=== PATIENT | female | born 1940 | race Caucasian/White ===

== ENCOUNTER 2021-11-21 10:12 | Outpatient (CLI) | payer OTHER, SELFPAY ==
--- NOTE | 2021-11-21 13:00 | US_ITS ---
Final Report Patient: SALVATORE DOAN Facility:?[facility] Patient ID:?[id number] Site Patient ID:?[id number]. Site :?[id number] Study:?US Extremity Right -11/21/2021 1:39:26 PM Ordering Physician:Gloria Rosenthal Final Report: INDICATION: Leg pain and swelling. TECHNIQUE: Ultrasound venous duplex lower right extremity. Compression venous exam was performed using bear-scale, color Doppler, and spectral Doppler analysis. COMPARISON: None. FINDINGS: Deep veins: Sonographic imaging demonstrates the right common femoral, deep femoral, superficial femoral, popliteal, posterior tibial and the contralateral left common femoral veins to be fully compressible with normal color Doppler blood flow. Superficial veins: Greater saphenous vein is fully compressible. Small complex avascular collection posterior to the knee may be hematoma from recent surgery. Correlate for infection. IMPRESSION: No evidence of acute deep venous thrombosis. Dictated by Artemio House MD @ 11/21/2021 2:07:15 PM (Electronic Signature)
== END 2021-11-21 10:13 | disposition home or self-care (01) ==
PROVIDERS: PCP Family Medicine; Visit Provider Physician Assistant Surgical
DX: I82.401 Acute embolism and thrombosis of unspecified deep veins of right lower extremity (principal); Z98.890 Other specified postprocedural states
CPT/HCPCS: 93971

== ENCOUNTER 2022-01-02 09:47 | Outpatient (CLI) | payer OTHER, SELFPAY ==
--- NOTE | 2022-01-02 10:15 | CRLHL7_ITS ---
For Patients: As a result of the Century Cures Act, medical imaging exams and procedure reports are released immediately into your electronic medical record. You may view this report before your referring provider. If you have questions, please contact your health care provider. Indication: RT HIP OSTEOARTHRITIS Comparison: 09/10/2021 Procedure : Informed consent was obtained. The site was marked. Time-out was performed. The skin of the right hip was cleansed with ChloraPrep. A sterile drape was placed. 12 cc of 1 percent lidocaine was administered for superficial anesthesia. Subsequently a 22 gauge spinal needle was introduced into the right hip joint under intermittent fluoroscopic guidance. Subsequently 7 cc 1 percent lidocaine and 2 cc 40 milligram/cc Depo-Medrol were injected. The needle was removed and hemostasis achieved with direct pressure. A dressing was placed. The patient tolerated the procedure well without immediate complication. Total fluoroscopy time 13 seconds. Impression: Successful fluoroscopically guided right hip injection with 80 milligrams of Depo-Medrol. Dictated by Chris Keita MD @ 01/02/2022 11:23:15 AM (Electronically Signed)
== END 2022-01-02 09:48 | disposition home or self-care (01) ==
LOC: RAD 09:48
PROVIDERS: PCP Family Medicine; Visit Provider Physician Assistant Surgical
DX: M16.11 Unilateral primary osteoarthritis, right hip (principal)
CPT/HCPCS: 20610; 77002; J1030; Q9966

== ENCOUNTER 2022-01-21 16:26 | Emergency (ER) | payer OTHER, SELFPAY ==
[2022-01-21 16:33] VITALS: BP 184/101; PULSE 95; RESP 18; TEMP 36.6; O2SAT 95; BMI 30.2
--- NOTE | 2022-01-21 16:49 | ED_ITS ---
HPI - General Adult General Time Seen by Provider: 16:49 Date Seen: 01/21/22 Chief complaint: Allergic Reaction Stated complaint: Bee Sting Swelling in Lip Time Seen by Provider: 01/21/22 16:39 Source: patient Mode of arrival: ambulatory Limitations: no limitations History of Present Illness HPI narrative: Patient is an 81 year white female who has not had any history of insect bite reactions, was feeding gently to insects and birds and got bitten the right finger about an hour ago. She initially had some swelling in her right index finger stinger was gone, but she noticed some itching in her antecubital area and then lower lip swelling. No tongue swelling, no shortness of breath, no rashes. No other systemic signs of illness. Patient has been feeling well recently her medication history is reviewed. Related Data Home Medications Medication Instructions Recorded Confirmed ascorbic acid (vitamin C) 1,000 mg 1,000 mg PO DAILY 11/19/21 12/25/21 tablet aspirin 81 mg tablet,delayed mg PO DAILY 11/19/21 12/25/21 release clopidogrel 75 mg tablet mg PO DAILY 11/19/21 12/25/21 hydrochlorothiazide 12.5 mg capsule mg PO DAILY 11/19/21 12/25/21 hydroxyurea 500 mg capsule 500 mg PO BID 11/19/21 12/25/21 simvastatin 20 mg tablet 20 mg PO DAILY 11/19/21 12/25/21 cholecalciferol (vitamin D3) 25 25 mcg PO QDAY 11/21/21 12/25/21 mcg (1,000 unit) capsule vitamin E (dl, acetate) 450 mg 450 mg PO QDAY 11/21/21 12/25/21 (1,000 unit) capsule Previous Rx's Medication Instructions Recorded Walker- 2 Wheels #1 ea 12/25/21 prednisone 20 mg tablet 20 mg PO BID #10 tabs 01/21/22 Allergies Allergy/AdvReac Type Severity Reaction Status Date / Time alendronate sodium Allergy Severe severe Verified 12/25/21 08:57 aches Review of Systems Status of ROS: Reports: 6 or more systems reviewed and unremarkable except as noted in History and below [facility] Medical History Arthritis Asthma Back problem Cancer Elevated cholesterol High blood pressure History of cerebrovascular accident IBS (irritable bowel syndrome) Kidney problem Neck problem Osteoporosis Surgical History Bone spur History of hysterectomy Hx of breast biopsy Weakness of pelvic floor Family History Family/Other Breast cancer Colorectal cancer Sister Ovarian cancer Father Prostate cancer Paternal Grandmother Diabetes Mother CHF (congestive heart failure) Stroke Family/Other Parkinson disease Alcohol dependence Social History Narrative: Marital Status: 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 HEENT shows some swelling of the lower lip, tongue and rest her throat appear unremarkable Lungs are clear Small amount of redness and swelling in the index finger diffusely little bit of rash in the antecubital area on the right arm Neurologic nonfocal No other skin rashes or problems noted Const: Vital Signs, click to edit/add: Vital Signs - 24 hr 01/21/22 16:33 Temperature 97.8 F Pulse Rate [Left P ulse Oximeter] 95 Respiratory Rate 18 Blood Pressure [Le ft Upper Arm] 184/101 H Pulse Oximetry 95 Oxygen Delivery Me thod Room Air Course Vital Signs Vital signs: Initial Vital Signs Temperature 97.8 F 01/21/22 16:33 Temperature Source Temporal Artery Scan 01/21/22 16:33 Pulse Rate 95 01/21/22 16:33 Respiratory Rate 18 01/21/22 16:33 Blood Pressure 184/101 H 01/21/22 16:33 Blood Pressure Mean 128 01/21/22 16:33 Blood Pressure Position Sitting 01/21/22 16:33 Pulse Oximetry 95 01/21/22 16:33 Oxygen Delivery Method 01/21/22 16:33 Vital Signs Temperature 97.8 F 01/21/22 16:33 Pulse Rate 95 01/21/22 16:33 Respiratory Rate 18 01/21/22 16:33 Blood Pressure 184/101 H 01/21/22 16:33 Pulse Oximetry 95 01/21/22 16:33 Oxygen Delivery Method 01/21/22 16:33 Temperature 97.8 F 01/21/22 16:33 Pulse Rate 95 01/21/22 16:33 Respiratory Rate 18 01/21/22 16:33 Blood Pressure 184/101 H 01/21/22 16:33 Pulse Oximetry 95 01/21/22 16:33 Oxygen Delivery Method 01/21/22 16:33 Medical Decision Making MDM Narrative Medical decision making narrative: The patient will be given Benadryl 50 mg orally and prednisone 50 mg orally now. Will have her take Benadryl 25 mg t.i.d. over the next 3 days as well as prednisone 20 mg b.i.d. starting tomorrow for 5 days. I would recommend she talk about this with her regular physician. She lives locally and will return if there is changes or concerns, throat tightening, difficulty breathing, or other concern. Should be observed in the ED for period of time. And will recheck as above. Discharge Plan Discharge Clinical Impression: Allergic reaction to insect bite Patient Disposition: Home w/ Parent or Adult Condition: Stable Additional Instructions: Light activity, prednisone 20 mg b.i.d. x3 days start tomorrow, Benadryl 25 mg t.i.d. to take an additional tablet tonight and then start 3 tablets tomorrow, return if any difficulty breathing through tongue swelling or other concern. Follow up with primary care doctor in the next few days. Activity Level: Light activity Discharge Diet: Regular Prescriptions: New prednisone 20 mg tablet 20 mg PO BID Qty: 10 0RF No Action hydrochlorothiazide 12.5 mg capsule PO DAILY simvastatin 20 mg tablet 20 mg PO DAILY aspirin 81 mg tablet,delayed release (DR/EC) PO DAILY clopidogrel 75 mg tablet PO DAILY hydroxyurea 500 mg capsule 500 mg PO BID ascorbic acid (vitamin C) 1,000 mg tablet 1,000 mg PO DAILY cholecalciferol (vitamin D3) 25 mcg (1,000 unit) capsule 25 mcg PO QDAY vitamin E (dl, acetate) 450 mg (1,000 unit) capsule 450 mg PO QDAY (DME) Walker- 2 Wheels Misc See Rx Instructions .Route Qty: 1 0RF Rx Instructions: As directed Follow Up/Referrals: Darleen Dacosta DO [Primary Care Provider] - Stand Alone Forms: [facility] Info Instructions
[2022-01-21] MEDS: diphenhydrAMINE 25 MG CAPSULE 50 MG PO (16:54)
[2022-01-21] MEDS: predniSONE 10 MG TABLET 50 MG PO (16:55)
[2022-01-21 17:02] VITALS: PULSE 86; O2SAT 96
== END 2022-01-21 17:03 | disposition home or self-care (01) ==
LOC: ED 16:53
PROVIDERS: Emergency Provider Family Medicine; PCP Family Medicine
DX: S00.561A Insect bite (nonvenomous) of lip, initial encounter (principal); Z91.038 Other insect allergy status
CPT/HCPCS: 99282; 99283; A9270; J7512

== ENCOUNTER 2022-01-28 09:45 | Outpatient (RCR) | payer OTHER, SELFPAY ==
--- NOTE | 2021-12-02 12:10 | PT.OPEX ---
PT [place] [facility] Eval PT [facility] Eval Start: 12/02/21 12:01 Freq: Status: Active Protocol: Document 12/02/21 12:01 REY (Rec: 12/02/21 12:03 REY [id number]) E-Signed By Kenny Villareal DPT, MS Physical Therapy Outpatient Evaluation Insurance Information Recert Due Date 03/02/22 Insurance Name Medicare B,[employer] Medical Diagnosis Post-op right lateral meniscectomy; mild right knee OA Treating Diagnosis R Knee pain, decreased R LE flexibility, gait dysfunction, imbalance and R LE weakness. Subjective Subjective Pt is an 81 y.o. female who presents to PT s/p R lateral meniscectomy on 11/12/21. Has had a difficult past few weeks due to tightness, pain and swelling in her knee. US negative for DVT at MD follow up. Taking Pavlix and oral chemo medication to treat ongoing blood cancer. Using 4WW at home and a SPC to go to appointments, but walking remains very difficult. Months of knee pain and limping prior to surgery with unsuccessful conservative management. Pt also concerned about R hip pain due to OA. Pt ?s goals are to return to performing household cleaning and daily activities with less pain. 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 AGGR factors: stair climbing, walking, sleeping, uneven surfaces, carrying objects, in <>out of cars and low chairs, squatting, lifting. ALLEV factors: ice, movement. Pain Comments 2-3/10 current; 6-7/10 at worst Date of Surgery (If applicable) 11/12/21 Current Work Status Retired Preferred Name Pat Precautions Weight Bearing Status Weight Bear as Tolerated Therapy Limitations/Systems Review Vision Assessment Assessment/Impression Pt continues to display gait compensations and elevated R knee pain levels at 2.5 weeks post-op. Moderate quality of QS with mod A required for SLR . Knee ROM improved from 0-2- 107 deg to 0-0-136 deg following NuStep and heel slides. Impaired quad NM activation with AROM and during stance phase of gait with SPC. Emphasized importance of movement to decreased tightness and edema. She responded well to stretching, strengthening and NuStep with decreased knee pain with amb following today? s session. She will benefit from continued skilled PT intervention. Primary Functional Limitations Stair climbing, walking, sleeping, uneven surfaces, carrying objects, in<>out of cars and low chairs, squatting , lifting Plan of Care Rehabilitation Potential Excellent Physical Therapy Goals Long-term goals to be completed in 10 weeks: 1. Pt will be independent and compliant with HEP 2. Pt will display improved R knee ROM >0-0-128 deg to improve quality of gait. 3. Pt will be able to return to walking for >8 minutes without assistive device to improve cardiovascular fitness . 4. Pt will report >50% improvement in LEFS questionnaire to significantly improve tolerance to functional activities. 5. Pt will display improved R quad, hip flex, ABD and ext strength >4/5 to improve quality of gait. Coordination/Communication With Referral Source Treatment Plan/Direct Interventions Gait Training,Joint Mobilization,Manual Therapy, Neuromuscular Re-ed,Self-Care/ Home Management,Therapeutic Activities,Therapeutic Exercises Frequency/Duration 1x per week for 8-10 visits Patient Will Be Discharged From Therapy Completion of LTG(s),Skills Plateau,Independent w/HEP, Independently Progressing Evaluation Billing Untimed Code Treatment Minutes 24 Complexity Moderate Certification Information Initial Certification Date 12/02/21 Ending Certification Date 03/02/22
== END 2022-01-30 08:45 | disposition home or self-care (01) ==
PROVIDERS: PCP Family Medicine; Referring Provider Physician Assistant Surgical; Visit Provider Physician Assistant Surgical
DX: M25.561 Pain in right knee (principal); Z51.89 Encounter for other specified aftercare
CPT/HCPCS: 97110; 97116; 97140; 97162

== ENCOUNTER 2022-03-13 09:44 | Inpatient (IN) | payer OTHER, SELFPAY ==
[2022-03-13] VITALS (8 sets, daily range): BP systolic 122–164; BP diastolic 54–90; PULSE 74–78; RESP 16–18; TEMP 35.9–36.2; O2SAT 97–99; BMI 30.6; BMI 30.2
--- NOTE | 2022-03-13 10:00 | ED.GENADULT ---
HPI - General Adult General Time Seen by Provider: 10:01 Date Seen: 03/13/22 Chief complaint: Diarrhea Stated complaint: mucus in stool Time Seen by Provider: 03/13/22 10:00 Source: patient and RN notes reviewed Mode of arrival: ambulatory Limitations: no limitations History of Present Illness HPI narrative: Patient is a very pleasant 81-year-old female that was told by her triage nurse at her clinic to come into the ER for mucous diarrheal stools. Patient started on Wednesday having some diarrhea. Through the week the stools have become mucous see and gas. There is not really much stool. She has occasionally noticed just a tiny amount of blood but nothing that was concerning to her. She has had no fevers. She has abdominal cramping like she has to have a stool. No significant abdominal pain. Is able to still eat and drink although eating does induce stooling. Does not feel her abdomen is bloated. There is certainly no nausea or vomiting. She reports a history of being at [facility] in the hospital maybe about a year ago, states she had a colonoscopy for similar symptoms and was told she had ischemic colitis. She thinks she was told she had diverticulitis as well but I am wondering if it was actually diverticulosis. She remembers being told that she had diverticulitis on a prior scope as well and did do feel that she is probably with diverticulosis. She does not have a history of C difficile colitis. She has had no recent antibiotic use. Related Data Home Medications Medication Instructions Recorded Confirmed ascorbic acid (vitamin C) 1,000 mg 1,000 mg PO DAILY 11/19/21 03/13/22 tablet aspirin 81 mg tablet,delayed 81 mg PO DAILY 11/19/21 03/13/22 release clopidogrel 75 mg tablet 75 mg PO DAILY 11/19/21 03/13/22 hydrochlorothiazide 12.5 mg capsule 12.5 mg PO DAILY 11/19/21 03/13/22 hydroxyurea 500 mg capsule 500 mg PO BID 11/19/21 03/13/22 simvastatin 20 mg tablet 20 mg PO DAILY 11/19/21 03/13/22 cholecalciferol (vitamin D3) 25 25 mcg PO QDAY 11/21/21 03/13/22 mcg (1,000 unit) capsule vitamin E (dl, acetate) 450 mg 450 mg PO QDAY 07/01/22 10/21/22 (1,000 unit) capsule Previous Rx's Medication Instructions Recorded Walker- 2 Wheels #1 ea 12/25/21 acetaminophen 325 mg tablet 650 mg PO QID PRN #60 tabs 03/18/22 loperamide 2 mg capsule 2 mg PO QID PRN 7 days #20 caps 03/18/22 Allergies Allergy/AdvReac Type Severity Reaction Status Date / Time alendronate sodium Allergy Severe severe Verified 03/13/22 11:08 aches Review of Systems Status of ROS: Reports: 10 or more systems reviewed and unremarkable except as noted in History and below PFSH [facility] Medical History (Updated 03/26/22 @ 00:01 by ) Acute left flank pain Arthritis Asthma Back problem Cancer Colitis Elevated cholesterol High blood pressure History of cerebrovascular accident IBS (irritable bowel syndrome) JAK2 gene mutation Kidney problem Macrocytosis without anemia Neck problem Osteoarthritis of right hip Osteoarthritis of right knee Osteoporosis Pelvic floor dysfunction in female Polycythemia vera Surgical History (Updated 03/13/22 @ 12:57 by Lori Pyle MD) Bone spur History of hysterectomy Hx of breast biopsy S/P arthroscopic partial lateral meniscectomy Weakness of pelvic floor Family History Family/Other Breast cancer Colorectal cancer Sister Ovarian cancer Father Prostate cancer Paternal Grandmother Diabetes Mother CHF (congestive heart failure) Stroke Family/Other Parkinson disease Alcohol dependence Social History Narrative: Marital Status: 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[employer] Alcohol Use: No Recreational Drug Use: No Smoking Status: Never smoker Do you use any of these nicotine containing products: None Second hand tobacco smoke exposure: No How often do you have a drink containing alcohol: never AUDIT-C Alcohol total score: 0 Non-prescribed substance use: denies use Caffeine: No service: No Exam Const: Vital Signs, click to edit/add: Vital Signs - 24 hr 03/13/22 09:50 03/13/22 10:08 03/13/22 09:50 Temperature 97.2 F L 97.2 F L Pulse Rate [Left P ulse Oximeter] 78 78 Respiratory Rate 16 16 Blood Pressure [Ri ght Upper Arm] 164/90 H 164/90 H Pulse Oximetry 98 99 99 03/13/22 10:00 03/13/22 10:30 03/13/22 11:00 Temperature Pulse Rate [Left P ulse Oximeter] Respiratory Rate Blood Pressure [Ri ght Upper Arm] 127/62 132/58 L 131/80 Pulse Oximetry Documenting provider has reviewed patient's vital signs: yes Common normals: no apparent distress, average body habitus, oriented x3, no limitations, healthy appearing, alert and well nourished General appearance: cooperative, comfortable and well kempt HENMT: Common normals: normocephalic, head/scalp atraumatic, hearing grossly normal bilaterally, external ears normal, external nose normal, nasal mucous membranes and turbinates normal, moist oral mucous membranes, oropharynx normal, dentition normal and gingiva normal Head and scalp: normocephalic and atraumatic Nose: external nose normal and nasal mucous membranes and turbinates normal External ear: external ears normal Eye: Common normals: PERRL, EOMs intact bilaterally, conjunctivae normal and no scleral icterus Conjunctiva: conjunctiva(e) normal Pupil: PERRL Neck & C-Spine: Common normals: full ROM, no lymphadenopathy, supple, no meningeal signs, no JVD and thyroid normal Thyroid: thyroid normal Resp: Common normals: normal respiratory effort, no retractions, no use of accessory muscles and clear to auscultation bilaterally Auscultation: clear to auscultation bilaterally Cardio: Common normals: no JVD, regular rate, regular rhythm, S1 normal heart sound, S2 normal heart sound, no gallops, no clicks and no murmurs Rate: regular rate Rhythm: regular rhythm Heart sounds: S1 normal and S2 normal GI: Common normals: Normal to inspection, nondistended, normoactive bowel sounds present, soft to palpation, non-tender, no hepatosplenomegaly and no masses Palpation: soft and no hepatosplenomegaly Extremity: Other: No lower extremity edema noted Neuro: Common normals: oriented x3 Sensorium/orientation: alert Meningeal signs: no meningeal signs Psych: Appearance: well kempt Course Course Hospital Course: Will establish an IV, give her 250 mL saline bolus as she does clinically look hydrated. If this is ischemic colitis fluid supports certainly can be beneficial. Will await labs, CT abdomen pelvis with IV contrast. Have ordered for stool study of C difficile. With mucousy diarrhea, colitis is certainly high in the differential. This does not sound infectious in nature but will still consider that. Consultations Consultation #1: Have spoke with Dr. Pyle regarding this patient. She agrees with admission. She will look into the last admission at [facility], we will hold on any antibiotics. She will see if she wants to consult surgery or not. I will let patient know that she is being placed in the hospital. Time: 11:43 Vital Signs Vital signs: Initial Vital Signs Temperature 97.2 F L 03/13/22 09:50 Temperature Source Temporal Artery Scan 03/13/22 09:50 Pulse Rate 78 03/13/22 09:50 Pulse Rhythm 03/13/22 09:50 Pulse Strength 3+ Normal 03/13/22 09:50 Respiratory Rate 16 03/13/22 09:50 Blood Pressure 164/90 H 03/13/22 09:50 Blood Pressure Mean 114 03/13/22 09:50 Blood Pressure Position Sitting 03/13/22 09:50 Pulse Oximetry 98 03/13/22 09:50 Vital Signs Temperature 97.2 F L 03/13/22 09:50 Pulse Rate 78 03/13/22 09:50 Respiratory Rate 16 03/13/22 09:50 Blood Pressure 164/90 H 03/13/22 09:50 Pulse Oximetry 98 03/13/22 09:50 Temperature 97 F L 03/18/22 10:44 Pulse Rate 82 03/18/22 07:00 Respiratory Rate 18 03/18/22 10:44 Blood Pressure 117/41 L 03/18/22 07:00 Pulse Oximetry 98 03/18/22 07:00 Oxygen Delivery Method 03/18/22 07:00 Medical Decision Making Lab Data Lab results reviewed: Yes I reviewed the patient's lab results Labs: Lab Results 03/13/22 03/13/22 03/13/22 Range/Units 10:20 10:20 10:20 WBC 4.97 (4.50-11.00) K/uL RBC 3.34 L (4.00-5.20) m/uL Hgb 12.8 (12.0-16.0) gm/dL Hct 40.5 (33.0-51.0) % MCV 121 H (80-100) fL MCH 38 H (26-34) pg MCHC 32 (32-36) gm/dL RDW Coeff of Boy 15.0 (11.5-15.5) % Plt Count 273 (140-440) K/uL Neut % (Auto) 68.0 (42.0-72.0) % Lymph % (Auto) 19.5 L (20-44) % [place] % (Auto) 9.7 (0.0-11.0) % Eos % (Auto) 1.8 (0.0-7.0) % Baso % (Auto) 0.6 (0.0-3.0) % Neut # (Auto) 3.38 (1.7-7.0) K/uL Lymph # (Auto) 1.00 (0.90-2.90) K/uL [place] # (Auto) 0.50 (0.00-0.90) K/UL Eos # (Auto) 0.09 (0.00-0.50) K/uL Baso # (Auto) 0.03 (0.00-0.30) K/uL Abs Immat Gran (auto) 0.02 (0.00-0.30) K/uL Diff Slide Review Acceptable Review (Acceptable) ESR 29 H (2-20) mm/hr Sodium 137 (135-149) mmol/L Potassium 4.2 (3.6-5.1) mmol/L Chloride 98 (96-114) mmol/L Carbon Dioxide 31 (20-32) mmol/L BUN 17 (7-30) mg/dL Creatinine 0.7 (0.5-1.5) mg/dL Estimated Creat Clear 33.86 Estimated GFR 87 ml/min Glucose 94 (60-115) mg/dL Lactate (0.5-1.9) mmol/L Calcium 10.4 (8.4-10.6) mg/dL Total Bilirubin 0.4 (0.1-1.5) mg/dL AST 24 (12-35) U/L ALT 12 (4-35) U/L Alkaline Phosphatase 89 (40-150) U/L C-Reactive Protein 1.5 H (0.5-1.0) mg/dL Total Protein 7.3 (6.0-8.3) g/dL Albumin 3.9 (3.3-5.0) g/dL Stl C.difficile Tox PCR St C. diff Tox Epid 027 SARS-CoV-2 (PCR) (Negative) 03/13/22 03/13/22 03/13/22 Range/Units 10:20 10:20 14:10 WBC (4.50-11.00) K/uL RBC (4.00-5.20) m/uL Hgb (12.0-16.0) gm/dL Hct (33.0-51.0) % MCV (80-100) fL MCH (26-34) pg MCHC (32-36) gm/dL RDW Coeff of Boy (11.5-15.5) % Plt Count (140-440) K/uL Neut % (Auto) (42.0-72.0) % Lymph % (Auto) (20-44) % [place] % (Auto) (0.0-11.0) % Eos % (Auto) (0.0-7.0) % Baso % (Auto) (0.0-3.0) % Neut # (Auto) (1.7-7.0) K/uL Lymph # (Auto) (0.90-2.90) K/uL [place] # (Auto) (0.00-0.90) K/UL Eos # (Auto) (0.00-0.50) K/uL Baso # (Auto) (0.00-0.30) K/uL Abs Immat Gran (auto) (0.00-0.30) K/uL Diff Slide Review (Acceptable) ESR (2-20) mm/hr Sodium (135-149) mmol/L Potassium (3.6-5.1) mmol/L Chloride (96-114) mmol/L Carbon Dioxide (20-32) mmol/L BUN (7-30) mg/dL Creatinine (0.5-1.5) mg/dL Estimated Creat Clear Estimated GFR ml/min Glucose (60-115) mg/dL Lactate 0.9 (0.5-1.9) mmol/L Calcium (8.4-10.6) mg/dL Total Bilirubin (0.1-1.5) mg/dL AST (12-35) U/L ALT (4-35) U/L Alkaline Phosphatase (40-150) U/L C-Reactive Protein (0.5-1.0) mg/dL Total Protein (6.0-8.3) g/dL Albumin (3.3-5.0) g/dL Stl C.difficile Tox PCR Cancelled Negative St C. diff Tox Epid 027 Cancelled PRESUMPTIVE NEGATIVE SARS-CoV-2 (PCR) Negative SARS-CoV-2 (Negative) 03/14/22 03/14/22 03/14/22 Range/Units 08:59 08:59 08:59 WBC 4.27 L (4.50-11.00) K/uL RBC 3.09 L (4.00-5.20) m/uL Hgb 12.1 (12.0-16.0) gm/dL Hct 38.0 (33.0-51.0) % MCV 123 H (80-100) fL MCH 39 H (26-34) pg MCHC 32 (32-36) gm/dL RDW Coeff of Boy 15.4 (11.5-15.5) % Plt Count 273 (140-440) K/uL Neut % (Auto) 67.2 (42.0-72.0) % Lymph % (Auto) 21.3 (20-44) % [place] % (Auto) 8.2 (0.0-11.0) % Eos % (Auto) 2.1 (0.0-7.0) % Baso % (Auto) 0.7 (0.0-3.0) % Neut # (Auto) 2.90 (1.7-7.0) K/uL Lymph # (Auto) 0.90 (0.90-2.90) K/uL [place] # (Auto) 0.40 (0.00-0.90) K/UL Eos # (Auto) 0.10 (0.00-0.50) K/uL Baso # (Auto) 0.00 (0.00-0.30) K/uL Abs Immat Gran (auto) 0.02 (0.00-0.30) K/uL Diff Slide Review (Acceptable) ESR 23 H (2-20) mm/hr Sodium 138 (135-149) mmol/L Potassium 4.1 (3.6-5.1) mmol/L Chloride 104 (96-114) mmol/L Carbon Dioxide 31 (20-32) mmol/L BUN 12 (7-30) mg/dL Creatinine 0.8 (0.5-1.5) mg/dL Estimated Creat Clear 33.86 Estimated GFR 74 ml/min Glucose 127 H (60-115) mg/dL Lactate (0.5-1.9) mmol/L Calcium 8.9 (8.4-10.6) mg/dL Total Bilirubin (0.1-1.5) mg/dL AST (12-35) U/L ALT (4-35) U/L Alkaline Phosphatase (40-150) U/L C-Reactive Protein 1.0 (0.5-1.0) mg/dL Total Protein (6.0-8.3) g/dL Albumin (3.3-5.0) g/dL Stl C.difficile Tox PCR St C. diff Tox Epid 027 SARS-CoV-2 (PCR) (Negative) 03/15/22 03/15/22 03/15/22 Range/Units 06:57 06:57 06:57 WBC 4.14 L (4.50-11.00) K/uL RBC 3.00 L (4.00-5.20) m/uL Hgb 11.6 L (12.0-16.0) gm/dL Hct 36.5 (33.0-51.0) % MCV 122 H (80-100) fL MCH 39 H (26-34) pg MCHC 32 (32-36) gm/dL RDW Coeff of Boy 15.1 (11.5-15.5) % Plt Count 261 (140-440) K/uL Neut % (Auto) 62.3 (42.0-72.0) % Lymph % (Auto) 20.3 (20-44) % [place] % (Auto) 14.0 H (0.0-11.0) % Eos % (Auto) 2.2 (0.0-7.0) % Baso % (Auto) 0.7 (0.0-3.0) % Neut # (Auto) 2.60 (1.7-7.0) K/uL Lymph # (Auto) 0.80 L (0.90-2.90) K/uL [place] # (Auto) 0.60 (0.00-0.90) K/UL Eos # (Auto) 0.10 (0.00-0.50) K/uL Baso # (Auto) 0.00 (0.00-0.30) K/uL Abs Immat Gran (auto) 0.02 (0.00-0.30) K/uL Diff Slide Review (Acceptable) ESR 23 H (2-20) mm/hr Sodium 138 (135-149) mmol/L Potassium 3.8 (3.6-5.1) mmol/L Chloride 107 (96-114) mmol/L Carbon Dioxide 26 (20-32) mmol/L BUN 11 (7-30) mg/dL Creatinine 0.7 (0.5-1.5) mg/dL Estimated Creat Clear 33.86 Estimated GFR 87 ml/min Glucose 91 (60-115) mg/dL Lactate (0.5-1.9) mmol/L Calcium 8.8 (8.4-10.6) mg/dL Total Bilirubin (0.1-1.5) mg/dL AST (12-35) U/L ALT (4-35) U/L Alkaline Phosphatase (40-150) U/L C-Reactive Protein 2.0 H (0.5-1.0) mg/dL Total Protein (6.0-8.3) g/dL Albumin (3.3-5.0) g/dL Stl C.difficile Tox PCR St C. diff Tox Epid 027 SARS-CoV-2 (PCR) (Negative) 03/15/22 03/16/22 03/16/22 Range/Units 16:48 11:30 11:30 WBC 5.25 (4.50-11.00) K/uL RBC 3.49 L (4.00-5.20) m/uL Hgb 13.4 (12.0-16.0) gm/dL Hct 42.7 (33.0-51.0) % MCV 122 H (80-100) fL MCH 38 H (26-34) pg MCHC 31 L (32-36) gm/dL RDW Coeff of Boy (11.5-15.5) % Plt Count 323 (140-440) K/uL Neut % (Auto) (42.0-72.0) % Lymph % (Auto) (20-44) % [place] % (Auto) (0.0-11.0) % Eos % (Auto) (0.0-7.0) % Baso % (Auto) (0.0-3.0) % Neut # (Auto) (1.7-7.0) K/uL Lymph # (Auto) (0.90-2.90) K/uL [place] # (Auto) (0.00-0.90) K/UL Eos # (Auto) (0.00-0.50) K/uL Baso # (Auto) (0.00-0.30) K/uL Abs Immat Gran (auto) (0.00-0.30) K/uL Diff Slide Review (Acceptable) ESR (2-20) mm/hr Sodium (135-149) mmol/L Potassium 3.6 (3.6-5.1) mmol/L Chloride (96-114) mmol/L Carbon Dioxide (20-32) mmol/L BUN (7-30) mg/dL Creatinine (0.5-1.5) mg/dL Estimated Creat Clear Estimated GFR ml/min Glucose (60-115) mg/dL Lactate (0.5-1.9) mmol/L Calcium (8.4-10.6) mg/dL Total Bilirubin (0.1-1.5) mg/dL AST (12-35) U/L ALT (4-35) U/L Alkaline Phosphatase (40-150) U/L C-Reactive Protein 5.0 H (0.5-1.0) mg/dL Total Protein (6.0-8.3) g/dL Albumin (3.3-5.0) g/dL Stl C.difficile Tox PCR Negative St C. diff Tox Epid 027 PRESUMPTIVE NEGATIVE SARS-CoV-2 (PCR) (Negative) Imaging Data CT scan - abdomen: Attestation: I have reviewed the pertinent imaging results. Radiologist's impression: Patient: SALVATORE DOAN Facility:?[facility] Patient ID:?[id number] Site Patient ID:?[id number]. Site :?[id number] Study:?CT Abdomen/Pelvis W/ 79CC [id number]/21/2022 11:18:56 AM Ordering Physician:?Belkis Goodman Final Report: INDICATION: History of colitis with mucousy diarrhea. COMPARISON: March 26, 2021 TECHNIQUE: CT examination of the abdomen and pelvis was performed following the uneventful intravenous administration of 79 cc of Isovue 370. Thin section axial images were obtained from the lung bases through the pubic symphysis. Oral contrast was not administered. Please note that all CT scans at this facility use dose modulation, iterative reconstruction, and/or weight-based dosing when appropriate to reduce radiation dose to as low as reasonably achievable. FINDINGS: LUNG BASES: Lung bases appear normal. The heart size is normal and the lung bases. LIVER/BILIARY SYSTEM:The liver shows no focal mass. Gallbladder is unremarkable. No biliary ductal dilatation. ADRENALS: Normal KIDNEYS, URETERS and BLADDER:The kidneys are normal in size. There are numerous intrarenal calculi bilaterally. These were present previously. No evidence of current or recent obstructive uropathy. Scattered bilateral renal lesions are likely cysts though some of the smaller lesions are indeterminate. Similar to the prior study. The bladder appears normal SPLEEN:Granulomatous calcifications PANCREAS: Appears normal. RETROPERITONEUM and MESENTERY: There is no mass, adenopathy or aortic aneurysm. Atherosclerotic vascular calcifications GASTROINTESTINAL SYSTEM: Relatively severe thickening of a segment of the sigmoid. This does not appear to represent diverticulitis and either represents focal colitis or in long segment malignancy. Of note, the patient had a similar finding on the prior examination. No collection. There is also perianal inflammatory process which is similar to the prior study and probably unrelated to the sigmoid finding. Correlate clinically PELVIS: No mass, adenopathy or free fluid. OSSEOUS STRUCTURES and ABDOMINAL WALL: There is an age-appropriate appearance of the osseous structures.No significant abdominal wall defect. OTHER: No free fluid or free air. IMPRESSION: 1. Relatively severe thickening of a segment of the sigmoid colon measuring about 8 centimeters in length. This is probably not diverticular disease. Differential considerations are relatively severe focal colitis versus a long segment malignancy. Relatively little surrounding inflammatory change compared to the degree of wall thickening. No collection. No mechanical obstruction. No intramural air. The patient had a similar finding March 26, 2021 2. Perianal inflammatory change similar to the prior examination and probably unrelated to the sigmoid process. 3. Bilateral nephrolithiasis without evidence of obstructive uropathy 4. Other nonacute appearing findings as above Please note that all CT scans at this facility use dose modulation, iterative reconstruction, and/or weight-based dosing when appropriate to reduce radiation dose to as low as reasonably achievable. Dictated by Tommy Traylor MD @ 03/13/2022 11:31:27 AM (Electronic Signature) Critical Care Time Critical Care Time Critical Care Time: No Discharge Plan Discharge Clinical Impression: Colitis, Diarrhea Patient Disposition: Admitted As Inpatient Condition: Stable Activity Level: No Restrictions and Activity as Tolerated Discharge Diet: Low Fiber Diet Detail: Low fiber diet, then transition to high fiber diet over 7-10 days.
--- NOTE | 2022-03-13 10:08 | CRLHL7_ITS ---
For Patients: As a result of the Century Cures Act, medical imaging exams and procedure reports are released immediately into your electronic medical record. You may view this report before your referring provider. If you have questions, please contact your health care provider. INDICATION: History of colitis with mucousy diarrhea. COMPARISON: March 26, 2021 TECHNIQUE: CT examination of the abdomen and pelvis was performed following the uneventful intravenous administration of 79 cc of Isovue 370. Thin section axial images were obtained from the lung bases through the pubic symphysis. Oral contrast was not administered. Please note that all CT scans at this facility use dose modulation, iterative reconstruction, and/or weight-based dosing when appropriate to reduce radiation dose to as low as reasonably achievable. FINDINGS: LUNG BASES: Lung bases appear normal. The heart size is normal and the lung bases. LIVER/BILIARY SYSTEM:The liver shows no focal mass. Gallbladder is unremarkable. No biliary ductal dilatation. ADRENALS: Normal KIDNEYS, URETERS and BLADDER:The kidneys are normal in size. There are numerous intrarenal calculi bilaterally. These were present previously. No evidence of current or recent obstructive uropathy. Scattered bilateral renal lesions are likely cysts though some of the smaller lesions are indeterminate. Similar to the prior study. The bladder appears normal SPLEEN:Granulomatous calcifications PANCREAS: Appears normal. RETROPERITONEUM and MESENTERY: There is no mass, adenopathy or aortic aneurysm. Atherosclerotic vascular calcifications GASTROINTESTINAL SYSTEM: Relatively severe thickening of a segment of the sigmoid. This does not appear to represent diverticulitis and either represents focal colitis or in long segment malignancy. Of note, the patient had a similar finding on the prior examination. No collection. There is also perianal inflammatory process which is similar to the prior study and probably unrelated to the sigmoid finding. Correlate clinically PELVIS: No mass, adenopathy or free fluid. OSSEOUS STRUCTURES and ABDOMINAL WALL: There is an age-appropriate appearance of the osseous structures.No significant abdominal wall defect. OTHER: No free fluid or free air. IMPRESSION: 1. Relatively severe thickening of a segment of the sigmoid colon measuring about 8 centimeters in length. This is probably not diverticular disease. Differential considerations are relatively severe focal colitis versus a long segment malignancy. Relatively little surrounding inflammatory change compared to the degree of wall thickening. No collection. No mechanical obstruction. No intramural air. The patient had a similar finding March 26, 2021 2. Perianal inflammatory change similar to the prior examination and probably unrelated to the sigmoid process. 3. Bilateral nephrolithiasis without evidence of obstructive uropathy 4. Other nonacute appearing findings as above Please note that all CT scans at this facility use dose modulation, iterative reconstruction, and/or weight-based dosing when appropriate to reduce radiation dose to as low as reasonably achievable. Dictated by Tommy Traylor MD @ 03/13/2022 11:31:27 AM (Electronically Signed)
[2022-03-13 10:34] LABS: Lactate* 0.9 mmol/L (0.5-1.9)
[2022-03-13 10:53] LABS: Chloride* 98 mmol/L (96-114)
[2022-03-13] MEDS: 0.9 % SODIUM CHLORIDE 250 ml 250 ML IV (10:53)
[2022-03-13 10:54] LABS: Albumin* 3.9 g/dL (3.3-5.0); Potassium* 4.2 mmol/L (3.6-5.1); Sodium* 137 mmol/L (135-149)
[2022-03-13 10:56] LABS: Creatinine* 0.7 mg/dL (0.5-1.5); Est. Creatinine Clearance* 33.86; Estimated Glomerular Filt Rate 87 ml/min
[2022-03-13 10:57] LABS: Alanine Aminotransferase* 12 U/L (4-35); Alkaline Phosphatase* 89 U/L (40-150); Aspartate Amino Transferase* 24 U/L (12-35); Bilirubin Total* 0.4 mg/dL (0.1-1.5); Blood Urea Nitrogen* 17 mg/dL (7-30); Carbon Dioxide* 31 mmol/L (20-32); Glucose* 94 mg/dL (60-115); Total Protein* 7.3 g/dL (6.0-8.3)
[2022-03-13 10:58] LABS: Calcium* 10.4 mg/dL (8.4-10.6)
[2022-03-13 11:00] LABS: C Reactive Protein* 1.5 mg/dL (0.5-1.0)
[2022-03-13 11:04] LABS: Basophils Absolute Auto 0.03 K/uL (0.00-0.30); Basophils Percent Auto 0.6 % (0.0-3.0); Eosinophils Absolute Auto 0.09 K/uL (0.00-0.50); Eosinophils Percent Auto 1.8 % (0.0-7.0); Hematocrit 40.5 % (33.0-51.0); Hemoglobin* 12.8 gm/dL (12.0-16.0); Immature Granulocytes Abs Auto 0.02 K/uL (0.00-0.30); Lymphocytes Percent Auto 19.5 % (20-44); Mean Corpuscular HGB Conc 32 gm/dL (32-36); Mean Corpuscular Hemoglobin 38 pg (26-34); Mean Corpuscular Volume 121 fL (80-100); Monocytes Percent Auto 9.7 % (0.0-11.0); Neutrophils Absolute Auto 3.38 K/uL (1.7-7.0); Platelet Count* 273 K/uL (140-440); Red Blood Count 3.34 m/uL (4.00-5.20); Slide Review Reflex Yes; White Blood Count* 4.97 K/uL (4.50-11.00)
[2022-03-13 11:06] LABS: Slide Review Acceptable Review (Acceptable)
[2022-03-13 11:22] LABS: Erythrocyte SedimentationRate* 29 mm/hr (2-20)
[2022-03-13 11:28] LABS: SARS PCR* Negative SARS-CoV-2 (Negative)
--- NOTE | 2022-03-13 12:53 | PM.IMHP1 ---
Hospitalist- H&P: HPI History of Present Illness Date Seen: 03/13/22 Chief complaint: mucus in stool Narrative: Dolly Chau is a 81 year old female who presented to the ED for concerns of colitis flare. For the past 5 days, Dolly has noted symptoms of frequent stooling with mucus and rare blood, in addition to abdominal cramping and fecal urgency. She tried taking Pepto-Bismol earlier in the week without much relief. Known history of ischemic colitis, hospitalized at [facility] in March 2021 (current symptoms are similar to symptoms from last fall). Last year, had a colonoscopy which exhibited biopsy findings consistent with ischemic colitis. It was also negative for microscopic colitis and CMV immunostain was negative. ER Course and Findings: - normal white blood count, normal hemoglobin, MCV of 121 (baseline) - CT scan reveals severe thickening of a segment of the sigmoid colon, 8 cm in length; concern for severe focal colitis versus long segment malignancy per formal radiology read - mild elevation of inflammatory markers - C diff pending - treated with IV fluids In addition to ischemic colitis, patient also has a remote history of collagenous colitis (1990). She also has a history of IBS and rectal intussusception; had combination prolapse surgery without much relief. 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 Dudley of Oncology for this), R adrenal mass (followed by Endocrinology), and gastric ulcer in 2019. PCP is Dr. Dacosta at the [facility]. Dolly lives with her near [place], daughter Fely lives locally. She previously worked at the [employer] and at the [employer] She is a never smoker, nonalcohol user. Dolly's and Fely which shared medical decision-making duties if needed, and Dolly requests DNR/DNI status. Review of Systems Status of ROS: Reports: 10 or more systems reviewed and unremarkable except as noted in History and below [facility] Medical History (Updated 03/13/22 @ 14:41 by Lori Pyle MD) Acute left flank pain Arthritis Asthma Back problem Cancer Elevated cholesterol High blood pressure History of cerebrovascular accident IBS (irritable bowel syndrome) JAK2 gene mutation Kidney problem Macrocytosis without anemia Neck problem Osteoarthritis of right hip Osteoarthritis of right knee Osteoporosis Pelvic floor dysfunction in female Polycythemia vera Surgical History (Updated 03/13/22 @ 12:57 by Lori Pyle MD) Bone spur History of hysterectomy Hx of breast biopsy S/P arthroscopic partial lateral meniscectomy Weakness of pelvic floor Family History Family/Other Breast cancer Colorectal cancer Sister Ovarian cancer Father Prostate cancer Paternal Grandmother Diabetes Mother CHF (congestive heart failure) Stroke Family/Other Parkinson disease Alcohol dependence Social History Narrative: Marital Status: 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[employer]) Alcohol Use: No Recreational Drug Use: No Smoking Status: Never smoker Do you use any of these nicotine containing products: None Second hand tobacco smoke exposure: No How often do you have a drink containing alcohol: never AUDIT-C Alcohol total score: 0 Non-prescribed substance use: denies use Caffeine: No service: No Meds Home Medications and Allergies Home Medications Medication Instructions Recorded Confirmed Type ascorbic acid (vitamin C) 1,000 mg 1,000 mg PO DAILY 11/19/21 03/13/22 History tablet aspirin 81 mg tablet,delayed 81 mg PO DAILY 11/19/21 03/13/22 History release clopidogrel 75 mg tablet 75 mg PO DAILY 11/19/21 03/13/22 History hydrochlorothiazide 12.5 mg capsule 12.5 mg PO DAILY 11/19/21 03/13/22 History hydroxyurea 500 mg capsule 500 mg PO BID 11/19/21 03/13/22 History simvastatin 20 mg tablet 20 mg PO DAILY 11/19/21 03/13/22 History cholecalciferol (vitamin D3) 25 25 mcg PO QDAY 11/21/21 03/13/22 History mcg (1,000 unit) capsule vitamin E (dl, acetate) 450 mg 450 mg PO QDAY 11/21/21 03/13/22 History (1,000 unit) capsule Allergies Allergy/AdvReac Type Severity Reaction Status Date / Time alendronate sodium Allergy Severe severe Verified 03/13/22 11:08 aches Exam Narrative: Exam Narrative: GEN: Alert HEENT: Normal external ears, EOMIs bilaterally, no scleral icterus CV: RRR, No concerning murmurs, rubs, or gallops R: LCTA bilaterally without concerning wheezing, rales, or rhonchi Abdomen: Soft, nontender, bowel sounds hypoactive but present Ext: wwp, no concerning edema Skin: No concerning skin lesions or rashes on exposed skin Neuro: Nonfocal Psych: Appropriate Const: Vital Signs, click to edit/add: Vital Signs - 24 hr 03/13/22 09:50 03/13/22 10:08 03/13/22 09:50 Temperature 97.2 F L 97.2 F L Pulse Rate [Left P ulse Oximeter] 78 78 Respiratory Rate 16 16 Blood Pressure [Ri ght Upper Arm] 164/90 H 164/90 H Pulse Oximetry 98 99 99 03/13/22 10:00 03/13/22 10:30 03/13/22 11:00 Temperature Pulse Rate [Left P ulse Oximeter] Respiratory Rate Blood Pressure [Ri ght Upper Arm] 127/62 132/58 L 131/80 Pulse Oximetry Hospitalist - H&P: Result Labs Labs: Short CBC 03/13/22 Range/Units 10:20 WBC 4.97 (4.50-11.00) K/uL Hgb 12.8 (12.0-16.0) gm/dL Hct 40.5 (33.0-51.0) % Plt Count 273 (140-440) K/uL BMP 03/13/22 10:20 Sodium 137 Potassium 4.2 Chloride 98 Carbon Dioxide 31 BUN 17 Creatinine 0.7 Glucose 94 Calcium 10.4 Liver Function 03/13/22 Range/Units 10:20 Total Bilirubin 0.4 (0.1-1.5) mg/dL AST 24 (12-35) U/L ALT 12 (4-35) U/L Alkaline Phosphatase 89 (40-150) U/L Albumin 3.9 (3.3-5.0) g/dL IMPRESSION: 1. Relatively severe thickening of a segment of the sigmoid colon measuring about 8 centimeters in length. This is probably not diverticular disease. Differential considerations are relatively severe focal colitis versus a long segment malignancy. Relatively little surrounding inflammatory change compared to the degree of wall thickening. No collection. No mechanical obstruction. No intramural air. The patient had a similar finding March 26, 2021 2. Perianal inflammatory change similar to the prior examination and probably unrelated to the sigmoid process. 3. Bilateral nephrolithiasis without evidence of obstructive uropathy 4. Other nonacute appearing findings as above Please note that all CT scans at this facility use dose modulation, iterative reconstruction, and/or weight-based dosing when appropriate to reduce radiation dose to as low as reasonably achievable. Dictated by Tommy Traylor MD @ 03/13/2022 11:31:27 AM Assessment and Plan Assessment and plan (1) Colitis: Problem comment: Ischemic colitis on 03/2021 colonoscopy at [facility] Status: Acute Assessment and Plan: - await C-diff results - If C-diff negative, start Zosyn; if positive, treat with oral Vanco - clear liquid diet, advance slowly given symptoms and history - IVFs (2) Diarrhea: Status: Acute Plan - per above - continue Plavix and ASA, in addition to SCDs and ambulation, for ppx - continue home medications for chronic conditions as noted in HPI
[2022-03-13] MEDS: PANTOPRAZOLE SODIUM 40 MG INJ IVP (14:57)
[2022-03-13 15:03] LABS: C.Difficile Negative (Negative); CDIFFEPI 027 PRESUMPTIVE NEGATIVE (Negative)
[2022-03-13] MEDS: 0.9 % SODIUM CHLORIDE 1000 ml 1,000 ML 125 ML IV ×2 (15:14→23:17)
[2022-03-13] MEDS: PIPERACILLIN/TAZOBACTAM 3.375 GM in 0.9 % SODIUM CHLORIDE Mini-bag 100 ML IVPB ×2 (16:15→21:23)
[2022-03-14] VITALS (8 sets, daily range): BP systolic 109–146; BP diastolic 57–68; PULSE 68–85; RESP 16–20; TEMP 36.2–36.6; O2SAT 95–97
[2022-03-14] MEDS: PIPERACILLIN/TAZOBACTAM 3.375 GM in 0.9 % SODIUM CHLORIDE Mini-bag 100 ML IVPB ×4 (04:12→21:29)
--- NOTE | 2022-03-14 06:35 | PC.NURSE ---
END OF SHIFT NOTE: PT PLEASANT AND COOPERATIVE. VSS ON RA; AFEBRILE. RESTFUL NIGHT VITALS. UNEVENTFUL NIGHT.
[2022-03-14] MEDS: 0.9 % SODIUM CHLORIDE 1000 ml 1,000 ML 125 ML IV ×2 (08:27→16:24)
[2022-03-14] MEDS: SIMVASTATIN 20 MG TABLET PO (08:57)
[2022-03-14] MEDS: ASPIRIN 81 MG TABLET EC PO (08:57)
[2022-03-14] MEDS: HYDROXYUREA 500 MG CAPSULE PO ×2 (08:57→21:09)
[2022-03-14] MEDS: CLOPIDOGREL 75 MG TABLET PO (08:57)
[2022-03-14 09:04] LABS: Basophils Percent Auto 0.7 % (0.0-3.0); Eosinophils Percent Auto 2.1 % (0.0-7.0); Hemoglobin* 12.1 gm/dL (12.0-16.0); Immature Granulocytes Abs Auto 0.02 K/uL (0.00-0.30); Lymphocytes Percent Auto 21.3 % (20-44); Mean Corpuscular HGB Conc 32 gm/dL (32-36); Mean Corpuscular Hemoglobin 39 pg (26-34); Mean Corpuscular Volume 123 fL (80-100); Monocytes Percent Auto 8.2 % (0.0-11.0); Neutrophils Percent Auto 67.2 % (42.0-72.0); Platelet Count* 273 K/uL (140-440); RDW Coefficient of Variation % 15.4 % (11.5-15.5); Red Blood Count 3.09 m/uL (4.00-5.20); White Blood Count* 4.27 K/uL (4.50-11.00)
[2022-03-14 09:13] LABS: Slide Review Reflex No
[2022-03-14 09:23] LABS: Chloride* 104 mmol/L (96-114)
[2022-03-14 09:24] LABS: Potassium* 4.1 mmol/L (3.6-5.1); Sodium* 138 mmol/L (135-149)
[2022-03-14 09:26] LABS: Creatinine* 0.8 mg/dL (0.5-1.5); Est. Creatinine Clearance* 33.86; Estimated Glomerular Filt Rate 74 ml/min
[2022-03-14 09:27] LABS: Blood Urea Nitrogen* 12 mg/dL (7-30); Calcium* 8.9 mg/dL (8.4-10.6); Carbon Dioxide* 31 mmol/L (20-32); Glucose* 127 mg/dL (60-115)
[2022-03-14 09:47] LABS: Erythrocyte SedimentationRate* 23 mm/hr (2-20)
--- NOTE | 2022-03-14 10:30 | PM.IMPN1 ---
Progress Note: A&P Assessment and plan (1) Colitis: Problem details: Ischemic colitis on 03/2021 colonoscopy at [facility] Status: Acute Assessment and Plan: - patient improving slowly - continue Zosyn and IV fluids - advanced to full liquid diet, can slowly continue to advance if symptoms continue to improve (2) Diarrhea: Status: Acute Plan - per above - comorbidities as noted in H&P (osteoporosis, PV, ASCVD) are stable on home medications Subjective Date Seen: 03/14/22 Interval history: No acute events overnight. Her abdominal cramping is ?a little better?, and she had a partially formed stool this morning, but continues to have fecal urgency. Tolerating clear liquids without nausea. Exam Narrative: Exam Narrative: GEN: Alert HEENT: Normal external ears, EOMIs bilaterally, no scleral icterus CV: Regular rate and rhythm R: LCTA bilaterally without concerning wheezing, rales, or rhonchi Ab: Soft, nontender to palpation Ext: wwp, no concerning edema Skin: No concerning skin lesions or rashes on exposed skin Neuro: Nonfocal Psych: Appropriate Const: Vital Signs, click to edit/add: Vital Signs - 24 hr 03/13/22 11:00 03/13/22 14:12 03/13/22 19:00 Temperature 96.6 F L 96.9 F L Pulse Rate [Left P ulse Oximeter] 75 74 Respiratory Rate 18 16 Blood Pressure [Ri ght Arm] 155/70 H 122/54 L Blood Pressure [Ri ght Upper Arm] 131/80 Pulse Oximetry 97 97 Oxygen Delivery Me thod Room Air Room Air 03/13/22 23:00 03/13/22 23:00 03/14/22 03:00 Temperature Pulse Rate [Left P ulse Oximeter] 74 Respiratory Rate 16 16 16 Blood Pressure [Ri ght Arm] Blood Pressure [Ri ght Upper Arm] Pulse Oximetry Oxygen Delivery Me thod Room Air Room Air 03/14/22 06:00 03/14/22 09:10 Temperature 97.6 F Pulse Rate [Left P ulse Oximeter] 68 Respiratory Rate 18 16 Blood Pressure [Ri ght Arm] 129/62 Blood Pressure [Ri ght Upper Arm] Pulse Oximetry 96 Oxygen Delivery Me thod Room Air Labs Labs: Laboratory Results - last 24 hr 03/13/22 03/13/22 03/13/22 10:20 10:20 10:20 WBC 4.97 RBC 3.34 L Hgb 12.8 Hct 40.5 MCV 121 H MCH 38 H MCHC 32 RDW Coeff of Boy 15.0 Plt Count 273 Neut % (Auto) 68.0 Lymph % (Auto) 19.5 L Bucks % (Auto) 9.7 Eos % (Auto) 1.8 Baso % (Auto) 0.6 Neut # (Auto) 3.38 Lymph # (Auto) 1.00 Bucks # (Auto) 0.50 Eos # (Auto) 0.09 Baso # (Auto) 0.03 Abs Immat Gran (auto) 0.02 Diff Slide Review Acceptable Review ESR 29 H Sodium 137 Potassium 4.2 Chloride 98 Carbon Dioxide 31 BUN 17 Creatinine 0.7 Estimated Creat Clear 33.86 Estimated GFR 87 Glucose 94 Lactate Calcium 10.4 Total Bilirubin 0.4 AST 24 ALT 12 Alkaline Phosphatase 89 C-Reactive Protein 1.5 H Total Protein 7.3 Albumin 3.9 Stl C.difficile Tox PCR St C. diff Tox Epid 027 SARS-CoV-2 (PCR) 03/13/22 03/13/22 03/13/22 10:20 10:20 14:10 WBC RBC Hgb Hct MCV MCH MCHC RDW Coeff of Boy Plt Count Neut % (Auto) Lymph % (Auto) Bucks % (Auto) Eos % (Auto) Baso % (Auto) Neut # (Auto) Lymph # (Auto) Bucks # (Auto) Eos # (Auto) Baso # (Auto) Abs Immat Gran (auto) Diff Slide Review ESR Sodium Potassium Chloride Carbon Dioxide BUN Creatinine Estimated Creat Clear Estimated GFR Glucose Lactate 0.9 Calcium Total Bilirubin AST ALT Alkaline Phosphatase C-Reactive Protein Total Protein Albumin Stl C.difficile Tox PCR Cancelled Negative St C. diff Tox Epid 027 Cancelled PRESUMPTIVE NEGATIVE SARS-CoV-2 (PCR) Negative SARS-CoV-2 03/14/22 03/14/22 03/14/22 08:59 08:59 08:59 WBC 4.27 L RBC 3.09 L Hgb 12.1 Hct 38.0 MCV 123 H MCH 39 H MCHC 32 RDW Coeff of Boy 15.4 Plt Count 273 Neut % (Auto) 67.2 Lymph % (Auto) 21.3 Bucks % (Auto) 8.2 Eos % (Auto) 2.1 Baso % (Auto) 0.7 Neut # (Auto) 2.90 Lymph # (Auto) 0.90 Bucks # (Auto) 0.40 Eos # (Auto) 0.10 Baso # (Auto) 0.00 Abs Immat Gran (auto) 0.02 Diff Slide Review ESR 23 H Sodium 138 Potassium 4.1 Chloride 104 Carbon Dioxide 31 BUN 12 Creatinine 0.8 Estimated Creat Clear 33.86 Estimated GFR 74 Glucose 127 H Lactate Calcium 8.9 Total Bilirubin AST ALT Alkaline Phosphatase C-Reactive Protein 1.0 Total Protein Albumin Stl C.difficile Tox PCR St C. diff Tox Epid 027 SARS-CoV-2 (PCR)
[2022-03-14] MEDS: PANTOPRAZOLE SODIUM 40 MG INJ IVP (13:26)
[2022-03-14] MEDS: ACETAMINOPHEN 325 MG TABLET 975 MG PO (13:26)
--- NOTE | 2022-03-14 17:11 | PC.NURSE ---
Addendum entered by Brittny Kline RN 03/14/22 18:46: Patient tried soft diet for dinner, verbalized that her stool have become more frequent and urgent again, removed food from room and offered clears instead which patient was agreeable to. Original Note: Shift Summary: Patient pleasant and cooperative. Up with SBA and walker. Continues to have small loose stools, however stools are more solid today. C/o abdominal soreness x1, relieved with PRN acetaminophen.
[2022-03-15] VITALS (7 sets, daily range): BP systolic 135–159; BP diastolic 61–75; PULSE 70–91; RESP 16–20; TEMP 36.3–36.6; O2SAT 92–99
[2022-03-15] MEDS: ACETAMINOPHEN 325 MG TABLET 975 MG PO ×2 (00:09→16:11)
[2022-03-15] MEDS: 0.9 % SODIUM CHLORIDE 1000 ml 1,000 ML 125 ML IV ×2 (00:58→09:36)
[2022-03-15] MEDS: PIPERACILLIN/TAZOBACTAM 3.375 GM in 0.9 % SODIUM CHLORIDE Mini-bag 100 ML IVPB ×4 (03:45→22:02)
--- NOTE | 2022-03-15 06:22 | PC.NURSE ---
END OF SHIFT NOTE: PT PLEASANT AND COOPERATIVE. AMBULATES TO BATHROOM WITH WALKER AND SBA; REQUIRES HELP WITH IV POLE. PT C/O LLQ ABDOMINAL PAIN; REBOUND TENDERNESS. SEVERAL BMs. PT WITH EPISODES OF INCONTINENCE. APPLIED ALOE VESTA BARRIER CREAM TO BUTTOCKS.?DENIES CP, SOB, N/V. VSS ON RA; AFEBRILE.
[2022-03-15 07:17] LABS: Basophils Percent Auto 0.7 % (0.0-3.0); Eosinophils Percent Auto 2.2 % (0.0-7.0); Hematocrit 36.5 % (33.0-51.0); Hemoglobin* 11.6 gm/dL (12.0-16.0); Immature Granulocytes Abs Auto 0.02 K/uL (0.00-0.30); Lymphocytes Percent Auto 20.3 % (20-44); Mean Corpuscular HGB Conc 32 gm/dL (32-36); Mean Corpuscular Hemoglobin 39 pg (26-34); Mean Corpuscular Volume 122 fL (80-100); Neutrophils Percent Auto 62.3 % (42.0-72.0); Platelet Count* 261 K/uL (140-440); RDW Coefficient of Variation % 15.1 % (11.5-15.5); White Blood Count* 4.14 K/uL (4.50-11.00)
[2022-03-15 07:18] LABS: Slide Review Reflex No
[2022-03-15 07:34] LABS: Chloride* 107 mmol/L (96-114)
[2022-03-15 07:35] LABS: Potassium* 3.8 mmol/L (3.6-5.1); Sodium* 138 mmol/L (135-149)
[2022-03-15 07:38] LABS: Blood Urea Nitrogen* 11 mg/dL (7-30); Carbon Dioxide* 26 mmol/L (20-32); Creatinine* 0.7 mg/dL (0.5-1.5); Est. Creatinine Clearance* 33.86; Estimated Glomerular Filt Rate 87 ml/min; Glucose* 91 mg/dL (60-115)
[2022-03-15 07:39] LABS: Calcium* 8.8 mg/dL (8.4-10.6)
[2022-03-15 08:06] LABS: Erythrocyte SedimentationRate* 23 mm/hr (2-20)
[2022-03-15] MEDS: SIMVASTATIN 20 MG TABLET PO (09:05)
[2022-03-15] MEDS: ASPIRIN 81 MG TABLET EC PO (09:05)
[2022-03-15] MEDS: CLOPIDOGREL 75 MG TABLET PO (09:05)
[2022-03-15] MEDS: HYDROXYUREA 500 MG CAPSULE PO ×2 (09:05→21:18)
[2022-03-15] MEDS: CALCIUM CARBONATE 500 MG CHEW 1000 MG PO (09:05)
[2022-03-15] MEDS: 0.9 % SODIUM CHLORIDE 1000 ml 1,000 ML 75 ML IV ×2 (12:00→22:02)
[2022-03-15] MEDS: SODIUM CHLORIDE 0.9 % (FLUSH) 10 ML SYRINGE 5 ML IVF (13:41)
[2022-03-15] MEDS: PANTOPRAZOLE SODIUM 40 MG INJ IVP (13:41)
--- NOTE | 2022-03-15 15:03 | P.IMPN_ITS ---
Progress Note: A&P Assessment and plan (1) Colitis: Problem details: Ischemic colitis on 03/2021 colonoscopy at [facility] Status: Acute Assessment and Plan: 1. Continue with piperacillin and tazobactam for now. 2. Will attempt bites to small portions of soft diet. 3. S patient to avoid foods containing dairy products, except for yogurt. (2) Diarrhea: Status: Acute Assessment and Plan: 1. Most likely related to the ischemic colitis. 2. Will nevertheless recheck C diff assay. Plan 1. Patient agreeable to above stated plans and recommendations. 2. Increase activity as tolerated. 3. Check orthostatic blood pressure and pulse. Time Spent With Patient Total time spent: 30 minutes. Subjective Time Seen by Provider: 10:30 Date Seen: 03/15/22 Interval history: No acute events overnight. Her abdominal cramping is ?a little better?, and she had a partially formed stool this morning, but continues to have fecal urgency. Tolerating clear liquids without nausea. Hospital day 3. Patient had a good morning yesterday. In the afternoon she attempted to advance her diet to full liquids but then afterward had a fair amount of cramping and increased frequency of watery stools. Has since continued to consume clear liquids only. During today she is having to have a bowel movement every 1-2 hours. At night she is having a bowel movement every 2-3 hours. Exam Narrative: Exam Narrative: Appears comfortable. No acute distress. Alert, oriented to person, place, time, situation. I observe her playing a board game with her granddaughter and interacting with her daughter. Lungs are clear to auscultation. Heart tones with regular rhythm. Abdomen with active bowel sounds, soft, nontender. Extremities without edema. Independent transfer, station, and gait. Skin is warm, dry, intact. Const: Vital Signs, click to edit/add: Vital Signs - 24 hr 03/14/22 15:28 03/14/22 21:00 03/14/22 23:00 Temperature 97.8 F 97.2 F L Pulse Rate [Left P ulse Oximeter] 69 85 85 Respiratory Rate 20 18 18 Blood Pressure [Ri ght Arm] 109/57 L 146/68 H Pulse Oximetry 96 95 Oxygen Delivery Me thod Room Air Room Air 03/14/22 23:30 03/15/22 03:00 03/15/22 06:00 Temperature Pulse Rate [Left P ulse Oximeter] Respiratory Rate 18 16 16 Blood Pressure [Ri ght Arm] Pulse Oximetry Oxygen Delivery Me thod Room Air 03/15/22 08:00 03/15/22 11:59 Temperature 97.5 F L 97.9 F Pulse Rate [Left P ulse Oximeter] 76 70 Respiratory Rate 20 16 Blood Pressure [Ri ght Arm] 135/70 142/61 H Pulse Oximetry 96 99 Oxygen Delivery Me thod Room Air Room Air Documenting provider has reviewed patient's vital signs: yes Labs Labs: Laboratory Results - last 24 hr 03/15/22 03/15/22 03/15/22 06:57 06:57 06:57 WBC 4.14 L RBC 3.00 L Hgb 11.6 L Hct 36.5 MCV 122 H MCH 39 H MCHC 32 RDW Coeff of Boy 15.1 Plt Count 261 Neut % (Auto) 62.3 Lymph % (Auto) 20.3 [place] % (Auto) 14.0 H Eos % (Auto) 2.2 Baso % (Auto) 0.7 Neut # (Auto) 2.60 Lymph # (Auto) 0.80 L [place] # (Auto) 0.60 Eos # (Auto) 0.10 Baso # (Auto) 0.00 Abs Immat Gran (auto) 0.02 ESR 23 H Sodium 138 Potassium 3.8 Chloride 107 Carbon Dioxide 26 BUN 11 Creatinine 0.7 Estimated Creat Clear 33.86 Estimated GFR 87 Glucose 91 Calcium 8.8 C-Reactive Protein 2.0 H
--- NOTE | 2022-03-15 17:28 | PC.NURSE ---
Shift Summary: Patient pleasant and cooperative. Tolerating soft regular diet without dairy products. Has had frequent loose BM, both continent and incont, throughout shift. Last BM had small formed stool. C/o abdominal soreness this afternoon, managed with rest and PRN acetaminophen. Vitals remain stable and WNL.
[2022-03-15 17:49] LABS: C.Difficile Negative (Negative); CDIFFEPI 027 PRESUMPTIVE NEGATIVE (Negative)
[2022-03-16] VITALS (9 sets, daily range): BP systolic 120–144; BP diastolic 58–71; PULSE 81–91; RESP 16–20; TEMP 36.2–36.6; O2SAT 94–97
[2022-03-16] MEDS: ONDANSETRON 2 MG/ML inj 4 MG IVP (02:11)
[2022-03-16] MEDS: MORPHINE 2 MG/ML inj IVP (02:11)
[2022-03-16] MEDS: SODIUM CHLORIDE 0.9 % (FLUSH) 10 ML SYRINGE 5 ML IVF ×2 (02:14→08:28)
[2022-03-16] MEDS: PIPERACILLIN/TAZOBACTAM 3.375 GM in 0.9 % SODIUM CHLORIDE Mini-bag 100 ML IVPB ×4 (04:00→21:41)
--- NOTE | 2022-03-16 05:23 | PC.NURSE ---
END OF SHIFT NOTE:?PT IS PLEASANT AND CALM. PT UP TO BATHROOM FREQUENTLY THROUGHOUT THE NIGHT. SEVERAL BMs. PT REPORTED INCREASED PAIN TO ABDOMEN IN LLQ WITH MOVEMENT; RELIEF FROM PRN MORPHINE AND ZOFRAN ADMINISTRATION. PT STOOLS RANGE IN CONSISTENCY FROM FORMED TO LOOSE AND MUCOUS. NS 0.9% @75ML/HR.
[2022-03-16] MEDS: HYDROXYUREA 500 MG CAPSULE PO ×2 (08:27→20:00)
[2022-03-16] MEDS: CALCIUM CARBONATE 500 MG CHEW 1000 MG PO (08:27)
[2022-03-16] MEDS: CLOPIDOGREL 75 MG TABLET PO (08:28)
[2022-03-16] MEDS: SIMVASTATIN 20 MG TABLET PO (08:28)
[2022-03-16] MEDS: ASPIRIN 81 MG TABLET EC PO (08:28)
[2022-03-16 11:43] LABS: Hematocrit 42.7 % (33.0-51.0); Hemoglobin* 13.4 gm/dL (12.0-16.0); Mean Corpuscular HGB Conc 31 gm/dL (32-36); Mean Corpuscular Hemoglobin 38 pg (26-34); Mean Corpuscular Volume 122 fL (80-100); Platelet Count* 323 K/uL (140-440); Red Blood Count 3.49 m/uL (4.00-5.20); White Blood Count* 5.25 K/uL (4.50-11.00)
[2022-03-16 11:47] LABS: Potassium* 3.6 mmol/L (3.6-5.1); Slide Review Reflex No
[2022-03-16] MEDS: 0.9 % SODIUM CHLORIDE 1000 ml 1,000 ML 75 ML IV (13:16)
[2022-03-16] MEDS: LOPERAMIDE HCL 2 MG CAPSULE PO ×2 (13:16→17:04)
[2022-03-16] MEDS: PANTOPRAZOLE SODIUM 40 MG INJ IVP (13:16)
--- NOTE | 2022-03-16 15:49 | PM.IMPN1 ---
Progress Note: A&P Assessment and plan (1) Colitis: Problem details: Ischemic colitis on 03/2021 colonoscopy at [facility] Status: Acute Assessment and Plan: 1. Tolerating clear liquid diet. 2. Attempt to advance diet to soft as tolerated. (2) Diarrhea: Status: Acute Assessment and Plan: 1. Much less problematic than yesterday even. Plan 1. Continue with supportive efforts as presently instituted. 2. Will attempt Imodium p.r.n. 3. Continue with IV antibiotics for now. 4. Recommended persistent daily activities. Time Spent With Patient Total time spent: 30 minutes Subjective Time Seen by Provider: 09:00 Date Seen: 03/16/22 Interval history: Hospital day 4. Patient had a relatively good day yesterday. Generally speaking the frequency, volume, and consistency of her stools has decreased substantially. At times she may still defecate every hour but by and large it is now every 2-3 hours. At night she is having a bowel movement every 2-4 hours. Tolerating clear liquid diet. Denies nausea or vomiting. Had a single episode of intense left sided abdominal discomfort that was the alleviated with bowel movement eventually. Denies bloody stools. Exam Narrative: Exam Narrative: Appears comfortable. No acute distress. Alert, oriented to self, place, time, situation. Cooperative, friendly, articulate. Mood and affect are congruent. Lungs are clear to auscultation. Heart tones with regular rhythm, normal S1-S2, without murmur, gallop, or rub. Abdomen with active bowel sounds, soft, nontender. No organomegaly or masses. No rebound or guarding. Extremities without edema. Independent in transfer, station, and gait. Skin is warm, dry, intact. No petechiae, rashes, cyanosis, jaundice, or icterus Const: Vital Signs, click to edit/add: Vital Signs - 24 hr 03/15/22 19:00 03/16/22 00:40 03/16/22 00:40 Temperature 97.4 F L 97.5 F L Pulse Rate [Left P ulse Oximeter] 85 87 87 Respiratory Rate 18 18 18 Blood Pressure [Ri ght Arm] 150/72 H 139/67 Pulse Oximetry 97 95 Oxygen Delivery Me thod Room Air Room Air 03/15/22 23:30 03/16/22 03:00 03/16/22 06:00 Temperature Pulse Rate [Left P ulse Oximeter] 87 Respiratory Rate 18 16 18 Blood Pressure [Ri ght Arm] Pulse Oximetry Oxygen Delivery Me thod Room Air 03/16/22 07:00 03/16/22 07:00 03/16/22 11:00 Temperature 97.8 F 97.1 F L Pulse Rate [Left P ulse Oximeter] 83 83 91 Respiratory Rate 18 18 18 Blood Pressure [Ri ght Arm] 144/63 H 120/64 Pulse Oximetry 94 96 Oxygen Delivery Me thod Room Air Room Air Documenting provider has reviewed patient's vital signs: yes Labs Labs: Laboratory Results - last 24 hr 03/15/22 03/16/22 03/16/22 16:48 11:30 11:30 WBC 5.25 RBC 3.49 L Hgb 13.4 Hct 42.7 MCV 122 H MCH 38 H MCHC 31 L Plt Count 323 Potassium 3.6 C-Reactive Protein 5.0 H Stl C.difficile Tox PCR Negative St C. diff Tox Epid 027 PRESUMPTIVE NEGATIVE
--- NOTE | 2022-03-16 19:54 | PC.NURSE ---
pt continues to have loose stools, immodium ordered and after 2nd dose, stools are less and more formed. Aqua K pack to abdomen for comfort.
[2022-03-16] MEDS: ACETAMINOPHEN 325 MG TABLET 975 MG PO (20:00)
[2022-03-17] VITALS (7 sets, daily range): BP systolic 116–136; BP diastolic 57–80; PULSE 68–85; RESP 16–18; TEMP 36.2–36.8; O2SAT 95–98
[2022-03-17] MEDS: PIPERACILLIN/TAZOBACTAM 3.375 GM in 0.9 % SODIUM CHLORIDE Mini-bag 100 ML IVPB ×4 (03:57→22:13)
--- NOTE | 2022-03-17 07:00 | PC.NURSE ---
END OF SHIFT NOTE: PT PLEASANT AND COOPERATIVE. AMBULATES INDEPENDENTLY WITH WALKER. VSS ON RA; AFEBRILE. DENIES CP, SOB, N/V. RATES ABDOMINAL PAIN 3/10 WITH RELIEF FROM PRN PAIN RELIEVER (SEE eMAR) AND AQUA K PAD. BM x1 THIS SHIFT. PT REPORTS FEELING BETTER TODAY.
[2022-03-17] MEDS: CALCIUM CARBONATE 500 MG CHEW 1000 MG PO (08:36)
[2022-03-17] MEDS: ASPIRIN 81 MG TABLET EC PO (08:36)
[2022-03-17] MEDS: CLOPIDOGREL 75 MG TABLET PO (08:37)
[2022-03-17] MEDS: SIMVASTATIN 20 MG TABLET PO (08:37)
[2022-03-17] MEDS: HYDROXYUREA 500 MG CAPSULE PO ×2 (08:38→20:35)
--- NOTE | 2022-03-17 10:36 | NUTR.NU ---
YENYN with MD consult for diet education related to colitis. RDN visited with patient whom agreed to diet education without designated caregiver present. She reports she has had colitis flares in the past. She typically tries to follow a high-fiber diet. Patient was provided diet education related to colitis.?Education provided on following a low fiber diet for the next ~4 weeks or per MD recommendation. Education included recommendations on following a low-fiber diet of ~8 grams of fiber per day and included foods that are recommended and not recommended.?Verbal and written information as well as sample menus provided from [facility] on nutrition therapy for low-fiber diet with foods list.? Patient verbalized understanding and had no questions or concerns. RDN's contact information was provided and patient was encouraged to contact RDN with questions.
[2022-03-17] MEDS: SODIUM CHLORIDE 0.9 % (FLUSH) 10 ML SYRINGE 5 ML IVF ×2 (10:53→22:14)
[2022-03-17] MEDS: ACETAMINOPHEN 325 MG TABLET 975 MG PO ×2 (10:54→19:03)
[2022-03-17] MEDS: POTASSIUM BICARB 25 MEQ EFFERVESCENT TAB PO (11:22)
[2022-03-17] MEDS: FUROSEMIDE 20 MG TABLET 10 MG PO (11:22)
--- NOTE | 2022-03-17 14:10 | PC.NURSE ---
PT UP AMBULATING IN HALLWAY, STEADY ON FEET. TYLENOL X1 FOR ABD. DISCOMFORT R/T BM'S. PT DECLINED IMMODIUM WHEN OFFERED, 3 SMALL STOOLS DURING SHIFT BUT MORE FORMED. TOLERATING REGULAR DIET AND DENIES NAUSEA. PT REQUIRING ANOTHER DAY FOR IV ABX - CONTINUE ZOSYN - HOPEFUL FOR D/C HOME TOMORROW.
[2022-03-17] MEDS: PANTOPRAZOLE SODIUM 40 MG INJ IVP (14:19)
[2022-03-17] MEDS: LOPERAMIDE HCL 2 MG CAPSULE PO (14:19)
[2022-03-17] MEDS: 0.9 % SODIUM CHLORIDE 250 ml IV (16:00)
--- NOTE | 2022-03-17 16:18 | PM.IMPN1 ---
Progress Note: A&P Assessment and plan (1) Colitis: Problem details: Ischemic colitis on 03/2021 colonoscopy at [facility] Status: Acute Assessment and Plan: Her ischemic colitis is much improved. Continue to see how she tolerates soft diet. Single lock IV. (2) Diarrhea: Status: Acute Assessment and Plan: Much improved. Time Spent With Patient Total time spent: 20 minutes Subjective Time Seen by Provider: 09:30 Date Seen: 03/17/22 Interval history: Hospital day 5. Generally speaking the frequency, volume of her stools has decreased substantially. The consistency of her stools as improve. Was able to sleep through most of the night last night. Tolerating soft diet. Denies nausea or vomiting. Abdominal discomfort much more tolerable now. Denies bloody stools. Tolerating increased activities. Exam Narrative: Exam Narrative: No acute distress. Appears comfortable. Alert, oriented to self, place, time, situation. Friendly, cooperative. Mood and affect are congruent. Lungs are clear to auscultation without wheezing, rhonchi, or rales. No CVA tenderness. Heart tones with regular rhythm, normal S1-S2, without murmur, gallop, or rub. Abdomen with active bowel sounds, soft, nontender. Extremities without edema. Const: Vital Signs, click to edit/add: Vital Signs - 24 hr 03/16/22 19:00 03/16/22 23:00 03/16/22 23:00 Temperature 97.6 F Pulse Rate [Left P ulse Oximeter] 87 87 Respiratory Rate 20 18 18 Blood Pressure [Ri ght Arm] 138/58 L Pulse Oximetry 97 Oxygen Delivery Me thod Room Air Room Air 03/16/22 23:30 03/17/22 03:00 03/17/22 06:00 Temperature Pulse Rate [Left P ulse Oximeter] Respiratory Rate 18 16 18 Blood Pressure [Ri ght Arm] Pulse Oximetry Oxygen Delivery Me thod Room Air 03/17/22 07:00 03/17/22 07:00 03/17/22 11:00 Temperature 97.1 F L 98 F Pulse Rate [Left P ulse Oximeter] 78 78 73 Respiratory Rate 18 18 18 Blood Pressure [Ri ght Arm] 136/67 125/57 L Pulse Oximetry 96 96 Oxygen Delivery Nc thod Room Air Room Air 03/17/22 15:00 03/17/22 15:00 Temperature 97.9 F Pulse Rate [Left P ulse Oximeter] 73 68 Respiratory Rate 18 18 Blood Pressure [Ri ght Arm] 123/65 Pulse Oximetry 98 Oxygen Delivery Me thod Room Air Documenting provider has reviewed patient's vital signs: yes
[2022-03-18 03:00] VITALS: BP 129/73; PULSE 73; RESP 16; TEMP 36.3; O2SAT 95
[2022-03-18] MEDS: PIPERACILLIN/TAZOBACTAM 3.375 GM in 0.9 % SODIUM CHLORIDE Mini-bag 100 ML IVPB ×2 (03:38→09:09)
[2022-03-18 06:00] VITALS: RESP 18
--- NOTE | 2022-03-18 06:50 | PC.NURSE ---
23-07: pleasant and cooperative. Indep in room with walker. No c/o pain. Pt states she is passing flatus frequently, she denies any gas pains. No BM. Pt has a BM?log at her bedside. VSS.?
[2022-03-18 07:00] VITALS: BP 117/41; PULSE 82; RESP 18; TEMP 36.1; O2SAT 98
[2022-03-18 07:54] LABS: Hematocrit 33.3 % (33.0-51.0); Hemoglobin* 10.6 gm/dL (12.0-16.0); Mean Corpuscular HGB Conc 32 gm/dL (32-36); Mean Corpuscular Hemoglobin 39 pg (26-34); Mean Corpuscular Volume 121 fL (80-100); Platelet Count* 301 K/uL (140-440); Red Blood Count 2.75 m/uL (4.00-5.20); White Blood Count* 2.92 K/uL (4.50-11.00)
[2022-03-18 07:55] LABS: Slide Review Reflex No
[2022-03-18 08:10] LABS: Potassium* 3.6 mmol/L (3.6-5.1)
[2022-03-18 08:17] LABS: C Reactive Protein* 2.9 mg/dL (0.5-1.0)
[2022-03-18] MEDS: ASPIRIN 81 MG TABLET EC PO (08:42)
[2022-03-18] MEDS: hydroCHLOROthiazide 12.5 MG CAPSULE PO (08:42)
[2022-03-18] MEDS: CLOPIDOGREL 75 MG TABLET PO (08:42)
[2022-03-18] MEDS: CALCIUM CARBONATE 500 MG CHEW 1000 MG PO (08:42)
[2022-03-18] MEDS: SIMVASTATIN 20 MG TABLET PO (08:43)
[2022-03-18] MEDS: HYDROXYUREA 500 MG CAPSULE PO (08:44)
[2022-03-18] MEDS: SODIUM CHLORIDE 0.9 % (FLUSH) 10 ML SYRINGE 5 ML IVF (08:46)
[2022-03-18 10:44] VITALS: RESP 18; TEMP 36.1
--- NOTE | 2022-03-18 11:35 | P.DS_ITS ---
DS: Providers Provider Time Seen by Provider: 08:00 Date Seen: 03/18/22 Date of admission: 03/16/22 15:38 Primary care physician: Darleen Dacosta DO Admitting Clinician: Lori Pyle MD Consults: 03/16/22 15:48 Consult to Nutrition [CONS] Routine Comment: Reason for consult:: Miscellaneous Comment: Ischemic colitis, slowly advanced diet Attending Physician on discharge: Good Jeter MD Date of Discharge: 03/18/22 DS: Diagnosis Discharge Diagnosis (1) Acute ischemic colitis: Status: Acute Problem details: 03/2021 colonoscopy at [facility]: ischemic colitis (2) Anemia, macrocytic: Status: Acute (3) Leukopenia due to antineoplastic chemotherapy: Status: Acute (4) Polycythemia vera: Status: Acute (5) Diarrhea: Status: Acute (6) Abdominal pain: Status: Acute (7) Dehydration: Status: Acute DS: Summary Hospital Course Hospital Course: Dolly Chau is a 81 year old female who presented to the ED for concerns of colitis flare.? For the past 5 days, Dolly has noted symptoms of frequent stooling with mucus and rare blood, in addition to abdominal cramping and fecal urgency. She tried taking Pepto-Bismol earlier in the week without much relief. Known history of ischemic colitis, hospitalized at [facility] in March 2021 (current symptoms are similar to symptoms from last fall). Last year, had a colonoscopy which exhibited biopsy findings consistent with ischemic colitis.? It was also negative for microscopic colitis and CMV immunostain was negative. ER Course and Findings: ?- normal white blood count, normal hemoglobin, MCV of 121 (baseline) ?- CT scan reveals severe thickening of a segment of the sigmoid colon, 8 cm in length; concern for severe focal colitis versus long segment malignancy per formal radiology read ?- mild elevation of inflammatory markers ?- C diff was negative ?- treated with IV fluids, analgesics, and antiemetics On admission to the hospital after the pain was better controlled and she was better hydrated, we slowly advanced her diet as tolerated and withdrew the IV fluids. She remained stable for 24 hours in hospital and was thus discharged with followup as specified. Status at Discharge Cognitive/behavioral status at discharge: Mentation and cognition were sharp and intact throughout the hospitalization. Functional status at discharge: independent ambulation Overall status at discharge: patient is back to baseline Time Spent with Patient Time attestation: Total time spent providing and/or coordinating discharge services: Time spent: Greater than 30 minutes Exam Narrative: Exam Narrative: No acute distress.? Appears comfortable. Alert, oriented to self, place, time, situation.? Friendly, cooperative.? Mood and affect are congruent.? Lungs are clear to auscultation without wheezing, rhonchi, or rales. No CVA tenderness.? Heart tones with regular rhythm, normal S1-S2, without murmur, gallop, or rub.? Abdomen with active bowel sounds, soft, nontender.? Extremities without edema. Const: Vital Signs, click to edit/add: Vital Signs - 24 hr 03/17/22 15:00 03/17/22 15:00 03/17/22 20:10 Temperature 97.9 F 98.2 F Pulse Rate [Left P ulse Oximeter] 73 68 85 Respiratory Rate 18 18 18 Blood Pressure [Ri ght Arm] 123/65 132/64 Pulse Oximetry 98 95 Oxygen Delivery Me thod Room Air Room Air 03/17/22 23:00 03/17/22 23:00 03/18/22 03:00 Temperature 97.1 F L 97.3 F L Pulse Rate [Left P ulse Oximeter] 76 76 73 Respiratory Rate 18 18 16 Blood Pressure [Ri ght Arm] 116/80 129/73 Pulse Oximetry 97 95 Oxygen Delivery Me thod Room Air Room Air 03/18/22 06:00 03/18/22 07:00 03/18/22 07:00 Temperature 97 F L Pulse Rate [Left P ulse Oximeter] 82 82 Respiratory Rate 18 18 18 Blood Pressure [Ri ght Arm] 117/41 L Pulse Oximetry 98 Oxygen Delivery Me thod Room Air 03/18/22 10:44 Temperature 97 F L Pulse Rate [Left P ulse Oximeter] Respiratory Rate 18 Blood Pressure [Ri ght Arm] Pulse Oximetry Oxygen Delivery Me thod Documenting provider has reviewed patient's vital signs: yes DS: Data Data Completed and Pending Labs on day of discharge: Labs from last 24 hours 03/18/22 03/18/22 07:24 07:24 WBC 2.92 L RBC 2.75 L Hgb 10.6 L Hct 33.3 MCV 121 H MCH 39 H MCHC 32 Plt Count 301 Potassium 3.6 C-Reactive Protein 2.[address] scan - abdomen and pelvis: Attestation: I have reviewed the pertinent imaging results. Radiologist's impression: COMPARISON: March 26, 2021 TECHNIQUE: CT examination of the abdomen and pelvis was performed following the uneventful intravenous administration of 79 cc of Isovue 370. Thin section axial images were obtained from the lung bases through the pubic symphysis. ?Oral contrast was not administered.? Please note that all CT scans at this facility use dose modulation, iterative reconstruction, and/or weight-based dosing when appropriate to reduce radiation dose to as low as reasonably achievable. FINDINGS: LUNG BASES: Lung bases appear normal. The heart size is normal and the lung bases. LIVER/BILIARY SYSTEM:The liver shows no focal mass. Gallbladder is unremarkable. No biliary ductal dilatation. ADRENALS: Normal KIDNEYS, URETERS and BLADDER:The kidneys are normal in size. There are numerous intrarenal calculi bilaterally. These were present previously. No evidence of current or recent obstructive uropathy. Scattered bilateral renal lesions are likely cysts though some of the smaller lesions are indeterminate. Similar to the prior study. The bladder appears normal SPLEEN:Granulomatous calcifications PANCREAS: Appears normal. RETROPERITONEUM and MESENTERY: There is no mass, adenopathy or aortic aneurysm. Atherosclerotic vascular calcifications GASTROINTESTINAL SYSTEM: Relatively severe thickening of a segment of the sigmoid. This does not appear to represent diverticulitis and either represents focal colitis or in long segment malignancy. Of note, the patient had a similar finding on the prior examination. No collection. There is also perianal inflammatory process which is similar to the prior study and probably unrelated to the sigmoid finding. Correlate clinically PELVIS: No mass, adenopathy or free fluid. OSSEOUS STRUCTURES and ABDOMINAL WALL: There is an age-appropriate appearance of the osseous structures.No significant abdominal wall defect. OTHER: No free fluid or free air. IMPRESSION: 1. Relatively severe thickening of a segment of the sigmoid colon measuring about 8 centimeters in length. This is probably not diverticular disease. Differential considerations are relatively severe focal colitis versus a long segment malignancy. Relatively little surrounding inflammatory change compared to the degree of wall thickening. No collection. No mechanical obstruction. No intramural air. The patient had a similar finding March 26, 2021 2. Perianal inflammatory change similar to the prior examination and probably unrelated to the sigmoid process. 3. Bilateral nephrolithiasis without evidence of obstructive uropathy 4. Other nonacute appearing findings as above Discharge Plan Discharge Disposition: Home, Self-Care Date of Admission: 03/16/22 15:38 Attending Provider on Discharge: Good Jeter Primary Care Provider: Darleen Dacosta Condition: Stable Anticipated Discharge Date/Time: 03/18/22 11:00 Discharge Medications: New loperamide 2 mg Capsule 2 mg PO QID PRN7 Days Qty: 20 0RF acetaminophen 325 mg tablet 650 mg PO QID PRNQty: 60 0RF Continued hydrochlorothiazide 12.5 mg capsule 12.5 mg PO DAILY simvastatin 20 mg tablet 20 mg PO DAILY aspirin 81 mg tablet,delayed release (DR/EC) 81 mg PO DAILY clopidogrel 75 mg tablet 75 mg PO DAILY ascorbic acid (vitamin C) 1,000 mg tablet 1,000 mg PO DAILY cholecalciferol (vitamin D3) 25 mcg (1,000 unit) capsule 25 mcg PO QDAY vitamin E (dl, acetate) 450 mg (1,000 unit) capsule 450 mg PO QDAY Held hydroxyurea 500 mg capsule 500 mg PO BID Hold Instructions: Resume on 03/23/22. Due to low blood counts, hold hydroxyurea and resume on 23 March 2022. No Action (DME) Walker- 2 Wheels Misc See Rx Instructions .Route Qty: 1 0RF Rx Instructions: As directed Discharge Orders: Discharge Order (Routine); Ordered 03/18/22 Ordered By: Good Jeter Patient Education: Loperamide (By mouth), Acetaminophen (By mouth), Low Fiber Diet (GEN), Ischemic Colitis (GEN) Activity Level: No Restrictions and Activity as Tolerated Discharge Diet: Low Fiber Diet Detail: Low fiber diet, then transition to high fiber diet over 7-10 days. Follow Up Appointments: Darleen Dacosta DO [Primary Care Provider] - 03/23/23 11:30 am (Check in with lab for pre-visit CBC) Forms: [employer] Info Instructions
--- NOTE | 2022-03-18 12:24 | PC.NURSE ---
D/C INSTRUCTIONS REVIEWED WITH PT. INSTRUCTED PT TO HOLD HYDROXYUREA D/T LOW BLOOD CTS - INTERPERSONAL COMMUNICATIONS PROFESSOR DID REVIEW WBC COUNT WITH PATIENT TO CONFIRM THIS IS LOW PT WAS QUESTIONING HOLDING MED. PT THEN CALLED ONCOLOGIST TO CONSULT WITH THEM WELL. PT VERBALIZED UNDERSTANDING OF D/C INSTRUCTIONS. IV OUT. PT D/C'D FROM M/S FLOOR AT 1200. PT DROVE HOME FROM HOSP, NO NARCS GIVEN WITHIN LAST 24HRS.
== END 2022-03-18 12:00 | disposition home or self-care (01) | DRG 394 ==
LOC: ED 11:43 → MEDSURG 13:22
PROVIDERS: Internal Medicine; Admitting Provider Family Medicine; Emergency Provider Family Medicine; PCP Family Medicine; Visit Provider Family Medicine
DX: K55.031 Focal (segmental) acute (reversible) ischemia of large intestine (principal); D47.1 Chronic myeloproliferative disease; D70.1 Agranulocytosis secondary to cancer chemotherapy; T45.1X5A Adverse effect of antineoplastic and immunosuppressive drugs, initial encounter; E86.0 Dehydration; K58.0 Irritable bowel syndrome with diarrhea; D53.9 Nutritional anemia, unspecified; I10 Essential (primary) hypertension; E78.5 Hyperlipidemia, unspecified; D45 Polycythemia vera; Z86.73 Personal history of transient ischemic attack (TIA), and cerebral infarction without residual deficits; I25.2 Old myocardial infarction; E27.8 Other specified disorders of adrenal gland; N20.0 Calculus of kidney; D75.89 Other specified diseases of blood and blood-forming organs
CPT/HCPCS: 36415; 74177; 80048; 80053; 83605; 84132; 85025; 85027; 85651; 86140; 87493; 87635; 94761; 99284; 99285; A9270; C9113; G0378; J2270; J2405; J2543; J7030; J7050; Q9967; S0176

== ENCOUNTER 2022-06-20 13:43 | Outpatient (CLI) | payer OTHER, SELFPAY | END 2022-06-20 13:44 | disposition home or self-care (01) | LOC: LAB 13:45 | PROVIDERS: PCP Family Medicine; Visit Provider Orthopaedic Surgery Sports Medicine | DX: Z01.818 Encounter for other preprocedural examination (principal) | CPT/HCPCS: 36415; 86850; 86900; 86901 ==

== ENCOUNTER 2022-06-22 09:52 | Day surgery (SDC) | payer OTHER, SELFPAY ==
[2022-03-13 13:26] VITALS: BP 155/70; PULSE 75; RESP 18; TEMP 36.4; O2SAT 97; BMI 30.3
[2022-06-22] VITALS (23 sets, daily range): BP systolic 72–147; BP diastolic 38–83; PULSE 64–88; RESP 9–20; TEMP 36.2–36.8; O2SAT 91–100; BMI 30.4
--- NOTE | 2022-06-22 10:33 | CRLHL7_ITS ---
For Patients: As a result of the Cures Act, medical imaging exams and procedure reports are released immediately into your electronic medical record. You may view this report before your referring provider. If you have questions, please contact your health care provider. Indication: total right hip replacement, post op Technique: AP hip centered pelvis and lateral view right hip Findings/Impression: Hardware from a right total hip arthroplasty is in satisfactory position. Bone alignment is normal. No sign of acute fracture. Postop changes are within normal limits. Dictated by Chris Keita MD @ 06/22/2022 3:52:14 PM (Electronically Signed)
[2022-06-22] MEDS: OXYCODONE (CR) 10 MG TAB.ER.12H PO (10:35)
[2022-06-22] MEDS: CELECOXIB 200 MG CAPSULE PO (10:35)
[2022-06-22] MEDS: ACETAMINOPHEN 500 MG TABLET 1000 MG PO ×3 (10:35→22:04)
[2022-06-22] MEDS: SODIUM CHLORIDE 0.9 % (FLUSH) 10 ML SYRINGE IVF (10:50)
[2022-06-22] MEDS: LACTATED RINGERS 1000 ML 1,000 ML 100 ML IV (10:50)
[2022-06-22] MEDS: MIDAZOLAM HCL 1 MG/ML inj IVP (11:00)
[2022-06-22] MEDS: fentaNYL 100 MCG/2 ML inj IVP (11:00)
--- NOTE | 2022-06-22 11:11 | SUR.PREOP ---
TIME?OUT:?1100 PT/RN/MDA?VERIFICATION?OF?SURGICAL?SITE,?PROCEDURE,?AND?CONSENT OBTAINED?PRIOR?TO?INVASIVE?PROCEDURE.
[2022-06-22] MEDS: CEFAZOLIN 2 GM in 0.9 % SODIUM CHLORIDE Mini-bag 100 ML IVPB ×2 (11:40→17:55)
[2022-06-22] MEDS: TRANEXAMIC ACID 100 MG/ML INJ 1000 MG IV (11:45)
--- NOTE | 2022-06-22 11:45 | W.PM.NB ---
Nerve Block Nerve Block Time Seen by Provider: 11:00 Date Seen: 06/22/22 Type of block requested by surgeon for post-operative analgesia: GREGORIA/LFCN Side: right Time out performed: Yes Verification of patient name: Yes Verification of date of : Yes Site marking: site marked Name of person performing procedure: Liam Continuous monitoring Was continuous monitoring of O2 sat, B/P, cardiac monitor technician, recorded every 15 minutes?: Yes Procedure Checklist: sterile prep, needles and gloves Ultrasound guided. Images saved: Yes Medications given in 5ml increments after negative aspiration: Ropivicaine %: 0.5 mL: 30 Needle gauge: 20 Decadron (mg): 10 Precedex (mcg): 25 Patient tolerated procedure well: Yes Additional comments: Needle noted below psoas tendon needle noted adjacent to LFCN Block Charges Block Charge (with Pro Fee): Other Periph Nerve Block Use of Ultrasound Machine for Block: Yes- US Guidance/pain block
--- NOTE | 2022-06-22 12:44 | PM.ORPRC ---
Procedure Note Date of procedure: 06/22/22 Procedure: PREOPERATIVE DIAGNOSIS: 1. Right hip osteoarthritis, severe, primary POSTOPERATIVE DIAGNOSIS: 1. Right hip osteoarthritis, severe, primary PROCEDURE: 1. Right total hip arthroplasty-anterior approach 2. 84162 - intraoperative fluoroscopy up to 1 hour. SURGEON: Piter Patrick MD. QUALITY ASSURANCE TESTER: Galo Bonds PA-C; KRISTA Black - Of note, a skilled assistant education director was critical for this case to aid in patient positioning, tissue retraction, limb manipulation/positioning, and closure. ANESTHESIA: Spinal anesthetic EBL: 400 mL IMPLANTS: DePuy J&J uncemented total hip [place] cup size 50, single cancellous acetabular screw, hole eliminator, +4 neutral liner Actis stem, standard offset, size 8 +1 mm ceramic 32mm head COMPLICATIONS: None evident INDICATIONS: The patient is a pleasant 82-year-old female who has experienced severe right hip pain and difficulty bearing weight. Workup included x-rays which revealed severe osteoarthrosis in the hip. Given the deformity, the dysfunction, and the pain, as well as the failure of nonoperative management, recommendation was made for surgery. FINDINGS: Full-thickness chondral loss broadly for the femoral head. Osteophytes around the femoral head/neck junction. Moderate effusion upon entering the joint. DESCRIPTION OF PROCEDURE: Following a thorough discussion of risks, benefits, and alternatives consent was obtained and the right hip was marked. The patient was brought to the operating room and placed supine on the operating table. Induction of anesthesia was undertaken. 2 g IV Ancef and 1 g tranexamic acid was administered within 1 hr of incision preoperatively. Proper time-out was performed identifying proper patient, site, procedure. The operative extremity was prepped and draped in the appropriate sterile fashion using ChloraPrep after the patient was positioned on the [place] table with head in neutral alignment and all bony prominences well padded. C-arm fluoroscopic imaging was utilized to confirm proper pelvis rotation and position, and to get true AP films of both the contralateral left, and the affected right hip. This is for comparison. A longitudinal incision was made starting approximately 1 cm distal to the ASIS, and 3-4 cm lateral. The incision was extended distally aiming toward the lateral border the patella. Sharp incision through skin and bovie cautery through the subcutaneous tissue allowed identification of the TFL fascia. This was sharply divided, and the fascia bluntly released from the muscle fibers as we dissected medial. Upon coming to the medial border, we were able to retract the TFL laterally, and penetrated the deeper fascia and identify the crossing circumflex vessels. These were ligated/cauterized. The rectus was elevated from the capsule, and retractors placed laterally and medially along the femoral neck to help with visualization of the capsule. We then performed an inverted T capsulotomy. The capsule was tagged for later repair. Retractors were placed inside the capsule. The femoral neck was visualized after releasing medially down to the lesser trochanter, along the saddle laterally, and up onto the acetabulum. The femoral neck cut was made in line with our preoperative templating. The head was removed in a single piece, and sized. We turned our attention to acetabular preparation. Initially, the labrum was resected from around the perimeter, the pulvinar was excised, allowing us to visualize the false wall. We started the reaming with a 43 mm reamer. This was medialized down to the true wall. We then enlarged our reamers sequentially up to one size less than the selected cup size. We trialed at the same size and found it to have an excellent fit. The selected cup was then opened, inserted, and impacted in line with the goal of 40? of abduction, and 20-25? of anteversion. This was confirmed on C-arm fluoroscopic imaging to be in the appropriate/goal position. Once the cup was placed we placed a hole eliminator and a liner consistent with preop planning. Attention was turned to the femoral preparation. The limb was extended, externally rotated, and adducted. The posteromedial capsule was released, as retractors were placed allowing excellent access to the proximal femur. Initially a hand box folder was followed by canal finder followed by various broaches. We broached sequentially up to the size noted above, found it to have excellent rotational control, and trialing various heads and necks, revealed that appropriate neck offset, and the above noted head size provided the greatest stability, and spiritism of length, and offset. C-arm fluoroscopic imaging confirmed position of the stem, as well as leg lengths, which were compared with the pre procedure all fluoroscopic images. Trial implants were removed, the real femoral stem inserted, as was the appropriate head. After reducing, the leg was placed through range of motion and stability was confirmed anterior, posterior, and lateral. A 3 min Betadine soak was then performed, and thorough irrigation with normal saline followed. Closure of the capsule was performed with #1 PDS. Bleeding was confirmed to be controlled at this stage, and the TFL fascia was closed with #0 strata fix. Subcutaneous, and subcuticular closure was performed with 2-0 Vicryl and 4-0 Monocryl, respectively. Dressings were applied, and the patient was awoken from anesthesia and transferred the PACU in stable condition. A skilled assistant education director was critical for this case to aid in patient positioning, tissue retraction, acetabular and proximal femoral exposure, limb manipulation/positioning, dislocation/relocation, patient safety, and closure. PLAN: 1. Weight bear as tolerated operative extremity. 2. 23 hr perioperative antibiotics. 3. Ice. 4. PT/OT consults for ambulation assistance/mobility education. 5. Social work consult for discharge planning. 6. DVT prophylaxis with at SCDs, Faisal Hose, and Xarelto x5 days followed by aspirin for a total of 1 month.
--- NOTE | 2022-06-22 12:48 | XR_ITS ---
Final Report Patient: SALVATORE DOAN Facility:?[facility] Patient ID:?[id number] Site Patient ID:?[id number]. Site :?[id number] Study:?XRay Hip Right POST OP RIGHT HIP-06/22/2022 2:05:14 PM Ordering Physician:Cody Dumas Final Report: Indication: total right hip replacement, post op Technique: AP hip centered pelvis and lateral view right hip Findings/Impression: Hardware from a right total hip arthroplasty is in satisfactory position. Bone alignment is normal. No sign of acute fracture. Postop changes are within normal limits. Dictated by Chris Keita MD @ 06/22/2022 3:52:14 PM (Electronic Signature)
--- NOTE | 2022-06-22 13:28 | W.ANESCHARGE ---
Anesthesia Charges Start Date/Time Anesthesia Start Date: 06/22/22 Anesthesia Start Time: 11:11 Stop Date/Time Anesthesia Stop Date: 06/22/22 Anesthesia Stop Time: 13:24 Summary Emergency: No Extremes of Age: Over 71-CPT 85335
--- NOTE | 2022-06-22 13:30 | W.ANESCHARGE ---
Anesthesia Charges Start Date/Time Anesthesia Start Date: 06/22/22 Anesthesia Start Time: 11:11 Stop Date/Time Anesthesia Stop Date: 06/22/22 Anesthesia Stop Time: 13:24 Summary Emergency: No Extremes of Age: Over 71-CPT 89188
[2022-06-22] MEDS: LACTATED RINGERS 1000 ML 1,000 ML 75 ML IV (15:05)
--- NOTE | 2022-06-22 16:11 | PC.NURSE ---
PT ARRIVED AT 1400 VIA HER HOSPITAL BED FROM PACU S/P RTHAA W/DR. JAMES. PLEASE SEE INITIAL ASSESSMENT FROM PACU AND FREQUENT POST OP VS. LOW BP ON ARRIVAL TO FLOOR, IMPROVED W/IN 30 MINUTES. PT DENIES PAIN, ALERT & ORIENTED. KNEE HIGH AMPARO HOSE AND PLEXIPULSES ON. BED ALARM ENGAGED AND KNEE GATCH LOCKED OUT PER PROTOCOL. SHORTLY BEFORE 3 PM PT ABLE TO FEEL AND MOVE HER TOES S/P SPINAL BLOCK. LR @ 75CC/HR TO PATENT IV LEFT WRIST #20 GAUGE. RN ORDERED BROTH FOR PATIENT WHO HAS TOLERATED ICE CHIPS W/O N/V. ACTIVE ICE TO C/D/I MEPILEX DRESSING ON RIGHT ANTERIOR HIP. 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 REPORT TO KALLI HUBER FOR EVENING SHIFT, PT NOW STATES HER HIP INCISIONAL PAIN IS 3-4 OUT OF 10. ADAT.
[2022-06-22] MEDS: hydrOXYzine pamoate 25 MG CAPSULE PO (17:26)
[2022-06-22] MEDS: 0.9 % SODIUM CHLORIDE 500 ML 500 ML IV (18:22)
--- NOTE | 2022-06-22 19:42 | P.IMCN_ITS ---
Date of Consult Patient: Coleen Patient Consult date: 06/22/22 Requesting Physician: Orthopedics Primary Care Provider: Darleen Dacosta, Consult Narrative Reason for consult: post op management of polycythemia vera, HTN, hyperlipidemia Narrative: Dolly Chau is a 82 year old woman with end-stage right coxarthrosis who presents for elective right total hip arthroplasty today. This is undertaken successfully under spinal anesthesia without any complications. Estimated blood loss is 400 mL. Review of Systems Status of ROS: Reports: 10 or more systems reviewed and unremarkable except as noted in History and below Narrative: Has been in her usual state of health lately. Lives at home with her . is said to have cognitive impairment but she is able to help him at this juncture. Awoke this morning feeling well, turned her head and had the onset of vertigo. Has had vertigo since including now as I am visiting with her. She states she often will have this sense of vertigo if she is dehydrated. Acknowledges that she has had decreased oral intake in preparation for today's elective procedure. Denies chest heaviness, pressure, tightness, or pain. Denies syncope or near- syncope. Denies nausea or vomiting. Denies dyspnea at rest, paroxysmal nocturnal dyspnea, or orthopnea. Denies chest fluttering or palpitations. Bowel and bladder habits are satisfactory. Denies any focal motor neurologic deficits. No recent trauma, injury, or travel. Denies recent illness. Denies fevers, rigors, diaphoresis. Denies blood loss of any sort except for the surgical blood loss as specified above. Taking her polycythemia medications. Has not had phlebotomy recently. 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 Neck problem Osteoarthritis of hip Osteoarthritis of right hip Osteoarthritis of right knee Osteoporosis Pelvic floor dysfunction in female Polycythemia vera Surgical History Bone spur History of hysterectomy Hx of breast biopsy S/P arthroscopic partial lateral meniscectomy (11/12/21) Weakness of pelvic floor Family History Family/Other Breast cancer Colorectal cancer Sister Ovarian cancer Father Prostate cancer Paternal Grandmother Diabetes Mother CHF (congestive heart failure) Stroke Family/Other Parkinson disease Alcohol dependence Social History Narrative: Marital Status: 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[employer] Alcohol Use: No Recreational Drug Use: No Smoking Status: Never smoker Do you use any of these nicotine containing products: None Second hand tobacco smoke exposure: No How often do you have a drink containing alcohol: never How often do you have six or more drinks on one occasion: Never AUDIT-C Alcohol total score: 0 Non-prescribed substance use: denies use Caffeine: No Are you using contraception or practicing any form of control: No service: No Meds Home Medications and Allergies Home Medications Medication Instructions Recorded Confirmed Type ascorbic acid (vitamin C) 1,000 mg 1,000 mg PO DAILY 11/19/21 06/22/22 History tablet aspirin 81 mg tablet,delayed 81 mg PO DAILY 11/19/21 06/22/22 History release clopidogrel 75 mg tablet 75 mg PO DAILY 11/19/21 06/22/22 History hydroxyurea 500 mg capsule 500 mg PO BID 11/19/21 06/22/22 History simvastatin 20 mg tablet 20 mg PO HS 11/19/21 06/22/22 History cholecalciferol (vitamin D3) 25 50 mcg PO DAILY 11/21/21 06/22/22 History mcg (1,000 unit) capsule vitamin E (dl, acetate) 450 mg 450 mg PO DAILY 11/21/21 06/22/22 History (1,000 unit) capsule hydrochlorothiazide 12.5 mg tablet 12.5 mg PO DAILY 06/08/22 06/22/22 History acetaminophen 500 mg tablet 1,000 mg PO Q6H PRN 06/18/22 06/22/22 History tramadol 50 mg tablet 50 mg PO Q6H PRN 06/18/22 06/22/22 History Allergies Allergy/AdvReac Type Severity Reaction Status Date / Time alendronate sodium Allergy Severe severe Verified 06/22/22 10:15 aches bee venom protein (honey bee) Allergy Severe Swelling Verified 06/22/22 10:15 of Lip/Tongue/Throat Exam Narrative: Exam Narrative: Appears comfortable Royer in her hospital bed with head of bed elevated about 15?. Alert and oriented to self, place, time, situation. Friendly, cooperative, articulate. Mood and affect are congruent. No spontaneous nystagmus. Vision and hearing are grossly normal. Buccal mucosa is moist. Dentition in fair repair. Neck is supple. Midline trachea. Normal thyroid. No JVD, hepatojugular reflux, or carotid bruits. Lungs are clear to auscultation without wheezing, rhonchi, or rales. Heart tones with regular rhythm, normal S1-S2, without murmur, gallop, or rub. Abdomen with active bowel sounds, soft, nontender. Already moving all 4 extremities. No focal motor neurologic deficits. Const: Vital Signs, click to edit/add: Vital Signs - 24 hr 06/22/22 10:31 06/22/22 11:00 06/22/22 11:05 Temperature 98.2 F Pulse Rate 80 80 79 Pulse Rate [Right Pulse Oximeter] Respiratory Rate 18 18 18 Blood Pressure 145/61 H 133/70 117/66 Blood Pressure [Ri ght Arm] Pulse Oximetry 99 98 100 Oxygen Delivery Me thod Room Air Nasal Cannula Nasal Cannula Oxygen Flow Rate 2 2 06/22/22 13:20 06/22/22 13:25 06/22/22 13:30 Temperature 97.7 F Pulse Rate 64 70 71 Pulse Rate [Right Pulse Oximeter] Respiratory Rate 9 L 12 11 L Blood Pressure 88/50 L 82/38 L 72/48 L Blood Pressure [Ri ght Arm] Pulse Oximetry 97 98 98 Oxygen Delivery Me thod Room Air Oxygen Flow Rate 06/22/22 13:35 06/22/22 13:40 06/22/22 13:45 Temperature Pulse Rate 66 77 73 Pulse Rate [Right Pulse Oximeter] Respiratory Rate 12 12 16 Blood Pressure 113/60 78/45 L 94/50 L Blood Pressure [Ri ght Arm] Pulse Oximetry 98 99 100 Oxygen Delivery Me thod Oxygen Flow Rate 06/22/22 13:51 06/22/22 14:02 06/22/22 14:07 Temperature 97.1 F L 97.9 F 97.9 F Pulse Rate 69 75 Pulse Rate [Right Pulse Oximeter] Respiratory Rate 16 16 16 Blood Pressure 94/56 L Blood Pressure [Ri ght Arm] 80/44 L 80/61 L Pulse Oximetry 94 95 Oxygen Delivery Me thod Room Air Room Air Oxygen Flow Rate 06/22/22 14:15 06/22/22 14:30 06/22/22 14:00 Temperature Pulse Rate Pulse Rate [Right Pulse Oximeter] 74 68 64 Respiratory Rate 16 16 16 Blood Pressure Blood Pressure [Ri ght Arm] 95/52 L 96/58 L 104/56 L Pulse Oximetry 96 96 97 Oxygen Delivery Me thod Room Air Room Air Room Air Oxygen Flow Rate 06/22/22 14:45 06/22/22 15:00 06/22/22 15:30 Temperature 97.7 F Pulse Rate Pulse Rate [Right Pulse Oximeter] 64 68 78 Respiratory Rate 16 16 16 Blood Pressure Blood Pressure [Ri ght Arm] 104/56 L 102/79 109/68 Pulse Oximetry 97 95 96 Oxygen Delivery Me thod Room Air Room Air Room Air Oxygen Flow Rate 06/22/22 14:00 06/22/22 17:00 06/22/22 18:00 Temperature Pulse Rate Pulse Rate [Right Pulse Oximeter] 76 66 70 Respiratory Rate 16 16 16 Blood Pressure Blood Pressure [Ri ght Arm] 128/77 144/69 H 147/80 H Pulse Oximetry 95 96 98 Oxygen Delivery Me thod Room Air Room Air Room Air Oxygen Flow Rate Documenting provider has reviewed patient's vital signs: yes Assessment and Plan Assessment and plan (1) Osteoarthritis of right hip: Problem comment: severe Status: Acute (2) S/P total right hip arthroplasty: Status: Acute (3) Polycythemia vera: Status: Acute (4) Chronic vertigo: Status: Acute (5) Essential hypertension: Status: Acute (6) History of urinary retention: Status: Acute Plan 1. Reviewed impression with patient 2. Reviewed her medications. May resume her supportive medications. 3. Add meclizine as needed for vertigo to her medication regimen. 4. Bolus of normal saline to help with her dehydration postoperatively. 5. Agree with perioperative prophylactic antibiotic use. 6. Agree with 5 day regimen of rivaroxaban followed by resumption of use of her aspirin and clopidogrel for venous thromboembolism prophylaxis. 7. Will follow with Orthopedic surgery while they deemed that that is necessary for the patient to remain in the hospital. 8. I have completed the hospitalist's portion of the discharge orders. 9. Patient agreeable with above stated plans and recommendations.
[2022-06-22] MEDS: HYDROXYUREA 500 MG CAPSULE PO (22:03)
[2022-06-22] MEDS: SENNOSIDES 1 TAB TABLET 2 TAB PO (22:03)
[2022-06-22] MEDS: OXYCODONE 5 MG TABLET PO (22:19)
[2022-06-23] MEDS: CEFAZOLIN 2 GM in 0.9 % SODIUM CHLORIDE Mini-bag 100 ML IVPB ×2 (01:33→08:38)
[2022-06-23 01:35] VITALS: BP 111/57; PULSE 61; RESP 18; TEMP 36.6; O2SAT 95
[2022-06-23] MEDS: OXYCODONE 5 MG TABLET PO ×2 (04:50→10:54)
[2022-06-23] MEDS: ACETAMINOPHEN 500 MG TABLET 1000 MG PO ×2 (04:50→10:40)
--- NOTE | 2022-06-23 05:36 | PC.NURSE ---
[id number]: Patient pleasant and cooperative. Pain controlled with scheduled Tylenol and PRN Oxy x2. A1/walker/GB, tolerates well. CMS intact. Active ice to op site. Dressing to R. hip C/D/I. Denies N/V. Eating and voiding. Passing gas (per patient).
[2022-06-23 07:09] LABS: Basophils Absolute Auto 0.01 K/uL (0.00-0.30); Basophils Percent Auto 0.1 % (0.0-3.0); Hematocrit 30.9 % (33.0-51.0); Hemoglobin* 10.1 gm/dL (12.0-16.0); Immature Granulocytes Abs Auto 0.04 K/uL (0.00-0.30); Immature Granulocytes Pct Auto 0.5 %; Lymphocytes Percent Auto 9.8 % (20-44); Mean Corpuscular HGB Conc 33 gm/dL (32-36); Mean Corpuscular Hemoglobin 39 pg (26-34); Mean Corpuscular Volume 119 fL (80-100); Neutrophils Percent Auto 82.6 % (42.0-72.0); Platelet Count* 304 K/uL (140-440); RDW Coefficient of Variation % 14.7 % (11.5-15.5); Red Blood Count 2.59 m/uL (4.00-5.20); White Blood Count* 8.43 K/uL (4.50-11.00)
[2022-06-23 07:11] LABS: Slide Review Reflex Yes
[2022-06-23 07:20] LABS: Sodium* 134 mmol/L (135-149)
[2022-06-23 07:21] LABS: Potassium* 4.8 mmol/L (3.6-5.1)
[2022-06-23 07:23] LABS: Creatinine* 0.8 mg/dL (0.5-1.5); Est. Creatinine Clearance* 33.29; Estimated Glomerular Filt Rate 74 ml/min
[2022-06-23 07:24] LABS: Blood Urea Nitrogen* 31 mg/dL (7-30)
[2022-06-23 07:34] LABS: Slide Review Acceptable Review (Acceptable)
[2022-06-23] MEDS: RIVAROXABAN 10 MG TABLET PO (08:38)
[2022-06-23] MEDS: SENNOSIDES 1 TAB TABLET 2 TAB PO (08:38)
[2022-06-23] MEDS: HYDROXYUREA 500 MG CAPSULE PO (08:43)
[2022-06-23 08:45] VITALS: BP 124/48; PULSE 66; RESP 16; RESP 18; TEMP 36.6; O2SAT 97
--- NOTE | 2022-06-23 12:05 | PM.ORPN ---
Subjective Subjective Date Seen: 06/23/22 Principal diagnosis: Status postop day 1, right total hip arthroplasty - anterior approach Interval history: Patient reports doing well. No acute events over night. Pain managed with scheduled /PRN medications and ice. DVT prophylaxis rivaroxaban, bilateral knee high Faisal stockings, and SCDs. Denies fevers, chills, aches, N/V, CP, SOB/DOWNEY, tachycardia, or lightheadedness. She comments that she always has mildly tender calves bilaterally, nothing new. Ortho Exam Narrative Exam Narrative: -Patient appears comfortable in recliner; no apparent acute distress -Alert and oriented times 3 -Operative mildly hip swollen; soft tissues supple; no obvious erythema. Warmth appropriate -Surgical dressing clean, dry, intact; no obvious drainage, no erythematous streaking peripheral to the bandage -Bilateral calves soft and supple; mildly tender bilaterally; no significant swelling, edema, erythema, discoloration, warmth, or palpable cords -2+ DP/PT pulses, intact dermatomes and myotomes distally (5/5 strength). No numbness about the lateral femoral cutaneous nerve distribution. Const Vital Signs, click to edit/add: Vital Signs - 24 hr 06/22/22 13:20 06/22/22 13:25 06/22/22 13:30 Temperature 97.7 F Pulse Rate 64 70 71 Pulse Rate [Right Pulse Oximeter] Respiratory Rate 9 L 12 11 L Blood Pressure 88/50 L 82/38 L 72/48 L Blood Pressure [Right Arm] Pulse Oximetry 97 98 98 Oxygen Delivery Method Room Air 06/22/22 13:35 06/22/22 13:40 06/22/22 13:45 Temperature Pulse Rate 66 77 73 Pulse Rate [Right Pulse Oximeter] Respiratory Rate 12 12 16 Blood Pressure 113/60 78/45 L 94/50 L Blood Pressure [Right Arm] Pulse Oximetry 98 99 100 Oxygen Delivery Method 06/22/22 13:51 06/22/22 14:02 06/22/22 14:07 Temperature 97.1 F L 97.9 F 97.9 F Pulse Rate 69 75 Pulse Rate [Right Pulse Oximeter] Respiratory Rate 16 16 16 Blood Pressure 94/56 L Blood Pressure [Right Arm] 80/44 L 80/61 L Pulse Oximetry 94 95 Oxygen Delivery Method Room Air Room Air 06/22/22 14:15 06/22/22 14:30 06/22/22 14:00 Temperature Pulse Rate Pulse Rate [Right Pulse Oximeter] 74 68 64 Respiratory Rate 16 16 16 Blood Pressure Blood Pressure [Right Arm] 95/52 L 96/58 L 104/56 L Pulse Oximetry 96 96 97 Oxygen Delivery Method Room Air Room Air Room Air 06/22/22 14:45 06/22/22 15:00 06/22/22 15:30 Temperature 97.7 F Pulse Rate Pulse Rate [Right Pulse Oximeter] 64 68 78 Respiratory Rate 16 16 16 Blood Pressure Blood Pressure [Right Arm] 104/56 L 102/79 109/68 Pulse Oximetry 97 95 96 Oxygen Delivery Method Room Air Room Air Room Air 06/22/22 14:00 06/22/22 17:00 06/22/22 18:00 Temperature Pulse Rate Pulse Rate [Right Pulse Oximeter] 76 66 70 Respiratory Rate 16 16 16 Blood Pressure Blood Pressure [Right Arm] 128/77 144/69 H 147/80 H Pulse Oximetry 95 96 98 Oxygen Delivery Method Room Air Room Air Room Air 06/22/22 22:19 06/22/22 19:00 06/22/22 20:00 Temperature 97.5 F L 97.8 F 97.8 F Pulse Rate Pulse Rate [Right Pulse Oximeter] 84 66 88 Respiratory Rate 18 20 20 Blood Pressure Blood Pressure [Right Arm] 100/52 L 129/58 L 120/83 Pulse Oximetry 95 91 92 Oxygen Delivery Method Room Air Room Air Room Air 06/23/22 01:35 06/23/22 08:45 06/23/22 08:45 Temperature 97.8 F 97.8 F Pulse Rate Pulse Rate [Right Pulse Oximeter] 61 66 66 Respiratory Rate 18 18 16 Blood Pressure Blood Pressure [Right Arm] 111/57 L 124/48 L Pulse Oximetry 95 97 Oxygen Delivery Method Room Air Room Air Assessment and Plan Assessment and plan (1) Osteoarthritis of right hip: Problem details: severe Status: Resolved (2) S/P total right hip arthroplasty: Problem details: ADE-AA (06/22/2022, Dr. Patrick) Status: Acute (3) Polycythemia vera: Problem details: Clopidogrel daily Status: Acute (4) Chronic vertigo: Status: Acute (5) Essential hypertension: Status: Acute (6) History of urinary retention: Status: Acute Plan - Complete 23 hour perioperative antibiotics. - PT/OT consult for education and assistance. - Social work consult for discharge planning - Prescribed analgesics as needed - DVT prophylaxis: Rivaroxaban, bilateral knee high Faisal Hose stockings and SCDs - Anticipation is for discharge to home with spouse today 06/23/2022 if the patient remains medically stable, pain is controlled, and they are safe with mobilization.
--- NOTE | 2022-06-23 12:07 | PM.DS1 ---
DS: Providers Provider Date Seen: 06/23/22 Date of admission: Med/Surg Recovery 06/22/2022 Primary care physician: Darleen Dacosta DO Consults: 06/22/22 13:59 Consult to Occupational Therapy [CONS] Routine Comment: Reason(s) for OT Consult:: ADLs Prior to Discharge Any Restrictions?:: No Restrictions Comment: Consult to Physical Therapy [CONS] Routine Comment: Ambulate in the [place] today Reason(s) for PT Consult:: Evaluate and Treat Any Restrictions?:: No Restrictions Comment: Nursing Activity Consult to Physician [CONS] Routine Comment: Consulting Provider: Hospitalists Has provider been notified: No Consult to Java Application Developer [CONS] Routine Comment: Reason for Consult:: Discharge Planning Needs Attending Physician on discharge: Piter Patrick MD Date of Discharge: 06/23/22 DS: Diagnosis Discharge Diagnosis (1) S/P total right hip arthroplasty: Status: Acute Problem details: ADE-AA (06/22/2022, Dr. Patrick) DS: Summary Hospital Course Hospital Course: The patient has a history of right hip osteoarthritis, primary, severe. After appropriate preoperative evaluation, the patient underwent right total hip arthroplasty. Postoperatively given anticoagulation for deep vein thrombosis prophylaxis - rivaroxaban. With her history of polycythemia vera, she will have 5 days of Xarelto 10 mg daily, general return to her normal dosing of clopidogrel as well as a baby aspirin daily. She will continue this dual antiplatelet therapy indefinitely, as advised by her PCP. The patient progressed to PT/OT and were felt ready and prepared for discharge to home with appropriate pain medication and anticoagulation medications. Status at Discharge Functional status at discharge: uses cane/walker Overall status at discharge: patient is progressing back to baseline Time Spent with Patient Time attestation: Total time spent providing and/or coordinating discharge services: Time spent: Greater than 30 minutes Exam Const: Vital Signs, click to edit/add: Vital Signs - 24 hr 06/22/22 13:20 06/22/22 13:25 06/22/22 13:30 Temperature 97.7 F Pulse Rate 64 70 71 Pulse Rate [Right Pulse Oximeter] Respiratory Rate 9 L 12 11 L Blood Pressure 88/50 L 82/38 L 72/48 L Blood Pressure [Ri ght Arm] Pulse Oximetry 97 98 98 Oxygen Delivery Me thod Room Air 06/22/22 13:35 06/22/22 13:40 06/22/22 13:45 Temperature Pulse Rate 66 77 73 Pulse Rate [Right Pulse Oximeter] Respiratory Rate 12 12 16 Blood Pressure 113/60 78/45 L 94/50 L Blood Pressure [Ri ght Arm] Pulse Oximetry 98 99 100 Oxygen Delivery Me thod 06/22/22 13:51 06/22/22 14:02 06/22/22 14:07 Temperature 97.1 F L 97.9 F 97.9 F Pulse Rate 69 75 Pulse Rate [Right Pulse Oximeter] Respiratory Rate 16 16 16 Blood Pressure 94/56 L Blood Pressure [Ri ght Arm] 80/44 L 80/61 L Pulse Oximetry 94 95 Oxygen Delivery Me thod Room Air Room Air 06/22/22 14:15 06/22/22 14:30 06/22/22 14:00 Temperature Pulse Rate Pulse Rate [Right Pulse Oximeter] 74 68 64 Respiratory Rate 16 16 16 Blood Pressure Blood Pressure [Ri ght Arm] 95/52 L 96/58 L 104/56 L Pulse Oximetry 96 96 97 Oxygen Delivery Me thod Room Air Room Air Room Air 06/22/22 14:45 06/22/22 15:00 06/22/22 15:30 Temperature 97.7 F Pulse Rate Pulse Rate [Right Pulse Oximeter] 64 68 78 Respiratory Rate 16 16 16 Blood Pressure Blood Pressure [Ri ght Arm] 104/56 L 102/79 109/68 Pulse Oximetry 97 95 96 Oxygen Delivery Me thod Room Air Room Air Room Air 06/22/22 14:00 06/22/22 17:00 06/22/22 18:00 Temperature Pulse Rate Pulse Rate [Right Pulse Oximeter] 76 66 70 Respiratory Rate 16 16 16 Blood Pressure Blood Pressure [Ri ght Arm] 128/77 144/69 H 147/80 H Pulse Oximetry 95 96 98 Oxygen Delivery Me thod Room Air Room Air Room Air 06/22/22 22:19 06/22/22 19:00 06/22/22 20:00 Temperature 97.5 F L 97.8 F 97.8 F Pulse Rate Pulse Rate [Right Pulse Oximeter] 84 66 88 Respiratory Rate 18 20 20 Blood Pressure Blood Pressure [Ri ght Arm] 100/52 L 129/58 L 120/83 Pulse Oximetry 95 91 92 Oxygen Delivery Me thod Room Air Room Air Room Air 06/23/22 01:35 06/23/22 08:45 06/23/22 08:45 Temperature 97.8 F 97.8 F Pulse Rate Pulse Rate [Right Pulse Oximeter] 61 66 66 Respiratory Rate 18 18 16 Blood Pressure Blood Pressure [Ri ght Arm] 111/57 L 124/48 L Pulse Oximetry 95 97 Oxygen Delivery Me thod Room Air Room Air DS: Data Data Completed and Pending Labs on day of discharge: Labs from last 24 hours 06/23/22 06/23/22 06:36 06:36 WBC 8.43 RBC 2.59 L Hgb 10.1 L Hct 30.9 L MCV 119 H MCH 39 H MCHC 33 RDW Coeff of Boy 14.7 Plt Count 304 Neut % (Auto) 82.6 H Lymph % (Auto) 9.8 L Nicholas % (Auto) 7.0 Eos % (Auto) 0.0 Baso % (Auto) 0.1 Neut # (Auto) 7.00 Lymph # (Auto) 0.80 L Nicholas # (Auto) 0.60 Eos # (Auto) 0.00 Baso # (Auto) 0.01 Diff Slide Review Acceptable Review Sodium 134 L Potassium 4.8 BUN 31 H Creatinine 0.8 Estimated Creat Clear 33.29 Estimated GFR 74 Discharge Plan Discharge Disposition: Home, Self-Care Discharging Surgeon: Piter Patrick Follow-Up Appointment: 1 week PO with KRISTIAN Prescriptions: New sennosides-docusate sodium [Senna-S] 8.6-50 mg tablet 1 - 4 tab-cap PO BID PRN (Reason: constipation) Qty: 60 0RF Rx Instructions: Hold medication if experiencing loose stools. oxycodone 5 mg tablet 2.5 - 5 mg PO Q4-6H MDD 6 PRN (Reason: pain) Qty: 42 0RF Rx Instructions: Take as needed for postop pain: 2.5mg mild pain, 5mg moderate-severe pain; wean as tolerated. rivaroxaban 10 mg tablet 10 mg PO DAILY Qty: 4 0RF Rx Instructions: Medication for deep vein clot prevention post surgery. Complete this medication before starting Aspirin. Continued simvastatin 20 mg tablet 20 mg PO HS hydroxyurea 500 mg capsule 500 mg PO BID Hold Instructions: Resume on 03/23/22. Due to low blood counts, hold hydroxyurea and resume on 23 March 2022. ascorbic acid (vitamin C) 1,000 mg tablet 1,000 mg PO DAILY cholecalciferol (vitamin D3) 25 mcg (1,000 unit) capsule 50 mcg PO DAILY vitamin E (dl, acetate) 450 mg (1,000 unit) capsule 450 mg PO DAILY hydrochlorothiazide 12.5 mg tablet 12.5 mg PO DAILY acetaminophen 500 mg tablet 1,000 mg PO Q6H PRN loperamide 2 mg Capsule 2 mg PO QID PRN7 Days Qty: 20 0RF Held aspirin 81 mg tablet,delayed release (DR/EC) 81 mg PO DAILY Hold Instructions: Resume on 06/28/22. clopidogrel 75 mg tablet 75 mg PO DAILY Hold Instructions: Resume on 06/28/22. Take 5 days of Xarelto postop. After this medication completion, you may restart clopidogrel. Discontinued tramadol 50 mg tablet 50 mg PO Q6H PRN No Action (DME) Walker- 2 Wheels Misc See Rx Instructions .Route Qty: 1 0RF Rx Instructions: As directed Activity Level: Activity as Tolerated, Weight Bearing as Tolerated, Use Cane and Use Walker Activity Detail: Wound: ?Do not remove original dressing; we will remove this at first postop visit in 1 week. Only remove dressing if integrity is in question. ?No immersing wound in water; showering okay; light scrub with your hand and body soap, rinse, dab dry ?Sutures are under the skin, will dissolve; allow surgical glue to come off naturally; do not scrub the wound or apply ointments/lotions ?Call our office with any redness that streaks, excessive drainage from the wound, or wound gapping. Ice/Elevate: ?Ice as needed for swelling and discomfort (cryocuff or ice pack); elevate frequently above the heart AMPARO socks: ?Wear for 1 month, remove for 1 hour 3 times per day ?These are frustrating to take on/off, but are important for blood clot prevention for 1 month after surgery Blood Clot Prevention (DVT): ?Medication: Rivaroxaban, and transition back to clopidogrel (Plavix) daily once completed rivaroxaban Driving: ?Do not drive while taking narcotic pain medication ?Anticipate 4-6 weeks no driving if operative leg is driving leg Dental: ?No elective dental work for 6 months post-op. If there is an urgent/emergent dental need, contact our office for an antibiotic prescription. Smoking/Alcohol: ?Do not smoke; do no drink alcohol especially when taking postoperative oral narcotic medication Seek Care from you Primary Care Provider if you experience the following issues in the postoperative phase and beyond: ?Bacterial infections such as: pneumonia, bacterial skin infection (cellulitis), UTI, high fever, chills unrelated to the operative body part - call your primary care physician urgently for treatment in hopes to protect your health and the metal implant. Referrals: ?PT, OT per patient preference - evaluate treat total hip arthroplasty protocol (gait training, ROM, ADLs) Follow up: ?Ortho surgeon follow-up in 6 weeks; repeat radiographs AP pelvis, cross-table lateral operative hip ?PA-C visit in 1 week *If there are any acute concerns regarding your surgery, please call our orthopedic clinic ([phone]) Discharge Diet: Regular Patient Instructions: Oxycodone, Rapid Release (By mouth), Rivaroxaban (By mouth), Senna (By mouth), Surgical Site Infections (DC), Anterior Hip Replacement (DC) Follow-up: Darleen Dacosta DO [Primary Care Provider] - Galo Bonds PA-C [Physician Ground Control Approach Technician] - 07/02/22 9:30 am (At the [facility] Call if you have any questions.) Discharge Orders: Discharge Order (Routine); Ordered 06/23/22 Ordered By: Galo Bonds Consulting provider completed their portion of the discharge: Yes
== END 2022-06-23 11:57 | disposition home or self-care (01) ==
LOC: OR 09:54 → MEDSURG 09:57
PROVIDERS: PCP Family Medicine; Visit Provider Orthopaedic Surgery Sports Medicine
PROC: (CPT 27130; principal; 2022-06-22 12:15)
DX: M16.11 Unilateral primary osteoarthritis, right hip (principal); M25.551 Pain in right hip; G89.18 Other acute postprocedural pain; R42 Dizziness and giddiness; D45 Polycythemia vera; I10 Essential (primary) hypertension; E78.5 Hyperlipidemia, unspecified
CPT/HCPCS: 27130; 01214; 36415; 64450; 73501; 76000; 76942; 82565; 84132; 84295; 84520; 85025; 97116; 97162; 97165; 97535; 99100; A9270; C1713; C1776; J0690; J1100; J2250; J2405; J2704; J3010; J3490; J7120; S0176

== ENCOUNTER 2022-09-21 16:20 | Emergency (ER) | payer OTHER, SELFPAY ==
[2022-09-21 16:30] VITALS: BP 174/89; PULSE 88; RESP 18; TEMP 35.8; O2SAT 97; BMI 30.2
--- NOTE | 2022-09-21 17:30 | ED.DIZZY ---
HPI - Dizziness General Time Seen by Provider: 17:31 Date Seen: 09/21/22 Chief Complaint: Dizziness/Vertigo Stated Complaint: Vertigo, dehydration, neck pain Time Seen by Provider: 09/21/22 17:31 Source: patient, RN notes reviewed and old records reviewed Mode of arrival: ambulatory Limitations: no limitations History of Present Illness HPI Narrative: Lory is a very pleasant 82-year-old female with a history of hypertension, polycythemia vera, CVA who comes to the emergency room by private vehicle for dizziness. On Wednesday lory states that she simply turned over in bed and had the sudden onset of spinning sensation. It continued and she has been trying to control it by holding her head still which does improve the symptoms. She notes that turning her head to the right and bending down will definitely increased her symptoms. Otherwise the dizziness will cause her to vomit. Today she went to the chiropractor as she has some back issues and the chiropractor did some work on her neck with a vibrating machine. She did not crack her neck. But lory notes that her vertigo became much worse after that treatment. She had persistent vomiting and had to be driven here to the hospital. During this time she denies any recent fever cough cold or chills. She denies chest pain or abdominal pain. She has not had fever. She notes no numbness or tingling of the extremities. Any movement in bed increases her dizziness and she states ?the room is moving?. Related Data Home Medications Medication Instructions Recorded Confirmed ascorbic acid (vitamin C) 1,000 mg 1,000 mg PO DAILY 11/19/21 08/07/22 tablet aspirin 81 mg tablet,delayed 81 mg PO DAILY 11/19/21 08/07/22 release clopidogrel 75 mg tablet 75 mg PO DAILY 11/19/21 08/07/22 hydroxyurea 500 mg capsule 500 mg PO BID 11/19/21 08/07/22 simvastatin 20 mg tablet 20 mg PO HS 11/19/21 08/07/22 cholecalciferol (vitamin D3) 25 50 mcg PO DAILY 11/21/21 08/07/22 mcg (1,000 unit) capsule vitamin E (dl, acetate) 450 mg 450 mg PO DAILY 11/21/21 08/07/22 (1,000 unit) capsule hydrochlorothiazide 12.5 mg tablet 12.5 mg PO DAILY 06/08/22 08/07/22 acetaminophen 500 mg tablet 1,000 mg PO Q6H PRN 06/18/22 08/07/22 vitamin B complex (B 1 tab PO QDAY 07/02/22 08/07/22 Complex-Vitamin B12 tablet) Previous Rx's Medication Instructions Recorded Walker- 2 Wheels #1 ea 12/25/21 loperamide 2 mg capsule 2 mg PO QID PRN 7 days #20 caps 03/18/22 amoxicillin 500 mg capsule 2,000 mg PO ONCE #4 caps 08/07/22 meclizine 12.5 mg tablet 12.5 mg PO TID-QID PRN #60 tabs 09/21/22 Allergies Allergy/AdvReac Type Severity Reaction Status Date / Time alendronate sodium Allergy Severe severe Verified 09/21/22 19:17 aches bee venom protein (honey bee) Allergy Severe Swelling Verified 09/21/22 19:17 of Lip/Tongue/Throat Review of Systems Status of ROS: Reports: 10 or more systems reviewed and unremarkable except as noted in History and below Const: Denies: fever, chills or fatigue Eyes: Denies: blurry vision ENMT: Reports: vertigo; Denies: throat pain, neck pain, throat swelling, difficulty swallowing or hoarseness Cardio: Denies: chest pain, palpitations, swelling of feet/ankles or shortness of breath with exertion Resp: Denies: shortness of breath, cough or wheezing GI: Reports: nausea and vomiting; Denies: abdominal pain, diarrhea or difficulty swallowing : Denies: painful urination Musculo: Denies: neck pain Integ/Breast: Denies: rash Neuro: Reports: vertigo; Denies: headache Endo: Denies: fatigue Allergy/Immuno: Denies: throat swelling or wheezing [facility] Medical History Acute left flank pain ?R10.9 - Unspecified abdominal pain (ICD-10) Arthritis ?M19.90 - Unspecified osteoarthritis, unspecified site (ICD-10) Asthma ?J45.909 - Unspecified asthma, uncomplicated (ICD-10) Back problem ?M53.9 - Dorsopathy, unspecified (ICD-10) Cancer ?C80.1 - Malignant (primary) neoplasm, unspecified (ICD-10) Colitis ?K52.9 - Noninfective gastroenteritis and colitis, unspecified (ICD-10) Elevated cholesterol ?E78.00 - Pure hypercholesterolemia, unspecified (ICD-10) High blood pressure ?I10 - Essential (primary) hypertension (ICD-10) History of cerebrovascular accident ?Z86.73 - Personal history of transient ischemic attack (TIA), and cerebral infarction without residual deficits (ICD-10) IBS (irritable bowel syndrome) ?K58.9 - Irritable bowel syndrome without diarrhea (ICD-10) 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 - Genetic susceptibility to other disease (ICD-10) Kidney problem ?N28.9 - Disorder of kidney and ureter, unspecified (ICD-10) Macrocytosis without anemia ?D75.89 - Other specified diseases of blood and blood-forming organs (ICD-10) Neck problem ?R68.89 - Other general symptoms and signs (ICD-10) Osteoarthritis of hip ?M16.9 - Osteoarthritis of hip, unspecified (ICD-10) Osteoarthritis of right hip ?M16.11 - Unilateral primary osteoarthritis, right hip (ICD-10) Osteoarthritis of right knee ?M17.11 - Unilateral primary osteoarthritis, right knee (ICD-10) Osteoporosis ?M81.0 - Age-related osteoporosis without current pathological fracture (ICD-10) Pelvic floor dysfunction in female ?M62.89 - Other specified disorders of muscle (ICD-10) Polycythemia vera ?D45 - Polycythemia vera (ICD-10) Surgical History Bone spur ?M77.9 - Enthesopathy, unspecified (ICD-10) History of hysterectomy ?Z90.710 - Acquired absence of both cervix and uterus (ICD-10) Hx of breast biopsy ?Z98.890 - Other specified postprocedural states (ICD-10) S/P arthroscopic partial lateral meniscectomy (11/12/21) ?Z98.890 - Other specified postprocedural states (ICD-10) Weakness of pelvic floor ?N81.89 - Other female genital prolapse (ICD-10) Family History Family/Other Breast cancer Colorectal cancer Sister Ovarian cancer Father Prostate cancer Paternal Grandmother Diabetes Mother CHF (congestive heart failure) Stroke Family/Other Parkinson disease Alcohol dependence Social History Narrative: Marital Status: 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 She is preferring to keep her eyes closed sitting in a semi recumbent position at approximately 60?. When she opens her eyes as long as she stays still she can focus on me. With movement of her head to the right she immediately becomes nauseated. Her right eye is reactive. 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 No scleral injection. Face is symmetrical with eyebrow raise and smile. Speech is normal and mentation is normal in as well. Neck is supple without lymphadenopathy. Heart with regular rate and rhythm and lungs are clear to auscultation. Abdomen soft nontender. Upper extremity strength and motor is intact. Lower extremity strength and motor is intact. Const: Vital Signs, click to edit/add: Vital Signs - 24 hr 09/21/22 16:30 Temperature 96.4 F L Pulse Rate [Pulse Oximeter] 88 Respiratory Rate 18 Blood Pressure [Ri ght Upper Arm] 174/89 H Pulse Oximetry 97 Oxygen Delivery Me thod Room Air Documenting provider has reviewed patient's vital signs: yes Course Course Hospital Course: Differential diagnosis includes but is not limited to acute stroke, benign positional vertigo, cardiac arrhythmia. Most likely this represents benign positional vertigo but given the neck treatment today as well as history of polycythemia vera a/hypercoagulable state, we will go forward with CT and CTA. Treatment will be 1 L of normal saline and Ativan 0.25 mg IV. Laboratory values also pending. Reevaluation(s) Reevaluation #1: Patient noted to be feeling better after Ativan. CT/CTA reassuring. Patient was able to ambulate with a walker and would like to go home. Vital Signs Vital signs: Initial Vital Signs Temperature 96.4 F L 09/21/22 16:30 Temperature Source Temporal Artery Scan 09/21/22 16:30 Pulse Rate 88 09/21/22 16:30 Pulse Rhythm Regular 09/21/22 16:30 Respiratory Rate 18 09/21/22 16:30 Blood Pressure 174/89 H 09/21/22 16:30 Blood Pressure Mean 117 H 09/21/22 16:30 Blood Pressure Position Sitting 09/21/22 16:30 Pulse Oximetry 97 09/21/22 16:30 Oxygen Delivery Method Room Air 09/21/22 16:30 Vital Signs Temperature 96.4 F L 09/21/22 16:30 Pulse Rate 88 09/21/22 16:30 Respiratory Rate 18 09/21/22 16:30 Blood Pressure 174/89 H 09/21/22 16:30 Pulse Oximetry 97 09/21/22 16:30 Oxygen Delivery Method Room Air 09/21/22 16:30 Temperature 96.4 F L 09/21/22 16:30 Pulse Rate 88 09/21/22 16:30 Respiratory Rate 18 09/21/22 16:30 Blood Pressure 174/89 H 09/21/22 16:30 Pulse Oximetry 97 09/21/22 16:30 Oxygen Delivery Method Room Air 09/21/22 16:30 MDM - Dizziness MDM Narrative Medical decision making narrative: 1. Benign positional vertigo-patient has symptoms consistent with vertigo. Given her history of polycythemia vera as well as previous stroke patient did undergo CT/CTA and this was reassuring and negative. Patient noted to have no other neurological defects. Significant nystagmus noted with turning of the head. Patient noted to be feeling better after Ativan 0.25 mg IV. She was able to ambulate with the assistance of the walker. She wants to go home at this time. I would ask that she use the walker at all times at home as she is a fall risk. Will give her some meclizine to be taken home tonight. Additional prescription will be sent to the pharmacy. She is to follow-up if she is not improving. Return to the ED for worsening symptoms. 2. Disposition-home at this time. Medical Records Attestation: I reviewed the patient's medical records. Lab Data Attestation: I reviewed the patient's lab results. Labs: Lab Results 09/21/22 09/21/22 Range/Units 18:00 19:25 WBC 5.32 (4.50-11.00) K/uL RBC 3.42 L (4.00-5.20) m/uL Hgb 12.9 (12.0-16.0) gm/dL Hct 40.9 (33.0-51.0) % MCV 120 H (80-100) fL MCH 38 H (26-34) pg MCHC 32 (32-36) gm/dL RDW Coeff of Boy 13.9 (11.5-15.5) % Plt Count 382 (140-440) K/uL Neut % (Auto) 74.2 H (42.0-72.0) % Lymph % (Auto) 16.0 L (20-44) % Hendricks % (Auto) 5.8 (0.0-11.0) % Eos % (Auto) 2.1 (0.0-7.0) % Baso % (Auto) 0.6 (0.0-3.0) % Neut # (Auto) 3.90 (1.7-7.0) K/uL Lymph # (Auto) 0.90 (0.90-2.90) K/uL Hendricks # (Auto) 0.30 (0.00-0.90) K/UL Eos # (Auto) 0.11 (0.00-0.50) K/uL Baso # (Auto) 0.03 (0.00-0.30) K/uL Sodium 137 (135-149) mmol/L Potassium 4.3 (3.6-5.1) mmol/L Chloride 98 (96-114) mmol/L Carbon Dioxide 32 (20-32) mmol/L BUN 20 (7-30) mg/dL Creatinine 0.6 (0.5-1.5) mg/dL Estimated Creat Clear 33.29 Estimated GFR 90 ml/min Glucose 104 (60-115) mg/dL Calcium 10.1 (8.4-10.6) mg/dL Total Bilirubin 0.5 (0.1-1.5) mg/dL AST 24 (12-35) U/L ALT 16 (4-35) U/L Alkaline Phosphatase 118 (40-150) U/L C-Reactive Protein 0.6 (0.5-1.0) mg/dL Total Protein 8.9 H (6.0-8.3) g/dL Albumin 4.6 (3.3-5.0) g/dL Urine Color Yellow (Yellow) Urine Appearance Slightly Cloudy A (Clear) Urine pH 7.0 (5.0-8.5) Ur Specific [place] 1.015 (1.000-1.030) Urine Protein Negative (Negative) Urine Glucose (UA) Negative (Negative) Urine Ketones Trace A (Negative) Urine Blood Negative (Negative) Urine Nitrite Negative (Negative) Urine Bilirubin Negative (Negative) Urine Urobilinogen 0.2 (0.2-1.0) Ur Leukocyte Esterase Negative (Negative) Urine RBC 0-2 (0-2) Urine WBC 0-2 (0-5) Ur Squamous Epith Cells None (None-Few) Urine Bacteria None (None) Imaging Data CT scan - head: Attestation: I have reviewed the pertinent imaging results. My impression: No acute bleed. Radiologist's impression: CSF spaces: Within normal limits for age.? Brain parenchyma: Mild age-appropriate generalized cerebral volume loss. Patchy white matter low attenuation changes, nonspecific but likely reflecting mild chronic small vessel ischemic disease. No sign of mass, hemorrhage, or midline shift.? Skull base and calvarium: The visualized paranasal sinuses and mastoid air cells demonstrate no acute or significant findings. Bilateral lens extraction. No skull fractures. IMPRESSION: No acute intracranial abnormality. Neck angio: Attestation: I have reviewed the pertinent imaging results. ECG Data Attestation: I personally reviewed and interpreted this ECG as follows: ECG interpretation date: 09/21/22 Interpretation: By my read EKG shows sinus rhythm at a rate of 82. No acute ST or T-wave changes are noted. Discharge Plan Discharge Clinical Impression: Benign paroxysmal positional vertigo, Vomiting Patient Disposition: Home, Self-Care Condition: Improved Additional Instructions: Meclizine is a medication which can help dizziness. It does also cause some mild sedation so please do not use Benadryl or alcohol if using meclizine. You should also not be driving. Use walker at home if you are ambulating to prevent fall. Return to the emergency room for worsening symptoms or onset of new symptoms. Prescriptions: New meclizine 12.5 mg tablet 12.5 mg PO TID-QID PRNQty: 60 0RF Rx Instructions: May use 1-2 tabs as needed every 6-8 hours for dizziness. No Action simvastatin 20 mg tablet 20 mg PO HS aspirin 81 mg tablet,delayed release (DR/EC) 81 mg PO DAILY Hold Instructions: Resume on 06/28/22. clopidogrel 75 mg tablet 75 mg PO DAILY Hold Instructions: Resume on 06/28/22. Take 5 days of Xarelto postop. After this medication completion, you may restart clopidogrel. hydroxyurea 500 mg capsule 500 mg PO BID Hold Instructions: Resume on 03/23/22. Due to low blood counts, hold hydroxyurea and resume on 23 March 2022. ascorbic acid (vitamin C) 1,000 mg tablet 1,000 mg PO DAILY cholecalciferol (vitamin D3) 25 mcg (1,000 unit) capsule 50 mcg PO DAILY vitamin E (dl, acetate) 450 mg (1,000 unit) capsule 450 mg PO DAILY (DME) Walker- 2 Wheels Misc See Rx Instructions .Route Qty: 1 0RF Rx Instructions: As directed vitamin B complex [B Complex-Vitamin B12] Tablet 1 tab PO QDAY amoxicillin 500 mg capsule 2,000 mg PO ONCE Qty: 4 3RF Rx Instructions: Take all 4 capsules, 1 hour prior to dental appointment hydrochlorothiazide 12.5 mg tablet 12.5 mg PO DAILY acetaminophen 500 mg tablet 1,000 mg PO Q6H PRN loperamide 2 mg Capsule 2 mg PO QID PRN7 Days Qty: 20 0RF Follow Up/Referrals: Darleen Dacosta DO [Primary Care Provider] - Stand Alone Forms: [facility] Info Instructions
--- NOTE | 2022-09-21 17:41 | CRLHL7_ITS ---
For Patients: As a result of the Century Cures Act, medical imaging exams and procedure reports are released immediately into your electronic medical record. You may view this report before your referring provider. If you have questions, please contact your health care provider. INDICATION: Acute stroke, vertigo. TECHNIQUE: CTA head with contrast bolus tracking, 3D angiographic rendering using maximum intensity projection (MIP) and images permanently archived. FINDINGS: There is normal opacification of the intracranial vasculature. There is no large vessel occlusion. No aneurysm is identified. IMPRESSION: Unremarkable head CTA. Please note that all CT scans at this facility use dose modulation, iterative reconstruction, and/or weight-based dosing when appropriate to reduce radiation dose to as low as reasonably achievable. Dictated by Messi Jacob MD @ 09/22/2022 6:55:57 AM (Electronically Signed)
--- NOTE | 2022-09-21 17:41 | CRLHL7_ITS ---
For Patients: As a result of the Century Cures Act, medical imaging exams and procedure reports are released immediately into your electronic medical record. You may view this report before your referring provider. If you have questions, please contact your health care provider. INDICATION: Vertigo. TECHNIQUE: Head CT without contrast. COMPARISON: None. FINDINGS: CSF spaces: Within normal limits for age. Brain parenchyma: Mild age-appropriate generalized cerebral volume loss. Patchy white matter low attenuation changes, nonspecific but likely reflecting mild chronic small vessel ischemic disease. No sign of mass, hemorrhage, or midline shift. Skull base and calvarium: The visualized paranasal sinuses and mastoid air cells demonstrate no acute or significant findings. Bilateral lens extraction. No skull fractures. IMPRESSION: No acute intracranial abnormality. Please note that all CT scans at this facility use dose modulation, iterative reconstruction, and/or weight-based dosing when appropriate to reduce radiation dose to as low as reasonably achievable. Dictated by Gilberto Mancera MD @ 09/21/2022 7:00:51 PM (Electronically Signed)
--- NOTE | 2022-09-21 17:41 | CRLHL7_ITS ---
For Patients: As a result of the Century Cures Act, medical imaging exams and procedure reports are released immediately into your electronic medical record. You may view this report before your referring provider. If you have questions, please contact your health care provider. INDICATION: Acute stroke, vertigo. TECHNIQUE: CTA neck with contrast bolus tracking, 3D angiographic rendering using maximum intensity projection (MIP) and images permanently archived. FINDINGS: There is minor carotid atherosclerosis. There is no significant carotid artery stenosis or dissection. There is no significant vertebral artery stenosis or dissection. The soft tissues of the neck are within normal limits. Degenerative changes are noted in the cervical spine. IMPRESSION: No significant carotid or vertebral artery stenosis or dissection. Please note that all CT scans at this facility use dose modulation, iterative reconstruction, and/or weight-based dosing when appropriate to reduce radiation dose to as low as reasonably achievable. Dictated by Messi Jacob MD @ 09/22/2022 6:57:42 AM (Electronically Signed)
[2022-09-21 18:31] LABS: Basophils Absolute Auto 0.03 K/uL (0.00-0.30); Basophils Percent Auto 0.6 % (0.0-3.0); Eosinophils Absolute Auto 0.11 K/uL (0.00-0.50); Eosinophils Percent Auto 2.1 % (0.0-7.0); Hematocrit 40.9 % (33.0-51.0); Hemoglobin* 12.9 gm/dL (12.0-16.0); Immature Granulocytes Abs Auto 0.07 K/uL (0.00-0.30); Immature Granulocytes Pct Auto 1.3 %; Mean Corpuscular HGB Conc 32 gm/dL (32-36); Mean Corpuscular Hemoglobin 38 pg (26-34); Mean Corpuscular Volume 120 fL (80-100); Monocytes Percent Auto 5.8 % (0.0-11.0); Neutrophils Percent Auto 74.2 % (42.0-72.0); Platelet Count* 382 K/uL (140-440); RDW Coefficient of Variation % 13.9 % (11.5-15.5); Red Blood Count 3.42 m/uL (4.00-5.20); White Blood Count* 5.32 K/uL (4.50-11.00)
[2022-09-21 18:33] LABS: Albumin* 4.6 g/dL (3.3-5.0); Chloride* 98 mmol/L (96-114); Potassium* 4.3 mmol/L (3.6-5.1); Sodium* 137 mmol/L (135-149)
[2022-09-21 18:35] LABS: Creatinine* 0.6 mg/dL (0.5-1.5); Est. Creatinine Clearance* 33.29; Estimated Glomerular Filt Rate 90 ml/min
[2022-09-21 18:36] LABS: Alanine Aminotransferase* 16 U/L (4-35); Alkaline Phosphatase* 118 U/L (40-150); Aspartate Amino Transferase* 24 U/L (12-35); Bilirubin Total* 0.5 mg/dL (0.1-1.5); Blood Urea Nitrogen* 20 mg/dL (7-30); Carbon Dioxide* 32 mmol/L (20-32); Glucose* 104 mg/dL (60-115); Slide Review Reflex No; Total Protein* 8.9 g/dL (6.0-8.3)
[2022-09-21 18:37] LABS: Calcium* 10.1 mg/dL (8.4-10.6)
[2022-09-21 18:39] LABS: C Reactive Protein* 0.6 mg/dL (0.5-1.0)
[2022-09-21 19:39] LABS: Appearance Urine Slightly Cloudy (Clear); Bilirubin Urine Negative (Negative); Blood Urine Negative (Negative); Color Urine Yellow (Yellow); Glucose Urine Negative (Negative); Ketones Urine Trace (Negative); Leukocyte Esterase Urine Negative (Negative); Nitrite Urine Negative (Negative); Protein Urine Negative (Negative); Specific Gravity Urine 1.015 (1.000-1.030); Urobilinogen Urine 0.2 (0.2-1.0)
[2022-09-21] MEDS: 0.9 % SODIUM CHLORIDE 1000 ml 1,000 ML IV (19:41)
[2022-09-21] MEDS: LORazepam 2 MG/ML inj 0.25 MG IVP (19:41)
[2022-09-21 19:52] LABS: RBC Urine 0-2 (0-2); WBC Urine 0-2 (0-5)
--- NOTE | 2022-09-21 20:58 | ED.NURSE ---
Patient ambulated with walker around the emergency room. Tolerated well. No episodes of dizziness noted.
== END 2022-09-21 21:24 | disposition home or self-care (01) ==
PROVIDERS: Emergency Provider Family Medicine; PCP Family Medicine
DX: H81.10 Benign paroxysmal vertigo, unspecified ear (principal)
CPT/HCPCS: 36415; 70450; 70496; 70498; 80053; 81001; 85025; 86140; 93005; 96374; 99284; 99285; J2060; J7030; Q9967

== ENCOUNTER 2022-10-23 13:00 | Outpatient (RCR) | payer OTHER, SELFPAY ==
--- NOTE | 2022-06-17 12:09 | PT.OPEX ---
PT [facility] Outpatient Eval INTIAL EVAL MEDICARE-SIGNATURE NEEDED PT [facility] Outpatient Eval Start: 06/17/22 07:34 Freq: Status: Active Protocol: Document 06/17/22 10:57 CONSTANCE (Rec: 06/17/22 12:04 CONSTANCE [id number]) E-signed By Gerard Doherty DPT Physical Therapy Outpatient Evaluation Insurance Information Insurance Name Medicare B,[employer] Medical Diagnosis R hip OA, pre op ADE Treating Diagnosis muscle weakness, gait abnormality , limited ROM Referring MD Piter back Subjective Subjective Dolly comes into clinic today for a pre-op visit for a R ADE on 06/22/22. She has been dealing with more R knee pain than R hip pain recently. Had a knee surgery back in march along with cortisone that she does not think has helped as much. Pt states her daughter will bringing her to the hospital while another one of her daughter will be taking her home and staying with her for 2-3 days. States her son may also be staying with her an additional 2 days. At home she has a bathroom and bedroom on the main floor and laundry and a shower in the basement. Pain Comments R knee pain > R hip pain mainly in bed 08/31 today Date of Surgery (If applicable) 06/22/22 Objective Other/Pertinent Objective mobility: ambulates with partial step through-to pattern with decreased pace using fww Hip flexion: R4- /5 L4+ /5 Hip abduction: R3+ /5 L 4/5 Hip extension: R 4-/5 L 4/5 Knee flexion: R 4/5 L4+ /5 Knee extension: R4- /5 L4 /5 Assessment Assessment/Impression Pt is a 82 yr old female who presents with concerns of R hip OA. Patient also has notable objective findings including limited ROM, impaired balance, decreased strength also likely contributing to the problem. Patient is a good candidate for skilled therapy to target deficits described above. Skilled PT intervention is necessary for use of therapeutic exercise manual therapy, neuromuscular re- education, gait training, and therapeutic activity. Functional impairments include difficulty with: walking, standing, stairs, implementation specialist . See appropriate sections of PT eval for complete list of goals and POC . D/C plan and criteria is for pt to achieve the goals as listed below or until max rehab potential is met. Pt was agreeable with plan of care and goals established Plan of Care Rehabilitation Potential Good Physical Therapy Goals DAE GOALS STG (within 5 weeks) 1) Pt will ambulate at least 10-15 minutes with FWW minimal antalgic gait for improved community mobility LTG: (within 10 weeks) 1) Pt will be indep with HEP for intermediate designer management of pain/symptoms 2) Pt will improve hip AROM at least 0-90* for improved sit to stand transfers 3) Patient will ascend/descend at least 12 steps using single rail and reciprocal pattern to improve ease of mobility at home/community Coordination/Communication With Referral Source Treatment Plan/Direct Interventions Gait Training,Joint Mobilization,Manual Therapy, Neuromuscular Re-ed,Self-Care/ Home Management,Therapeutic Activities,Therapeutic Exercises Frequency/Duration 1-2 a week for 8-12 weeks Patient Will Be Discharged From Therapy Completion of LTG(s), Independently Progressing Evaluation Billing Complexity Low Certification Information Initial Certification Date 06/17/22 Ending Certification Date 09/10/22 Physician Comment/Change : Physician NPI Number #
--- NOTE | 2022-10-23 15:16 | PT.OPDNX ---
PT [place] Outpatient Daily Note PT [facility] Outpatient Daily Note Start: 06/17/22 12:05 Freq: Status: Active Protocol: Document 10/23/22 15:01 REY (Rec: 10/23/22 15:15 REY [id number]) E-signed By RITA JcT, MS PT OP Daily Progress Note Visit Information Note Type Daily Note Visit Number [id number] Insurance Authorized Visits - Physician Authorized Visits Eval and treat Insurance Information Recert Due Date 09/15/22 Insurance Name Medicare B,[employer] Medical Diagnosis R hip OA, pre op ADE Treating Diagnosis muscle weakness, gait abnormality , limited ROM Referring MD Piter back Subjective Subjective Pt returns to PT after an episode of severe LS pain after helping lift her off the ground after a fall. Severe pain immediately with lifting which decreased her activity levels for several weeks. Chiropractic treatment has been successful. Finds herself limping and hoping for advice/ exercises to improve jaswinder to walking. Walking 15 min 2-3x per day in her house with and without 4WW. Pain Comments 0-3/10 ITB Objective Other/Pertinent Objective Gait: without SPC decreased velocity with minimal R Trendelenburg SLS: R 5 sec mild swat, L 2 sec mod sway Hip ROM WFL all directions Hip flexion: R 4+/5, L 5/5 Hip abduction: R 4-/5, L 4/5 Hip extension: R 4-/5 L 4+/5 Knee flexion: R 4/5 L 4+/5 Knee extension: B 5/5 Functional Test Performed & Score LEFS: 38 Patient Instructed in Risks/Benefits Yes Therapeutic Exercise Therapeutic Exercise Minutes (minutes) 42 Therapeutic Exercise: To Restore Progressed NuStep L4 Functional Status resistance x 7 min for endurance and ROM. standing hip abd and ext 10 x 3 B with light finger tip support emphasizing importance SLS at counter light finger tip support Standing heel raises at counter 16 x 3 Progressed to standing march at counter 8 x 3 B with fatigue Progressed to squats at counter to 60 deg 8 x 3 Progressed to walking march without AD next to wall 20' x 5, 3 sets Progressed to side stepping Treatment Minutes Timed Code Treatment Minutes 42 Total Treatment Time 42 Billing Units Therapeutic Exercise Units 3 Assessment/Impression Assessment/Impression Pt displays notable improvement in R LE strength and quality of gait following episode of LS pain. Continues to display gait compensations and importance of static and dynamic balance, and glute strengthening exercises reviewed with pt. Good response to progression of balance, standing exercises, and NuStep with improved quality of gait following. Instructed pt to focus on amb with arm swing and increased velocity. Pt will benefit from continued skilled PT services , progressing as able. Plan of Care Physical Therapy Goals Short-term goals to be completed in 4 weeks: 1. Pt will report improved quality of sleep waking <2x per night due to R hip pain. MET 2. Pt will display improved R LE strength as evidenced by performing >10 SLR of good quality to improve quality of gait. Progressing 3. Pt will be able to sit for >15 minutes with minimal R hip pain to safely drive to medical appointments. MET Long-term goals to be completed in 24 weeks: 1. Pt will be independent and compliant with HEP. Progressing 2. Pt will be able to walk for >8 minutes with no elevation in R hip pain to improve cardiovascular fitness. Progressing 3. Pt will display improved R hip flex, ABD and ext strength of >/= 4+/5 to improve quality of gait. Progressing 4. Pt will report >75% improvement in LEFS questionnaire to significantly improve tolerance to functional activities. Progressing Daily Plan of Care Continue per POC Daily Plan of Care Comments Progress R LE flexibility, ROM , strength, gait training and balance Recertification Information Initial Certification Date 06/17/22 Recertification Start Date 09/15/22 Recertification Due Date 12/14/22 Reasons to Continue Skilled Therapy See assessment Rehabilitation Potential Excellent Continued Plan of Care and Interventions TE, MT and NM re-ed 1x per week for 2-4 additional visits , decreasing visit frequency as able. Provider Signature Shows Agreement With POC & Medical Necessity Physician Comment/Change Comment or Changes Physician NPI Number #
== END 2023-02-20 23:59 | disposition home or self-care (01) ==
PROVIDERS: PCP Family Medicine; Visit Provider Orthopaedic Surgery Sports Medicine
DX: M16.11 Unilateral primary osteoarthritis, right hip (principal); M70.62 Trochanteric bursitis, left hip; M67.813 Other specified disorders of tendon, right shoulder; M67.854 Other specified disorders of tendon, left hip; M75.21 Bicipital tendinitis, right shoulder; M46.1 Sacroiliitis, not elsewhere classified; M25.511 Pain in right shoulder; M62.81 Muscle weakness (generalized); Z96.641 Presence of right artificial hip joint; Z51.89 Encounter for other specified aftercare
CPT/HCPCS: 97110; 97116; 97140; 97161; 97164

== ENCOUNTER 2023-03-22 09:00 | Outpatient (RCR) | payer OTHER, SELFPAY ==
--- NOTE | 2022-12-18 15:09 | PT.OPEX ---
PT [place] Outpatient Eval PT [facility] Outpatient Eval Start: 12/18/22 09:57 Freq: Status: Active Protocol: Document 12/18/22 09:57 ELANA (Rec: 12/18/22 10:06 ELANA [id number]) E-signed By Jennifer Caballero DPT Physical Therapy Outpatient Evaluation Insurance Information Recert Due Date 03/18/23 Insurance Name Medicare B,[employer] Medical Diagnosis L greater trochanteric bursitis L hip abd tendinitis L SIJ OA Treating Diagnosis L hip/buttock pain, L SI pain, L groin pain, L ITB tightness /pain, core/hip/glut/LE weakness, limping antalgic gait, limited tolerance for extended standing/walking, slow/guarded with transitional movements/transfers. Subjective Subjective Patient reports hx of chronic LB/SI issues with chiropractic treatments as needed with flare ups. States she has been going to chiropractor for the last couple of months with minimal improvement. She had f/u with regarding her R ADE and discussed her current L hip pain, L SI pain, and L wrap around groin pain. She is scheduled for an injection to SI on Wednesday with [facility] in [place]. States she hasn't continued with her HEP after R ADE earlier this year. MD did not think she needed her L hip replaced and referred to PT. States that she uses SPC at times when going out. She has a FWW and 4ww and reports using the 4ww at time in the house. She comes to PT today without an AD. States her main reason for using an AD now is due to L hip/SI pain. She denies any recent falls. States she has been taking prednisone for about the last month or so for other medical reasons. Using tylenol as needed for pain. Icing on occasion. Pain range 2-8/10. Date of Last Physician Visit 12/11/22 Current Work Status Retired Precautions Treatment Precautions/Contraindications R ADE, osteoporosis, OA, HTN Assessment Assessment/Impression Patient is an 82 year old female with L hip/buttock pain , L SI pain, L groin pain, L ITB tightness/pain, core/hip/ glut/LE weakness, limping antalgic gait, limited tolerance for extended standing/walking, slow/guarded with transitional movements/ transfers. Pain range 2-8/10. Patient with hx of R ADE earlier this year and hx of chronic LB/SI pain. Pelvic/SI alignment assessed and equal this session. She is tight, tender, reactive with palpation L LB/SI, L buttock, L lateral hip, L ITB. Core/ hip/glut/LE weakness noted. Patient movements this session are slow, guarded, stiff. Gait is slow, limping, antalgic without an AD. She reports using a SPC or 4ww at times secondary to L hip/SI/ groin pain. Able to initiate some exercises this session, tolerated well. Patient would benefit from skilled PT for pain/sx management, improved core/hip/glut/LE strength, improved mobility/transfers/ transitional movements, improved gait, and establishment of HEP. Plan of Care Rehabilitation Potential Good Physical Therapy Goals 1. Decrease LB, L buttock/hip /groin pain to less than/equal to 3/10 with daily activities and with the progression of PT activities over the next 4-6 weeks. 2. Patient will be educated on posture/body mechanics and pain management strategies over the next 4-6 weeks for decreased stress on LB/SI/hips and decreased LB, SI, and hip pain . 3. Decrease L hip/groin pain/ sx by 50% or greater over the next 4-6 weeks for improved transitional movements, improved gait, and improved tolerance for extended sitting/standing/ walking. 4. Improve core/hip/glut strength over the next 10-12 weeks for improved posture, improved pelvic/SI stabilization, decreased stress on LB/SI/pelvis/hip, decreased LB/buttock/hip/groin pain, and improved transitional movements, improved gait, and improved tolerance for extended sitting/standing/ walking for daily activities. 5. Patient will be I with HEP within 12 weeks for progression toward above goals, ongoing self- management of pain/sx, ongoing self improvements in core/hip/glut strength, posture/body mechanics, and for improved tolerance for extended sitting /standing/walking activities. Coordination/Communication With Referral Source Treatment Plan/Direct Interventions Manual Therapy,Therapeutic Exercises Frequency/Duration 1x/week Patient Will Be Discharged From Therapy Completion of LTG(s),Skills Plateau,Independent w/HEP, Independently Progressing Evaluation Billing Untimed Code Treatment Minutes 25 Complexity Moderate Certification Information Initial Certification Date 12/18/22 Ending Certification Date 03/18/23 Provider Signature Shows Agreement With POC & Medical Necessity Physician Signature & Date Requested Please Sign/Date Here Physician Comment/Change : Physician NPI Number #
--- NOTE | 2023-01-27 17:16 | PT.OPEX ---
PT [place] Outpatient Eval PT [facility] Outpatient Eval Start: 12/18/22 09:57 Freq: Status: Active Protocol: Document 01/27/23 07:58 AMS (Rec: 01/27/23 17:12 AMS [id number]) E-signed By Ila Mitchell PT Physical Therapy Outpatient Evaluation Insurance Information Recert Due Date 04/22/23 Insurance Name [employer] Medical Diagnosis Tendonitis of long head of biceps brachii of right shoulder Tendinopathy of right rotator cuff Treating Diagnosis Right shoulder pain Muscle weakness Referring MD Galo Bonds Subjective Subjective Known patient to our clinic. Presents today with new problem of right shoulder pain , 3 day duration. No known one injury. She was working on physical therapy exercises for her left hip bursitis. Performing bridges. A day later, felt anterior shoulder pain especially. Difficult with motion of her shoulder. Aching discomfort down the entire right upper extremity. Oprth-pcae-pnjuftet. Pain has improved slightly over the last couple days. Treats with acetaminophen. Unable to take oral NSAIDs. No history of right shoulder issues. Pain wakes her from sleep at night. No radiating or burning pain down the right upper extremity. -Galo Bonds, 01/20/23 Pt, right-handed dominant, describes one to two week long history of right shoulder pain. She points to the anterior shoulder and sometimes posterior just behind clavicle and describes it as sore and achy. It happened suddenly one morning without any injury. Denies previous surgeries or injuries . She had a corticosteroid injection on the , which was helpful temporarily. Overall, it is improving. Functional limitations include sleeping on right shoulder, reaching, and lifting. No numbness, tingling, or neck pain. No other easing factors other than rest. She reports it is no longer waking her up at night, but sleeping on right side is difficult. She reports her left hip is improving. She has not done her hip exercises much this week, but plans on getting back into it this week. Of note, she states she threw out her back yesterday (she is not sure how, just started hurting yesterday), which has happened before, pointing to right PSIS area. This is sore with bending forward. She has been using single-point cane since this morning to help offload the back. Pain Comments 4 or 5/10 pain at best, 8 or 9 /10 at worst with touch Date of Last Physician Visit 01/20/23 Current Work Status Retired Preferred Name Pat Precautions Treatment Precautions/Contraindications R ADE in June, osteoporosis, OA, HTN, long- term use of Prednisone (1 year ), one working eye, skin cancer (nose) Weight Bearing Status Full Weight Bearing Objective Other/Pertinent Objective CERVICAL AROM Within normal limits, pain- free SHOULDER AROM Flexion: R 155* L 155 Abduction: R 170* L 170 Internal Rotation: R T8* L T8 External Rotation 90 deg abd: R 90 L 90 SHOULDER PROM Full, pain end range with flexion/abduction NECK/SHOULDER MMT (two-finger width): Shoulder flexion: R */5, strong but painful, L 5/5 Shoulder abduction: R */5, strong but painful, L 5/5 Shoulder External Rotation at 0 deg: R 4/5 L 5/5 Shoulder Internal Rotation at 0 deg: R 4/5 L 5/5 Elbow flexion: R 5/5 L 5/5 Elbow extension R 5/5 L 5/5 *pain in anterior shoulder SCAPULAR MECHANICS Within normal limits SPECIAL TESTS -Cervical distraction test: - Shoulder impingement -Liu Kamaljit Test: + right -Neers Test: - -Painful arc: + right Labral Tear -Biceps Load test: - -Francisco's test: + right AC Joint Crossover: + right Shear: - Rotator Cuff -Drop Arm Test: - -ER Lag: - -Belly Press: - Instability: -A/P load and shift: - JOINT MOBILITY/PALPATION Mild tenderness to palpation over bicipital groove and right upper trap just posterior to shoulder. Otherwise no other TTP over clavicle, AC joint, or surrounding musculature TX: Patient was educated on anatomy, physiology as it relates to current condition and HEP with use of handout/ [employer]. Patient verbalizes understanding and agrees with POC/goals Education: -Soreness rules with goal of symptoms returning to baseline within 24 hours and that evening Pt educated in the following exercises to improve range of motion, tissue tolerance, and/ or strength with verbal/ tactile cues as necessary: Access Code: [email or web address] URL: [email or web address]/ Date: 01/27/2023 Prepared by: Ila Mitchell Exercises - Shoulder Flexion Wall Slide with Towel - 1 x daily - 7 x weekly - 3 sets - 10 reps - Sidelying Shoulder Abduction with Dumbbell Palm forward - 1 x daily - 4 x weekly - 2 sets - 10 reps - 1-2 lbs weight - Wall Push Up - 1 x daily - 4 x weekly - 3 sets - 10 reps Assessment Assessment/Impression Pt is a 82 -year-old female who presents with concerns of acute right shoulder pain and moderate severity and irritability. Signs and symptoms are likely indicating / consistent with rotator cuff tendinopathy/potential labral involvement. On exam, patient also demonstrates notable objective findings including full shoulder AROM with pain, pain-free PROM except end range abd/flexion, positive painful arc with flexion/abd, pain with resisted flexion/abd, normal cervical exam, and decreased strength, leading to difficulties with sleeping on her right side, reaching, and lifting. Pt is also being treated concurrently for left hip pain, which is improving. She had a corticosteroid injection on 01/20 in lateral shoulder, which temporarily reduced symptoms. X-rays were done, which were reportedly negative for fracture. Patient is appropriate for skilled physical therapy services to address the above deficits. Pt was agreeable with plan of care and goals established. Primary Functional Limitations sleeping on her right side, reaching, and lifting Plan of Care Rehabilitation Potential Good Physical Therapy Goals In 2 sessions: Pt will demonstrate consistent HEP compliance to ensure progress in reaching established goals during course of care. In 4-6 sessions: Patient is able to sleep, including on shoulder, with waking 0-1 times per night Patient will demonstrate full and pain-free shoulder AROM for return to lifting and reaching without pain. Patient will report pain levels < 2/10 with all activity in order to improve functional mobility at home, work, and during functional leisure activities. Coordination/Communication With Referral Source Treatment Plan/Direct Interventions Joint Mobilization,Manual Therapy,Neuromuscular Re-ed, Self-Care/Home Management, Therapeutic Activities, Therapeutic Exercises Frequency/Duration 1x/week for 4-6 sessions Patient Will Be Discharged From Therapy Completion of LTG(s), Independent w/HEP, Independently Progressing Evaluation Billing Complexity Low Certification Information Initial Certification Date 01/27/23 Ending Certification Date 04/22/23 Provider Signature Shows Agreement With POC & Medical Necessity Physician Signature & Date Requested Please Sign/Date Here Physician Comment/Change : Physician NPI Number #
--- NOTE | 2023-03-22 12:55 | PT.OPDNX ---
PT [place] Outpatient Daily Note PT [facility] Outpatient Daily Note Start: 12/18/22 09:57 Freq: Status: Active Protocol: Document 03/22/23 07:45 AMS (Rec: 03/22/23 12:10 AMS [id number]) E-signed By Ila Mitchell, PT PT [facility] Daily Progress Note Visit Information Note Type Daily Note,Recert/Progress Note Visit Number [id number] Insurance Information Recert Due Date 03/18/23 Insurance Name Medicare B,[employer] Medical Diagnosis L greater trochanteric bursitis L hip abd tendinitis L SIJ OA Treating Diagnosis L hip/buttock pain, L SI pain, L groin pain, L ITB tightness /pain, core/hip/glut/LE weakness, limping antalgic gait, limited tolerance for extended standing/walking, slow/guarded with transitional movements/transfers. [ End ] Referring MD Galo Bonds Subjective Subjective Pt states her groin/low back only bother her in the morning /after periods of inactivity, which she thinks is due to the arthritis in her hip/SI joint . She does not have pain with walking, stairs, or other daily activities. Does not need her cane at all. Went to chiropractor several weeks ago , which helped her low back greatly. She would like to continue independently with her HEP. Pain Comments 0/10 Preferred Name Pat Precautions Treatment Precautions/Contraindications R ADE in June, osteoporosis, OA, HTN, long- term use of Prednisone (1 year ), one working eye s/p CVA, skin cancer (nose) Weight Bearing Status Full Weight Bearing Home Exercise Home Exercise Comments Access Code: [email or web address] URL: [email or web address] Date: 03/22/2023 Prepared by: Ila Mitchell Program Notes Pick 2-3 every other day.? Exercises - Squat with Chair Touch - 1 x daily - 4 x weekly - 2-3 sets - 10 reps - Supine Lower Trunk Rotation - 1 x daily - 7 x weekly - 2- 3 sets - 10 reps - Supine 90/90 Alternating Heel Touches with Posterior Pelvic Tilt - 1 x daily - 4 x weekly - 2-3 sets - 8 reps - Prone Hip Extension - 1 x daily - 4 x weekly - 2-3 sets - 8 reps - Hooklying Shoulder Flexion with Abdominal Bracing and [place] Ball- Elbows at 90 degrees - 1 x daily - 4 x weekly - 2-3 sets - 8 reps - Sidelying Hip Abduction - 1 x daily - 4 x weekly - 2-3 sets - 8 reps Objective Other/Pertinent Objective Gait assessment: Ambulates with heel-toe, normalized gait when cued, mildly decreased arm swing B, increased lateral trunk lean bilaterally BALANCE Single leg stance (not today): 1-2 seconds bilaterally FUNCTIONAL MOBILITY Double leg squat: WNL, to 90 deg, no pain 30-second STS: 13 LUMBAR ROM - all pain-free unless otherwise noted Flexion: 100% Extension: 100%, mild LBP Right Sidebendin% Left Sidebendin% Right rotation: WNL Left rotation: WNL HIP ROM Full and pain-free all motions LE MMT: Hip flexion: R 4/5 L 4/5 Hip extension: R 4+/5 L 4/5 Knee flexion: R 5/5 L 4/5 Knee extension: R 5/5 L 5/5 SPECIAL TEST Hip Labral/Intra-articular Pathology: -TOMY: - for pain -FADIR: - Functional Test Performed & Score LEFS: 33/80 or 41% at initial eval Patient Instructed in Risks/Benefits Yes Therapeutic Exercise Therapeutic Exercise Minutes (minutes) 25 Therapeutic Exercise: To Restore -Reassessment of objective Functional Status measures Education: -POC with review of goals and progress since start of PT -Expectations after d/c from PT and continued compliance to HEP Pt educated in the following exercises to improve range of motion, tissue tolerance, and/ or strength with verbal/ tactile cues as necessary: -NuStep x 5 min with arms -Prone hip extensions x 10 reps B -Supine posterior pelvic tilts with march x 10 reps B -Supine posterior pelvic tilt in 90-90 with heel touches x 10 reps B -Hooklying abdominal bracing with [place] ball 6 lbs 2 x 10 reps -Supine lower trunk rotations x 10 reps B -Reviewed and updated HEP; discussed performing shoulder exercises 3x/week and hip/low back 3x/week along with continuing her 20-30 min walks in her home daily. Would recommend choosing 2-3 exercises to perform every other day. Manual Therapy Techniques Manual Therapy Minutes (minutes) 5 Manual Therapy Techniques -Prone gentle PA mobilizations over L2-L5 for decreased pain Treatment Minutes Timed Code Treatment Minutes 30 Total Treatment Time 30 Billing Units Therapeutic Exercise Units 2 Assessment/Impression Assessment/Impression Pat demonstrates continued improvement in left hip/low back symptoms. Pain more localized to groin this visit and very low in severity; does not change with lumbar ROM or hip ROM. Due to nature of symptoms being worst in morning and with stiffness after periods of inactivity, likely related to known arthritis. Focused session on ongoing hip/abdominal strengthening and mobility without increased pain. Pt is appropriate to continue HEP independently at this time with all goals met. Will keep patient's chart open for 6 weeks in case of return, otherwise will discharge at that time. Plan of Care Physical Therapy Goals 1. Decrease LB, L buttock/hip /groin pain to less than/equal to 3/10 with daily activities and with the progression of PT activities over the next 4-6 weeks. MET 2. Decrease L hip/groin pain/ sx by 50% or greater over the next 4-6 weeks for improved transitional movements, improved gait, and improved tolerance for extended sitting/standing/ walking. MET 3. Improve core/hip/glut strength over the next 10-12 weeks for improved posture, improved pelvic/SI stabilization, decreased stress on LB/SI/pelvis/hip, decreased LB/buttock/hip/groin pain, and improved transitional movements, improved gait, and improved tolerance for extended sitting/standing/ walking for daily activities. MET 4. Patient will be I with HEP within 12 weeks for progression toward above goals, ongoing self- management of pain/sx, ongoing self improvements in core/hip/glut strength, posture/body mechanics, and for improved tolerance for extended sitting /standing/walking activities. MET [ End ] Daily Plan of Care Change POC; See Comments Daily Plan of Care Comments Continue with HEP independently Follow up as needed Hold chart for 6 weeks, otherwise discharge Recertification Information Initial Certification Date 12/18/22 Recertification Start Date 03/18/23 Recertification Due Date 06/15/23 Reasons to Continue Skilled Therapy Patient is a 82 year old female that presents with chronic low back pain/left hip pain.?Patient reports almost full improvement in low back and hip pain with skilled physical therapy services and as of today has met all her PT goals. Patient has shown improvement in physical therapy, demonstrating decreased pain, increased strength, and increased tolerance to activity and load .?Patient continues to present with intermittent left hip/ low back pain and decreased tolerance to activity.?Pt will continue her HEP independently and return on as needed basis if symptoms increase; will keep her chart open for 6 weeks. Pt is appropriate for ongoing PT services on as needed basis, but anticipate pt will progress well independently. Will discharge formally in 6 weeks if no return. Continued Plan of Care and Interventions Therapeutic exercise Manual therapy Therapeutic activity Neuromuscular Re-education Provider Signature Shows Agreement With POC & Medical Necessity
== END 2023-05-31 12:36 | disposition home or self-care (01) ==
PROVIDERS: PCP Family Medicine; Visit Provider Orthopaedic Surgery Sports Medicine
DX: M70.62 Trochanteric bursitis, left hip (principal); M76.892 Other specified enthesopathies of left lower limb, excluding foot; M46.1 Sacroiliitis, not elsewhere classified; M75.21 Bicipital tendinitis, right shoulder; M67.911 Unspecified disorder of synovium and tendon, right shoulder; M25.552 Pain in left hip; R10.30 Lower abdominal pain, unspecified; R53.1 Weakness; M79.18 Myalgia, other site; R26.89 Other abnormalities of gait and mobility; Z51.89 Encounter for other specified aftercare
CPT/HCPCS: 97110; 97140; 97161; 97162

== ENCOUNTER 2023-04-06 18:31 | Emergency (ER) | payer OTHER, SELFPAY ==
[2023-04-06] VITALS (11 sets, daily range): BP systolic 164–190; BP diastolic 93–122; PULSE 74–87; RESP 18; TEMP 36.1–36.6; O2SAT 94–97; BMI 32.1
--- NOTE | 2023-04-06 19:40 | ED_ITS ---
HPI - General Adult General Date Seen: 04/06/23 Chief complaint: Epistaxis/Nosebleed Stated complaint: nose bleed on blood thinners Time Seen by Provider: 04/06/23 19:12 History of Present Illness HPI narrative: Very pleasant 82-year-old female with a past medical history of previous stroke, coronary disease, on aspirin 81 mg and Plavix, also history of epistaxis, GERD, hypertension, osteoarthritis. She presents to the ER today with epistaxis. She is having slow bright red liquid using from her right nostril that is been occurring since about 1:00 a.m. this afternoon. She recalls that she had a scab in there and that she gently picked the scab when she started some bleeding. No bleeding from the knife nostril. No bleeding down the back of her oropharynx. She is not lightheaded or dizzy. No weakness. She recalls that in the past she had to come to the ER to get cauterized to control bleed like this. She indicates she tried to control the bleeding at home by applying ice pack to her nose and putting some Kleenex upper nostril. However would continue bleeding. She recalls that she did not put any direct pressure on her nose. Related Data Home Medications Medication Instructions Recorded Confirmed ascorbic acid (vitamin C) 1,000 mg 1,000 mg PO DAILY 11/19/21 01/19/23 tablet aspirin 81 mg tablet,delayed 81 mg PO DAILY 11/19/21 01/19/23 release clopidogrel 75 mg tablet 75 mg PO DAILY 11/19/21 01/19/23 hydroxyurea 500 mg capsule 500 mg PO BID 11/19/21 01/19/23 simvastatin 20 mg tablet 20 mg PO HS 11/19/21 01/19/23 cholecalciferol (vitamin D3) 25 50 mcg PO DAILY 11/21/21 01/19/23 mcg (1,000 unit) capsule vitamin E (dl, acetate) 450 mg 450 mg PO DAILY 11/21/21 01/19/23 (1,000 unit) capsule hydrochlorothiazide 12.5 mg tablet 12.5 mg PO DAILY 06/08/22 01/19/23 acetaminophen 500 mg tablet 1,000 mg PO Q6H PRN 06/18/22 01/19/23 vitamin B complex (B 1 tab PO QDAY 07/02/22 01/19/23 Complex-Vitamin B12 tablet) omeprazole 20 mg capsule,delayed 20 mg PO DAILY 12/11/22 01/19/23 release prednisone 10 mg tablet 20 mg PO DAILY 12/11/22 01/19/23 Previous Rx's Medication Instructions Recorded Walker- 2 Wheels #1 ea 12/25/21 loperamide 2 mg capsule 2 mg PO QID PRN 7 days #20 caps 03/18/22 amoxicillin 500 mg capsule 2,000 mg (4 x 500 mg) PO ONCE #4 08/07/22 caps meclizine 12.5 mg tablet 12.5 mg PO TID-QID PRN #60 tabs 09/21/22 cyclobenzaprine 7.5 mg tablet 7.5 mg PO QHS #30 tabs 03/26/23 cephalexin 500 mg capsule 500 mg PO TID #15 caps 04/06/23 Allergies Allergy/AdvReac Type Severity Reaction Status Date / Time alendronate sodium Allergy Severe severe Verified 01/19/23 09:43 aches bee venom protein (honey bee) Allergy Severe Swelling Verified 01/19/23 09:43 of Lip/Tongue/Throat [facility] Medical History History of urinary retention ?Z87.898 - Personal history of other specified conditions (ICD-10) Diarrhea ?R19.7 - Diarrhea, unspecified (ICD-10) Retention of urine ?R33.9 - Retention of urine, unspecified (ICD-10) Postoperative hemorrhage Nausea and vomiting ?R11.2 - Nausea with vomiting, unspecified (ICD-10) Left lower quadrant abdominal pain ?R10.32 - Left lower quadrant pain (ICD-10) Diverticulitis ?K57.92 - Diverticulitis of intestine, part unspecified, without perforation or abscess without bleeding (ICD-10) Dehydration ?E86.0 - Dehydration (ICD-10) Cerebrovascular disease ?I67.9 - Cerebrovascular disease, unspecified (ICD-10) Abdominal pain ?R10.9 - Unspecified abdominal pain (ICD-10) Osteoarthritis of hip ?M16.9 - Osteoarthritis of hip, unspecified (ICD-10) Pelvic floor dysfunction in female ?M62.89 - Other specified disorders of muscle (ICD-10) 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 - Genetic susceptibility to other disease (ICD-10) Macrocytosis without anemia ?D75.89 - Other specified diseases of blood and blood-forming organs (ICD-10) Colitis ?K52.9 - Noninfective gastroenteritis and colitis, unspecified (ICD-10) Osteoarthritis of right knee ?M17.11 - Unilateral primary osteoarthritis, right knee (ICD-10) Polycythemia vera ?D45 - Polycythemia vera (ICD-10) Osteoarthritis of right hip ?M16.11 - Unilateral primary osteoarthritis, right hip (ICD-10) Cancer ?C80.1 - Malignant (primary) neoplasm, unspecified (ICD-10) Arthritis ?M19.90 - Unspecified osteoarthritis, unspecified site (ICD-10) Neck problem ?R68.89 - Other general symptoms and signs (ICD-10) Back problem ?M53.9 - Dorsopathy, unspecified (ICD-10) Osteoporosis ?M81.0 - Age-related osteoporosis without current pathological fracture (ICD- 10) Kidney problem ?N28.9 - Disorder of kidney and ureter, unspecified (ICD-10) IBS (irritable bowel syndrome) ?K58.9 - Irritable bowel syndrome without diarrhea (ICD-10) Elevated cholesterol ?E78.00 - Pure hypercholesterolemia, unspecified (ICD-10) High blood pressure ?I10 - Essential (primary) hypertension (ICD-10) Asthma ?J45.909 - Unspecified asthma, uncomplicated (ICD-10) History of cerebrovascular accident ?Z86.73 - Personal history of transient ischemic attack (TIA), and cerebral infarction without residual deficits (ICD-10) Acute left flank pain ?R10.9 - Unspecified abdominal pain (ICD-10) Surgical History 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) ?Z96.641 - Presence of right artificial hip joint (ICD-10) S/P arthroscopic partial lateral meniscectomy (11/12/21) ?Z98.890 - Other specified postprocedural states (ICD-10) Weakness of pelvic floor ?N81.89 - Other female genital prolapse (ICD-10) Bone spur ?M77.9 - Enthesopathy, unspecified (ICD-10) History of hysterectomy ?Z90.710 - Acquired absence of both cervix and uterus (ICD-10) Hx of breast biopsy ?Z98.890 - Other specified postprocedural states (ICD-10) Family History Family/Other Breast cancer Colorectal cancer Sister Ovarian cancer Father Prostate cancer Paternal Grandmother Diabetes Mother CHF (congestive heart failure) Stroke Family/Other Parkinson disease Alcohol dependence Social History (Reviewed 12/11/22 @ 09:52 by Ivelisse Weber ~ [facility], [facility]) Narrative: Marital Status: Occupation: [employer] Alcohol Use: No Recreational Drug Use: No Smoking Status: Never smoker Do you use any of these nicotine containing products: None Second hand tobacco smoke exposure: No How often do you have a drink containing alcohol: never How often do you have six or more drinks on one occasion: Never AUDIT-C Alcohol total score: 0 Non-prescribed substance use: denies use Caffeine: No Are you using contraception or practicing any form of control: No service: No Exam Narrative: Exam Narrative: Constitutional: Appears well-developed and well-nourished. Alert. Conversant. Non toxic. HENT: Head: Atraumatic. Nose: External Nose normal. Left nares normal. No bleeding. No polyps. No definite septal deviation. Right naris. There is a small amount of dark red venous oozing. After reapply a pressure with a nasal clamp she still had slow venous oozing from the nares. Unable to see a site of bleeding because blood obscures my field of view. Applied Afrin. Recheck. Still oozing. Unable to visualize site due to a blood present in the nares. I had the patient express some clot but still not able to says see the site of bleeding. Applied 4 mL of 1% lidocaine with epi. Recheck. Still bleeding. Slow venous oozing out the front of her nostril.. No posterior or pharyngeal bleeding. Applied TXA, 5 mL topically soaked on a cotton ball. Recheck-. Still ongoing oozing. Recheck-at the patient expressed more clots. There was a clot inherent which we removed using forceps. Is able to visualize an apparent side of bleeding actually on the lateral wall the nose more than a cm in from the nares. Cauterized with silver Nitrate. Recheck-initially, hemostasis seemed to be achieved. However the patient had recurrent oozing. I packed the patient's nostril using of 4.5 cm rhino rocket soaked in sterile saline. I inflated with 4 mL of air. The airline transport pilot balloon was firm but not hard. Patient tolerated the inflation. No excessive pain. Able to breathe normally. Minimal dripping around the packing was initially appreciated. Patient ambulated around the ER without any increase in bleeding. Recheck-small amount of blood on the packing but no signs of active dripping. I t appears that hemostasis is finally achieved. Mouth/Throat: Oral mucosa is clear and moist. no trismus. Pharynx normal. Tonsils symmetric. No tonsillar enlargement, erythema, or exudate. Eyes: Conjunctivae normal. EOM normal. Pupils equal, round, and reactive to light. No scleral icterus. Neck: Normal range of motion. Neck supple. No tracheal deviation present. Cardiovascular: Normal rate, regular rhythm. No gallop. No friction rub. No murmur heard. Skin pink, warm, well perfused Pulmonary/Chest: Effort normal. No stridor. No respiratory distress. No wheezes. No rales. No rhonchi . Musculoskeletal: RUE: Normal range of motion. No tenderness. No deformity LUE: Normal range of motion. No tenderness. No deformity RLE: Normal range of motion. No edema. No tenderness. No deformity LLE: Normal range of motion. No edema. No tenderness. No deformity Neurological: Alert and oriented to person, place, and time. Normal strength. CN II-VII intact. No sensory deficit. GCS eye subscore is 4. GCS verbal subscore is 5. GCS motor subscore is 6. Normal coordination Skin: Skin is warm and dry. No rash noted. No pallor. Normal capillary refill. Psychiatric: Normal mood. Normal affect. Const: Vital Signs, click to edit/add: Vital Signs - 24 hr 04/06/23 18:42 04/06/23 19:25 04/06/23 20:43 Temperature 97.8 F Pulse Rate 87 80 Pulse Rate [Pulse Oximeter] 74 Respiratory Rate 18 Blood Pressure Blood Pressure [Ri ght Upper Arm] 190/97 H Pulse Oximetry 95 94 94 Oxygen Delivery Me thod Room Air 04/06/23 20:45 04/06/23 20:46 04/06/23 20:47 Temperature Pulse Rate 77 78 83 Pulse Rate [Pulse Oximeter] Respiratory Rate Blood Pressure 177/93 H Blood Pressure [Ri ght Upper Arm] Pulse Oximetry 97 96 96 Oxygen Delivery Me thod 04/06/23 21:00 04/06/23 21:01 04/06/23 21:31 Temperature Pulse Rate 75 78 84 Pulse Rate [Pulse Oximeter] Respiratory Rate Blood Pressure 164/122 H Blood Pressure [Ri ght Upper Arm] Pulse Oximetry 95 95 96 Oxygen Delivery Me thod 04/06/23 21:32 04/06/23 21:34 Temperature 97.0 F L Pulse Rate 77 81 Pulse Rate [Pulse Oximeter] Respiratory Rate Blood Pressure 168/95 H Blood Pressure [Ri ght Upper Arm] Pulse Oximetry 97 94 Oxygen Delivery Me thod Course Vital Signs Vital signs: Initial Vital Signs Temperature 97.8 F 04/06/23 18:42 Temperature Source Temporal Artery Scan 04/06/23 18:42 Pulse Rate 74 04/06/23 18:42 Pulse Rhythm Regular 04/06/23 18:42 Pulse Strength 0+ Absent 04/06/23 18:42 Respiratory Rate 18 04/06/23 18:42 Blood Pressure 190/97 H 04/06/23 18:42 Blood Pressure Mean 128 H 04/06/23 18:42 Blood Pressure Position Sitting 04/06/23 18:42 Pulse Oximetry 95 04/06/23 18:42 Oxygen Delivery Method Room Air 04/06/23 18:42 Vital Signs Temperature 97.8 F 04/06/23 18:42 Pulse Rate 74 04/06/23 18:42 Respiratory Rate 18 04/06/23 18:42 Blood Pressure 190/97 H 04/06/23 18:42 Pulse Oximetry 95 04/06/23 18:42 Oxygen Delivery Method Room Air 04/06/23 18:42 Temperature 97.0 F L 04/06/23 21:34 Pulse Rate 81 04/06/23 21:34 Respiratory Rate 18 04/06/23 18:42 Blood Pressure 168/95 H 04/06/23 21:34 Pulse Oximetry 94 04/06/23 21:34 Oxygen Delivery Method Room Air 04/06/23 18:42 Medications Administered Medications: Discontinued Medications Generic Name Dose Route Start Last Admin Trade Name Freq PRN Reason Stop Dose Admin Cephalexin HCl 500 mg 04/06/23 21:13 04/06/23 21:17 Cephalexin 500 Mg Capsule PO 04/06/23 21:14 500 mg ONCE ONE Administration Medical Decision Making MDM Narrative Medical decision making narrative: This is a very pleasant 82-year-old female on aspirin and Plavix who presents to the ER today with epistaxis from her right nares. She was having slow but persistent venous oozing for about 5 hours prior to arrival here in the ER. We initially attempted to control bleeding by direct pressure. Then by application of topical vasoconstrictors Afrin and lidocaine with epi. We also tried topical TXA. Ultimately we would able to identify what we thought was a site of bleeding about a cm deep from her nostril. We cauterized with silver nitrate but this too was unsuccessful in achieving hemostasis. Ultimately we packed with a 4.5 cm rhino rocket, inflated with 4 mL of air. Finally, hemostasis was achieved. Patient is continues to feel well. No symptoms of significant blood loss anemia. I do not think she needs to have hemoglobin check or monitoring. Although she has packing in her right nostril, she is able to breathe to left. No respiratory distress, hypoxia. She feels comfortable discharging home. Will start on prophylactic antibiotics to prevent sinus infection. She will need follow-up in the ENT clinic in 2-3 days. Unfortunately were not able to schedule an appointment for her tonight. She will call the clinic phone number tomorrow morning to schedule her follow-up appointment. Precautions for return to the ER reviewed Discharge Plan Discharge Clinical Impression: Epistaxis Patient Disposition: Home, Self-Care Condition: Stable Instructions: Nosebleed (ED) Additional Instructions: Please follow-up with the [facility] within 2-3 days or with your regular provider within 2-3 days to remove the packing. To schedule your appointment with the ENT Clinic, call [phone] tomorrow morning. Prescriptions: New cephalexin 500 mg capsule 500 mg PO TID Qty: 15 0RF No Action prednisone 10 mg tablet 20 mg PO DAILY omeprazole 20 mg capsule,delayed release(DR/EC) 20 mg PO DAILY simvastatin 20 mg tablet 20 mg PO HS aspirin 81 mg tablet,delayed release (DR/EC) 81 mg PO DAILY Hold Instructions: Resume on 06/28/22. clopidogrel 75 mg tablet 75 mg PO DAILY Hold Instructions: Resume on 06/28/22. Take 5 days of Xarelto postop. After this medication completion, you may restart clopidogrel. hydroxyurea 500 mg capsule 500 mg PO BID Hold Instructions: Resume on 03/23/22. Due to low blood counts, hold hydroxyurea and resume on 23 March 2022. ascorbic acid (vitamin C) 1,000 mg tablet 1,000 mg PO DAILY cholecalciferol (vitamin D3) 25 mcg (1,000 unit) capsule 50 mcg PO DAILY vitamin E (dl, acetate) 450 mg (1,000 unit) capsule 450 mg PO DAILY (DME) Walker- 2 Wheels [facility] [place] See Rx Instructions .Route Qty: 1 0RF Rx Instructions: As directed vitamin B complex [B Complex-Vitamin B12] Tablet 1 tab PO QDAY amoxicillin 500 mg capsule 2,000 mg PO ONCE Qty: 4 3RF Rx Instructions: Take all 4 capsules, 1 hour prior to dental appointment hydrochlorothiazide 12.5 mg tablet 12.5 mg PO DAILY acetaminophen 500 mg tablet 1,000 mg PO Q6H PRN loperamide 2 mg Capsule 2 mg PO QID PRN7 Days Qty: 20 0RF meclizine 12.5 mg tablet 12.5 mg PO TID-QID PRNQty: 60 0RF Rx Instructions: May use 1-2 tabs as needed every 6-8 hours for dizziness. cyclobenzaprine 7.5 mg tablet 7.5 mg PO QHS Qty: 30 3RF Follow Up/Referrals: Darleen Dacosta DO [Primary Care Provider] - Stand Alone Forms: [employer] Info Instructions
[2023-04-06] MEDS: TRANEXAMIC ACID 100 MG/ML INJ 1000 MG TOPICAL (21:00)
[2023-04-06] MEDS: OXYMETAZOLINE 0.05% NASAL SPRAY 1 SPRAY NOSTRIL-B (21:00)
[2023-04-06] MEDS: SILVER NITRATE APPLICATOR 1 EACH STICK..EA. TOPICAL (21:00)
[2023-04-06] MEDS: cephALEXin 500 MG CAPSULE PO (21:17)
== END 2023-04-06 22:00 | disposition home or self-care (01) ==
PROVIDERS: Emergency Provider Emergency Medicine; PCP Family Medicine
DX: R04.0 Epistaxis (principal)
CPT/HCPCS: 30901; 94761; 99283; A9270

== ENCOUNTER 2023-04-12 11:54 | Emergency (ER) | payer OTHER, SELFPAY ==
[2023-04-12 12:05] VITALS: BP 166/91; PULSE 89; RESP 18; TEMP 36.7; O2SAT 95; BMI 32.1
--- NOTE | 2023-04-12 13:56 | ED_ITS ---
HPI - General Adult General Time Seen by Provider: 13:59 <Desi Juares - Last Filed: 04/12/23 14:21> Date Seen: 04/12/23 <Desi Juares - Last Filed: 04/12/23 14:21> Chief complaint: Epistaxis/Nosebleed <Desi Mor - Last Filed: 04/12/23 14:21> Stated complaint: Bloody nose, on plavix <Desi Mor - Last Filed: 04/12/23 14:21> Time Seen by Provider: 04/12/23 14:04 <Desi Juares - Last Filed: 04/12/23 14:21> Source: patient <Desi Mor - Last Filed: 04/12/23 14:21> Mode of arrival: ambulatory <Desi Mor - Last Filed: 04/12/23 14:21> Limitations: no limitations <Desi Juares - Last Filed: 04/12/23 14:21> History of Present Illness HPI narrative: Pt is an 82 yo female on plavix w/ a hx of epistaxis last week with rhino-rocket placement which was removed three days prior to arrival who presents with a nosebleed that began at 0800 today. She reports that she did not bleed after the balloon was removed and that it started this morning when she was bending over loading the slip feeder. She denies headache, lightheadedness, nausea, vomiting or weakness. No blood going down the back of her throat. <Desi Juares - Last Filed: 04/12/23 14:21> Related Data Home medications: Home Medications Medication Instructions Recorded Confirmed ascorbic acid (vitamin C) 1,000 mg 1,000 mg PO DAILY 11/19/21 04/12/23 tablet aspirin 81 mg tablet,delayed 81 mg PO DAILY 11/19/21 04/12/23 release clopidogrel 75 mg tablet 75 mg PO DAILY 11/19/21 04/12/23 hydroxyurea 500 mg capsule 500 mg PO BID 11/19/21 04/12/23 simvastatin 20 mg tablet 20 mg PO HS 11/19/21 04/12/23 cholecalciferol (vitamin D3) 25 50 mcg PO DAILY 11/21/21 04/12/23 mcg (1,000 unit) capsule vitamin E (dl, acetate) 450 mg 450 mg PO DAILY 11/21/21 04/08/23 (1,000 unit) capsule hydrochlorothiazide 12.5 mg tablet 12.5 mg PO DAILY 06/08/22 04/12/23 acetaminophen 500 mg tablet 1,000 mg PO Q6H PRN 06/18/22 04/12/23 vitamin B complex (B 1 tab PO QDAY 07/02/22 04/08/23 Complex-Vitamin B12 tablet) omeprazole 20 mg capsule,delayed 20 mg PO DAILY 12/11/22 04/12/23 release prednisone 10 mg tablet 20 mg PO DAILY 12/11/22 04/08/23 Previous Rx's Medication Instructions Recorded Walker- 2 Wheels #1 ea 12/25/21 cyclobenzaprine 7.5 mg tablet 7.5 mg PO QHS #30 tabs 03/26/23 cephalexin 500 mg capsule 500 mg PO TID #15 caps 04/06/23 <Desi Juares - Last Filed: 04/12/23 14:21> Allergies/adverse reactions: Allergies Allergy/AdvReac Type Severity Reaction Status Date / Time alendronate sodium Allergy Severe severe Verified 04/08/23 14:08 aches bee venom protein (honey bee) Allergy Severe Swelling Verified 04/08/23 14:08 of Lip/Tongue/Throat <Desimele Juares - Last Filed: 04/12/23 14:21> Review of Systems Status of ROS: Reports: 10 or more systems reviewed and unremarkable except as noted in History and below <Singh Tripathi MD - Last Filed: 04/12/23 14:38> Narrative: Constitutional: No fevers, no weight gain or loss. Eyes: No discharge. No vision changes. HENT: No congestion, no sore throat, no ear pain. Recurrent bleed from the right nostril. Cardiovascular: No chest pain, no palpitations. Respiratory: No shortness of breath, no wheezes, no cough. Gastrointestinal: No abdominal pain, no vomiting, no diarrhea. Genitourinary: No dysuria, no hematuria. Musculoskeletal: Normal range of motion. Skin: No rashes, no pruritis. Neurological: No dizziness, weakness, sensory change, speech change. Endo/Heme/Allergies: No bruising or bleeding. No polydipsia. Pysch: no suicidality, no anxiety, no insomnia. All other systems reviewed and are negative. <Singh Tripathi MD - Last Filed: 04/12/23 14:38> [facility] Medical History: Medical History History of urinary retention ?Z87.898 - Personal history of other specified conditions (ICD-10) Diarrhea ?R19.7 - Diarrhea, unspecified (ICD-10) Retention of urine ?R33.9 - Retention of urine, unspecified (ICD-10) Postoperative hemorrhage Nausea and vomiting ?R11.2 - Nausea with vomiting, unspecified (ICD-10) Left lower quadrant abdominal pain ?R10.32 - Left lower quadrant pain (ICD-10) Diverticulitis ?K57.92 - Diverticulitis of intestine, part unspecified, without perforation or abscess without bleeding (ICD-10) Dehydration ?E86.0 - Dehydration (ICD-10) Cerebrovascular disease ?I67.9 - Cerebrovascular disease, unspecified (ICD-10) Abdominal pain ?R10.9 - Unspecified abdominal pain (ICD-10) Osteoarthritis of hip ?M16.9 - Osteoarthritis of hip, unspecified (ICD-10) Pelvic floor dysfunction in female ?M62.89 - Other specified disorders of muscle (ICD-10) 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 - Genetic susceptibility to other disease (ICD-10) Macrocytosis without anemia ?D75.89 - Other specified diseases of blood and blood-forming organs (ICD-10) Colitis ?K52.9 - Noninfective gastroenteritis and colitis, unspecified (ICD-10) Osteoarthritis of right knee ?M17.11 - Unilateral primary osteoarthritis, right knee (ICD-10) Polycythemia vera ?D45 - Polycythemia vera (ICD-10) Osteoarthritis of right hip ?M16.11 - Unilateral primary osteoarthritis, right hip (ICD-10) Cancer ?C80.1 - Malignant (primary) neoplasm, unspecified (ICD-10) Arthritis ?M19.90 - Unspecified osteoarthritis, unspecified site (ICD-10) Neck problem ?R68.89 - Other general symptoms and signs (ICD-10) Back problem ?M53.9 - Dorsopathy, unspecified (ICD-10) Osteoporosis ?M81.0 - Age-related osteoporosis without current pathological fracture (ICD-10) Kidney problem ?N28.9 - Disorder of kidney and ureter, unspecified (ICD-10) IBS (irritable bowel syndrome) ?K58.9 - Irritable bowel syndrome without diarrhea (ICD-10) Elevated cholesterol ?E78.00 - Pure hypercholesterolemia, unspecified (ICD-10) High blood pressure ?I10 - Essential (primary) hypertension (ICD-10) Asthma ?J45.909 - Unspecified asthma, uncomplicated (ICD-10) History of cerebrovascular accident ?Z86.73 - Personal history of transient ischemic attack (TIA), and cerebral infarction without residual deficits (ICD-10) Acute left flank pain ?R10.9 - Unspecified abdominal pain (ICD-10) <Desi Juares - Last Filed: 04/12/23 14:21> Surgical History: Surgical History 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) ?Z96.641 - Presence of right artificial hip joint (ICD-10) S/P arthroscopic partial lateral meniscectomy (11/12/21) ?Z98.890 - Other specified postprocedural states (ICD-10) Weakness of pelvic floor ?N81.89 - Other female genital prolapse (ICD-10) Bone spur ?M77.9 - Enthesopathy, unspecified (ICD-10) History of hysterectomy ?Z90.710 - Acquired absence of both cervix and uterus (ICD-10) Hx of breast biopsy ?Z98.890 - Other specified postprocedural states (ICD-10) <Desimele Juares Last Filed: 04/12/23 14:21> Family History: Family History Family/Other Breast cancer Colorectal cancer Sister Ovarian cancer Father Prostate cancer Paternal Grandmother Diabetes Mother CHF (congestive heart failure) Stroke Family/Other Parkinson disease Alcohol dependence <Desi [place] - Last Filed: 04/12/23 14:21> Social History: Social History (Reviewed 12/11/22 @ 09:52 by Ivelisse Weber ~ [facility], [facility]) Narrative: Marital Status: 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[employer] Alcohol Use: No Recreational Drug Use: No Smoking Status: Never smoker Do you use any of these nicotine containing products: None Second hand tobacco smoke exposure: No How often do you have a drink containing alcohol: never How often do you have six or more drinks on one occasion: Never AUDIT-C Alcohol total score: 0 Non-prescribed substance use: denies use Caffeine: No Are you using contraception or practicing any form of control: No service: No <Desi Juares - Last Filed: 04/12/23 14:21> Exam Narrative: Exam Narrative: General: Generally well appearing, clamp in place compressing b/l nostrils. HEENT: Dried blood present below R nostril. Clamp removed, no active bleeding present. L nasal turbinates normal, R nasal turbinates erythematous without sign of active bleed. <Desi Juares - Last Filed: 04/12/23 14:21> Exam Narrative: General: Generally well appearing, clamp in place compressing b/l nostrils. HEENT: Dried blood present below R nostril. Clamp removed, no active bleeding present. L nasal turbinates normal, R nasal turbinates erythematous without sign of active bleed. Neck: Normal range of motion. Nontender. Supple. Heart: Regular. No murmurs. Normal rate. Intact distal pulses. Lungs: Clear to auscultation. No chest discomfort. No wheezes, rhonchi, or rales. Abdomen: Normal bowel sounds. Nontender. No rebound tenderness. Genitalia: Deferred. Back: No midline tenderness. Normal range of motion. Extremities: Normal range of motion. No injury. Skin: Intact. No rash. Warm. No erythema or pallor. Neurologic: No altered sensation. No weakness. Alert and oriented. Psychiatric: No suicidality. No anxiety or depression. No insomnia. Nursing notes and vitals signs are reviewed. <Singh Tripathi MD - Last Filed: 04/12/23 14:38> Const: Vital Signs, click to edit/add: Vital Signs - 24 hr 04/12/23 12:05 Temperature 98.1 F Pulse Rate [Left P ulse Oximeter] 89 Respiratory Rate 18 Blood Pressure [Le ft Upper Arm] 166/91 H Pulse Oximetry 95 Oxygen Delivery Me thod Room Air <Desi Juares - Last Filed: 04/12/23 14:21> Vital Signs, click to edit/add: Vital Signs - 24 hr 04/12/23 12:05 Temperature 98.1 F Pulse Rate [Left P ulse Oximeter] 89 Respiratory Rate 18 Blood Pressure [Le ft Upper Arm] 166/91 H Pulse Oximetry 95 Oxygen Delivery Me thod Room Air <Singh Tripathi MD - Last Filed: 04/12/23 14:38> Course Vital Signs Vital signs: Initial Vital Signs Temperature 98.1 F 04/12/23 12:05 Temperature Source Temporal Artery Scan 04/12/23 12:05 Pulse Rate 89 04/12/23 12:05 Pulse Rhythm Regular 04/12/23 12:05 Pulse Strength 3+ Normal 04/12/23 12:05 Respiratory Rate 18 04/12/23 12:05 Blood Pressure 166/91 H 04/12/23 12:05 Blood Pressure Mean 116 H 04/12/23 12:05 Blood Pressure Position Sitting 04/12/23 12:05 Pulse Oximetry 95 04/12/23 12:05 Oxygen Delivery Method Room Air 04/12/23 12:05 Vital Signs Temperature 98.1 F 04/12/23 12:05 Pulse Rate 89 04/12/23 12:05 Respiratory Rate 18 04/12/23 12:05 Blood Pressure 166/91 H 04/12/23 12:05 Pulse Oximetry 95 04/12/23 12:05 Oxygen Delivery Method Room Air 04/12/23 12:05 Temperature 98.1 F 04/12/23 12:05 Pulse Rate 89 04/12/23 12:05 Respiratory Rate 18 04/12/23 12:05 Blood Pressure 166/91 H 04/12/23 12:05 Pulse Oximetry 95 04/12/23 12:05 Oxygen Delivery Method Room Air 04/12/23 12:05 <Desi Mor - Last Filed: 04/12/23 14:21> Initial Vital Signs Temperature 98.1 F 04/12/23 12:05 Temperature Source Temporal Artery Scan 04/12/23 12:05 Pulse Rate 89 04/12/23 12:05 Pulse Rhythm Regular 04/12/23 12:05 Pulse Strength 3+ Normal 04/12/23 12:05 Respiratory Rate 18 04/12/23 12:05 Blood Pressure 166/91 H 04/12/23 12:05 Blood Pressure Mean 116 H 04/12/23 12:05 Blood Pressure Position Sitting 04/12/23 12:05 Pulse Oximetry 95 04/12/23 12:05 Oxygen Delivery Method Room Air 04/12/23 12:05 Vital Signs Temperature 98.1 F 04/12/23 12:05 Pulse Rate 89 04/12/23 12:05 Respiratory Rate 18 04/12/23 12:05 Blood Pressure 166/91 H 04/12/23 12:05 Pulse Oximetry 95 04/12/23 12:05 Oxygen Delivery Method Room Air 04/12/23 12:05 Temperature 98.1 F 04/12/23 12:05 Pulse Rate 89 04/12/23 12:05 Respiratory Rate 18 04/12/23 12:05 Blood Pressure 166/91 H 04/12/23 12:05 Pulse Oximetry 95 04/12/23 12:05 Oxygen Delivery Method Room Air 04/12/23 12:05 <Singh Tripathi MD - Last Filed: 04/12/23 14:38> Medical Decision Making MDM Narrative Medical decision making narrative: This patient comes in because of a recurrent nose bleed. She had a bleed last week that was treated with a rhino rocket. This was removed 3 days ago but bleeding recurred today after bending forward. She is on aspirin and Plavix. At the time of my visit she had been wearing a nasal clamp for 10 or 15 minutes and there was no active bleeding. On examination her right nostril is not showing any sign of bleeding. There is some mild erythema on the septum of the right nostril apparently where there was some bleeding. I gave instructions to the patient regarding what to do if rebleeding occurs and strongly encouraged her to be very gentle with her nose to allow for healing to occur. <Singh Tripathi MD - Last Filed: 04/12/23 14:38> Discharge Plan Discharge Clinical Impression: Epistaxis <Desi Juares - Last Filed: 04/12/23 14:21> Patient Disposition: Home, Self-Care <Desi Juares - Last Filed: 04/12/23 14:21> Condition: Improved <Desi Juares - Last Filed: 04/12/23 14:21> Additional Instructions: Continue current plans. Apply nasal clamp if rebleeding occurs. Use Afrin also as directed and needed. Return if worsening. <Desi Juares - Last Filed: 04/12/23 14:21> Prescriptions: No Action prednisone 10 mg tablet 20 mg PO DAILY omeprazole 20 mg capsule,delayed release(DR/EC) 20 mg PO DAILY simvastatin 20 mg tablet 20 mg PO HS aspirin 81 mg tablet,delayed release (DR/EC) 81 mg PO DAILY Hold Instructions: Resume on 06/28/22. clopidogrel 75 mg tablet 75 mg PO DAILY Hold Instructions: Resume on 06/28/22. Take 5 days of Xarelto postop. After this medication completion, you may restart clopidogrel. hydroxyurea 500 mg capsule 500 mg PO BID Hold Instructions: Resume on 03/23/22. Due to low blood counts, hold hydroxyurea and resume on 23 March 2022. ascorbic acid (vitamin C) 1,000 mg tablet 1,000 mg PO DAILY cholecalciferol (vitamin D3) 25 mcg (1,000 unit) capsule 50 mcg PO DAILY vitamin E (dl, acetate) 450 mg (1,000 unit) capsule 450 mg PO DAILY (DME) Walker- 2 Wheels Misc See Rx Instructions .Route Qty: 1 0RF Rx Instructions: As directed vitamin B complex [B Complex-Vitamin B12] Tablet 1 tab PO QDAY hydrochlorothiazide 12.5 mg tablet 12.5 mg PO DAILY acetaminophen 500 mg tablet 1,000 mg PO Q6H PRN cephalexin 500 mg capsule 500 mg PO TID Qty: 15 0RF cyclobenzaprine 7.5 mg tablet 7.5 mg PO QHS Qty: 30 3RF Hold Instructions: Order Change <Desi Juares - Last Filed: 04/12/23 14:21> Follow Up/Referrals: Darleen Dacosta DO [Primary Care Provider] - <Desi Juares - Last Filed: 04/12/23 14:21> Stand Alone Forms: [employer] Info Instructions <Desi Juares - Last Filed: 04/12/23 14:21>
== END 2023-04-12 14:36 | disposition home or self-care (01) ==
PROVIDERS: Emergency Provider Emergency Medicine Emergency Medical Services; PCP Family Medicine
DX: R04.0 Epistaxis (principal)
CPT/HCPCS: 99282; 99283; 99284

== ENCOUNTER 2023-05-16 11:30 | Emergency (ER) | payer OTHER, SELFPAY ==
[2023-05-16 11:36] VITALS: BP 171/102; PULSE 96; RESP 20; TEMP 36.4; O2SAT 97; BMI 32.3
--- NOTE | 2023-05-16 11:47 | ED_ITS ---
HPI - General Adult General Time Seen by Provider: 11:48 Date Seen: 05/16/23 Chief complaint: Nausea/Vomiting Stated complaint: nauseous- in kidney failure Time Seen by Provider: 05/16/23 11:36 Source: patient and RN notes reviewed Mode of arrival: ambulatory Limitations: no limitations History of Present Illness HPI narrative: This 82-year-old female is coming in with worsening nausea and recent diagnosis of renal failure. She states she was diagnosed with renal failure in clinic on 05/13/2023. She looks like she was placed on Macrobid for UTI, did have a CT scan and they did not find any evidence of any kidney stones. She states she cannot get into a home health clinical liaison until 06/03/2023. She has developed a little cough, just describes it as a little irritating, maybe has some postnasal drainage. She has had no other respiratory symptoms with this. She is not short of breath. No chest pain, no abdominal pain. She has chronic colitis and has been started on Entyvia per her report, sees Dr. London through [facility]. Related Data Home Medications Medication Instructions Recorded Confirmed ascorbic acid (vitamin C) 1,000 mg 1,000 mg PO DAILY 11/19/21 04/12/23 tablet aspirin 81 mg tablet,delayed 81 mg PO DAILY 11/19/21 04/12/23 release clopidogrel 75 mg tablet 75 mg PO DAILY 11/19/21 04/12/23 hydroxyurea 500 mg capsule 500 mg PO BID 11/19/21 04/12/23 simvastatin 20 mg tablet 20 mg PO HS 11/19/21 04/12/23 cholecalciferol (vitamin D3) 25 50 mcg PO DAILY 11/21/21 04/12/23 mcg (1,000 unit) capsule vitamin E (dl, acetate) 450 mg 450 mg PO DAILY 11/21/21 04/08/23 (1,000 unit) capsule hydrochlorothiazide 12.5 mg tablet 12.5 mg PO DAILY 06/08/22 04/12/23 acetaminophen 500 mg tablet 1,000 mg PO Q6H PRN 06/18/22 04/12/23 vitamin B complex (B 1 tab PO QDAY 07/02/22 04/08/23 Complex-Vitamin B12 tablet) omeprazole 20 mg capsule,delayed 20 mg PO DAILY 12/11/22 04/12/23 release prednisone 10 mg tablet 20 mg PO DAILY 12/11/22 04/08/23 Previous Rx's Medication Instructions Recorded Walker- 2 Wheels #1 ea 12/25/21 cyclobenzaprine 7.5 mg tablet 7.5 mg PO QHS #30 tabs 03/26/23 cephalexin 500 mg capsule 500 mg PO TID #15 caps 04/06/23 Allergies Allergy/AdvReac Type Severity Reaction Status Date / Time alendronate sodium Allergy Severe severe Verified 04/08/23 14:08 aches bee venom protein (honey bee) Allergy Severe Swelling Verified 04/08/23 14:08 of Lip/Tongue/Throat Review of Systems Status of ROS: Reports: 6 or more systems reviewed and unremarkable except as noted in History and below [facility] Medical History History of urinary retention ?Z87.898 - Personal history of other specified conditions (ICD-10) Diarrhea ?R19.7 - Diarrhea, unspecified (ICD-10) Retention of urine ?R33.9 - Retention of urine, unspecified (ICD-10) Postoperative hemorrhage Nausea and vomiting ?R11.2 - Nausea with vomiting, unspecified (ICD-10) Left lower quadrant abdominal pain ?R10.32 - Left lower quadrant pain (ICD-10) Diverticulitis ?K57.92 - Diverticulitis of intestine, part unspecified, without perforation or abscess without bleeding (ICD-10) Dehydration ?E86.0 - Dehydration (ICD-10) Cerebrovascular disease ?I67.9 - Cerebrovascular disease, unspecified (ICD-10) Abdominal pain ?R10.9 - Unspecified abdominal pain (ICD-10) Osteoarthritis of hip ?M16.9 - Osteoarthritis of hip, unspecified (ICD-10) Pelvic floor dysfunction in female ?M62.89 - Other specified disorders of muscle (ICD-10) 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 - Genetic susceptibility to other disease (ICD-10) Macrocytosis without anemia ?D75.89 - Other specified diseases of blood and blood-forming organs (ICD-10) Colitis ?K52.9 - Noninfective gastroenteritis and colitis, unspecified (ICD-10) Osteoarthritis of right knee ?M17.11 - Unilateral primary osteoarthritis, right knee (ICD-10) Polycythemia vera ?D45 - Polycythemia vera (ICD-10) Osteoarthritis of right hip ?M16.11 - Unilateral primary osteoarthritis, right hip (ICD-10) Cancer ?C80.1 - Malignant (primary) neoplasm, unspecified (ICD-10) Arthritis ?M19.90 - Unspecified osteoarthritis, unspecified site (ICD-10) Neck problem ?R68.89 - Other general symptoms and signs (ICD-10) Back problem ?M53.9 - Dorsopathy, unspecified (ICD-10) Osteoporosis ?M81.0 - Age-related osteoporosis without current pathological fracture (ICD- 10) Kidney problem ?N28.9 - Disorder of kidney and ureter, unspecified (ICD-10) IBS (irritable bowel syndrome) ?K58.9 - Irritable bowel syndrome without diarrhea (ICD-10) Elevated cholesterol ?E78.00 - Pure hypercholesterolemia, unspecified (ICD-10) High blood pressure ?I10 - Essential (primary) hypertension (ICD-10) Asthma ?J45.909 - Unspecified asthma, uncomplicated (ICD-10) History of cerebrovascular accident ?Z86.73 - Personal history of transient ischemic attack (TIA), and cerebral infarction without residual deficits (ICD-10) Acute left flank pain ?R10.9 - Unspecified abdominal pain (ICD-10) Surgical History 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) ?Z96.641 - Presence of right artificial hip joint (ICD-10) S/P arthroscopic partial lateral meniscectomy (11/12/21) ?Z98.890 - Other specified postprocedural states (ICD-10) Weakness of pelvic floor ?N81.89 - Other female genital prolapse (ICD-10) Bone spur ?M77.9 - Enthesopathy, unspecified (ICD-10) History of hysterectomy ?Z90.710 - Acquired absence of both cervix and uterus (ICD-10) Hx of breast biopsy ?Z98.890 - Other specified postprocedural states (ICD-10) Family History Family/Other Breast cancer Colorectal cancer Sister Ovarian cancer Father Prostate cancer Paternal Grandmother Diabetes Mother CHF (congestive heart failure) Stroke Family/Other Parkinson disease Alcohol dependence Social History Narrative: Marital Status: 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[employer] Alcohol Use: No Recreational Drug Use: No Smoking Status: Never smoker Do you use any of these nicotine containing products: None Second hand tobacco smoke exposure: No How often do you have a drink containing alcohol: never How often do you have six or more drinks on one occasion: Never AUDIT-C Alcohol total score: 0 Non-prescribed substance use: denies use Caffeine: No Are you using contraception or practicing any form of control: No service: No Exam Const: Vital Signs, click to edit/add: Vital Signs - 24 hr 05/16/23 11:36 Temperature 97.6 F Pulse Rate [Pulse Oximeter] 96 Respiratory Rate 20 Blood Pressure [Ri ght Upper Arm] 171/102 H Pulse Oximetry 97 Oxygen Delivery Me thod Room Air Lory is a very pleasant 82-year-old female that has a little dry intermittent cough during our interaction. It does not stop her speech, she is able to speak in complete sentences, no hoarseness. Pupils are equal round reactive, sclera clear, symmetrical facial function. Lungs are clear, good air entry, no wheezing or crackles, no tachypnea. CV regular rate and rhythm, no murmur, normal S1-S2, no S3-S4. Abdomen is soft, nondistended, nontender, no organomegaly. She has no lower extremity pitting edema. She is ambulatory into the ED of her own accord. Documenting provider has reviewed patient's vital signs: yes Course Course ED Course: Patient is complaining of increased nausea, mild cough. Clinically she does not seem to be in congestive heart failure fluid overload but this is a consideration, will obtain portable chest x-ray. Will place an IV, get full complement of labs including electrolytes. Will get a baseline EKG in [place] she is showing some significant hyperkalemia. Will await our labs. I am not initiating fluids at this time, will await lab results back and chest x-ray imaging. She is currently hemodynamically stable, maybe a bit on the hypertensive side but will continue to monitor here. She has no pain complaints. We have reviewed that nausea certainly can be part of renal failure, need to make sure that she is safe and not moving into any emergent need for dialysis. Will do triple swab, did review with the cough the nausea, could be some viral syndrome developing as well. She is currently afebrile. Reevaluation(s) Time of Reevaluation #1: 14:26 Reevaluation #1: Have reviewed with patient that her creatinine is actually normal here, she does have evidence of age-related diminished kidney function but she is not in acute renal failure with an elevated creatinine. I did review her medical records. When they do a point of care creatinine in clinic as done on 05/13 or as evidence by August on 08/31 or 411, her levels have been elevated. Other creatinine 6 on March 16 that look like they were lab draw showed a creatinine of 0.95. She did have hematuria on her urinalysis on the . Her CT from that date showed no obstructive calculus or uropathy. There was no IV contrast which did not lead to good renal parenchymal evaluation. I did inform her she does have COVID. Her cough is only been present for 2 days. She would qualify for treatment. She states she has had all of the COVID shots, last 1 just about 2 months ago. Reviewed with her that the COVID vaccine does not necessarily stop the disease from happening but is indicated to diminish and severe disease from it. We discussed Paxlovid. Time of Reevaluation #2: 14:39 Reevaluation #2: When doing the [place] COVID medication review, patient is on clopidogrel, this is recommended to look for alternatives. It can decrease the effectiveness of the clopidogrel. Patient is already on 81 mg aspirin. She is on hydroxyurea for polycythemia vera, did have a stroke due to complications of the polycythemia vera. Thus, I really do not have the ability to recommend patient taking both of these together. I would think that she would be high risk to go off or diminish her Plavix for any significant duration. We have discussed use of remdesivir and have decided to use this instead as co administration of the Paxlovid and Plavix should be avoided in patient's a very high risk of thrombosis. I have to assume that she could be high risk, would recommend that she use the remdesivir. The other confounding issue is that she is having nausea likely from the COVID, the Paxlovid is very likely to increase the symptom for her as well. Vital Signs Vital signs: Initial Vital Signs Temperature 97.6 F 05/16/23 11:36 Temperature Source Temporal Artery Scan 05/16/23 11:36 Pulse Rate 96 05/16/23 11:36 Pulse Rhythm Regular 05/16/23 11:36 Respiratory Rate 20 05/16/23 11:36 Blood Pressure 171/102 H 05/16/23 11:36 Blood Pressure Mean 125 H 05/16/23 11:36 Blood Pressure Position Sitting 05/16/23 11:36 Pulse Oximetry 97 05/16/23 11:36 Oxygen Delivery Method Room Air 05/16/23 11:36 Vital Signs Temperature 97.6 F 05/16/23 11:36 Pulse Rate 96 05/16/23 11:36 Respiratory Rate 20 05/16/23 11:36 Blood Pressure 171/102 H 05/16/23 11:36 Pulse Oximetry 97 05/16/23 11:36 Oxygen Delivery Method Room Air 05/16/23 11:36 Temperature 97.6 F 05/16/23 11:36 Pulse Rate 96 05/16/23 11:36 Respiratory Rate 20 05/16/23 11:36 Blood Pressure 171/102 H 05/16/23 11:36 Pulse Oximetry 97 05/16/23 11:36 Oxygen Delivery Method Room Air 05/16/23 11:36 Medical Decision Making Lab Data Lab results reviewed: Yes I reviewed the patient's lab results Labs: Lab Results 05/16/23 05/16/23 Range/Units 12:00 12:15 WBC 5.00 (4.50-11.00) K/uL RBC 3.77 L (4.00-5.20) m/uL Hgb 13.0 (12.0-16.0) gm/dL Hct 43.4 (33.0-51.0) % MCV 115 H (80-100) fL MCH 35 H (26-34) pg MCHC 30 L (32-36) gm/dL RDW Coeff of Boy 16.9 H (11.5-15.5) % Plt Count 468 H (140-440) K/uL Neut % (Auto) 74.6 H (42.0-72.0) % Lymph % (Auto) 12.0 L (20-44) % Lares % (Auto) 10.2 (0.0-11.0) % Eos % (Auto) 1.6 (0.0-7.0) % Baso % (Auto) 0.8 (0.0-3.0) % Neut # (Auto) 3.70 (1.7-7.0) K/uL Lymph # (Auto) 0.60 L (0.90-2.90) K/uL Lares # (Auto) 0.50 (0.00-0.90) K/UL Eos # (Auto) 0.08 (0.00-0.50) K/uL Baso # (Auto) 0.04 (0.00-0.30) K/uL Abs Immat Gran (auto) 0.04 (0.00-0.30) K/uL Imm/Tot Granulo (auto) 0.8 % Sodium 137 (135-149) mmol/L Potassium 3.9 (3.6-5.1) mmol/L Chloride 99 (96-114) mmol/L Carbon Dioxide 26 (20-32) mmol/L Anion Gap 12 (7-15) mEq/L BUN 18 (7-30) mg/dL Creatinine 0.7 (0.5-1.5) mg/dL Estimated Creat Clear 33.29 Estimated GFR 87 ml/min Glucose 88 (60-115) mg/dL Lactate 1.0 (0.5-1.9) mmol/L Calcium 9.5 (8.4-10.6) mg/dL Phosphorus 3.1 (2.5-4.5) mg/dL Magnesium 2.0 (1.5-2.6) mg/dL Total Bilirubin 0.4 (0.1-1.5) mg/dL AST 28 (12-35) U/L ALT 16 (4-35) U/L Alkaline Phosphatase 92 (40-150) U/L NT-Pro-B Natriuret Pep 84 pg/mL Total Protein 7.6 (6.0-8.3) g/dL Albumin 4.3 (3.3-5.0) g/dL Lipase 48 (23-300) U/L SARS-CoV-2 (PCR) POSITIVE SARS-CoV-2 A (Negative) Influenza Type A (PCR) Negative PCR FLU A (Negative) Influenza Type B (PCR) Negative PCR FLU B (Negative) RSV (PCR) Negative PCR RSV (Negative) Imaging Data Chest x-ray: Attestation: I have reviewed the pertinent imaging results. My impression: On my preliminary review, no evidence of any infiltrate, no pulmonary edema/congestive heart failure, no x-ray evidence of any significant cardiomegaly. Radiologist's impression: Patient: SALVATORE DOAN Facility:?[facility] Patient ID:?[id number] Site Patient ID:?[id number]. Site :?[id number] Study:?XRay Chest 1v portable-05/16/2023 12:57:18 PM Ordering Physician:?Belkis Goodman Final Report: INDICATION: Cough. Renal failure. TECHNIQUE: One view. COMPARISON: 29 August 2017. IMPRESSION: No acute cardiopulmonary disease. 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 Cardiac pacing implant without leads over the left hemidiaphragm and inferior heart border. Dictated by Kevin Zapien MD @ 05/16/2023 1:22:43 PM (Electronic Signature) Critical Care Time Critical Care Time Critical Care Time: No Discharge Plan Discharge Clinical Impression: COVID-19, Nausea Patient Disposition: Home, Self-Care Condition: Stable Instructions: Acute Nausea and Vomiting (ED), COVID-19 (Coronavirus Disease 2019) (ED), COVID-19: Slow the Coronavirus Spread (ED), How to Recover from COVID-19 at Home (ED) Additional Instructions: Return for remdesivir tomorrow in the next day as per nursing directions. Review handout. If you are experiencing increased difficulty breathing, shortness of breath or chest pain, have other concerns with her COVID, do recommend re-evaluation. As for your kidney function, your creatinine was normal here at 0.7 but based on the creatinine clearance calculation, you do have age-related changes and diminished kidney function. You are not in acute renal failure. When I look at her records, when the use the point of care creatinine in clinic it comes back elevated. All of your laboratory creatinine have been normal and support what is called chronic kidney disease but not acute renal failure. I would advocate that they no longer check your creatinine on the point of care machine there. I am unsure why it is doing this, perhaps they can look into this further. You still could see the kidney specialist as you do have evidence of chronic kidney disease which we frequently see in patients above 65. The nephrologists can certainly review medicines and make recommendations and blood pressure management recommendations if need be. You need to quarantine for the COVID as per the CDC guidelines. Prescriptions: No Action prednisone 10 mg tablet 20 mg PO DAILY omeprazole 20 mg capsule,delayed release(DR/EC) 20 mg PO DAILY simvastatin 20 mg tablet 20 mg PO HS aspirin 81 mg tablet,delayed release (DR/EC) 81 mg PO DAILY Hold Instructions: Resume on 06/28/22. clopidogrel 75 mg tablet 75 mg PO DAILY Hold Instructions: Resume on 06/28/22. Take 5 days of Xarelto postop. After this medication completion, you may restart clopidogrel. hydroxyurea 500 mg capsule 500 mg PO BID Hold Instructions: Resume on 03/23/22. Due to low blood counts, hold hydroxyurea and resume on 23 March 2022. ascorbic acid (vitamin C) 1,000 mg tablet 1,000 mg PO DAILY cholecalciferol (vitamin D3) 25 mcg (1,000 unit) capsule 50 mcg PO DAILY vitamin E (dl, acetate) 450 mg (1,000 unit) capsule 450 mg PO DAILY (DME) Walker- 2 Wheels Misc See Rx Instructions .Route Qty: 1 0RF Rx Instructions: As directed vitamin B complex [B Complex-Vitamin B12] Tablet 1 tab PO QDAY hydrochlorothiazide 12.5 mg tablet 12.5 mg PO DAILY acetaminophen 500 mg tablet 1,000 mg PO Q6H PRN cephalexin 500 mg capsule 500 mg PO TID Qty: 15 0RF cyclobenzaprine 7.5 mg tablet 7.5 mg PO QHS Qty: 30 3RF Hold Instructions: Order Change Follow Up/Referrals: Darleen Dacosta DO [Primary Care Provider] - Stand Alone Forms: Inverted [facility] Info Instructions
[2023-05-16 11:52] VITALS: O2SAT 95
--- NOTE | 2023-05-16 11:52 | CRLHL7_ITS ---
For Patients: As a result of the Century Cures Act, medical imaging exams and procedure reports are released immediately into your electronic medical record. You may view this report before your referring provider. If you have questions, please contact your health care provider. INDICATION: Cough. Renal failure. TECHNIQUE: One view. COMPARISON: 29 August 2017. IMPRESSION: No acute cardiopulmonary disease. 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 Cardiac pacing implant without leads over the left hemidiaphragm and inferior heart border. Dictated by Kevin Zapien MD @ 05/16/2023 1:22:43 PM (Electronically Signed)
[2023-05-16 12:25] LABS: Basophils Absolute Auto 0.04 K/uL (0.00-0.30); Basophils Percent Auto 0.8 % (0.0-3.0); Eosinophils Absolute Auto 0.08 K/uL (0.00-0.50); Eosinophils Percent Auto 1.6 % (0.0-7.0); Hematocrit 43.4 % (33.0-51.0); Immature Granulocytes Abs Auto 0.04 K/uL (0.00-0.30); Immature Granulocytes Pct Auto 0.8 %; Mean Corpuscular HGB Conc 30 gm/dL (32-36); Mean Corpuscular Hemoglobin 35 pg (26-34); Mean Corpuscular Volume 115 fL (80-100); Monocytes Percent Auto 10.2 % (0.0-11.0); Neutrophils Percent Auto 74.6 % (42.0-72.0); Platelet Count* 468 K/uL (140-440); RDW Coefficient of Variation % 16.9 % (11.5-15.5); Red Blood Count 3.77 m/uL (4.00-5.20)
[2023-05-16 12:26] LABS: Slide Review Reflex No
[2023-05-16 12:47] LABS: Albumin* 4.3 g/dL (3.3-5.0); Chloride* 99 mmol/L (96-114); Potassium* 3.9 mmol/L (3.6-5.1); Sodium* 137 mmol/L (135-149)
[2023-05-16 12:49] LABS: Bilirubin Total* 0.4 mg/dL (0.1-1.5); Creatinine* 0.7 mg/dL (0.5-1.5); Est. Creatinine Clearance* 33.29; Estimated Glomerular Filt Rate 87 ml/min
[2023-05-16 12:50] LABS: PCR FLU A Negative PCR FLU A (Negative); PCR FLU B Negative PCR FLU B (Negative); PCR RSV Negative PCR RSV (Negative)
[2023-05-16 12:50] LABS: Alanine Aminotransferase* 16 U/L (4-35); Anion Gap 12 mEq/L (7-15); Aspartate Amino Transferase* 28 U/L (12-35); Blood Urea Nitrogen* 18 mg/dL (7-30); Calcium* 9.5 mg/dL (8.4-10.6); Carbon Dioxide* 26 mmol/L (20-32); Glucose* 88 mg/dL (60-115); Lipase* 48 U/L (23-300); Total Protein* 7.6 g/dL (6.0-8.3)
[2023-05-16 12:51] LABS: Phosphorus* 3.1 mg/dL (2.5-4.5)
[2023-05-16 13:01] LABS: NT Pro B Type NatriureticPept* 84 pg/mL
[2023-05-16 13:06] LABS: Alkaline Phosphatase* 92 U/L (40-150)
[2023-05-16 13:31] VITALS: BP 151/89; PULSE 82; RESP 18; O2SAT 95
[2023-05-16 13:32] LABS: SARS PCR* POSITIVE SARS-CoV-2 (Negative)
[2023-05-16 14:00] VITALS: BP 142/79; PULSE 79; RESP 18; O2SAT 94
[2023-05-16 15:54] VITALS: BP 147/88; RESP 18; O2SAT 97
== END 2023-05-16 16:07 | disposition home or self-care (01) ==
PROVIDERS: Emergency Provider Family Medicine; PCP Family Medicine
DX: U07.1 COVID-19 (principal); N19 Unspecified kidney failure
CPT/HCPCS: 36415; 71045; 80053; 83605; 83690; 83735; 83880; 84100; 85025; 87631; 94761; 99284; 99285; J7050

== ENCOUNTER 2023-05-18 14:20 | Outpatient (RCR) | payer OTHER, SELFPAY ==
[2023-05-17 14:30] VITALS: BP 138/90; PULSE 79; RESP 20; TEMP 36.5; O2SAT 98
[2023-05-17 16:05] VITALS: BP 149/78; PULSE 91; RESP 16; TEMP 36.3; O2SAT 94
--- NOTE | 2023-05-17 16:05 | PC.NURSE ---
Day 2 Remdesivir infusion: Pleasant and cooperative patient was given 2nd dose of Remdesivir and tolerated it well. VSS and pt is afebrile. SPO2 >94% on RA. Tolerated infusion well. Pt discharged to home ambulatory with IV in place planning to arrive at 14:30 tomorrow for final dose.
[2023-05-18 14:44] VITALS: BP 144/84; PULSE 86; RESP 16; TEMP 36.6; O2SAT 98
--- NOTE | 2023-05-18 16:23 | PC.NURSE ---
Pt alert and oriented. VSS; Pt had no complaints of pain. Pt came in for last dose of remdesivir. Pt stated she feels like she has a cold. Pt's IV removed catheter intact.
== END 2023-12-15 23:59 | disposition home or self-care (01) ==
LOC: MS OUT 14:20
PROVIDERS: PCP Family Medicine; Visit Provider Family Medicine
DX: U07.1 COVID-19 (principal)
CPT/HCPCS: 96365; 99211; J7050

== ENCOUNTER 2023-06-30 08:49 | Emergency (ER) | payer OTHER, SELFPAY ==
[2023-06-30 09:01] VITALS: BP 139/74; PULSE 99; RESP 28; TEMP 36.7; O2SAT 95; BMI 31.2
--- NOTE | 2023-06-30 09:12 | ED_ITS ---
HPI - General Adult General Chief complaint: Abdominal Pain Stated complaint: flu symptoms Time Seen by Provider: 06/30/23 08:58 History of Present Illness HPI narrative: Became ill on Wednesday night with a fever up to 102. has been unable to take much food since that time . has been weak and fatigued. has hx of colitis and has an upset stomach. drove self in. lives independently with her . reports that she is belching a lot . Had covid 2 weeks ago. 83-year-old woman presenting to the emergency department with concern of fatigue and some weakness. Has not been feeling well over the last 4 days or so. Initially had a fever and some chills but that seems to have subsided. Feels like stomach has been somewhat upset since. She does not actually report vomiting. Had checked in with her doctor worried that she might be having a flare of colitis but she does not have any diarrhea nor frankly abdominal pain. Sounds like generally sense of urgency but no dysuria. Has just cleared COVID apparently. At the same time notes that she just can not eat or drink anything but she does admit to being able to drink milk Sprite and water and then notes that that is really all she has tried. Feeling quite belchy. Does have chronic urgency and she notes a history of pelvic floor lift. Related Data Home Medications Medication Instructions Recorded Confirmed ascorbic acid (vitamin C) 1,000 mg 1,000 mg PO DAILY 11/19/21 04/12/23 tablet aspirin 81 mg tablet,delayed 81 mg PO DAILY 11/19/21 04/12/23 release clopidogrel 75 mg tablet 75 mg PO DAILY 11/19/21 04/12/23 hydroxyurea 500 mg capsule 500 mg PO BID 11/19/21 04/12/23 simvastatin 20 mg tablet 20 mg PO HS 11/19/21 04/12/23 cholecalciferol (vitamin D3) 25 50 mcg PO DAILY 11/21/21 04/12/23 mcg (1,000 unit) capsule vitamin E (dl, acetate) 450 mg 450 mg PO DAILY 11/21/21 04/08/23 (1,000 unit) capsule hydrochlorothiazide 12.5 mg tablet 12.5 mg PO DAILY 06/08/22 04/12/23 acetaminophen 500 mg tablet 1,000 mg PO Q6H PRN 06/18/22 04/12/23 vitamin B complex (B 1 tab PO QDAY 07/02/22 04/08/23 Complex-Vitamin B12 tablet) omeprazole 20 mg capsule,delayed 20 mg PO DAILY 12/11/22 04/12/23 release prednisone 10 mg tablet 20 mg PO DAILY 12/11/22 04/08/23 Previous Rx's Medication Instructions Recorded Walker- 2 Wheels #1 ea 12/25/21 cyclobenzaprine 7.5 mg tablet 7.5 mg PO QHS #30 tabs 03/26/23 cephalexin 500 mg capsule 500 mg PO TID #15 caps 04/06/23 cephalexin 500 mg capsule 500 mg PO TID #15 caps 06/30/23 ondansetron 4 mg disintegrating 4 mg PO Q4-6H PRN nausea and 06/30/23 tablet vomiting #12 tabs Allergies Allergy/AdvReac Type Severity Reaction Status Date / Time alendronate sodium Allergy Severe severe Verified 04/08/23 14:08 aches bee venom protein (honey bee) Allergy Severe Swelling Verified 04/08/23 14:08 of Lip/Tongue/Throat Review of Systems Status of ROS: Reports: 6 or more systems reviewed and unremarkable except as noted in History and below [facility] Medical History History of urinary retention ?Z87.898 - Personal history of other specified conditions (ICD-10) Diarrhea ?R19.7 - Diarrhea, unspecified (ICD-10) Retention of urine ?R33.9 - Retention of urine, unspecified (ICD-10) Postoperative hemorrhage Nausea and vomiting ?R11.2 - Nausea with vomiting, unspecified (ICD-10) Left lower quadrant abdominal pain ?R10.32 - Left lower quadrant pain (ICD-10) Diverticulitis ?K57.92 - Diverticulitis of intestine, part unspecified, without perforation or abscess without bleeding (ICD-10) Dehydration ?E86.0 - Dehydration (ICD-10) Cerebrovascular disease ?I67.9 - Cerebrovascular disease, unspecified (ICD-10) Abdominal pain ?R10.9 - Unspecified abdominal pain (ICD-10) Osteoarthritis of hip ?M16.9 - Osteoarthritis of hip, unspecified (ICD-10) Pelvic floor dysfunction in female ?M62.89 - Other specified disorders of muscle (ICD-10) 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 - Genetic susceptibility to other disease (ICD-10) Macrocytosis without anemia ?D75.89 - Other specified diseases of blood and blood-forming organs (ICD-10) Colitis ?K52.9 - Noninfective gastroenteritis and colitis, unspecified (ICD-10) Osteoarthritis of right knee ?M17.11 - Unilateral primary osteoarthritis, right knee (ICD-10) Polycythemia vera ?D45 - Polycythemia vera (ICD-10) Osteoarthritis of right hip ?M16.11 - Unilateral primary osteoarthritis, right hip (ICD-10) Cancer ?C80.1 - Malignant (primary) neoplasm, unspecified (ICD-10) Arthritis ?M19.90 - Unspecified osteoarthritis, unspecified site (ICD-10) Neck problem ?R68.89 - Other general symptoms and signs (ICD-10) Back problem ?M53.9 - Dorsopathy, unspecified (ICD-10) Osteoporosis ?M81.0 - Age-related osteoporosis without current pathological fracture (ICD- 10) Kidney problem ?N28.9 - Disorder of kidney and ureter, unspecified (ICD-10) IBS (irritable bowel syndrome) ?K58.9 - Irritable bowel syndrome without diarrhea (ICD-10) Elevated cholesterol ?E78.00 - Pure hypercholesterolemia, unspecified (ICD-10) High blood pressure ?I10 - Essential (primary) hypertension (ICD-10) Asthma ?J45.909 - Unspecified asthma, uncomplicated (ICD-10) History of cerebrovascular accident ?Z86.73 - Personal history of transient ischemic attack (TIA), and cerebral infarction without residual deficits (ICD-10) Acute left flank pain ?R10.9 - Unspecified abdominal pain (ICD-10) Surgical History 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) ?Z96.641 - Presence of right artificial hip joint (ICD-10) S/P arthroscopic partial lateral meniscectomy (11/12/21) ?Z98.890 - Other specified postprocedural states (ICD-10) Weakness of pelvic floor ?N81.89 - Other female genital prolapse (ICD-10) Bone spur ?M77.9 - Enthesopathy, unspecified (ICD-10) History of hysterectomy ?Z90.710 - Acquired absence of both cervix and uterus (ICD-10) Hx of breast biopsy ?Z98.890 - Other specified postprocedural states (ICD-10) Family History Family/Other Breast cancer Colorectal cancer Sister Ovarian cancer Father Prostate cancer Paternal Grandmother Diabetes Mother CHF (congestive heart failure) Stroke Family/Other Parkinson disease Alcohol dependence Social History Narrative: Marital Status: Occupation: [employer] Alcohol Use: No Recreational Drug Use: No Smoking Status: Never smoker Do you use any of these nicotine containing products: None Second hand tobacco smoke exposure: No How often do you have a drink containing alcohol: never How often do you have six or more drinks on one occasion: Never AUDIT-C Alcohol total score: 0 Non-prescribed substance use: denies use Caffeine: No Are you using contraception or practicing any form of control: No service: No Exam Narrative: Exam Narrative: Very pleasant. Of good energy. Skin is warm and dry. Extremities are without edema. Moving all extremities without difficulty. Lungs are clear. Heart with elevated rate and regular rhythm. Abdomen is soft and a little uncomfortable in suprapubic area. No masses appreciated. No flank pain. Oropharynx is moist and without erythema. Neck is supple without lymphadenopathy. Const: Vital Signs, click to edit/add: Vital Signs - 24 hr 06/30/23 09:01 Temperature 98.1 F Pulse Rate [Femora l] 99 Respiratory Rate 28 H Blood Pressure [Ri ght Upper Arm] 139/74 Pulse Oximetry 95 Oxygen Delivery Me thod Room Air Documenting provider has reviewed patient's vital signs: yes Course Vital Signs Vital signs: Initial Vital Signs Temperature 98.1 F 06/30/23 09:01 Temperature Source Temporal Artery Scan 06/30/23 09:01 Pulse Rate 99 06/30/23 09:01 Pulse Rhythm Regular 06/30/23 09:01 Respiratory Rate 28 H 06/30/23 09:01 Blood Pressure 139/74 06/30/23 09:01 Blood Pressure Mean 95 06/30/23 09:01 Blood Pressure Position Supine 06/30/23 09:01 Pulse Oximetry 95 06/30/23 09:01 Oxygen Delivery Method Room Air 06/30/23 09:01 Vital Signs Temperature 98.1 F 06/30/23 09:01 Pulse Rate 99 06/30/23 09:01 Respiratory Rate 28 H 06/30/23 09:01 Blood Pressure 139/74 06/30/23 09:01 Pulse Oximetry 95 06/30/23 09:01 Oxygen Delivery Method Room Air 06/30/23 09:01 Temperature 98.1 F 06/30/23 09:01 Pulse Rate 99 06/30/23 09:01 Respiratory Rate 28 H 06/30/23 09:01 Blood Pressure 139/74 06/30/23 09:01 Pulse Oximetry 95 06/30/23 09:01 Oxygen Delivery Method Room Air 06/30/23 09:01 Medications Administered Medications: Discontinued Medications Generic Name Dose Route Start Last Admin Trade Name Freq PRN Reason Stop Dose Admin Ondansetron HCl 4 mg 06/30/23 09:22 06/30/23 09:35 Ondansetron Odt 4 Mg Tab PO 06/30/23 09:23 4 mg ONCE ONE Administration Medical Decision Making MDM Narrative Medical decision making narrative: Seems to have a viral process NOS. Considering community prevalence would see if this recent illness might represent influenza or COVID again. Would evaluate though for cystitis/UTI as well. Also offered Zofran soaking more easily test oral intake here in the emergency department. We decide to take Zofran and check urine and triple swab and go from there. Urinalysis looks positive. With no new symptom other than persistent urgency unknown at sure how significant this is but it looks to be relatively convincing for infection. I think this is reasonable to treat. Appears to be tolerating oral intake here. Vitally well. Anticipating discharge her return to discuss this likely had. Ms. Rojas is wondering whether or going to do any blood work. With normal vitals and exam it seems mostly unnecessary. It could certainly advise further and not unreasonable. We decided to draw some blood but she will be discharged and I will follow-up results as necessary. I do note hyponatremia in this redraw. This could be in the setting of malnutrition/dehydration with recent COVID. Anticipate recheck in a couple of weeks. Mild bump in AST as well. Also possible secondary recent illness. Hemoglobin of 10.1 looks to be similar to prior though 3 g lower than 3 months ago. History of macrocytic anemia Otherwise see patient discharge plan Following departure - I did report these findings and discuss generally with Ms. Rojas. She further informs me that relatively recently was seen by Nephrology noted to have proteinuria and initiated on a course of antibiotics and referred to Urology. Unknown if there were any urine culture results. Confirms that does have a urology appointment at the end of the week and will be likely be having contrasted abdominal scan of some sort and cystoscopy. Urine culture's pending. Lab Data Lab results reviewed: Yes I reviewed the patient's lab results Labs: Lab Results 06/30/23 06/30/23 06/30/23 Range/Units 09:30 09:35 10:56 WBC 7.56 (4.50-11.00) K/uL RBC 2.83 L (4.00-5.20) m/uL Hgb 10.1 L (12.0-16.0) gm/dL Hct 32.8 L (33.0-51.0) % MCV 116 H (80-100) fL MCH 36 H (26-34) pg MCHC 31 L (32-36) gm/dL RDW Coeff of Boy 16.7 H (11.5-15.5) % Plt Count 242 (140-440) K/uL Neut % (Auto) 79.4 H (42.0-72.0) % Lymph % (Auto) 8.7 L (20-44) % Kerr % (Auto) 10.7 (0.0-11.0) % Eos % (Auto) 0.1 (0.0-7.0) % Baso % (Auto) 0.3 (0.0-3.0) % Neut # (Auto) 6.00 (1.7-7.0) K/uL Lymph # (Auto) 0.70 L (0.90-2.90) K/uL Kerr # (Auto) 0.80 (0.00-0.90) K/UL Eos # (Auto) 0.01 (0.00-0.50) K/uL Baso # (Auto) 0.02 (0.00-0.30) K/uL Abs Immat Gran (auto) 0.06 (0.00-0.30) K/uL Imm/Tot Granulo (auto) 0.8 % Sodium 130 L (135-149) mmol/L Potassium 3.5 L (3.6-5.1) mmol/L Chloride 94 L (96-114) mmol/L Carbon Dioxide 29 (20-32) mmol/L Anion Gap 7 (7-15) mEq/L BUN 30 (7-30) mg/dL Creatinine 0.7 (0.5-1.5) mg/dL Estimated Creat Clear 32.73 Estimated GFR 86 ml/min Glucose 107 (60-115) mg/dL Calcium 9.5 (8.4-10.6) mg/dL Total Bilirubin 0.5 (0.1-1.5) mg/dL Direct Bilirubin 0.2 (0.0-0.5) mg/dL AST 49 H (12-35) U/L ALT 23 (4-35) U/L Alkaline Phosphatase 114 (40-150) U/L Total Protein 7.4 (6.0-8.3) g/dL Albumin 3.8 (3.3-5.0) g/dL Urine Color Yellow (Yellow) Urine Appearance Cloudy A (Clear) Urine pH 6.5 (5.0-8.5) Ur Specific Greer 1.015 (1.000-1.030) Urine Protein 2+ A (Negative) Urine Glucose (UA) Negative (Negative) Urine Ketones Negative (Negative) Urine Blood 2+ A (Negative) Urine Nitrite Negative (Negative) Urine Bilirubin Negative (Negative) Urine Urobilinogen 1.0 (0.2-1.0) Ur Leukocyte Esterase 3+ A (Negative) Urine RBC 0-2 (0-2) Urine WBC 25-50 A (0-5) Ur Squamous Epith Cells Few (None-Few) Urine Bacteria Few A (None) SARS-CoV-2 (PCR) Negative SARS-CoV-2 (Negative) Influenza Type A (PCR) Negative PCR FLU A (Negative) Influenza Type B (PCR) Negative PCR FLU B (Negative) RSV (PCR) Negative PCR RSV (Negative) Discharge Plan Discharge Clinical Impression: Malaise, Cystitis Patient Disposition: Home, Self-Care Condition: Stable Additional Instructions: Stay well-hydrated. Return/be seen for increasing persistent abdominal pain, repeated vomiting, fever, worsening weakness. I will call you with results of these at on tests here today if anything is positive/requires conversation. I anticipate you having follow-up for your kidney evaluation at the end of the week. Sending in cephalexin for what might be a urinary tract infection and Zofran for nausea if you need. Prescriptions: New cephalexin 500 mg capsule 500 mg PO TID Qty: 15 0RF ondansetron 4 mg tablet,disintegrating 4 mg PO Q4-6H PRN (Reason: nausea and vomiting) Qty: 12 0RF No Action prednisone 10 mg tablet 20 mg PO DAILY omeprazole 20 mg capsule,delayed release(DR/EC) 20 mg PO DAILY simvastatin 20 mg tablet 20 mg PO HS aspirin 81 mg tablet,delayed release (DR/EC) 81 mg PO DAILY Hold Instructions: Resume on 06/28/22. clopidogrel 75 mg tablet 75 mg PO DAILY Hold Instructions: Resume on 06/28/22. Take 5 days of Xarelto postop. After this medication completion, you may restart clopidogrel. hydroxyurea 500 mg capsule 500 mg PO BID Hold Instructions: Resume on 03/23/22. Due to low blood counts, hold hydroxyurea and resume on 23 March 2022. ascorbic acid (vitamin C) 1,000 mg tablet 1,000 mg PO DAILY cholecalciferol (vitamin D3) 25 mcg (1,000 unit) capsule 50 mcg PO DAILY vitamin E (dl, acetate) 450 mg (1,000 unit) capsule 450 mg PO DAILY (DME) [facility] Instructions .Route Qty: 1 0RF Rx Instructions: As directed vitamin B complex [B Complex-Vitamin B12] Tablet 1 tab PO QDAY hydrochlorothiazide 12.5 mg tablet 12.5 mg PO DAILY acetaminophen 500 mg tablet 1,000 mg PO Q6H PRN cephalexin 500 mg capsule 500 mg PO TID Qty: 15 0RF cyclobenzaprine 7.5 mg tablet 7.5 mg PO QHS Qty: 30 3RF Hold Instructions: Order Change Follow Up/Referrals: Darleen Dacosta DO [Primary Care Provider] - Stand Alone Forms: [facility] Info Instructions
[2023-06-30] MEDS: ONDANSETRON ODT 4 MG TAB PO (09:35)
[2023-06-30 09:43] LABS: Appearance Urine Cloudy (Clear); Bilirubin Urine Negative (Negative); Blood Urine 2+ (Negative); Color Urine Yellow (Yellow); Glucose Urine Negative (Negative); Ketones Urine Negative (Negative); Leukocyte Esterase Urine 3+ (Negative); Nitrite Urine Negative (Negative); Protein Urine 2+ (Negative); Specific Gravity Urine 1.015 (1.000-1.030); pH Urine 6.5 (5.0-8.5)
[2023-06-30 10:08] LABS: Bacteria Urine Few; RBC Urine 0-2 (0-2); Squamous Epithelial Cell Urine Few (None-Few); WBC Urine 25-50 (0-5)
[2023-06-30 10:18] LABS: PCR FLU A Negative PCR FLU A (Negative); PCR FLU B Negative PCR FLU B (Negative); PCR RSV Negative PCR RSV (Negative); SARS PCR* Negative SARS-CoV-2 (Negative)
[2023-06-30 11:22] LABS: Basophils Absolute Auto 0.02 K/uL (0.00-0.30); Basophils Percent Auto 0.3 % (0.0-3.0); Eosinophils Absolute Auto 0.01 K/uL (0.00-0.50); Eosinophils Percent Auto 0.1 % (0.0-7.0); Hematocrit 32.8 % (33.0-51.0); Hemoglobin* 10.1 gm/dL (12.0-16.0); Immature Granulocytes Abs Auto 0.06 K/uL (0.00-0.30); Immature Granulocytes Pct Auto 0.8 %; Lymphocytes Percent Auto 8.7 % (20-44); Mean Corpuscular HGB Conc 31 gm/dL (32-36); Mean Corpuscular Hemoglobin 36 pg (26-34); Mean Corpuscular Volume 116 fL (80-100); Monocytes Percent Auto 10.7 % (0.0-11.0); Neutrophils Percent Auto 79.4 % (42.0-72.0); Platelet Count* 242 K/uL (140-440); RDW Coefficient of Variation % 16.7 % (11.5-15.5); Red Blood Count 2.83 m/uL (4.00-5.20); White Blood Count* 7.56 K/uL (4.50-11.00)
[2023-06-30 11:23] LABS: Slide Review Reflex No
[2023-06-30 11:42] LABS: Albumin* 3.8 g/dL (3.3-5.0)
[2023-06-30 11:45] LABS: Bilirubin Direct* 0.2 mg/dL (0.0-0.5); Bilirubin Total* 0.5 mg/dL (0.1-1.5); Total Protein* 7.4 g/dL (6.0-8.3)
[2023-06-30 11:46] LABS: Alanine Aminotransferase* 23 U/L (4-35); Alkaline Phosphatase* 114 U/L (40-150); Aspartate Amino Transferase* 49 U/L (12-35)
[2023-06-30 12:27] LABS: Chloride* 94 mmol/L (96-114); Sodium* 130 mmol/L (135-149)
[2023-06-30 12:30] LABS: Anion Gap 7 mEq/L (7-15); Blood Urea Nitrogen* 30 mg/dL (7-30); Carbon Dioxide* 29 mmol/L (20-32); Creatinine* 0.7 mg/dL (0.5-1.5); Est. Creatinine Clearance* 32.73; Estimated Glomerular Filt Rate 86 ml/min; Potassium* 3.5 mmol/L (3.6-5.1)
[2023-06-30 12:31] LABS: Calcium* 9.5 mg/dL (8.4-10.6); Glucose* 107 mg/dL (60-115)
== END 2023-06-30 10:55 | disposition home or self-care (01) ==
PROVIDERS: Emergency Provider Family Medicine; PCP Family Medicine
DX: R53.81 Other malaise (principal); N30.90 Cystitis, unspecified without hematuria
CPT/HCPCS: 36415; 80048; 80076; 81001; 85025; 87086; 87186; 87631; 99283; 99284; A9270

== ENCOUNTER 2023-07-09 10:24 | Outpatient (CLI) | payer OTHER, SELFPAY ==
--- OUTSIDE RECORDS SUMMARY | 2023-07-09 10:28 | XMS_ITS | Encounter Summary ---
Author Name Unknown Organization [facility] Address [address] [place] [id number] Care Team Providers Care Kier Operator Name Role Phone Unavailable Primary Care Provider Unavailabl e Reason for Visit * Reason Onset Date Comments Procedure 10/13/2022 COLONOSCOPY Encounter Details Date Type Department Care Team (Late st Contact Info) Description 10/13/2022 Telephone [facility] [address] [place] [address] None Procedure (COLONOSCOPY) Social History Tobacco Use Types Packs/Day Years Used Date Smoking Tobacco: Never Assessed Sex and Gender Information Value Date Recorded Sex Assigned at Not on file Gender Identity Not on file Sexual Orientation Not on file documented as of this encounter Miscellaneous Notes * Telephone Encounter - Alison Phillips - 10/20/2022 1:27 PM CDT [facility] CALLED CHECKING ON TIME AND DATE. I LET THEM KNOW THAT JARED MIRZA WAS WAITING FOR A RESPONSE AND THAT WE DO NOT HAVE AN ORDER YET * Telephone Encounter - Genevieve Barnett - 10/15/2022 12:40 PM CDT Called Aidee back and left message that we are still working on things. Jared Darby is still waiting to hear from Ije. * Telephone Encounter - Deepa Marshall - 10/15/2022 12:15 PM CDT Melvin called back to check on progress. Let him know we would check into this and give him a call back. Gave us a new extension which is [phone] and that will route to Aidee. * Telephone Encounter - Gladis Howard - 10/13/2022 3:24 PM CDT Melvin ([facility] [phone]) reached out to add patient on for Colonoscopy with Dr London duringattending on 10/26 at for 12pm. No order, informed caller that order is needed prior to scheduling. Caller states their protocol is to send order after confirming date and time. Email sent to e to coordinate as Dr London does not have a regular block on this day. Canelo blockreleased for room GI C, possible scheduling there, hold placed. Procedure - Colonoscopy Sed - MODERATE DX- R93.3 documented in this encounter Plan of Treatment Not on file documented as of this encounter Visit Diagnoses Not on filedocumented in this encounter
--- OUTSIDE RECORDS SUMMARY | 2023-07-09 10:28 | XMS_ITS | Encounter Summary ---
Author Name Unknown Organization [facility] Address [address] [place] [id number] Care Team Providers Care Manager Gift Name Role Phone No Ref-Primary, Physician Primary Care Provider Encounter Details Date Type Department Care Team (Latest Contact Info) Description 10/26/2022 Travel Social History Tobacco Use Types Packs/Day Years Used Date Smoking Tobacco: Never Smokeless Tobacco: Never Alcohol Use Standard Drinks/Week Comments Not Currently 0 (1 standard drink = 0.6 oz pur e alcohol) Sex and Gender Information Value Date Recorded Sex Assigned at Not on file Gender Identity Not on file Sexual Orientation Not on file COVID-19 Exposure Response Date Recorded In the last 10 days, have yo u been in contact with someone who was confirmed or suspected to have Coronavirus/COVID-19? No / Unsure 10/26/2022 12:03 PM CDT documented as of this encounter Plan of Treatment Not on file documented as of this encounter Visit Diagnoses Not on filedocumented in this encounter Care Teams Manager Gift Relationship Specialty Start Date End Date No Ref-Primary, Physician PCP - General 10/23/22 documented as of this encounter
--- OUTSIDE RECORDS SUMMARY | 2023-07-09 10:28 | XMS_ITS | Clinical Summary ---
Author Name Unknown Organization [facility] Address [place], [place] [address] Care Team Providers Care Carpenter Form Name Role Phone Bk Sigala MD Unavailable [phone] Yennifer Baird MD Unavailable Darleen Dacosta DO Primary Care Provider Divya Dudley MD Unavailable Jessica Gibson NP Unavailable Allergies Active Allergy Reactions Criticality Noted Date Comments Venom-Honey Bee Angioedema 01/23/2022 has done fine with bees in the past. Could have been a hornet. Alendronate Sodium Other - Describe In Comment Field Medium 05/04/2008 PELVIC FLOOR PAIN Medications Medication Sig Dispensed Refills Start Date End Date Status vitamin E acetate (VITAMIN E ORAL) Take 180 mg by mouth once daily. 0 Active acetaminophen (TYLENOL EXTRA STRGTH) 500 mg tablet Take 1,000 mg by mouth every 6 hours if needed for Pain. Max acetaminophen dose: 4000mg in 24 hrs. 0 04/29/2020 Active ascorbic acid, vitamin C, (VITAMIN C) 1,000 mg tablet Take 1,000 mg by mouth once daily. 0 Active aspirin 81 mg cap Take by mouth. 0 10/03/2021 Act barney EPINEPHrine (EPIPEN) 0.3 mg/0.3 mL auto-injectorIndica tions:Anaphylactic reaction to bee sting, accidental or unintentional, sequela Inject 0.3 mg (1 pen) intramuscular each time if needed for Allergic Reaction. 1 Each 3 01/23/2022 Active hydroCHLOROthiazide 12.5 mg tabletIndications:H TN (hypertension) Take 1 Tablet (12.5 mg) by mouth once daily. 90 Tablet 2 12/17/2022 Active cyanocobalamin (VITAMIN B12) 1,000 mcg tablet Take 1,000 mcg by mouth. 0 Active cholecalciferol, Vitamin D3, 2,000 unit tabletIndications:D isorder of bone and cartilage Take 2 Tablets (4,000 units) by mouth once daily. 0 01/22/2023 Active clopidogreL (PLAVIX) 75 mg tabletIndications:C erebrovascular accident (CVA), unspecified mechanism (HC) Take 1 Tablet (75 mg) by mouth every morning. RESUME TAKING ON Wednesday07/18/21 90 Tablet 2 02/05/2023 Active predniSONE (DELTASONE) 2.5 mg tablet 20 mg. 0 01/27/2023 Active simvastatin (ZOCOR) 20 mg tabletIndications:C erebrovascular accident (CVA), unspecified mechanism (HC) TAKE 1 TABLET BY MOUTH EVERY DAY IN THE EVENING 90 Tablet 2 03/20/2023 Active famotidine (PEPCID) 20 mg tablet Take 20 mg by mouth once daily. 0 05/13/2023 Active ketoconazole 2% topical (NIZORAL) cream MIX IN 11 RATIO WITH DESONIDE CREAM AND APPLY A THIN LAYER TO THE AFFECTED AREAS AROUND HER MOUTH TWICE DAILY FOR UP TO 2 WEEKS. 0 05/12/2023 Active desonide 0.05% (TRIDESILON 0.05% CREAM) 0.05 % cream APPLY TO EYELIDS TWICE DAILY FOR 1-2 WEEKS. MIX 11 WITH KETOCONAZOLE CREAM AND APPLY TO AFFECTED AREAS AROUND MOUTH TWICE DAILY FOR 1-2 WEE 0 05/12/2023 Active ondansetron (ZOFRAN ODT) 4 mg disintegrating tabletIndications:A cute renal failure superimposed on chronic kidney disease, unspecified acute renal failure type, unspecified CKD stage (HC) Place 1 Tablet (4 mg) on the tongue every 8 hours if needed for Nausea/Vomiting. 30 Tablet 0 05/21/2023 Active hydroxyurea (HYDREA) 500 mg capsuleIndications: Leukocytosis, unspecified type TAKE 1 CAPSULE(500 MG) BY MOUTH TWICE DAILY 180 Capsule 3 05/26/2023 Active nystatin (MYCOSTATIN) 100,000 unit/gram topical creamIndications:Sk in yeast infection Apply topically to affected area(s) two times daily. 30 g 0 05/28/2023 Active cephalexin (KEFLEX) 500 mg capsuleIndications: UTI (urinary tract infection), uncomplicated Take 1 Capsule (500 mg) by mouth two times daily for 7 days. 14 Capsule 0 06/08/2023 06/15/19 24 Active Problems Problem Noted Date Diagnosed Date Left sided ulcerative (chronic) colitis 03/05/20 Left sided ulcerative colitis 12/22/2022 Allergic reaction to insect bite 03/24/2022 Anemia, macrocytic 03/24/2022 Calculus of left ureter 03/24/2022 Leukopenia due to antineoplastic chemotherapy Last Assessment & Plan: hydroxyurea for PCV. aDrleen Dacosta D.OMarcel 09/28/2022 12:44 PM Non-ST elevation (NSTEMI) myocardial infarction 03/24/2022 Osteoarthritis of right hip 03/24/2022 S/P arthroscopic partial lateral meniscectomy Vision loss of left eye 03/24/2022 Cerebrovascular accident (CVA) 03/24/2022 MDS (myelodysplastic syndrome) 12/15/2021 History of intussusception 12/15/2021 Overview: Grade 3 rectal intussusception 2018 ?? Normocalcemic primary hyperparathyroidism 2021 Diverticular disease 06/24/2021 Diarrhea 03/31/2021 Nausea 03/31/2021 Abdominal pain 03/31/2021 Thrombocythemia 02/02/2020 Overview: Component Latest Ref Rng & Units 10/20/2019 11/06/2019 11/15/2019 PLATELET COUNT 140 - 440 thou/cu mm 558 (H) 753 (H) 585 (H) Acute gastric ulcer without hemorrhage or perfor ation 01/23/2020 Overview: EGD 12/2019 5 mm gastric ulcer secondary to aspirin, will use Pepcid since patient is on Plavix no follow-up upper endoscopy is needed Polycythemia vera 12/07/2019 History of stroke 12/27/2018 Adrenal mass, right 01/06/2018 Overview: suspected from adrenal hemorrhage while on plavix. follow up will be in March 2018 with endo and imaging. Dyslipidemia 01/02/2018 Right lateral abdominal pain 01/02/2018 Overview: 2/2 adrenal hematoma vs hemorrhagic mass while on plavix Elevated troponin 01/02/2018 Diverticulosis of large intestine without hemorr shai 01/02/2018 Overview: Severe diverticular stricture, biopsies from the colon showed no microscopic colitis. No follow-up colonoscopy is needed given the severe diverticular stricture and no polyps found today Osteoporosis 08/19/2016 ACP (advance care planning) 01/16/2014 Overview: Has done living will. 10/09/2011 Bowel habit changes 01/16/2014 Personal history of colonic polyps 09/09/2011 Overview: Colonoscopy 08/2011 diverticulosis repeat in 5 years Colonoscopy 10/2017 severe diverticular disease, 2 mm polyp, no follow up colonoscopy needed Severe diverticular stricture, biopsies from the colon showed no microscopic colitis. No follow-up colonoscopy is needed given the severe diverticular stricture and no polyps found today HTN (hypertension) 04/01/2009 Leukocytosis, unspecified 08/07/2007 Overview: In setting of ARF and renal stenting osteopenia 08/06/2007 Overview: Previous use of actonel 3 years. Off a couple years and then decline. Resumed 2012 and will consider taking for 5 years. Roxanna Brambila M.D. 10/02/2011 11:00 AM History of kidney stones 04/11/2007 Irritable bowel syndrome 04/11/2007 Overview: collagenus colitis on colonoscopy in 1990, normal exams since then. Cystocele, midline Vaginal vault prolapse Resolved Problems Problem Noted Date Diagnosed Date Resolved Date Left sided colitis, unspecified complication 2 07/22/2022 Acute ischemic colitis 04/03/202107/223 Right hand weakness 12/27/2018 01/11/20 19 Acute UTI 01/02/2018 01/10/2019 Acute kidney failure, unspecified 08/07/2007 09/21/2007 Overview: Creatinine elevation to 2.9 after complicated right renal lithotripsy and stent placement. Nonspecific (abnormal) findi ngs on radiological and other examination of genitourinary organs 08/07/2007 04/20/2008 Overview: Abnormal CT scan: right kidney enlargement, free air external to right ureter, stent in ureter. Nausea with vomiting 08/07/2007 008 Other alteration of consciousness 08/07/2007 04/20/2008 Encounters Date Type Department Care Team Description 07/07/[address] [phone] Divya Dudley MD Lab (pre-appointment labs schedule 07/19) 07/05/2023 Orders Only [facility] [address] [place] [address] Darleen Dacosta, Outside Order (Ordered by Feliz Maddox) 07/05/2023 Telephone [facility] [address] [place] [address] Darleen Dacosta DO Follow Up (UA test) 07/05/2023 Nurse Triage [facility] [address] [place] [address] Darleen Dacosta, DO Abnormal Stool 06/18/2023 1:00 PM INFORMATION SPECIALIST Orders Only [address] [address] [place] Outside Order (Dr. Yonas Carrasquillo) 06/18/2023 Travel 2023 Orders Only [facility] [address] [place] [address] Darleen Dacosta DO Outside Order (Ordered by Dr. Yonas Jain... 06/07/[address] [address] Darleen Dacosta, Results 05/28/2023 10:07 AM INFORMATION SPECIALIST - 05/28/2023 11:59 PM INFORMATION SPECIALIST Hospital Encounter [facility] [address] [place] [address] Left sided ulcerative (chronic) colitis (HC) (Primary Dx) 05/28/2023 9:00 AM INFORMATION SPECIALIST Office Visit [facility] [address] [place] [address] Anne Mccracken PA Derm Problem (Two days ago she noticed her belly button was sore and looked irritated. It is only painful to the touch. ) 05/28/2023 Travel 05/27/2023 Nurse Triage [facility] [address] [place] [address] Darleen Dacosta, Derm Problem 05/25/2023 Telephone [facility] [address] [place] [address] Jessica Gibson, [employer] Appointment 05/21/2023 9:00 AM INFORMATION SPECIALIST Office Visit [facility] [address] [place] [address] Darleen Dacosta, Kidney Problem (nausea all the time) 05/21/2023 Hospital/[facility] Telephone Encounter [facility] [address] [place] [address] Juju Ibrahim RN Pre Procedure (PVP) 05/21/2023 Refill [facility] [address] [place] [address] Darleen Dacosta DO Refill Request (Hydroxyurea) 05/21/2023 Travel 05/18/2023 Telephone [facility] [address] [place] [address] Jessica Gibson, [employer] Appointment 05/18/2023 Telephone [facility] [address] [place] [address] Darleen Dacosta DO Questions 05/16/2023 Orders Only [facility] Scanner 1 scan: (1-Ord) [facility], CHEST, 05/16/2023 05/13/2023 11:00 AM INFORMATION SPECIALIST Ancillary Procedure [facility] [address] [facility] [address] 05/13/2023 8:45 AM INFORMATION SPECIALIST Office Visit [facility] [address] [place] [address] [place], [place] Perrin MD Urinary Problem (Hematuria, x 5 days) 05/13/2023 Travel from Last 3 Months Immunizations Name Administration Dates Next Due AMB INFLUENZA IIV3 (AGE 65+ YRS) PF (Flu Clinic Only) 02/22/2018 COVID-19 vaccine (Moderna 50mcg/0.5mL) 12YO+ BIVALENT PF, MDV 02/12/2022 COVID-19 vaccine (Pfizer-Bio NTech 30mcg/0.3mL) 12YO+ PATRICK-SUCROSE PF, MDV 09/08/2021 COVID-19 vaccine (Pfizer-Bio NTech 30mcg/0.3mL) PF, MDV 02/12/2021,07/27/2020,07/06/2020 Influenza A (H1N1), Inactiva lita (Age >=3 Years) 05/10/2009 Influenza RIV4 (Age 18+ Year s) PRESERV FREE 03/25/2019 Influenza, High-dose Inactivated 02/17/2016 Influenza, High-dose Quadriv alent Inactivated 03/14/2023 Influenza, IIV3 (Age >=3 years) 02/27/20 14,03/03/2012,04/22/2011,2009,02/27/2009,03/19/2008,03/24/2007,1 06/03/2005 Influenza, IIV4 02/18/2015 Influenza, Inactivated AIIV4 (Age 65+ Years) Preserv Free 02/23/2022,02/05/2021,02/14/2020 Influenza, Inactivated IIV3 (Age 65+ Years) Preserv Free 03/17/2017 Pneumococcal Poly,23-Valent (Pneumovax) 08/30/2007 Pneumococcal conj 13-Valent (Prevnar 13) 02/18/2015 Td (Age >=7 Years) 05/24/2001 Td, Preservative Free (age > = 7 Years) 09/01/2019 Tdap 10/02/2011 Zoster (Zostavax-ZVL, live) 04/11/2007 Family History Medical History Relation Name Comments Cancer-prostate Father age 76 Heart Disease Mother age 87, c hf. Stroke Mother Cancer-breast Other cousin on moth er's side Blood Disease Sister 1 age 7, le ukemia Cancer Sister 2 ovarian, dx age 62 Relation Name Status Comments Father Mother Other Sister 1 Sister 2 Social History Tobacco Use Types Packs/Day Years Used Date Smoking Tobacco: Never Smokeless Tobacco: Never Tobacco Cessation:Counseling Given: Yes Alcohol Use Standard Drinks/Week Comments No 0 (1 standard drink = 0.6 oz pur e alcohol) PHQ-2 Answer Date Recorded PHQ-2 TOTAL SCORE 0 01/23/2022 Social Connections Answer Date Recorded Frequency of Communication with Friends and Fami ly 0 05/28/2023 Financial Resource Strain Answer Date R ecorded Difficulty of Paying Living Expenses 3 05/28/2023 Difficulty of Paying Living Expenses Not on file 05/28/2023 Food Insecurity Answer Date Recorded Worried About Running Out of Food in the Last Ye ar 1 05/28/2023 Transportation Needs Answer Date Record ed Lack of Transportation (Medical) 1 05/28/2023 Housing Stability Answer Date Recorded Unable to Pay for Housing in the Last Year 1 05/28/2023 Sex and Gender Information Value Date Recorded Sex Assigned at Not on file Gender Identity Not on file Sexual Orientation Not on file Obstetrics History Para Term AB IAB SAB Ectopic Multiple Livin g Live Births 4 3 1 1 3 Date Outcome GA Total Labor Labor/2nd/3rd Weight Sex Delivery Anes PTL Dahlia A1 A5 Name Cl in Para Para Para SAB Last Filed Vital Signs Vital Sign Reading Time Taken Comments Blood Pressure 135/67 05/28/2023 10:32 AM INFORMATION SPECIALIST Pulse 94 05/28/2023 10:32 AM INFORMATION SPECIALIST Temperature 36.6 ??C (97.9 ??F) 05/28/2023 10:[address] Respiratory Rate 18 05/28/2023 10:32 AM INFORMATION SPECIALIST Oxygen Saturation 97% 05/28/2023 10:32 AM INFORMATION SPECIALIST Inhaled Oxygen Concentration - - Weight 75.3 kg (166 lb) 05/28/2023 9:01 AM INFORMATION SPECIALIST Height 154.9 cm (5' 1) 05/13/2023 8:45 AM INFORMATION SPECIALIST Body Mass Index 31.37 05/13/2023 8:45 AM INFORMATION SPECIALIST Plan of Treatment Upcoming Encounters Date Type Department Care Team (Late st Contact Info) Description 07/09/2023 1:00 PM INFORMATION SPECIALIST Orders Only [facility] [address] [facility] [address] [place] 07/19/2023 10:30 AM INFORMATION SPECIALIST Orders Only [facility] [address] [facility] [address] [place] 07/22/2023 11:00 AM INFORMATION SPECIALIST Office Visit [facility] [address] [place] [phone] Divya Dudley MD [address] [place] [address] 07/22/2023 12:00 PM INFORMATION SPECIALIST Appointment [facility] [address] [place] [address] Health Maintenance Due Date Last Done Comments Zoster (shingles) series for age 50+ (1 of 2) 06/06/2007 04/11/2007 Medicare Wellness for age 65+ 03/18/2018, 02/17/2016, 02/13/2015, Additional history exists Depression screening for age 12+ 01/23/2023 01/23/2022, 01/20/2021, 01/15/2021, Additional history exists COVID-19 vaccine series ( season) 2023 03/02/2023, 02/12/2022, 09/08/2021, Additional history exists BMI (ht and wt on same day) for age 18+ 05/13/2024 05/13/2023, 07/22/2022, 02/27/2022, Additional history exists Tetanus booster 08/31/2029 09/01/2019, 09/21, 10/02/2011, Additional history exists Tdap Completed 10/02/2011 Pneumococcal series for age 65+ Completed 5, 08/30/2007 DEXA/DXA scan for age 65+ Completed 2021, 02/17/2016, 11/11/2012, Additional history exists Influenza for age 65+ Completed 03/14/2023 , 02/23/2022, 02/05/2021, Additional history exists Medical Devices Implanted Type Area Director Trade Device Identifier Shelf Expiration Date Model / Serial / Lot Stent Uret [id number] W/Tether - [id number] Implanted:Qty: 1 on 05/04/2008 at [facility] Left: Ureter [employer] Miguelina [id number]# / / [id number] Stent Uret [id number] Silhouette - [id number] Implanted:Qty: 1 on 12/28/2018 by Ryley Dunbar MBBS at [facility] Left: Ureter [employer] Miguelina [id number]# / / [id number] Mesh Pelvic [id number] Gynemesh - [id number] Implanted:Qty: 1 on 07/15/2021 by Jessica Campbell MD at [facility] Pelvis [employer] / Uro 04/22/2026 [id number] / / [id number] Explanted Type Area Director Trade Device Identifier Shelf Expiration Date Model / Serial / Lot Power Port Isp Mri 6fr [id number] - [id number] Implanted:Qty : 1 on 12/14/2019 by Nida Bello DO at [facility] Explanted:Qty : 1 on 07/17/2020 by Nida Bello DO at [facility] Right: Subclavian Vein [employer] 01/21/2021 [id number] / / [id number] Procedures Procedure Name Priority Date/Time Associated Diagnosis Comments URINE ALBUMIN TO CREATININE RATIO, RANDOM Routine 06/18/2023 12:49 PM INFORMATION SPECIALIST Gross hematuria Hypouricemia PROTEIN/CREAT RATIO,URINE Routine 06/18/2023 12:49 PM INFORMATION SPECIALIST Gross hematuria Hypouricemia URINALYSIS MICROSCOPIC Routine 05/21/2023 9:48 AM INFORMATION SPECIALIST Acute renal failure superimposed on chronic kidney disease, unspecified acute renal failure type, unspecified CKD stage (HC) UA W/ SEDIMENT EXAM REFLEXED PER CRITERIA Add On 05/21/2023 9:48 AM INFORMATION SPECIALIST Acute renal failure superimposed on chronic kidney disease, unspecified acute renal failure type, unspecified CKD stage (HC) PROTEIN/CREAT RATIO,URINE Routine 05/21/2023 9:48 AM INFORMATION SPECIALIST Acute renal failure superimposed on chronic kidney disease, unspecified acute renal failure type, unspecified CKD stage (HC) Hematuria, unspecified type CBC WITH AUTO DIFFERENTIAL Routine 05/21/2023 9:40 AM INFORMATION SPECIALIST Acute renal failure superimposed on chronic kidney disease, unspecified acute renal failure type, unspecified CKD stage (HC) Hematuria, unspecified type Microscopic colitis, unspecified microscopic colitis type Polycythemia vera (HC) Anemia, macrocytic IMMUNOFIXATION,SERUM Routine 05/21/2023 9:40 AM INFORMATION SPECIALIST Acute renal failure superimposed on chronic kidney disease, unspecified acute renal failure type, unspecified CKD stage (HC) Hematuria, unspecified type PROTEIN ELP SERUM W REFLEX Routine 05/21/2023 9:40 AM INFORMATION SPECIALIST Acute renal failure superimposed on chronic kidney disease, unspecified acute renal failure type, unspecified CKD stage (HC) Hematuria, unspecified type C4 COMPLEMENT Routine 05/21/2023 9:40 AM INFORMATION SPECIALIST Acute renal failure superimposed on chronic kidney disease, unspecified acute renal failure type, unspecified CKD stage (HC) Hematuria, unspecified type C3 COMPLEMENT Routine 05/21/2023 9:40 AM INFORMATION SPECIALIST Acute renal failure superimposed on chronic kidney disease, unspecified acute renal failure type, unspecified CKD stage (HC) Hematuria, unspecified type ANCA PANEL FOR VASCULITIS Routine 05/21/2023 9:40 AM INFORMATION SPECIALIST Acute renal failure superimposed on chronic kidney disease, unspecified acute renal failure type, unspecified CKD stage (HC) Hematuria, unspecified type ANTINUCLEAR ANTIBODY BY IFA Routine 05/21/2023 9:40 AM INFORMATION SPECIALIST Acute renal failure superimposed on chronic kidney disease, unspecified acute renal failure type, unspecified CKD stage (HC) Hematuria, unspecified type COMP METABOLIC PANEL Routine 05/21/2023 9:40 AM INFORMATION SPECIALIST Acute renal failure superimposed on chronic kidney disease, unspecified acute renal failure type, unspecified CKD stage (HC) Hematuria, unspecified type CBC WITH AUTO DIFFERENTIAL Routine 05/21/2023 9:40 AM INFORMATION SPECIALIST Acute renal failure superimposed on chronic kidney disease, unspecified acute renal failure type, unspecified CKD stage (HC) Hematuria, unspecified type Microscopic colitis, unspecified microscopic colitis type Polycythemia vera (HC) Anemia, macrocytic SCAN-RADIOLOGY REPORT 05/16/2023 12:[address] ABDOMEN PELVIS STONE PROTOCOL WO STAT 05/13/2023 10:19 AM INFORMATION SPECIALIST Hematuria, unspecified type CREATININE,ISTAT Routine 05/13/2023 10:1 1 AM INFORMATION SPECIALIST Observation or evaluation for suspected condition URINALYSIS MICROSCOPIC Routine 05/13/2023 8:40 AM INFORMATION SPECIALIST Hematuria, unspecified type UA W/ SEDIMENT EXAM REFLEXED PER CRITERIA Routine 05/13/2023 8:40 AM INFORMATION SPECIALIST Hematuria, unspecified type from Last 3 Months Results * (ABNORMAL) PROTEIN/CREAT RATIO,URINE (06/18/2023 12:49 PM INFORMATION SPECIALIST) Only the most recent of2 resultswithin the time period is included. PROTEIN QUANT,RAND URINE 59(H) 1 - 14 mg/dL 06/19/2023 12:01 AM INFORMATION SPECIALIST [facility] CREAT,RANDOM URINE 140.0 28.0 - 217.0 mg/dL 06/19/2023 12:01 AM INFORMATION SPECIALIST [facility] PROT/CREAT RATIO,UR 0.4(H) <0.2 06/19/2023 12:01 AM INFORMATION SPECIALIST [facility] Urine URINE SPECIMEN / Unknown Non-Blood / Unknown 06/18/2023 12:49 PM INFORMATION SPECIALIST 06/18/2023 12:49 PM INFORMATION SPECIALIST Darleen Brinkmorgan DO URINE Performing Organization Address City/[facility] Co de Phone Number [facility] [address] [place] [address], * (ABNORMAL) URINE ALBUMIN TO CREATININE RATIO, RANDOM (06/18/2023 12:49 PM INFORMATION SPECIALIST) ALB RAND URINE 152.0 mg/L 06/19/2023 12:05 AM INFORMATION SPECIALIST [facility] CREATININE,URIN E 1.44 g/L 06/19/2023 12:05 AM INFORMATION SPECIALIST [facility] ALBUMIN TO CREATININE RATIO,RAND UR 105.6(H) <30.0 mg/g creat 06/19/2023 12:05 AM [facility] Urine URINE SPECIMEN / Unknown Non-Blood / Unknown 06/18/2023 12:49 PM INFORMATION SPECIALIST 06/18/2023 12:49 PM INFORMATION SPECIALIST Narrative [facility] - 06/19/2023 12:05 AM INFORMATION SPECIALIST If Albumin to Creatinine Ratio is elevated, consider the following: ? Elevations seen with incipient nephropathy associated ?? with diabetes mellitus or hypertension. Stress, exercise,hematuria, ?? and urinary tract infection may also produce elevated results. If clinically indicated, confirm with ?24 Hour Albumin to Creatinine Ratio. ?? Darleen Beverley Dacosta DO URINE Performing Organization Address City/[facility]/ZIP Co de Phone Number [facility] [address] [place] [address], * (ABNORMAL) URINALYSIS MICROSCOPIC (05/21/2023 9:48 AM INFORMATION SPECIALIST) Only the most recent of2 resultswithin the time period is included. RBC >100(A) 0-2, None Seen /HPF 05/21/2023 12:04 PM INFORMATION SPECIALIST [facility] WBC 6-10(A) 0-2, 3-5, None Seen /HPF 05/21/2023 12:04 PM [facility] BACTERIA Few None Seen, Rare, Few Bacteria/H PF 05/21/2023 12:04 PM INFORMATION SPECIALIST [facility] EPITHELIAL CELLS Few None Seen, Few Epi/HPF 05/21/2023 12:04 PM [facility] Urine URINE SPECIMEN / Unknown Non-Blood / Unknown 05/21/2023 9:48 AM INFORMATION SPECIALIST 05/21/2023 9:48 AM INFORMATION SPECIALIST [place] Jacobs MD URINE [facility] [address] [place] [address], * (ABNORMAL) UA W/ SEDIMENT EXAM REFLEXED PER CRITERIA (05/21/2023 9:48 AM INFORMATION SPECIALIST) Only the most recent of2 resultswithin the time period is included. COLOR Red(A) Yellow Color 05/21/2023 12:04 PM [facility] CLARITY Cloudy(A) Clear Clarity 05/21/2023 12:04 PM [facility] SPECIFIC GRAVITY,URINE Unable to interpret due to interfering substance(A) 1.010, 1.015, 1.020, 1.025 05/21/2023 12:04 PM [facility] PH,URINE Unable to interpret due to interfering substance(A) 6.0, 7.0, 8.0, 5.5, 6.5, 7.5, 8.5 05/21/2023 12:04 PM [facility] UROBILINOGEN, QUALITATIVE Unable to interpret due to interfering substance(A) Normal EU/dl 05/21/2023 12:04 PM [facility] PROTEIN, URINE Unable to interpret due to interfering substance(A) Negative mg/dL 05/21/2023 12:04 PM [facility] GLUCOSE, URINE Unable to interpret due to interfering substance(A) Negative mg/dL 05/21/2023 12:04 PM INFORMATION SPECIALIST [facility] KETONES,URINE Unable to interpret due to interfering substance(A) Negative mg/dL 05/21/2023 12:04 PM INFORMATION SPECIALIST [facility] BILIRUBIN,URI NE Unable to interpret due to interfering substance(A) Negative 05/21/2023 12:04 PM INFORMATION SPECIALIST [facility] OCCULT BLOOD,URINE Unable to interpret due to interfering substance(A) Negative 05/21/2023 12:04 PM INFORMATION SPECIALIST [facility] NITRITE Unable to interpret due to interfering substance(A) Negative 05/21/2023 12:04 PM INFORMATION SPECIALIST [facility] LEUKOCYTE ESTERASE Unable to interpret due to interfering substance(A) Negative 05/21/2023 12:04 PM INFORMATION SPECIALIST [facility] Urine URINE SPECIMEN / Unknown Non-Blood / Unknown 05/21/2023 9:48 AM INFORMATION SPECIALIST 05/21/2023 9:48 AM INFORMATION SPECIALIST River Jacobs MD URINE [facility] [address] [place] [address], * (ABNORMAL) PROTEIN ELP SERUM W REFLEX (05/21/2023 9:40 AM INFORMATION SPECIALIST) ELP,ALBUMIN 3.46 3.31 - 5.31 g/dL 05/26/2023 5:53 PM INFORMATION SPECIALIST [facility] ELP,ALPHA 1 0.37 0.19 - 0.42 g/dL 05/26/2023 5:[address] [facility] ELP,ALPHA 2 0.92 0.44 - 1.03 g/dL 05/26/2023 5:53 PM INFORMATION SPECIALIST [facility] ELP,GAMMA 1.00 0.59 - 1.46 g/dL 05/26/2023 5:53 PM [facility] ELP,BETA 1.14(H) 0.52 - 1.05 g/dL 05/26/2023 5:53 PM [facility] MONOCLONAL PEAK 1 0.11 <=0.00 g/dL 05/26/2023 5:53 PM INFORMATION SPECIALIST [facility] ELP INTERP,SERUM Interval study shows a decrease in magnitude of previously identified monoclonal peak. Previous Study: 0.19 gm/dL on 09/01/2022. Interpreted and electronically signed by: Sheela Monroy MD 05/26/2023 5:53 PM INFORMATION SPECIALIST [facility] PROTEIN,TOTAL 6.9 6.0 - 8.0 g/dL 05/26/2023 5:53 PM INFORMATION SPECIALIST [facility] Blood BLOOD SPECIMEN / Unknown Butterfly / Unknown 05/21/2023 9:40 AM INFORMATION SPECIALIST 05/21/2023 9:43 AM INFORMATION SPECIALIST Darleen Dacosta DO CHEMISTRY Performing Organization Address City/[facility]/ZIP Co de Phone Number [facility] [address] [place] [address], [place] * ANTINUCLEAR ANTIBODY BY IFA (05/21/2023 9:40 AM INFORMATION SPECIALIST) ANTINUCLEAR ANTIBODY (SOHAIL) Negative Negative 05/25/2023 1:50 PM INFORMATION SPECIALIST [facility] Blood BLOOD SPECIMEN / Unknown Butterfly / Unknown 05/21/2023 9:40 AM INFORMATION SPECIALIST 05/21/2023 9:43 AM INFORMATION SPECIALIST Narrative [facility] - 05/25/2023 1:50 PM INFORMATION SPECIALIST Method: SOHAIL screen performed by (IFA) on HEP-2 substrate, IgG Darleen Dacosta DO CHEMISTRY [facility] [address] [place] [address], [place] * (ABNORMAL) CBC WITH AUTO DIFFERENTIAL (05/21/2023 9:40 AM INFORMATION SPECIALIST) WHITE BLOOD COUNT 5.3 4.5 - 11.0 thou/cu mm 05/21/2023 9:49 AM INFORMATION SPECIALIST [facility] RED BLOOD COUNT 3.60(L) 4.00 - 5.20 mil/cu mm 05/21/2023 9:49 AM [facility] HEMOGLOBIN 12.9 12.0 - 16.0 g/dL 05/21/2023 9:49 AM [facility] HEMATOCRIT 40.8 33.0 - 51.0 % 05/21/2023 9:49 AM [facility] MCV 113(H) 80 - 100 fL 05/21/2023 9:49 AM [facility] MCH 35.8(H) 26.0 - 34.0 pg 05/21/2023 9:49 AM [facility] MCHC 31.6(L) 32.0 - 36.0 g/dL 05/21/2023 9:49 AM [facility] RDW 17.2(H) 11.5 - 15.5 % 05/21/2023 9:49 AM [facility] PLATELET COUNT 466(H) 140 - 440 thou/cu mm 05/21/2023 9:49 AM [facility] MPV 9.7 6.5 - 11.0 fL 05/21/2023 9:49 AM [facility] % NEUT 72.1 % 05/21/2023 9:49 AM [facility] % LYMPH 15.1 % 05/21/2023 9:49 AM [facility] % MONO 9.2 % 05/21/2023 9:49 AM [facility] % EOS 1.3 % 05/21/2023 9:49 AM [facility] % BASO 2.3 % 05/21/2023 9:49 AM [facility] ABSOLUTE NEUTROPHILS 3.8 1.7 - 7.0 thou/cu mm 05/21/2023 9:49 AM [facility] ABSOLUTE LYMPHOCYTES 0.8(L) 0.9 - 2.9 thou/cu mm 05/21/2023 9:49 AM [facility] ABSOLUTE MONOCYTES 0.5 <0.9 thou/cu mm 05/21/2023 9:49 AM [facility] ABSOLUTE EOSINOPHILS 0.1 <0.5 thou/cu mm 05/21/2023 9:49 AM INFORMATION SPECIALIST [facility] ABSOLUTE BASOPHILS 0.1 <0.3 thou/cu mm 05/21/2023 9:49 AM INFORMATION SPECIALIST [facility] Blood BLOOD SPECIMEN / Unknown Butterfly / Unknown 05/21/2023 9:40 AM INFORMATION SPECIALIST 05/21/2023 9:43 AM INFORMATION SPECIALIST Darleen Dacosta DO HEMATOLOGY [facility] [address] [place] [address], [place] [phone] * (ABNORMAL) IMMUNOFIXATION,SERUM (05/21/2023 9:40 AM INFORMATION SPECIALIST) IGG 960.14 610.30 - 1,616.00 mg/dL 05/26/2023 5:53 PM INFORMATION SPECIALIST [facility] IGA 645.05(H) 84.50 - 499.00 mg/dL 05/26/2023 5:53 PM INFORMATION SPECIALIST [facility] IGM 49.64 35.00 - 242.00 mg/dL 05/26/2023 5:53 PM INFORMATION SPECIALIST [facility] IFIX INTERP,SERUM Immunofixation on serum shows trace complete monoclonal protein IgG kappa with no free light chains detected. The finding of a monoclonal protein may be associated with a lymphoproliferative or plasma cell disorder. Consider serum free light chains, urine protein electrophoresis and urine immunofixation to further evaluate, if not already performed. Interpreted and electronically signed by: Sheela Monroy MD 05/26/2023 5:53 PM [facility] Blood BLOOD SPECIMEN / Unknown Butterfly / Unknown 05/21/2023 9:40 AM INFORMATION SPECIALIST 05/21/2023 9:43 AM INFORMATION SPECIALIST Darleen Dacosta DO CHEMISTRY [facility] [address] [place] [address], [place] * ANCA PANEL FOR VASCULITIS (05/21/2023 9:40 AM INFORMATION SPECIALIST) ANCA Negative Negative 05/25/2023 1:57 PM INFORMATION SPECIALIST [facility] Blood BLOOD SPECIMEN / Unknown Butterfly / Unknown 05/21/2023 9:40 AM INFORMATION SPECIALIST 05/21/2023 9:43 AM INFORMATION SPECIALIST Darleen Dacosta DO SEND OUTS Performing Organization Address City/[facility] Co de Phone Number [facility] [address] [place] [address], * C3 COMPLEMENT (05/21/2023 9:40 AM INFORMATION SPECIALIST) C3 COMPLEMENT 136.97 81.10 - 157.00 mg/dL 05/25/2023 11:01 AM INFORMATION SPECIALIST [facility] Blood BLOOD SPECIMEN / Unknown Butterfly / Unknown 05/21/2023 9:40 AM INFORMATION SPECIALIST 05/21/2023 9:43 AM INFORMATION SPECIALIST Darleen Dacosta DO CHEMISTRY Performing Organization Address [facility] Phone Number [facility] [address] [place] [address], [place] * C4 COMPLEMENT (05/21/2023 9:40 AM INFORMATION SPECIALIST) C4 Complement 31.38 12.90 - 39.20 mg/dL 05/25/2023 11:01 AM INFORMATION SPECIALIST [facility] Blood BLOOD SPECIMEN / Unknown Butterfly / Unknown 05/21/2023 9:40 AM INFORMATION SPECIALIST 05/21/2023 9:43 AM INFORMATION SPECIALIST Darleen Dacosta DO CHEMISTRY Performing Organization Address [facility] de Phone Number [facility] [address] [place] [address], * (ABNORMAL) COMP METABOLIC PANEL (05/21/2023 9:40 AM INFORMATION SPECIALIST) SODIUM 138 136 - 145 mmol/L 05/21/2023 6:40 PM INFORMATION SPECIALIST [facility] POTASSIUM 4.4 3.5 - 5.1 mmol/L 05/21/2023 6:40 PM [facility] CHLORIDE 100 98 - 107 mmol/L 05/21/2023 6:40 PM [facility] CO2,TOTAL 27 22 - 29 mmol/L 05/21/2023 6:40 PM [facility] ANION GAP 11 5 - 18 05/21/2023 6:40 PM [facility] GLUCOSE 104(H) 70 - 99 mg/dL 05/21/2023 6:40 PM [facility] CALCIUM 9.9 8.8 - 10.2 mg/dL 05/21/2023 6:40 PM [facility] BUN 18 8 - 23 mg/dL 05/21/2023 6:40 PM [facility] CREATININE 0.86 0.50 - 0.90 mg/dL 05/21/2023 6:40 PM [facility] BUN/CREAT RATIO 21(H) 10 - 20 6:40 PM [facility] eGFR 68(L) >90 mL/min/1.7 3m2 05/21/2023 6:40 PM [facility] Comment:As of 2021, eG FR is calculated by the CKD-EPI creatinine equation without race adjustment. ??eGFR can be influenced by muscle mass, exercise, and diet. ??The reported eGFR is an estimation only and is only applicable if the renal function is stable. ALBUMIN 4.1 4.0 - 4.9 g/dL 05/21/2023 6:40 PM [facility] PROTEIN,TOTAL 7.3 6.0 - 8.0 g/dL 05/21/2023 6:40 PM [facility] BILIRUBIN,TOTAL 0.4 0.0 - 1.2 mg/dL 05/21/2023 6:40 PM [facility] ALK PHOSPHATASE 91 35 - 104 IU/L 05/21/2023 6:40 PM INFORMATION SPECIALIST [facility] ALT (SGPT) 15 10 - 35 IU/L 05/21/2023 6:40 PM INFORMATION SPECIALIST [facility] AST (SGOT) 32 10 - 35 IU/L 05/21/2023 6:40 PM INFORMATION SPECIALIST [facility] Blood BLOOD SPECIMEN / Unknown Butterfly / Unknown 05/21/2023 9:40 AM INFORMATION SPECIALIST 05/21/2023 9:43 AM INFORMATION SPECIALIST Darleen Dacosta DO CHEMISTRY [facility] [address] [place] [address], * SCAN-RADIOLOGY REPORT (05/16/2023 12:00 AM INFORMATION SPECIALIST) Anatomical Region Laterality Modality Other Scanner OTHER * CT ABDOMEN PELVIS STONE PROTOCOL WO (05/13/2023 10:19 AM INFORMATION SPECIALIST) Anatomical Region Laterality Modality Abdomen, Pelvis, AORTA, LIVER, SPLEEN Computed Tomography 05/13/2023 12:4 0 PM INFORMATION SPECIALIST Impressions 05/13/2023 12:40 PM INFORMATION SPECIALIST 1. No obstructive calculus or obstructive uropathy identified. Limited evaluation of the renal parenchyma without the use of intravenous contrast. Further evaluation should be obtained with a contrast enhanced CT urogram despite patient`s renal status, if there is clinical concern for an underlying renal neoplasm or if otherwise clinically warranted. 2. Interval enlargement of a fat containing left paraumbilical hernia, now measuring 5.6 cm, previously 2.0 cm on the prior CT from 08/31/2022. No herniation of bowel loops or bowel obstruction. 3. Age indeterminate mild compression fracture of the superior endplate of L1, new since prior CT from 08/31/2022. No significant stenosis of the osseous spinal canal. 4. Severe sigmoid colonic diverticulosis without evidence of acute diverticulitis. 5. Ill-defined inflammatory changes along the right gluteal cleft, without drainable abscess identified. This may reflect cellulitis, and was present on the prior CT. Direct visualization is advised. Please note that all CT scans at this facility use dose modulation, iterative reconstruction, and/or weight-based dosing when appropriate to reduce radiation dose to as low as reasonably achievable. Dictated by Sander Saucedo MD @ 05/13/2023 12:40:15 PM (Electronically Signed) Narrative 05/13/2023 12:40 PM INFORMATION SPECIALIST For Patients: ??As a result of the Cures Act, medical imaging exams and procedure reports are released immediately into your electronic medical record. ??You may view this report before your referring provider. ??If you have questions, please contact your health care provider. INDICATION: Hematuria. TECHNIQUE: Multiplanar CT examination of the abdomen and pelvis was performed without the use of intravenous contrast, stone cline protocol. COMPARISON: CT abdomen pelvis 03/13/2022. FINDINGS: Lower Chest: ??No focal consolidation. Normal heart size. No pleural effusions or pneumothorax. Liver: ??Numerous calcified granulomas. Otherwise, unremarkable. Gallbladder: ??Normal. Biliary: ??No biliary ductal dilitation. Pancreas: ??Normal. Spleen: ??Numerous calcified granulomas Adrenal Glands: ??Normal. Kidneys: No obstructive urinary calculus. No hydronephrosis. Numerous nonobstructive urinary calculi within the collecting system of both kidneys. Multi-cystic coma atrophic kidneys, the cysts appear simple attenuating in density but are poorly characterized without the use of intravenous contrast per. Ureters: Normal. No hydroureter. ?? Urinary Bladder: Normal. Bowel: ??Severe sigmoid colonic diverticulosis without associated bowel wall thickening or pericolonic fat stranding. No bowel obstruction. Moderate colonic stool burden. Nonvisualized appendix. Pelvic organs: ??No adnexal masses identified. Peritoneum: ??No ascites or pneumoperitoneum. Vessels: ??Mild atherosclerotic calcifications without focal aneurysms identified. Patency of the vasculature is not assessed on this noncontrast examination. Lymph Nodes: ??No pathologic lymphadenopathy by size criteria. Abdominal Wall/Soft Tissues: ??5.6 cm fat containing left paraumbilical hernia has significantly increased in size from the prior from 08/31/2022, where it measured 2.0 cm. There is a smaller, adjacent fat containing umbilical hernia measuring 1.3 cm. There is ill-defined fat stranding in the region of the right gluteal cleft (8:217), without drainable collections identified, this finding was present on the prior. Bones: ??Status post total right hip arthroplasty. Streak artifact from the orthopedic hardware limits evaluation of the adjacent pelvic organs. Degenerative changes of the thoracolumbar spine, with new mild age-indeterminate compression deformity of the superior endplate of L1 (approximately 33 percent central vertebral body height loss) without significant retropulsion of fragments. The osseous spinal canal remains patent. Grade 1 degenerative anterolisthesis of L4-5. No acute osseous abnormalities. Procedure Note Sander Saucedo, DO - 05/13/2023 For Patients: As a result of the Cures Act, medical imagingexams and procedure reports are released immediately into your electronicmedical record. You may view this report before your referring provider.If you have questions, please contact your health care provider. INDICATION: Hematuria. TECHNIQUE: Multiplanar CT examination of the abdomen and pelvis was performed withoutthe use of intravenous contrast, stone cline protocol. COMPARISON: CT abdomen pelvis 03/13/2022. FINDINGS: Lower Chest: No focal consolidation. Normal heart size. No pleuraleffusions or pneumothorax. Liver: Numerous calcified granulomas. Otherwise, unremarkable. Gallbladder: Normal. Biliary: No biliary ductal dilitation. Pancreas: Normal. Spleen: Numerous calcified granulomas Adrenal Glands: Normal. Kidneys: No obstructive urinary calculus. No hydronephrosis. Numerousnonobstructive urinary calculi within the collecting system of bothkidneys. Multi-cystic coma atrophic kidneys, the cysts appear simpleattenuating in density but are poorly characterized without the use ofintravenous contrast per. Ureters: Normal. No hydroureter. Urinary Bladder: Normal. Bowel: Severe sigmoid colonic diverticulosis without associated bowelwall thickening or pericolonic fat stranding. No bowel obstruction.Moderate colonic stool burden. Nonvisualized appendix. Pelvic organs: No adnexal masses identified. Peritoneum: No ascites or pneumoperitoneum. Vessels: Mild atherosclerotic calcifications without focal aneurysmsidentified. Patency of the vasculature is not assessed on this noncontrastexamination. Lymph Nodes: No pathologic lymphadenopathy by size criteria. Abdominal Wall/Soft Tissues: 5.6 cm fat containing left paraumbilicalhernia has significantly increased in size from the prior from 08/31/2022,where it measured 2.0 cm. There is a smaller, adjacent fat containingumbilical hernia measuring 1.3 cm. There is ill-defined fat stranding inthe region of the right gluteal cleft (8:217), without drainablecollections identified, this finding was present on the prior. Bones: Status post total right hip arthroplasty. Streak artifact from theorthopedic hardware limits evaluation of the adjacent pelvic organs.Degenerative changes of the thoracolumbar spine, with new mildage-indeterminate compression deformity of the superior endplate of L1(approximately 33 percent central vertebral body height loss) withoutsignificant retropulsion of fragments. The osseous spinal canal remainspatent. Grade 1 degenerative anterolisthesis of L4-5. No acute osseousabnormalities. IMPRESSION: 1. No obstructive calculus or obstructive uropathy identified. Limitedevaluation of the renal parenchyma without the use of intravenouscontrast. Further evaluation should be obtained with a contrast enhancedCT urogram despite patient`s renal status, if there is clinical concernfor an underlying renal neoplasm or if otherwise clinically warranted. 2. Interval enlargement of a fat containing left paraumbilical hernia, nowmeasuring 5.6 cm, previously 2.0 cm on the prior CT from 08/31/2022. Noherniation of bowel loops or bowel obstruction. 3. Age indeterminate mild compression fracture of the superior endplate ofL1, new since prior CT from 08/31/2022. No significant stenosis of theosseous spinal canal. 4. Severe sigmoid colonic diverticulosis without evidence of acutediverticulitis. 5. Ill-defined inflammatory changes along the right gluteal cleft, withoutdrainable abscess identified. This may reflect cellulitis, and was presenton the prior CT. Direct visualization is advised. Please note that all CT scans at this facility use dose modulation,iterative reconstruction, and/or weight-based dosing when appropriate toreduce radiation dose to as low as reasonably achievable. Dictated by Sander Saucedo MD @ 05/13/2023 12:40:15 PM (Electronically Signed) River Jacobs MD CT * (ABNORMAL) CREATININE,ISTAT (05/13/2023 10:11 AM INFORMATION SPECIALIST) CREATININE, POCT 3.50(H) 0.57 - 1.11 mg/dL 05/13/2023 10:13 AM INFORMATION SPECIALIST [facility] Comment:Caution: Patients ta morgan Hydroxyurea have falsely increased iStat Creatinine results. Verify creatinine results ordering a Creatinine (85214.2) eGFR 13(L) >90 mL/min/1.7 3m2 05/13/2023 10:13 AM INFORMATION SPECIALIST [facility] Comment:As of 2021, eG FR is calculated by the CKD-EPI creatinine equation without race adjustment. eGFR can be influenced by muscle mass, exercise, and diet. The reported eGFR is an estimation only and is only applicable if the renal function is stable. Blood BLOOD SPECIMEN / Unknown 05/13/2023 10:11 AM INFORMATION SPECIALIST 05/13/2023 10:13 AM INFORMATION SPECIALIST River Jacobs MD CHEMISTRY [facility] [address] [place] [address], from Last 3 Months Advance Directives Documents on File Type Date Recorded Patient Formulation Chemist Expl anation Healthcare Directive 10/09/2011 1:24 PM HE ALTH CARE DIRECTIVE, [facility], 11/17/10 Healthcare Directive 08/09/2007 Latest Code Status on File Code Status Date Activated Date Inactivated Comments Full Code 07/15/2021 7:49 AM 07/16/2021 5:05 PM Question Answer Comments Code Status Discussion: Not Discussed Code Status History Code Status Date Activated Date Inactivated Comments Full Code 07/15/2021 5:59 AM 07/15/2021 7:49 AM Question Answer Comments Code Status Discussion: Reviewed Preferences Full Code 03/31/2021 2:52 PM 04/03/2021 7:26 PM Question Answer Comments Code Status Discussion: Reviewed Preferences Full Code 07/17/2020 9:26 AM 07/17/2020 2:07 PM Question Answer Comments Code Status Discussion: Discussed Full Code 12/14/2019 6:26 AM 12/14/2019 12:35 PM Question Answer Comments Code Status Discussion: Discussed Care Teams Carpenter Form Relationship Specialty Start Date End Date Darleen Dacosta DO [address] [place] [id number] PCP - General Family Practice 12/23/15 Bk Sigala MD [address] [place] [address] Surgery - Urology 10/02/11 Yennifer Baird MD [address] [place] [address] Ophthalmology Surgery 11/22/12 Divya Dudley MD [address] [place] [address] Oncology Hematology and Oncology 12/06/19 Jessica Gibson NP [address] [place] [address] Oncology Nurse Practitioner - Family 12/06/19
--- OUTSIDE RECORDS SUMMARY | 2023-07-09 10:28 | XMS_ITS | Encounter Summary ---
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 Name Role Phone Unavailable Primary Care Provider Unavailabl e Reason for Referral * Consultation (Routine: Next available opening) - Pending Review Specialty Diagnoses / Procedures Referred By Conttiffanie t Referred To Contact Gastroenterology Diagnoses Abnormal CT scan Connor London MD [facility] [address] [facility] [place] [id number] Referral ID Status Reason Start Date Expiration Date V isits Requested Visits Authorized [id number] Pending Review 10/22/2022 10/22/2023 1 1 Question Answer Service: Lower Endoscopy Lower Endoscopy Type: Colonoscopy Reason for Colonoscopy: Diagnostic Sedation Concerns: No medical conditions affecting sedation Sedation Type: Moderate/Conscious Sedation Preferred Location: [facility] Scheduling Instructions: [facility] will call you to coordinate your care as prescribed by the provider. If you don? t hear from a escrow representative within 2 business days, please call . Comments Please be aware that coverage of these services is subject to the terms and limitations of your health insurance plan. Call member services at your health plan with any benefit or coverage questions. [facility] will call you to coordinate your care as prescribed by the provider. If you don? t hear from a escrow representative within 2 business days, please call . Encounter Details Date Type Department Care Team (Late st Contact Info) Description 10/22/2022 Transcribe Orders [facility] Endoscopy [place] [address] [place] [address] Connor London MD [facility] [address] [facility] [place] [id number] scan (Primary Dx) Social History Tobacco Use Types Packs/Day Years Used Date Smoking Tobacco: Never Assessed Sex and Gender Information Value Date Recorded Sex Assigned at Not on file Gender Identity Not on file Sexual Orientation Not on file documented as of this encounter Plan of Treatment Scheduled Referrals Name Type Priority Associated Diagnoses Orde r Schedule 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
--- OUTSIDE RECORDS SUMMARY | 2023-07-09 10:28 | XMS_ITS | Referral Summary ---
Author Name Unknown Organization [facility] Address [address] [place] [id number] Care Team Providers Care Transporter Radiology Name Role Phone No Ref-Primary, Physician Primary Care Provider Allergies Active Allergy Reactions Criticality Noted Date Comments Alendronate Other (See Comments) 10/23/2022 Pelvic floor dysfunction Medications Medication Sig Dispensed Refills Start Date End Date Status clopidogrel (PLAVIX) 75 MG tablet Take 75 mg by mouth daily 0 Active hydrochlorothiazide (HYDRODIURIL) 12.5 MG tablet Take 12.5 mg by mouth daily 0 Active simvastatin (ZOCOR) 20 MG tablet Take 20 mg by mouth At Bedtime 0 Active cyanocobalamin (VITAMIN B-12) 1000 MCG tablet Take 1,000 mcg by mouth daily 0 Active Ascorbic Acid (VITAMIN C) 500 MG CAPS Take 500 mg by mouth daily 0 Active aspirin (ASA) 81 MG chewable tablet Take 81 mg by mouth daily 0 Active vitamin D3 (CHOLECALCIFEROL) 50 mcg (2000 units) tablet Take 1 tablet by mouth daily 0 Active hydroxyurea (HYDREA) 500 MG capsule Take 500 mg by mouth 2 times daily 0 Active acetaminophen (TYLENOL) 500 MG tablet Take 500-1,000 mg by mouth every 6 hours as needed for mild pain 0 Active Social History Tobacco Use Types Packs/Day Years Used Date Smoking Tobacco: Never Smokeless Tobacco: Never Tobacco Cessation:Counseling Given: Not Answered Alcohol Use Standard Drinks/Week Comments Not Currently 0 (1 standard drink = 0.6 oz pur e alcohol) Adolescent Education Answer Date Record ed Getting School Help Needed Not on file 02/28 Sex and Gender Information Value Date Recorded Sex Assigned at Not on file Gender Identity Not on file Sexual Orientation Not on file Last Filed Vital Signs Vital Sign Reading Time Taken Comments Blood Pressure 131/67 10/26/2022 2:50 PM CDT Pulse 71 10/26/2022 2:50 PM CDT Temperature 36.4 ??C (97.5 ??F) 10/26/2022 12:43 PM C DT Respiratory Rate 16 10/26/2022 2:50 PM CDT Oxygen Saturation 98% 10/26/2022 2:50 PM CDT Inhaled Oxygen Concentration - - Weight 70.3 kg (155 lb) 10/26/2022 12:43 PM CDT Height 154.9 cm (5' 1) 10/26/2022 12:43 PM CDT Body Mass Index 29.29 10/26/2022 12:43 PM CDT Plan of Treatment Not on file Care Teams Transporter Radiology Relationship Specialty Start Date End Date No Ref-Primary, Physician PCP - General 10/23/22
--- OUTSIDE RECORDS SUMMARY | 2023-07-09 10:28 | XMS_ITS | Encounter Summary ---
Author Name Unknown Organization [facility] Address [address] [place] [id number] Care Team Providers Care Academic Coach Name Role Phone No Ref-Primary, Physician Primary Care Provider Reason for Visit * Auth/Cert (Routine) Specialty Diagnoses / Procedures Referred By Contac t Referred To Contact Gastroenterology Diagnoses Abnormal CT scan, gastrointestinal tract Abnormal CT scan, gastrointestinal tract [R93.3] Procedures ND COLONOSCOPY W/WO BRUSH/WASH [facility]oscopy [facility] [address] [place] [address] Referral ID Status Reason Start Date Expiration Date Visits Re quested Visits Authorized 1 1 Encounter Details Date Type Department Care Team (Late st Contact Info) Description 10/26/2022 12:03 PM CDT - 10/26/2022 3:02 PM CDT Hospital Encounter [facility] [place] [address] [place] [address] Link, Connor Pickard MD [facility] [address] [place] [address] Discharge Disposition: Home or Self Care Social History Tobacco Use Types Packs/Day Years [...] PM CDT documented as of this encounter Last Filed Vital Signs Vital Sign Reading [...] Mass Index 29.29 10/26/2022 12:43 PM CDT documented in this encounter Discharge Instructions * Discharge Instructions* Fely Pelayo RN - 10/26/2022 3:00 PM CDT The patient has received a copy of the Provation report the doctor has written and discharge instructions have been discussed with the patient and responsible adult. All questions were addressed and answered prior to patient discharge. documented in this encounter Medications at Time of Discharge Medication Sig Dispensed Refills Start Date End Date acetaminophen (TYLENOL) 500 MG tablet Take 500-1,000 mg by mouth every 6 hours as needed for mild pain 0 Ascorbic Acid (VITAMIN C) 500 MG CAPS Take 500 mg by mouth daily 0 aspirin (ASA) 81 MG chewable tablet Take 81 mg by mouth daily 0 clopidogrel (PLAVIX) 75 MG tablet Take 75 mg by mouth daily 0 cyanocobalamin (VITAMIN B-12) 1000 MCG tablet Take 1,000 mcg by mouth daily 0 hydrochlorothiazide (HYDRODIURIL) 12.5 MG tablet Take 12.5 mg by mouth daily 0 hydroxyurea (HYDREA) 500 MG capsule Take 500 mg by mouth 2 times daily 0 simvastatin (ZOCOR) 20 MG tablet Take 20 mg by mouth At Bedtime 0 vitamin D3 (CHOLECALCIFEROL) 50 mcg (2000 units) tablet Take 1 tablet by mouth daily 0 documented as of this encounter H&P Notes * Connor London MD - 10/26/2022 1:47 PM CDT Pre-Endoscopy History and Physical Dolly Chau Date of : 1940 Age: [age] year old Date of Procedure: 10/26/2022 Primary care provider: No Ref-Primary, Physician Type of Endoscopy: colonoscopy Reason for Procedure: diarrhea Type of Anesthesia Anticipated: Conscious Sedation HPI: Dolly is a 82 year old female who will be undergoing the above procedure. A history and physical has been performed. The patient's medications and allergies have been reviewed. The risks and benefits of the procedure and the sedation options and risks were discussed with the patient. All questions were answered and informed consent was obtained. There is no problem list on file for this patient. Past Medical History: Diagnosis Date ??? Cancer (H) ??? Cerebral infarction (H) ??? Hypertension ??? PONV (postoperative nausea and vomiting) Past Surgical History: Procedure Laterality Date ??? VAGINAL HYSTERECTOMY ??? PELVIC FLOOR REPAIR Relevant Family History: NONE Relevant Social History: NONE Prior to Admission medications Medication Sig Start Date End Date Taking? Authorizing Provider Ascorbic Acid (VITAMIN C) 500 MG CAPS Take 500 mg by mouth daily Yes Reported, Patient aspirin (ASA) 81 MG chewable tablet Take 81 mg by mouth daily Yes Reported, Patient clopidogrel (PLAVIX) 75 MG tablet Take 75 mg by mouth daily Yes Reported, Patient cyanocobalamin (VITAMIN B-12) 1000 MCG tablet Take 1,000 mcg by mouth daily Yes Reported, Patient hydrochlorothiazide (HYDRODIURIL) 12.5 MG tablet Take 12.5 mg by mouth daily Yes Reported, Patient hydroxyurea (HYDREA) 500 MG capsule Take 500 mg by mouth 2 times daily Yes Reported, Patient simvastatin (ZOCOR) 20 MG tablet Take 20 mg by mouth At Bedtime Yes Reported, Patient vitamin D3 (CHOLECALCIFEROL) 50 mcg (2000 units) tablet Take 1 tablet by mouth daily Yes Reported, Patient acetaminophen (TYLENOL) 500 MG tablet Take 500-1,000 mg by mouth every 6 hours as needed for mild pain Reported, Patient Allergies Allergen Reactions ??? Fosamax [Alendronate] Other (See Comments) Pelvic floor dysfunction REVIEW OF SYSTEMS: A relevant review of systems was performed and was negative PHYSICAL EXAM: BP (!) 156/62 (BP Location: Left arm) Pulse 75 Temp 97.5 ??F (36.4 ??C) Resp 12 Ht 1.549 m (5' 1) Wt 70.3 kg (155 lb) SpO2 100% BMI 29.29 kg/m?? Estimated body mass index is 29.29 kg/m?? as calculated from the following: Height as of this encounter: 1.549 m (5' 1). Weight as of this encounter: 70.3 kg (155 lb). GENERAL APPEARANCE: alert, and oriented MENTAL STATUS: alert AIRWAY EXAM: Normal RESP: lungs clear to auscultation - no rales, rhonchi or wheezes CV: regular rates and rhythm DIAGNOSTICS: Not indicated IMPRESSION ASA Class 2 - Mild systemic disease PLAN: Plan for colonoscopy. We discussed the risks, benefits and alternatives and the patient wished to proceed. Signed Electronically by: Connor London MD October 26, 2022 documented in this encounter Miscellaneous Notes * Plan of Care - Christina Aguero RN - 10/23/2022 2:18 PM CDT LM for pt asking her to call back to find out what prep would work best for her and to try to get her instructions for prep. Called [facility] and spoke to Addis. She was able to give me her daughters' numbers. Fely's number: [phone] (VM not set up) and Luna Chau's number: [phone] (LM asking for a call back). Pt was given Miralax prep instructions but note says pt has a hx of not tolerating Miralax. Need to order Golytely Extended Prep, if that is what works better. Waiting for call back from daughter (Luna) or pt. documented in this encounter Plan of Treatment Not on file documented as of this encounter Procedures Procedure Name Priority Date/Time Associated Diagnosis Comments SURGICAL PATHOLOGY EXAM Routine 10/26/2022 2:02 PM CDT COLONOSCOPY Routine 10/26/2022 12:43 PM CDT COLONOSCOPY, WITH POLYPECTOMY AND BIOPSY 10/26/2022 12:[address] scan, gastrointestinal tract Special Needs No prep type listed in notes. Pt does not have directions and doesn't have MyChart. LM asking her to call back.- MR 6/2 COLONOSCOPY 10/26/2022 12:[address] scan, gastrointestinal tract Special Needs No prep type listed in notes. Pt does not have directions and doesn't have MyChart. LM asking her to call back.- MR 6/2 documented in this encounter Results * Surgical Pathology Exam (10/26/2022 2:02 PM CDT) Case Report Surgical Pathology Report ? Case: [id number] ? Authorizing Provider: ??Link, Connor Pickard MD ?Collected: ? 10/26/2022 02:02 PM ? Ordering Location: ? [facility] ?Received: ?10/26/2022 03:17 PM ? [facility] [place] ? Pathologist: ? Ochoa Peoples MD PhD ? Specimens: ?? A) - Large Intestine, Colon ? B) - Large Intestine, Colon ? C) - Rectum, rectum biopsies eval for ibd ? 10/27/2022 1:14 PM CDT LABORATORY Final Diagnosis A(1). Colon, right side, biopsy: - Colonic mucosa with no specific histopathologic abnormalities. - Negative for dysplasia or malignancy. B(2). Colon, left side, biopsy: -Active chronic colitis. (See comment) -Colonic mucosa with architectural distortion, acute inflammation and increased chronic inflammation. -Negative for granulomas. -Negative for dysplasia or malignancy. C(3). Colon, rectum, biopsy: -Active chronic colitis. (See comment) -Colonic mucosa with architectural distortion, acute inflammation and increased chronic inflammation. -Negative for granulomas. -Negative for dysplasia or malignancy. 10/27/2022 1:14 PM [facility] Comment The differential diagnosis of an active chronic colitis pattern include not only idiopathic inflammatory bowel disease (such as Crohn's and Ulcerative colitis) but also chronic infections (such as Yersina), medications (eg. NSAIDs), chronic diverticular disease, Behcet's disease among others. 10/27/2022 1:14 PM [facility] Clinical Information Procedure: Colonoscopy COLONOSCOPY, WITH POLYPECTOMY AND BIOPSY biopsies using cold bx forceps Pre-op Diagnosis: Abnormal CT scan, gastrointestinal tract [R93.3] Post-op Diagnosis: R93.3 - Abnormal CT scan, gastrointestinal tract [ICD-10-CM] 10/27/2022 1:14 PM CDT LABORATORY Gross Description A(1). Large Intestine, Colon, : The specimen is received in formalin, labeled with the patient's name, medical record number and other identifying information and designated ? right random colon biopsies? . It consists of 7 bell soft tissue fragments ranging from 0.1-0.4 cm. Entirely submitted in one cassette. B(2). Large Intestine, Colon, : The specimen is received in formalin, labeled with the patient's name, medical record number and other identifying information and designated ? left random colon biopsies? . It consists of multiple bell soft tissue fragments ranging from 0.1-0.4 cm. Entirely submitted in one cassette. C(3). Rectum, rectum biopsies eval for ibd: The specimen is received in formalin, labeled with the patient's name, medical record number and other identifying information and designated ? rectum biopsies? . It consists of 5 bell soft tissue fragments ranging from 0.1-0.4 cm. Entirely submitted in one cassette. ([facility]) 10/27/2022 1:14 PM CDT LABORATORY Microscopic Description Microscopic examination was performed. 10/27/2022 1:14 PM CDT LABORATORY Performing Labs The technical component of this testing was completed at [facility] 10/27/2022 1:14 PM CDT LABORATORY Case Images 10/27/2022 1:14 PM CDT LABORATORY Biopsy COLON STRUCTURE / Unknown 10/26/2022 2:02 PM CDT 10/26/2022 3:17 PM CDT Specimen from unspecified body site obtained by biopsy (specimen) COLON STRUCTURE / Unknown 10/26/2022 2:04 PM CDT 10/26/2022 3:17 PM CDT Specimen from unspecified body site obtained by biopsy (specimen) RECTUM PART / Unknown 10/26/2022 2:19 PM CDT 10/26/2022 3:17 PM CDT Connor ELLIS - [facility] [address] Lab (1st floor, no room number) [place] [address], [facility] [phone] * COLONOSCOPY (10/26/2022 12:43 PM CDT) [facility] COLONOSCOPY [facility] Patient Name: Dolly Chau ?Procedure Date: 10/26/2022 12:43 PM ? Date of : 1940 ?Admit Type: Outpatient Age: 82 ? Gender: Female Attending MD: CONNOR LONDON MD, ?Total Sedation Time: _33_ minutes of continuous bedside 1:1 Instrument Name: 251 - Pediatric Colonoscope Procedure: ?Colonoscopy Indications: ?Clinically significant diarrhea of unexplained ?origin Providers: ?CONNOR LONDON MD (Doctor) Referring MD: ? CONNOR LONDON MD (Referring MD) Medicines: ?Midazolam 3 mg IV, Fentanyl 100 micrograms IV Complications: ?No immediate complications. Procedure: ?Pre-Anesthesia Assessment: ?- Prior to the procedure, a History and Physical ?was performed, and patient medications and ?allergies were reviewed. The patient is competent. ?The risks and benefits of the procedure and the ?sedation options and risks were discussed with the ?patient. All questions were answered and informed ?consent was obtained. Patient identification and ?proposed procedure were verified by the physician ?in the procedure room. Mental Status Examination: ?alert and oriented. Airway Examination: normal ?oropharyngeal airway and neck mobility. Respiratory ?Examination: clear to auscultation. CV Examination: ?regular rate and rhythm. ASA Grade Assessment: II - ?A patient with mild systemic disease. After ?reviewing the risks and benefits, the patient was ?deemed in satisfactory condition to undergo the ?procedure. The anesthesia plan was to use moderate ?sedation / analgesia (conscious sedation). ?Immediately prior to administration of medications, ?the patient was re-assessed for adequacy to receive ?sedatives. The heart rate, respiratory rate, oxygen ?saturations, blood pressure, adequacy of pulmonary ?ventilation, and response to care were monitored ?throughout the procedure. The physical status of ?the patient was re-assessed after the procedure. ?After obtaining informed consent, the colonoscope ?was passed under direct vision. Throughout the ?procedure, the patient's blood pressure, pulse, and ?oxygen saturations were monitored continuously. The ?Olympus Pediatric Colonoscope, Model #[id number]-[id number], ?[place] #251, SN#[id number] was introduced through the ?anus and advanced to the terminal ileum. The ?colonoscopy was performed without difficulty. The ?patient tolerated the procedure well. The quality ?of the bowel preparation was good. ? Findings: ? The perianal and digital rectal examinations were normal. ? The terminal ileum appeared normal. ? The transverse colon, ascending colon and cecum appeared normal. ? Biopsies were taken with a cold forceps for histology, placed in jar ? labled Left Colon. ? Diffuse inflammation characterized by submucosal hemorrhage, congestion ? (edema) and aphthous ulcerations was found in the sigmoid colon and in ? the descending colon. Biopsies were taken with a cold forceps for ? histology, placed in Jar labled Right colon. ? Inflammation characterized by deep ulcerations was found in the rectum. ? Biopsies were taken with a cold forceps for histology. ? Multiple diverticula were found in the sigmoid colon and descending ? colon. ? Impression: ? - The examined portion of the ileum was normal. ?- The transverse colon, ascending colon and cecum ?are normal. Biopsied. ?- Diffuse inflammation was found in the sigmoid ?colon and in the descending colon. Biopsied. ?- Inflammation was found in the rectum. Biopsied. Recommendation: ? - Discharge patient to home. ?- Await pathology results. ? Electonically signed by Connor London MD CONNOR LONDON MD 10/26/2022 2:38:32 PM I was physically present for the entire viewing portion of the exam. CONNOR LONDON MD Number of Addenda: 0 Note Initiated On: 10/26/2022 12:43 PM MRN: ?[id number] Procedure Date: ? 10/26/2022 12:43:47 PM Scope Withdrawal Time: 0 hours 20 minutes 15 seconds Total Procedure Duration: 0 hours 30 minutes 48 seconds Estimated Blood Loss: ? Scope In: 1:50:37 PM Scope Out: 2:21:25 PM RADIOLOGY RESULTS 10/26/2022 12:4 3 PM CDT Connor London MD PROCEDURES RADIOLOGY RESULTS documented in this encounter Visit Diagnoses Not on filedocumented in this encounter Administered Medications Inactive Administered Medications - up to 3 most recent administrations Medication Order MAR Action Action Date Dose Rate Site 0.9% sodium chloride BOLUS Intravenous, 500 mL, ONCE PRN, at 500 mL/hr, Administer over 1 Hours, other, hypotension, Starting on Wed10/26/22 at 1255, For 1 dose, Intra-procedure $New Bag 10/26/2022 1:10 PM CDT 500 mLs 500 mL/hr atropine injection 1 mg 1 mg, Intravenous, ONCE PRN, other, Bradycardia, Starting on Wed10/26/22 at 1255, For 1 dose, Intra-procedure benzocaine 20% (HURRICAINE/TOPEX) 20 % spray 0.5 mL 0.5 mL (1 spray), Mouth/Throat, ONCE PRN, sore throat, Starting on Wed10/26/22 at 1255, For 1 dose, [place] throat with 1 spray 5 minutes prior to procedure., Intra-procedure diphenhydrAMINE (BENADRYL) injection 25-50 mg 25-50 mg, Intravenous, ONCE PRN, other, for sedations, dose per provider direction., Administer over 1-2 Minutes, Starting on Wed10/26/22 at 1255, For 1 dose, Intra-procedure EPINEPHrine (Anaphylaxis) (ADRENALIN) injection (vial) 0.1 mg 0.1 mg, Submucosal, ONCE PRN, bleeding, Starting on Wed10/26/22 at 1255, For 1 dose, RN to dilute 1 mL (1 mg) of EPINEPHrine with 9 mL of 0.9% sodium chloride to equal a 0.1 mg/mL concentration. Inject 1 mL (0.1 mg) into submucosa via a sclerotherapy injection needle. Not for direct undiluted intravenous injection (1mg/ml = 1:1000). Protect from light., Intra-procedure fentaNYL (PF) (SUBLIMAZE) injection 50-100 mcg 50-100 mcg, Intravenous, EVERY 5 MIN PRN, severe pain, If inadequate response may repeat every 3 min PRN severe pain; when verbally requested by provider., Starting on Wed10/26/22 at 1255, Doses can be exceeded under direct oversight of patient by physician., Intra-procedure $Given 10/26/2022 1:53 PM CDT 50 mcg $Given 10/26/2022 1:50 PM CDT 50 mcg flumazenil (ROMAZICON) injection 0.2 mg 0.2 mg, Intravenous, EVERY 1 MIN PRN, benzodiazepine reversal, If inadequate response after 45 seconds, may repeat 0.2 mg IV every 1 minute PRN over sedation., Administer over 1 Minutes, Starting on Wed10/26/22 at 1255, Give over 15 seconds. Maximum total dose of 1 mg. Continue monitoring until discharge criteria met for a minimum of 2 hours. Irritant. Use with caution in patients on benzodiazepine therapy., Intra-procedure glucagon injection 0.5 mg 0.5 mg, Intravenous, ONCE PRN, other, gi motility, Starting on Wed10/26/22 at 1255, For 1 dose, Intra-procedure lidocaine (LMX4) cream Topical, EVERY 1 HOUR PRN, pain, with VAD insertion, Starting on Wed10/26/22 at 1337, Apply at least 30 minutes prior to VAD insertion in divided doses as needed for size of site for insertion. MAX Dose: 2.5 g (?? of 5 g tube) Do NOT give if patient has a history of allergy to any local anesthetic or any siena product. Do NOT use both lidocaine intradermal/subcutaneous injection and the lidocaine cream on the same site., Pre-procedure lidocaine 1 % 0.1-1 mL 0.1-1 mL, Other, EVERY 1 HOUR PRN, mild pain with VAD insertion, Starting on Wed10/26/22 at 1337, MAX dose 1 mL subcutaneous OR intradermal along the side of the vein in divided doses as needed for VAD insertion. Do NOT give if patient has a history of allergy to any local anesthetic or any siena product. Do NOT use both lidocaine intradermal/subcutaneous injection and the lidocaine cream on the same site., Pre-procedure midazolam (VERSED) injection 0.5-2 mg 0.5-2 mg, Intravenous, EVERY 4 MIN PRN, sedation, If inadequate response may repeat every 4 minutes PRN sedation until desired response; when verbally requested by provider., Starting on Wed10/26/22 at 1255, Doses can be exceeded under direct oversight of patient by physician. This drug may cause significant respiratory depression. Monitor respiratory status and vital signs carefully for 1 hour after each dose., Intra-procedure $Given 10/26/2022 1:57 PM CDT 1 mg $Given 10/26/2022 1:52 PM CDT 1 mg $Given 10/26/2022 1:50 PM CDT 1 mg naloxone (NARCAN) injection 0.2 mg 0.2 mg, Intravenous, EVERY 2 MIN PRN, opioid reversal, Starting on Wed10/26/22 at 1255, Administer intravenous route when available and notify provider when administered. For unintended sedation or respiratory depression if all of the below criteria are met: ~ respiratory rate LESS than or EQUAL to 8. ~SaO2 less than 92% and or/end-tidal CO2 is greater than 50. ~ the patient is receiving an opioid, has unintended sedations assessed as RASS (-3), and is currently not on mechanical ventilation. RASS scale moderate (-3) is movement or eye opening to voice but no eye contact. Patient Monitoring Once the patient has demonstrated a response to the naloxone, continue to monitor respiratory rate, depth, oxygen saturation and end-tidal CO2 (if available) every 15 minutes x 2, then every 30 minutes x 2, then every 1 hour x 1 after each naloxone dose. Consider transfer to ICU if patient respiratory parameters have not improved after 4 naloxone doses., Intra-procedure naloxone (NARCAN) injection 0.2 mg 0.2 mg, Intramuscular, EVERY 2 MIN PRN, opioid reversal, Starting on Wed10/26/22 at 1255, Administer intramuscular if an intravenous route is not available and notify provider when administered. For unintended sedation or respiratory depression if all of the below criteria are met: ~ respiratory rate LESS than or EQUAL to 8. ~SaO2 less than 92% and or/end-tidal CO2 is greater than 50. ~ the patient is receiving an opioid, has unintended sedations assessed as RASS (-3), and is currently not on mechanical ventilation. RASS scale moderate (-3) is movement or eye opening to voice but no eye contact. Patient Monitoring Once the patient has demonstrated a response to the naloxone, continue to monitor respiratory rate, depth, oxygen saturation and end-tidal CO2 (if available) every 15 minutes x 2, then every 30 minutes x 2, then every 1 hour x 1 after each naloxone dose. Consider transfer to ICU if patient respiratory parameters have not improved after 4 naloxone doses., Intra-procedure naloxone (NARCAN) injection 0.4 mg 0.4 mg, Intravenous, EVERY 2 MIN PRN, opioid reversal, Starting on Wed10/26/22 at 1255, Administer intravenous route when available and notify provider when administered. For unintended sedation or respiratory depression if all of the below criteria are met: ~ respiratory rate LESS than or EQUAL to 8. ~ SaO2 less than 92% and or/end-tidal CO2 is greater than 50. ~ the patient is receiving an opioid, has unintended sedation assessed as RASS (-4) or (-5) and patient is currently not on mechanical ventilation. RASS scale (-4) is deep sedation with no response to voice but movement or eye opening to physical stimulation. RASS scale (-5) is unarousable. Patient Monitoring Once the patient has demonstrated a response to the naloxone, continue to monitor respiratory rate, depth, oxygen saturation and end-tidal CO2 (if available) every 15 minutes x 2, then every 30 minutes x 2, then every 1 hour x 1 after each naloxone dose. Consider transfer to ICU if patient respiratory parameters have not improved after 4 naloxone doses., Intra-procedure naloxone (NARCAN) injection 0.4 mg 0.4 mg, Intramuscular, EVERY 2 MIN PRN, opioid reversal, Starting on Wed10/26/22 at 1255, Administer intramuscular if an intravenous route is not available and notify provider when administered. For unintended sedation or respiratory depression if all of the below criteria are met: ~ respiratory rate LESS than or EQUAL to 8. ~ SaO2 less than 92% and or/end-tidal CO2 is greater than 50. ~ the patient is receiving an opioid, has unintended sedation assessed as RASS (-4) or (-5) and patient is currently not on mechanical ventilation. RASS scale (-4) is deep sedation with no response to voice but movement or eye opening to physical stimulation. RASS scale (-5) is unarousable. Patient Monitoring Once the patient has demonstrated a response to the naloxone, continue to monitor respiratory rate, depth, oxygen saturation and end-tidal CO2 (if available) every 15 minutes x 2, then every 30 minutes x 2, then every 1 hour x 1 after each naloxone dose. Consider transfer to ICU if patient respiratory parameters have not improved after 4 naloxone doses., Intra-procedure ondansetron (ZOFRAN ODT) ODT tab 4 mg 4 mg, Oral, EVERY 6 HOURS PRN, nausea, vomiting, Starting on Wed10/26/22 at 1445, This is Step 1 of nausea and vomiting management. If nausea not resolved in 15 minutes, go to Step 2 prochlorperazine (COMPAZINE). Do not push through foil backing. Peel back foil and gently remove. Place on tongue immediately. Administration with liquid unnecessary With dry hands, peel back foil backing and gently remove tablet. Do not push oral disintegrating tablet through foil backing. Administer immediately on tongue and oral disintegrating tablet dissolves in seconds, then swallow with saliva. Liquid not required. ondansetron (ZOFRAN) injection 4 mg 4 mg, Intravenous, ONCE PRN, nausea, vomiting, Administer over 2-5 Minutes, Starting on Wed10/26/22 at 1338, For 1 dose, Give in ENDO pre procedure prep area. Irritant., Pre-procedure ondansetron (ZOFRAN) injection 4 mg 4 mg, Intravenous, EVERY 6 HOURS PRN, nausea, vomiting, Administer over 2-5 Minutes, Starting on Wed10/26/22 at 1445, This is Step 1 of nausea and vomiting management. If nausea not resolved in 15 minutes, go to Step 2 prochlorperazine (COMPAZINE). Irritant. prochlorperazine (COMPAZINE) injection 5 mg 5 mg, Intravenous, EVERY 6 HOURS PRN, nausea, vomiting, Administer over 1-2 Minutes, Starting on Wed10/26/22 at 1445, This is Step 2 of nausea and vomiting management. If nausea not resolved in 15-30 minutes, Notify provider. prochlorperazine (COMPAZINE) tablet 5 mg 5 mg, Oral, EVERY 6 HOURS PRN, nausea, vomiting, Starting on Wed10/26/22 at 1445, This is Step 2 of nausea and vomiting management. If nausea not resolved in 15-30 minutes, Notify provider. simethicone (MYLICON) suspension 133 mg 133 mg, Oral, ONCE PRN, other, gas bubbles, Starting on Wed10/26/22 at 1255, For 1 dose, Give via endoscope, Intra-procedure sodium chloride (PF) 0.9% PF flush 3 mL 3 mL, Intracatheter, EVERY 8 HOURS, First dose on Wed10/26/22 at 1400, to lock peripheral IV dormant line, Pre-procedure $Given 10/26/2022 1:48 PM CDT 3 mLs sodium chloride (PF) 0.9% PF flush 3 mL 3 mL, Intracatheter, EVERY 1 MIN PRN, line flush, other, to ensure patency or to lock dormant line, Starting on Wed10/26/22 at 1337, Pre-procedure sodium chloride (PF) 0.9% PF flush 3 mL 3 mL, Intravenous, EVERY 1 MIN PRN, line flush, Starting on Wed10/26/22 at 1255, Indications: for Peripheral IV flush post IV meds, Intra-procedure $Given 10/26/2022 1:54 PM CDT 3 mLs $Given 10/26/2022 1:52 PM CDT 3 mLs documented in this encounter Active and Recently Administered Medications Times are shown in CDT. Scheduled Medication Order 10/24/2022 10/25/2022 10/26/2022 sodium chloride (PF) 0.9% PF flush 3 mL 3 mL, Intracatheter, EVERY 8 HOURS, First dose on Wed10/26/22 at 1400, to lock peripheral IV dormant line, Pre-procedure 1348 ($Given - Provi liudmila: Vee Daniel, CECILE) PRN Medication Order 10/24/2022 10/25/2022 10/26/2022 0.9% sodium chloride BOLUS (COMPLETED) Intravenous, 500 mL, ONCE PRN, at 500 mL/hr, Administer over 1 Hours, other, hypotension, Starting on Wed10/26/22 at 1255, For 1 dose, Intra-procedure 1310 ($New Bag - Pro vider: Vee Daniel, CECILE) atropine injection 1 mg 1 mg, Intravenous, ONCE PRN, other, Bradycardia, Starting on Wed10/26/22 at 1255, For 1 dose, Intra-procedure benzocaine 20% (HURRICAINE/TOPEX) 20 % spray 0.5 mL 0.5 mL (1 spray), Mouth/Throat, ONCE PRN, sore throat, Starting on Wed10/26/22 at 1255, For 1 dose, [place] throat with 1 spray 5 minutes prior to procedure., Intra-procedure diphenhydrAMINE (BENADRYL) injection 25-50 mg 25-50 mg, Intravenous, ONCE PRN, other, for sedations, dose per provider direction., Administer over 1-2 Minutes, Starting on Wed10/26/22 at 1255, For 1 dose, Intra-procedure EPINEPHrine (Anaphylaxis) (ADRENALIN) injection (vial) 0.1 mg 0.1 mg, Submucosal, ONCE PRN, bleeding, Starting on Wed10/26/22 at 1255, For 1 dose, RN to dilute 1 mL (1 mg) of EPINEPHrine with 9 mL of 0.9% sodium chloride to equal a 0.1 mg/mL concentration. Inject 1 mL (0.1 mg) into submucosa via a sclerotherapy injection needle. Not for direct undiluted intravenous injection (1mg/ml = 1:1000). Protect from light., Intra-procedure fentaNYL (PF) (SUBLIMAZE) injection 50-100 mcg 50-100 mcg, Intravenous, EVERY 5 MIN PRN, severe pain, If inadequate response may repeat every 3 min PRN severe pain; when verbally requested by provider., Starting on Wed10/26/22 at 1255, Doses can be exceeded under direct oversight of patient by physician., Intra-procedure 1350 ($Given - Provi liudmila: Vee Daniel RN)1353 ($Given - Provider: Vee Daniel RN) flumazenil (ROMAZICON) injection 0.2 mg 0.2 mg, Intravenous, EVERY 1 MIN PRN, benzodiazepine reversal, If inadequate response after 45 seconds, may repeat 0.2 mg IV every 1 minute PRN over sedation., Administer over 1 Minutes, Starting on Wed10/26/22 at 1255, Give over 15 seconds. Maximum total dose of 1 mg. Continue monitoring until discharge criteria met for a minimum of 2 hours. Irritant. Use with caution in patients on benzodiazepine therapy., Intra-procedure flumazenil (ROMAZICON) injection 0.2 mg 0.2 mg, Intravenous, EVERY 1 MIN PRN, benzodiazepine reversal, over sedation, Administer over 1 Minutes, Starting on Wed10/26/22 at 1445, For 12 hours, Give over 15 seconds. If inadequate response after 45 seconds, may repeat up to a MAX total dose of 1 mg. Continue monitoring until discharge criteria are met for a minimum of 2 hours Irritant. Use with caution in patients on benzodiazepine therapy. glucagon injection 0.5 mg 0.5 mg, Intravenous, ONCE PRN, other, gi motility, Starting on Wed10/26/22 at 1255, For 1 dose, Intra-procedure lidocaine (LMX4) cream Topical, EVERY 1 HOUR PRN, pain, with VAD insertion, Starting on Wed10/26/22 at 1337, Apply at least 30 minutes prior to VAD insertion in divided doses as needed for size of site for insertion. MAX Dose: 2.5 g (?? of 5 g tube) Do NOT give if patient has a history of allergy to any local anesthetic or any siena product. Do NOT use both lidocaine intradermal/subcutaneous injection and the lidocaine cream on the same site., Pre-procedure lidocaine 1 % 0.1-1 mL 0.1-1 mL, Other, EVERY 1 HOUR PRN, mild pain with VAD insertion, Starting on Wed10/26/22 at 1337, MAX dose 1 mL subcutaneous OR intradermal along the side of the vein in divided doses as needed for VAD insertion. Do NOT give if patient has a history of allergy to any local anesthetic or any siena product. Do NOT use both lidocaine intradermal/subcutaneous injection and the lidocaine cream on the same site., Pre-procedure midazolam (VERSED) injection 0.5-2 mg 0.5-2 mg, Intravenous, EVERY 4 MIN PRN, sedation, If inadequate response may repeat every 4 minutes PRN sedation until desired response; when verbally requested by provider., Starting on Wed10/26/22 at 1255, Doses can be exceeded under direct oversight of patient by physician. This drug may cause significant respiratory depression. Monitor respiratory status and vital signs carefully for 1 hour after each dose., Intra-procedure 1350 ($Given - Provi liudmila: Vee Daniel, RN)1352 ($Given - Provider: Vee Daniel, CECILE)1357 ($Given - Provider: Vee Daniel, RN) naloxone (NARCAN) injection 0.2 mg(Linked Group 1) 0.2 mg, Intravenous, EVERY 2 MIN PRN, opioid reversal, Starting on Wed10/26/22 at 1255, Administer intravenous route when available and notify provider when administered. For unintended sedation or respiratory depression if all of the below criteria are met: ~ respiratory rate LESS than or EQUAL to 8. ~SaO2 less than 92% and or/end-tidal CO2 is greater than 50. ~ the patient is receiving an opioid, has unintended sedations assessed as RASS (-3), and is currently not on mechanical ventilation. RASS scale moderate (-3) is movement or eye opening to voice but no eye contact. Patient Monitoring Once the patient has demonstrated a response to the naloxone, continue to monitor respiratory rate, depth, oxygen saturation and end-tidal CO2 (if available) every 15 minutes x 2, then every 30 minutes x 2, then every 1 hour x 1 after each naloxone dose. Consider transfer to ICU if patient respiratory parameters have not improved after 4 naloxone doses., Intra-procedure naloxone (NARCAN) injection 0.2 mg(Linked Group 1) 0.2 mg, Intramuscular, EVERY 2 MIN PRN, opioid reversal, Starting on Wed10/26/22 at 1255, Administer intramuscular if an intravenous route is not available and notify provider when administered. For unintended sedation or respiratory depression if all of the below criteria are met: ~ respiratory rate LESS than or EQUAL to 8. ~SaO2 less than 92% and or/end-tidal CO2 is greater than 50. ~ the patient is receiving an opioid, has unintended sedations assessed as RASS (-3), and is currently not on mechanical ventilation. RASS scale moderate (-3) is movement or eye opening to voice but no eye contact. Patient Monitoring Once the patient has demonstrated a response to the naloxone, continue to monitor respiratory rate, depth, oxygen saturation and end-tidal CO2 (if available) every 15 minutes x 2, then every 30 minutes x 2, then every 1 hour x 1 after each naloxone dose. Consider transfer to ICU if patient respiratory parameters have not improved after 4 naloxone doses., Intra-procedure naloxone (NARCAN) injection 0.4 mg(Linked Group 1) 0.4 mg, Intravenous, EVERY 2 MIN PRN, opioid reversal, Starting on Wed10/26/22 at 1255, Administer intravenous route when available and notify provider when administered. For unintended sedation or respiratory depression if all of the below criteria are met: ~ respiratory rate LESS than or EQUAL to 8. ~ SaO2 less than 92% and or/end-tidal CO2 is greater than 50. ~ the patient is receiving an opioid, has unintended sedation assessed as RASS (-4) or (-5) and patient is currently not on mechanical ventilation. RASS scale (-4) is deep sedation with no response to voice but movement or eye opening to physical stimulation. RASS scale (-5) is unarousable. Patient Monitoring Once the patient has demonstrated a response to the naloxone, continue to monitor respiratory rate, depth, oxygen saturation and end-tidal CO2 (if available) every 15 minutes x 2, then every 30 minutes x 2, then every 1 hour x 1 after each naloxone dose. Consider transfer to ICU if patient respiratory parameters have not improved after 4 naloxone doses., Intra-procedure naloxone (NARCAN) injection 0.4 mg(Linked Group 1) 0.4 mg, Intramuscular, EVERY 2 MIN PRN, opioid reversal, Starting on Wed10/26/22 at 1255, Administer intramuscular if an intravenous route is not available and notify provider when administered. For unintended sedation or respiratory depression if all of the below criteria are met: ~ respiratory rate LESS than or EQUAL to 8. ~ SaO2 less than 92% and or/end-tidal CO2 is greater than 50. ~ the patient is receiving an opioid, has unintended sedation assessed as RASS (-4) or (-5) and patient is currently not on mechanical ventilation. RASS scale (-4) is deep sedation with no response to voice but movement or eye opening to physical stimulation. RASS scale (-5) is unarousable. Patient Monitoring Once the patient has demonstrated a response to the naloxone, continue to monitor respiratory rate, depth, oxygen saturation and end-tidal CO2 (if available) every 15 minutes x 2, then every 30 minutes x 2, then every 1 hour x 1 after each naloxone dose. Consider transfer to ICU if patient respiratory parameters have not improved after 4 naloxone doses., Intra-procedure ondansetron (ZOFRAN ODT) ODT tab 4 mg(Linked Group 2) 4 mg, Oral, EVERY 6 HOURS PRN, nausea, vomiting, Starting on Wed10/26/22 at 1445, This is Step 1 of nausea and vomiting management. If nausea not resolved in 15 minutes, go to Step 2 prochlorperazine (COMPAZINE). Do not push through foil backing. Peel back foil and gently remove. Place on tongue immediately. Administration with liquid unnecessary With dry hands, peel back foil backing and gently remove tablet. Do not push oral disintegrating tablet through foil backing. Administer immediately on tongue and oral disintegrating tablet dissolves in seconds, then swallow with saliva. Liquid not required. ondansetron (ZOFRAN) injection 4 mg 4 mg, Intravenous, ONCE PRN, nausea, vomiting, Administer over 2-5 Minutes, Starting on Wed10/26/22 at 1338, For 1 dose, Give in ENDO pre procedure prep area. Irritant., Pre-procedure ondansetron (ZOFRAN) injection 4 mg(Linked Group 2) 4 mg, Intravenous, EVERY 6 HOURS PRN, nausea, vomiting, Administer over 2-5 Minutes, Starting on Wed10/26/22 at 1445, This is Step 1 of nausea and vomiting management. If nausea not resolved in 15 minutes, go to Step 2 prochlorperazine (COMPAZINE). Irritant. prochlorperazine (COMPAZINE) injection 5 mg(Linked Group 3) 5 mg, Intravenous, EVERY 6 HOURS PRN, nausea, vomiting, Administer over 1-2 Minutes, Starting on Wed10/26/22 at 1445, This is Step 2 of nausea and vomiting management. If nausea not resolved in 15-30 minutes, Notify provider. prochlorperazine (COMPAZINE) tablet 5 mg(Linked Group 3) 5 mg, Oral, EVERY 6 HOURS PRN, nausea, vomiting, Starting on Wed10/26/22 at 1445, This is Step 2 of nausea and vomiting management. If nausea not resolved in 15-30 minutes, Notify provider. simethicone (MYLICON) suspension 133 mg 133 mg, Oral, ONCE PRN, other, gas bubbles, Starting on Wed10/26/22 at 1255, For 1 dose, Give via endoscope, Intra-procedure sodium chloride (PF) 0.9% PF flush 3 mL 3 mL, Intracatheter, EVERY 1 MIN PRN, line flush, other, to ensure patency or to lock dormant line, Starting on Wed10/26/22 at 1337, Pre-procedure sodium chloride (PF) 0.9% PF flush 3 mL 3 mL, Intravenous, EVERY 1 MIN PRN, line flush, Starting on Wed10/26/22 at 1255, Indications: for Peripheral IV flush post IV meds, Intra-procedure 1352 ($Given - Provi liudmila: Vee Daniel, CECILE)1354 ($Given - Provider: Vee Daniel, CECILE) Linked Groups Order Group 1: naloxone (NARCAN) injection 0.2 mgJump to med 0.2 mg, Intravenous, EVERY 2 MIN PRN, opioid reversal, Starting on Wed10/26/22 at 1255, Administer intravenous route when available and notify provider when administered. For unintended sedation or respiratory depression if all of the below criteria are met: ~ respiratory rate LESS than or EQUAL to 8. ~SaO2 less than 92% and or/end-tidal CO2 is greater than 50. ~ the patient is receiving an opioid, has unintended sedations assessed as RASS (-3), and is currently not on mechanical ventilation. RASS scale moderate (-3) is movement or eye opening to voice but no eye contact. Patient Monitoring Once the patient has demonstrated a response to the naloxone, continue to monitor respiratory rate, depth, oxygen saturation and end-tidal CO2 (if available) every 15 minutes x 2, then every 30 minutes x 2, then every 1 hour x 1 after each naloxone dose. Consider transfer to ICU if patient respiratory parameters have not improved after 4 naloxone doses., Intra- procedure Or naloxone (NARCAN) injection 0.4 mgJump to med 0.4 mg, Intravenous, EVERY 2 MIN PRN, opioid reversal, Starting on Wed10/26/22 at 1255, Administer intravenous route when available and notify provider when administered. For unintended sedation or respiratory depression if all of the below criteria are met: ~ respiratory rate LESS than or EQUAL to 8. ~ SaO2 less than 92% and or/end-tidal CO2 is greater than 50. ~ the patient is receiving an opioid, has unintended sedation assessed as RASS (-4) or (-5) and patient is currently not on mechanical ventilation. RASS scale (-4) is deep sedation with no response to voice but movement or eye opening to physical stimulation. RASS scale (-5) is unarousable. Patient Monitoring Once the patient has demonstrated a response to the naloxone, continue to monitor respiratory rate, depth, oxygen saturation and end-tidal CO2 (if available) every 15 minutes x 2, then every 30 minutes x 2, then every 1 hour x 1 after each naloxone dose. Consider transfer to ICU if patient respiratory parameters have not improved after 4 naloxone doses., Intra-procedure Or naloxone (NARCAN) injection 0.2 mgJump to med 0.2 mg, Intramuscular, EVERY 2 MIN PRN, opioid reversal, Starting on Wed10/26/22 at 1255, Administer intramuscular if an intravenous route is not available and notify provider when administered. For unintended sedation or respiratory depression if all of the below criteria are met: ~ respiratory rate LESS than or EQUAL to 8. ~SaO2 less than 92% and or/end-tidal CO2 is greater than 50. ~ the patient is receiving an opioid, has unintended sedations assessed as RASS (-3), and is currently not on mechanical ventilation. RASS scale moderate (-3) is movement or eye opening to voice but no eye contact. Patient Monitoring Once the patient has demonstrated a response to the naloxone, continue to monitor respiratory rate, depth, oxygen saturation and end-tidal CO2 (if available) every 15 minutes x 2, then every 30 minutes x 2, then every 1 hour x 1 after each naloxone dose. Consider transfer to ICU if patient respiratory parameters have not improved after 4 naloxone doses., Intra- procedure Or naloxone (NARCAN) injection 0.4 mgJump to med 0.4 mg, Intramuscular, EVERY 2 MIN PRN, opioid reversal, Starting on Wed10/26/22 at 1255, Administer intramuscular if an intravenous route is not available and notify provider when administered. For unintended sedation or respiratory depression if all of the below criteria are met: ~ respiratory rate LESS than or EQUAL to 8. ~ SaO2 less than 92% and or/end-tidal CO2 is greater than 50. ~ the patient is receiving an opioid, has unintended sedation assessed as RASS (-4) or (-5) and patient is currently not on mechanical ventilation. RASS scale (-4) is deep sedation with no response to voice but movement or eye opening to physical stimulation. RASS scale (-5) is unarousable. Patient Monitoring Once the patient has demonstrated a response to the naloxone, continue to monitor respiratory rate, depth, oxygen saturation and end-tidal CO2 (if available) every 15 minutes x 2, then every 30 minutes x 2, then every 1 hour x 1 after each naloxone dose. Consider transfer to ICU if patient respiratory parameters have not improved after 4 naloxone doses., Intra- procedure Group 2: ondansetron (ZOFRAN ODT) ODT tab 4 mgJump to med 4 mg, Oral, EVERY 6 HOURS PRN, nausea, vomiting, Starting on Wed10/26/22 at 1445, This is Step 1 of nausea and vomiting management. If nausea not resolved in 15 minutes, go to Step 2 prochlorperazine (COMPAZINE). Do not push through foil backing. Peel back foil and gently remove. Place on tongue immediately. Administration with liquid unnecessary With dry hands, peel back foil backing and gently remove tablet. Do not push oral disintegrating tablet through foil backing. Administer immediately on tongue and oral disintegrating tablet dissolves in seconds, then swallow with saliva. Liquid not required. Or ondansetron (ZOFRAN) injection 4 mgJump to med 4 mg, Intravenous, EVERY 6 HOURS PRN, nausea, vomiting, Administer over 2-5 Minutes, Starting on Wed10/26/22 at 1445, This is Step 1 of nausea and vomiting management. If nausea not resolved in 15 minutes, go to Step 2 prochlorperazine (COMPAZINE). Irritant. Group 3: prochlorperazine (COMPAZINE) injection 5 mgJump to med 5 mg, Intravenous, EVERY 6 HOURS PRN, nausea, vomiting, Administer over 1-2 Minutes, Starting on Wed10/26/22 at 1445, This is Step 2 of nausea and vomiting management. If nausea not resolved in 15-30 minutes, Notify provider. Or prochlorperazine (COMPAZINE) tablet 5 mgJump to med 5 mg, Oral, EVERY 6 HOURS PRN, nausea, vomiting, Starting on 10/26/22 at 1445, This is Step 2 of nausea and vomiting management. If nausea not resolved in 15-30 minutes, Notify provider. documented in this encounter Care Teams Academic Coach Relationship Specialty Start Date End Date No Ref-Primary, Physician PCP - General 10/23/22 documented as of this encounter
--- OUTSIDE RECORDS SUMMARY | 2023-07-09 10:28 | XMS_ITS | Encounter Summary ---
Author Name Unknown Organization [facility] Address [address] [place] [address] Care Team Providers Care Electrical Lineworker Name Role Phone No Ref-Primary, Physician Primary Care Provider Reason for Visit * Auth/Cert (Routine) Specialty Diagnoses / Procedures Referred By Contac t Referred To Contact Gastroenterology Diagnoses Abnormal CT scan, gastrointestinal tract Abnormal CT scan, gastrointestinal tract [R93.3] Procedures SC COLONOSCOPY W/WO BRUSH/WASH Colonoscopy Endoscopy [address] [place] [address] Referral ID Status Reason Start Date Expiration Date Visits Re quested Visits Authorized [id number] 1 1 Encounter Details Date Type Department Care Team (Late st Contact Info) Description 10/26/2022 1:05 PM CDT - 10/26/2022 1:55 PM CDT Surgery [facility] End[facility] [place] [address] [place] [address] Connor London MD [facility] [address] [place] [address] Colonoscopy Surgery Details Date/Time Status Location OR Service Patient Class Case Class Case Type Trauma Case? 10/26/22 1:05 PM Posted GI GI B Gastroenterology Outpatient Panel 1 Procedure LRB Anes Op Region Wound Class Comments Colonoscopy N/A Moderate Sedation Rectum II-Clean C ontaminated COLONOSCOPY, WITH POLYPECTOMY AND BIOPSY biopsies using cold bx forceps N/A Rectum II-Clean Contaminated Surgeon Surgeon Role Service Panel Connor London MD Primary Gastroenterology 1 Special Needs No prep type listed in notes. Pt does not have directions and doesn't have MyChart. LM asking her to call back.- MR 6/2 documented in this encounter Social History Tobacco Use Types Packs/Day Years [...] Sign Reading Time Taken Comments Blood Pressure 141/97 10/26/2022 1:55 PM CDT Pulse 82 10/26/2022 1:55 PM CDT Temperature 36.4 ??C (97.5 ??F) 10/26/2022 12:43 PM C DT Respiratory Rate 14 10/26/2022 1:55 PM CDT Oxygen Saturation 100% 10/26/2022 1:55 PM CDT Inhaled Oxygen Concentration - - [...] to get her instructions for prep. Called [facility] and spoke to Addis. She was able to give me her daughters' numbers. Fely's number: [phone] (VM not set up) and Luna Chau's number: [phone] (LM asking for a call back). Pt [...] Case Report Surgical Pathology Report ? Case: [id number] ? Authorizing Provider: ??Connor London MD ?Collected: ? 10/26/2022 02:02 PM ? Ordering Location: ? [facility] ?Received: ?10/26/2022 03:17 PM ? [place] ? Pathologist: ? Ochoa Peoples MD PhD [...] for dysplasia or malignancy. 10/27/2022 1:14 PM CDT LABORATORY Comment The differential diagnosis of an active chronic colitis pattern include not only idiopathic inflammatory bowel disease (such as Crohn's and Ulcerative colitis) but also chronic infections (such as Yersina), medications (eg. NSAIDs), chronic diverticular disease, Behcet's disease among others. 10/27/2022 1:14 PM CDT LABORATORY Clinical Information Procedure: Colonoscopy COLONOSCOPY, WITH [...] submitted in one cassette. ([facility] ELENA [facility]) 10/27/2022 1:14 PM CDT LABORATORY Microscopic Description Microscopic examination was performed. 10/27/2022 1:14 PM T LABORATORY Performing Labs The technical component of this testing was completed at [facility] 10/27/2022 1:14 PM CDT LABORATORY [...] 3:17 PM CDT Connor ELLIS - CICI [facility] Organization Address City/State/ZIP Co de Phone Number [facility] [address] [facility] (1st floor, no room number) [place] [address], [facility] [phone] * COLONOSCOPY (10/26/2022 12:43 PM CDT) [facility] Signature COLONOSCOPY [facility] Patient Name: Dolly Bliss Chau ?Procedure Date: 10/26/2022 12:43 PM ? [...] monitored continuously. The ?Olympus Pediatric Colonoscope, Model #[id number]-PR927D, ?Endora #251, SN#[id number] was introduced through the ?anus and advanced [...] Note Initiated On: 10/26/2022 12:43 PM MRN: ?[id number] Procedure Date: ? 10/26/2022 12:43:47 PM Scope Withdrawal Time: 0 hours 20 minutes 15 seconds Total Procedure Duration: 0 hours 30 minutes 48 seconds Estimated Blood Loss: ? Scope In: 1:50:37 PM Scope Out: 2:21:25 PM RADIOLOGY RESULTS 10/26/2022 12:4 3 PM CDT Connor London MD PROCEDURES RADIOLOGY RESULTS documented in this encounter Visit Diagnoses Diagnosis Abnormal CT scan, gastrointestinal tract Nonspecific (abnormal) findings on radiological and other examination of gastrointestinal tract documented in this encounter Administered Medications Inactive Administered [...] on Wed10/26/22 at 1255, For 1 dose, Scurry throat with 1 spray 5 minutes prior [...] 1348 ($Given - Provi liudmila: Vee Daniel, RN) PRN Medication Order 10/24/2022 10/25/2022 10/26/2022 0.9% [...] on Wed10/26/22 at 1255, For 1 dose, Scurry throat with 1 spray 5 minutes prior [...] 1350 ($Given - Provi liudmila: Vee Daniel RN)1352 ($Given - Provider: Vee Daniel RN)1357 ($Given - Provider: Vee Daniel, CECILE) naloxone (NARCAN) injection 0.2 mg(Linked Group 1) [...] Intra-procedure 1352 ($Given - Provi liudmila: Vee Daniel RN)1354 ($Given - Provider: Vee Daniel RN) Linked Groups Order Group 1: naloxone (NARCAN) [...] provider. documented in this encounter Care Teams Electrical Lineworker Relationship Specialty Start Date End Date No Ref-Primary, Physician PCP - General 10/23/22 documented as of this encounter
--- OUTSIDE RECORDS SUMMARY | 2023-07-09 10:28 | XMS_ITS | Clinical Summary ---
Author Name Unknown Organization [facility] Address [address] [place] [address] Care Team Providers Care Collection Systems Modeler Name Role Phone No Ref-Primary, Physician Primary [...] as needed for mild pain 0 Active Family History Medical History Relation Comments Colon Cancer No family hx of Social History Tobacco Use Types Packs/Day Years [...] 10/26/2022 12:43 PM CDT Plan of Treatment Health Maintenance Due Date Last Done Comments ADVANCE CARE PLANNING 1940 ANNUAL REVIEW OF HM ORDERS 1941 DEXA 1941 LIPID 1941 RSV VACCINE ( & 60+) (1 - 1-dose 60+ series) 2001 FALL RISK ASSESSMENT 2006 MEDICARE ANNUAL WELLNESS VISIT 2006 ZOSTER IMMUNIZATION (1 of 2) 06/06/2007 04/11/2007 COVID-19 Vaccine ( season) 2023 02/12/2022, 09/08/2021, 02/12/2021, Additional history exists INFLUENZA VACCINE (#1) 2023 , 02/05/2021, 02/14/2020, Additional history exists PHQ-2 (once per calendar year) 2023 DTAP/TDAP/TD IMMUNIZATION (3 - Td or Tdap) 08/31/2029 09/01/2019, 10/02/2011, 05/24/2001 Pneumococcal Vaccine: 65+ Years Completed 02/18/2015, 08/30/2007 HPV IMMUNIZATION Aged Out No longer e ligible based on patient's age to complete this topic IPV IMMUNIZATION Aged Out No longer e ligible based on patient's age to complete this topic MENINGITIS IMMUNIZATION Aged Out No l onger eligible based on patient's age to complete this topic RSV MONOCLONAL ANTIBODY Aged Out No l onger eligible based on patient's age to complete this topic Care Teams Collection Systems Modeler Relationship Specialty Start Date End Date No Ref-Primary, Physician PCP - General 10/23/22
--- OUTSIDE RECORDS SUMMARY | 2023-07-09 10:28 | XMS_ITS | Encounter Summary ---
Author Name Unknown Organization [facility] Address [address] [place] [address] Care Team Providers Care Nuclear Medical Technologist Name Role Phone Unavailable Primary Care Provider Unavailabl e Reason for Visit * Reason Onset Date Comments Procedure 10/22/2022 COLONOSCOPY Encounter Details Date Type Department Care Team (Late st Contact Info) Description 10/22/[address] [facility] [address] [place] [address] None Procedure (COLONOSCOPY) Social History Tobacco Use Types Packs/Day Years Used Date Smoking Tobacco: Never Assessed Sex and Gender Information Value Date Recorded Sex Assigned at Not on file Gender Identity Not on file Sexual Orientation Not on file documented as of this encounter Miscellaneous Notes * Telephone Encounter - Gladis Howard - 10/22/2022 1:43 PM CDT Screening Questions BLUE KIND OF PREP RED LOCATION [review exclusion criteria] GREEN SEDATION TYPE Y Are you active on Compass? JOSH LINK Ordering/Referring Provider? MEDICA What type of coverage do you have? N Have you had a positive covid test in the last 14 days? 30.2 1. BMI [BMI 40+ - review exclusion criteria& smart-phrase document] Y 2. Are you able to give consent for your medical care? [IF NO,HAT PRESSER] N 3. Are you taking any prescription pain medications on a routine schedule (ex narcotics: oxycodone, roxicodone, oxycontin, and percocet)? [clinical rehabilitation aide] 3a. EXTENDED PREP What kind of prescription? N 4. Do you have any chemical dependencies such as alcohol, street drugs, or methadone? If yes 3- 5 , please schedule with MAC sedation. IF YES TO ANY 6 - 10 - HOSPITAL SETTING ONLY. N 6. Do you need assistance transferring? N 7. Have you had a heart or lung transplant? N 8. Are you currently on dialysis? N 9. Do you use daily home oxygen? N 10. Do you take nitroglycerin? 10a. If yes, how often? N 11. Are you currently ? 11a. If yes, how many weeks? [ Greater than 12 weeks, OR NEEDED] N 12. Do you have Pulmonary Hypertension? *NEED PAC APPT AT [facility] w/ MAC* Y, DEFIB, HAS RAN OUT OF BATTERY 13. [review exclusion criteria] Do you have any implantable devices in your body (pacemaker, defib, LVAD)? N 14. In the past 6 months, have you had any heart related issues including cardiomyopathy or heartattack? 14a. If yes, did it require cardiac stenting if so when? N 15. Have you had a stroke or Transient ischemic attack (TIA - aka ???mini stroke?? ) within 6 months? N 16. Do you have mod to severe Obstructive Sleep Apnea? [Hospital only] N 17. Do you have SEVERE AND UNCONTROLLED asthma? *NEED PAC APPT AT [facility] w/[facility]* 18.Do you take blood thinners? Yes Are you taking Effient/Prasugrel? No, you must contact your prescribing provider for direction on holding or bridging with a different medication. N 19. Do you take any of the following medications? NPhentermine NOzempic NWegovy (Semaglutide) 19a. If yes, Hold for 7 days before procedure. Please consult your prescribing provider if you have questions about holding this medication. N 20. Do you have chronic kidney disease? N 21. Do you have a diagnosis of diabetes? N 22. On a regular basis do you go 3-5 days between bowel movements? 23. Preferred [facility] for Pre Prescription [facility] - [address] [place] [address] - CLOSING REMINDERS - ??? You will receive a call from a Nurse to review instructions and health history. This assessmentmust be completed prior to your procedure. Failure to complete the Nurse assessment may result in the procedure being cancelled. ??? On the day of your procedure, please designatean adult(s) who can drive you home stay with you for the next 24 hours. The medicines used in the exam will make you sleepy. You will not be able to drive. ??? You cannot take public transportation, ride share services, or non-medical taxi service withouta responsible caregiver. Medical transport services are allowed with the requirement that a responsible caregiver will receive you at your destination. We require that drivers and caregivers are confirmed prior to your procedure. - SCHEDULING DETAILS - YES & DEFIB Hospital Setting Required & If yes, what is the exclusion? LINK Surgeon 10/26 Date of Procedure Lower Endoscopy [Colonoscopy] Type of Procedure Scheduled [facility] Location MIRALAX GATORADE WITHOUT MAGNEISUM CITRATE Which Colonoscopy Prep was Sent? MODERATE Sedation Type N PAC / Pre-op Required Patient states Miralax prep made her sick and request for alternative prep. Patient states she is on Plavix as well. * Telephone Encounter - Gladis Howard - 10/22/2022 1:28 PM CDT Connected with [facility], per email received Dr London is in OR on 10/26 from 8am to 1pm. Colonoscopy can be added onto 1pm if okay with Dr London in room GI C. Left for call back to coordinate with Melvin ([facility] [phone] ext [phone]), Addis ([facility] [phone] ext [phone]) and Aidee ([facility] [phone] ext [phone]) If [facility] rep calls back please inquire if instructions will be sent by [facility] or if needs to be sent by [facility]. No orders in patient chart, please request for order as well. documented in this encounter Plan of Treatment Not on file documented as of this encounter Visit Diagnoses Not on filedocumented in this encounter
--- OUTSIDE RECORDS SUMMARY | 2023-07-09 10:29 | XMS_ITS | Encounter Summary ---
Author Name Unknown Organization [facility] Address [address] [facility] [address] [place] [address] Care Team Providers Care C Iron Worker Name Role Phone KeenaDarleen mora Primary Care Provider Unav ailable Encounter Details Date Type Department Care Team Description 05/25/2023 Documentation Only [facility] [address] [place] [address] Iggy Mercer [address] [place] [address] Social History Tobacco Use Types Packs/Day Years Used Date Smoking Tobacco: Never Assessed Sex and Gender Information Value Date Recorded Sex Assigned at Not on file Gender Identity Not on file Sexual Orientation Not on file documented as of this encounter Progress Notes * Iggy Mercer - 05/25/2023 1:27 PM CST In pateints chart to database labs documented in this encounter Plan of Treatment Not on file documented as of this encounter Procedures Procedure Name Priority Date/Time Associated Diagnosis Comments COMPREHENSIVE METABOLIC PANEL (CMP) (EXTERNAL LAB ENTRY) Routine 05/21/2023 URINALYSIS (EXT LAB ENTRY) Routine 05/21/2023 CBC Routine 05/21/2023 COMPREHENSIVE METABOLIC PANEL (CMP) (EXTERNAL LAB ENTRY) Routine 03/16/2023 CBC (INCLUDES DIFF/PLT) (EXTERNAL LAB ENTRY) Routine 03/16/2023 CBC Routine 01/04/2023 documented in this encounter Results * (ABNORMAL) Comprehensive Metabolic Panel (CMP) (05/21/2023) Glucose 104(H) mg/dL [facility] BUN 18 mg/dL [facility] Creatinine 0.86 mg/dL [facility] Sodium 138 mEq/L [facility] Potassium 4.4 mEq/L [facility] Chloride 100 [facility] Carbon Dioxide 27 mmol/L [facility] Calcium 9.9 mg/dL [facility] Albumin (Blood) 4.1 g/dL [facility] AST (SGOT) 32 U/L [facility] ALT (SGPT) 15 U/L [facility] Alkaline Phosphatase 91 U/L [facility] Total Bilirubin 0.4 MG/DL [facility] eGFR 68(L) [facility] Total Protein, Serum 7.3 [facility] Anion Gap 11 [facility] Blood 05/21/2023 Historical Provider LAB BLOOD ORDERAB LES [facility] * (ABNORMAL) CBC (05/21/2023) WBC 5.3 K/uL [facility] Red Blood Cell Count 3.60(L) [facility] Hemoglobin 12.9 g/dL [facility] Hematocrit 40.8 % [facility] MCV 113(H) [facility] MCH 35.8(H) [facility] MCHC 31.6(L) [facility] RDW 17.2(H) [facility] Platelet Count 466(H) [facility] MPV 9.7 [facility] Absolute Neutrophils 3.8 [facility] Absolute Lymphocytes 0.8(L) [facility] Absolute Monocytes 0.5 [facility] Absolute Eosinophils 0.1 [facility] Absolute Basophils 0.1 [facility] Neutrophils 72.1 K/uL [facility] Lymphocytes 15.1 [facility] Monocytes 9.2 [facility] Eosinophils 1.3 [facility] Basophils 2.3 [facility] Blood (Blood, Venous) 05/21/2023 Historical Provider MD LAB BLOOD ORDERAB LES Performing Organization Address [facility] de Phone Number [facility] * (ABNORMAL) Urinalysis (05/21/2023) Color, Urine red(A) [facility] Clarity, Urine cloudy(A) [facility] Urine Specific [place] [facility] Comment:Unable to interpret due to interfering substance Abnormal pH Urine [facility] Comment:Unable to interpret due to interfering substance Abnormal Leukocyte Esterase UA [facility] Comment:Unable to interpret due to interfering substance Abnormal Nitrite, Urine [facility] Comment:Unable to interpret due to interfering substance Abnormal Protein, Urine [facility] Comment:Unable to interpret due to interfering substance Abnormal Glucose, Urine [facility] Comment:Unable to interpret due to interfering substance Abnormal Ketones, Urine [facility] Comment:Unable to interpret due to interfering substance Abnormal Urobilinogen, Urine [facility] Comment:Unable to interpret due to interfering substance Abnormal Bilirubin, Urine [facility] Comment:Unable to interpret due to interfering substance Abnormal Blood, Urine [facility] Comment:Unable to interpret due to interfering substance Abnormal WBC, Urine 6-10(A) [facility] RBC, Urine >100(A) [facility] Bacteria, Urine few [facility] Epithelial Cells, (Ext Lab Entry) few [facility] Urine 05/21/2023 Historical Provider MD LAB URINE ORDERAB LES Performing Organization Address [facility] Phone Number [facility] * (ABNORMAL) CBC (Includes Diff/Plt) (External Lab) (03/16/2023) WBC 8.9 K/uL [facility] Red Blood Cell Count 3.77(L) [facility] Hemoglobin 13.1 g/dL [facility] Hematocrit 43.1 % [facility] MCV 114(H) [facility] MCH 34.7(H) [facility] MCHC 30.4(L) [facility] RDW 17.9(H) [facility] Platelet Count 196 [facility] MPV 10.0 [facility] Blood 03/16/2023 Historical Provider MD LAB BLOOD ORDERAB LES Performing Organization Address [facility] Co de Phone Number [facility] * (ABNORMAL) Comprehensive Metabolic Panel (CMP) (03/16/2023) Glucose 92 mg/dL [facility] BUN 23 mg/dL [facility] Creatinine 0.95(H) mg/dL [facility] Sodium 138 mEq/L [facility] Potassium 4.5 mEq/L [facility] Chloride 99 [facility] Carbon Dioxide 30(H) mmol/L [facility] Calcium 10.4(H) mg/dL [facility] Albumin (Blood) 3.8(L) g/dL [facility] AST (SGOT) 21 U/L [facility] ALT (SGPT) 19 U/L [facility] Alkaline Phosphatase 74 U/L [facility] Total Bilirubin 0.5 MG/DL [facility] eGFR 60(L) [facility] Total Protein, Serum 6.9 [facility] Anion Gap 9 [facility] Blood 03/16/2023 Historical Provider MD LAB BLOOD ORDERAB LES Performing Organization Address City/[facility]/ZIP Co de Phone Number [facility] * (ABNORMAL) CBC (01/04/2023) WBC 5.5 K/uL [facility] Red Blood Cell Count 3.88(L) [facility] Hemoglobin 14.1 g/dL [facility] Hematocrit 42.3 % [facility] MCV 109(H) [facility] MCH 36.3(H) [facility] MCHC 33.3 [facility] RDW 15.9(H) [facility] Platelet Count 176 [facility] MPV 10.6 [facility] Blood (Blood, Venous) 01/04/2023 Historical Provider MD LAB BLOOD ORDERAB LES [facility] documented in this encounter Visit Diagnoses Not on filedocumented in this encounter Care Teams C Iron Worker Relationship Specialty Start Date End Date Darleen Dacosta DO [address] [place] [address] PCP - General Family Medicine 05/13/23 documented as of this encounter
--- OUTSIDE RECORDS SUMMARY | 2023-07-09 10:29 | XMS_ITS | Encounter Summary ---
Author Name Unknown Organization [facility] Address [address] [place] [address] Care Team Providers Care Manager Statistics Name Role Phone Darleen Dacosta Primary Care Provider Unav ailable Encounter Details Date Type Department Care Team Description 06/23/2023 Orders Only [facility] [address] [place] [address] Elisa Chung, CECILE [address] [place] [address] Serum creatinine above reference range; Gross hematuria Social History Tobacco Use Types Packs/Day Years [...] Procedure Name Priority Date/Time Associated Diagnosis Comments PROTEIN / CREATININE RATIO, URINE Routine 06/18/2023 Serum creatinine above reference range Gross hematuria URINE ALBUMIN / CREATININE RATIO Routine 06/18/2023 Serum creatinine above reference range Gross hematuria documented in this encounter Results * (ABNORMAL) Urine Albumin / Creatinine Ratio (06/18/2023) Albumin, Urine 152 mg/dL [facility] Creatinine, Urine Random 1.44 mg/dL [facility] Alb/Creat Ratio, Ur 105.6(H) mg/g Creat [facility] Urine (Urine, Clean Catch) 06/18/2023 Yonas Carrasquillo MD LAB URINE ORDERABLES Performing Organization Address City/[facility]/ZIP Co de Phone Number [facility] * (ABNORMAL) Protein, Total, Random Urine w/Creatinine (Protein/Creat Ratio) (06/18/2023) Creatinine, Urine Random 140 mg/dL [facility] Urine Protein/Creatin ine Ratio 0.4(H) mg/g creat [facility] Protein Urine Random 59(H) [facility] Urine (Urine, Clean Catch) 06/18/2023 Yonas Carrasquillo MD LAB URINE ORDERABLES Performing Organization Address City/[facility] Co de Phone Number [facility] documented in this encounter Visit Diagnoses Diagnosis Serum creatinine above reference range Gross hematuria documented in this encounter Care Teams Manager Statistics Relationship Specialty Start Date End Date Darleen Dacosta DO [address] [place] [address] PCP - General Family Medicine 05/13/23 documented as of this encounter
--- OUTSIDE RECORDS SUMMARY | 2023-07-09 10:29 | XMS_ITS | Encounter Summary ---
Author Name Unknown Organization [facility] Address [address] [place] [address] Care Team Providers Care Limousine Driver Name Role Phone Darleen Dacosta Primary Care Provider Unav ailable Reason for Visit * Reason Comments CKD New Patient * Consultation (Urgent) - Closed Specialty Diagnoses / Procedures Referred By Conttiffanie t Referred To Contact Nephrology Diagnoses Acute kidney failure, not otherwise specified (HCC) River Jacobs MD [address] [place] [id number] [facility] [address] [address] Referral ID Status Reason Start Date Expiration Date V isits Requested Visits Authorized [id number] Closed Specialty Services Required 05/13/2023 05/12/2024 1 1 Encounter Details Date Type Department Care Team Description 06/03/2023 1:20 PM EST Office Visit [facility] [address] [address] Yonas Carrasquillo MD [address] [place] [address] Serum creatinine above reference range (Primary Dx); Nephrolithiasis; Gross hematuria; Vitamin D deficiency, not otherwise specified; Dysuria Social History Tobacco Use Types Packs/Day Years [...] on file documented as of this encounter Last Filed Vital Signs Vital Sign Reading Time Taken Comments Blood Pressure 149/87 06/03/2023 12:48 PM STRIPPER APPRENTICE Pulse 103 06/03/2023 12:48 PM STRIPPER APPRENTICE Temperature - - Respiratory Rate - - Oxygen Saturation - - Inhaled Oxygen Concentration - - Weight 75.8 kg (167 lb) 06/03/2023 12:48 PM STRIPPER APPRENTICE Height 154.9 cm (5' 1) 06/03/2023 12:48 PM STRIPPER APPRENTICE Body Mass Index 31.55 06/03/2023 12:48 PM STRIPPER APPRENTICE documented in this encounter Patient Instructions * Patient Instructions* Iggy Mercer - 06/03/2023 1:20 PM STRIPPER APPRENTICE Pat, Your kidney function is normal. They should not use the iSTAT machine to check creatinine because Hydroxyurea interferes with this. We will do a blood and urine test today. See the Urologist as planned for the blood in the urine. Felice Carrasquillo MD Welcome to [facility] Although we are experts in the care of patients with chronic kidney disease, we understand that youare the expert regarding your own life. Our goal is to work with you in providing the best possiblecare and to meet your individual needs. In addition to our Nephrologists, we have a team of Advanced Practice Providers (MARIAM's) to help closely monitor our patients. Our MARIAM's have specialized training and experience in caring for renal patients. If your Warning Coordination Meteorologist deems it appropriate, you will be scheduled with an MARIAM to manage your care. The keys to managing our patient's care include: Blood Pressure: Our goal is to keep your blood pressure 130/80 or lower. Heart and blood vessels: We want your LDL (bad cholesterol) to be below 100. Blood and Urine testing: Provides a more in depth 'picture' into the current renal status of a patient. If you smoke, it is important to quit. We want you to maintain good nutrition to keep your body healthy, so we do have a Renal American Studies Professor to help you with this. We encourage keeping a log of blood pressures for monitoring efficiency of any blood pressure medications. If you have diabetes, we want to keep your hemoglobin A1c at 7.0 or lower and your blood sugar 80 to 130. Avoid cold medications that include ephedrine, phenylpropolamine or pseudoephedrine (Sudafed, Actifed). If your doctor wants you to have a CT scan or MRI with IV contrast, be sure to let them know that you see a arc and gas welder for your kidney disease. Ask that they contact your arc and gas welder before this type of test is scheduled. When to call for your kidneys: Any new medications prescribed to you by other providers. Any new leg swelling or unexplained weight gain > 3-5 pounds. Consistently elevated Blood Pressure or dizziness (BP greater than 140/90) When to go to the Emergency Room: If you get dehydrated, or have excessive nausea, headache or vomiting, you may need to get IV fluids. If you cannot pass your urine completely (empty your bladder) as this may be a sign of an Acute Injury to your Kidney. Our Doctors, Advanced Practice Providers, nurses, and Renal American Studies Professor are here to provide you with the best renal care. We want you to feel free to call us when you have questions or concerns. To call the nurse at your arc and gas welder's office, please see the address and telephone number listed on your After Visit Summary. Thank you, The Physicians and staff at [facility], [facility]. UNDERSTANDING YOUR BLOOD PRESSURE & LAB RESULTS People who develop chronic kidney disease may have some or all of the following tests. This sheet is to help you understand the results: Blood Pressure: Achieving the blood pressure goals identified by your kidney doctor is very important in slowing the progression of your kidney disease. Always take blood pressure medications as directed. Other steps to follow may include cutting down on the amount of salt in your diet, losing excess weight and following a regular exercise program. Serum Creatinine: Creatinine is a waste product in your blood that comes from muscle activity. It is normally removed from your blood by your kidneys, but when kidney function slows down, the creatinine level rises. (Lab Normal Range: Male: 0.5--1.3, Female: 0.4--1.1) BUN (Blood Urea Nitrogen): BUN is a waste product in your blood that is normally removed from your body by the kidneys. When your kidney function slows down or if you become dehydrated, the BUN levels rise. (Lab Normal Range: 7--24) Glomerular Filtration Rate (GFR): Your GFR tells how much kidney function you have. It is calculated from your blood level of creatinine. (Lab Normal Range: Equal to or greater than 60) Potassium: Potassium is a mineral in your blood that helps your heart and muscles work properly, too much or too little potassium can be harmful to your heart and other muscles in your body. Potassium levels can be controlled by careful dietary restrictions. Our dietitian can help plan your diet toget the right amount of potassium. (Lab Normal Range: 3.5--5.1) Phosphorus: Failing kidneys do not remove phosphorus efficiently. A high phosphorus level can lead to weak bones. If your level is too high, your kidney doctor may ask you to reduce your intake of foods that are high in phosphorus and take medications called phosphate binders with your meals and snacks. (Lab Normal Range: 2.5--4.9) Calcium: Calcium is a mineral that is important for strong bones. To help balance the amount of calcium in your blood, your kidney doctor may ask you to take calcium supplements and Vitamin D. Take only the supplements and medications recommended by your kidney doctor. (Lab Normal Range: 8.5--10.1) Parathyroid Hormone (PTH): This hormone is a marker for your bone health. High levels may result from a poor balance of calcium and phosphorus in your body that can cause bone disease. Your kidney doctor may order a special prescription form of Vitamin D to help lower your PTH. (Lab Normal Range: 14--72) Hemoglobin: Hemoglobin is the part of red blood cells that carries oxygen from your lungs to all parts of your body. A low hemoglobin level indicates too few red blood cells, which is called anemia. Anemia can make you feel tired or have a low energy level. If you have anemia, you may need treatment with iron supplements or a hormone called erythropoietin (EPO). You will be referred to a Hematology Specialty Clinic ([facility]) to manage your anemia. (Lab Normal Range: Males: 14-18, Females: 12-16) TSAT and Serum Ferritin: Your TSAT (% iron saturation) and serum ferritin are measures of iron in your body. Abnormal values may indicate iron deficiency. Your kidney doctor may recommend iron supplements when needed. (Lab Normal Range: TSAT: 15--50; Serum Ferritin: 8--388) Cholesterol tests: Patients with kidney disease have an increased risk for cardiovascular disease (heart disease), therefore it is important that your cholesterol is well controlled. Dietary changes,exercise, and cholesterol lowering medication can lower cholesterol levels and decrease cardiovascular risk. Total Cholesterol: Cholesterol is a fat-like substance found in your blood. A high cholesterol level may increase your chance of having heart and circulation problems. For many patients, the target level is less than 200. HDL Cholesterol: HDL is a type of 'good' cholesterol that protects your heart. For many patients, the target level for HDL is above 40. LDL Cholesterol: LDL is a type of 'bad' cholesterol. A high LDL level may increase your chance of having heart and circulation problems. For many patients, a good level for LDL cholesterol is below 100, but some patients may have an even lower goal. Triglyceride: Triglyceride is a type of fat found in your body. A high triglyceride level along with high levels of total and LDL cholesterol may increase your chance of heart and circulation problems. For many patients, the target level is less than 150. HgbA1c: The HgbA1c is a marker of diabetes control for the past two to three months. Adequate diabetes control has been proven to slow the progression of kidney failure. (Lab Normal Range: Less than or equal to 5.6 if average glucose is less than or equal to 114.) Avoiding Non-Steroidal Anti-Inflammatory Drugs (NSAIDs) Taking medications called NSAIDS (list of names below) can damage your kidneys and we recommend youdo not take them. Because many patients do not recognize NSAIDs by their brand or generic names, there may be overlap in prescription and Over the Counter (OTC) use. NSAIDs are sold under many different brand names, so ask your pharmacist or health care provider if the medicines you take are safe to use. Below is a list of common NSAIDs: ibuprofen (Advil, Motrin, Midol, Wal-Profin) naproxen (Aleve, Naprosyn, Midol Extended Relief, Anaprox) meloxicam (Mobic), oxaprozin (Daypro), piroxicam (Feldene) celecoxib (Celebrex) indomethacin (Indocin) If you take OTC or prescription medicines for headaches, pain, fever, or colds, you may be taking NSAIDs. If you are unsure if a product contains an NSAID, ask your pharmacist or your health care provider. You can also look for product contents on the Drug Facts labels. documented in this encounter Progress Notes * Yonas Carrasquillo MD - 06/03/2023 1:20 PM CST Images from the original note were not included. Patient: Dolly Chau Date of : 1940 Chart: [id number] PCP: Darleen Dacosta DO Date of Service: 06/03/2023 Chief Complaint: I was asked by Dr. Jacobs to evaluate Dolly Chau for elevated creatinine Subjective: Lory is seen today for evaluation for the above. Lory had blood in her urine on May 12. IT was bright red, no clots. It lasted for 2 weeks, now resolved. She thinks she may have a UTI now as slight dysuria, but hematuria has resolved. When she had blood in the urine, she had iSTAT Cr of 3.5. She had iSTAT Cr back in August of 2022 that was 2.5 as well. Serum creatinine on other blood work not done by iSTAT method has been normal with Cr between 0.8 and 1.1. She had normal creatinine in the ER the same day as the iSTAT Cr of 3.5. She was diagnosed with COVID there but she did not have other symptoms of COVID. She has never seen blood in her urine before. She does have known kidney stones. CT shows punctate stones but none large and none that are obstructing. She did not have pain like kidney stone in past. She had lithotripsy by Dr. Maddox once many years ago. SH: Lives in [place] The following portions of the patient's chart were reviewed in this encounter and updated as appropriate: Tobacco Allergies Meds Problems Med Hx Surg Hx Fam Hx Active Problems Patient Active Problem List Diagnosis ??? Calculus of kidney Review of Systems A complete comprehensive review of systems was completed and is negative beside what is stated in the HPI above Taking? Provider LT acetaminophen (TYLENOL) 500 MG tablet Yaya Tucker MD Take 1,000 mg by mouth every 6 (six) hours if needed Ascorbic Acid (Vitamin C) 500 MG capsule Yaya Tucker MD Take 500 mg by mouth in the morning. aspirin 81 MG chewable tablet Yaya Tucker MD Chew 81 mg in the morning. cholecalciferol (VITAMIN D-3 SUPER STRENGTH) 50 MCG (2000 UT) tablet Yaya Tucker MD Take 4,000 Units by mouth in the morning. clopidogrel (PLAVIX) 75 MG tablet Yyaa Tucker MD Take 1 tablet by mouth 1 (one) time each day cyanocobalamin (VITAMIN B-12) 1000 MCG tablet Yaya Tucker MD Take 1,000 mcg by mouth in the morning. Docusate Sodium (DSS) 100 MG capsule Yaya Tucker MD Take 1 capsule by mouth 1 (one) time each day if needed EPINEPHrine (EPIPEN) 0.3 MG/0.3ML injection syringe Yaya Tucker MD Inject 1 Pen into the shoulder, thigh, or buttocks if needed famotidine (PEPCID) 20 MG tablet Yaya Tucker MD Take 20 mg by mouth in the morning. hydroCHLOROthiazide (MICROZIDE) 12.5 MG capsule Yaya Tucker MD Take 1 capsule by mouth 1 (one) time each day hydroxyurea (HYDREA) 500 MG capsule Yaya Tucker MD Take by mouth 1 (one) time each day Take at the same time each day. ondansetron ODT (ZOFRAN-ODT) 4 MG dispersible tablet Yaya Tucker MD Place 4 mg under the tongue if needed simvastatin (ZOCOR) 20 MG tablet Yaya Tucker MD Take 20 mg by mouth 1 (one) time each day in the evening vedolizumab (Entyvio) 300 MG injection Yaya Tucker MD Infuse 300 mg into a venous catheter every 2 months Patient not taking: Patient not taking: Allergies Allergen Reactions ??? Alendronate Other (see comments) Pelvic floor dysfunction PELVIC FLOOR PAIN ??? Bee Venom Swelling has done fine with bees in the past. Could have been a hornet. Physical Exam BP 149/87 (BP Location: Left upper arm, Patient Position: Sitting, BP Cuff Size: Adult) Pulse 103 Ht 5' 1 (1.549 m) Wt 167 lb (75.8 kg) BMI 31.55 kg/m?? CONSTITUTIONAL: appears well and not in any distress EYES: pupils equal, sclerae not icteric. RESPIRATORY: nl effort CARDIOVASCULAR: Regular rate, no edema GASTROINTESTINAL: not distended PSYCHIATRIC: Alert and pleasant INTEGUMENT: No visible rash on exposed skin MUSCULOSKELETAL: four limbs, no contractures Chemistry and Bone Mineral Lab Units 05/21/23 0000 03/16/23 0000 SODIUM mEq/L 138 138 POTASSIUM mEq/L 4.4 4.5 CHLORIDE 100 99 CO2 mmol/L 27 30* CALCIUM mg/dL 9.9 10.4* ALK PHOS U/L 91 74 GLUCOSE mg/dL 104* 92 ALBUMIN g/dL 4.1 3.8* BUN mg/dL 18 23 CREATININE mg/dL 0.86 0.95* EGFR 68* 60* CBC and Iron Studies Lab Units 05/21/23 0000 03/16/23 0000 01/04/23 0000 WBC AUTO K/uL 5.3 8.9 5.5 HEMATOCRIT % 40.8 43.1 42.3 HEMOGLOBIN g/dL 12.9 13.1 14.1 MCV 113* 114* 109* PLATELETS AUTO 466* 196 176 Urine Lab Units 05/21/23 0000 COLOR U red* CLARITY U cloudy* Imaging: CT Abd/Pelvis without contrast 05/13/23: Kidneys: No obstructive urinary calculus. No hydronephrosis. Numerous nonobstructive urinary calculi within the collecting system of both kidneys. Multi-cystic coma atrophic kidneys, the cysts appearsimple attenuating in density but are poorly characterized without the use of intravenous contrast p er. Ureters: Normal. No hydroureter. Urinary Bladder: Normal. IMPRESSION: 1. No obstructive calculus or obstructive [...] the prior CT. Direct visualization is advised. Assessment and Plan: Elevated serum creatinine She had iSTAT Cr of 2.5 and 3.5 in 2022, but creatinine on usual assay has been normal including onthe same day. Review of iSTAT Cr assay reveals that hydroxyurea interferes with measurement and falsely elevated creatinine. Her kidney function is normal and no further work-up is necessary. She should NOT have iSTAT Cr method used to check renal function. Gross Hematuria She has hx of kidney stones. I did CT that shows punctate stones, hx of lithotripsy x1 in past. -She has visit with Urology next month, likely needs CT Urogram and cystoscopy for further work-up to rule out other causes. Mild dysuria Gross hematuria has resolved, but now with mild dysuria. I will repeat UA since blood has resolved and do urine culture. Will treat if positive. Nephrolithiasis She also has hx of osteoporosis. I will check Ca, PTH, and Vit D. Rule out primary hyperparathyroidism. She has visit with Urology coming up, has seen in past and had lithotripsy x1 in past. I will not do other work-up since she has only punctate stones and no large stone or lithotripsy in many years. No follow-up with nephrology needed at this time. Yonas Carrasquillo MD [facility] * Yonas Carrasquillo MD - 06/03/2023 1:20 PM CST Thank you for helping get her UTI treated with Dr. Negron. When she completes this, and when she is not having any urinary symptoms, I would like her to repeat a urine test to do a repeat urine Pr:Cr and urine Alb:Cr to quantify protein as this was possibly impacted by infection but there was some protein in the urine. If this is normal or near normal, then no further testing for her kidneys is needed. If abnormal when no infection, then we may need to do a 24 hour urine collection. Please orderurine Pr:Cr and urine Alb:Cr and send to clinic of her choice. Thanks. -Felice Carrasquillo documented in this encounter Plan of Treatment Not on file documented as of this encounter Procedures Procedure Name Priority Date/Time Associated Diagnosis Comments PROTEIN / CREATININE RATIO, URINE Routine 06/03/2023 12:53 PM STRIPPER APPRENTICE Nephrolithiasis Gross hematuria VITAMIN D 25 HYDROXY Routine 06/03/2023 12:53 PM STRIPPER APPRENTICE Nephrolithiasis Vitamin D deficiency, not otherwise specified URINALYSIS WITH MICROSCOPIC Routine 06/03/2023 12:53 PM STRIPPER APPRENTICE Nephrolithiasis Gross hematuria URINE CULTURE Routine 06/03/2023 12:53 PM STRIPPER APPRENTICE PTH, INTACT Routine 06/03/2023 12:53 PM STRIPPER APPRENTICE Nephrolithiasis Vitamin D deficiency, not otherwise specified CALCIUM Routine 06/03/2023 12:53 PM STRIPPER APPRENTICE Nephrolithiasis Vitamin D deficiency, not otherwise specified documented in this encounter Results * (ABNORMAL) Urine Culture (06/03/2023 12:53 PM STRIPPER APPRENTICE) Culture Result, Urine SEE NOTE(A) [facility] Comment: ??CULTURE, URINE, ROUTINE ?Micro Number: ?[id number] ??Test Status: ? Final ??Specimen Source: ?? Urine ??Specimen Quality: ??Adequate ??Result: ?Greater than 100,000 CFU/mL of Escherichia coli ?E.coli ?INT ?? KATIANA ?? AMOX/CLAVULANATE ? S ? <=2 ?? AMP/SULBACTAM ?S ? <=2 ?? CEFAZOLIN ?NR ?<=4 2 ?? CEFEPIME ? S ? <=0.12 ?? CEFTAZIDIME ?S ? <=1 ?? CEFTRIAXONE ?S ? <=0.25 ?? CIPROFLOXACIN ?S ? <=0.06 ?? GENTAMICIN ? S ? <=1 ?? IMIPENEM ? S ? <=0.25 ?? LEVOFLOXACIN ? S ? <=0.12 ?? MEROPENEM ?S ? <=0.25 ?? NITROFURANTOIN ? S ? <=16 ?? PIP/TAZOBACTAM ? S ? <=4 ?? TRIMETHOPRIM/SULFA ? S ? <=20 S=Susceptible ??I=Intermediate ??R=Resistant ??* = Not Tested NR = Not Reported ??NN = See Therapy Comments THERAPY COMMENTS ?Note 1: ?For infections other than uncomplicated UTI ?caused by E. coli, K. pneumoniae or P. mirabilis: ?Cefazolin is resistant if KATIANA > or = 8 mcg/mL. ?(Distinguishing susceptible versus intermediate ?for isolates with KATIANA < or = 4 mcg/mL requires ?additional testing.) ?Note 2: ?For uncomplicated UTI caused by E. coli, ?K. pneumoniae or P. mirabilis: Cefazolin is ?susceptible if KATIANA <32 mcg/mL and predicts ?susceptible to the oral agents cefaclor, cefdinir, ?cefpodoxime, cefprozil, cefuroxime, cephalexin ?and loracarbef. 06/03/2023 12:5 3 PM STRIPPER APPRENTICE 06/03/2023 12:54 PM STRIPPER APPRENTICE Yonas Carrasquillo MD LAB URINE ORDERABLES [facility] [facility] [address] [place] [address] * Vitamin D 25 hydroxy (06/03/2023 12:53 PM STRIPPER APPRENTICE) Vitamin D, 25-OH, Total, IA 35 30 - 100 ng/mL [facility] Comment: Vitamin D Status ? 25-OH Vitamin D: Deficiency: ?<20 ng/mL Insufficiency: ? 20 - 29 ng/mL Optimal: ? > or = 30 ng/mL For 25-OH Vitamin D testing on patients on D2-supplementation and patients for whom quantitation of D2 and D3 fractions is required, the Reglare() 25-OH VIT D, (D2,D3), LC/MS/MS is recommended: order code 61508 (patients >2yrs). See Note 1 Note 1 For additional information, please refer to http://education.Hojo.pl.Data Camp/faq/GJQ654 (This link is being provided for informational/ educational purposes only.) Blood (Blood, Venous) 06/03/2023 12:53 PM STRIPPER APPRENTICE 06/03/2023 12:54 PM STRIPPER APPRENTICE Yonas Carrasquillo MD LAB BLOOD ORDERABLES Performing Organization Address [facility] Co de Phone Number [employer] [facility] [address] [place] [address] * Calcium (06/03/2023 12:53 PM STRIPPER APPRENTICE) Pathologist [facility] Calcium 9.7 8.6 - 10.4 mg/dL [facility] Blood (Blood, Venous) 06/03/2023 12:53 PM STRIPPER APPRENTICE 06/03/2023 12:54 PM STRIPPER APPRENTICE Yonas Carrasquillo MD LAB BLOOD ORDERABLES Performing Organization Address [facility] de Phone Number [facility] [address] [place] [address] * PTH, intact (06/03/2023 12:53 PM STRIPPER APPRENTICE) [facility] Parathyroid Hormone, Intact 66 16 - 77 pg/mL [facility] [place] Comment: Interpretive Guide ?Intact PTH ? Calcium ? ------- Normal Parathyroid ?Normal ? Normal Hypoparathyroidism ?Low or Low Normal ?Low Hyperparathyroidism ?? Primary ?Normal or High ? High ?? Secondary ?High ? Normal or Low ?? Tertiary ? High ? High Non-Parathyroid ?? Hypercalcemia ?Low or Low Normal ?High Blood (Blood, Venous) 06/03/2023 12:53 PM STRIPPER APPRENTICE 06/03/2023 12:54 PM STRIPPER APPRENTICE Yonas Carrasquillo MD LAB BLOOD ORDERABLES Performing Organization Address [facility] Co de Phone Number [facility] [address] [place] [address] * (ABNORMAL) Urine Protein / creatinine ratio (06/03/2023 12:53 PM STRIPPER APPRENTICE) Creatinine, Ur 79 20 - 275 mg/dL [facility] Urine Protein/Creati nine Ratio 1,089(H) 24 - 184 mg/g creat [facility] Protein/Creati nine Ratio, Urine 1.089(H) 0.024 - 0.184 mg/mg creat [facility] Protein Urine Random 86(H) 5 - 24 mg/dL [facility] Urine (Urine, Clean Catch) 06/03/2023 12:53 PM STRIPPER APPRENTICE 06/03/2023 12:54 PM STRIPPER APPRENTICE Yonas Carrasquillo MD LAB URINE ORDERABLES Performing Organization Address [facility] Co de Phone Number [facility] [address] [place] [address] * (ABNORMAL) Urinalysis with microscopic (06/03/2023 12:53 PM STRIPPER APPRENTICE) Color, Urine YELLOW YELLOW [facility] Appearance Urine TURBID(A) CLEAR [facility] Specific [place], UA 1.015 1.001 - 1.035 [facility] pH Urine 5.5 5.0 - 8.0 [facility] Glucose, Ur NEGATIVE NEGATIVE [facility] Bilirubin, Urine NEGATIVE NEGATIVE [facility] Ketones, Urine NEGATIVE NEGATIVE [facility] Hemoglobin Ur Ql Strip 3+(A) NEGATIVE [facility] Protein, Ur 1+(A) NEGATIVE [facility] Nitrite, Urine POSITIVE(A) NEGATIVE [facility] WBC Esterase Urine 3+(A) NEGATIVE [facility] WBC, Urine PACKED(A) < OR = 5 /HPF [facility] RBC, Urine 20-40(A) < OR = 2 /HPF [facility] Epithelial Cells in Urine NONE SEEN < OR = 5 /HPF [facility] Trans Epithelial, Urine CANCELED < OR = 5 /HPF [facility] Comment:Result canceled by t he ancillary. Renal Epithelial Cells, Urine CANCELED < OR = 3 /HPF [facility] Comment:Result canceled by t he ancillary. Bacteria MANY(A) NONE SEEN /HPF [facility] Calcium Oxalate Crystals, Urine CANCELED NONE OR FEW /HPF [facility] [facility] Comment:Result canceled by t he ancillary. Triple Phosphate Crystals, Urine CANCELED NONE OR FEW /HPF [facility] Comment:Result canceled by t he ancillary. Uric Acid Crystals, Urine CANCELED NONE OR FEW /HPF [facility] Comment:Result canceled by t he ancillary. Amorphous Sediments CANCELED NONE OR FEW /HPF [facility] Comment:Result canceled by t he ancillary. Crystals CANCELED NONE SEEN /HPF [facility] Comment:Result canceled by t he ancillary. Hyaline Casts, Urine 0-5(A) NONE SEEN /LPF [facility] Granular Casts, Urine CANCELED NONE SEEN /LPF [facility] Comment:Result canceled by t he ancillary. Casts CANCELED NONE SEEN /LPF [facility] Comment:Result canceled by t he ancillary. Yeast, UA CANCELED NONE SEEN /HPF [facility] Comment:Result canceled by t he ancillary. Note: [facility] Comment: This urine was analyzed for the presence of WBC, RBC, bacteria, casts, and other formed elements. Only those elements seen were reported. Urine (Urine, Clean Catch) 06/03/2023 12:53 PM STRIPPER APPRENTICE 06/03/2023 12:54 PM STRIPPER APPRENTICE Yonas Carrasquillo MD LAB URINE ORDERABLES [facility] [address] [place] [address] documented in this encounter Visit Diagnoses Diagnosis Serum creatinine above reference range- Primary Nephrolithiasis Gross hematuria Vitamin D deficiency, not otherwise specified Dysuria documented in this encounter Care Teams Limousine Driver Relationship Specialty Start Date End Date Darleen Dacosta DO [address] [place] [address] PCP - General Family Medicine 05/13/23 documented as of this encounter
--- OUTSIDE RECORDS SUMMARY | 2023-07-09 10:29 | XMS_ITS | Encounter Summary ---
Author Name Unknown Organization [facility] Address [address] [place] [address] Care Team Providers Care Laborer Golf Course Name Role Phone KeenaDarleen mora Primary Care Provider Unav ailable Encounter Details Date Type Department Care Team Description 05/13/2023 Telephone [facility] [place] [address] [place] [address] Ameena Martin MD [address] [place] [address] Social History Tobacco Use Types Packs/Day Years Used Date Smoking Tobacco: Never Assessed Sex and Gender Information Value Date Recorded Sex Assigned at Not on file Gender Identity Not on file Sexual Orientation Not on file documented as of this encounter Miscellaneous Notes * Telephone Encounter - Elisa Chung RN - 05/19/2023 10:04 AM CST Pt called stating she went to the hospital over the weekend and states she no longer has Chun and was told she has CKD. She plans to see her PCP on Wednesday for f/u and will schedule with urology for blood in her urine. * Telephone Encounter - Carla Pacheco - 05/13/2023 2:00 PM CST Okayed by Patient Access Virtualization Architect to schedule on [facility] schedule with Dr. Carrasquillo. Patient agreed to move up visit to 06/03/2023 and the new patient packet was replaced. * Telephone Encounter - Carla Pacheco - 05/13/2023 11:17 AM CST Patient is scheduled 06/[address] Martin in [place]. New patient packet sent to patient. Mila from [facility] called with the patient to schedule. Please review this JURGEN referral to determine if the timeframe is appropriate: 1) Referred from: Coleen Gamez - Dr. River Jacobs 2) Reason for referral/diagnosis: Ackute Renal Failure 3) What records were uploaded to chart?: Coleen is sending the patient's referral by fax for uploading. documented in this encounter Plan of Treatment Not on file documented as of this encounter Visit Diagnoses Not on filedocumented in this encounter Care Teams Laborer Golf Course Relationship Specialty Start Date End Date Darleen Dacosta DO [address] [place] [address] PCP - General Family Medicine 05/13/23 documented as of this encounter
--- OUTSIDE RECORDS SUMMARY | 2023-07-09 10:29 | XMS_ITS | Encounter Summary ---
Author Name Unknown Organization [facility] Address [address] [place] [address] Care Team Providers Care Instructor Watch Assembly Name Role Phone Keenamorgan Darleen Lowery Primary Care Provider Unav ailable Encounter Details Date Type Department Care Team Description 05/20/2023 Office Communication [facility] [place] [address] [place] [address] Iggy Mercer [address] [place] [address] Social History Tobacco Use Types Packs/Day Years Used Date Smoking Tobacco: Never Assessed Sex and Gender Information Value Date Recorded Sex Assigned at Not on file Gender Identity Not on file Sexual Orientation Not on file documented as of this encounter Miscellaneous Notes * Telephone Encounter - Yonas Carrasquillo MD - 05/20/2023 5:06 PM CST This is a new patient. I sent message to PCP to do some tests before her visit with me. I will waitto order any tests until I have seen her. -Felice Carrasquillo * Telephone Encounter - Iggy Mercer - 05/20/2023 4:17 PM CST Patient has a follow up with you on 06/03/23 order previsit labs if needed. documented in this encounter Plan of Treatment Not on file documented as of this encounter Visit Diagnoses Not on filedocumented in this encounter Care Teams Instructor Watch Assembly Relationship Specialty Start Date End Date Darleen Dacosta DO [address] [place] [address] PCP - General Family Medicine 05/13/23 documented as of this encounter
--- OUTSIDE RECORDS SUMMARY | 2023-07-09 10:29 | XMS_ITS | Encounter Summary ---
Author Name Unknown Organization [facility] Address [address] [place] [address] Care Team Providers Care Finance Insurance Manager Name Role Phone Darleen Dacosta DO Primary Care Provider Unav ailable Reason for Referral * Consultation (Urgent) - Closed Specialty Diagnoses / Procedures Referred By Contac t Referred To Contact Nephrology Diagnoses Acute kidney failure, not otherwise specified (HCC) River Jacobs MD [address] [place] [address] [facility] [address] [place] [address] Referral ID Status Reason Start Date Expiration Date V isits Requested Visits Authorized [id number] Closed Specialty Services Required 05/13/2023 05/12/2024 1 1 IFIED DIALYSIS TECHNICIAN Encounter Details Date Type Department Care Team Description 05/13/2023 Transcribe Orders [facility] [address] [place] [address] Darleen Dacosta DO [address] [place] [address] Acute kidney failure, not otherwise specified (HCC) (Primary Dx) Social History Tobacco Use Types Packs/Day Years Used Date Smoking Tobacco: Never Assessed Sex and Gender Information Value Date Recorded Sex Assigned at Not on file Gender Identity Not on file Sexual Orientation Not on file documented as of this encounter Plan of Treatment Scheduled Referrals Name Type Priority Associated Diagnoses Order Schedule Ambulatory referral to Nephrology Outpatient Referral Routine Acute kidney failure, not otherwise specified (HCC) Expected: 05/13/2023, Expires: 06/13/2024 documented as of this encounter Visit Diagnoses Diagnosis Acute kidney failure, not otherwise specified (HCC)- Primary documented in this encounter Care Teams Finance Insurance Manager Relationship Specialty Start Date End Date Darleen Dacosta DO [address] [place] [address] PCP - General Family Medicine 05/13/23 documented as of this encounter
--- OUTSIDE RECORDS SUMMARY | 2023-07-09 10:29 | XMS_ITS | Clinical Summary ---
Author Name Unknown Organization [facility] Address [address] [facility] [place] [address] Phone Care Team Providers Care Personal Service Workers Name Role Phone KeenaDarleen mora Beverley Primary Care Provider Unav ailable Allergies Active Allergy Reactions Criticality Noted Date Comments Alendronate Other (see comments) Medium 05/04/2008 Pelvic floor dysfunction PELVIC FLOOR PAIN Bee Venom Swelling 01/23/2022 has done fine with bees in the past. Could have been a hornet. Medications Medication Sig Dispensed Refills Start Date End Date Status acetaminophen (TYLENOL) 500 MG tablet Take 1,000 mg by mouth every 6 (six) hours if needed 0 04/29/2020 Active Ascorbic Acid (Vitamin C) 500 MG capsule Take 500 mg by mouth in the morning. 0 Active aspirin 81 MG chewable tablet Chew 81 mg in the morning. 0 Active cholecalciferol (VITAMIN D-3 SUPER STRENGTH) 50 MCG (2000 UT) tablet Take 4,000 Units by mouth in the morning. 0 01/22/2023 Active clopidogrel (PLAVIX) 75 MG tablet Take 1 tablet by mouth 1 (one) time each day 0 12/17/2022 Active cyanocobalamin (VITAMIN B-12) 1000 MCG tablet Take 1,000 mcg by mouth in the morning. 0 Active Docusate Sodium (DSS) 100 MG capsule Take 1 capsule by mouth 1 (one) time each day if needed 0 Active EPINEPHrine (EPIPEN) 0.3 MG/0.3ML injection syringe Inject 1 Pen into the shoulder, thigh, or buttocks if needed 0 01/23/2022 Active famotidine (PEPCID) 20 MG tablet Take 20 mg by mouth in the morning. 0 05/13/2023 Active hydroCHLOROthiazide (MICROZIDE) 12.5 MG capsule Take 1 capsule by mouth 1 (one) time each day 0 Active ondansetron ODT (ZOFRAN-ODT) [address] 4 mg under the tongue if needed 0 05/21/2023 Active simvastatin (ZOCOR) 20 MG tablet Take 20 mg by mouth 1 (one) time each day in the evening 0 03/29/2023 Active vedolizumab (Entyvio) 300 MG injection Infuse 300 mg into a venous catheter every 2 months 0 02/19/2023 Active hydroxyurea (HYDREA) 500 MG capsule Take by mouth 1 (one) time each day Take at the same time each day. 0 Active cephalexin (Keflex) 500 MG capsule Take 1 capsule (500 mg total) by mouth in the morning and 1 capsule (500 mg total) in the evening. Do all this for 7 days. 14 capsule 0 06/07/2023 06/14/2023 Active Problems Problem Noted Date Diagnosed Date Calculus of kidney 04/11/2007 05/25/2023 Encounters Date Type Department Care Team Description 06/30/2023 Telephone [facility] [place] [address] [facility] [address] [place] [phone] Elisa Chung RN 06/23/2023 Orders Only [facility] [place] [address] [facility] [address] [facility] [place] [phone] Elisa Chung, CECILE Serum creatinine above reference range; Gross hematuria 06/18/2023 Telephone [facility] [place] [address] [facility] [address] [place] [address] Elisa Chung RN 06/08/2023 Telephone [facility] [place] [address] [facility] [address] [place] [address] Elisa Chung RN 06/07/2023 Telephone [facility] [place] [address] [facility] [address] [place] [phone] Elisa Chung RN 06/03/2023 1:20 PM EST Office Visit [facility] [place] [facility] [place] [phone] Yonas Carrasquillo MD Serum creatinine above reference range (Primary Dx); Nephrolithiasis; Gross hematuria; Vitamin D deficiency, not otherwise specified; Dysuria 05/25/2023 Documentation Only [facility] [place] [place] [address] Iggy Mercer 05/20/2023 Office Communication [facility] [place] [facility] [place] [phone] Iggy Mercer 05/13/2023 Orders Only [facility] [address] [address] Acute kidney failure, not otherwise specified (HCC) 05/13/2023 Transcribe Orders [facility] [address] [address] Darleen Dacosta DO Acute kidney failure, not otherwise specified (HCC) (Primary Dx) 05/13/2023 Documentation Only [facility] [place] [phone] No, Pcp 05/13/2023 Telephone [facility] [place] [facility] [place] [phone] Ameena Martin MD from Last 3 Months Family History Medical History Relation Comments Prostate cancer Father Stroke Mother Relation Status Comments Father Mother Social History Tobacco Use Types Packs/Day Years [...] Comments Blood Pressure 149/87 06/03/2023 12:48 PM CULINARY INTERNSHIP Pulse 103 06/03/2023 12:48 PM [employer]IN[employer] INTERNSHIP Temperature - - Respiratory Rate - - Oxygen Saturation - - Inhaled Oxygen Concentration - - Weight 75.8 kg (167 lb) 06/03/2023 12:48 PM [employer]NSH[employer] Height 154.9 cm (5' 1) 06/03/2023 12:48 PM [employer]IN[employer] INTERNSHIP Body Mass Index 31.55 06/03/2023 12:48 PM [employer]IN[employer] INTERNSHIP Plan of Treatment Health Maintenance Due Date Last Done Comments Influenza Vaccine (#1) 2023 2, 02/05/2021, 02/14/2020, Additional history exists Pneumococcal Vaccine: 65+ Years Completed 02/18/2015, 08/30/2007 Hepatitis B Vaccine Aged Out No longe r eligible based on patient's age to complete this topic Procedures Procedure Name Priority Date/Time Associated Diagnosis Comments URINE ALBUMIN / CREATININE RATIO Routine 06/18/2023 Serum creatinine above reference range Gross hematuria PROTEIN / CREATININE RATIO, URINE Routine 06/18/2023 Serum creatinine above reference range Gross hematuria URINE CULTURE Routine 06/03/2023 12:53 PM [employer]INARY INTERNSHIP VITAMIN D 25 HYDROXY Routine 06/03/2023 12:53 PM C[employer]INARY INTERNSHIP Nephrolithiasis Vitamin D deficiency, not otherwise specified CALCIUM Routine 06/03/2023 12:53 PM [employer]IN[employer] INTERNSHIP Nephrolithiasis Vitamin D deficiency, not otherwise specified PTH, INTACT Routine 06/03/2023 12:53 PM [employer]INARY INTERNSHIP Nephrolithiasis Vitamin D deficiency, not otherwise specified PROTEIN / CREATININE RATIO, URINE Routine 06/03/2023 12:53 PM CULINARY INTERNSHIP Nephrolithiasis Gross hematuria URINALYSIS WITH MICROSCOPIC Routine 06/03/2023 12:53 PM CULINARY INTERNSHIP Nephrolithiasis Gross hematuria COMPREHENSIVE METABOLIC PANEL (CMP) (EXTERNAL LAB ENTRY) Routine 05/21/2023 CBC Routine 05/21/2023 URINALYSIS (EXT LAB ENTRY) Routine 05/21/2023 from Last 3 Months Results * (ABNORMAL) Protein, Total, Random Urine w/Creatinine (Protein/Creat Ratio) (06/18/2023) Only the most recent of2 resultswithin the time period is included. Creatinine, Urine Random 140 mg/dL [facility] Urine Protein/Creatin ine Ratio 0.4(H) mg/g creat [facility] Protein Urine Random 59(H) [facility] Urine (Urine, Clean Catch) 06/18/2023 Yonas Carrasquillo MD LAB URINE ORDERABLES Performing Organization Address [facility] Co de Phone Number [facility] * (ABNORMAL) Urine Albumin / Creatinine Ratio (06/18/2023) Albumin, Urine 152 mg/dL [facility] Creatinine, Urine Random 1.44 mg/dL [facility] Alb/Creat Ratio, Ur 105.6(H) mg/g Creat [facility] Urine (Urine, Clean Catch) 06/18/2023 Yonas Carrasquillo MD LAB URINE ORDERABLES Performing Organization Address [facility] Co de Phone Number [facility] * Vitamin D 25 hydroxy (06/03/2023 12:53 PM C[employer]INARY INTERNSHIP) Vitamin D, 25-OH, Total, IA 35 30 - 100 ng/mL [facility] Comment: Vitamin D Status ? 25-OH Vitamin D: Deficiency: ?<20 ng/mL Insufficiency: ? 20 - 29 ng/mL Optimal: ? > or = 30 ng/mL For 25-OH Vitamin D testing on patients on D2-supplementation and patients for whom quantitation of D2 and D3 fractions is required, the [facility]) 25-OH VIT D, (D2,D3), LC/MS/MS is recommended: order code 78193 (patients >2yrs). See Note 1 Note 1 For additional information, please refer to http://education.[employer]/faq/XFB940 (This link is being provided for informational/ educational purposes only.) Blood (Blood, Venous) 06/03/2023 12:53 PM CULINARY INTERNSHIP 06/03/2023 12:54 PM C[employer]INARY INTERNSHIP Yonas Carrasquillo MD LAB BLOOD ORDERABLES [facility] [address] [place] [place] [address] * (ABNORMAL) Urinalysis with microscopic (06/03/2023 12:53 PM [employer]IN[employer]NSH[employer]) Color, Urine YELLOW YELLOW [facility] Appearance Urine TURBID(A) CLEAR [facility] Specific [place], UA 1.015 1.001 - 1.035 [facility] pH Urine 5.5 5.0 - 8.0 [facility] Glucose, Ur NEGATIVE NEGATIVE [facility] Bilirubin, Urine NEGATIVE NEGATIVE [facility] Ketones, Urine NEGATIVE NEGATIVE [facility] Hemoglobin Ur Ql Strip 3+(A) NEGATIVE [facility] Protein, Ur 1+(A) NEGATIVE [facility] Nitrite, Urine POSITIVE(A) NEGATIVE [facility] WBC Esterase Urine 3+(A) NEGATIVE [facility] WBC, Urine PACKED(A) < OR = 5 /HPF [facility] RBC, Urine 20-40(A) < OR = 2 /HPF [facility] Epithelial Cells in Urine NONE SEEN < OR = 5 /HPF [facility] Trans Epithelial, Urine CANCELED < OR = 5 /HPF [facility] Comment:Result canceled by t he ancillary. Renal Epithelial Cells, Urine CANCELED < OR = 3 /HPF [facility] Comment:Result canceled by t he ancillary. Bacteria MANY(A) NONE SEEN /HPF [facility] Calcium Oxalate Crystals, Urine CANCELED NONE OR FEW /HPF [facility] Comment:Result canceled by t he ancillary. Triple Phosphate Crystals, Urine CANCELED NONE OR FEW /HPF [facility] Comment:Result canceled by t he ancillary. Uric Acid Crystals, Urine CANCELED NONE OR FEW /HPF [facility] Comment:Result canceled by t he ancillary. Amorphous Sediments CANCELED NONE OR FEW /HPF [facility] Comment:Result canceled by t he ancillary. Crystals CANCELED NONE SEEN /HPF [facility] Comment:Result canceled by t he ancillary. Hyaline Casts, Urine 0-5(A) NONE SEEN /LPF [facility] Granular Casts, Urine CANCELED NONE SEEN /LPF [facility] Comment:Result canceled by t he ancillary. Casts CANCELED NONE SEEN /LPF [facility] Comment:Result canceled by t he ancillary. Yeast, UA CANCELED NONE SEEN /HPF [facility] Comment:Result canceled by t he ancillary. Note: [facility] Comment: This urine was analyzed for the presence of WBC, RBC, bacteria, casts, and other formed elements. Only those elements seen were reported. Urine (Urine, Clean Catch) 06/03/2023 12:53 PM [employer] 06/03/2023 12:54 PM [employer] Yonas Carrasquillo MD LAB URINE ORDERABLES Performing Organization Address City/State/[facility] Co de Phone Number [facility] [address] [place] [address] * (ABNORMAL) Urine Culture (06/03/2023 12:53 PM [employer]) Culture Result, Urine SEE NOTE(A) [facility] Comment: ??CULTURE, URINE, ROUTINE ?Micro Number: ?[id number] ??Test Status: ? Final ??Specimen Source: ?? [...] or P. mirabilis: Cefazolin is ?susceptible if AKTIANA <32 mcg/mL and predicts ?susceptible to the oral agents cefaclor, cefdinir, ?cefpodoxime, cefprozil, cefuroxime, cephalexin ?and loracarbef. 06/03/2023 12:5 3 PM [employer] 06/03/2023 12:54 PM [employer]IN[employer] INTERNSHIP Yonas Carrasquillo MD LAB URINE ORDERABLES Performing Organization Address City/State/[facility] Co de Phone Number [facility] [address] [place] [address] * PTH, intact (06/03/2023 12:53 PM [employer]) Parathyroid Hormone, Intact 66 16 - 77 pg/mL [facility] Comment: Interpretive Guide ?Intact PTH ? Calcium ? ------- Normal Parathyroid ?Normal ? Normal Hypoparathyroidism ?Low or Low Normal ?Low Hyperparathyroidism ?? Primary ?Normal or High ? High ?? Secondary ?High ? Normal or Low ?? Tertiary ? High ? High Non-Parathyroid ?? Hypercalcemia ?Low or Low Normal ?High Blood (Blood, Venous) 06/03/2023 12:53 PM [employer] 06/03/2023 12:54 PM [employer] Yonas Carrasquillo MD LAB BLOOD ORDERABLES Performing Organization Address [facility] de Phone Number [employer] [facility] [employer] [facility] [address] [place] [address] * Calcium (06/03/2023 12:53 PM [employer]) Calcium 9.7 8.6 - 10.4 mg/dL [facility] Blood (Blood, Venous) 06/03/2023 12:53 PM [employer] 06/03/2023 12:54 PM [employer] Yonas Carrasquillo MD LAB BLOOD ORDERABLES Performing Organization Address [facility] de Phone Number [employer] [facility] [employer] [address] [place] [address] * (ABNORMAL) Comprehensive Metabolic Panel (CMP) (05/21/2023) [...] [facility] Anion Gap 11 [facility] Blood 05/21/2023 Yaya Tucker MD LAB BLOOD ORDERAB LES Performing Organization Address [facility] de Phone Number [facility] * (ABNORMAL) Urinalysis (05/21/2023) Color, Urine red(A) [facility] Clarity, Urine cloudy(A) [facility] Urine Specific [place] [facility] Comment:Unable to interpret due to interfering [...] Historical Provider MD LAB URINE ORDERAB LES [facility] * (ABNORMAL) CBC (05/21/2023) WBC 5.3 K/uL [...] [facility] Blood (Blood, Venous) 05/21/2023 Historical Provider LAB BLOOD ORDERAB LES [facility] from Last 3 Months Care Teams Personal Service Workers Relationship Specialty Start Date End Date Darleen Dacosta DO [address] [place] [address] PCP - General Family Medicine 05/13/23
--- OUTSIDE RECORDS SUMMARY | 2023-07-09 10:29 | XMS_ITS | Encounter Summary ---
Author Name Unknown Organization [facility] Address [address] [place] [address] Care Team Providers Care Property Controller Name Role Phone KeenaDarleen mora Beverley Primary Care Provider Unav ailable Encounter Details Date Type Department Care Team Description 06/08/2023 Telephone [facility] [place] [address] [place] [address] Elisa Chung, RN [address] [place] [address] Social History Tobacco Use Types Packs/Day Years [...] Telephone Encounter - Elisa Chung RN - 06/09/2023 2:40 PM CST Pt notified and voiced understanding. Faxed lab order to Coleen Gamez. * Telephone Encounter - Elisa Chung RN - 06/08/2023 1:58 PM CST ----- Message from Yonas Carrasquillo MD sent at 06/08/2023 1:56 PM WHAT JOB TITLES MEAN ----- Thank you for helping get her UTI [...] on file documented as of this encounter Results * (ABNORMAL) Urine Albumin / Creatinine Ratio (06/18/2023) Albumin, Urine 152 mg/dL [facility] Creatinine, Urine Random 1.44 mg/dL [facility] Alb/Creat Ratio, Ur 105.6(H) mg/g Creat [facility] Urine (Urine, Clean Catch) 06/18/2023 Yonas Carrasquillo MD LAB URINE ORDERABLES [facility] * (ABNORMAL) Protein, Total, Random Urine w/Creatinine (Protein/Creat Ratio) (06/18/2023) Creatinine, Urine Random 140 mg/dL [facility] Urine Protein/Creatin ine Ratio 0.4(H) mg/g creat [facility] Protein Urine Random 59(H) [facility] Urine (Urine, Clean Catch) 06/18/2023 Yonas Carrasquillo MD LAB URINE ORDERABLES [facility] documented in this encounter Visit Diagnoses Diagnosis Serum creatinine above reference range- Primary Gross hematuria documented in this encounter Care Teams Property Controller Relationship Specialty Start Date End Date Darleen Dacosta DO [address] [place] [address] PCP - General Family Medicine 05/13/23 documented as of this encounter
--- OUTSIDE RECORDS SUMMARY | 2023-07-09 10:29 | XMS_ITS | Encounter Summary ---
Author Name Unknown Organization [facility] Address [address] [place] [address] Care Team Providers Care Quality Tech Name Role Phone Darleen Dacosta DO Primary Care Provider Unav ailable Encounter Details Date Type Department Care Team Description 06/18/2023 Telephone [facility] [place] [address] [place] [address] Elisa Chung, RN [address] [place] [address] Social History Tobacco Use Types [...] Telephone Encounter - Yonas Carrasquillo MD - 06/21/2023 4:23 PM CST I spoke with patient about results. She has microalbuminuria and urine Pr:Cr 0.4 g/g (just above normal). Her BP is elevated and this may account for this. She does not need f/u with me. Renal function is normal and she has f/u with Urology given hematuria. She will follow with PCP. -Felice Carrasquillo MD * Telephone Encounter - Elisa Chung RN - 06/21/2023 9:12 AM CST Pt called requesting for Dr. Carrasquillo to review recheck urine protein test and advise. States she isscheduled with Urology on 07/02. She also questions if it is OK for her to have CT contrast? * Telephone Encounter - Elisa Chung RN - 06/18/2023 2:57 PM CST [facility]. Pt questions when the results will be back. Advised that it usually takes 1-2 days to get sent to us. Pt will call the office onMonday to get results. documented in this encounter Plan of Treatment Not on file documented as of this encounter Visit Diagnoses Not on filedocumented in this encounter Care Teams Quality Tech Relationship Specialty Start Date End Date Darleen Dacosta DO [address] [place] [address] PCP - General Family Medicine 05/13/23 documented as of this encounter
--- OUTSIDE RECORDS SUMMARY | 2023-07-09 10:29 | XMS_ITS | Encounter Summary ---
Author Name Unknown Organization [facility] Address [address] [place] [address] Care Team Providers Care Buffing Machine Operator Name Role Phone [place] Darleen Beverley Primary Care Provider Unav ailable Encounter Details Date Type Department Care Team Description 06/07/2023 Telephone [facility] [place] [address] [place] [address] Elisa Chung, RN [address] [place] [address] Social History Tobacco Use Types [...] Telephone Encounter - Elisa Chung RN - 06/07/2023 9:43 AM CST Images from the original note were not included. Paged UC to Dr. Negron. Emil Negron She can take Keflex 500mg PO q12 hours for 7 days. (14 pills) Pt notified and voiced understanding. documented in this encounter Plan of Treatment Not on file documented as of this encounter Visit Diagnoses Not on filedocumented in this encounter Care Teams Buffing Machine Operator Relationship Specialty Start Date End Date Darleen Dacosta DO [address] [place] [address] PCP - General Family Medicine 05/13/23 documented as of this encounter
--- OUTSIDE RECORDS SUMMARY | 2023-07-09 10:29 | XMS_ITS | Encounter Summary ---
Author Name Unknown Organization [facility] Address [address] [facility] [address] [place] [address] Care Team Providers Care Senior Shipping Clerk Name Role Phone Darleen Dacosta DO Primary Care Provider Unav ailable Encounter Details Date Type Department Care Team Description 05/13/2023 Documentation Only [facility] [place] [address] [email or web address] [address] [place] [address] No, Pcp Social History Tobacco Use Types Packs/Day Years Used Date Smoking Tobacco: Never Assessed Sex and Gender Information Value Date Recorded Sex Assigned at Not on file Gender Identity Not on file Sexual Orientation Not on file documented as of this encounter Plan of Treatment Not on file documented as of this encounter Visit Diagnoses Not on filedocumented in this encounter Care Teams Senior Shipping Clerk Relationship Specialty Start Date End Date Darleen Dacosta DO [address] [place] [address] PCP - General Family Medicine 05/13/23 documented as of this encounter
--- OUTSIDE RECORDS SUMMARY | 2023-07-09 10:29 | XMS_ITS | Continuity of Care Document ---
Author Name Unknown Address [address] [place] [address] Phone [phone] Organization [facility] Address [address] [place] [address] Care Team Providers Care Forcer Maker Name Role Phone [facility] Primary Care Provider Assessment No assessment recorded. Plan of Treatment Reminders Order Date Submit Date Provider Last Modified By Organization Details Last Modified Time Details Appointments None recorded. Lab urinalysis , dipstick 2023 024 [email or web address] [facility], [address], [place], [address], 15:32:50 Referral None recorded. Procedures None recorded. Surgeries None recorded. Imaging None recorded. Medication Orders None recorded. Patient TargetsNo targets recorded. Patient Instructions Encounter Date Encounter Id Patient Instructions Last Modified By Organization Details Last Modified Time 07/02/2023 [id number] will set her up to get CT urogram in [place] and call with report/plan for cysto. [email or web address] Not available 07/02/2023 15:34:20 Reason for Referral None Reported. Results Created Date Observation Date Name Description Value Unit Range Abnormal Flag LastModifiedBy Organization Detail LastModifiedTime 07/02/19 24 07/02/2023 urina lysis , dipst ick pH-Status 6.0 Not Available [facility] [address], [place], [address], 07/02/2023 15:20:47 07/02/19 24 07/02/2023 urina lysis , dipst ick Blood-Status Modera te Not Available [facility] [address], [place], [address], 07/02/2023 15:20:47 07/02/19 24 07/02/2023 urina lysis , dipst ick Leuko-Status Small Not Available [facility] [address], [place], [address], 07/02/2023 15:20:47 Result Notes None recorded. Problems Name Status Onset Date Resolution Date Notes Provider Name and Address Organization Details Recorded Time Hypertensive disorder Active 019 I10 : Essential (primary) hypertension Not Available [facility] 0 02:06:07 Ureteric stone Active 019 N20.1 : Calculus of ureter Not Available [facility] 0 02:06:08 Kidney stone Active 024 Feliz Maddox MD [address] [place] [address],[address], [address] , [facility] 4 15:33:06 Recurrent urinary tract infection Active 024 Feliz Maddox MD [address] [place] [address], [address] , [facility] 4 15:33:10 Jerome hematuria Active 024 Feliz Maddox MD [address] [place] [address],[address], [address] , [facility] 4 15:34:06 Problem Notes None recorded. Procedures Surgical History Date Name Laterality Status Provider Name and Address Organization Details Recorded Time reconstruction of pelvic floor completed Feliz Maddox MD [address] [place] [address],[address], [address], [facility] 09/15/2021 15:47:54 Imaging Results None recorded. Procedure Notes None recorded. Medical Equipment None Reported. Allergies Allergen ID Allergen Name Allergen Category Reaction Reaction Severity Criticality Documentation Date Start Date Code Code System Note Provider Name and Address Organization Details Recorded Time [id number] Fosamax medicatio n abdominal pain Not available Not available 02/21/2021 87594 5 RxNorm Feliz Maddox MD [address] [address], [place], [address], [facility] 15:05:52 Medications Name Sig Start Date Stop Date Status Note LastModified by Organization Details LastModified Time amoxicillin 500 mg capsule 07/02 completed Not Available Not Available Not Available desonide 0.05 % topical cream APPLY TO EYELIDS TWICE DAILY FOR 1-2 WEEKS. MIX 11 WITH KETOCONAZ OLE CREAM AND APPLY TO AFFECTED AREAS AROUND MOUTH TWICE DAILY FOR 1-2 WEE 07/02 completed Not Available Not Available Not Available hydroxyurea 500 mg capsule TAKE 1 CAPSULE BY MOUTH TWICE DAILY 07/02 completed Not Available Not Available Not Available prednisone 10 mg tablet TAKE 2 TABLETS BY MOUTH EVERY DAY 07/02 completed Not Available Not Available Not Available fluconazole 150 mg tablet TAKE 1 TABLET BY MOUTH 1 TIME FOR 1 DOSE 02/21 completed Not Available Not Available Not Available hydrocodone 5 mg-acetamin ophen 325 mg tablet TAKE 1-2 TABLETS BY MOUTH EVERY 4-6 HOURS NEEDED 07/02 completed Not Available Not Available Not Available prednisone 20 mg tablet TAKE 1 TABLET BY MOUTH EVERY DAY 07/02 completed Not Available Not Available Not Available prednisone 5 mg tablet 07/02 completed Not Available Not Available Not Available meclizine 12.5 mg tablet TAKE 1 TABLET BY MOUTH 3-4 TIMES PER DAY NEEDED. MAY USE 1-2 TABLETS NEEDED EVERY 6-8 HOURS FOR DIZZINESS 07/02 completed Not Available Not Available Not Available metronidazo le 500 mg tablet TAKE 1 TABLET BY MOUTH THREE TIMES DAILY 07/02 completed Not Available Not Available Not Available clopidogrel 75 mg tablet TAKE 1 TABLET BY MOUTH EVERY DAY active Not Available Not Available No t Available ciprofloxac in 250 mg tablet TAKE 1 TABLET BY MOUTH DAILY 07/02 completed Not Available Not Available Not Available ciprofloxac in 500 mg tablet TAKE 1 TABLET BY MOUTH TWICE DAILY FOR 7 DAYS 07/02 completed Not Available Not Available Not Available hydrocortis one 2.5 % topical cream with perineal applicator APPLY TOPICALLY TO HEMORRHOI DS TWICE DAILY NEEDED FOR IRRITATIO N 07/02 completed Not Available Not Available Not Available tamsulosin 0.4 mg capsule TK 1 C PO D 02/21 completed Not Available Not Available Not Available prednisone 2.5 mg tablet TAKE 2 TABLETS BY MOUTH EVERY DAY FOR 2 WEEKS THEN TAKE 1 TABLET BY MOUTH EVERY DAY FOR 2 WEEKS THEN STOP 07/02 completed Not Available Not Available Not Available cephalexin 500 mg capsule TAKE 1 CAPSULE BY MOUTH THREE TIMES DAILY active Not Available Not Available No t Available simvastatin 20 mg tablet TAKE 1 TABLET BY MOUTH EVERY DAY IN THE EVENING active Not Available Not Available No t Available nystatin 100,000 unit/gram topical cream APPLY TOPICALLY TO THE AFFECTED AREA TWICE DAILY 07/02 completed Not Available Not Available Not Available clotrimazol e-betametha sone 1 %-0.05 % topical cream APPLY EXTERNALL Y TO THE AFFECTED AREA TWICE DAILY 02/21 completed Not Available Not Available Not Available hydrochloro thiazide 12.5 mg capsule TAKE 1 CAPSULE BY MOUTH EVERY DAY 07/02 completed Not Available Not Available Not Available docusate sodium 100 mg capsule TAKE 1 CAPSULE BY MOUTH TWICE DAILY NEEDED FOR CONSTIPAT ION active Not Available Not Available No t Available omeprazole 20 mg capsule,del ayed release TAKE 1 CAPSULE BY MOUTH EVERY DAY BEFORE A MEAL active Not Available Not Available No t Available mupirocin 2 % topical ointment APPLY TOPICALLY TO THE AFFECTED AREA 1 TO 2 TIMES DAILY UNTIL HEALED 02/21 completed Not Available Not Available Not Available ibuprofen 600 mg tablet 07/02 completed Not Available Not Available Not Available methylpredn isolone 4 mg tablets in a dose pack FOLLOW PACKAGE DIRECTION S 07/02 completed Not Available Not Available Not Available ketoconazol e 2 % topical cream MIX IN 11 RATIO WITH DESONIDE CREAM AND APPLY A THIN LAYER TO THE AFFECTED AREAS AROUND HER MOUTH TWICE DAILY FOR UP TO 2 WEEKS. 07/02 completed Not Available Not Available Not Available ondansetron 4 mg disintegrat ing tablet DISSOLVE 1 TABLET ON THE TONGUE EVERY 4 TO 6 HOURS NEEDED FOR NAUSEA OR VOMITING 2023 active Not Available Not Available Not Avai lable amoxicillin 875 mg-potassiu m clavulanate 125 mg tablet 07/02 completed Not Available Not Available Not Available oxycodone 5 mg tablet TAKE ONE-HALF TO 1 TABLET BY MOUTH EVERY 4-8 HOURS NEEDED FOR PAIN 07/02 completed Not Available Not Available Not Available neomycin 3.5 mg/g-polymy brody B 10,000 unit/g-dexa meth 0.1 % eye oint 07/02 completed Not Available Not Available Not Available nitrofurant oin monohydrate /macrocryst als 100 mg capsule 07/02 completed Not Available Not Available Not Available mesalamine 1.2 gram tablet,susie yed release TAKE 4 TABLETS BY MOUTH EVERY DAY WITH A MEAL 07/02 completed Not Available Not Available Not Available hydrochloro thiazide 12.5 mg tablet active Not Available Not Available Not Available mesalamine rectal susp enema with cleansing wipes 4 gram/60 mL kit INSERT 60ML RECTALLY EVERY DAY AT BEDTIME 07/02 completed Not Available Not Available Not Available Vitals Date Recorded Body height Body mass index (BMI) Body weight Provider Name and Address Organization Details Last Updated DateTime 07/02/2023 154.94 cm 32.1 kg/m2 30030.7 g Feliz Maddox MD [address] [place] [phone] [place] [address] Urology 07/02/2023 15:17:55 Social History Question Answer Notes LastModified by Organizat ion Details LastModified Time Tobacco Smoking Status Never Smoker Feliz Maddox MD [address] [place], [place] [id number] [place] [address] Urology 02/21/2021 15:09:21 What Is Your Level Of Alcohol Consumption? None [email or web address] Information not available 02/21/2021 What Is Your Level Of Caffeine Consumption? None [email or web address] Information not available 02/21/2021 Are You Currently Employed? No [email or web address] Information not available 02/21/2021 What Was The Date Of Your Most Recent Tobacco Screening? 09/15/2021 [email or web address] Information not available 09/15/2021 What Is Your Relationship Status? Information not available 02/21/2021 Do You Use Any Illicit Or Recreational Drugs? No [email or web address] Information not available 02/21/2021 Do You Or Have You Ever Used Any Other Forms Of Tobacco Or Nicotine? No [email or web address] Information not available 02/21/2021 Sex: Female Functional Status None recorded. Mental Status None recorded. Family History Relationship Description Onset Age of this Age Resolved Age Notes Father Family history of pr ostate cancer Notes:Mother had a stroke Medical History Condition Response Other N High Blood Pressure N Kidney Stones Y Lung Disease N Depression N GERD/Acid Reflux N Sexually Transmitted Infection N Diabetes N Bleeding Disorder N Cancer N High Cholesterol Y Heart Disease Y Gynecological History Statement/Question Response Sexually Active? N Obstetrics History GPAL:G 3 P 0 0 0 0 Past Encounters Encounter ID Performer Location Encounter Start Date Encounter Closed Date Diagnosis/Indication [id number] Feliz Maddox MD [facility] [address] [place] [address] 07/02/2023 14:38:07 07/08/2023 16:06:51 Recurrent urinary tract infection Kidney stone Jerome hematuria Health Concerns Section Related Observation LastModified by Organization Detai ls LastModified Time None Recorded Concern Status LastModified by Organization Details LastModified Time None Recorded Payers Encounter Date Sequence Insurance Name Policy Number Policy Philip Covered Member ID Philip Member ID Guarantor Name 07/02/2023 1 [employer] - DOS ON OR AFTER 2020 - MEDICA GOVERNMENT PROGRAMS - ADVANTAGE SOLUTION (MEDICARE REPLACEMENT/A DVANTAGE - PPO) [id number] Dolly Chau [id number] Dolly Chau Notes Date Note Type Note Provider Name and Address Organization Details Recorded Time 07/02/2023 text/html HPI Notes: seen in [facility] ED for UTI last week had hematuria in April for 2 weeks. got cephalexin last week for her UTI. not had any recent imaging and was supposed to get imaging done but the tech is gone today. not had any flank pain. UA today mod RBC and sm leuk. has 5 more days of abx left. Feliz Maddox MD [address] [facility],[address], [place], [address], [facility] 07/02/2023 15:37:06 OBGyn Episode No OBEpisode recorded.
--- OUTSIDE RECORDS SUMMARY | 2023-07-09 10:29 | XMS_ITS | Encounter Summary ---
Author Name Unknown Organization [facility] Address [address] [place] [address] Care Team Providers Care Tank Tester Name Role Phone Sander Dacostaara Beverley Primary Care Provider Unav ailable Encounter Details Date Type Department Care Team Description 06/30/2023 Telephone [facility] [place] [address] [place] [address] Elisa Chung, RN [address] [place] [address] Social History Tobacco Use Types [...] Telephone Encounter - Yonas Carrasquillo MD - 06/30/2023 4:36 PM CST Ok thank you * Telephone Encounter - Elisa Chung RN - 06/30/2023 2:24 PM CST Pt had recheck urine protein on 06/18 after completing antibiotics for UTI. Pt states she wasn't feeling well so she went to the ER and she has another UTI. ER doc gave her more Keflex. Pt will f/u with Dr. Cannon on Wednesday (Urology). documented in this encounter Plan of Treatment Not on file documented as of this encounter Visit Diagnoses Not on filedocumented in this encounter Care Teams Tank Tester Relationship Specialty Start Date End Date Darleen Dacosta DO [address] [place] [address] PCP - General Family Medicine 05/13/23 documented as of this encounter
--- OUTSIDE RECORDS SUMMARY | 2023-07-09 10:29 | XMS_ITS | Encounter Summary ---
Author Name Unknown Organization [facility] Address [address] [place] [address] Care Team Providers Care Pin Drafter Operator Name Role Phone Darleen Dacosta DO Primary Care Provider Unav ailable Encounter Details Date Type Department Care Team Description 05/13/2023 Orders Only [facility] [place] [address] [place] [address] Acute kidney failure, not otherwise specified (HCC) Social History Tobacco Use Types Packs/Day Years Used Date Smoking Tobacco: Never Assessed Sex and Gender Information Value Date Recorded Sex Assigned at Not on file Gender Identity Not on file Sexual Orientation Not on file documented as of this encounter Plan of Treatment Not on file documented as of this encounter Visit Diagnoses Diagnosis Acute kidney failure, not otherwise specified (HCC) documented in this encounter Care Teams Pin Drafter Operator Relationship Specialty Start Date End Date Darleen [place] [address] PCP - General Family Medicine 05/13/23 documented as of this encounter
--- NOTE | 2023-07-09 11:00 | CT_ITS ---
[facility] [address] [facility] [address] Phone:?[phone] Fax:?[phone] Referring Physician Information: Feliz Maddox M.D. [address] [place] [address] Phone:?[phone] Fax:?[phone] Patient:Elizabeth Chau D.O.B:?1940 Sex:?Female Phone:?[phone] [facility] MRN:?[id number] Exam Date:?07/09/2023 EXAM: CT ABDOMEN AND PELVIS WITHOUT AND WITH CONTRAST, NO ORAL CONTRAST CLINICAL INFORMATION: Recurrent urinary tract infection. TECHNICAL INFORMATION: Axial [address] images of the abdomen and pelvis completed without IV contrast. Axial [address] images of the abdomen and pelvis completed during nephrogram and excretory phase following IV contrast administration 100 mL Isovue 370. Coronal and sagittal reformatted images performed. COMPARISON: CT abdomen pelvis 03/13/2022 INTERPRETATION: KUB: There are several (at least 10) bilateral renal calyceal calculi, measuring 2 to 5 mm maximal dimension. There are 3 adjacent (1 to 3 mm) distal right ureteral calculi, located approximately 3 cm proximal to the right ureterovesical junction and an additional 5 mm distal right ureteral calculus, located 1 cm proximal to right ureterovesical junction, image 118 series 2, representing interval change since 03/13/2022. Borderline minimal right hydroureter is noted. No left ureteral calculus or hydronephrosis is identified. Benign bilateral renal cortical cysts. No additional ureter or bladder abnormality. Abdomen: No liver lesion. No bile duct dilatation. Gallbladder with questionable mild sludge and/or small gallstones. No bile duct dilatation. The pancreas lesion. Benign calcified splenic granulomas. No splenic lesion. Normal caliber abdominal aorta with minimal atherosclerotic calcification. No pathologic mesenteric or retroperitoneal adenopathy. Left-sided periumbilical fat-containing hernia, hernia sac measuring approximately 84 x 60 x 28 mm. No bowel herniation, ischemia or obstruction. Pelvis: No additional pelvic mass, hernia, adenopathy or fluid collection. Lung bases: No nodule, infiltrate or pleural effusion. Musculoskeletal: Degenerative lumbar spine change. No focal skeletal lesion. CONCLUSION: 1. There are 4 distal right ureteral calculus (1 to 5 mm), located 1 to 3 cm proximal to right ureterovesical junction; with only borderline right hydroureter noted. Several (at least 10) bilateral renal calyceal calculi. [facility] is committed to minimizing radiation exposure while maintaining high-quality CT images. Technologists adjust the mA and/or kV according to each patient's size to optimize dose. Since we began voluntarily reporting to the [employer]'s Dose Index Registry, our average CT doses have been consistently lower than the national average. Electronically signed on 07/12/2023 9:19:00 AM by Fernando Byrd M.D.
== END 2023-07-09 10:25 | disposition home or self-care (01) ==
PROVIDERS: PCP Family Medicine; Visit Provider Urology
DX: N39.0 Urinary tract infection, site not specified (principal); N20.1 Calculus of ureter
CPT/HCPCS: 74178; Q9967

== ENCOUNTER 2023-07-14 13:26 | Outpatient (CLI) | payer OTHER, SELFPAY ==
--- OUTSIDE RECORDS SUMMARY | 2023-07-14 13:29 | XMS_ITS | Encounter Summary ---
Author Name Unknown Organization [place] Address [address] [place] [address] Care Team Providers Care Installation Technician Name Role Phone No Ref-Primary, Physician Primary Care Provider Reason for Visit * Auth/Cert (Routine) Specialty Diagnoses / Procedures Referred By Contac t Referred To Contact Gastroenterology Diagnoses Abnormal CT scan, gastrointestinal tract Abnormal CT scan, gastrointestinal tract [R93.3] Procedures [place] COLONOSCOPY W/WO BRUSH/WASH Colonoscopy Endoscopy [address] [place] [address] Referral ID Status Reason Start Date Expiration Date Visits Re quested Visits Authorized [id number] 1 1 Encounter Details Date Type Department Care Team (Late st Contact Info) Description 10/26/2022 1:05 PM CDT - 10/26/2022 1:55 PM CDT Surgery [facility] Endoscopy [place] [address] [place] [address] Connor London MD [facility] [address] [place] [address] Colonoscopy Surgery Details Date/Time Status Location [...] to get her instructions for prep. Called [facility] and spoke to Addis. She was able to give me her daughters' numbers. Fely's number: [phone] (VM not set up) and Luna Chau's number: [phone] (LM asking for a call back). Pt [...] Case Report Surgical Pathology Report ? Case: [id number] ? Authorizing Provider: ??Connor London MD ?Collected: ? 10/26/2022 02:02 PM ? Ordering Location: ? [facility] ?Received: ?10/26/2022 03:17 PM ? Endoscopy [place] ? Pathologist: ? Ochoa Peoples MD PhD [...] submitted in one cassette. (LUZ ELENA [facility]) 10/27/2022 1:14 PM CDT LABORATORY Microscopic Description Microscopic examination was performed. 10/27/2022 1:14 PM T LABORATORY Performing Labs The technical component of this testing was completed at [facility] 10/27/2022 1:14 PM CDT [...] 3:17 PM CDT Connor ELLIS - CICI [facility] Organization Address City/State/ZIP Co de Phone Number [facility] Acute Care Lab [address] [facility] (1st floor, no room number) [place] [address], [facility] [phone] * COLONOSCOPY (10/26/2022 12:43 PM CDT) [facility] Signature COLONOSCOPY [facility] Patient Name: Dolly Bliss Chau ?Procedure Date: [...] monitored continuously. The ?Olympus Pediatric Colonoscope, Model #[id number]-LZ229Q, ?Endora #251, SN#[id number] was introduced through the ?anus and advanced [...] Note Initiated On: 10/26/2022 12:43 PM MRN: ?[id number] Procedure Date: ? 10/26/2022 12:43:47 PM Scope [...] on Wed10/26/22 at 1255, For 1 dose, [place] throat with 1 spray 5 minutes prior [...] on Wed10/26/22 at 1255, For 1 dose, [place] throat with 1 spray 5 minutes prior [...] provider. documented in this encounter Care Teams Installation Technician Relationship Specialty Start Date End Date No Ref-Primary, Physician PCP - General 10/23/22 documented as of this encounter
--- OUTSIDE RECORDS SUMMARY | 2023-07-14 13:29 | XMS_ITS | Clinical Summary ---
Author Name Unknown Organization [place] Address [address] [place] [address] Care Team Providers Care Story Teller Name Role Phone No Ref-Primary, Physician Primary [...] age to complete this topic Care Teams Story Teller Relationship Specialty Start Date End Date No Ref-Primary, Physician PCP - General 10/23/22
--- OUTSIDE RECORDS SUMMARY | 2023-07-14 13:29 | XMS_ITS | Encounter Summary ---
Author Name Unknown Organization [place] Address [address] [place] [address] Care Team Providers Care Dental Appliance Fixer Name Role Phone Unavailable Primary Care Provider Unavailabl e Reason for Visit * Reason Onset Date Comments Procedure 10/13/2022 COLONOSCOPY Encounter Details Date Type Department Care Team (Late st Contact Info) Description 10/13/2022 Telephone [facility] Gastroenterology Clinic [address] 4[address] [place] [address] None Procedure (COLONOSCOPY) Social History Tobacco Use Types Packs/Day Years Used Date Smoking Tobacco: Never Assessed Sex and Gender Information Value Date Recorded Sex Assigned at Not on file Gender Identity Not on file Sexual Orientation Not on file documented as of this encounter Miscellaneous Notes * Telephone Encounter - Alison Phillips - 10/20/2022 1:27 PM CDT [facility] CALLED CHECKING ON TIME AND DATE. I [...] Gave us a new extension which is [phone] and that will route to Aidee. * Telephone Encounter - Gladis Howard - 10/13/2022 3:24 PM CDT Melvin ([facility] [phone] ext [phone]) reached out to add patient on for [...]
--- OUTSIDE RECORDS SUMMARY | 2023-07-14 13:29 | XMS_ITS | Encounter Summary ---
Author Name Unknown Organization [place] Address [address] [place] [address] Care Team Providers Care Inspector Ball Points Name Role Phone Unavailable Primary Care Provider Unavailabl e Reason for Referral * Consultation (Routine: Next available opening) - Pending Review Specialty Diagnoses / Procedures Referred By Conttiffanie t Referred To Contact Gastroenterology Diagnoses Abnormal CT scan Connor London MD [facility] [address] [facility] [place] [id number] Referral ID Status Reason Start Date Expiration Date V isits Requested Visits Authorized [id number] Pending Review 10/22/2022 10/22/2023 1 1 Question Answer Service: Lower Endoscopy Lower Endoscopy Type: Colonoscopy Reason for Colonoscopy: Diagnostic Sedation Concerns: No medical conditions affecting sedation Sedation Type: Moderate/Conscious Sedation Preferred Location: [facility] Scheduling Instructions: [facility] will call you to coordinate your care as prescribed by the provider. If you don? t hear from a liability claims representative within 2 business days, please call . Comments Please be aware that coverage of these services is subject to the terms and limitations of your health insurance plan. Call member services at your health plan with any benefit or coverage questions. [facility] will call you to coordinate your care as prescribed by the provider. If you don? t hear from a liability claims representative within 2 business days, please call . Encounter Details Date Type Department Care Team (Late st Contact Info) Description 10/22/2022 Transcribe Orders [facility] Endoscopy [place] [address] [place] [address] Connor London MD [facility] [address] [facility] [place] [id number] scan (Primary Dx) Social History Tobacco Use Types Packs/Day Years Used Date Smoking Tobacco: Never Assessed Sex and Gender Information Value Date Recorded Sex Assigned at Not on file Gender Identity Not on file Sexual Orientation Not on file documented as of this encounter Plan of Treatment Scheduled Referrals Name Type Priority Associated Diagnoses Orde r Schedule Adult GI Fruit Receiver 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
--- OUTSIDE RECORDS SUMMARY | 2023-07-14 13:29 | XMS_ITS | Encounter Summary ---
Author Name Unknown Organization [place] Address [address] [place] [address] Care Team Providers Care Equine Dentist Name Role Phone No Ref-Primary, Physician Primary [...] on filedocumented in this encounter Care Teams Equine Dentist Relationship Specialty Start Date End Date No Ref-Primary, Physician PCP - General 10/23/22 documented as of this encounter
--- OUTSIDE RECORDS SUMMARY | 2023-07-14 13:29 | XMS_ITS | Encounter Summary ---
Author Name Unknown Organization [place] Address [address] [place] [address] Care Team Providers Care Tile Layer Name Role Phone No Ref-Primary, Physician Primary Care Provider Reason for Visit * Auth/Cert (Routine) Specialty Diagnoses / Procedures Referred By Contac t Referred To Contact Gastroenterology Diagnoses Abnormal CT scan, gastrointestinal tract Abnormal CT scan, gastrointestinal tract [R93.3] Procedures [place] COLONOSCOPY W/WO BRUSH/WASH Colonoscopy [facility] [address] [place] [address] Referral ID Status Reason Start Date Expiration Date Visits Re quested Visits Authorized 1 1 Encounter Details Date Type Department Care Team (Late st Contact Info) Description 10/26/2022 12:03 PM CDT - 10/26/2022 3:02 PM CDT Hospital Encounter [facility] Endoscopy [place] [address] [place] [address] Link, Connor Pickard MD [facility] [address] [place] [phone] Discharge Disposition: Home or Self Care Social [...] give me her daughters' numbers. Fely's number: [phone] (VM not set up) and Luna Chau's number: [phone] (LM asking for a call back). Pt [...] Case Report Surgical Pathology Report ? Case: [id number] ? Authorizing Provider: ??Link, Connor Pickard MD ?Collected: ? 10/26/2022 02:02 PM ? Ordering Location: ? [facility] ?Received: ?10/26/2022 03:17 PM ? Endoscopy [place] ? Pathologist: ? Ochoa Peoples MD PhD [...] for dysplasia or malignancy. 10/27/2022 1:14 PM [facility] Comment The differential diagnosis of an active chronic colitis pattern include not only idiopathic inflammatory bowel disease (such as Crohn's and Ulcerative colitis) but also chronic infections (such as Yersina), medications (eg. NSAIDs), chronic diverticular disease, Behcet's disease among others. 10/27/2022 1:14 PM [facility] Clinical Information Procedure: Colonoscopy COLONOSCOPY, WITH [...] submitted in one cassette. (LUZ ELENA [facility]) 10/27/2022 1:14 PM CDT LABORATORY Microscopic Description Microscopic examination was performed. 10/27/2022 1:14 PM CDT LABORATORY Performing Labs The technical component of this testing was completed at [facility] 10/27/2022 1:14 PM CDT LABORATORY [...] CDT Connor ELLIS - [facility] Acute Care Lab [address] Lab (1st floor, no room number) [place] [address], [facility] [phone] * COLONOSCOPY (10/26/2022 12:43 PM CDT) [facility] COLONOSCOPY [facility] Patient Name: Dolly Chau ?Procedure Date: 10/26/2022 [...] monitored continuously. The ?Olympus Pediatric Colonoscope, Model #[id number]-[id number], ?Endora #251, SN#[id number] was introduced through the ?anus and advanced [...] Note Initiated On: 10/26/2022 12:43 PM MRN: ?[id number] Procedure Date: ? 10/26/2022 12:43:47 PM Scope [...] on Wed10/26/22 at 1255, For 1 dose, [place] throat with 1 spray 5 minutes prior [...] on Wed10/26/22 at 1255, For 1 dose, [place] throat with 1 spray 5 minutes prior [...] provider. documented in this encounter Care Teams Tile Layer Relationship Specialty Start Date End Date No Ref-Primary, Physician PCP - General 10/23/22 documented as of this encounter
--- OUTSIDE RECORDS SUMMARY | 2023-07-14 13:29 | XMS_ITS | Referral Summary ---
Author Name Unknown Organization [place] Address [address] [place] [address] Care Team Providers Care Call Out Operator Name Role Phone No Ref-Primary, Physician Primary [...] of Treatment Not on file Care Teams Call Out Operator Relationship Specialty Start Date End Date No Ref-Primary, Physician PCP - General 10/23/22
--- OUTSIDE RECORDS SUMMARY | 2023-07-14 13:29 | XMS_ITS | Encounter Summary ---
Author Name Unknown Organization [place] Address [address] [place] [address] Care Team Providers Care Rn Hospice Name Role Phone Unavailable Primary Care Provider Unavailabl e Reason for Visit * Reason Onset Date Comments Procedure 10/22/2022 COLONOSCOPY Encounter Details Date Type Department Care Team (Late st Contact Info) Description 10/22/2022 Telephone [facility] Gastroenterology Clinic [address] 4[address] [place] [address] None Procedure (COLONOSCOPY) Social History [...] SEDATION TYPE Y Are you active on [employer]? JOSH LINK Ordering/Referring Provider? MEDICA What type of coverage do you have? N Have you had a positive covid test in the last 14 days? 30.2 1. BMI [BMI 40+ - review exclusion criteria& smart-phrase document] Y 2. Are you able to give consent for your medical care? 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 Are you taking any prescription pain medications on a routine schedule (ex narcotics: oxycodone, roxicodone, oxycontin, and percocet)? [motor polarizer] 3a. EXTENDED PREP What kind of prescription? [...] 3-5 days between bowel movements? 23. Preferred [facility] for Pre Prescription [facility] - [address] [place] [address] - CLOSING REMINDERS - ??? You will [...] Lower Endoscopy [Colonoscopy] Type of Procedure Scheduled [facility] Location MIRALAX GATORADE WITHOUT MAGNEISUM CITRATE Which [...] for call back to coordinate with Melvin ([facility] [phone] ext [phone]), Addis ([facility] [phone] ext [phone]) and Aidee ([facility] [phone] ext [phone]) If [facility] rep calls back please inquire if instructions will be sent by [facility] or if needs to be sent by [facility]. No orders in patient chart, please request for order as well. documented in this encounter Plan of Treatment Not on file documented as of this encounter Visit Diagnoses Not on filedocumented in this encounter
--- OUTSIDE RECORDS SUMMARY | 2023-07-14 13:30 | XMS_ITS | Clinical Summary ---
Author Name Unknown Organization [facility] Address [place], [place] [address] Care Team Providers Care Net Lead Developer Name Role Phone Bk Sigala MD Unavailable [phone] Yennifer Baird MD Unavailable Darleen Dacosta DO Primary Care Provider Divya Dudley MD Unavailable [phone] Jessica Gibson NP Unavailable Allergies Active Allergy [...] Last Assessment & Plan: hydroxyurea for PCV. Darleen Dacosta D.OMarcel 09/28/2022 12:44 PM Non-ST elevation [...] Encounters Date Type Department Care Team Description 07/14/[address] [address] Darleen Dacosta DO Error-please disregard 07/09/2023 1:00 PM ICE CREAM MAKER Orders Only [facility] [address] [place] [address] [place], [place] Outside Order (Varsha) 07/09/2023 Orders Only [facility] SERVICES Scanner 1 scan: (1-Ord) [facility], CT UROGRAM, 07/09/2023 07/09/2023 Travel 07/07/[address] [phone] Divya Dudley MD Lab (pre-appointment labs schedule 07/19) 07/05/2023 Orders Only [facility] [address] [place] [address] Darleen Dacosta DO Outside Order (Ordered by Feliz Maddox) 07/05/[address] [address] Darleen Dacosta DO Follow Up (UA test) 07/05/2023 Nurse Triage [facility] [address] [place] [address] Darleen Dacosta DO Abnormal Stool 06/18/2023 1:00 PM ICE CREAM MAKER Orders Only [facility] [address] [place] [address] Lab, [place] Outside Order (Dr. Yonas Carrasquillo) 06/18/2023 Travel 2023 Orders Only [facility] [address] [place] [address] Darleen Dacosta DO Outside Order (Ordered by Dr. Yonas Jain... 06/07/2023 Telephone [facility] [address] [place] [address] Darleen Dacosta DO Results 05/28/2023 10:07 AM ICE CREAM MAKER - 05/28/2023 11:59 PM ICE CREAM MAKER Hospital Encounter [facility] [address] [place] [address] Left sided ulcerative (chronic) colitis (HC) (Primary Dx) 05/28/2023 9:00 AM ICE CREAM MAKER Office Visit [facility] [address] [place] [address] Anne Mccracken PA Derm Problem (Two days ago she noticed her belly button was sore and looked irritated. It is only painful to the touch. ) 05/28/2023 Travel 05/27/2023 Nurse Triage [facility] [address] [place] [address] Darleen Dacosta DO Derm Problem 05/25/2023 Telephone [facility] [address] [place] [address] Jessica Gibson WORT EXTRACTOR Appointment 05/21/2023 9:00 AM ICE CREAM MAKER Office Visit [facility] [address] [place] [address] Darleen Dacosta DO Kidney Problem (nausea all the time) 05/21/2023 Hospital/[facility] Telephone Encounter [facility] [address] [place] [address] Juju Ibrahim RN Pre Procedure (PVP) 05/21/2023 Refill [facility] [address] [place] [address] Darleen Dacosta DO Refill Request (Hydroxyurea) 05/21/2023 Travel 05/18/2023 Telephone [facility] [address] [place] [address] Jessica Gibson, WORT EXTRACTOR Appointment 05/18/2023 Telephone [facility] [address] [place] [address] Darleen Dacosta DO Questions 05/16/2023 Orders Only [facility] Scanner 1 scan: (1-Ord) [facility], CHEST, 05/16/2023 05/13/2023 11:00 AM ICE CREAM MAKER Ancillary Procedure [facility] [address] [place] [address] 05/13/2023 8:45 AM ICE CREAM MAKER Office Visit [facility] [address] [place] [address] VotelRiver MD Urinary Problem (Hematuria, x 5 days) [...] Comments Blood Pressure 135/67 05/28/2023 10:32 AM ICE CREAM MAKER Pulse 94 05/28/2023 10:32 AM ICE CREAM MAKER Temperature 36.6 ??C (97.9 ??F) 05/28/2023 10:[address] Respiratory Rate 18 05/28/2023 10:32 AM ICE CREAM MAKER Oxygen Saturation 97% 05/28/2023 10:32 AM ICE CREAM MAKER Inhaled Oxygen Concentration - - Weight 75.3 kg (166 lb) 05/28/2023 9:01 AM ICE CREAM MAKER Height 154.9 cm (5' 1) 05/13/2023 8:45 AM ICE CREAM MAKER Body Mass Index 31.37 05/13/2023 8:45 AM ICE CREAM MAKER Plan of Treatment Upcoming Encounters Date Type Department Care Team (Late st Contact Info) Description 07/19/2023 10:30 AM ICE CREAM MAKER Orders Only [facility] [address] [place] [address] Lab, [place] 07/22/2023 11:00 AM ICE CREAM MAKER Office Visit [facility] [address] [place] [phone] Divya Dudley MD [address] [place] [address] 07/22/2023 12:00 PM ICE CREAM MAKER Appointment [facility] [address] [place] [address] Health Maintenance Due Date Last Done Comments [...] history exists Medical Devices Implanted Type Area Basketball Commentator Device Identifier Shelf Expiration Date Model / Serial / Lot Stent Uret [id number] W/Tether - [id number] Implanted:Qty: 1 on 05/04/2008 at [facility] Left: Ureter [employer] Miguelina [id number]# / / [id number] Stent Uret [id number] Silhouette - [id number] Implanted:Qty: 1 on 12/28/2018 by Ryley Dunbar MBBS at [facility] Left: Ureter [employer] [id number]# / / [id number] Mesh Pelvic [id number] Gynemesh - [id number] Implanted:Qty: 1 on 07/15/2021 by Jessica Campbell MD at [facility] Pelvis [employer]om[employer] H / Uro 04/22/2026 [id number] / / [id number] Explanted Type Area Basketball Commentator Device Identifier Shelf Expiration Date Model / Serial / Lot Power Port Isp Mri 6fr [id number] - [id number] Implanted:Qty : 1 on 12/14/2019 by Nida Bello DO at [facility] Explanted:Qty : 1 on 07/17/2020 by Nida Bello DO at [facility] Right: Subclavian Vein [employer] 01/21/2021 [id number] / / [id number] Procedures Procedure Name Priority Date/Time Associated Diagnosis Comments URINALYSIS MICROSCOPIC Routine 4 1:05 PM ICE CREAM MAKER Urinary tract infection, site not specified URINE CULTURE Routine 07/09/2023 1:05 PM ICE CREAM MAKER Urinary tract infection, site not specified UA W/ SEDIMENT EXAM REFLEXED PER CRITERIA Routine 07/09/2023 1:05 PM ICE CREAM MAKER Urinary tract infection, site not specified SCAN-CT INTERPRETATION 12:00 AM ICE CREAM MAKER URINE ALBUMIN TO CREATININE RATIO, RANDOM Routine 06/18/2023 12:49 PM ICE CREAM MAKER Gross hematuria Hypouricemia PROTEIN/CREAT RATIO,URINE Routine 06/18/2023 12:49 PM ICE CREAM MAKER Gross hematuria Hypouricemia URINALYSIS MICROSCOPIC Routine 9:48 AM ICE CREAM MAKER Acute renal failure superimposed on chronic kidney disease, unspecified acute renal failure type, unspecified CKD stage (HC) UA W/ SEDIMENT EXAM REFLEXED PER CRITERIA Add On 05/21/2023 9:48 AM ICE CREAM MAKER Acute renal failure superimposed on chronic kidney disease, unspecified acute renal failure type, unspecified CKD stage (HC) PROTEIN/CREAT RATIO,URINE Routine 05/21/2023 9:48 AM ICE CREAM MAKER Acute renal failure superimposed on chronic kidney disease, unspecified acute renal failure type, unspecified CKD stage (HC) Hematuria, unspecified type CBC WITH AUTO DIFFERENTIAL Routine 05/21/2023 9:40 AM ICE CREAM MAKER Acute renal failure superimposed on chronic kidney disease, unspecified acute renal failure type, unspecified CKD stage (HC) Hematuria, unspecified type Microscopic colitis, unspecified microscopic colitis type Polycythemia vera (HC) Anemia, macrocytic IMMUNOFIXATION,SERUM Routine 05/21/2023 9:40 AM ICE CREAM MAKER Acute renal failure superimposed on chronic kidney disease, unspecified acute renal failure type, unspecified CKD stage (HC) Hematuria, unspecified type PROTEIN ELP SERUM W REFLEX Routine 05/21/2023 9:40 AM ICE CREAM MAKER Acute renal failure superimposed on chronic kidney disease, unspecified acute renal failure type, unspecified CKD stage (HC) Hematuria, unspecified type C4 COMPLEMENT Routine 05/21/2023 9:40 AM ICE CREAM MAKER Acute renal failure superimposed on chronic kidney disease, unspecified acute renal failure type, unspecified CKD stage (HC) Hematuria, unspecified type C3 COMPLEMENT Routine 05/21/2023 9:40 AM ICE CREAM MAKER Acute renal failure superimposed on chronic kidney disease, unspecified acute renal failure type, unspecified CKD stage (HC) Hematuria, unspecified type ANCA PANEL FOR VASCULITIS Routine 05/21/2023 9:40 AM ICE CREAM MAKER Acute renal failure superimposed on chronic kidney disease, unspecified acute renal failure type, unspecified CKD stage (HC) Hematuria, unspecified type ANTINUCLEAR ANTIBODY BY IFA Routine 05/21/2023 9:40 AM ICE CREAM MAKER Acute renal failure superimposed on chronic kidney disease, unspecified acute renal failure type, unspecified CKD stage (HC) Hematuria, unspecified type COMP METABOLIC PANEL Routine 05/21/2023 9:40 AM ICE CREAM MAKER Acute renal failure superimposed on chronic kidney disease, unspecified acute renal failure type, unspecified CKD stage (HC) Hematuria, unspecified type CBC WITH AUTO DIFFERENTIAL Routine 05/21/2023 9:40 AM ICE CREAM MAKER Acute renal failure superimposed on chronic kidney disease, unspecified acute renal failure type, unspecified CKD stage (HC) Hematuria, unspecified type Microscopic colitis, unspecified microscopic colitis type Polycythemia vera (HC) Anemia, macrocytic SCAN-RADIOLOGY REPORT 05/16/2023 12:[address] ABDOMEN PELVIS STONE PROTOCOL WO STAT 05/13/2023 10:19 AM ICE CREAM MAKER Hematuria, unspecified type CREATININE,ISTAT Routine 05/13/2023 10:1 1 AM ICE CREAM MAKER Observation or evaluation for suspected condition URINALYSIS MICROSCOPIC Routine 8:40 AM ICE CREAM MAKER Hematuria, unspecified type UA W/ SEDIMENT EXAM REFLEXED PER CRITERIA Routine 05/13/2023 8:40 AM ICE CREAM MAKER Hematuria, unspecified type from Last 3 Months Results * (ABNORMAL) URINALYSIS MICROSCOPIC (07/09/2023 1:05 PM ICE CREAM MAKER) Only the most recent of3 resultswithin the time period is included. RBC 6-10(A) 0-2, None Seen /HPF 07/09/2023 1:10 PM ICE CREAM MAKER [facility] WBC 11-25(A) 0-2, 3-5, None Seen /HPF 07/09/2023 1:10 PM ICE CREAM MAKER [facility] BACTERIA Few None Seen, Rare, Few Bacteria/H PF 07/09/2023 1:10 PM ICE CREAM MAKER [facility] EPITHELIAL CELLS Few None Seen, Few Epi/HPF 07/09/2023 1:10 PM ICE CREAM MAKER [facility] Urine URINE SPECIMEN / Unknown Non-Blood / Unknown 07/09/2023 1:05 PM ICE CREAM MAKER 07/09/2023 1:05 PM ICE CREAM MAKER Darleen Dacosta DO URINE [facility] [address] [place] [address], * (ABNORMAL) URINE CULTURE (07/09/2023 1:05 PM ICE CREAM MAKER) CULTURE RESULT(A) 07/12/2023 6:44 AM ICE CREAM MAKER [facility] CULTURE >100,000 CFU/mL Escherichia coli 07/12/2023 6:44 AM ICE CREAM MAKER [facility] Urine URINE SPECIMEN / Unknown Non-Blood / Unknown 07/09/2023 1:05 PM ICE CREAM MAKER 07/09/2023 1:05 PM ICE CREAM MAKER Narrative Organism Antibiotic Method Susceptibility Escherichia coli TRIMETHOPRIM/SULF <=1/19: S Escherichia coli AMPICILLIN <=2: S Escherichia coli CEFAZOLIN-UC <=4: S Comment:Cefazolin-UC interpretations are for therapy of uncomplicated UTIs due to E.coli, K.pneumoniae, or P.mirablis. Cefazolin breakpoint is used as a surrogate to predict results for the oral agents - cefdinir, cefuroxime, and cephalexin, when used for therapy of uncomplicated UTIs due to E coli, K, pneumoniae, and P. mirabilis. The FDA recommends cefadroxil susceptibility can be deduced from cefazolin. Escherichia coli GENTAMICIN <=1: S Escherichia coli CEFTRIAXONE <=1: S Escherichia coli CEFTAZIDIME <=1: S Escherichia coli LEVOFLOXACIN <=0.12: S Escherichia coli CIPROFLOXACIN <=0.25: S Escherichia coli PIPERACILLIN/TAZO <=4: S Escherichia coli AMPICILLIN/SULBACTAM <=2: S Escherichia coli CEFEPIME <=1: S Escherichia coli TOBRAMYCIN <=1: S Escherichia coli MEROPENEM <=0.25: S Escherichia coli NITROFURANTOIN <=16: S Darleen Dacosta DO MICROBIOLOGY [facility] [address] [place] [address], [place] * (ABNORMAL) UA W/ SEDIMENT EXAM REFLEXED PER CRITERIA (07/09/2023 1:05 PM ICE CREAM MAKER) Only the most recent of3 resultswithin the time period is included. COLOR Yellow Yellow Color 07/09/2023 1:10 PM ICE CREAM MAKER [facility] CLARITY Slightly Cloudy(A) Clear Clarity 07/09/2023 1:10 PM ICE CREAM MAKER [facility] SPECIFIC GRAVITY,URINE 1.010 1.010, 1.015, 1.020, 1.025 07/09/2023 1:10 PM ICE CREAM MAKER [facility] PH,URINE 6.0 6.0, 7.0, 8.0, 5.5, 6.5, 7.5, 8.5 07/09/2023 1:10 PM ICE CREAM MAKER [facility] UROBILINOGEN, QUALITATIVE Normal Normal EU/dl 07/09/2023 1:10 PM ICE CREAM MAKER [facility] PROTEIN, URINE Negative Negative mg/dL 07/09/2023 1:10 PM ICE CREAM MAKER [facility] GLUCOSE, URINE Negative Negative mg/dL 07/09/2023 1:10 PM ICE CREAM MAKER [facility] KETONES,URINE Negative Negative mg/dL 07/09/2023 1:10 PM ICE CREAM MAKER [facility] BILIRUBIN,URI NE Negative Negative 07/09/2023 1:10 PM ICE CREAM MAKER [facility] OCCULT BLOOD,URINE Trace(A) Negative 07/09/2023 1:10 PM ICE CREAM MAKER [facility] NITRITE Negative Negative 07/09/2023 1:10 PM ICE CREAM MAKER [facility] LEUKOCYTE ESTERASE Small(A) Negative 07/09/2023 1:10 PM ICE CREAM MAKER [facility] Urine URINE SPECIMEN / Unknown Non-Blood / Unknown 07/09/2023 1:05 PM ICE CREAM MAKER 07/09/2023 1:05 PM ICE CREAM MAKER Darleen Dacosta DO URINE [facility] [address] [place] [address], * SCAN-CT INTERPRETATION (07/09/2023 12:00 AM ICE CREAM MAKER) Anatomical Region Laterality Modality Other Scanner OTHER * (ABNORMAL) PROTEIN/CREAT RATIO,URINE (06/18/2023 12:49 PM ICE CREAM MAKER) Only the most recent of2 resultswithin the time period is included. PROTEIN QUANT,RAND URINE 59(H) 1 - 14 mg/dL 06/19/2023 12:[address] [facility] CREAT,RANDOM URINE 140.0 28.0 - 217.0 mg/dL 06/19/2023 12:[address] [facility] PROT/CREAT RATIO,UR 0.4(H) <0.2 06/19/2023 12:[address] [facility] Urine URINE SPECIMEN / Unknown Non-Blood / Unknown 06/18/2023 12:49 PM ICE CREAM MAKER 06/18/2023 12:49 PM ICE CREAM MAKER Darleen Brinkmorgan DO URINE [facility] [address] [place] [address], * (ABNORMAL) URINE ALBUMIN TO CREATININE RATIO, RANDOM (06/18/2023 12:49 PM ICE CREAM MAKER) ALB RAND URINE 152.0 mg/L 06/19/2023 12:05 AM ICE CREAM MAKER [facility] CREATININE,URIN E 1.44 g/L 06/19/2023 12:05 AM ICE CREAM MAKER [facility] ALBUMIN TO CREATININE RATIO,RAND UR 105.6(H) <30.0 mg/g creat 06/19/2023 12:05 AM ICE CREAM MAKER [facility] Urine URINE SPECIMEN / Unknown Non-Blood / Unknown 06/18/2023 12:49 PM ICE CREAM MAKER 06/18/2023 12:49 PM ICE CREAM MAKER Narrative [facility] - 06/19/2023 12:05 AM ICE CREAM MAKER If Albumin to Creatinine Ratio is elevated, consider the following: ? Elevations seen with incipient nephropathy associated ?? with diabetes mellitus or hypertension. Stress, exercise,hematuria, ?? and urinary tract infection may also produce elevated results. If clinically indicated, confirm with ?24 Hour Albumin to Creatinine Ratio. ?? Darleen Lowery Olesya DO URINE Performing Organization Address City/[facility] Co de Phone Number [facility] [address] [place] [address], * (ABNORMAL) PROTEIN ELP SERUM W REFLEX (05/21/2023 9:40 AM ICE CREAM MAKER) ELP,ALBUMIN 3.46 3.31 - 5.31 g/dL 05/26/2023 5:53 PM ICE CREAM MAKER [facility] ELP,ALPHA 1 0.37 0.19 - 0.42 g/dL 05/26/2023 5:53 PM ICE CREAM MAKER [facility] ELP,ALPHA 2 0.92 0.44 - 1.03 g/dL 05/26/2023 5:53 PM ICE CREAM MAKER [facility] ELP,GAMMA 1.00 0.59 - 1.46 g/dL 05/26/2023 5:53 PM ICE CREAM MAKER [facility] ELP,BETA 1.14(H) 0.52 - 1.05 g/dL 05/26/2023 5:53 PM ICE CREAM MAKER [facility] MONOCLONAL PEAK 1 0.11 <=0.00 g/dL 05/26/2023 5:53 PM ICE CREAM MAKER [facility] ELP INTERP,SERUM Interval study shows a decrease in magnitude of previously identified monoclonal peak. Previous Study: 0.19 gm/dL on 09/01/2022. Interpreted and electronically signed by: Sheela Monroy MD 05/26/2023 5:53 PM [facility] PROTEIN,TOTAL 6.9 6.0 - 8.0 g/dL 05/26/2023 5:53 PM ICE CREAM MAKER [facility] Blood BLOOD SPECIMEN / Unknown Butterfly / Unknown 05/21/2023 9:40 AM ICE CREAM MAKER 05/21/2023 9:43 AM ICE CREAM MAKER Darleen Dacosta DO CHEMISTRY Performing Organization Address City/[facility]/ZIP Co de Phone Number [facility] [address] [place] [address], * ANTINUCLEAR ANTIBODY BY IFA (05/21/2023 9:40 AM ICE CREAM MAKER) ANTINUCLEAR ANTIBODY (SOHAIL) Negative Negative 05/25/2023 1:50 PM ICE CREAM MAKER [facility] Blood BLOOD SPECIMEN / Unknown Butterfly / Unknown 05/21/2023 9:40 AM ICE CREAM MAKER 05/21/2023 9:43 AM ICE CREAM MAKER Narrative [facility] - 05/25/2023 1:50 PM ICE CREAM MAKER Method: SOHAIL screen performed by (IFA) on HEP-2 substrate, IgG Darleen Dacosta DO CHEMISTRY [facility] [address] [place] [address], * (ABNORMAL) CBC WITH AUTO DIFFERENTIAL (05/21/2023 9:40 AM ICE CREAM MAKER) [facility] Signature WHITE BLOOD COUNT 5.3 4.5 - 11.0 thou/cu mm 05/21/2023 9:49 AM [facility] RED BLOOD COUNT 3.60(L) 4.00 - 5.20 mil/cu mm 05/21/2023 9:49 AM [facility] HEMOGLOBIN 12.9 12.0 - 16.0 g/dL 05/21/2023 9:49 AM [facility] HEMATOCRIT 40.8 33.0 - 51.0 % 05/21/2023 9:49 AM [facility] MCV 113(H) 80 - 100 fL 05/21/2023 9:49 AM [facility] MCH 35.8(H) 26.0 - 34.0 pg 05/21/2023 9:49 AM [facility] MCHC 31.6(L) 32.0 - 36.0 g/dL 05/21/2023 9:49 AM [facility] RDW 17.2(H) 11.5 - 15.5 % 05/21/2023 9:49 AM [facility] PLATELET COUNT 466(H) 140 - 440 thou/cu mm 05/21/2023 9:49 AM [facility] MPV 9.7 6.5 - 11.0 fL 05/21/2023 9:49 AM [facility] % NEUT 72.1 % 05/21/2023 9:49 AM [facility] % LYMPH 15.1 % 05/21/2023 9:49 AM [facility] % MONO 9.2 % 05/21/2023 9:49 AM [facility] % EOS 1.3 % 05/21/2023 9:49 AM [facility] % BASO 2.3 % 05/21/2023 9:49 AM [facility] ABSOLUTE NEUTROPHILS 3.8 1.7 - 7.0 thou/cu mm 05/21/2023 9:49 AM ICE CREAM MAKER [facility] ABSOLUTE LYMPHOCYTES 0.8(L) 0.9 - 2.9 thou/cu mm 05/21/2023 9:49 AM ICE CREAM MAKER [facility] ABSOLUTE MONOCYTES 0.5 <0.9 thou/cu mm 05/21/2023 9:49 AM ICE CREAM MAKER [facility] ABSOLUTE EOSINOPHILS 0.1 <0.5 thou/cu mm 05/21/2023 9:49 AM ICE CREAM MAKER [facility] ABSOLUTE BASOPHILS 0.1 <0.3 thou/cu mm 05/21/2023 9:49 AM ICE CREAM MAKER [facility] Blood BLOOD SPECIMEN / Unknown Butterfly / Unknown 05/21/2023 9:40 AM ICE CREAM MAKER 05/21/2023 9:43 AM ICE CREAM MAKER Darleen Brinkt DO HEMATOLOGY Performing Organization Address City/State/[facility] Co de Phone Number [facility] [address] [place] [address], * (ABNORMAL) IMMUNOFIXATION,SERUM (05/21/2023 9:40 AM ICE CREAM MAKER) IGG 960.14 610.30 - 1,616.00 mg/dL 05/26/2023 5:53 PM ICE CREAM MAKER [facility] IGA 645.05(H) 84.50 - 499.00 mg/dL 05/26/2023 5:53 PM ICE CREAM MAKER [facility] IGM 49.64 35.00 - 242.00 mg/dL 05/26/2023 5:53 PM ICE CREAM MAKER [facility] EN[facility] LABORAT[facility] IFIX INTERP,SERUM Immunofixation on serum [...] by: Sheela Monroy MD 05/26/2023 5:53 PM [facility] EN[facility] Blood BLOOD SPECIMEN / Unknown Butterfly / Unknown 05/21/2023 9:40 AM ICE CREAM MAKER 05/21/2023 9:43 AM ICE CREAM MAKER Darleen Dacosta DO CHEMISTRY Performing Organization Address [facility] Co de Phone Number [facility] [address] [place] [address], [place] * ANCA PANEL FOR VASCULITIS (05/21/2023 9:40 AM ICE CREAM MAKER) ANCA Negative Negative 05/25/2023 1:[address] [facility] Blood BLOOD SPECIMEN / Unknown Butterfly / Unknown 05/21/2023 9:40 AM ICE CREAM MAKER 05/21/2023 9:43 AM ICE CREAM MAKER Darlene Dacosta DO SEND OUTS Performing Organization Address [facility] Co de Phone Number [facility] [address] [place] [address], [place] * C3 COMPLEMENT (05/21/2023 9:40 AM ICE CREAM MAKER) C3 COMPLEMENT 136.97 81.10 - 157.00 mg/dL 05/25/2023 11:[address] [facility] Blood BLOOD SPECIMEN / Unknown Butterfly / Unknown 05/21/2023 9:40 AM ICE CREAM MAKER 05/21/2023 9:43 AM ICE CREAM MAKER Darleen Dacosta DO CHEMISTRY Performing Organization Address [facility] Co de Phone Number [facility] [address] [place] [address], [place] * C4 COMPLEMENT (05/21/2023 9:40 AM ICE CREAM MAKER) C4 Complement 31.38 12.90 - 39.20 mg/dL 05/25/2023 11:[address] [facility] Blood BLOOD SPECIMEN / Unknown Butterfly / Unknown 05/21/2023 9:40 AM ICE CREAM MAKER 05/21/2023 9:43 AM ICE CREAM MAKER Darleen Lowery Olesya DO CHEMISTRY [facility] [address] [place] [address], * (ABNORMAL) COMP METABOLIC PANEL (05/21/2023 9:40 AM ICE CREAM MAKER) SODIUM 138 136 - 145 mmol/L 05/21/2023 6:40 PM [facility] POTASSIUM 4.4 3.5 - 5.1 mmol/L 05/21/2023 6:40 PM [facility] CHLORIDE 100 98 - 107 mmol/L 05/21/2023 6:40 PM [facility] CO2,TOTAL 27 22 - 29 mmol/L 05/21/2023 6:40 PM [facility] ANION GAP 11 5 - 18 05/21/2023 6:40 PM [facility] GLUCOSE 104(H) 70 - 99 mg/dL 05/21/2023 6:40 PM [facility] CALCIUM 9.9 8.8 - 10.2 mg/dL 05/21/2023 6:40 PM [facility] BUN 18 8 - 23 mg/dL 05/21/2023 6:40 PM [facility] CREATININE 0.86 0.50 - 0.90 mg/dL 05/21/2023 6:40 PM [facility] BUN/CREAT RATIO 21(H) 10 - 20 6:40 PM [facility] eGFR 68(L) >90 mL/min/1.7 3m2 05/21/2023 6:40 PM [facility] Comment:As of 2021, eG FR is calculated by the CKD-EPI creatinine equation without race adjustment. ??eGFR can be influenced by muscle mass, exercise, and diet. ??The reported eGFR is an estimation only and is only applicable if the renal function is stable. ALBUMIN 4.1 4.0 - 4.9 g/dL 05/21/2023 6:40 PM [employer] PROTEIN,TOTAL 7.3 6.0 - 8.0 g/dL 05/21/2023 6:40 PM [employer] BILIRUBIN,TOTAL 0.4 0.0 - 1.2 mg/dL 05/21/2023 6:40 PM [employer] [facility] ALK PHOSPHATASE 91 35 - 104 IU/L 05/21/2023 6:40 PM [employer] [facility] ALT (SGPT) 15 10 - 35 IU/L 05/21/2023 6:40 PM [employer] [facility] [facility] AST (SGOT) 32 10 - 35 IU/L 05/21/2023 6:40 PM ICE CREAM MAKER [facility] Blood BLOOD SPECIMEN / Unknown Butterfly / Unknown 05/21/2023 9:40 AM ICE CREAM MAKER 05/21/2023 9:43 AM ICE CREAM MAKER Darleen Dacosta DO CHEMI[facility]Y [facility] [address] [place] [address], * SCAN-RADIOLOGY REPORT (05/16/2023 12:00 AM ICE CREAM MAKER) Anatomical Region Laterality Modality Other Scanner OTHER * CT ABDOMEN PELVIS STONE PROTOCOL WO (05/13/2023 10:19 AM ICE CREAM MAKER) Anatomical Region Laterality Modality Abdomen, Pelvis, AORTA, LIVER, SPLEEN Computed Tomography 05/13/2023 12:4 0 PM ICE CREAM MAKER Impressions 05/13/2023 12:40 PM ICE CREAM MAKER 1. No obstructive calculus or obstructive uropathy [...] PM (Electronically Signed) Narrative 05/13/2023 12:40 PM ICE CREAM MAKER For Patients: ??As a result of the [...] CT * (ABNORMAL) CREATININE,ISTAT (05/13/2023 10:11 AM ICE CREAM MAKER) CREATININE, POCT 3.50(H) 0.57 - 1.11 mg/dL 05/13/2023 10:13 AM ICE CREAM MAKER [facility] Comment:Caution: Patients ta morgan Hydroxyurea have falsely increased iStat Creatinine results. Verify creatinine results ordering a Creatinine (46804.2) eGFR 13(L) >90 mL/min/1.7 3m2 05/13/2023 10:13 AM ICE CREAM MAKER [facility] Comment:As of 2021, eG FR is calculated by the CKD-EPI creatinine equation without race adjustment. eGFR can be influenced by muscle mass, exercise, and diet. The reported eGFR is an estimation only and is only applicable if the renal function is stable. Blood BLOOD SPECIMEN / Unknown 05/13/2023 10:11 AM ICE CREAM MAKER 05/13/2023 10:13 AM ICE CREAM MAKER River Jacobs MD CHEMISTRY [facility] [address] [place] [address], from Last 3 Months Advance Directives Documents on File Type Date Recorded Patient Case Management Coordinator Expl anation Healthcare Directive 10/09/2011 1:24 PM HE ALTH CARE DIRECTIVE, [facility], 11/17/10 Healthcare Directive 08/09/2007 Latest Code [...] Comments Code Status Discussion: Discussed Care Teams Net Lead Developer Relationship Specialty Start Date End Date Darleen Dacosta DO [facility] [place] [address] PCP - General Family Practice 12/23/15 Bk Sigala MD [address] [place] [address] Surgery - Urology 10/02/11 Yennifer Baird MD [address] [place] [address] Ophthalmology Surgery 11/22/12 Divya Dudley MD [address] [place] [address] Oncology Hematology and Oncology 12/06/19 Jessica Gibson, WORT EXTRACTOR [address] [place] [address] Oncology Nurse Practitioner - Family 12/06/19
--- OUTSIDE RECORDS SUMMARY | 2023-07-14 13:31 | XMS_ITS | Encounter Summary ---
Author Name Unknown Organization [facility] Address [address] [place] [address] Care Team Providers Care Historian Research Assistant Name Role Phone Darleen Dacosta Primary Care Provider Unav ailable Encounter Details Date Type Department Care Team Description 06/23/2023 Orders Only [facility] [address] [place] [address] Elisa Chung, CECILE [address] [place] [address] Serum creatinine above reference range; [...] MD LAB URINE ORDERABLES Performing Organization Address City/[facility]/ZIP Co de Phone Number [facility] * (ABNORMAL) Protein, Total, Random Urine w/Creatinine (Protein/Creat Ratio) (06/18/2023) Creatinine, Urine Random 140 mg/dL [facility] Urine Protein/Creatin ine Ratio 0.4(H) mg/g creat [facility] Protein Urine Random 59(H) [facility] Urine (Urine, Clean Catch) 06/18/2023 Yonas Carrasquillo MD LAB URINE ORDERABLES Performing Organization Address City/[facility] Co de Phone Number [facility] documented in this encounter Visit Diagnoses Diagnosis Serum creatinine above reference range Gross hematuria documented in this encounter Care Teams Historian Research Assistant Relationship Specialty Start Date End Date Darleen Dacosta DO [address] [place] [address] PCP - General Family Medicine 05/13/23 documented as of this encounter
--- OUTSIDE RECORDS SUMMARY | 2023-07-14 13:31 | XMS_ITS | Encounter Summary ---
Author Name Unknown Organization [facility] Address [address] [place] [address] Care Team Providers Care Clinic Assistant Name Role Phone Sander Dacostaara Beverley Primary Care Provider Unav ailable Encounter Details Date Type Department Care Team Description 06/30/2023 Telephone [facility] [place] [address] [place] [address] Elisa Chung, RN [address] [place] [address] Social History Tobacco Use Types [...] on filedocumented in this encounter Care Teams Clinic Assistant Relationship Specialty Start Date End Date Darleen Dacosta DO [address] [place] [address] PCP - General Family Medicine 05/13/23 documented as of this encounter
--- OUTSIDE RECORDS SUMMARY | 2023-07-14 13:31 | XMS_ITS | Encounter Summary ---
Author Name Unknown Organization [facility] Address [address] [place] [address] Care Team Providers Care Thinner Sprayer Name Role Phone Keenamorgan Darleen Lowery Primary Care Provider Unav ailable Encounter Details Date Type Department Care Team Description 05/20/2023 Office Communication [facility] [place] [address] [place] [address] Iggy Mercer [address] [place] [address] Social History Tobacco Use Types [...] on filedocumented in this encounter Care Teams Thinner Sprayer Relationship Specialty Start Date End Date Darleen Dacosta DO [address] [place] [address] PCP - General Family Medicine 05/13/23 documented as of this encounter
--- OUTSIDE RECORDS SUMMARY | 2023-07-14 13:31 | XMS_ITS | Encounter Summary ---
Author Name Unknown Organization [facility] Address [address] [place] [address] Care Team Providers Care Fiscal Agent Name Role Phone Darleen Dacosta DO Primary Care Provider Unav ailable Encounter Details Date Type Department Care Team Description 05/13/2023 Orders Only [facility] [place] [address] [place] [address] Acute kidney failure, not otherwise [...] (HCC) documented in this encounter Care Teams Fiscal Agent Relationship Specialty Start Date End Date Darleen [place] [address] PCP - General Family Medicine 05/13/23 documented as of this encounter
--- OUTSIDE RECORDS SUMMARY | 2023-07-14 13:31 | XMS_ITS | Encounter Summary ---
Author Name Unknown Organization [facility] Address [address] [place] [address] Care Team Providers Care Hand Wrapper Operator Name Role Phone Darleen Dacosta Primary Care Provider Unav ailable Reason for Visit * Reason Comments CKD New Patient * Consultation (Urgent) - Closed Specialty Diagnoses / Procedures Referred By Conttiffanie t Referred To Contact Nephrology Diagnoses Acute kidney failure, not otherwise specified (HCC) River Jacobs MD [address] [place] [address] [facility] [address] [address] Referral ID Status Reason Start Date Expiration Date V isits Requested Visits Authorized [id number] Closed Specialty Services Required 05/13/2023 05/12/2024 1 1 Encounter Details Date Type Department Care Team Description 06/03/2023 1:20 PM EST Office Visit [facility] [place] [address] [address] Yonas Carrasquillo MD [address] [place] [address] Serum creatinine above reference range [...] Comments Blood Pressure 149/87 06/03/2023 12:48 PM LIVERY CAR DRIVER Pulse 103 06/03/2023 12:48 PM LIVERY CAR DRIVER Temperature - - Respiratory Rate - - Oxygen Saturation - - Inhaled Oxygen Concentration - - Weight 75.8 kg (167 lb) 06/03/2023 12:48 PM LIVERY CAR DRIVER Height 154.9 cm (5' 1) 06/03/2023 12:48 PM LIVERY CAR DRIVER Body Mass Index 31.55 06/03/2023 12:48 PM LIVERY CAR DRIVER documented in this encounter Patient Instructions * Patient Instructions* Iggy Mercer - 06/03/2023 1:20 PM LIVERY CAR DRIVER Pat, Your kidney function is normal. They should not use the iSTAT machine to check creatinine because Hydroxyurea interferes with this. We will do a blood and urine test today. See the Urologist as planned for the blood in the urine. Felice Carrasquillo MD Welcome to [facility] Although we are experts in the [...] in caring for renal patients. If your Foundry Tender deems it appropriate, you will be scheduled [...] healthy, so we do have a Renal Supervisor Electronics Testing to help you with this. We encourage [...] let them know that you see a firestopper technician for your kidney disease. Ask that they contact your firestopper technician before this type of test is scheduled. [...] Doctors, Advanced Practice Providers, nurses, and Renal Supervisor Electronics Testing are here to provide you with the best renal care. We want you to feel free to call us when you have questions or concerns. To call the nurse at your firestopper technician's office, please see the address and telephone number listed on your After Visit Summary. Thank you, The Physicians and staff at [facility], [facility]. UNDERSTANDING YOUR BLOOD PRESSURE & LAB RESULTS [...] Dolly Chau Date of : 1940 Chart: [id number] PCP: Darleen Dacosta DO Date of Service: 06/03/2023 Chief Complaint: I was asked by Dr. Jacobs to evaluate Dolly Chau for elevated creatinine Subjective: Lory is seen today for evaluation for the above. Loyr had blood in her urine on May [...] once many years ago. SH: Lives in [place] The following portions of the patient's chart [...] the morning. clopidogrel (PLAVIX) 75 MG tablet Yaya Tucker MD Take 1 tablet by mouth [...] time. Yonas Carrasquillo MD [facility] * Yonas Carrasquillo MD - 06/03/2023 1:20 [...] CREATININE RATIO, URINE Routine 06/03/2023 12:53 PM LIVERY CAR DRIVER Nephrolithiasis Gross hematuria VITAMIN D 25 HYDROXY Routine 06/03/2023 12:53 PM LIVERY CAR DRIVER Nephrolithiasis Vitamin D deficiency, not otherwise specified URINALYSIS WITH MICROSCOPIC Routine 06/03/2023 12:53 PM LIVERY CAR DRIVER Nephrolithiasis Gross hematuria URINE CULTURE Routine 06/03/2023 12:53 PM LIVERY CAR DRIVER PTH, INTACT Routine 06/03/2023 12:53 PM LIVERY CAR DRIVER Nephrolithiasis Vitamin D deficiency, not otherwise specified CALCIUM Routine 06/03/2023 12:53 PM LIVERY CAR DRIVER Nephrolithiasis Vitamin D deficiency, not otherwise specified documented in this encounter Results * (ABNORMAL) Urine Culture (06/03/2023 12:53 PM LIVERY CAR DRIVER) Culture Result, Urine SEE NOTE(A) [facility] Comment: ??CULTURE, URINE, ROUTINE ?Micro Number: ?[id number] ??Test Status: ? Final ??Specimen Source: ?? [...] cephalexin ?and loracarbef. 06/03/2023 12:5 3 PM LIVERY CAR DRIVER 06/03/2023 12:54 PM LIVERY CAR DRIVER Yonas Carrasquillo MD LAB URINE ORDERABLES [facility] [address] [place] [address] * Vitamin D 25 hydroxy (06/03/2023 12:53 PM LIVERY CAR DRIVER) Vitamin D, 25-OH, Total, IA 35 30 - 100 ng/mL [facility] Comment: Vitamin D Status ? 25-OH Vitamin D: Deficiency: ?<20 ng/mL Insufficiency: ? 20 - 29 ng/mL Optimal: ? > or = 30 ng/mL For 25-OH Vitamin D testing on patients on D2-supplementation and patients for whom quantitation of D2 and D3 fractions is required, the CornerBlue() 25-OH VIT D, (D2,D3), LC/MS/MS is recommended: order code 90438 (patients >2yrs). See Note 1 Note 1 For additional information, please refer to http://education.Pressly.EduSourced/faq/TZZ774 (This link is being provided for informational/ educational purposes only.) Blood (Blood, Venous) 06/03/2023 12:53 PM LIVERY CAR DRIVER 06/03/2023 12:54 PM LIVERY CAR DRIVER Yonas Carrasquillo MD LAB BLOOD ORDERABLES Performing Organization Address [facility] Co de Phone Number Ajungo [facility] ToonimoJagdish Arreaga [address] [place] [address] * Calcium (06/03/2023 12:53 PM LIVERY CAR DRIVER) Pathologist [facility] Calcium 9.7 8.6 - 10.4 mg/dL ToonimoAngel Abele Blood (Blood, Venous) 06/03/2023 12:53 PM LIVERY CAR DRIVER 06/03/2023 12:54 PM LIVERY CAR DRIVER Yonas Carrasquillo MD LAB BLOOD ORDERABLES Performing Organization Address [facility] de Phone Number [facility] ToonimoJagdish Arreaga [address] [place] [address] * PTH, intact (06/03/2023 12:53 PM LIVERY CAR DRIVER) [facility] Parathyroid Hormone, Intact 66 16 - 77 pg/mL ToonimoJovanny navjot Gibson Comment: Interpretive Guide ?Intact PTH ? Calcium ? ------- Normal Parathyroid ?Normal ? Normal Hypoparathyroidism ?Low or Low Normal ?Low Hyperparathyroidism ?? Primary ?Normal or High ? High ?? Secondary ?High ? Normal or Low ?? Tertiary ? High ? High Non-Parathyroid ?? Hypercalcemia ?Low or Low Normal ?High Blood (Blood, Venous) 06/03/2023 12:53 PM LIVERY CAR DRIVER 06/03/2023 12:54 PM LIVERY CAR DRIVER Yonas Carrasquillo MD LAB BLOOD ORDERABLES Performing Organization Address [facility] Co de Phone Number STEVIE [facility] [address] [place] [address] * (ABNORMAL) Urine Protein / creatinine ratio (06/03/2023 12:53 PM LIVERY CAR DRIVER) Creatinine, Ur 79 20 - 275 mg/dL [facility] Gibson Urine Protein/Creati nine Ratio 1,089(H) 24 - 184 mg/g creat [facility] Protein/Creati nine Ratio, Urine 1.089(H) 0.024 - 0.184 mg/mg creat [facility] Protein Urine Random 86(H) 5 - 24 mg/dL [facility] Urine (Urine, Clean Catch) 06/03/2023 12:53 PM LIVERY CAR DRIVER 06/03/2023 12:54 PM LIVERY CAR DRIVER Yonas Carrasquillo MD LAB URINE ORDERABLES Performing Organization Address [facility] Co de Phone Number STEVIE [facility] [address] [place] [address] * (ABNORMAL) Urinalysis with microscopic (06/03/2023 12:53 PM LIVERY CAR DRIVER) Color, Urine YELLOW YELLOW [facility] Appearance Urine TURBID(A) CLEAR [facility] Specific [place], UA 1.015 1.001 - 1.035 [facility] pH Urine 5.5 5.0 - 8.0 [facility] Glucose, Ur NEGATIVE NEGATIVE [facility] Bilirubin, Urine NEGATIVE NEGATIVE [facility] Ketones, Urine NEGATIVE NEGATIVE [facility] Hemoglobin Ur Ql Strip 3+(A) NEGATIVE [facility] Protein, Ur 1+(A) NEGATIVE [facility] Nitrite, Urine POSITIVE(A) NEGATIVE [facility] WBC Esterase Urine 3+(A) NEGATIVE [facility] WBC, Urine PACKED(A) < OR = 5 /HPF [facility] RBC, Urine 20-40(A) < OR = 2 /HPF [facility] Epithelial Cells in Urine NONE SEEN < OR = 5 /HPF [facility] Trans Epithelial, Urine CANCELED < OR = 5 /HPF [facility] Comment:Result canceled by t he ancillary. Renal Epithelial Cells, Urine CANCELED < OR = 3 /HPF [facility] Comment:Result canceled by t he ancillary. Bacteria MANY(A) NONE SEEN /HPF [facility] Calcium Oxalate Crystals, Urine CANCELED NONE OR FEW /HPF [facility] Comment:Result canceled by t he ancillary. Triple Phosphate Crystals, Urine CANCELED NONE OR FEW /HPF [facility] Comment:Result canceled by t he ancillary. Uric Acid Crystals, Urine CANCELED NONE OR FEW /HPF [facility] Comment:Result canceled by t he ancillary. Amorphous Sediments CANCELED NONE OR FEW /HPF [facility] Comment:Result canceled by t he ancillary. Crystals CANCELED NONE SEEN /HPF [facility] Comment:Result canceled by t he ancillary. Hyaline Casts, Urine 0-5(A) NONE SEEN /LPF [facility] Granular Casts, Urine CANCELED NONE SEEN /LPF [facility] Comment:Result canceled by t he ancillary. Casts CANCELED NONE SEEN /LPF [facility] Comment:Result canceled by t he ancillary. Yeast, UA CANCELED NONE SEEN /HPF [facility] Comment:Result canceled by t he ancillary. Note: [facility] Comment: This urine was analyzed for the presence of WBC, RBC, bacteria, casts, and other formed elements. Only those elements seen were reported. Urine (Urine, Clean Catch) 06/03/2023 12:53 PM LIVERY CAR DRIVER 06/03/2023 12:54 PM LIVERY CAR DRIVER Yonas Carrasquillo MD LAB URINE ORDERABLES [facility] [address] [place] [address] documented in this encounter Visit Diagnoses Diagnosis Serum creatinine above reference range- Primary Nephrolithiasis Gross hematuria Vitamin D deficiency, not otherwise specified Dysuria documented in this encounter Care Teams Hand Wrapper Operator Relationship Specialty Start Date End Date Darleen Dacosta DO [address] [place] [address] PCP - General Family Medicine 05/13/23 documented as of this encounter
--- OUTSIDE RECORDS SUMMARY | 2023-07-14 13:31 | XMS_ITS | Encounter Summary ---
Author Name Unknown Organization [facility] Address [address] [place] [address] Care Team Providers Care Press Operator Automatic Name Role Phone Darleen Dacosta DO Primary Care Provider Unav ailable Encounter Details Date Type Department Care Team Description 06/18/2023 Telephone [facility] [place] [address] [place] [address] Elisa Chung, RN [address] [place] [address] Social History Tobacco Use Types [...] [facility]. Pt questions when the results will be back. Advised that it usually takes 1-2 days to get sent to us. Pt will call the office onMonday to get results. documented in this encounter Plan of Treatment Not on file documented as of this encounter Visit Diagnoses Not on filedocumented in this encounter Care Teams Press Operator Automatic Relationship Specialty Start Date End Date Darelen Dacosta DO [address] [place] [address] PCP - General Family Medicine 05/13/23 documented as of this encounter
--- OUTSIDE RECORDS SUMMARY | 2023-07-14 13:31 | XMS_ITS | Encounter Summary ---
Author Name Unknown Organization [facility] Address [address] [facility] [address] [place] [address] Care Team Providers Care Film Processing Shift Supervisor Name Role Phone KeenaDarleen mora Primary Care Provider Unav ailable Encounter Details Date Type Department Care Team Description 05/25/2023 Documentation Only [facility] [place] [address] [place] [address] Iggy Mercer [address] [place] [address] Social History Tobacco Use Types [...] LAB BLOOD ORDERAB LES Performing Organization Address [facility] de Phone Number ALLARNOL * (ABNORMAL) Urinalysis (05/21/2023) Color, Urine red(A) [facility] Clarity, Urine cloudy(A) [facility] Urine Specific Chemult [facility] Comment:Unable to interpret due to interfering [...] LAB URINE ORDERAB LES Performing Organization Address [facility] Phone Number [facility] * (ABNORMAL) CBC (Includes Diff/Plt) (External Lab) (03/16/2023) WBC 8.9 K/uL [facility] Red Blood Cell Count 3.77(L) [facility] Hemoglobin 13.1 g/dL [facility] Hematocrit 43.1 % [facility] MCV 114(H) [facility] MCH 34.7(H) [facility] MCHC 30.4(L) [facility] RDW 17.9(H) [facility] Platelet Count 196 [facility] MPV 10.0 [facility] Blood 03/16/2023 Historical Provider MD LAB BLOOD ORDERAB LES Performing Organization Address [facility] Co de Phone Number [facility] * (ABNORMAL) [...] LAB BLOOD ORDERAB LES Performing Organization Address City/[facility]/ZIP Co de Phone Number [facility] * (ABNORMAL) [...] on filedocumented in this encounter Care Teams Film Processing Shift Supervisor Relationship Specialty Start Date End Date Darleen Dacosta DO [address] [place] [address] PCP - General Family Medicine 05/13/23 documented as of this encounter
--- OUTSIDE RECORDS SUMMARY | 2023-07-14 13:31 | XMS_ITS | Encounter Summary ---
Author Name Unknown Organization [facility] Address [address] [place] [address] [facility] [address] [place] [address] Care Team Providers Care Survey Manager Name Role Phone Darleen Dacosta DO Primary Care Provider Unav ailable Encounter Details Date Type Department Care Team Description 05/13/2023 Documentation Only [facility] [place] [address] [facility] [address] [place] [address] No, Pcp Social History Tobacco [...] on filedocumented in this encounter Care Teams Survey Manager Relationship Specialty Start Date End Date Darleen Dacosta DO [address] [place] [address] PCP - General Family Medicine 05/13/23 documented as of this encounter
--- OUTSIDE RECORDS SUMMARY | 2023-07-14 13:31 | XMS_ITS | Encounter Summary ---
Author Name Unknown Organization [facility] Address [address] [place] [address] Care Team Providers Care Coal Bagger Name Role Phone KeenaDarleen mora Primary Care Provider Unav ailable Encounter Details Date Type Department Care Team Description 05/13/2023 Telephone [facility] [place] [address] [place] [address] Ameena Martin MD [address] [place] [address] Social History Tobacco Use Types [...] 2:00 PM CST Okayed by Patient Access Beet Flumer to schedule on [facility] schedule with Dr. Carrasquillo. Patient agreed to move up visit to 06/03/2023 and the new patient packet was replaced. * Telephone Encounter - Carla Pacheco - 05/13/2023 11:17 AM CST Patient is scheduled 06/[address] Martin in [place]. New patient packet sent to patient. Mila from [facility] called with the patient to schedule. Please [...] on filedocumented in this encounter Care Teams Coal Bagger Relationship Specialty Start Date End Date Darleen Dacosta DO [address] [place] [address] PCP - General Family Medicine 05/13/23 documented as of this encounter
--- OUTSIDE RECORDS SUMMARY | 2023-07-14 13:31 | XMS_ITS | Encounter Summary ---
Author Name Unknown Organization [facility] Address [address] [place] [address] Care Team Providers Care Backend Tester Name Role Phone Keenamorgan Darleen Beverley Primary Care Provider Unav ailable Encounter Details Date Type Department Care Team Description 06/07/2023 Telephone [facility] [place] [address] [place] [address] Elisa Chung, RN [address] [place] [address] Social History Tobacco Use Types [...] on filedocumented in this encounter Care Teams Backend Tester Relationship Specialty Start Date End Date Darleen Dacosta DO [address] [place] [address] PCP - General Family Medicine 05/13/23 documented as of this encounter
--- OUTSIDE RECORDS SUMMARY | 2023-07-14 13:31 | XMS_ITS | Encounter Summary ---
Author Name Unknown Organization [facility] Address [address] [place] [address] Care Team Providers Care Fire Extinguisher Repairer Name Role Phone Darleen Dacosta DO Primary Care Provider Unav ailable Reason for Referral * Consultation (Urgent) - Closed Specialty Diagnoses / Procedures Referred By Contac t Referred To Contact Nephrology Diagnoses Acute kidney failure, not otherwise specified (HCC) River Jacobs MD [address] [place] [address] [facility] [address] [place] [address] Referral ID Status Reason Start Date Expiration Date V isits Requested Visits Authorized [id number] Closed Specialty Services Required 05/13/2023 05/12/2024 1 1 NSED STAFF MFT Encounter Details Date Type Department Care Team Description 05/13/2023 Transcribe Orders [facility] [address] [place] [address] Darleen Dacosta DO [address] [place] [address] Acute kidney failure, not otherwise specified (HCC) [...] Primary documented in this encounter Care Teams Fire Extinguisher Repairer Relationship Specialty Start Date End Date Darleen Dacosta DO [address] [place] [address] PCP - General Family Medicine 05/13/23 documented as of this encounter
--- OUTSIDE RECORDS SUMMARY | 2023-07-14 13:31 | XMS_ITS | Encounter Summary ---
Author Name Unknown Organization [facility] Address [address] [place] [address] Care Team Providers Care Auto Brake Mechanic Name Role Phone KeenaDarleen mora Beverley Primary Care Provider Unav ailable Encounter Details Date Type Department Care Team Description 06/08/2023 Telephone [facility] [place] [address] [place] [address] Elisa Chung, RN [address] [place] [address] Social History Tobacco Use Types [...] Miscellaneous Notes * Telephone Encounter - Elisa Cuhng RN - 06/09/2023 2:40 PM CST Pt notified and voiced understanding. Faxed lab order to Coleen [facility]. * Telephone Encounter - Elisa Chung RN - 06/08/2023 1:58 PM CST ----- Message from Yonas Carrasquillo MD sent at 06/08/2023 1:56 PM HAND SAMPLE MAKER ----- Thank you for helping get her [...] hematuria documented in this encounter Care Teams Auto Brake Mechanic Relationship Specialty Start Date End Date Darleen Dacosta DO [address] [place] [address] PCP - General Family Medicine 05/13/23 documented as of this encounter
--- OUTSIDE RECORDS SUMMARY | 2023-07-14 13:31 | XMS_ITS | Clinical Summary ---
Author Name Unknown Organization [facility] Address [address] [place] [address] Phone Care Team Providers Care House Parent Name Role Phone KeenaDarleen mora Beverley Primary [...] Team Description 06/30/2023 Telephone [facility] [place] [address] [facility] [address] [place] [address] Elisa Chung RN 06/23/2023 Orders Only [facility] [address] [facility] [address] [place] [address] Elisa Chung, CECILE Serum creatinine above reference range; Gross hematuria 06/18/2023 Telephone [facility] [address] [facility] [address] [place] [address] Elisa Chung RN 06/08/2023 Telephone [facility] [place] [address] [facility] [address] [place] [address] Elisa Chung RN 06/07/2023 Telephone [facility] [place] [address] [facility] [address] [place] [address] Elisa Chung RN 06/03/2023 1:20 PM EST Office Visit [facility] [facility] [place] [address] Yonas Carrasquillo MD Serum creatinine above reference range (Primary Dx); Nephrolithiasis; Gross hematuria; Vitamin D deficiency, not otherwise specified; Dysuria 05/25/2023 Documentation Only [facility] [place] [address] Iggy Mercer 05/20/2023 Office Communication [facility] [place] [phone] Iggy Mercer 05/13/2023 Orders Only [facility] [address] [address] Acute kidney failure, not otherwise specified (HCC) 05/13/2023 Transcribe Orders [facility] [address] [address] Darleen Dacosta DO Acute kidney failure, not otherwise specified (HCC) (Primary Dx) 05/13/2023 Documentation Only [facility] [place] [phone] No, Pcp 05/13/2023 Telephone [facility] [place] [address] Ameena Martin MD from Last 3 Months [...] Comments Blood Pressure 149/87 06/03/2023 12:48 PM RIVER TESTER Pulse 103 06/03/2023 12:48 PM RIVER TESTER Temperature - - Respiratory Rate - - Oxygen Saturation - - Inhaled Oxygen Concentration - - Weight 75.8 kg (167 lb) 06/03/2023 12:48 PM RIVER TESTER Height 154.9 cm (5' 1) 06/03/2023 12:48 PM RIVER TESTER Body Mass Index 31.55 06/03/2023 12:48 PM RIVER TESTER Plan of Treatment Health Maintenance Due Date [...] hematuria URINE CULTURE Routine 06/03/2023 12:53 PM RIVER TESTER VITAMIN D 25 HYDROXY Routine 06/03/2023 12:53 PM RIVER TESTER Nephrolithiasis Vitamin D deficiency, not otherwise specified CALCIUM Routine 06/03/2023 12:53 PM RIVER TESTER Nephrolithiasis Vitamin D deficiency, not otherwise specified PTH, INTACT Routine 06/03/2023 12:53 PM RIVER TESTER Nephrolithiasis Vitamin D deficiency, not otherwise specified PROTEIN / CREATININE RATIO, URINE Routine 06/03/2023 12:53 PM RIVER TESTER Nephrolithiasis Gross hematuria URINALYSIS WITH MICROSCOPIC Routine 06/03/2023 12:53 PM RIVER TESTER Nephrolithiasis Gross hematuria COMPREHENSIVE METABOLIC PANEL (CMP) [...] MD LAB URINE ORDERABLES Performing Organization Address [facility] Co de Phone Number [facility] * (ABNORMAL) Urine Albumin / Creatinine Ratio (06/18/2023) Albumin, Urine 152 mg/dL [facility] Creatinine, Urine Random 1.44 mg/dL [facility] Alb/Creat Ratio, Ur 105.6(H) mg/g Creat [facility] Urine (Urine, Clean Catch) 06/18/2023 Yonas Carrasquillo MD LAB URINE ORDERABLES Performing Organization Address [facility] Co de Phone Number [facility] * Vitamin D 25 hydroxy (06/03/2023 12:53 PM RIVER TESTER) Vitamin D, 25-OH, Total, IA 35 30 - 100 ng/mL [facility] Comment: Vitamin D Status ? 25-OH Vitamin D: Deficiency: ?<20 ng/mL Insufficiency: ? 20 - 29 ng/mL Optimal: ? > or = 30 ng/mL For 25-OH Vitamin D testing on patients on D2-supplementation and patients for whom quantitation of D2 and D3 fractions is required, the [employer]TM) 25-OH VIT D, (D2,D3), LC/MS/MS is recommended: order code [id number] (patients >2yrs). See Note 1 Note 1 For additional information, please refer to http://education.SportCentral/faq/ASN775 (This link is being provided for informational/ educational purposes only.) Blood (Blood, Venous) 06/03/2023 12:53 PM RIVER TESTER 06/03/2023 12:54 PM RIVER TESTER Yonas Carrasquillo MD LAB BLOOD ORDERABLES [facility] [address] [place] [address] * (ABNORMAL) Urinalysis with microscopic (06/03/2023 12:53 PM RIVER TESTER) Color, Urine YELLOW YELLOW [facility] Appearance Urine TURBID(A) CLEAR [facility] Specific Mathews, UA 1.015 1.001 - 1.035 [facility] pH Urine 5.5 5.0 - 8.0 [facility] Glucose, Ur NEGATIVE NEGATIVE [facility] Bilirubin, Urine NEGATIVE NEGATIVE [facility] Ketones, Urine NEGATIVE NEGATIVE [facility] Hemoglobin Ur Ql Strip 3+(A) NEGATIVE [facility] Protein, Ur 1+(A) NEGATIVE [facility] Nitrite, Urine POSITIVE(A) NEGATIVE [facility] WBC Esterase Urine 3+(A) NEGATIVE [facility] WBC, Urine PACKED(A) < OR = 5 /HPF [facility] RBC, Urine 20-40(A) < OR = 2 /HPF [facility] Epithelial Cells in Urine NONE SEEN < OR = 5 /HPF [facility] Trans Epithelial, Urine CANCELED < OR = 5 /HPF [facility] Comment:Result canceled by t he ancillary. Renal Epithelial Cells, Urine CANCELED < OR = 3 /HPF [facility] Comment:Result canceled by t he ancillary. Bacteria MANY(A) NONE SEEN /HPF [facility] Calcium Oxalate Crystals, Urine CANCELED NONE OR [...] Crystals CANCELED NONE SEEN /HPF [facility] Comment:Result canceled by t he ancillary. Hyaline [...] Urine (Urine, Clean Catch) 06/03/2023 12:53 PM RIVER TESTER 06/03/2023 12:54 PM RIVER TESTER Yonas Carrasquillo MD LAB URINE ORDERABLES Performing Organization Address City/State/[facility] Co de Phone Number [facility] Alyss[facility] OrtezJagdish Arreaga [address] [place] [address] * (ABNORMAL) Urine Culture (06/03/2023 12:53 PM RIVER TESTER) Culture Result, Urine SEE NOTE(A) [facility] Comment: ??CULTURE, URINE, ROUTINE ?Micro Number: ?[id number] ??Test Status: ? Final ??Specimen Source: ?? [...] cephalexin ?and loracarbef. 06/03/2023 12:5 3 PM RIVER TESTER 06/03/2023 12:54 PM RIVER TESTER Yonas Carrasquillo MD LAB URINE ORDERABLES Performing Organization Address City/State/[facility] Co de Phone Number [facility] [address] [place] [address] * PTH, intact (06/03/2023 12:53 PM RIVER TESTER) Parathyroid Hormone, Intact 66 16 - 77 pg/mL [facility] Comment: Interpretive Guide ?Intact PTH ? Calcium ? ------- Normal Parathyroid ?Normal ? Normal Hypoparathyroidism ?Low or Low Normal ?Low Hyperparathyroidism ?? Primary ?Normal or High ? High ?? Secondary ?High ? Normal or Low ?? Tertiary ? High ? High Non-Parathyroid ?? Hypercalcemia ?Low or Low Normal ?High Blood (Blood, Venous) 06/03/2023 12:53 PM RIVER TESTER 06/03/2023 12:54 PM RIVER TESTER Yonas Carrasquillo MD LAB BLOOD ORDERABLES Performing Organization Address [facility] de Phone Number [facility] [employer] [address] [place] [address] * Calcium (06/03/2023 12:53 PM RIVER TESTER) Calcium 9.7 8.6 - 10.4 mg/dL [employer] gary Arreaga Blood (Blood, Venous) 06/03/2023 12:53 PM RIVER TESTER 06/03/2023 12:54 PM RIVER TESTER Yonas Carrasquillo MD LAB BLOOD ORDERABLES Performing Organization Address [facility] de Phone Number [facility] [employer] [address] [place] [address] * (ABNORMAL) Comprehensive Metabolic Panel (CMP) (05/21/2023) [...] LAB BLOOD ORDERAB LES Performing Organization Address [facility] de Phone Number [facility] * (ABNORMAL) Urinalysis (05/21/2023) Color, Urine red(A) [facility] Clarity, Urine cloudy(A) [facility] Urine Specific Mathews [facility] Comment:Unable to interpret due to interfering [...] [facility] from Last 3 Months Care Teams House Parent Relationship Specialty Start Date End Date Darleen Dacosta DO [address] [place] [address] PCP - General Family Medicine 05/13/23
--- OUTSIDE RECORDS SUMMARY | 2023-07-14 13:32 | XMS_ITS | Continuity of Care Document ---
Author Name Unknown Address [address] [place] [address] Phone [phone] Organization [facility] Address [address] [place] [address] Care Team Providers Care Guest Experience Manager Name Role Phone BEAUARNOL Y[facility]IFORMERLY [facility] Primary Care Provider Assessment No assessment recorded. Plan of Treatment Reminders Order Date Submit Date Provider Last Modified By Organization Details Last Modified Time Details Appointments None recorded. Lab urinalysis , dipstick 2023 024 [email or web address] [facility], [address], [place], [address], 15:32:50 Referral None recorded. Procedures None recorded. Surgeries None recorded. Imaging None recorded. Medication Orders None recorded. Patient TargetsNo targets recorded. Patient Instructions Encounter Date Encounter Id Patient Instructions Last Modified By Organization Details Last Modified Time 07/02/2023 [id number] will set her up to get CT urogram in [place] and call with report/plan for cysto. [email or web address] Not available 07/02/2023 15:34:20 Reason for Referral None Reported. Results Created Date Observation Date Name Description Value Unit Range Abnormal Flag LastModifiedBy Organization Detail LastModifiedTime 07/02/19 24 07/02/2023 urina lysis , dipst ick pH-Status 6.0 Not Available [facility] [address], [place], [address], 07/02/2023 15:20:47 07/02/19 24 07/02/2023 urina lysis , dipst ick Blood-Status Modera te Not Available [facility] [address], [place], [address], 07/02/2023 15:20:47 07/02/19 24 07/02/2023 urina lysis , dipst ick Leuko-Status Small Not Available [facility] [address], [place], [address], 07/02/2023 15:20:47 07/12/19 24 07/09/2023 CT ABD wo&W & pelv wo&W (no oral cont) No observ ation record ed. INTERFACE Feliz Garcia MD [address] [place] [address], [address], 07/12/2023 10:19:28 07/14/19 24 07/09/2023 CT, urogr am No observ ation record ed. LEIGH Horne [place] [address], [place], [address], 07/14/2023 13:35:58 Result Notes None recorded. Problems Name Status Onset Date Resolution Date Notes Provider Name and Address Organization Details Recorded Time Hypertensive disorder Active 019 I10 : Essential (primary) hypertension Not Available [facility] 0 02:06:07 Ureteric stone Active 019 N20.1 : Calculus of ureter Not Available Critical [facility] hospital 0 02:06:08 Kidney stone Active 024 Feliz Maddox MD [address] [place] [address],[address], [address] , [facility] 4 15:33:06 Recurrent urinary tract infection Active 024 Feliz Maddox MD [address] [place] [address],[address], [address] , [facility] 4 15:33:10 Jerome hematuria Active 024 Feliz Maddox MD [address] [place] [address],[address], [address] , [facility] 4 15:34:06 Problem Notes None recorded. Procedures Surgical History Date Name Laterality Status Provider Name and Address Organization Details Recorded Time reconstruction of pelvic floor completed Feliz Maddox MD [address] [facility], [address], [facility] 09/15/2021 15:47:54 Imaging Results None recorded. Procedure Notes None recorded. Medical Equipment None Reported. Allergies Allergen ID Allergen Name Allergen Category Reaction Reaction Severity Criticality Documentation Date Start Date Code Code System Note Provider Name and Address Organization Details Recorded Time 146079 Fosamax medicatio n abdominal pain Not available Not available 02/21/2021 25231 5 RxNorm Feliz Maddox MD [address] [facility], [address], [facility] 15:05:52 Medications Name Sig Start Date [...] Not Available Not Avai lable amoxicillin 875 mg-potmeganiu m clavulanate 125 mg tablet 07/02 completed [...] Updated DateTime 07/02/2023 154.94 cm 32.1 kg/m2 69652.7 g Feliz Maddox MD [address] [place] [address], [phone] 07/02/2023 15:17:55 Social History Question Answer Notes LastModified by Organizat ion Details LastModified Time Tobacco Smoking Status Never Smoker Feliz Maddox MD [address] [place] [address], [address], [facility] 02/21/2021 15:09:21 What Is Your Level Of Alcohol Consumption? None [email or web address] Information not available 02/21/2021 What Is Your Level Of Caffeine Consumption? None [email or web address] Information not available 02/21/2021 Are You Currently Employed? No [email or web address] Information not available 02/21/2021 What Was The Date Of Your Most Recent Tobacco Screening? 09/15/2021 [email or web address] Information not available 09/15/2021 What Is Your Relationship Status? [email or web address] Information not available 02/21/2021 Do You Use Any Illicit Or Recreational Drugs? No Information not available 02/21/2021 Do You Or Have You Ever Used Any Other Forms Of Tobacco Or Nicotine? No [email or web address] Information not available 02/21/2021 Sex: Female Functional Status None recorded. Mental Status None recorded. Family History Relationship Description Onset Age of this Age Resolved Age Notes Father Family history of pr ostate cancer Notes:Mother had a stroke Medical History Condition Response Other N High Blood Pressure N Kidney Stones Y Lung Disease N Depression N GERD/Acid Reflux N Diabetes N Sexually Transmitted Infection N Bleeding Disorder N Cancer N High Cholesterol Y Heart Disease Y Gynecological History Statement/Question Response Sexually Active? N Obstetrics History GPAL:G 3 P 0 0 0 0 Past Encounters Encounter ID Performer Location Encounter Start Date Encounter Closed Date Diagnosis/Indication [id number] Feliz Maddox MD [facility] [address] [facility] [place] [address] 07/02/2023 14:38:07 07/08/2023 16:06:51 Recurrent urinary tract [...] REPLACEMENT/A DVANTAGE - PPO) [id number] Dolly Chau [id number] Dolly Chau Notes Date Note Type Note Provider Name and Address Organization Details Recorded Time 07/02/2023 text/html HPI Notes: seen in [facility] ED for UTI last week had hematuria in April for 2 weeks. got cephalexin last week for her UTI. not had any recent imaging and was supposed to get imaging done but the tech is gone today. not had any flank pain. UA today mod RBC and sm leuk. has 5 more days of abx left. Feliz Maddox MD [address] [facility],[address], [place], [address], [facility] 07/02/2023 15:37:06 OBGyn Episode No OBEpisode recorded.
--- OUTSIDE RECORDS SUMMARY | 2023-07-14 13:32 | XMS_ITS | Data Portability ---
Author Name Unknown Address [address] [place] [address] Phone [phone] Organization [facility], [facility] Address [address] [place] [address] Care Team Providers Care Medical Resident Name Role Phone BEAUARNOL VALENTINO Primary Care Provider Assessment No assessment recorded. Plan of Treatment Reminders Order Date Submit Date Provider Last Modified By Organization Details Last Modified Time Details Appointments None recorded. Lab urinalysis , dipstick 2023 024 [email or web address] [facility], [address], [place], [address], 4 15:32:50 urinalysis , dipstick 2021 022 LEIGH Not available 13:41:28 urinalysis , dipstick 2020 021 [email or web address] Not available 15:11:29 Referral None recorded. Procedures None recorded. Surgeries None recorded. Imaging None recorded. Medication Orders None recorded. Patient TargetsNo targets recorded. Patient Instructions Encounter Date Encounter Id Patient Instructions Last Modified By Organization Details Last Modified Time 07/02/2023 [id number] will set her up to get CT urogram in [place] and call with report/plan for cysto. [email or web address] Not available 07/02/2023 15:34:20 09/15/2021 [id number] will get 24 hour urine done and call with report. [email or web address] Not available 09/15/2021 16:04:56 02/21/2021 [id number] will set up for cystoscopy and bilateral ESWL at [facility]. LASHANDA discussed. [email or web address] Not available 02/21/2021 15:24:31 Reason for Referral None Reported. Results Created Date Observation Date Name Description Value Unit Range Abnormal Flag LastModifiedBy Organization Detail LastModifiedTime 02/21/2021 urina lysis , dipst ick Color-Status Yellow Not Available [facility] [address], [place], [address], 02/21/2021 15:00:14 02/21/2021 urina lysis , dipst ick Clarity-Stat us Clear Not Available [facility] [address], [place], [address], 02/21/2021 15:00:14 02/21/2021 urina lysis , dipst ick Glucose-Stat us Negati ve Not Available [facility] [address], [place], [address], 02/21/2021 15:00:14 02/21/2021 urina lysis , dipst ick Bilirubin-St atus Negati ve Not Available [facility] [address], [place], [address], 02/21/2021 15:00:14 02/21/2021 urina lysis , dipst ick Ketones-Stat us Negati ve Not Available [facility] [address], [place], [address], 02/21/2021 15:00:14 02/21/2021 urina lysis , dipst ick pH-Status 6.5 Not Available [facility] [address], [place], [address], 02/21/2021 15:00:14 02/21/2021 urina lysis , dipst ick Nitrates-Sta tus negati ve Not Available [facility] [address], [place], [address], 02/21/2021 15:00:14 02/21/2021 urina lysis , dipst ick Blood-Status Negati ve Not Available [facility] [address], [place], [address], 02/21/2021 15:00:14 02/21/2021 urina lysis , dipst ick Leuko-Status Large Not Available [facility] [address], [place], [address], 02/21/2021 15:00:14 09/18/19 22 09/17/2021 urina lysis , dipst ick Blood-Status Trace Not Available [facility] [address], [place], [address], 09/15/2021 15:36:05 09/18/19 22 09/17/2021 urina lysis , dipst ick Leuko-Status Small Not Available [facility] [address], [place], [address], 09/15/2021 15:36:05 07/02/19 24 07/02/2023 urina lysis , dipst ick pH-Status 6.0 Not Available [facility] [address], [place], [address], 07/02/2023 15:20:47 07/02/19 24 07/02/2023 urina lysis , dipst ick Blood-Status Modera te Not Available [facility] [address], [place], [address], 07/02/2023 15:20:47 07/02/19 24 07/02/2023 urina lysis , dipst ick Leuko-Status Small Not Available [facility] [address], [place], [address], 07/02/2023 15:20:47 02/19/20 21 01/22/2021 CT, abdom en + pelvi s, w/o contr ast No observ ation record ed. Not Available 02/18/2021 11:55:01 02/19/20 21 01/20/2021 XR, abdom en No observ ation record ed. Not Available 02/18/2021 11:55:52 09/19/19 22 09/15/2021 XR, kidne y + urete r + bladd er No observ ation record ed. [email or web address] Not Available 09/18/2021 10:02:08 07/12/19 24 07/09/2023 CT ABD wo&W & pelv wo&W (no oral cont) No observ ation record ed. INTERFACE Feliz Garcia MD [address] [place] [address], [address], 07/12/2023 10:19:28 07/14/19 24 07/09/2023 CT, urogr am No observ ation record ed. [facility] [place] [address] [facility], [place], [address], 07/14/2023 13:35:58 Result Notes None recorded. Problems Name Status Onset Date Resolution Date Notes Provider Name and Address Organization Details Recorded Time Hypertensive disorder Active 019 I10 : Essential (primary) hypertension Not Available [facility] 0 02:06:07 Ureteric stone Active 019 N20.1 : Calculus of ureter Not Available [facility] 0 02:06:08 Kidney stone Active 024 Feliz Maddox MD [address] [place] [address],[address], [address] , [facility] 4 15:33:06 Recurrent urinary tract infection Active 024 Feliz Maddox MD [address] [place] [address],[address], [address] , [facility] 4 15:33:10 Jerome hematuria Active 024 Feliz Maddox MD [address] [place] [address],[address], [address] , [facility] 4 15:34:06 Problem Notes None recorded. Procedures Surgical History Date Name Laterality Status Provider Name and Address Organization Details Recorded Time reconstruction of pelvic floor completed Feliz Maddox MD [address] [facility],[address], [place], [address], [facility] 09/15/2021 15:47:54 Imaging Results Imaging Date Name Status LastModified by Organiz ation Details LastModified Time 01/22/2021 CT, abdomen + pelvis, w/o contrast completed Information not available 02/18/2021 11:55:01 01/20/2021 XR, abdomen completed Information n ot available 02/18/2021 11:55:52 09/15/2021 XR, kidney + ureter + bladder completed Information not available 09/18/2021 10:02:08 07/09/2023 CT ABD wo&W & pelv wo&W (no oral cont) active INTERFACE Feliz Garcia MD [address] [place], [address], 07/12/2023 10:19:28 07/09/2023 CT, urogram active LEIGH [facility] [address] [place], [address], 07/14/2023 13:35:58 Procedure Notes None recorded. Medical Equipment None Reported. Allergies Allergen ID Allergen Name Allergen Category Reaction Reaction Severity Criticality Documentation Date Start Date Code Code System Note Provider Name and Address Organization Details Recorded Time 723781 Fosamax medicatio n abdominal pain Not available Not available 02/21/2021 62888 5 RxNorm Feliz Maddox MD [address] [facility],[address], [place], [address], [facility] 15:05:52 Medications Name Sig Start Date [...] Updated DateTime 07/02/2023 154.94 cm 32.1 kg/m2 12740.7 g Feliz Maddox MD [address] [place] [address] [facility] 07/02/2023 15:17:55 Date Recorded Body height Body mass index (BMI) Body weight Provider Name and Address Organization Details Last Updated DateTime 02/21/2021 157.48 cm 29.8 kg/m2 98751.56 g Feliz Maddox MD [address] [place] [address] [facility] 02/21/2021 15:05:13 Date Recorded Body height Body mass index (BMI) Body weight Provider Name and Address Organization Details Last Updated DateTime 09/15/2021 157.48 cm 29.8 kg/m2 80707.56 g [facility] 09/15/2021 15:35:19 Social History Question Answer Notes LastModified by Organizat ion Details LastModified Time Tobacco Smoking Status Never Smoker Feliz Maddox MD [address] [place] [address], [address], [facility] 02/21/2021 15:09:21 What Is Your Level Of Alcohol Consumption? None [email or web address] Information not available 02/21/2021 What Is Your Level Of Caffeine Consumption? None [email or web address] Information not available 02/21/2021 Are You Currently Employed? No [email or web address] Information not available 02/21/2021 What Was The Date Of Your Most Recent Tobacco Screening? 09/15/2021 [email or web address] Information not available 09/15/2021 What Is Your Relationship Status? [email or web address] Information not available 02/21/2021 Do You Use Any Illicit Or Recreational Drugs? No [email or web address] Information not available 02/21/2021 Do You Or Have You Ever Used Any Other Forms Of Tobacco Or Nicotine? No [email or web address] Information not available 02/21/2021 Sex: Female Functional Status None recorded. Mental Status None recorded. Family History Relationship Description Onset Age of this Age Resolved Age Notes Father Family history of pr ostate cancer Notes:Mother had a stroke Medical History Condition Response Other N High Blood Pressure N Kidney Stones Y Depression N Lung Disease N GERD/Acid Reflux N Diabetes N Sexually Transmitted Infection N Bleeding Disorder N Cancer N High Cholesterol Y Heart Disease Y Gynecological History Statement/Question Response Sexually Active? N Obstetrics History GPAL:G 3 P 0 0 0 0 Past Encounters Encounter ID Performer Location Encounter Start Date Encounter Closed Date Diagnosis/Indication [id number] Feliz Maddox MD [facility] [address] [place] [address] 02/21/2021 14:40:44 02/26/2021 09:17:07 Kidney stone Jerome hematuria [id number] Feliz Maddox MD [facility] [address] [place] [address] 09/15/2021 15:21:48 09/22/2021 12:57:47 Ureteric stone Kidney stone [id number] Feliz Maddox MD [facility] [address] [place] [address] 07/02/2023 14:38:07 07/08/2023 16:06:51 Recurrent urinary tract infection Kidney stone Jerome hematuria Health Concerns Section Related Observation LastModified by Organization Detai ls LastModified Time None Recorded Concern Status LastModified by Organization Details LastModified Time None Recorded Advance Directives Directive None Recorded Payers Encounter Date Sequence Insurance Name Policy Number Policy Philip Covered Member ID Philip Member ID Guarantor Name 07/02/2023 1 MED[employer] - DOS ON OR AFTER 2020 - MEDICA GOVERNMENT PROGRAMS - ADVANTAGE SOLUTION (MEDICARE REPLACEMENT/A DVANTAGE - PPO) [id number] Dolly Chau [id number] Dolly Chau 09/15/2021 1 MEDICA - DOS ON OR AFTER 2020 - MEDICA GOVERNMENT PROGRAMS - ADVANTAGE SOLUTION (MEDICARE REPLACEMENT/A DVANTAGE - PPO) [id number] Dolyl Chau [id number] Dolly Chau 02/21/2021 1 [employer] [id number] Dolly Chau [id number] Dolly Chau Notes Date Note Type Note Provider Name and Address Organization Details Recorded Time 02/21/2021 text/html HPI Notes: hx stones had ureteroscopy 2019 ureteroscopy laser and previous ESWL. had gross hematuria 01/[address] was done showing lot of small renal stones bilateral up to 5mm. no hematuria since. UA today is clear. has POP and seeing [facility] for that. UA today no RBC just tr WBC. no UTI sx's and no flank pain episodes. Feliz Maddox MD [address] [place] [address],[address], [place], [address], [facility] 02/21/2021 15:26:29 09/15/2021 text/html HPI Notes: follo w up kidney stones. KUB today showing lot of small stone bilateral all tiny on the right a few 3-4mm ones left lower pole. UA bland today. had pelvic prolapse surgery in July with Dr Campbell/JENNIE Wheat. having some stress incontinence since that. Feliz Maddox MD [address] [place] [address],[address] [place] [address], [address], [facility] 09/15/2021 16:07:11 07/02/2023 text/html HPI Notes: seen in [facility] [...] days of abx left. Feliz Maddox MD [address] [place] [address],[address], [place], [address], [facility] 07/02/2023 15:37:06 OBGyn Episode No OBEpisode recorded.
--- NOTE | 2023-07-14 13:45 | MR_ITS ---
[facility] [address] [facility] [address] Phone:?[phone] Fax:?[phone] Referring Physician Information: Jess Mercado [address] [facility] [address] Phone:?[phone] Fax:?[phone] Patient:Elizabeth Chau D.O.B:?1940 Sex:?Female Phone:?[phone] [facility] MRN:?[id number] Exam Date:?07/14/2023 EXAM: MRI OF THE RIGHT ANKLE WITHOUT CONTRAST CLINICAL INFORMATION: Female, 83 years old, with right ankle pain. INDICATION: Evaluate ankle pain. PRIOR SURGERY: None reported. PLAIN FILMS: None available. COMPARISONS: No prior MRIs available. TECHNICAL INFORMATION: Using a 1.5T MR scanner and a localizing surface coil: sagittals: PD, T2, STIR coronals: PD, T2 axials: PD, T2 SEDATION: None. CONTRAST: None. FINDINGS: Osseous structures: Moderate edema-like signal and cystic change is present in the lateral aspect of the tibial plafond with a chronic deformity of the posterior malleolus (sagittal STIR series 5 image 11). The osseous structures are otherwise unremarkable. Os trigonum: No os trigonum or abnormally prominent Stieda's process. Tarsal coalition: No calcaneonavicular, talocalcaneal or cubonavicular coalition. Tibiotalar joint: Effusion: Small tibiotalar joint effusion. Ganglion cyst: None. Osteochondral surfaces: Mild generalized thinning of the articular cartilage throughout the tibiotalar joint, with minimal marginal osteophytosis. Loose bodies: No demonstrable loose bodies. Subtalar joint: Effusion: Small subtalar joint effusion. Articular cartilage: Mild chondral thinning, osteophytosis, and reactive osseous changes of the posterior subtalar joint facet Tarsal joints: Talonavicular: Unremarkable. Calcaneocuboid: Unremarkable. Naviculocuneiform: Unremarkable. Tarsometatarsal: Unremarkable. Ligaments: Syndesmotic ligaments:?The anterior and posterior inferior tibiofibular syndesmotic ligaments are normal. Lateral ligaments:?Moderate attenuation and irregularity of the anterior talofibular and calcaneofibular ligaments (axial T2 series 4 images 21-26). Deltoid ligament:?The visualized components of the superficial and deep deltoid ligament, specifically the tibiospring and posterior tibiotalar ligaments, are intact, but mildly-moderately thickened and relatively amorphous in appearance (coronal PD series 8 images 20-22) Calcaneonavicular spring ligament:?The superomedial component of the calcaneonavicular spring ligament is grossly intact. Bifurcate and calcaneocuboid ligaments:?Intact lateral calcaneonavicular and medial calcaneocuboid ligaments. The dorsolateral calcaneocuboid ligament is intact. Tendons: Peroneal:?The peroneal tendons are appropriately situated within the retromalleolar groove and the superior peroneal retinaculum is intact. Normal thickness and signal intensity without tendinopathy, tenosynovitis, or split/tear. Flexor tendons:?The posterior tibialis, flexor digitorum and flexor hallucis longus tendons are intact. No significant tendinopathy and without tenosynovitis, tendon split or tendon disruption. Extensor tendons:?The anterior tibialis, extensor digitorum longus, and extensor hallucis longus tendons are intact. No significant tendinopathy and without tenosynovitis, tendon split or tendon disruption. Achilles:?Mild Achilles tendinopathy and thickening, without tear (sagittal PD series 6 image 15). Sinus tarsi:?The sinus tarsi signal is normal. Plantar aponeurosis: There is no abnormal thickening of, abnormal intrasubstance signal involving, or perifascial edema about the plantar aponeurosis. Specifically, the plantar fascia origin appears normal in signal intensity and morphology. Plantar musculature:?The intrinsic foot musculature is normal in bulk and signal intensity without evidence of denervation atrophy. Neurovascular structures and tarsal tunnel: The posterior tibial neurovascular structures appear unremarkable coursing past the ankle and through the tarsal tunnel. IMPRESSION: 1. 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 2. Chronic mild deformity of the posterior malleolus with moderate bone marrow edema along the lateral aspect of the posterolateral tibial plafond. 3. Chronic sequela of low-grade/incomplete sprains of the lateral ligaments and deltoid ligamentous complex. 4. Mild Achilles tendinopathy, without tear. 5. No other ligamentous or myotendinous abnormality. BC Electronically signed on 07/14/2023 5:31:00 PM by Jv Estrella M.D.
== END 2023-07-14 13:27 | disposition home or self-care (01) ==
LOC: MRI 13:27
PROVIDERS: PCP Family Medicine; Visit Provider Physician Assistant Surgical
DX: M25.571 Pain in right ankle and joints of right foot (principal); M19.071 Primary osteoarthritis, right ankle and foot; S93.421A Sprain of deltoid ligament of right ankle, initial encounter
CPT/HCPCS: 73721

== ENCOUNTER 2024-12-05 13:00 | Outpatient (RCR) | payer OTHER, SELFPAY ==
--- NOTE | 2024-11-06 16:00 | PT.OPEX ---
[facility] [place] Outpatient Eval PT [facility] Outpatient Eval Start: 11/06/24 10:48 Freq: Status: Active Protocol: Document 11/06/24 10:48 CRP (Rec: 11/06/24 14:26 CRP [id number]) E-signed By Kenny Whalen PT Physical Therapy Outpatient Evaluation Insurance Information Recert Due Date 02/04/25 Medical Diagnosis Chronic LBP Referring MD Dr Mckeon Subjective Subjective Pt c/o years of LBP. Has worked with a chiropractor in the past. Pain goes across the low back. Can hurt into bilat SI regions. Now more recently has had L lateral hip pain. Had an injection about 3 weeks ago. Was told she has bursitis. Has also had issues with IT band and uses roller. Walks 30 min per day using 4 WW and also without the walker. Pt can have times of no pain especially sitting. Pain will increase with standing activity. Sleep is OK. Mornings are very stiff and sore. She cannot stand up straight. Needs time standing against the wall to straighten up. Started walking with a cane in recent months. Notes that she now has a limp. Current HEP: bilat piriformis stretch with trunk rotation, Supine pelvic tilt, Supine bike kicks, SL SLR . R TKA 3 yrs ago Osteoporosis Colitis Leukemia Pain Comments 09/30 Current Work Status Retired Objective Other/Pertinent Posture: remains in mild hip flexion, stooped forward Objective posture Trunk ROM: Flex WNL, Ext 5 deg from neutral, bilat SB painful ipsilaterally, bilat rotation mod/matthew dec, seated trunk flex WNL. Transfers - WNL but painful L thigh Hip ROM: Flex, ER WNL bilat. Ext moderately restricted bilaterally. SLR negative bilaterally MMT: Bilat hip flex, knee ext, knee flex, ankle DF 4/5. Hip abd L 3+/5, R 4-/5 and ext 4-/5 bilat. Lumbopelvic flex: 3+/5 SLS balance 2 sec bilat Segmental testing: major hypomobility lower lumbar spine Gait: Amb with SEC. 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 With this the pt also shows signs of L trochanteric pain syndrome. Pts presentation is characterized by painful loss of lumbar spine ROM, decreased hip ROM, poor lumbopelvic sagittal plane motor control, bilat LE weakness and balance deficits. Skilled PT is necessary to incorporate ther ex, nm leila, manual therapy and pt education to decrease pain and improve functional mobility. 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 Pt will be independent with HEP in 8 weeks. Goals 2. Pt will walk with assisted device x 15 min for exer with 75% decrease in pain in 12 weeks. 3. Pt will complete 60 minutes of heel layer with 50% decrease in pain in 12 weeks. Coordination/ Referral Source Communication With Treatment Plan/ Gait Training,Manual Therapy,Neuromuscular Re-ed,Self- Direct Interventions Care/Home Management,Therapeutic Activities,Therapeutic Exercises,Traction (Mechanical) Frequency/Duration 1-2x/wk for 12 weeks Patient Will Be Completion of LTG(s),Skills Plateau,Independent w/HEP, Discharged From Independently Progressing Therapy Evaluation Billing Untimed Code 40 Treatment Minutes Complexity Moderate Certification Information Initial 11/06/24 Certification Date Ending Certification 02/04/25 Date Provider Signature Yes Required Provider Signature POC & Medical Necessity Shows Agreement With Physician NPI Number Write NPI# Here Physician Comment/ : Change Physician Signature Please Sign/Date Here & Date Requested
== END 2024-12-06 08:09 | disposition home or self-care (01) ==
PROVIDERS: PCP Family Medicine; Visit Provider Family Medicine
DX: M54.50 Low back pain, unspecified (principal); G89.29 Other chronic pain; M25.552 Pain in left hip; Z51.89 Encounter for other specified aftercare
CPT/HCPCS: 97110; 97140; 97162

== ENCOUNTER 2025-01-26 13:33 | Emergency (ER) | payer OTHER, SELFPAY ==
--- OUTSIDE RECORDS SUMMARY | 2025-01-26 13:37 | XMS_ITS | Clinical Summary ---
Author Organization [facility] Address [address] [place] [address] Care Team Providers Care Academic Specialist Name Role Phone No Ref-Primary, Physician Primary Care Provider Allergies Active Allergy Reactions Criticality Noted Date Comments Alendronate Other (See Comments) 10/23/2022 Pelvic floor dysfunction Medications clopidogrel (PLAVIX) 75 MG tablet Take 75 mg by mouth daily Active hydrochlorothia zide (HYDRODIURIL) 12.5 MG tablet Take 12.5 mg by mouth daily Active simvastatin (ZOCOR) 20 MG tablet Take 20 mg by mouth At Bedtime Active cyanocobalamin (VITAMIN B-12) 1000 MCG tablet Take 1,000 mcg by mouth daily Active Ascorbic Acid (VITAMIN C) 500 MG CAPS Take 500 mg by mouth daily Active aspirin (ASA) 81 MG chewable tablet Take 81 mg by mouth daily Active vitamin D3 (CHOLECALCIFERO L) 50 mcg (2000 units) tablet Take 1 tablet by mouth daily Active hydroxyurea (HYDREA) 500 MG capsule Take 500 mg by mouth 2 times daily Active acetaminophen (TYLENOL) 500 MG tablet Take 500-1,000 mg by mouth every 6 hours as needed for mild pain Active Family History Medical History Relation Comments [...] School Help Needed Not on file 02/28 Comments Unknown Sex and Gender Information Value Date Recorded Sex Assigned at Not on file Legal Sex Female 4:13 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 Gender Identity Not on file Sexual Orientation Not on file Last Filed Vital Signs Vital Sign Reading Time Taken Comments Blood Pressure 131/67 10/26/2022 2:50 PM CDT Pulse 71 10/26/2022 2:50 PM CDT Temperature 36.4 C (97.5 F) 10/26/2022 12:43 PM CDT Respiratory Rate 16 10/26/2022 2:50 PM CDT [...] HM ORDERS 1940 DEXA 1940 LIPID 1940 FALL RISK ASSESSMENT 2006 MEDICARE ANNUAL WELLNESS VISIT 2006 ZOSTER VACCINE (1 of 2) 06/06/2007 04/11/2007 RSV VACCINE (1 - 1-dose 75+ series) 2016 PHQ-2 (once per calendar year) 2024 COVID-19 VACCINE ( season) 2025 02/12/2022, 09/08/2021, 02/12/2021, Additional history exists INFLUENZA VACCINE (#1) 2025 2, 02/05/2021, 02/14/2020, Additional history exists DTAP/TDAP/TD VACCINE (3 - Td or Tdap) 08/31/2029 09/01/2019, 10/02/2011, 05/24/2001 PNEUMOCOCCAL VACCINE 50+ YEARS Completed 02/18/2015, 08/30/2007 HPV VACCINE (No Doses Required) Completed MENINGITIS VACCINE Aged Out No longer eligible based on patient's age to complete this topic Insurance [employer] Care Teams Academic Specialist Relationship Specialty Start Date End Date No Ref-Primary, Physician PCP - General 10/23/22
--- OUTSIDE RECORDS SUMMARY | 2025-01-26 13:37 | XMS_ITS | Clinical Summary ---
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 Could have been a hornet. Medications acetaminophen (TYLENOL) 500 MG tablet Take 1,000 mg by mouth every 6 (six) hours if needed 0 Active Ascorbic Acid (Vitamin C) 500 MG capsule Take 500 mg by mouth in the morning. Active aspirin 81 MG chewable tablet Chew 81 mg in the morning. Active cholecalciferol (VITAMIN D-3 SUPER STRENGTH) 50 MCG (2000 UT) tablet Take 4,000 Units by mouth in the morning. 3 Active clopidogrel (PLAVIX) 75 MG tablet Take 1 tablet by mouth 1 (one) time each day 3 Active cyanocobalamin (VITAMIN B-12) 1000 MCG tablet Take 1,000 mcg by mouth in the morning. Active Docusate Sodium (DSS) 100 MG capsule Take 1 capsule by mouth 1 (one) time each day if needed Active EPINEPHrine (EPIPEN) 0.3 MG/0.3ML injection syringe Inject 1 Pen into the shoulder, thigh, or buttocks if needed 2 Active famotidine (PEPCID) 20 MG tablet Take 20 mg by mouth in the morning. 3 Active hydroCHLOROthiaz jordin (MICROZIDE) 12.5 MG capsule Take 1 capsule by mouth 1 (one) time each day Active ondansetron ODT (ZOFRAN-ODT) [address] 4 mg under the tongue if needed 3 Active simvastatin (ZOCOR) 20 MG tablet Take 20 mg by mouth 1 (one) time each day in the evening 3 Active vedolizumab (Entyvio) 300 MG injection Infuse 300 mg into a venous catheter every 2 months 3 Active hydroxyurea (HYDREA) 500 MG capsule Take by mouth 1 (one) time each day Take at the same time each day. Active Active Problems Problem Noted Date Diagnosed Date Calculus of kidney 04/11/2007 05/25/2023 Family History Medical History Relation Comments Prostate cancer Father Stroke Mother Relation Status Comments Father Mother Social History Tobacco Use Types Packs/Day Years Used Date Smoking Tobacco: Never Smokeless Tobacco: Never Tobacco Cessation:Counseling Given: Not Answered Alcohol Use Standard Drinks/Week Comments Not Currently 0 (1 standard drink = 0.6 oz pur e alcohol) Comments Unknown Sex and Gender Information Value Date Recorded Sex Assigned at Not on file Legal Sex Female 11:55 AM EST Gender Identity Not on file Sexual Orientation Not on file Last Filed Vital Signs Vital Sign Reading Time Taken Comments Blood Pressure 149/87 06/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 Pulse 103 06/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 Temperature - - Respiratory Rate - - Oxygen Saturation - - Inhaled Oxygen Concentration - - Weight 75.8 kg (167 lb) 06/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 Height 154.9 cm (5' 1) 06/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 Body Mass Index 31.55 06/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
--- OUTSIDE RECORDS SUMMARY | 2025-01-26 13:37 | XMS_ITS | Clinical Summary ---
Author Organization [employer] [facility] [facility] Address [address] [place] [id number] Care Team Providers Care Pound Keeper Name Role Phone Bk Sigala MD Unavailable [phone] Yennifer Baird MD Unavailable Darleen Dacosta DO Primary Care Provider Divya Dudley MD Unavailable Jessica Gibson NP Unavailable Allergies Active Allergy Reactions Criticality Noted Date Comments Alendronate Sodium Other - Describe In Comment Field Medium 05/04/2008 PELVIC FLOOR PAIN Venom-Honey Bee Angioedema,Throat Swelling/Closing High 01/23/2022 has done fine with bees in the past. Could have been a hornet. Medications acetaminophen (TYLENOL EXTRA STRGTH) 500 mg tablet Take 1,000 mg by mouth every 6 hours if needed for Pain. Max acetaminophen dose: 4000mg in 24 hrs. Takes BID 0 0 Active ascorbic acid, vitamin C, (VITAMIN C) 1,000 mg tablet Take 1,000 mg by mouth once daily. Active aspirin 81 mg cap Take by mouth. 0 2 Active EPINEPHrine (EPIPEN) 0.3 mg/0.3 mL auto-injectorIn dications:Anaph ylactic reaction to bee sting, accidental or unintentional, sequela Inject 0.3 mg (1 pen) intramuscular each time if needed for Allergic Reaction. 1 Each 3 2 Active cyanocobalamin (VITAMIN B12) 1,000 mcg tablet Take 1,000 mcg by mouth. Active cholecalciferol , Vitamin D3, 2,000 unit tabletIndicatio ns:Disorder of bone and cartilage Take 2 Tablets (4,000 units) by mouth once daily. 0 3 Active famotidine (PEPCID) 20 mg tablet Take 20 mg by mouth once daily. 3 Active ketoconazole 2% topical (NIZORAL) cream MIX IN 11 RATIO WITH DESONIDE CREAM AND APPLY A THIN LAYER TO THE AFFECTED AREAS AROUND HER MOUTH TWICE DAILY FOR UP TO 2 WEEKS. 3 Active desonide 0.05% (TRIDESILON 0.05% CREAM) 0.05 % cream APPLY TO EYELIDS TWICE DAILY FOR 1-2 WEEKS. MIX 11 WITH KETOCONAZOLE CREAM AND APPLY TO AFFECTED AREAS AROUND MOUTH TWICE DAILY FOR 1-2 WEE 3 Active clobetasol 0.05% TOPICAL (TEMOVATE) 0.05 % external solution 4 Active metroNIDAZOLE 0.75 % cream 4 Active vibegron (Gemtesa) 75 mg tablet Take 75 mg by mouth once daily. Active tamsulosin (FLOMAX) 0.4 mg capsule 1 Capsule. 4 Active hydroCHLOROthia zide 12.5 mg tabletIndicatio ns:HTN (hypertension) TAKE 1 TABLET(12.5 MG) BY MOUTH EVERY DAY 90 Tablet 3 4 Active simvastatin (ZOCOR) 20 mg tabletIndicatio ns:Cerebrovascu lar accident (CVA), unspecified mechanism (HC) TAKE 1 TABLET BY MOUTH EVERY DAY IN THE EVENING 90 Tablet 3 4 Active hydroxyurea (HYDREA) 500 mg capsuleIndicati ons:Leukocytosi s, unspecified type TAKE 1 CAPSULE(500 MG) BY MOUTH TWICE DAILY 180 Capsule 3 4 Active CALCIUM CITRATE ORAL Take 600 mg by mouth once daily. Active vitamin E acetate (VITAMIN E ORAL) Active inFLIXimab (Remicade) 100 mg injection Inject intravenous. Active hypromellose (OASIS TEARS EYE DROPS) Active clopidogreL 75 mg tabletIndicatio ns:Cerebrovascu lar accident (CVA), unspecified mechanism (HC) TAKE 1 TABLET(75 MG) BY MOUTH EVERY MORNING. RESUME TAKING ON Wednesday07/18/21 90 Tablet 5 Active ipratropium 42 mcg (0.06 %) nasal sprayIndication s:Chronic rhinitis INHALE 2 SPRAYS INTO THE AFFECTED NOSTRILS THREE TIMES DAILY IF NEEDED FOR RHINITIS 15 mL 11 5 Active prednisoLONE acetate 1% ophthalmic (ECONOPRED PLUS, PRED FORTE, OMNIPRED) suspension SHAKE LIQUID AND INSTILL 1 DROP IN LEFT EYE FOUR TIMES DAILY FOR 1 WEEK THEN STOP 5 Active estrogens, conjugated (PREMARIN) 0.625 mg/gram vaginal creamIndication s:Postmenopausa l atrophy of urethra apply a small amount of cream 1/2 inch ribbon over the urethra and outer vaginal area at bedtime. 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 Darleen Dacosta D.O. 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 follow up will be in March 2018 with endo and imaging. Dyslipidemia 01/02/2018 Elevated troponin 01/02/2018 Diverticulosis of large intestine without hemorr shai 01/02/2018 Overview (01/23/2020): Severe diverticular stricture, biopsies from the colon showed no microscopic colitis. No follow-up colonoscopy is needed given the severe diverticular stricture and no polyps found today Osteoporosis 08/19/2016 ACP (advance care planning) 01/16/2014 Overview (01/16/2014): Has done living will. 10/09/2011 Bowel habit changes 01/16/2014 Personal history of colonic polyps 09/09/2011 Overview (01/23/2020): Colonoscopy 08/2011 diverticulosis repeat in 5 years Colonoscopy 10/2017 severe diverticular disease, 2 mm polyp, no follow up colonoscopy needed Severe diverticular stricture, biopsies from the colon showed no microscopic colitis. No follow-up colonoscopy is needed given the severe diverticular stricture and no polyps found today HTN (hypertension) 04/01/2009 Leukocytosis, unspecified 08/07/2007 Overview (03/24/2022): In setting of ARF and renal stenting osteopenia 08/06/2007 Overview (02/13/2015): Previous use of actonel 3 years. Off a couple years and then decline. Resumed 2012 and will consider taking for 5 years. Roxanna Brambila M.D. 10/02/2011 11:00 AM History of kidney stones 04/11/2007 Irritable bowel syndrome 04/11/2007 Overview (04/11/2007): collagenus colitis on colonoscopy in 1990, normal exams since then. Cystocele, midline Vaginal vault prolapse Resolved Problems Problem Noted Date Diagnosed Date Resolved Date Left sided colitis, unspecified complication 2 07/22/2022 Acute ischemic colitis 04/03/202107/22 Right hand weakness 12/27/2018 01/11/20 Acute UTI 01/02/2018 01/10/2019 Right lateral abdominal pain 01/02/2018 08/27/2023 Overview (01/06/2018): 2/2 adrenal hematoma vs hemorrhagic mass while on plavix Acute kidney failure, unspecified 08/07/2007 09/21/2007 Overview (08/07/2007): Creatinine elevation to 2.9 after complicated right renal lithotripsy and stent placement. Nonspecific (abnormal) findi ngs on radiological and other examination of genitourinary organs 08/07/2007 04/20/2008 Overview (08/07/2007): Abnormal CT scan: right kidney enlargement, free air external to right ureter, stent in ureter. Nausea with vomiting 08/07/2007 008 Other alteration of consciousness 08/07/2007 04/20/2008 Encounters Date Type Department Care Team Description 01/16/2025 Orders Only [facility] Scanner 1 scan: (1-Ord) NELA CISNEROS BX BY SHAVE METHOD, 01/16/2025 01/10/2025 1:30 PM CDT Orders Only [facility] [address] [place] [address] Lab, [place] Lab 01/10/2025 Travel 12/27/2024 10:49 AM CDT - 12/27/2024 11:59 PM CDT Hospital Encounter [facility] [address] [place] [address] Connor London MD Left sided colitis without complications (HC) (Primary Dx) 12/27/2024 Travel 12/25/2024 Refill [facility] [address] [place] [address] Darleen Dacosta DO Refill Request (Premarin Cream ) 12/22/2024 3:30 PM CDT Office Visit [facility] [address] [place] [address] Darleen Dacosta DO Dysuria (painful before and after urinating) 12/22/2024 Travel 12/11/2024 12:50 PM CDT Office Visit [facility] [address] [place] [address] Anne Mccracken PA UTI 12/11/2024 Telephone [facility] [address] [place] [address] Darleen Dacosta DO Refill Request (Amoxicillin) 12/11/2024 Travel 11/01/2024 12:45 PM CDT Office Visit [facility] [address] [facility] [place] [address] Jessica Gibson, RAIL TRACK LAYER Follow Up (Polycythemia vera) 11/01/2024 12:19 PM CDT - 11/01/2024 11:59 PM CDT Hospital Encounter [facility] [address] [place] [address] Left sided colitis without complications (HC) (Primary Dx) 11/01/2024 Travel 10/30/2024 Refill [facility] [address] [facility] [place] [address] Tyra Forman MD Refill Request (Ipratropium nasal spray ) 10/26/2024 Hospital/[facility] Telephone Encounter [facility] [place] [address] [place] [address] Juju Ibrahim, RN Pre Procedure (PVP) from Last 3 Months Immunizations Immunization Administration Dates Next Due AMB INFLUENZA IIV3 (AGE 65+ YRS) PF (Flu Clinic Only) 02/22/2018 COVID-19 vaccine (Moderna 50mcg/0.5mL) 12YO+ BIVALENT PF, MDV 02/12/2022 COVID-19 vaccine (Pfizer-Bio NTech 30mcg/0.3mL) 12YO+ PATRICK-SUCROSE PF, MDV 09/08/2021 COVID-19 vaccine (Pfizer-Bio NTech 30mcg/0.3mL) PF, MDV 02/12/2021,07/27/2020,07/06/2020 INFLUENZA, IIV3 PF (AGE >= 6 MO) 04/22/2011 Influenza A (H1N1), Inactiva lita (Age >=3 Years) 05/10/2009 Influenza RIV4 (Age 18+ Year s) PRESERV FREE 03/25/2019 Influenza, High-dose Inactivated 03/06/2024,01/23 Influenza, High-dose Quadriv alent Inactivated 03/14/2023 Influenza, IIV3 (Age >=3 years) 02/27/20 14,03/03/2012,04/22/2011,2009,02/27/2009,03/19/2008,03/24/2007,1 06/03/2005 Influenza, IIV4 02/18/2015 Influenza, Inactivated AIIV4 (Age 65+ Years) Preserv Free 02/23/2022,02/05/2021,02/14/2020 Influenza, Inactivated IIV3 (Age 65+ Years) Preserv Free 03/17/2017 Pneumococcal Poly,23-Valent (Pneumovax) 08/30/2007 Pneumococcal conj 13-Valent (Prevnar 13) 02/18/2015 Td (Age >=7 Years) 05/24/2001 Td, Preservative Free (age > = 7 Years) 09/01/2019 Tdap 10/02/2011 Zoster (Shingrix-RZV, recombinant) 11/28/2023,04 / Zoster (Zostavax-ZVL, live) 04/11/2007 Family History Medical [...] Answer Date Recorded PHQ-2 TOTAL SCORE 0 03/29/2024 Social Connections Answer Date Recorded Do you often feel lonely or isolated from those around you? 0 09/25/2024 Financial Resource Strain Answer Date R ecorded Difficulty of Paying Living Expenses 3 09/25/2024 Difficulty of Paying Living Expenses Not on file 09/25/2024 Food Insecurity Answer Date Recorded Do you worry your food will run out before you are able to buy more? 1 09/25/2024 Transportation Needs Answer Date Record ed Does lack of transportation keep you from medica l appointments? 1 09/25/2024 Does lack of transportation keep you from work, meetings or getting things that you need? 1 09/25/2024 Housing Stability Answer Date Recorded What is your housing situation today? 1 09/25/2024 Utilities Answer Date Recorded Do you have trouble paying f or utilities (for example, heat, electricity, water, phone)? 1 09/25/2024 Comments No Sex and Gender Information Value Date Recorded Sex Assigned at Not on file Legal Sex Female 5:24 AM DOCTOR OF NATUROPATHIC MEDICINE Gender Identity Not on file Sexual Orientation Not on file Occupation Industry Job Start Date Job End Date [employer] Not on file Not on file Not on file Obstetrics History Para Term AB IAB SAB Ectopic Multiple Livin g Live Births 4 3 1 1 3 Date Outcome GA Total Labor Labor/2nd/3rd Weight Sex Type Anes PTL Dahlia A1 A5 Name Clin Para Para Para SAB Last Filed Vital Signs Vital Sign Reading Time Taken Comments Blood Pressure 119/57 12/27/2024 10:54 AM CDT Pulse 80 12/27/2024 10:54 AM CDT Temperature 36.2 C (97.2 F) 12/27/2024 10:54 AM CDT Respiratory Rate 17 12/27/2024 10:54 AM CDT Oxygen Saturation 96% 12/27/2024 10:54 AM CDT Inhaled Oxygen Concentration - - Weight 75.8 kg (167 lb) 12/22/2024 3:28 PM CDT Height 156 cm (5' 1.42) 03/29/2024 11:17 AM DOCTOR OF NATUROPATHIC MEDICINE Body Mass Index 31.13 03/29/2024 11:17 AM DOCTOR OF NATUROPATHIC MEDICINE Plan of Treatment Upcoming Encounters Date Type Department Care Team (Late st Contact Info) Description 01/29/2025 8:10 AM CDT Office Visit [facility] [address] [place] [address] Darleen Dacosta DO [address] [facility] [address] 02/20/2025 1:00 PM CDT Orders Only [facility] [address] [place] [address] Lab, [place] 02/22/2025 1:00 PM CDT Office Visit [facility] [address] [place] [address] Divya Dudley MD [address] [place] [address] 02/22/2025 1:30 PM CDT Appointment [facility] [address] [place] [address] Health Maintenance Due Date Last Done Comments RSV vaccine for adults or (1 - 1-dose 75+ series) 2016 COVID-19 vaccine series (8 - Pfizer risk season) 2025 02/09/2024, 03/02/2023, 02/12/2022, Additional history exists Influenza Vaccine (#1) 2025 , 02/23/2022, 02/05/2021, Additional history exists BMI (ht and wt on same day) for age 18+ 03/29/2025 03/29/2024, 08/23/2023, 05/13/2023, Additional history exists Medicare Wellness for age 65+ 03/30/2025 03/29/2024, 03/17/2017, 02/17/2016, Additional history exists Depression screening for age 12+ 03/31/2025 03/31/2024, 03/29/2024, 01/23/2022, Additional history exists Tetanus booster 08/31/2029 09/01/2019, 09/21, 10/02/2011, Additional history exists Pneumococcal series for age 50+ Completed 02/18/2015, 08/30/2007 DEXA/DXA scan for age 65+ Completed 2021, 02/17/2016, 11/11/2012, Additional history exists Zoster (shingles) series for age 50+ Completed 11/28/2023, 09/15/2023, 04/11/2007 Hepatitis B series for 19+ Aged Out N o longer eligible based on patient's age to complete this topic Medical Devices Implanted Type Area Intelligence Operations Device Identifier Shelf Expiration Date Model / Serial / Lot Stent Uret [id number] W/Tether - [id number] Implanted:Qty: 1 on 05/04/2008 at [facility] Left: Ureter [employer] Miguelina [id number]# / / [id number] Stent Uret [id number] Silhouette - [id number] Implanted:Qty: 1 on 12/28/2018 by Ryley Dunbar MBBS at [facility] Left: Ureter [employer] Miguelina [id number]# / / [id number] Mesh Pelvic [id number] Gynemesh - [id number] Implanted:Qty: 1 on 07/15/2021 by Jessica Campbell MD at [facility] Pelvis [employer] H / Uro 04/22/2026 [id number] / / [id number] Stent Uret [id number] Contour - [id number] Implanted:Qty: 1 on 08/04/2023 by Feliz Maddox MD at [facility] Right: Ureter [facility] 04/14/2026 [id number] / / [id number] Explanted Type Area Intelligence Operations Device Identifier Shelf Expiration Date Model / Serial / Lot Power Port Isp Mri 6fr [id number] - [id number] Implanted:Qty : 1 on 12/14/2019 by Nida Bello DO at [facility] Explanted:Qty : 1 on 07/17/2020 by Nida Bello DO at [facility] Right: Subclavian Vein [employer] 01/21/2021 [id number] / / [id number] Procedures Procedure Name Priority Date/Time Associated Diagnosis Comments SCAN-OPERATIVE/PROCE DURE REPORT 01/16/2025 12:00 AM CDT URINE CULTURE Routine 12/11/2024 12:53 PM CDT Lower urinary tract symptoms (LUTS) URINALYSIS MICROSCOPIC Routine 12/11/2024 12:53 PM CDT Lower urinary tract symptoms (LUTS) URINALYSIS [facility] ONLY POC DIP (QUEST) Routine 12/11/2024 12:53 PM CDT Lower urinary tract symptoms (LUTS) XR DXA BONE DENSITY 2 SITES AXIAL Routine 10/06/2021 1:53 PM CDT Post-menopausal from Last 3 Months or Most Recently Relevant to Health Maintenance Results * SCAN-OPERATIVE/PROCEDURE REPORT (01/16/2025 12:00 AM CDT) us Scanner OTHER Final Result * (ABNORMAL) POCT Urinalysis Dipstick Only [[id number]] (12/11/2024 12:53 PM CDT) PH 7.0 5.0 - 8.0 [facility] SPECIFIC GRAVITY 1.015 1.001 - 1.035 [facility] GLUCOSE NEGATIVE NEGATIVE [facility] BILIRUBIN NEGATIVE NEGATIVE [facility] KETONES NEGATIVE NEGATIVE [facility] OCCULT BLOOD TRACE(A) NEGATIVE [facility] PROTEIN NEGATIVE NEGATIVE [facility] NITRITE NEGATIVE NEGATIVE [facility] LEUKOCYTE ESTERASE NEGATIVE NEGATIVE [facility] Urine URINE SPECIMEN / Unknown 12/11/2024 12:53 PM CDT 12/11/2024 12:53 PM CDT Anne LAGUNA URINE Final Result [facility] [address] [place] [address], [facility] [address] [place] [address] * URINALYSIS MICROSCOPIC [28546.1] - routine (12/11/2024 12:53 PM CDT) RBC 0-2 0-2, None Seen /HPF 12/12/2024 12:[address] [facility] WBC 0-2 0-2, 3-5, None Seen /HPF 12/12/2024 12:29 AM CDT [facility] BACTERIA None Seen None Seen, Rare, Few Bacteria/ HPF 12/12/2024 12:29 AM CDT [facility] EPITHELIAL CELLS None Seen None Seen, Few Epi/HPF 12/12/2024 12:[address] CD[address] [facility] HYALINE CASTS 0-2 0-2, 3-5 /LPF 12/12/2024 12:29 AM CDT [facility] Urine URINE SPECIMEN / Unknown Non-Blood / Unknown 12/11/2024 12:53 PM CDT 12/11/2024 12:53 PM CDT us Anne LAGUNA URINE Final Result [facility] [address] [place] [address], [place] * URINE CULTURE [88570.2] (12/11/2024 12:53 PM CDT) CULTURE No growth (<1,000 CFU/mL) 12/13/2024 2:03 PM CDT [facility] Urine URINE SPECIMEN / Unknown Non-Blood / Unknown 12/11/2024 12:53 PM CDT 12/11/2024 12:53 PM CDT Anne LAGUNA MICROBIOLOGY Final Result [facility] [address] [place] [address], * (ABNORMAL) XR DXA BONE DENSITY 2 SITES AXIAL (10/06/2021 1:53 PM CDT) Anatomical Region Laterality Modality Spine, HIPS, HIPL, HIPR Other Impressions 10/08/2021 9:28 AM CDT Osteoporosis. RECOMMENDATIONS: The National Osteoporosis Foundation recommends pharmacologic treatment for patients with T-scores of -2.5 or less, patients with prior history of fragility fractures, or patients with 10-year probability of greater than 3% at hips or greater than 20% of suffering major osteoporotic fractures. Recommend continued optimization of calcium and vitamin D intake through dietary means and/or supplementation and regular exercise. Consider pharmacologic therapy for osteoporosis. Follow-up bone density reading in 2 years if therapy initiated to assess therapeutic efficacy. Ameena Hernandez PA-C Narrative 10/08/2021 9:28 AM CDT For Patients: Results are automatically released to your [facility] account once available, in compliance with federal regulations. This means that you may see your results before your provider has had a chance to review them. Please allow 2-3 business days for your provider to comment on the results. XR DXA Bone Mineral Density (BMD) EXAM LOCATION: [address] [address] PATIENT NAME: Dolly Chau DATE OF : 1940 EXAM DATE: 10/06/2021 REQUESTING PROVIDER: Darleen Dacosta DO GENDER AT : female HEIGHT: 5' 1 (07/15/2021) WEIGHT: 156 lb 9.6 oz (10/03/2021) MENOPAUSAL STATUS: Postmenopausal RACE/ETHNICITY: White RISK FACTORS: Family History of Osteoporosis and White Race CURRENT MEDICATION FOR BONE LOSS: NONE INDICATION: Follow-up of existing osteopenia COMPARISON DATE(S): 2015 DXA scans are compared to prior studies for a patient only when the two (or more) studies were performed on the same scanner. It is not possible to compare data generated on one scanner to data from another because there are not standards in DXA equipment. This applies even if the two scanners are made by the same electrical instrument technician. PROCEDURE: Dual-energy x-ray absorptiometry performed with routine technique. Reporting is completed in the form of a T-score. The T-score represents the standard deviation from peak bone mass based on young healthy adult. A Z-score is used for diagnosis in premenopausal women, and for men under the age of 50. FINDINGS: RESULT LUMBAR SPINE L2 - L4 BMD: 0.8362 g/cm2 T-Score: - 3.0 Z-Score: - 1.4 Change from prior in 2016: Decrease 7.2%. RESULTS FEMUR Left femoral neck BMD: 0.706 g/cm2 T-Score: - 2.4 Z-Score: - 0.4 Change from prior in 2016: Decrease 4.6%. Right femoral neck BMD: 0.653 g/cm2 T-Score: - 2.8 Z-Score: - 0.7 Change from prior in 2016: Decrease 4.4%. Left hip BMD: 0.666 g/cm2 T-Score: - 2.7 Z-Score: - 0.8 Change from prior in 2016: Decrease 9.6%. Right hip BMD: 0.608 g/cm2 T-Score: - 3.2 Z-Score: - 1.3 Change from prior in 2016: Decrease 11.9%. WHO criteria: Normal: T-score at or above -1 SD Osteopenia: T-score between -1.1 and -2.4 SD Osteoporosis: T-score at or below -2.5 SD Darleen Dacosta DO DEXA Final Resul t from Last 3 Months or Most Recently Relevant to Health Maintenance Insurance MEDICARE PART A HB ONLY MEDICA ADVANTAGE Member Subscriber Plan / Payer (Ef fective 2020-Present) Name:Dolly Chau Relation to Subscriber:Self Name:Dolly Chau Payer ID:[id number] (NA) Type:Not on file Address: [employer] [address] [address] [place] [address] Advance Directives Documents on File Type Date Recorded Patient Breakfast Host Expl anation Healthcare Directive 10/09/2011 1:24 PM HE ALTH CARE DIRECTIVE, [facility], 11/17/10 Healthcare Directive 08/09/2007 * Full Code (Latest Code Status on File) Date Activated Date Inactivated Comments 09/01/2023 9:50 AM 09/02/2023 2:34 AM Question Answer Comments Code Status Discussion: Unable to Assess Preferences, Provider to review later * Full Code Date Activated Date Inactivated Comments 08/04/2023 9:18 AM 08/04/2023 6:29 PM Question Answer Comments Code Status Discussion: Not Discussed * Full Code Date Activated Date Inactivated Comments 07/15/2021 7:49 AM 07/16/2021 5:05 PM Question Answer Comments Code Status Discussion: Not Discussed * Full Code Date Activated Date Inactivated Comments 07/15/2021 5:59 AM 07/15/2021 7:49 AM Question Answer Comments Code Status Discussion: Reviewed Preferences * Full Code Date Activated Date Inactivated Comments 03/31/2021 2:52 PM 04/03/2021 7:26 PM Question Answer Comments Code Status Discussion: Reviewed Preferences Care Teams Pound Keeper Relationship Specialty Start Date End Date Darleen Dacosta DO [place] [address] [place] [address] PCP - General Family Practice 12/23/15 Bk Sigala MD [address] [place] [id number] Surgery - Urology 10/02/11 Yennifer Baird MD [address] [place] [id number] Ophthalmology Surgery 11/22/12 Divya Dudley MD [address] [place] [address] Oncology Hematology and Oncology 12/06/19 Jessica Gibson, RAIL TRACK LAYER [address] [place] [address] Oncology Nurse Practitioner - Family 12/06/19
--- OUTSIDE RECORDS SUMMARY | 2025-01-26 13:38 | XMS_ITS | CCD ---
Author Name Interface, [id number] lity Address [address] [facility] [address] [address] [facility] Address [address] [facility] [address] [address] Allergies and Adverse Reactions Medication/Group Name Reaction Severity Date Fosamax 12/04/2019 Reason for Visit DYE RANGE OPERATOR CLOTH - DYE RANGE OPERATOR CLOTH 0123 POLYCYTHEMIA VERA - ALISE DETERT, DO Medications Date Name Route Dose Frequency Instructions Start Date End Date Status Ferrous Sulfate Oral PO 1.0 tablet daily active Simvastatin Oral PO 1.0 tablet daily active Docusate Sodium Oral PO 1.0 capsule PRN for constipation active Tamsulosin Oral PO 1.0 capsule daily active Aspirin Oral PO 1.0 tablet daily active Clopidogrel Oral PO 1.0 tablet daily active Hydroxyurea Oral PO 1.0 capsule BID active Vitamin E Oral ac tive Hydrochlorothiazide Oral PO 1.0 capsule daily active Ascorbic Acid Oral PO 1.0 tablet daily inactive Cholecalciferol Oral PO 1.0 capsule daily active Problems Diagnosis Status Date of Diagnosis Resolution Date Polycythemia vera Active Social History Date Name Value 12/04/2019 Sex Female
--- OUTSIDE RECORDS SUMMARY | 2025-01-26 13:38 | XMS_ITS ---
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 DIRECTOR OF HUMAN RESOURCES Chen Gann NAGA YCYTHEMIA VERA - ALISE JUDI, DO 12/04/2019 APPOINTMENT BRIANDA Gann NAGA YCYTHEMIA VERA - ALISE JUDI, DO Reason for Visit BRIANDA Gann POLYCYTHEMIA VERA - ALISE JUDI, Encounters Date Name 12/04/2019 Polycythemia vera Medications Date Name Route Dose Frequency Instructions Start Date End Date Status Hydrochlorothiazide Oral PO 1.0 capsule daily active Vitamin E Oral ac tive Aspirin Oral PO 1.0 tablet daily active Hydroxyurea Oral PO 1.0 capsule BID active Cholecalciferol Oral PO 1.0 capsule daily active Tamsulosin Oral PO 1.0 capsule daily active Clopidogrel Oral PO 1.0 tablet daily active Simvastatin Oral PO 1.0 tablet daily active Docusate Sodium Oral PO 1.0 capsule PRN for constipation active Ferrous Sulfate Oral PO 1.0 tablet daily active Problems Diagnosis Status Date of Diagnosis Resolution Date Polycythemia vera Active Vital Signs Date Type Value 12/04/2019 Body Temperature 98.10 12/04/2019 Heart Beat 81.00 12/04/2019 Respiratory Rate 18.00 12/04/2019 Oxygen Saturation 98.00 12/04/2019 BSA 1.73 12/04/2019 Pain Scale 0.00 12/04/2019 Weight 162.00 12/04/2019 Height 61.00 12/04/2019 BMI 30.61 12/04/2019 Intravascular Systolic 132 12/04/2019 Intravascular Diastolic 84
[2025-01-26 13:39] VITALS: BP 153/80; PULSE 72; RESP 18; TEMP 36.1; O2SAT 94
--- NOTE | 2025-01-26 14:05 | ED.GENADULT ---
HPI - General Adult General Chief complaint: Abdominal Pain Stated complaint: colitis Time Seen by Provider: 01/26/25 13:34 History of Present Illness HPI narrative: Reports currently being treated for colitis with Remicade. She reports that for the past few hours she has felt increase in pain in lower left abdomen, also feels nauseous. Reports always feeling constipated, took 1/2 dose of miralax yesterday. 84-year-old woman presenting to the emergency department with complaint of left mid abdominal pain that is consistent with her symptoms of recurrent colitis. She is being treated with Remicade for this she says. She has not had a fever. Does struggle with constipation but does have daily bowel movements; there often hard. She has also been having some dysuria which has been going on for quite some time. She says being treated with Premarin for this. Over the last 4 hours had abrupt increase in left mid abdominal pain which now by the time I am seeing her has essentially resolved. She has not had fever or chills. She did message her GI doc who suggested that she take a capful of magnesium citrate and otherwise could see her in a week. She is worse to present to the emergency department. She does his pain is quite intense but now has gone. She is nauseated but this is not a unique feeling. She would appreciate something for nausea. Has not noticed any hematuria. Related Data Home Medications ?Medication ?Instructions ?Recorded ?Confirmed ascorbic acid (vitamin C) 1,000 mg 1,000 mg PO DAILY 11/19/21 10/10/24 tablet aspirin 81 mg tablet,delayed 81 mg PO DAILY 11/19/21 10/10/24 release clopidogrel 75 mg tablet 75 mg PO DAILY 11/19/21 10/10/24 hydroxyurea 500 mg capsule 500 mg PO BID 11/19/21 10/10/24 simvastatin 20 mg tablet 20 mg PO HS 11/19/21 10/10/24 cholecalciferol (vitamin D3) 25 50 mcg PO DAILY 11/21/21 10/10/24 mcg (1,000 unit) capsule vitamin E (dl, acetate) 450 mg 450 mg PO DAILY 11/21/21 10/10/24 (1,000 unit) capsule hydrochlorothiazide 12.5 mg tablet 12.5 mg PO DAILY 06/08/22 10/10/24 acetaminophen 500 mg tablet 1,000 mg PO Q6H PRN 06/18/22 10/10/24 vitamin B complex (B 1 tab PO QDAY 07/02/22 10/10/24 Complex-Vitamin B12 tablet) omeprazole 20 mg capsule,delayed 20 mg PO DAILY 12/11/22 10/10/24 release Hemp seed oil - 4% lidocaine topical 09/25/24 10/10/24 ipratropium bromide 42 mcg (0.06 2 spray intranasal 3XD PRN 09/25/24 10/10/24 %) nasal spray ketoconazole 2 % shampoo topical 2XW 09/25/24 10/10/24 tamsulosin 0.4 mg capsule 0.4 mg PO QPM 09/25/24 10/10/24 infliximab IV 01/26/25 Previous Rx's ?Medication ?Instructions ?Recorded Walker- 2 Wheels #1 ea 12/25/21 amoxicillin 500 mg capsule 2,000 mg (4 x 500 mg) PO ONCE #4 12/11/24 caps Allergies Allergy/AdvReac Type Severity Reaction Status Date / Time alendronate sodium Allergy Severe severe Verified 10/10/24 10:47 aches bee venom protein (honey bee) Allergy Severe Swelling Verified 10/10/24 10:47 of Lip/Tongue/Throat Review of Systems Status of ROS: Reports: 6 or more systems reviewed and unremarkable except as noted in History and below [facility] Medical History History of urinary retention ?Z87.898 - Personal history of other specified conditions (ICD-10) Diarrhea ?R19.7 - Diarrhea, unspecified (ICD-10) Retention of urine ?R33.9 - Retention of urine, unspecified (ICD-10) Postoperative hemorrhage Nausea and vomiting ?R11.2 - Nausea with vomiting, unspecified (ICD-10) Left lower quadrant abdominal pain ?R10.32 - Left lower quadrant pain (ICD-10) Diverticulitis ?K57.92 - Diverticulitis of intestine, part unspecified, without perforation or abscess without bleeding (ICD-10) Dehydration ?E86.0 - Dehydration (ICD-10) Cerebrovascular disease ?I67.9 - Cerebrovascular disease, unspecified (ICD-10) Abdominal pain ?R10.9 - Unspecified abdominal pain (ICD-10) Osteoarthritis of hip ?M16.9 - Osteoarthritis of hip, unspecified (ICD-10) Pelvic floor dysfunction in female ?M62.89 - Other specified disorders of muscle (ICD-10) 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 - Genetic susceptibility to other disease (ICD-10) Macrocytosis without anemia ?D75.89 - Other specified diseases of blood and blood-forming organs (ICD-10) Colitis ?K52.9 - Noninfective gastroenteritis and colitis, unspecified (ICD-10) Osteoarthritis of right knee ?M17.11 - Unilateral primary osteoarthritis, right knee (ICD-10) Polycythemia vera ?D45 - Polycythemia vera (ICD-10) Osteoarthritis of right hip ?M16.11 - Unilateral primary osteoarthritis, right hip (ICD-10) Cancer ?C80.1 - Malignant (primary) neoplasm, unspecified (ICD-10) Arthritis ?M19.90 - Unspecified osteoarthritis, unspecified site (ICD-10) Neck problem ?R68.89 - Other general symptoms and signs (ICD-10) Back problem ?M53.9 - Dorsopathy, unspecified (ICD-10) Osteoporosis ?M81.0 - Age-related osteoporosis without current pathological fracture (ICD-10) Kidney problem ?N28.9 - Disorder of kidney and ureter, unspecified (ICD-10) IBS (irritable bowel syndrome) ?K58.9 - Irritable bowel syndrome without diarrhea (ICD-10) Elevated cholesterol ?E78.00 - Pure hypercholesterolemia, unspecified (ICD-10) High blood pressure ?I10 - Essential (primary) hypertension (ICD-10) Asthma ?J45.909 - Unspecified asthma, uncomplicated (ICD-10) History of cerebrovascular accident ?Z86.73 - Personal history of transient ischemic attack (TIA), and cerebral infarction without residual deficits (ICD-10) Acute left flank pain ?R10.9 - Unspecified abdominal pain (ICD-10) Surgical History 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) ?Z96.641 - Presence of right artificial hip joint (ICD-10) S/P arthroscopic partial lateral meniscectomy (11/12/21) ?Z98.890 - Other specified postprocedural states (ICD-10) Weakness of pelvic floor ?N81.89 - Other female genital prolapse (ICD-10) Bone spur ?M77.9 - Enthesopathy, unspecified (ICD-10) History of hysterectomy ?Z90.710 - Acquired absence of both cervix and uterus (ICD-10) Hx of breast biopsy ?Z98.890 - Other specified postprocedural states (ICD-10) Family History Family/Other Breast cancer Colorectal cancer Sister Ovarian cancer Father Prostate cancer Paternal Grandmother Diabetes Mother CHF (congestive heart failure) Stroke Family/Other Parkinson disease Alcohol dependence Social History Narrative: Marital Status: 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 NAD. Skin is warm and dry. She has some large bruising; purple on her left shoulder. Some forearm bruising as well. No swelling here. Breathing easily. Heart in regular rate and rhythm. Abdomen is protuberant soft. Present bowel sounds. Nontender now. Extremities well perfused. She is without edema. Const: Vital Signs, click to edit/add: Vital Signs - 24 hr 01/26/25 13:39 01/26/25 16:13 Temperature 96.9 F L Pulse Rate [Pulse Oximeter] 72 82 Respiratory Rate 18 18 Blood Pressure [Ri ght Upper Arm] 153/80 H 138/86 Pulse Oximetry 94 95 Oxygen Delivery Me thod Room Air Room Air Documenting provider has reviewed patient's vital signs: yes Course Vital Signs Vital signs: Initial Vital Signs Temperature 96.9 F L 01/26/25 13:39 Temperature Source Temporal Artery Scan 01/26/25 13:39 Pulse Rate 72 01/26/25 13:39 Respiratory Rate 18 01/26/25 13:39 Blood Pressure 153/80 H 01/26/25 13:39 Blood Pressure Mean 104 01/26/25 13:39 Pulse Oximetry 94 01/26/25 13:39 Oxygen Delivery Method Room Air 01/26/25 13:39 Vital Signs Temperature 96.9 F L 01/26/25 13:39 Pulse Rate 72 01/26/25 13:39 Respiratory Rate 18 01/26/25 13:39 Blood Pressure 153/80 H 01/26/25 13:39 Pulse Oximetry 94 01/26/25 13:39 Oxygen Delivery Method Room Air 01/26/25 13:39 Temperature 96.9 F L 01/26/25 13:39 Pulse Rate 82 01/26/25 16:13 Respiratory Rate 18 01/26/25 16:13 Blood Pressure 138/86 01/26/25 16:13 Pulse Oximetry 95 01/26/25 16:13 Oxygen Delivery Method Room Air 01/26/25 16:13 Medications Administered Medications: Discontinued Medications Generic Name Dose Route Start Last Admin Trade Name Freq PRN Reason Stop Dose Admin Ondansetron HCl 4 mg 01/26/25 14:21 01/26/25 14:28 Ondansetron Odt 4 Mg Tab PO 01/26/25 14:22 4 mg ONCE ONE Administration Medical Decision Making MDM Narrative Medical decision making narrative: We discussed evaluation for her colitis. I do see in history that she does have a history of diverticulitis. She denies that she has urinary tract infection she denies that she has a kidney stone. Think it would still be prudent to check urinalysis. Reassuring as this abdominal exam now is nontender. The suggests maybe more discomfort related to constipation or gas perhaps. Passed kidney stone? She is wondering whether she needs much done. I did propose though maybe checking labs to look for red flags. Note history of polycythemia vera would anticipate evidence of this in labs as well. Given dose of Zofran. Monitor. Labs are reassuring. Urinalysis though with some blood. No indication of infection. Seems more inflammatory possibly related to ureteral stone. I do review records showing CT scan with small stone burden in kidneys from 2021. I do clarify with Pat that she has indeed actually had kidney stones. In fact in 2023 did have some procedure for what sounds like ureteral stones. She remains pain-free. Did propose further investigation possibly imaging but she feels well and anticipates going home and returning if necessary. See patient discharge plan for further discussion I am happy you're feeling better. Discuss today's visit on for follow-up on Wednesday with your doctor. You might consider treating harder stool with a suppository overnight or an enema repeating in an hour if no good result. Otherwise take your MiraLax. Dilute each dose in at least 8 oz of liquid. Consider taking up to 3 dosings in a day and then adjust to stool consistency over time. If pain escalates again and continues, would return for re-evaluation particularly if accompanied by fever or vomiting. Medical Records Medical records reviewed: Yes I reviewed the patient's medical records Lab Data Lab results reviewed: Yes I reviewed the patient's lab results Labs: Lab Results 01/26/25 01/26/25 Range/Units 14:36 14:40 WBC 4.32 L (4.50-11.00) K/uL RBC 3.12 L (4.00-5.20) m/uL Hgb 12.5 (12.0-16.0) gm/dL Hct 38.2 (33.0-51.0) % MCV 122 H (80-100) fL MCH 40 H (26-34) pg MCHC 33 (32-36) gm/dL RDW Coeff of Boy 14.3 (11.5-15.5) % Plt Count 263 (140-440) K/uL Neut % (Auto) 67.2 (42.0-72.0) % Lymph % (Auto) 21.1 (20-44) % [place] % (Auto) 9.7 (0.0-11.0) % Eos % (Auto) 0.9 (0.0-7.0) % Baso % (Auto) 0.2 (0.0-3.0) % Neut # (Auto) 2.90 (1.7-7.0) K/uL Lymph # (Auto) 0.90 (0.90-2.90) K/uL [place] # (Auto) 0.40 (0.00-0.90) K/UL Eos # (Auto) 0.00 (0.00-0.50) K/uL Baso # (Auto) 0.00 (0.00-0.30) K/uL Abs Immat Gran (auto) 0.00 (0.00-0.30) K/uL Imm/Tot Granulo (auto) 0.9 % Sodium 136 (135-149) mmol/L Potassium 4.6 (3.6-5.1) mmol/L Chloride 99 (96-114) mmol/L Carbon Dioxide 32 (20-32) mmol/L Anion Gap 5 L (7-15) mEq/L BUN 19 (7-30) mg/dL Creatinine 0.7 (0.5-1.5) mg/dL Estimated GFR 86 ml/min Glucose 116 H (60-115) mg/dL Calcium 10.0 (8.4-10.6) mg/dL C-Reactive Protein < 0.5 L (0.5-1.0) mg/dL Urine Color Yellow (Yellow) Urine Appearance Clear (Clear) Urine pH 6.5 (5.0-8.5) Ur Specific [place] 1.020 (1.000-1.030) Urine Protein 1+ A (Negative) Urine Glucose (UA) Negative (Negative) Urine Ketones Negative (Negative) Urine Blood Trace-intact A (Negative) Urine Nitrite Negative (Negative) Urine Bilirubin Negative (Negative) Urine Urobilinogen 0.2 (0.2-1.0) Ur Leukocyte Esterase Negative (Negative) Urine RBC 2-5 A (0-2) Urine WBC 2-5 (0-5) Ur Squamous Epith Cells Few (None-Few) Urine Bacteria Few A (None) Discharge Plan Discharge Clinical Impression: Abdominal pain, Hematuria, Constipation Patient Disposition: Home w/ Parent or Adult Condition: Improved Instructions: Constipation (ED) Additional Instructions: I am happy you're feeling better. Discuss today's visit on for follow-up on Wednesday with your doctor. You might consider treating harder stool with a suppository overnight or an enema repeating in an hour if no good result. Otherwise take your MiraLax. Dilute each dose in at least 8 oz of liquid. Consider taking up to 3 dosings in a day and then adjust to stool consistency over time. If pain escalates again and continues, would return for re-evaluation particularly if accompanied by fever or vomiting. Prescriptions: No Action omeprazole 20 mg capsule,delayed release(DR/EC) 20 mg PO DAILY simvastatin 20 mg tablet 20 mg PO HS aspirin 81 mg tablet,delayed release (DR/EC) 81 mg PO DAILY clopidogrel 75 mg tablet 75 mg PO DAILY hydroxyurea 500 mg capsule 500 mg PO BID ascorbic acid (vitamin C) 1,000 mg tablet 1,000 mg PO DAILY cholecalciferol (vitamin D3) 25 mcg (1,000 unit) capsule 50 mcg PO DAILY vitamin E (dl, acetate) 450 mg (1,000 unit) capsule 450 mg PO DAILY (DME) Walker- 2 Wheels Misc See Rx Instructions .Route Qty: 1 0RF Rx Instructions: As directed vitamin B complex [B Complex-Vitamin B12] Tablet 1 tab PO QDAY tamsulosin 0.4 mg capsule 0.4 mg PO QPM ipratropium bromide 42 mcg (0.06 %) spray,non-aerosol 2 spray intranasal 3XD PRN ketoconazole 2 % shampoo topical 2XW Hemp seed oil - 4% lidocaine topical hydrochlorothiazide 12.5 mg tablet 12.5 mg PO DAILY acetaminophen 500 mg tablet 1,000 mg PO Q6H PRN infliximab [Remicade] IV amoxicillin 500 mg capsule 2,000 mg PO ONCE Qty: 4 3RF Rx Instructions: Take 4 capsules orally 1 hour prior to dental appointment Follow Up/Referrals: Darleen Dacosta DO [Primary Care Provider, Family Practice] Stand Alone Forms: MyHealth Info Instructions
--- OUTSIDE RECORDS SUMMARY | 2025-01-26 14:27 | XMS_ITS ---
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
--- OUTSIDE RECORDS SUMMARY | 2025-01-26 14:27 | XMS_ITS | CCD ---
Author Name Interface, [id number] lity Address [address] [facility] [address] [address] 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 0123 POLYCYTHEMIA VERA - ALISE DETERT, DO Medications Date Name Route Dose Frequency Instructions Start Date End Date Status Docusate Sodium Oral PO 1.0 capsule PRN for constipation active Ferrous Sulfate Oral PO 1.0 tablet daily active Simvastatin Oral PO 1.0 tablet daily active Tamsulosin Oral PO 1.0 capsule daily active Aspirin Oral PO 1.0 tablet daily active Clopidogrel Oral PO 1.0 tablet daily active Hydroxyurea Oral PO 1.0 capsule BID active Hydrochlorothiazide Oral PO 1.0 capsule daily active Vitamin E Oral ac tive Ascorbic Acid Oral PO 1.0 tablet daily inactive Cholecalciferol Oral PO 1.0 capsule daily active Problems Diagnosis Status Date of Diagnosis Resolution Date Polycythemia vera Active Social History Date Name Value 12/04/2019 Sex Female
--- OUTSIDE RECORDS SUMMARY | 2025-01-26 14:27 | XMS_ITS ---
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
--- OUTSIDE RECORDS SUMMARY | 2025-01-26 14:27 | XMS_ITS | CCD ---
Author Name Interface, [id number] lity Address [address] [facility] [address] [address] [facility] Address [address] [facility] [address] [address] Allergies and Adverse Reactions Medication/Group Name Reaction Severity Date Fosamax 12/04/2019 Reason for Visit FISHER DIP NET - FISHER DIP NET 0123 POLYCYTHEMIA VERA - ALISE DETERT, DO [...]
[2025-01-26] MEDS: ONDANSETRON ODT 4 MG TAB PO (14:28)
[2025-01-26 14:49] LABS: Hematocrit 38.2 % (33.0-51.0); Hemoglobin* 12.5 gm/dL (12.0-16.0); Immature Granulocytes Pct Auto 0.9 %; Mean Corpuscular HGB Conc 33 gm/dL (32-36); Mean Corpuscular Hemoglobin 40 pg (26-34); Mean Corpuscular Volume 122 fL (80-100); RDW Coefficient of Variation % 14.3 % (11.5-15.5); Red Blood Count 3.12 m/uL (4.00-5.20); White Blood Count* 4.32 K/uL (4.50-11.00)
[2025-01-26 14:52] LABS: Immature Granulocytes Abs Auto 0.00 K/uL (0.00-0.30); Lymphocytes Absolute Auto 0.90 K/uL (0.90-2.90); Slide Review Reflex No
[2025-01-26 15:00] LABS: Chloride* 99 mmol/L (96-114); Sodium* 136 mmol/L (135-149)
[2025-01-26 15:01] LABS: Potassium* 4.6 mmol/L (3.6-5.1)
[2025-01-26 15:03] LABS: Blood Urea Nitrogen* 19 mg/dL (7-30); Creatinine* 0.7 mg/dL (0.5-1.5); Estimated Glomerular Filt Rate 86 ml/min
[2025-01-26 15:04] LABS: Anion Gap 5 mEq/L (7-15); Calcium* 10.0 mg/dL (8.4-10.6); Carbon Dioxide* 32 mmol/L (20-32); Glucose* 116 mg/dL (60-115)
[2025-01-26 15:08] LABS: Appearance Urine Clear (Clear)
[2025-01-26 16:13] VITALS: BP 138/86; PULSE 82; RESP 18; O2SAT 95
== END 2025-01-26 16:16 | disposition home or self-care (01) ==
PROVIDERS: Emergency Provider Family Medicine; PCP Family Medicine
DX: R31.9 Hematuria, unspecified (principal); K59.00 Constipation, unspecified
CPT/HCPCS: 36415; 80048; 81001; 85025; 86140; 87086; 99284; A9270

== ENCOUNTER 2025-05-12 08:01 | Emergency (ER) | payer OTHER, SELFPAY ==
--- OUTSIDE RECORDS SUMMARY | 2025-03-14 09:45 | XMS_ITS ---
Author Organization [facility] Address [address] [place] [address] Care Team Providers Care Hat Conditioner Name Role Phone None, No PCP Primary Care Provider Unavailabl e Heber Ventura Unavailable [phone] Heber Ventura Unavailable Unavailable REASON FOR VISIT Bladder Consult Encounters Encounter Location Date Provider Diagnosis [facility] [address] [place] [address] 03/14/2025 Heber Ventura Plan Of Treatment Next Appt Details Provider Name:Arlene Melgar, 0 05/30/2025 11:00:00 AM, [address] [place], [address], Provider Name:Arlene Melgar, 0 05/30/2025 11:00:00 AM, [address] [place], [address], Provider Name:Arlene Melgar, 0 06/06/2025 10:45:00 AM, [address] [place], [address], Provider Name:Arlene Melgar, 0 06/06/2025 10:45:00 AM, [address] [place], [address], Provider Name:Arlene Melgar, 0 06/13/2025 10:30:00 AM, [address] [place], [address], Provider Name:Arlene Melgar, 0 06/13/2025 10:30:00 AM, [address] [place], [address], Provider Name:Arlenebob Melgar, 0 06/20/2025 01:00:00 PM, [address], [place], [address], Provider Name:Arlene Melgar, 0 06/20/2025 01:00:00 PM, [address], [place], [address], Provider Name:Paul Velez, 06/28/2025 11:15:00 AM, [address], [place], [address], Provider Name:Arlene Melgar, 0 06/28/2025 11:15:00 AM, [address], [place], [address], Provider Name:Paul Velez, 07/05/2025 10:30:00 AM, [address], [place], [address], Provider Name:Arlene Ramón, 0 07/05/2025 10:30:00 AM, [address], [place], [address], Provider Name:Arlene Melgar, 0 07/11/2025 11:00:00 AM, [address], [place], [address], Provider Name:Arlene Ramón, 0 07/11/2025 11:00:00 AM, [address], [place], [address], Provider Name:Arlene Ramón, 0 07/18/2025 10:30:00 AM, [address], [place], [address], Provider Name:Arlene Ramón, 0 07/18/2025 10:30:00 AM, [address], [place], [address], Provider Name:Paul Velez, 07/24/2025 11:00:00 AM, [address], [place], [address], Provider Name:Arlene Melgar, 0 07/24/2025 11:00:00 AM, [address], [place], [address], Provider Name:Arlene Melgar, 0 08/01/2025 10:30:00 AM, [address], [place], [address], Provider Name:Arlene Melgar, 0 08/01/2025 10:30:00 AM, [address], [place], [address], Progress Notes * Lory CHAUpricillaDOB:[birth year] (84 yo F)Acc No.[id number]:03/14/2025 Patient:?Lory CHAUricia :?MIGDALIA GARZAOB:1940???Age:84 Y ???Sex:FemaleDate:03/14/2025Phone:[phone]:[address] [place] [id number]:No PCP None Subjective: * Chief Complaints: * 1 . Bladder Consult. 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
--- OUTSIDE RECORDS SUMMARY | 2025-05-08 07:45 | XMS_ITS ---
Author Organization [facility] Address [address] [place] [address] Care Team Providers Care Gis Physical Scientist Name Role Phone None, No PCP Primary Care Provider Unavailnoah e Heber Estevez Unavailable [phone] Heber Estevez Unavailable Unavailable Paul Velez Unavailable [phone] Encounters Encounter Location Date Provider Diagnosis [facility] [address] [place] [address] 05/08/2025 Paul Velez Plan Of Treatment Next Appt Details Provider Name:Arlene Melgar, 0 05/30/2025 11:00:00 AM, [address] [place], [address], Provider Name:Arlene Melgar, 0 05/30/2025 11:00:00 AM, [address] [place], [address], Provider Name:Arlene Melgar, 0 06/06/2025 10:45:00 AM, [address] [place], [address], Provider Name:Arlene Melgar, 0 06/06/2025 10:45:00 AM, [address] [place], [address], Provider Name:Arlene Melgar, 0 06/13/2025 10:30:00 AM, [address] [place], [address], Provider Name:Arlene Melgar, 0 06/13/2025 10:30:00 AM, [address], [place], [address], Provider Name:Arlene Ramón, 0 06/20/2025 01:00:00 PM, [address], [place], [address], Provider Name:Arlene Melgar, 0 06/20/2025 01:00:00 PM, [address], [place], [address], Provider Name:Paul Velez, 06/28/2025 11:15:00 AM, [address], [place], [address], Provider Name:Arlene Melgar, 0 06/28/2025 11:15:00 AM, [address], [place], [address], Provider Name:Paul Velez, 07/05/2025 10:30:00 AM, [address], [place], [address], Provider Name:Arlene Melgar, 0 07/05/2025 10:30:00 AM, [address], [place], [address], Provider Name:Arlene Melgar, 0 07/11/2025 11:00:00 AM, [address], [place], [address], Provider Name:Arlene Melgar, 0 07/11/2025 11:00:00 AM, [address], [place], [address], Provider Name:Arlene Melgar, 0 07/18/2025 10:30:00 AM, [address], [place], [address], Provider Name:Arlene Melgar, 0 07/18/2025 10:30:00 AM, [address], [place], [address], Provider Name:Paul Velez, 07/24/2025 11:00:00 AM, [address], [place], [address], Provider Name:Arlene Melgar, 0 07/24/2025 11:00:00 AM, [address], [place], [address], Provider Name:Arlene Melgar, 0 08/01/2025 10:30:00 AM, [address], [place], [address], Provider Name:Arlene Melgar, 0 08/01/2025 10:30:00 AM, [address], [place], [address], Progress Notes * Dolly CHAUDOB:[birth year] (84 yo F)Acc No.[id number]:05/08/2025 Patient:?Dolly CHAU :?Paul Velez SLADEDOB:1940???Age:84 Y ???Sex:FemaleDate:05/08/2025Phone:[phone]:[address] [place] [id number]:No PCP None Subjective: * Chief Complaints: * * Medical History: Objective: * Vitals: Therapeutic Interventions: Assessment: Plan: * Treatment: * Images: Billing Information: * Visit Code: * Procedure Codes: * Electronic signature of Paul Velez on 05/12/2025 at 08:04 AM CSTSign off status: Pending * Provider: SLADE Huston Date: 07/09/2024 Generated for Printing/Faxing/eTransmitting on:?05/12/2025 08:04 AM MARKET SURVEY REPRESENTATIVE
--- OUTSIDE RECORDS SUMMARY | 2025-05-08 07:45 | XMS_ITS ---
Author Organization [facility] Address [address] [place] [address] Care Team Providers Care Openstack Cloud Consulting Architect Name Role Phone None, No PCP Primary Care Provider Unavailnoah e Heber Estevez Unavailable [phone] Heber Estevez Unavailable Unavailable Paul Velez Unavailable [phone] Encounters Encounter Location Date Provider Diagnosis [facility] [address] [place] [address] 05/08/2025 Paul Velez Plan Of Treatment Next Appt Details Provider Name:Arlene Melgar, 0 05/30/2025 11:00:00 AM, [address] [place], [address], Provider Name:Arlene Melgar, 0 05/30/2025 11:00:00 AM, [address] [place], [address], Provider Name:Arlene Melgar, 0 06/06/2025 10:45:00 AM, [address] [place], [address], Provider Name:Arlene Melgar, 0 06/06/2025 10:45:00 AM, [address] [place], [address], Provider Name:Arlene Melgar, 0 06/13/2025 10:30:00 AM, [address] [place], [address], Provider Name:Arlene Melgar, 0 06/13/2025 10:30:00 AM, [address], [place], [address], Provider Name:Arlene Ramón, 0 06/20/2025 01:00:00 PM, [address], [place], [address], Provider Name:Arlene Melgar, 0 06/20/2025 01:00:00 PM, [address], [place], [address], Provider Name:Paul Velez, 06/28/2025 11:15:00 AM, [address], [place], [address], Provider Name:Arlene Melgar, 0 06/28/2025 11:15:00 AM, [address], [place], [address], Provider Name:Paul Velez, 07/05/2025 10:30:00 AM, [address], [place], [address], Provider Name:Arlene Melgar, 0 07/05/2025 10:30:00 AM, [address], [place], [address], Provider Name:Arlene Melgar, 0 07/11/2025 11:00:00 AM, [address], [place], [address], Provider Name:Arlene Melgar, 0 07/11/2025 11:00:00 AM, [address], [place], [address], Provider Name:Arlene Melgar, 0 07/18/2025 10:30:00 AM, [address], [place], [address], Provider Name:Arlene Melgar, 0 07/18/2025 10:30:00 AM, [address], [place], [address], Provider Name:Paul Velez, 07/24/2025 11:00:00 AM, [address], [place], [address], Provider Name:Arlene Melgar, 0 07/24/2025 11:00:00 AM, [address], [place], [address], Provider Name:Arlene Melgar, 0 08/01/2025 10:30:00 AM, [address], [place], [address], Provider Name:Arlene Melgar, 0 08/01/2025 10:30:00 AM, [address], [place], [address], Progress Notes * Dolly CHAUDOB:[birth year] (84 yo F)Acc No.[id number]:05/08/2025 Patient:?Dolly HCAU :?Paul Velez SLADEDOB:1940???Age:84 Y ???Sex:FemaleDate:05/08/2025Phone:[phone]:[address] [place] [address]Pcp:No PCP None Subjective: * Chief Complaints: * * Medical History: Objective: * Vitals: Therapeutic Interventions: Assessment: Plan: * Treatment: * Images: Billing Information: * Visit Code: * Procedure Codes: * Electronic signature of Paul Velez on 05/12/2025 at 08:04 AM CSTSign off status: Pending * Provider: SLADE Huston Date: 07/09/2024 Generated for Printing/Faxing/eTransmitting on:?05/12/2025 08:04 AM LICENSED ACUPUNCTURIST
--- OUTSIDE RECORDS SUMMARY | 2025-05-09 10:30 | XMS_ITS ---
Author Organization [facility] Address [address] [place] [address] Care Team Providers Care Railroad Maintenance Clerk Name Role Phone None, No PCP Primary Care Provider Unavailabl e Bernabe Ventura Unavailable [phone] Bernabe Ventura Unavailable Unavailable Encounters Encounter Location Date Provider Diagnosis [facility] [address] [place] [address] 05/09/2025 Bernabe Ventura Plan Of Treatment Next Appt Details Provider Name:Arlene Melgar, 0 05/30/2025 11:00:00 AM, [address] [place], [address], Provider Name:Arlene Melgar, 0 05/30/2025 11:00:00 AM, [address] [place], [address], Provider Name:Arlene Melgar, 0 06/06/2025 10:45:00 AM, [address] [place], [address], Provider Name:Arlene Melgar, 0 06/06/2025 10:45:00 AM, [address] [place], [address], Provider Name:Arlene Melgar, 0 06/13/2025 10:30:00 AM, [address] [place], [address], Provider Name:Arlene Melgar, 0 06/13/2025 10:30:00 AM, [address] [place], [address], Provider Name:Arlene Melgar, 0 06/20/2025 01:00:00 PM, [address], [place], [address], Provider Name:Arlene Melgar, 0 06/20/2025 01:00:00 PM, [address], [place], [address], Provider Name:Paul Velez, 06/28/2025 11:15:00 AM, [address], [place], [address], Provider Name:Arlene Melgar, 0 06/28/2025 11:15:00 AM, [address], [place], [address], Provider Name:Paul Velez, 07/05/2025 10:30:00 AM, [address], [place], [address], Provider Name:Arlene Melgar, 0 07/05/2025 10:30:00 AM, [address], [place], [address], Provider Name:Arlene Melgar, 0 07/11/2025 11:00:00 AM, [address], [place], [address], Provider Name:Arlene Melgar, 0 07/11/2025 11:00:00 AM, [address], [place], [address], Provider Name:Arlene Melgar, 0 07/18/2025 10:30:00 AM, [address], [place], [address], Provider Name:Arlene Melgar, 0 07/18/2025 10:30:00 AM, [address], [place], [address], Provider Name:Paul Velez, 07/24/2025 11:00:00 AM, [address], [place], [address], Provider Name:Arlene Melgar, 0 07/24/2025 11:00:00 AM, [address], [place], [address], Provider Name:Arlene Melgar, 0 08/01/2025 10:30:00 AM, [address], [place], [address], Provider Name:Arlene Melgar, 0 08/01/2025 10:30:00 AM, [address], [place], [address], Progress Notes * Dolly CHAUDOB:[birth year] (84 yo F)Acc No.[id number]:05/09/2025 Patient:?Dolly CHAU :?BERNABE VENTURA MDDOB:1940???Age:84 Y ???Sex:FemaleDate:05/09/2025Phone:[phone]:[address] [place], [place] [id number]:No PCP None Subjective: * Chief Complaints: * * Medical History: Objective: * Vitals: Assessment: Plan: * Treatment: * Images: Billing Information: * Visit Code: * Procedure Codes: * Electronic signature of Bernabe Ventura MD on 05/12/2025 at 08:03 AM CSTSign off status: Pending * Provider: Wayne VENTURA MD Date: 07/10/2024 Generated for Printing/Faxing/eTransmitting on:?05/12/2025 08:03 AM TALENT 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
--- OUTSIDE RECORDS SUMMARY | 2025-05-12 08:03 | XMS_ITS | Continuity of Care Document ---
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 Plan of Treatment Reminders Order DateSubmit DateProviderLast Modified ByOrganization DetailsLast Modified TimeDetailsAppointmentsNone recorded.Laburinalysis, accclvwr88 mercedUa[facility], [address], [place], [address], 26/02/2025 14:22:45ReferralNone recorded.ProceduresNone recorded. SurgeriesNone recorded.ImagingNone recorded.Medication OrdersNone recorded. Patient TargetsNo targets recorded. Patient Instructions Encounter Date Encounter Id Patient Instructions Last Modified By Organization Details Last Modified Time 04/02/2025 [id number] doing better after treatment for vaginitis. will have her follow up with Dr Sharif in the spring with NEY blackwood Not available 04/02/2025 14:29:40 Reason for Referral None Reported. Results Created Date Observation Date Name Description Value Unit Range Abnormal Flag Note LastModifiedBy Organization Detail LastModifiedTime 04/02/2025 04/02/2025 urinalysis, dipstick BLOOD Trace ( 5 RBC/uL) Not Available[facility] [address], [place], [address], 09/ 16:50:5811/urinalysis, dipstickBILIRUBINNegativeNot Available [facility] [address], [place], [address], Ph [phone] 16:50:5811/urinalysis, dipstickUROBILINOGEN0.2 mg/dL (Norm)Not AvailableUa[facility] [address], [place], [address], Ph [phone] 16:50:5811//urinalysis, dipstickKETONESNegativeNot Available [facility] [address], [place], [address], Ph [phone] 16:50:5811//urinalysis, dipstickPROTEINNegativeNot Available [facility] [address], [place], [address], Ph [phone] 16:50:5811urinalysis, dipstickNITRITESNegativeNot Available [facility] [address], [place], [address], Ph [phone] 16:50:5811urinalysis, dipstickGLUCOSENegativeNot Available [facility] [address], [place], [address], Ph [phone] 16:50:5811urinalysis, dipstickp.H.5.5Not AvailableU[facility] [address], [place], [address], Ph [phone] 16:50:5811/urinalysis, dipstickS.G. (Specific [place])1.025Not AvailableUa_[facility] [address], [place], [address], 19/ 16:50:5811/urinalysis, dipstickLEUKOCYTESNegativeNot Available [facility] [address], [place], [address], 43/ 16:50:58 Result Notes None recorded. Problems Name Problem SNOMED Code Status Onset Date Resolution Date Notes Provider Name and Address Organization Details Recorded Time Kidney stone 87456607 Active 04/11/2007 Yarelis Prim krys, [facility] Elbphom4112/03/2023 15:17:51Irritable bowel vocmgdjg38686871Zcdvnn 04/11/2007Yarelis Prim krys, [facility] Ckgpmqc7812/03/2023 15:17:51Disorder of skeletal vjaqpd56840111 Gcnrpd2808/06/2007[facility] Hetrxti2812/03/2023 15:17:51Hypertensive hsmqjvqj93928985Swnlyu 04/01/[address] [facility] Oyxklmz5212/03/2023 15:17:51History of polyp of juxws363338930 Dqjwtw9309/09/2011Yarelis Prim [facility] Dvoyjac4812/03/2023 15:17: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 507393846Vpaqey55/26/2014Yarelis marcano [facility] Ngilqrl2412/03/2023 15:17:51Patient encounter [id number] 01/16/2014[facility] Dadwotb4812/03/2023 15:17:52Gxregdljzwbv09975739Vpuxen56/29/2017 Yarelis Prim krys, [facility] Hvutkzk2412/03/2023 15:17:51Right sided abdominal bsls082207410 Sjlpfn0401/02/2018[facility] Yizoqiv5612/03/2023 15:17:51Protein level - elguoph164877343Hjizba 01/02/2018Yarelis Prim null, [facility] Diesahz3912/03/2023 15:17:41Qeaortafwqvf229981428Xstkdm84/12/2018 Yarelis Prim null [facility] Nxfgofo0212/03/2023 15:17:51Diverticulum of large intestine without nwyirqvejr242451365Kkvexx05/12/2018[facility], [facility]12/03/2023 15:17:51Mass of right adrenal gland 57300909653604527Csqsjg78/16/2018[facility] 15:17:51History of cerebrovascular accident 903467957Fritkr57/06/2019[facility]12/03/2023 15:17:51Ureteric zbiyt35960001Fqsvqb87/15/2019 N20.1 : Calculus of ureterNot QbtxnvljhEgosmdMoosst34/18/2020 02:06:08 Polycythemia vera (clinical)267628800Byuaey56/16/2020[facility], [facility]12/03/2023 15:17:51Acute gastric ulcer without hemorrhage AND without azmvmysegfk77965454Pqfzae51/01/2020[facility], [facility]12/03/2023 15:17:77Cjrthsblugbrch4419573Rzyylp89/11/2020 [facility]12/03/2023 15:17:51Recurrent urinary tract infection 492035191Kwazaw82/09/2024Tomaribell Maddox MD [address] [place] [address], [address], [facility]07/02/2023 15:33:10Frank djaqfekls020853195Rtcvrh 07/02/2023Tomaribell Maddox MD [address] [place] [address], [address], [facility]07/02/2023 15:34:50Pxmrepf77642819Rshlpl02/31/2024Tomaribell Maddox MD [address] [place] [address], [address], [facility]10/22/2023 12:34:25Increased frequency of urination 387311925Vxnift83/31/2024Tomaribell Maddox MD [address] [place] [address],[address] [address], [facility]10/22/2023 12:34:26 Problem Notes None recorded. Procedures Surgical History Date Name Laterality Status Provider Name and Address Organization Details Recorded Time 01/08/2025 Bladder Scan Adan Maddox MD [address] [place] [address],[address], [address] [place] [address], [facility]01/08/2025 14:48:46045Bladder ScancompletedDezera [facility]08/28/2024 14:31:04104Bladder Scancompleted Feliz Maddox MD [address] [place] [address],[place] [address], [place] [address] 15:44:07084ColonoscopycompletedDezSonya [place] [address]6/02/2024 14:21:ladder Scancompleted Yarelis PrimMN [facility]12/03/2023 15:23:1704Bladder Scan Adan Maddox MD [address] [place] [address],[place] [address], [facility]10/22/2023 12:26:3401total replacement of hip Adan Maddox MD [address] [place] [address], [address] [place] [address], [facility]10/22/2023 12:17:10005/24/2019colonoscopycompletedFeliz Maddox MD [address] [place] [address], [facility]06/05/2024 11:45:34reconstruction of pelvic floorcompleted Feliz Maddox MD [address] [place] [address],[place] [address], [facility]09/15/2021 15:47:54 Imaging Results None recorded. Procedure Notes None recorded. Medical Equipment None Reported. Allergies Allergen ID Allergen Name Allergen Category Reaction Reaction Severity Criticality Documentation Date Start Date Code Code System Note Provider Name and Address Organization Details Recorded Time 851741 Fosamax medication abdominal pain Not available Not [id number] Fleming, MD [address], [address], [facility] Kuxrema32/01/2021 15:05:15526570pphonsumpxr sodiummedicationother Not available high03/03/20230525/04/20088684939323IiSdwtAPJELS FLOOR PAINDezera Riddhi [facility]canoSt[facility] Eyokico5608/28/2024 14:29:84063141afjclzwuhw acidNot availableother Not available high0013030484TrQqnpIrilsy floor dysfunction PELVIC FLOOR PAIN Dezerwagner marcanoSt. [facility] Htaohqi9508/28/2024 14:29:47311771juxih bee venomenvironment angioedema Not available [facility]/[id number] done fine with bees in the past. Could have been a hornet. unrecognized reaction (text: Throat Swelling/Closing, code: [id number]) (from external source)Feliz Maddox MD [address] [place] [address], [address], [facility] Yvsbsub1501/08/2025 14:42:17 Medications Name Sig Start Date Stop Date Status Note LastModified by Organization Details LastModified Time Prescription - Prior Authori zation Request 4completedPA ApprovalNot AvailableNot AvailableNot Availableamoxicillin 500 mg capsuleTK FOUR CS PO 1 HOUR B DAPPactiveNot AvailableNot AvailableNot Availabledesonide 0.05 % topical creamAPPLY TO EYELIDS TWICE DAILY FOR 1-2 WEEKS. MIX 11 WITH KETOCONAZOLE CREAM AND APPLY TO AFFECTED AREAS AROUND MOUTH TWICE DAILY FOR 1-2 WEE4completedNot AvailableNot AvailableNot Availablehydroxyurea 500 mg capsuleTAKE 1 CAPSULE BY MOUTH TWICE DAILYactiveNot AvailableNot AvailableNot Availableprednisone 10 mg tabletTAKE 2 TABLETS BY MOUTH EVERY DAY4completedNot AvailableNot AvailableNot Available cefuroxime axetil 250 mg kbvqwv934completedNot AvailableNot AvailableNot Availableketoconazole 2 % shampooWASH SCALP 1-2X WEEKLY. LATHER AND LET SIT FOR 3-5 MINUTES BEFORE RINSING.activeNot AvailableNot AvailableNot Available cefpodoxime 200 mg iwybio064completedNot AvailableNot AvailableNot Availableoxybutynin chloride ER 10 mg tablet,extended release 24 hrTake 1 tablet every day by oral route for 30 days./ompletedNot Available Not AvailableNot Availablefosfomycin tromethamine 3 gram oral packetMIX AND DRINK 1 PACKET BY MOUTH FOR 1 DAY4completedNot AvailableNot Available Not Availablefluconazole 150 mg tabletTAKE 1 TABLET BY MOUTH 1 TIME FOR 1 DOSE 02/21/2021ompletedNot AvailableNot AvailableNot Availablehydrocodone 5 mg- acetaminophen 325 mg tabletTAKE 1-2 TABLETS BY MOUTH EVERY 4-6 HOURS NEEDED 07/02/2023ompletedNot AvailableNot AvailableNot Availableprednisone 20 mg tabletTAKE 1 TABLET BY MOUTH EVERY DAY4completedNot AvailableNot AvailableNot Availableprednisone 5 mg jrrqfx4007/02/2023ompletedNot AvailableNot AvailableNot Availablelidocaine-prilocaine 2.5 %-2.5 % topical kit12/14/2019 4completedNot AvailableNot AvailableNot AvailableRemicade 100 mg intravenous solutionInject by intravenous route.activeNot AvailableNot Available Not Availablemeclizine 12.5 mg tabletTAKE 1 TABLET BY MOUTH 3-4 TIMES PER DAY NEEDED. MAY USE 1-2 TABLETS NEEDED EVERY 6-8 HOURS FOR ZKFPFWWKF52/09/2024 completedNot AvailableNot AvailableNot Availablemetronidazole 500 mg tabletTAKE 1 TABLET BY MOUTH THREE TIMES DAILY4completedNot AvailableNot Available Not Availableclopidogrel 75 mg tabletTAKE 1 TABLET BY MOUTH EVERY DAYactiveNot AvailableNot AvailableNot Availableciprofloxacin 250 mg tabletTAKE 1 TABLET BY MOUTH DAILY4completedNot AvailableNot AvailableNot Available ciprofloxacin 500 mg tabletTAKE 1 TABLET BY MOUTH TWICE DAILY FOR 7 DAYS 4completedNot AvailableNot AvailableNot Availablesulfamethoxazole 800 mg-trimethoprim 160 mg tabletTake 1 tablet twice a day by oral route for 10 days.4completedNot AvailableNot AvailableNot Availableaspirin 81 mg tablet,delayed iztdcnd47 mg by oral route.03/21/2020activeNot AvailableNot AvailableNot Availableacetaminophen 500 mg tabletTake 1000 mg by oral route. 4completedNot AvailableNot AvailableNot Available triamcinolone acetonide 0.1 % topical creamAPPLY TWICE DAILY TO ECZEMA UP TO 2 WEEKS THEN TAKE A 2 WEEK BREAK. REPEAT NEEDED.activeNot AvailableNot AvailableNot Availableoxycodone-acetaminophen 5 mg-325 mg qccqyy3710/22/2023 completedNot AvailableNot AvailableNot Availablehydrocortisone 2.5 % topical cream with perineal applicatorAPPLY TOPICALLY TO HEMORRHOIDS TWICE DAILY NEEDED FOR GDQSQEUNXM93/09/2024ompletedNot AvailableNot AvailableNot Available prednisolone acetate 1 % eye drops,suspensionSHAKE LIQUID AND INSTILL 1 DROP IN LEFT EYE FOUR TIMES DAILY FOR 1 WEEK THEN STOPactiveNot AvailableNot Available Not Availabletamsulosin 0.4 mg capsuleTAKE 1 CAPSULE BY MOUTH EVERY DAY IN THE EVENINGactiveNot AvailableNot AvailableNot Availableprednisone 2.5 mg tabletTAKE 2 TABLETS BY MOUTH EVERY DAY FOR 2 WEEKS THEN TAKE 1 TABLET BY MOUTH EVERY DAY FOR 2 WEEKS THEN STOP4completedNot AvailableNot AvailableNot Available cephalexin 500 mg capsuleTAKE 1 CAPSULE BY MOUTH EVERY 6 HOURS FOR 7 DAYS 4completedNot AvailableNot AvailableNot Availablesimvastatin 20 mg tabletTAKE 1 TABLET BY MOUTH EVERY DAY IN THE EVENINGactiveNot AvailableNot AvailableNot Availablenystatin 100,000 unit/gram topical creamAPPLY TOPICALLY TO THE AFFECTED AREA TWICE DAILY4completedNot AvailableNot AvailableNot Availableclotrimazole-betamethasone 1 %-0.05 % topical creamAPPLY TOPICALLY TO VULVA TWICE DAILYactiveNot AvailableNot AvailableNot Availablemetronidazole 0.75 % topical creamAPPLY A THIN LAYER ON FACE 1-2X DAILY, ONGOING.activeNot AvailableNot AvailableNot Availablehydrochlorothiazide 12.5 mg capsuleTAKE 1 CAPSULE BY MOUTH EVERY DAY4completedNot AvailableNot AvailableNot Availabledocusate sodium 100 mg capsuleTAKE 1 CAPSULE BY MOUTH TWICE DAILY NEEDED FOR LMBTUNUSWCLU76/31/2024completedNot AvailableNot AvailableNot Availableomeprazole 20 mg capsule,delayed releaseTAKE 1 CAPSULE BY MOUTH EVERY DAY BEFORE A MEALactiveNot AvailableNot AvailableNot Availablecephalexin 500 mg tabletTAKE 1 TABLET BY MOUTH EVERY 6 HOURS FOR 7 DAYS4completedNot AvailableNot AvailableNot Availablemupirocin 2 % topical ointmentAPPLY TOPICALLY TO VULVA TWICE DAILYactiveNot AvailableNot AvailableNot Availableibuprofen 600 mg xeerbb7507/02/2023ompletedNot AvailableNot AvailableNot Availableestradiol 0.01% (0.1 mg/gram) vaginal creamUSE DIRECTED VAGINALLY TWICE WEEKLYactiveNot AvailableNot AvailableNot Availablemethylprednisolone 4 mg tablets in a dose packFOLLOW PACKAGE QGVYPEXAKH71/09/2024ompletedNot AvailableNot AvailableNot Availableipratropium bromide 42 mcg (0.06 %) nasal sprayINHALE 2 SPRAYS INTO THE AFFECTED NOSTRILS THREE TIMES DAILY IF NEEDED FOR RHINITISactiveNot AvailableNot AvailableNot Availableketoconazole 2 % topical creamAPPLY TWICE DAILY TO AFFECTED AREAS ON FACE TWICE DAILY, ONGOING UNTIL RESOLVED.activeNot Available Not AvailableNot Availableclobetasol 0.05 % scalp solutionAPPLY TO ITCHY AREAS ON SCALP 1-2X DAILY FOR UP TO TWO WEEKS AT A TIME. REPEAT NEEDED.08/28/2024 completedNot AvailableNot AvailableNot Availableondansetron 4 mg disintegrating tabletDISSOLVE 1 TABLET ON THE TONGUE EVERY 4 TO 6 HOURS NEEDED FOR NAUSEA OR VHFCTNJT745completedNot AvailableNot AvailableNot Available amoxicillin 875 mg-potassium clavulanate 125 mg gmyidy4707/02/2023ompletedNot AvailableNot AvailableNot Availableoxycodone 5 mg tabletTAKE ONE-HALF TO 1 TABLET BY MOUTH EVERY 4-8 HOURS NEEDED FOR PAIN4completedNot AvailableNot AvailableNot Availableneomycin 3.5 mg/g-polymyxin B 10,000 unit/g- dexameth 0.1 % eye oint07/02/2023ompletedNot AvailableNot AvailableNot Availablecholecalciferol (vitamin D3) 25 mcg (1,000 unit) cswbroz1377 units by oral route.10/20/2019activeNot AvailableNot AvailableNot AvailablePremarin 0.625 mg/gram vaginal creamAPPLY A SMALL AMOUNT OF CREAM 1/2 INCH RIBBON OVER THE URETHRA AND OUTER VAGINAL AREA AT BEDTIMEactiveNot AvailableNot AvailableNot Availablenitrofurantoin monohydrate/macrocrystals 100 mg remifgx1607/02/2023 completedNot AvailableNot AvailableNot Availablesolifenacin 5 mg tabletTAKE 1 TABLET BY MOUTH EVERY DAY4completedNot AvailableNot AvailableNot Availablemesalamine 1,000 mg rectal suppositoryUNWRAP AND INSERT 1 SUPPOSITORY RECTALLY EVERY DAY AT QMEJJHZ79/11/2024completedNot AvailableNot AvailableNot Availablemesalamine 1.2 gram tablet,delayed releaseTAKE 4 TABLETS BY MOUTH EVERY DAY WITH A MEAL4completedNot AvailableNot AvailableNot Available hydrochlorothiazide 12.5 mg tabletactiveNot AvailableNot AvailableNot Available mesalamine rectal susp enema with cleansing wipes 4 gram/60 mL kitINSERT 60ML RECTALLY EVERY DAY AT SAFVYCN2707/02/2023ompletedNot AvailableNot AvailableNot AvailableLinzess 72 mcg capsuleTAKE 1 CAPSULE BY MOUTH EVERY DAY 30 MINUTES BEFORE FIRST MEAL OF THE DAY ON AN EMPTY STOMACHactiveNot AvailableNot Available Not AvailableGemtesa 75 mg tabletTake 1 tablet every day by oral route. 5activeNot AvailableNot AvailableNot AvailableGemtesaactiveNot AvailableNot AvailableNot Available Vitals Date Recorded Body height Body mass index (BMI) Body weight Provider Name and Address Organization Details Last Updated DateTime 04/02/2025 154.94 cm 32.1 kg/m2 77855.7 g Seawagner Riddhi [facility] 04/02/2025 14:15:05 Social History Question Answer Notes LastModified by Organization D etails LastModified Time Tobacco Smoking Status Never Smoker Feliz Maddox MD [address] [place] [address],[address], [place], [address], [facility] Veiwjrk96/01/2021 15:09:21What Is Your Level Of Caffeine Consumption?Hgxflwdywvpo41Jgpdfhqkhsi not qjlapxqft70/01/2021What Was The Date Of Your Most Recent Tobacco Screening?04/02/2025doreilleyInformation not haarjjaqt93/10/2025What Is Your Relationship Status?Nvdcuhhcxqkrpux41Ujwnnzcoyut not fbjnucrrm05/01/2021Has Tobacco Cessation Counseling Been Provided?No kunutmbv27Zfjbqzbdhgg not ayccmznou70/18/2025 Sex: Unknown Functional Status Question Answer Note LastModified by Organization D etails LastModified Time Do you use any illicit or recreational drugs? No bjrkoato00Otfhaqrkamn not jieqgykaa27/01/2021o you or have you ever used any other forms of tobacco or nicotine?Juqdnuexrv56Byykjbcvwxr not available 02/21/2021What is your level of alcohol consumption?Jwjbpkylchvs59Vushwxlpvtx not seplsooia57/01/2021re you currently employed?Gtugeghskr77Xvlpyrahecw not bxxohjpnl10/01/2021 Mental Status None recorded. Family History Relationship Description Onset Age of this Age Resolved Age Notes LastModified by Organization Details LastModified Time Father Family history of malignant neop lasm of prostate abjjwubw48Qrg nywzwnduk28/01/2021 15:07:44 Notes:Mother had a stroke Medical History Condition Response Diabetes N Sexually Transmitted Infection N Other N Bleeding Disorder N High Blood Pressure Y Kidney Stones Y High Cholesterol Y GERD/Acid Reflux N Heart Disease Y Cancer Y Lung Disease N Depression N Gynecological History Statement/Question Response Sexually Active? N Obstetrics History GPAL:G 3 P 0 0 0 0 Immunizations Vaccine Type Date Status Note Provider Nam e and Address Organization Details Recorded Time Influenza, adjuvanted, trivalent, PF 02/22/2018 comp leted Malia Mccollumf null, [facility]07/15/2023 11:50:52Influenza, adjuvanted, trivalent, PF 03/17/2017completedDebra Brien null, [facility] Pkfkhaq5807/15/2023 11:50:52Influenza, recombinant, quadrivalent, PF03/25/2019completedDebra Baker null, [facility] Zwsurzc9207/15/2023 11:50:52Influenza, adjuvanted, quadrivalent, PF 02/14/2020completedDebra Brien null, [facility]/15/[facility] 11:50:52COVID-19, mRNA, LNP-S, PF, 30 mcg/0.3 mL dose07/06/2020ompletedDebra Baker null, [facility] Sosghpb0707/15/2023 11:50:52COVID-19, mRNA, LNP-S, PF, 30 mcg/0.3 mL dose07/27/2020ompletedDebra Baker null, [facility]01/05/2025 10:22:46pneumococcal polysaccharide PPV23 08/30/2007completDebbielucius Gilberty null, [facility]08/28/2024 14:28:70Pxrs0010/02/2011completedDebra Brien null, [facility]01/05/2025 10:22:46Pneumococcal conjugate PCV 13002/18/2015 completedDebra Brien null, [facility]01/05/2025 10:22:46zoster live04/11/2007completDebbielucius Gilberty null, [facility]08/28/2024 14:28:53Influenza, high-dose, trivalent, PF 02/17/2016completedDebra Baker null, [facility]07/15/2023 11:50:52Influenza, split virus, trivalent, iiqaodzfnfbf66/04/2010completedDebra Baker null, [facility]01/05/2025 10:22:46Influenza, split virus, trivalent, nbpqtuismzvj33/06/2014completedDebra Baker null, [facility]01/05/2025 10:22:46Influenza, split virus, trivalent, dmnbwlokpakk99/07/2009[facility], [facility]08/28/2024 14:28:53Influenza, split virus, trivalent, xxcdcvzlxaox57/11/2012completedDebra Baker null, [facility]01/05/2025 10:22:46Influenza, split virus, trivalent, thnahjnfczrv84/27/2008completDebbielucius Gilberty null, [facility] Omzpryc2308/28/2024 14:28:53Influenza, split virus, trivalent, gxfdwmgnegau41/01/2007completedDebra Brien null, [facility]07/15/2023 11:50:53Influenza, split virus, trivalent, wufktbwtqdxw48/11/2006completedDebra Brien null, [facility]07/15/2023 11:50:53Influenza, split virus, trivalent, oiyilrkvamhy96/30/2011completedDebra Baker null, [facility]01/05/2025 10:22:46Novel gbnxogegt-Y1F9-9703/18/2009 completedDebra Brien null, [facility]01/05/2025 10:22:46Td (adult), 5 Lf tetanus toxoid, preservative free, ousmjega89/10/2020completedDebra Baker null, [facility]01/05/2025 10:22:46Td (adult), 2 Lf tetanus toxoid, preservative free, erupijcm61/01/2002completedDebra Brien null, [facility]07/15/2023 11:50:53Influenza, split virus, quadrivalent, PF02/18/2015completedDebra Brien null, [facility]01/05/2025 10:22:46Influenza, adjuvanted, quadrivalent, PF 1completedNot UaejwedabJwgjykHinrzz13/10/2025 14:01:20COVID-19, mRNA, LNP-S, PF, 30 mcg/0.3 mL dose1completedNot AvailableAthChildren's [facility] 04/02/2025 14:01:20Influenza, split virus, quadrivalent, PF05/10/2009completed Not PygnpxjfmUpjpcyRspvxv43/10/2025 14:01:20COVID-19, mRNA, LNP-S, PF, 30 mcg/0.3 mL dose, jasmyn-dayhssw90/18/2022completedNot AvailableAthChildren[facility] 04/02/2025 14:01:20COVID-19, mRNA, LNP-S, bivalent, PF, 50 mcg/0.5 mL or 25mcg/0.25 mL dose2completedNot EibxfpxzqAnlylrIjivbf74/10/2025 14:01:20Influenza, adjuvanted, quadrivalent, PF2completedNot Available JzufxbDgfxqo45/10/2025 14:01:20COVID-19, mRNA, LNP-S, PF, 50 mcg/0.5 mL 03/02/2023ompletedNot NfzkumknhPcuywiMksohv30/10/2025 14:01:20Influenza, high- dose, quadrivalent, PF03/14/2023ompletedNot LalghyccaTxhckgMmuhez01/10/2025 14:01:20zoster kafwzexjqbn43/24/2024ompletedNot MgcgjikmqUqjpgaUpqkgj79/10/2025 14:01:20zoster jqtqgpuenqe08/07/2024completedNot UglcmqeekIsnifqAiptnu59/10/2025 14:01:20COVID-19, mRNA, LNP-S, PF, 50 mcg/0.5 mL02/09/2024ompletedNot Available YcemgeAbncxm14/10/2025 14:01:20Influenza, high-dose, trivalent, PF03/06/2024 completedNot QhcmsnfgxYcaagiRbmlqj41/10/2025 14:01:20RSV, bivalent, protein subunit RSVpreF, diluent reconstituted, 0.5 mL, PF03/29/2024ompletedNot WobssahnbDkdvigVnelya85/10/2025 14:01:20Novel Uugkcvifh-T1R6-90, all vggkpszjalhj55/18/2009completedDebra Baker null, [facility] Cbwixiu6501/05/2025 10:22:46Influenza, split virus, trivalent, PF 04/22/2011completedDebra Baker null, [facility] Bpbxozn2701/05/2025 10:22:46Influenza, adjuvanted, trivalent, PF 01/29/2025ompletedNot FiusovzqxAqwxxnEdfugn05/10/2025 14:01:20COVID-19, mRNA, LNP-S, PF, jasmyn-sucrose, 30 mcg/0.3 mL02/17/2025ompletedNot Available MftinqGidigd69/10/2025 14:01:20 Past Encounters Encounter ID Performer Location Encounter Start Date Encounter Closed Date Diagnosis/Indication Diagnosis SNOMED-CT Code Diagnosis ICD10 Code Diagnosis IMO Codes Diagnosis Note [id number] Feliz Maddox MD [facility] [address] [place] [address] 04/02/2025 13:56:38 04/03/2025 11:48:09 Dysuria 43145891 R30.0 Health Concerns Section Related Observation LastModified by Organization Detai ls LastModified Time None Recorded Concern Status LastModified by Organization Details LastModified Time None Recorded Payers Encounter Date Sequence Insurance Name Policy Number Policy Philip Covered Member ID Philip Member ID Guarantor Name 04/02/2025 1 MEDICA - DOS ON OR AFTER 2020 - MEDICA GOVERNMENT PROGRAMS - ADVANTAGE SOLUTION (MEDICARE REPLACEMENT/ ADVANTAGE - PPO) [id number] Dolly Chau [id number] Dolly Chau Notes Date Note Type Note Provider Name and Address Orga nization Details Recorded Time 04/02/2025 text/html been treated for vaginitis with bactroban and lotrisone, and estrogen cream and doing well, seeing pelvic floor therapy soon. TARAS Alanis - [place] Nrroubn65/10/2025 14:30:33 OBGyn Episode No OBEpisode recorded.
--- OUTSIDE RECORDS SUMMARY | 2025-05-12 08:04 | XMS_ITS | Patient Health Record ---
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 Role Phone None, No PCP Primary Care Provider UnavailHeber Mustafa Unavailable [phone] Heber Estevez Unavailable Unavailable Paul Velez Unavailable [phone] Allergies Allergen (clinical drug ingredient) Drug/Non Drug Allergy documented on EMR Reaction Allergy Type Onset Date Status Bee (uncoded)UnknownAllergyActivealendronateAlendronate SodiumUnknownDrug AllergyActivealendronateFosamaxUnknownDrug AllergyActive Results Component Value Reference Range Notes [facility], UTI w/ ABX Resistan ce (IH) Reviewed date:03/16/2025 04:12:06 PM Interpretation:Normal Performing Lab: Notes/Report: Acinetobacter baumannii Not Detected Not Detected Bacteroides fragilisNot DetectedNot Detectedbeta-lactamase (blaKPC) Resistance Not DetectedNot Detectedbeta-lactamase (CTX-M-Group 1) ResistanceNot DetectedNot DetectedCandida albicansNot DetectedNot DetectedCandida dubliniensisNot Detected Not DetectedCandida glabrataNot DetectedNot DetectedCandida kruseiNot Detected Not DetectedCandida parapsilosisNot DetectedNot DetectedCandida tropicalisNot DetectedNot DetectedCitrobacter braaki/freundiiNot DetectedNot Detected Citrobacter koseriNot DetectedNot DetectedEnterobacter cloacaeNot DetectedNot DetectedEnterococcus spp.Not DetectedNot DetectedEscherichia coliNot DetectedNot DetectedFluoroquinolones (qnr) ResistanceNot DetectedNot DetectedK. oxytoca/michiganensisNot DetectedNot DetectedKlebsiella aerogenesNot DetectedNot DetectedKlebsiella pneumoniaeNot DetectedNot Jbvbvxodeeefakb-jpqd-qkzvhoxiv (blaNDM) ResistanceNot DetectedNot DetectedMethicillin/Oxacillin (mecA) ResistanceNot DetectedNot DetectedMorganella morganiiNot DetectedNot Detected Mycoplasma genitaliumNot DetectedNot DetectedMycoplasma hominisNot DetectedNot DetectedPrevotella biviaNot DetectedNot DetectedProteus mirabilisNot DetectedNot DetectedPseudomonas aeruginosaNot DetectedNot DetectedSerratia marcescensNot DetectedNot DetectedStaphylococcus aureusNot DetectedNot DetectedStaphylococcus epidermidisNot DetectedNot DetectedStaphylococcus saprophyticusNot DetectedNot DetectedStreptococcus agalactiae (Group B)Not DetectedNot DetectedStreptococcus pyogenes (Group A)Not DetectedNot DetectedSulfonamides (Sul) ResistanceNot DetectedNot DetectedTrimethoprim (dfrA) ResistanceNot DetectedNot Detected Ureaplasma urealyticumNot DetectedNot DetectedVancomycin (Brittney, vanB) Resistance Not DetectedNot Detected Reason For Referral No Information Medications Medication SIG (Take, Route, Frequency, Duration) Notes Start Date End Date Status Vitamin D3 ActiveinFLIXimabActiveMiraLaxActiveMupirocin 2 %1 application Externally on vulva Twice a day; Duration: 10 days5ActiveVitamin CActiveClotrimazole- Betamethasone 1-0.05 %1 application Externally on vulva Twice a day; Duration: 10 days5ActiveClopidogrel BisulfateActiveTylenolActiveEstradiol 0.01 % as directed Vaginal twice a day; Duration: 90 days5ActiveTamsulosin HCl ActiveGemtesaActiveVitamin V08IscshfzbxvbDWPJEAlbfphqovEsroabLxtoixg 81Active FiberActiveCalcium CitrateActiveSimvastatinActiveHydroxyureaActive Social History Tobacco Use: Social History Observation Description Date Details (start date - stop date) Never Smoker NA - NA Tobacco Control (Standard) Question Answer Notes Tobacco use: Nonsmoker Problems Problem Type SNOMED Code ICD Code Onset Dates Problem Status W/U Status Risk Notes Problem Atrophy of vagina (035482656) Vaginal atr ophy (N95.2) Activeconfirmed Vital Signs Blood pressure diastolic 86 mm Hg 03/14/2025 marimar ght declined. Lmq, ccma Height 62 in 03/14/2025 weight declined . Lmq, ccma Blood pressure systolic 118 mm Hg 03/14/2025 weig ht declined. Lmq, ccma Encounters Encounter Location Date Provider Diagnosis [facility] [address] [id number] 03/15/2025 Heber Shedd Dysuria R30.0 [facility] [address] [place] [address] 03/14/2025 Heber Shedd Vaginal atrophy N95.2 ; PFD (pelvic floor dysfunction) M62.89 and Yeast infection B37.9 [facility] [address] [place] [address] 03/15/2025 [facility] [place] [address] [place] [address]/ [facility] [id number]/[facility] [address] [place] [address]/[facility] [place] [address]/23/2025 Heber SheddVaginal atrophy N95.2 and Yeast infection B37.9[facility] [place] [address] Ass[facility] Encounter Date Diagnosis (ICD Code) Assessment Notes Treatment Notes Treatment Clinical Notes Section Notes 03/15/2025 Vaginal atrophy (ICD-10 - N95.2) 03/15/2025Dysuria (ICD-10 - R30.0)03/14/2025Vaginal atrophy (ICD-10 - N95.2) 84 yo F presents with burning urethral pain for one year following lithotripsy for kidney stone removal in 2023, with symptoms worsening with urination, sitting, and pressure activities. 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 The atrophic changes are contributing to the patient's chronic urethral burning symptoms that began following lithotripsy procedure in 2023. Plan: - Estradiol cream twice weekly long-term for vaginal atrophy - Discontinue Premarin due to estrogen content and potential breast cancer risk She is agreeable to the above plan. All of her questions have been answered to her satisfaction. Vaginal yeast infection with inflammation: Physical examination identified yeast infection and vaginal irritation. The inflammation may be extending to the urethra, contributing to the burning sensation at the urethral opening that worsens with urination, sitting, and pressure activities. Plan: - Lotrisone cream (steroid and yeast medicine) twice daily for 10 days for infection and inflammation - Bactroban cream twice daily for 10 days for infection and inflammation - Send prescriptions to pharmacy She is agreeable to the above plan. All of her questions have been answered to her satisfaction. Pelvic floor muscle spasms: Pelvic floor muscles are spasming and contributing to the patient's pain. Physical therapy with stretching has provided some improvement, and the physical therapist noted irritation possibly related to the previous kidney stone procedure. Plan: - Urostym therapy weekly for 12 weeks using machine for muscle relaxation and myofascial release - Cancel regular physical therapy in favor of Urostym therapy She is agreeable to the above plan. All of her questions have been answered to her satisfaction. Time spen on patient care including review of previous records, preparation for visit, ordering medications, reviewing labs or imaging, documenting visit, discussion of care with patient, family members and other providers if indicated. Direct face to face time with patient including obtaining relevant history, physical exam and discussion was 45 MINUTES. All of the above done if done was necessary for the care of the patient. We discussed [facility] diagnosis, treatment plans and care options/. 03/14/2025PFD (pelvic floor dysfunction) (ICD-10 - M62.89)03/14/2025east infection (ICD-10 - B37.9)03/15/2025east infection (ICD-10 - B37.9)03/14/2025 Other Plan Of Treatment Next Appt Details Provider Name:Arlene Melgar, 0 05/30/2025 11:00:00 AM, [address] [place], [address], Provider Name:Arlene Melgar, 0 05/30/2025 11:00:00 AM, [address], [place], [address], Provider Name:Arlene Melgar, 0 06/06/2025 10:45:00 AM, [address], [place], [address], Provider Name:Arlene Melgar, 0 06/06/2025 10:45:00 AM, [address], [place], [address], Provider Name:Arlenebob Melgar, 0 06/13/2025 10:30:00 AM, [address], [place], [address], Provider Name:Arlene Melgar, 0 06/13/2025 10:30:00 AM, [address], [place], [address], Provider Name:Arlene Ramón, 0 06/20/2025 01:00:00 PM, [address], [place], [address], Provider Name:Arlenebob Melgar, 0 06/20/2025 01:00:00 PM, [address], [place], [address], Provider Name:Paul Velez, 06/28/2025 11:15:00 AM, [address], [place], [address], Provider Name:Arlene Melgar, 0 06/28/2025 11:15:00 AM, [address], [place], [address], Provider Name:Paul Velez, 07/05/2025 10:30:00 AM, [address], [place], [address], Provider Name:Arlenebob Melgar, 0 07/05/2025 10:30:00 AM, [address], [place], [address], Provider Name:Arlene Melgar, 0 07/11/2025 11:00:00 AM, [address] [place], [address], Provider Name:Arlene Ramón, 0 07/11/2025 11:00:00 AM, [address] [place], [address], Provider Name:Arlene Melgar, 0 07/18/2025 10:30:00 AM, [address], [place], [address], Provider Name:Arlene Melgar, 0 07/18/2025 10:30:00 AM, [address] [place], [address], Provider Name:Paul Agustin, 07/24/2025 11:00:00 AM, [facility] [place], [address], Provider Name:Arlene Melgar, 0 07/24/2025 11:00:00 AM, [address] [place], [address], Provider Name:Arlene Ramón, 0 08/01/2025 10:30:00 AM, [address] [place], [address], Provider Name:Arlene Melgar, 0 08/01/2025 10:30:00 AM, [address] [place], [address], Insurance Providers Payer Name Payer Address Payer Phone Subscriber Number Group Number Insured Name Patient Relationship to Insured Coverage Start Date Coverage End Date [employer] [address] (Ins. Bill) [address] [address] [place] [address] [id number], PatriciaSelf - patient is the insured Medical (General) History Medical History History ICD Code Polycythemia vera OsteoporosisBleeding problemsStrokeHigh CholesterolHeart Disease/AttackHigh Blood PressureChicken poxAsthma (as a child)ColitisSurgical History Surgery Date(Month/Year) Heel Spur Removal Total vaginal hysterectomy and BSOR Hip tzsaqseysjd9269jopfeu stones removed by ytyqwlwlrut2596Pvczxsnddeksscr History Reason Date(Month/Year) childbirth
--- OUTSIDE RECORDS SUMMARY | 2025-05-12 08:04 | XMS_ITS | Clinical Summary ---
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 Name Role Phone No Ref-Primary, Physician Primary Care Provider Allergies Active AllergyReactionsCriticalityNoted DateCommentsAlendronateOther (See Comments)10/23/2022 Pelvic floor dysfunction Medications MedicationSigDispense QuantityRefillsLast FilledStart DateEnd DateStatus clopidogrel (PLAVIX) 75 MG tablet Take 75 mg by mouth dailyActive hydrochlorothiazide (HYDRODIURIL) 12.5 MG tablet Take 12.5 mg by mouth dailyActive simvastatin (ZOCOR) 20 MG tablet Take 20 mg by mouth At BedtimeActive cyanocobalamin (VITAMIN B-12) 1000 MCG tablet Take 1,000 mcg by mouth dailyActive Ascorbic Acid (VITAMIN C) 500 MG CAPS Take 500 mg by mouth dailyActive aspirin (ASA) 81 MG chewable tablet Take 81 mg by mouth dailyActive vitamin D3 (CHOLECALCIFEROL) 50 mcg (2000 units) tablet Take 1 tablet by mouth dailyActive hydroxyurea (HYDREA) 500 MG capsule Take 500 mg by mouth 2 times dailyActive acetaminophen (TYLENOL) 500 MG tablet Take 500-1,000 mg by mouth every 6 hours as needed for mild painActive Family History Medical HistoryRelationCommentsColon CancerNo family hx of Social History Tobacco UseTypesPacks/DayYears UsedDateSmoking Tobacco: NeverSmokeless Tobacco: Never Tobacco Cessation:Counseling Given: Not Answered Alcohol UseStandard Drinks/WeekCommentsNot Currently0 (1 standard drink = 0.6 oz pure alcohol)Adolescent EducationAnswerDate RecordedGetting School Help Needed Not on file3CommentsUnknownSex and Gender InformationValueDate RecordedSex Assigned at BirthNot on fileLegal SarJzxaur94/04/2012 4:13 AM 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 Gender IdentityNot on fileSexual OrientationNot on file Last Filed Vital Signs Vital SignReadingTime TakenCommentsBlood Ydbdqjeh122/6706 2:50 PM CDT Khjne9668 2:50 PM RGFSchbkgwinll13.4 ??C (97.5 ??F)10/26/2022 12:43 PM CDTRespiratory Pbis5571 2:50 PM CDTOxygen Itswgkqkmj13%10/26/2022 2:50 PM CDTInhaled Oxygen Concentration--Arqdch52.3 kg (155 lb)10/26/2022 12:43 PM QFHZuvzwq715.9 cm (5' 1)10/26/2022 12:43 PM CDTBody Mass Index29.29010/26/2022 12:43 PM CDT Plan of Treatment Health MaintenanceDue DateLast DoneCommentsADVANCE CARE XGNOXLHZ13/18/1941NNUAL REVIEW OF HM [id number]/18/2821TCRZY35/18/1942FALL RISK ASSESSMENT 2006MEDICARE ANNUAL WELLNESS VISIT2006ZOSTER VACCINE (1 of 2) RSV VACCINE (1 - 1-dose 75+ series)2016PHQ-2 (once per calendar year)5COVID-19 VACCINE ( - season)2025 02/12/2022, 09/08/2021, 02/12/2021, Additional history existsINFLUENZA VACCINE (#1)510/07/2021, 02/05/2021, 02/14/2020, Additional history exists DTAP/TDAP/TD VACCINE (3 - Td or Tdap), 10/02/2011, 05/24/2001PNEUMOCOCCAL VACCINE 50+ RUVDWLjtlbcijz35/28/2015, 08/30/2007HPV VACCINE (No Doses Required)CompletedMENINGITIS VACCINEAged OutNo longer eligible based on patient's age to complete this topic Insurance * Guarantor: Vipul DOAN TypeRelation to PatientDate of BirthPhone Billing AddressPersonal/FamilySpouse [address] [place] [address] * Guarantor: Dolly Doan AAccount TypeRelation to PatientDate of BirthPhone Billing AddressPersonal/ZdmukeAacb09/18/1941 [address] [place] [address] [place] [address] Care Teams Team MemberRelationshipSpecialtyStart DateEnd Date No Ref-Primary, Physician PCP - [facility]10/23/22
--- OUTSIDE RECORDS SUMMARY | 2025-05-12 08:04 | XMS_ITS | CCD ---
Author Name Interface, [id number] lity Address [address] [place] [address] [address] [address] [facility] Address [address] 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 0123 POLYCYTHEMIA VERA - ALISE CORBYT, DO Medications Date Name Route Dose Frequency Instructions Start Date End Date Status Fill Status Indication 12/04/2019 Ascorbic Acid Oral PO 1.0 tablet daily wexbmiok36/13/2020Docusate Sodium OralPO1.0 capsulePRNfor constipationactive 12/04/2019Ferrous Sulfate OralPO1.0 rwbboskaisgmrmchg37/13/2020Tamsulosin OralPO 1.0 fgihxqpihrxrplztqh85/13/2020Hydrochlorothiazide OralPO1.0 capsuledailyactive 12/04/2019Vitamin E Zgmmedxjzp79/13/2020Clopidogrel OralPO1.0 tabletdailyactive 12/04/2019Hydroxyurea OralPO1.0 dcsijtxBTNvrmxyr71/13/2020Aspirin OralPO1.0 ghqcjimlsosviuyta32/13/2020Cholecalciferol OralPO1.0 capsuledailyactive 12/04/2019Simvastatin OralPO1.0 tabletdailyactive Problems Diagnosis Status Date of Diagnosis Resolution Date Polycythemia vera Active Social History Date Name Value 12/04/2019 Sex Female
--- OUTSIDE RECORDS SUMMARY | 2025-05-12 08:04 | XMS_ITS | Data Portability ---
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 Plan of Treatment Reminders Order DateSubmit DateProviderLast Modified ByOrganization DetailsLast Modified TimeDetailsAppointmentsNone recorded.[facility]urinal[facility], [facility], [address], [place], [address], Ph [phone]/02/2025 14:22:45urinalysis, kodhnjoj46tfleming29 [facility], [address], [place], [address], 01/08/2025 14:48:45urinalysis, qwanlkob90tfleming29[facility], [address], [place], [address], Ph [phone] 15:44:24ReferralNone recorded.Proceduresbladder scan (PROC)/ dyyawwwu69Gj_[facility], [address], [place], [address], [address]/ 14:48:51bladder scan (PROC)doreilley [facility], [address], [place], [address], 08/28/2024 14:31:22bladder scan (PROC)tfleming29[facility], [address], [place], [address], 10 15:44:24SurgeriesNone recorded.ImagingNone recorded.Medication Orderstamsulosin 0.4 mg uzuotvg87[id number], [address] [place], [place], [phone], 03/03/2024 15:53:07 Patient TargetsNo targets recorded. Patient Instructions Encounter Date Encounter Id Patient Instructions Last Modified By Organization Details Last Modified Time 03/03/2024 [id number] will continue on tamsulosin and gemtesa, rtc 12 weeks. [email or web address] Not available 03/03/2024 15:54:15 06/05/2024 [id number] will continue on both meds and rtc 12 weeks. [email or web address] Not available 06/05/2024 12:06:16 08/28/2024 [id number] will continue same meds and rtc in 12 weeks. [email or web address] Not available 08/28/2024 14:37:28 01/08/2025 [id number] continue tamsulosin and gemtesa, rtc 12 weeks for UA and med refill. [email or web address] Not available 01/08/2025 14:55:54 04/02/2025 [id number] doing better after treatment for vaginitis. will have her follow up with Dr Sharif in the spring with NEY blackwood Not available 04/02/2025 14:29:40 Reason for Referral None Reported. Results Created Date Observation Date Name Description Value Unit Range Abnormal Flag Note LastModifiedBy Organization Detail LastModifiedTime 03/03/2024 03/03/2024 bladder scan (PROC) Volume (in mL) 11m l Not Available[facility] [address], [place], [address], 12/ 17:00:021/urinalysis, dipstickBLOODNegativeNot Available [facility] [address], [place], [address], 69 17:00:011/urinalysis, dipstickBILIRUBINNegativeNot Available [facility] [address], [place], [address], 63 17:00:011/urinalysis, dipstickUROBILINOGEN0.2 mg/dL (Norm)Not Available[facility] [address], [place], [address], 96 17:00:011/urinalysis, dipstickKETONESNegativeNot Available [facility] [address], [place], [address], 05 17:00:011urinalysis, dipstickPROTEINNegativeNot Available [facility] [address], [place], [address], 57 17:00:011urinalysis, dipstickNITRITESNegativeNot Available [facility] [address], [place], [address], 11 17:00:011/urinalysis, dipstickGLUCOSENegativeNot Available [facility] [address], [place], [address], 19 17:00:0110//894665/03/2024urinalysis, dipstickp.H.5.5Not Available[facility] [address], [place], [address], 90 17:00:0110/143784/03/2024urinalysis, dipstickS.G. (Specific [place])1.025Not AvailableU[facility] [address], [place], [address], 62 17:00:0110//03/2024urinalysis, dipstickLEUKOCYTESNegativeNot Available [facility] [address], [place], [address], 69 17:00:0104/634955/ladder scan (PROC)Volume (in mL)0Not Available [facility] [address], [place], [address], 73 16:43:0008//ladder scan (PROC)Volume (in mL)4Not Available [facility] [address], [place], [address], 02 16:46:5508//urinalysis, dipstickBLOODTrace (5 RBC/uL)Not Available[facility] [address], [place], [address], 00 16:46:5308//urinalysis, dipstickBILIRUBINNegativeNot Available [facility] [address], [place], [address], 72 16:46:5308//urinalysis, dipstickUROBILINOGEN0.2 mg/dL (Norm)Not AvailableU[facility] [address], [place], [address], 20/ 16:46://urinalysis, dipstickKETONESNegativeNot Available [facility] [address], [place], [address], 68 16:46://urinalysis, dipstickPROTEINNegativeNot Available [facility] [address], [place], [address], 12 16:46:/urinalysis, dipstickNITRITESNegativeNot Available [facility] [address], [place], [address], 11 16:46:/urinalysis, dipstickGLUCOSENegativeNot Available [facility] [address], [place], [address], 77/ 16:46://urinalysis, dipstickp.H.6.5Not Available[facility] [address], [place], [address], 06/ 16:46:/urinalysis, dipstickS.G. (Specific [place])1.020Not AvailableU[facility] [address], [place], [address], 31/ 16:46:/urinalysis, dipstickLEUKOCYTESNegativeNot Available [facility] [address], [place], [address], Ph [phone]/ 16:46:5311//urinalysis, dipstickBLOODTrace (5 RBC/uL)Not AvailableU[facility] [address], [place], [address], 74 16:50:5811//urinalysis, dipstickBILIRUBINNegativeNot Available [facility] [address], [place], [address], Ph [phone] 16:50:5811/urinalysis, dipstickUROBILINOGEN0.2 mg/dL (Norm)Not AvailableU[facility] [address], [place], [address], 76 16:50:5811//urinalysis, dipstickKETONESNegativeNot Available [facility] [address], [place], [address], 59 16:50:5811/urinalysis, dipstickPROTEINNegativeNot Available [facility] [address], [place], [address], 26 16:50:5811/urinalysis, dipstickNITRITESNegativeNot Available [facility] [address], [place], [address], 41 16:50:5811//urinalysis, dipstickGLUCOSENegativeNot Available [facility] [address], [place], [address], 28/ 16:50:5811/urinalysis, dipstickp.H.5.5Not Available[facility] [address], [place], [address], 32/ 16:50:5811/urinalysis, dipstickS.G. (Specific [place])1.025Not AvailableU[facility] [address], [place], [address], 88/ 16:50:5811/urinalysis, dipstickLEUKOCYTESNegativeNot Available [facility] [address], [place], [address], 20/ 16:50:58 Result Notes None recorded. Problems Name Problem SNOMED Code Status Onset Date Resolution Date Notes Provider Name and Address Organization Details Recorded Time Kidney stone 08994968 Active 04/11/2007 [facility] Goylbse5612/03/2023 15:17:51Irritable bowel vxguysdp30461454Itczlx 04[facility]11/2007[facility] Jkeehir6612/03/2023 15:17:51Disorder of skeletal dguqts93245534 Atmnjx9908/06/2007[facility] Quxsgtl7012/03/2023 15:17:51Hypertensive nqehxahb85340678Zjlwub 04/01/2009[facility] Vyxjgzk3812/03/2023 15:17:51History of polyp of pdtuq119172440 Xirjor2609/09/2011[facility] Yhyxcwq8912/03/2023 15:17: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 131295135Lbepco83/26/2014[facility] Ffvzmop2212/03/2023 15:17:51Patient encounter usokvw900526990Mhznvr 01/16/2014[facility] Sqnqjpc1512/03/2023 15:17:73Bmeaszdmezsa12525808Hlixcp97/29/2017 [facility]is [facility] Nkxcxml8812/03/2023 15:17:51Right sided abdominal tppl793088218 Aofbij8701/02/2018[facility]aley [facility], [facility] Lwjejmp6112/03/2023 15:17:51Protein level - zodukvg831958684Xyoysy 01/02/2018[facility], [facility] Moakckb1712/03/2023 15:17:68Mgrutiiduhfp960136371Sxyxgj45/12/2018 Yarelis Prim null, [facility] Eiacatv0912/03/2023 15:17:51Diverticulum of large intestine without jjcljporaa711775672Btaina59/12/2018[facility] Vlqapfk2212/03/2023 15:17:51Mass of right adrenal gland 97260042101023537Nscyjt69/16/2018Haley Prim [facility] Wsmjwku1712/03/2023 15:17:51History of cerebrovascular accident 585572009Cbmqah44/06/2019[facility] Qqwdozb4612/03/2023 15:17:51Ureteric begfb80774338Viaqdk02/15/2019 N20.1 : Calculus of ureterNot QvoupqhrpLchpzzOcyfoj43/18/2020 02:06:08 Polycythemia vera (clinical)243034424Kihpgo48/16/2020[facility], [facility]12/03/2023 15:17:51Acute gastric ulcer without hemorrhage AND without rmtyvbximem57742320Pmevsp49/01/2020Haley Prim [facility] Xonuvog6812/03/2023 15:17:06Sbwzhbgicejfqr6523187Dabsdc16/11/2020 Yarelis [facility], [facility] Tjkfzjj9712/03/2023 15:17:51Recurrent urinary tract infection 903380276Cdwbrc17/09/2024Tomaribell Maddox MD [address] [place] [address],[address], [address], [facility]/02/2023 15:33:10Frank qofhdsgtz709324235Bnzfqn 07/02/2023Tomaribell Maddox MD [address] [place] [address],[address] [address] [address], [facility] Bqzggzu7907/02/2023 15:34:47Qehxcxu41303078Hnffgj97/31/2024Feliz Maddox MD [address] [place] [address],[place] [address], [place], [address], [facility]10/22/2023 12:34:25Increased frequency of urination 119264417Ffyusg02/31/2024Feliz Maddox MD [address] [place] [address],[place] [address], [place], [address], [facility]10/22/2023 12:34:26 Problem Notes None recorded. Procedures Surgical History Date Name Laterality Status Provider Name and Address Organization Details Recorded Time 01/08/2025 Bladder Scan Adan Maddox MD [address] [place] [address],[place] [address], [place], [address], [facility] Klqurlh5601/08/2025 14:48:46045Bladder [facility]completed[facility] Yvzocmm7308/28/2024 14:31:0414Bladder Scancompleted Feliz Maddox MD [address] [place] [address],[place] [address], [place], [address], [facility] Gkzhhis19/11/2024 15:44:074[facility] Iynbefd74/10/2025 14:21:1704Bladder Scancompleted Yarelis [facility] Irrlybe4612/03/2023 15:23:4Bladder Scan Adan Maddox MD [address] [place] [address],[place] [address], [place], [address], [facility] Duxsapy8910/22/2023 12:26:34005/24/2022total replacement of hip Adan Maddox MD [address] [place] [address],[place] [address], [place], [address], [facility] Sorlzfo9710/22/2023 12:17:10005/24/2019colonoscopycompletErin Maddox MD [address] [place] [address],[address] Vhxkdoj1006/05/2024 11:45:34reconstruction of pelvic floorcompleted Feliz Maddox MD [address] [place] [address],[address] Hyyqerz6209/15/2021 15:47:54 Imaging Results None recorded. Procedure Notes None recorded. Medical Equipment None Reported. Allergies Allergen ID Allergen Name Allergen Category Reaction Reaction Severity Criticality Documentation Date Start Date Code Code System Note Provider Name and Address Organization Details Recorded Time 606345 Fosamax medication abdominal pain Not available Not [id number] MD Varsha [address] [place] [address] Xevujsl39/01/2021 15:05:01752386tkcvvptszqz sodiummedicationother Not available high/04/20085675424601TdDlarUATZYY FLOOR PAINDezera Riddhi [facility]08/28/2024 14:29:07567322quyjxbvejv acidNot availableother Not available [facility]/04/20089833922094HwBxtdNqruoq floor dysfunction PELVIC FLOOR PAIN Dezerwagner Hannon [facility]08/28/2024 14:29:97934821vtjjz bee venomenvironment angioedema Not available high/2267600876LvMtpdzwx done fine with bees in the past. Could have been a hornet. unrecognized reaction (text: Throat Swelling/Closing, code: 025922048) (from external source)Feliz Maddox MD [address] [place] [address],[address] Jvbnjqc3801/08/2025 14:42:17 Medications Name Sig Start Date Stop [...] AvailableNot AvailableNot Available cefuroxime axetil 250 mg mphffm124completedNot AvailableNot AvailableNot Availableketoconazole 2 % shampooWASH SCALP 1-2X WEEKLY. LATHER AND LET SIT FOR 3-5 MINUTES BEFORE RINSING.activeNot AvailableNot AvailableNot Available cefpodoxime 200 mg zabuen314completedNot AvailableNot AvailableNot Availableoxybutynin chloride ER 10 mg tablet,extended release 24 hrTake 1 tablet every day by oral route for 30 days./4completedNot Available Not AvailableNot Availablefosfomycin tromethamine 3 gram oral packetMIX AND DRINK 1 PACKET BY MOUTH FOR 1 DAY4completedNot AvailableNot Available Not Availablefluconazole 150 mg tabletTAKE 1 TABLET BY MOUTH 1 TIME FOR 1 DOSE 02/21/2021ompletedNot AvailableNot AvailableNot Availablehydrocodone 5 mg- acetaminophen 325 mg tabletTAKE 1-2 TABLETS BY MOUTH EVERY 4-6 HOURS NEEDED 4completedNot AvailableNot AvailableNot Availableprednisone 20 mg tabletTAKE 1 TABLET BY MOUTH EVERY DAY4completedNot AvailableNot AvailableNot Availableprednisone 5 mg rgeiob994completedNot AvailableNot AvailableNot Availablelidocaine-prilocaine 2.5 %-2.5 % topical kit12/14/2019 4completedNot AvailableNot AvailableNot AvailableRemicade 100 mg intravenous solutionInject by intravenous route.activeNot AvailableNot Available Not Availablemeclizine 12.5 mg tabletTAKE 1 TABLET BY MOUTH 3-4 TIMES PER DAY NEEDED. MAY USE 1-2 TABLETS NEEDED EVERY 6-8 HOURS FOR ARQRNLFUV20/09/2024 completedNot AvailableNot AvailableNot Availablemetronidazole 500 mg tabletTAKE [...] days.4completedNot AvailableNot AvailableNot Availableaspirin 81 mg tablet,delayed gbxkqam84 mg by oral route.03/21/2020activeNot AvailableNot AvailableNot Availableacetaminophen 500 mg tabletTake 1000 mg by oral route. 4completedNot AvailableNot AvailableNot Available triamcinolone acetonide 0.1 % topical creamAPPLY TWICE DAILY TO ECZEMA UP TO 2 WEEKS THEN TAKE A 2 WEEK BREAK. REPEAT NEEDED.activeNot AvailableNot AvailableNot Availableoxycodone-acetaminophen 5 mg-325 mg uteetm4510/22/2023 completedNot AvailableNot AvailableNot Availablehydrocortisone 2.5 % topical cream with perineal applicatorAPPLY TOPICALLY TO HEMORRHOIDS TWICE DAILY NEEDED FOR SZPLVCTUFA33/09/2024ompletedNot AvailableNot AvailableNot Available prednisolone acetate 1 % [...] CAPSULE BY MOUTH TWICE DAILY NEEDED FOR ANGTCTWIGMBE19/31/2024ompletedNot AvailableNot AvailableNot Availableomeprazole 20 mg capsule,delayed releaseTAKE 1 CAPSULE BY MOUTH EVERY DAY BEFORE A MEALactiveNot AvailableNot AvailableNot Availablecephalexin 500 mg tabletTAKE 1 TABLET BY MOUTH EVERY 6 HOURS FOR 7 DAYS4completedNot AvailableNot AvailableNot Availablemupirocin 2 % topical ointmentAPPLY TOPICALLY TO VULVA TWICE DAILYactiveNot AvailableNot AvailableNot Availableibuprofen 600 mg rizkbv8607/02/2023ompletedNot AvailableNot AvailableNot Availableestradiol 0.01% (0.1 mg/gram) vaginal creamUSE DIRECTED VAGINALLY TWICE WEEKLYactiveNot AvailableNot AvailableNot Availablemethylprednisolone 4 mg tablets in a dose packFOLLOW PACKAGE YJQIEBKXNB00/09/2024ompletedNot AvailableNot AvailableNot Availableipratropium bromide 42 mcg (0.06 [...] TO 6 HOURS NEEDED FOR NAUSEA OR KBZYYOIO53ompletedNot AvailableNot AvailableNot Available amoxicillin 875 mg-potassium clavulanate 125 mg kxbigq9707/02/2023ompletedNot AvailableNot AvailableNot Availableoxycodone 5 mg tabletTAKE ONE-HALF TO 1 TABLET BY MOUTH EVERY 4-8 HOURS NEEDED FOR PAIN4completedNot AvailableNot AvailableNot Availableneomycin 3.5 mg/g-polymyxin B 10,000 unit/g- dexameth 0.1 % eye oint07/02/2023ompletedNot AvailableNot AvailableNot Availablecholecalciferol (vitamin D3) 25 mcg (1,000 unit) yawurki2109 units by oral route.10/20/2019activeNot AvailableNot AvailableNot AvailablePremarin 0.625 mg/gram vaginal creamAPPLY A SMALL AMOUNT OF CREAM 1/2 INCH RIBBON OVER THE URETHRA AND OUTER VAGINAL AREA AT BEDTIMEactiveNot AvailableNot AvailableNot Availablenitrofurantoin monohydrate/macrocrystals 100 mg eblsvwt5707/02/2023 completedNot AvailableNot AvailableNot Availablesolifenacin 5 mg tabletTAKE 1 TABLET BY MOUTH EVERY DAY4completedNot AvailableNot AvailableNot Availablemesalamine 1,000 mg rectal suppositoryUNWRAP AND INSERT 1 SUPPOSITORY RECTALLY EVERY DAY AT THKGYGA34/11/2024completedNot AvailableNot AvailableNot Availablemesalamine 1.2 gram tablet,delayed releaseTAKE 4 TABLETS BY MOUTH EVERY DAY WITH A MEAL07/02/2023ompletedNot AvailableNot AvailableNot Available hydrochlorothiazide 12.5 mg tabletactiveNot AvailableNot AvailableNot Available mesalamine rectal susp enema with cleansing wipes 4 gram/60 mL kitINSERT 60ML RECTALLY EVERY DAY AT YPTKAOY50/09/2024completedNot AvailableNot AvailableNot AvailableLinzess 72 mcg capsuleTAKE 1 [...] and Address Organization Details Last Updated DateTime 06/05/2024 154.94 cm 31.2 kg/m2 62565.74 g Feliz Maddox MD [address] [facility],[address], [address], [place] - [facility] 06/05/2024 11:43:34 Date Recorded Body height Body mass index (BMI) Body weight Provider Name and Address Organization Details Last Updated DateTime 08/28/2024 154.94 cm 32.1 kg/m2 48388.7 g [place] 08/28/2024 14:27:59 Date Recorded Body height Body mass index (BMI) Body weight Provider Name and Address Organization Details Last Updated DateTime 01/08/2025 154.94 cm 32.1 kg/m2 46791.7 g Feliz Maddox MD [address] [place] [address], [address] [place] [address] 01/08/2025 14:41:55 Date Recorded Body height Body mass index (BMI) Body weight Provider Name and Address Organization Details Last Updated DateTime 03/03/2024 154.94 cm 31.2 kg/m2 82086.74 g Feliz Maddox MD [address] [place] [address] 03/03/2024 15:35:26 Date Recorded Body height Body mass index (BMI) Body weight Provider Name and Address Organization Details Last Updated DateTime 04/02/2025 154.94 cm 32.1 kg/m2 46966.7 g [place] [facility] 04/02/2025 14:15:05 Social History Question Answer Notes LastModified by Organization D etails LastModified Time Tobacco Smoking Status Never Smoker Feliz Maddox MD [address] [place] [address], [address] [place] [address], [facility] Wvhcrla80/01/2021 15:09:21What Is Your Level Of Caffeine Consumption?Wazvjbfwbjhq54Gqpxxbubaxq not nrdukcmky40/01/2021What Was The Date Of Your Most Recent Tobacco Screening?04/02/2025doreilleyInformation not qyvkwzzno59/10/2025What Is Your Relationship Status?Kqglgfqnwtosmlp32Olmcfssnsjr not xdgbfohhj14/01/2021Has Tobacco Cessation Counseling Been Provided?No becrzgno40Jrfbubutnzk not klnhqccuq77/18/2025 Sex: Unknown Functional Status Question Answer Note LastModified by Organization D etails LastModified Time Do you use any illicit or recreational drugs? No cytzrdgv78Kjjazynihnx not /01/2021o you or have you ever used any other forms of tobacco or nicotine?Tpvsqeztdt67Khindfctkph not available 02/21/2021What is your level of alcohol consumption?Dlwvkjyybdaj71Nnoczbnosxl not uqqccxcwf11/01/2021re you currently employed?Gizoxehqyx01Wmjeabawtrq not diatqlrpk13/01/2021 Mental Status None recorded. Family History Relationship Description Onset Age of this Age Resolved Age Notes LastModified by Organization Details LastModified Time Father Family history of malignant neop lasm of prostate lcjgggvq31Jan jrwbceyhw73/01/2021 15:07:44 Notes:Mother had a stroke Medical History Condition Response Sexually Transmitted Infection N Diabetes N Other N Bleeding Disorder N High [...] PF 02/22/2018 comp leted Malia Mccollumf null, [facility] Nvrywyn9007/15/2023 11:50:52Influenza, adjuvanted, trivalent, PF 03/17/2017completedDebra [facility]althall [facility] Ukhdnjx6207/15/2023 11:50:52Influenza, recombinant, quadrivalent, PF03/25/2019completedDebra Brien null, [facility] Nvazpej5907/15/2023 11:50:52Influenza, adjuvanted, quadrivalent, PF 02/14/2020completedDebra Brien null, [facility]07/15/2023 11:50:52COVID-19, mRNA, LNP-S, PF, 30 mcg/0.3 mL dose07/06/2020ompletedDebra Walthall null, [facility] Bepkofv2307/15/2023 11:50:52COVID-19, mRNA, LNP-S, PF, 30 mcg/0.3 mL dose1completedDebra Walthall null, [facility] Hsxgdfw1601/05/2025 10:22:46pneumococcal polysaccharide PPV23 08/30/2007completedDwil Hannon null, [facility]08/28/2024 14:28:50Xvpn2310/02/2011completedDebra Walthall null, [facility]01/05/2025 10:22:46Pneumococcal conjugate PCV 1309/ completedDebra Walthall null, [facility]01/05/2025 10:22:46zoster live04/11/2007completedDezera OReilley null, [facility]08/28/2024 14:28:53Influenza, high-dose, trivalent, PF 02/17/2016completedDebra Brien null, [facility]07/15/2023 11:50:52Influenza, split virus, trivalent, mjynyunzwhsv44/04/2010completedD Walthall null, [facility]01/05/2025 10:22:46Influenza, split virus, trivalent, sylkkxsmlxxk25/06/2014completedDebra Brien null, [facility]01/05/2025 10:22:46Influenza, split virus, trivalent, fylopebvdrax32/07/2009completJacindawil Lanzailley null, [facility]08/28/2024 14:28:53Influenza, split virus, trivalent, fsaijfifktxy35/11/2012completedDebra Brien null, [facility]01/05/2025 10:22:46Influenza, split virus, trivalent, arohyslnlkcz89/27/2008completedDezlucius OReilley null, [facility]08/28/2024 14:28:53Influenza, split virus, trivalent, sjvyolyrwbbc90/01/2007completedDebra Walthall null, [facility]07/15/2023 11:50:53Influenza, split virus, trivalent, ocldsutdvxbp00/11/2006completedDebra Brien null, [facility]07/15/2023 11:50:53Influenza, split virus, trivalent, offnkhawkdyv89/30/2011completedDebra Brien null, [facility]01/05/2025 10:22:46Novel oxhdxjqja-O4N2-5459/18/2009 completedDebra Brien null, [facility]01/05/2025 10:22:46Td (adult), 5 Lf tetanus toxoid, preservative free, ubkdwgab04/10/2020completedDebra Walthall null, [facility]01/05/2025 10:22:46Td (adult), 2 Lf tetanus toxoid, preservative free, vmsubnnf28/01/2002completedDebra Brien null, [facility]07/15/2023 11:50:53Influenza, split virus, quadrivalent, PF02/18/2015completedDebra Brien null, [facility]01/05/2025 10:22:46Influenza, adjuvanted, quadrivalent, PF 1completedNot QyhkvzmowCmeucxFgwmwv36/10/2025 14:01:20COVID-19, mRNA, LNP-S, PF, 30 mcg/0.3 mL dose1completedNot AvailableAt[facility] 04/02/2025 14:01:20Influenza, split virus, quadrivalent, PF05/10/2009completed Not FvvwrladrJszlphFlrkjw15/10/2025 14:01:20COVID-19, mRNA, LNP-S, PF, 30 mcg/0.3 mL dose, jasmyn-twckopg91/18/2022completedNot AvailableAth[facility] 04/02/2025 14:01:20COVID-19, mRNA, LNP-S, bivalent, PF, 50 mcg/0.5 mL or 25mcg/0.25 mL dose2completedNot MtewbpjriJsfyusSdgnie15/10/2025 14:01:20Influenza, adjuvanted, quadrivalent, PF2completedNot Available UoyujoTwuxtr27/10/2025 14:01:20COVID-19, mRNA, LNP-S, PF, 50 mcg/0.5 mL 03/02/2023ompletedNot MjmjimhbiKoxkhoBdcwaj91/10/2025 14:01:20Influenza, high- dose, quadrivalent, PF03/14/2023ompletedNot BejjcifigUpjhwbUctpmj68/10/2025 14:01:20zoster oicbxwakaad01/24/2024ompletedNot EizdliucnZvuvjhUktqlm58/10/2025 14:01:20zoster rqzlrrctvia70/07/2024ompletedNot TxeixcladVksosaKcdvmf40/10/2025 14:01:20COVID-19, mRNA, LNP-S, PF, 50 mcg/0.5 mL02/09/2024ompletedNot Available MebdopQocdqq84/10/2025 14:01:20Influenza, high-dose, trivalent, PF03/06/2024 completedNot BglaqxfcpVcsjfkQxwrxb18/10/2025 14:01:20RSV, bivalent, protein subunit RSVpreF, diluent reconstituted, 0.5 mL, PF03/29/2024ompletedNot SqpntzwrfHutjifFaonkb74/10/2025 14:01:20Novel Fqfrgvzyz-V0D8-78, all gqnmvzejyvii80/18/2009completedDebra Brien null, [facility] [facility] Tlyqhte9401/05/2025 10:22:46Influenza, split virus, trivalent, PF 04/22/2011completedDebra Walthall null, [facility] Jejhvul2401/05/2025 10:22:46Influenza, adjuvanted, trivalent, PF 01/29/2025ompletedNot QnxtcunntOvvgqjAfrxkw88/10/2025 14:01:20COVID-19, mRNA, LNP-S, PF, jasmyn-sucrose, 30 mcg/0.3 mL02/17/2025ompletedNot Available ZtzlfvFdfsaq47/10/2025 14:01:20 Past Encounters Encounter ID Performer Location Encounter Start Date Encounter Closed Date Diagnosis/Indication Diagnosis SNOMED-CT Code Diagnosis ICD10 Code Diagnosis IMO Codes Diagnosis Note [id number] Feliz Maddox MD [facility] [address] [place] [address] 02/21/2021 14:40:44 02/26/2021 09:17:07 Kidney stone 99137874 N20.0 Jerome mhssnveqd164004643A85.0 [id number] Strange [address] [place] [address] 09/15/2021 15:21:48009/22/2021 12:57:47Ureteric bgqyp03920438U13.1 Kidney mucvs88581086P98.0 multiple bilateral stones.[id number] Strange [address] [place] [address] 07/02/2023 14:38:0707/08/2023 16:06:51Recurrent urinary tract zqokkuwaf740119002 N39.0 Kidney icudg01918267V10.0 multiple bilateral stones.Jerome ebxpbgese350044921R08.0 [id number] Strange [address] [place] [address] 10/22/2023 11:38:24010/25/2023 12:23:19Recurrent urinary tract ymvjbbdfh144688632 N39.0 Increased frequency of sbngdzooz543852772H08.0 Rnyrbze17565614Q81.0 [id number] Strange [address] [place] [address] 12/03/2023 14:58:00012/18/2023 17:01:46Increased frequency of cuhycsmex438142065 R35.0 Recurrent urinary tract czlrisagc809543891R18.0 Zrugnlz96971147K21.0 [id number] Strange [address] [place] [address] 03/03/2024 15:25:191 09:58:00Increased frequency of oopvlfvyj196270453 R35.0 [id number] Strange [address] [place] [address] 06/05/2024 11:22:55006/08/2024 16:00:35Increased frequency of ybswbkxgm679140702 R35.0 [id number] Strange [address] [place] [address] 08/28/2024 13:16:11008/29/2024 10:53:25Increased frequency of ervwgxokf552965579 R35.0 [id number] Strange_Fransiscowagner [address] [place] [address] 01/08/2025 14:30:00001/09/2025 09:58:30Increased frequency of mziwnzoec077620663 R35.0 [id number] Smith_Fransiscoa [address] [place] [address] 04/02/2025 13:56:38106/03/2024 11:48:50Dhnvfsd63403770I48.0 Health Concerns Section Related Observation LastModified by Organization Detai ls LastModified Time None Recorded Concern Status LastModified by Organization Details LastModified Time None Recorded Advance Directives Directive None Recorded Payers Insurance Date Sequence Insurance Name Policy Number Policy Philip Covered Member ID Philip Member ID Guarantor Name 04/02/2025 1 [employer] [id number] Dolly A Chau [id number] Dolly ChauMEDICA - DOS ON OR AFTER 2020 - MEDICA GOVERNMENT PROGRAMS - ADVANTAGE SOLUTION (MEDICARE REPLACEMENT/ADVANTAGE - PPO) [id number] [id number] A Hanson Notes Date Note Type Note Provider Name and Address Orga nization Details Recorded Time 03/03/2024 text/html follow up OAB and MARIBEL taking gemtesa and tamsulosin, got UTI end of Jan. treated with cefpodoxime,UA clear today and PVR 11ml. needs refill on tamsulosin.Feliz Maddox MD [address], [place], [address], [facility] Druetvg03/11/2024 15:54:34006/05/2024text/html taking tamsulosin and gemtesa. voiding well, minimal dysuria.Mariela marcano [facility] Qtqkxsu6406/05/2024 12:32:1204text/html follow up frequency, taking tamsulosin and gemtesa. doing well and PVR 0ml today. has occasional daytime dysuria.Feliz Maddox MD [address], [place], [address], [facility] Fjxtifx1208/28/2024 14:37:49001/08/2025text/html follow up OAB.taking tamsulosin and gemtesa. started estrogen cream for vagiinitis a week ago. not much change yet. needs refill on tamsulosin rx with next visit UA clear and IN 4ml today.Feliz Maddox MD [address], [place], [address], [facility] Wimneit7101/08/2025 14:56:14106/02/2024text/html been treated for vaginitis with bactroban and lotrisone, and estrogen cream and doing well, seeing pelvic floor therapy soon. UA bland todayDezera Riddhi marcano [facility] Ldhipoa36/10/2025 14:30:33 OBGyn Episode No OBEpisode recorded.
--- OUTSIDE RECORDS SUMMARY | 2025-05-12 08:04 | XMS_ITS | Clinical Summary ---
Author Organization [facility] Address Critical access hospital[address] [place] [address] Care Team Providers Care Data Operations Director Name Role Phone Bk Sigala MD Unavailable [phone] Yennifer Baird MD Unavailable Darleen Dacosta DO Primary Care Provider [phone] Divya Dudley MD Unavailable [phone] Jessica Gibson NP Unavailable Allergies Active AllergyReactionsCriticalityNoted DateCommentsAlendronate SodiumOther - Describe In Comment MyvpzOamgte85/12/2008 PELVIC FLOOR PAIN Venom-Honey BeeAngioedema,Throat Swelling/MqbalozGaon59/02/2022 has done fine with bees in the past. Could have been a hornet. Medications MedicationSigDispense QuantityRefillsLast FilledStart DateEnd DateStatus acetaminophen (TYLENOL EXTRA STRGTH) 500 mg tablet Take 1,000 mg by mouth every 6 hours if needed for Pain. Max acetaminophen dose: 4000mg in 24 hrs. Takes XSG06606/30/2019Active ascorbic acid, vitamin C, (VITAMIN C) 1,000 mg tablet Take 1,000 mg by mouth once daily.Active aspirin 81 mg cap Take by mouth.ctive EPINEPHrine (EPIPEN) 0.3 mg/0.3 mL auto-injector Indications:Anaphylactic reaction to bee sting, accidental or unintentional, sequelaInject 0.3 mg (1 pen) intramuscular each time if needed for Allergic Reaction. 1 Each ctive cyanocobalamin (VITAMIN B12) 1,000 mcg tablet Take 1,000 mcg by mouth.Active cholecalciferol, Vitamin D3, 2,000 unit tablet Indications:Disorder of bone and cartilageTake 2 Tablets (4,000 units) by mouth once daily.ctive famotidine (PEPCID) 20 mg tablet Take 20 mg by mouth once daily.05/13/2023ctive ketoconazole 2% topical (NIZORAL) cream MIX IN 11 RATIO WITH DESONIDE CREAM AND APPLY A THIN LAYER TO THE AFFECTED AREAS AROUND HER MOUTH TWICE DAILY FOR UP TO 2 WEEKS.05/12/2023ctive desonide 0.05% (TRIDESILON 0.05% CREAM) 0.05 % cream APPLY TO EYELIDS TWICE DAILY FOR 1-2 WEEKS. MIX 11 WITH KETOCONAZOLE CREAM AND APPLY TO AFFECTED AREAS AROUND MOUTH TWICE DAILY FOR 1-2 WEE107/13/2022ctive clobetasol 0.05% TOPICAL (TEMOVATE) 0.05 % external solution 08/26/2023ctive metroNIDAZOLE 0.75 % cream 08/26/2023ctive vibegron (Gemtesa) 75 mg tablet Take 75 mg by mouth once daily.Active tamsulosin (FLOMAX) 0.4 mg capsule 1 Capsule.12/22/2023ctive CALCIUM CITRATE ORAL Take 600 mg by mouth once daily.Active vitamin E acetate (VITAMIN E ORAL) Active inFLIXimab (Remicade) 100 mg injection Inject intravenous.Active hypromellose (OASIS TEARS EYE DROPS) Active ipratropium 42 mcg (0.06 %) nasal spray Indications:Chronic rhinitisINHALE 2 SPRAYS INTO THE AFFECTED NOSTRILS THREE TIMES DAILY IF NEEDED FOR RHINITIS 15 mL 1105Active prednisoLONE acetate 1% ophthalmic (ECONOPRED PLUS, PRED FORTE, OMNIPRED) suspension SHAKE LIQUID AND INSTILL 1 DROP IN LEFT EYE FOUR TIMES DAILY FOR 1 WEEK THEN STOP5Active estrogens, conjugated (PREMARIN) 0.625 mg/gram vaginal cream Indications:Postmenopausal atrophy of urethraapply a small amount of cream 1/2 inch ribbon over the urethra and outer vaginal area at bedtime. 30 g 5Active clotrimazole-betamethasone 1%-0.05% cream Indications:Postmenopausal atrophy of urethraApply topically to affected area(s) two times daily. 45 g 5Active simvastatin (ZOCOR) 20 mg tablet Indications:Cerebrovascular accident (CVA), unspecified mechanism (HC)TAKE 1 TABLET BY MOUTH EVERY DAY IN THE EVENING 90 Tablet 5Active clopidogreL (PLAVIX) 75 mg tablet Indications:Cerebrovascular accident (CVA), unspecified mechanism (HC)TAKE 1 TABLET(75 MG) BY MOUTH EVERY MORNING. 90 Tablet 5Active hydroCHLOROthiazide 12.5 mg tablet Indications:HTN (hypertension)TAKE 1 TABLET(12.5 MG) BY MOUTH EVERY DAY 90 Tablet 5Active hydroxyurea (HYDREA) 500 mg capsule Indications:Leukocytosis, unspecified typeTAKE 1 CAPSULE(500 MG) BY MOUTH TWICE DAILY 180 Capsule 5Active Linzess 72 mcg cap capsule Take 1 Capsule by mouth before breakfast.Active mupirocin 2% ointment Indications:Skin infectionApply topically to affected area(s) three times daily. 22 g 5Active Active Problems ProblemNoted DateDiagnosed DateLeft sided colitis without complications 04/13/2024Sensorineural hearing loss, znuhfmqpa16/09/2024Myelophthisic anemia 08/23/2023Osteoarthritis of left sacroiliac joint08/23/2023Ischemic colitis 08/23/2023Left sided ulcerative (chronic) tcglril9003/05/2023Left sided ulcerative ksauzla3412/22/2022llergic reaction to insect bite03/24/2022nemia, macrocytic 03/24/2022alculus of left yjlyag3503/24/2022Leukopenia due to antineoplastic qiwabodsgwlo77/01/2022 Assessment & Plan (09/28/2022 12:44 PM CDT): hydroxyurea for PCV. Darleen Dacosta DMarcelOMarcel 09/28/2022 12:44 PM Non-ST elevation (NSTEMI) myocardial tasdhcbclx11/01/2022steoarthritis of right hip03/24/2022/P arthroscopic partial lateral aihfeftyxnqj28/01/2022Vision loss of left eye03/24/2022erebrovascular accident (CVA)03/24/2022MDS (myelodysplastic syndrome)12/15/2021History of nbsxyhfwnlgkoyo88/25/2022 Overview (12/15/2021): Grade 3 rectal intussusception 2017 ?? Normocalcemic primary vfsbsbnffjviiwkusht69/16/2022Diverticular disease 4429Cbzascaj48/08/3199Avuhxo06/08/2021bdominal pain03/31/2021 Kwcsnjwpktwbohb27/11/2020 Overview (02/02/2020): Component Latest Ref Rng & Units 10/20/2019 11/06/2019 11/15/2019 PLATELET COUNT 140 - 440 thou/cu mm 558 (H) 753 (H) 585 (H) Acute gastric ulcer without hemorrhage or jbwofyvsdwd41/01/2020 Overview (01/23/2020): EGD 12/2019 5 mm gastric ulcer secondary to aspirin, will use Pepcid since patient is on Plavix no follow-up upper endoscopy is needed Polycythemia vera12/07/2019History of retxbq5212/27/2018Adrenal mass, right 01/06/2018 Overview (03/14/2018): suspected from adrenal hemorrhage while on plavix. follow up will be in March 2018 with endo andimaging. Mobndpydjkta37/12/2018Elevated tmzjximo45/12/2018Diverticulosis of large intestine without /12/2018 Overview (01/23/2020): Severe diverticular stricture, biopsies from the colon showed no microscopic colitis. No follow-up colonoscopy is needed given the severe diverticular stricture and no polyps found today Sigkphlkcodv13/29/2017ACP (advance care planning)01/16/2014 Overview (01/16/2014): Has done living will. 10/09/2011 Bowel habit oilpsaa4601/16/2014Personal history of colonic irmbke1209/09/2011 Overview (01/23/2020): Colonoscopy 08/2011 diverticulosis repeat in 5 years Colonoscopy 10/2017 severe diverticular disease, 2 mm polyp, no follow up colonoscopy needed Severe diverticular stricture, biopsies from the colon showed no microscopic colitis. No follow-up colonoscopy is needed given the severe diverticular stricture and no polyps found today HTN (hypertension)04/01/2009Leukocytosis, cgijnwgopek26/16/2008 Overview (03/24/2022): In setting of ARF and renal stenting juyludztzd35/15/2008 Overview (02/13/2015): Previous use of actonel 3 years. Off a couple years and then decline. Resumed 2012 and will consider taking for 5 years. Roxanna Brambila M.D. 10/02/2011 11:00 AM History of kidney mkkwpt4304/11/2007Irritable bowel /19/2007 Overview (04/11/2007): collagenus colitis on colonoscopy in 1990, normal exams since then. Cystocele, midlineVaginal vault prolapse Resolved Problems ProblemNoted DateDiagnosed DateResolved DateLeft sided colitis, unspecified drbuuoryymqi91/03/202203/cute ischemic /05/2022Right hand yyjyvkjx47Acute UTIRight lateral abdominal pain Overview (01/06/2018): 2/2 adrenal hematoma vs hemorrhagic mass while on plavix Acute kidney failure, smkdosoyijr47 Overview (08/07/2007): Creatinine elevation to 2.9 after complicated right renal lithotripsy and stent placement. Nonspecific (abnormal) findings on radiological and other examination of genitourinary Overview (08/07/2007): Abnormal CT scan: right kidney enlargement, free air external to right ureter, stent in ureter. Nausea with owbkspsf47Other alteration of consciousness Encounters DateTypeDepartmentCare DuejYylyytxaeqr56/18/2025 11:30 AM CSTOffice Visit [facility] [address] [place] [address] Anne Mccracken PA Derm Problem (sore on left ankle x 1 week, red and tender)05/10/2025Travel 04/20/2025 11:55 AM INDUSTRIAL ENGINEERING DIRECTOR - 04/20/2025 11:59 PM CSTHospital Encounter [facility] [address] [place] [address] Connor London MD Left sided colitis without complications (HC) (Primary Dx)04/20/2025Travel 04/17/2025Orders Only [facility] [address] [place] [address] Connor London MD 1 scan: IV MEDICATION RPRQSX5804/12/2025Orders Only [facility] Scanner 1 scan: (1-Ord) TAREEN DERMATOLOGY, F/U: NEOPLASM OF UNCERTAIN BEHAVIOR, Telephone [facility] [address] [place] [address] Zulay Ortiz RN Updated orders for /09/2025Refill [facility] [address] [place] [address] KeenatDarleen, DO Refill Request (Hydrochlorothiazide, Hydroxyurea)03/28/2025Refill [facility] [address] [place] [address] Keenat Darleen Beverley, DO Refill Request (Clopidogrel)03/18/2025Refill [facility] [address] [place] [address] KeenatDarleen, DO Refill Request (Simvastatin)03/05/2025Orders Only [facility] Scanner 1 scan: (1-Ord) TAREEN DERMATOLOGY, SHAVE BIOPSY LT SUPERIOR LATERAL MALAR CHEEK, Telephone [address] [facility] [address] Oncology, [facility] Jksylyfjrqc46/02/2025 1:00 PM CDTOffice Visit [address] [place] [address] Divya Dudley MD Follow Up (Polycythemia vera)02/22/2025 12:41 PM CDT - 02/22/2025 11:59 PM CDT Hospital Encounter [address] [place] [address] Connor London MD Left sided colitis without complications (HC) (Primary Dx)02/22/2025Travel 02/21/2025 11:18 AM CDT - 02/21/2025 11:59 PM CDTHospital Encounter [facility] [place] [address] [facility] [address] [place] [address] Gallo Potts MD Guist, Angela M, PT Pelvic pain (Primary Dx)02/20/2025 1:00 PM CDTOrders Only [facility] [address] [place] [address] [place], [place] Lab02/20/20254633Vjgqnr49/25/2025Telephone [facility] [address] [place] [address] Darleen Dacosta DO Appointment (UROGYNECOLOGY )from Last 3 Months Immunizations ImmunizationAdministration DatesNext DueAMB INFLUENZA IIV3 (AGE 65+ YRS) PF (Flu Clinic Only)02/22/2018COVID-19 vaccine (Moderna 50mcg/0.5mL) 12YO+ BIVALENT PF, MDV2COVID-19 vaccine (Pfizer-BioNTech 30mcg/0.3mL) 12YO+ PATRICK-SUCROSE PF, MDV2COVID-19 vaccine (Pfizer-BioNTech 30mcg/0.3mL) PF, MDV 02/12/2021,07/27/2020,07/06/2020INFLUENZA, IIV3 PF (AGE >= 6 MO)04/22/2011 Influenza A (H1N1), Inactivated (Age >=3 Years)05/10/2009Influenza RIV4 (Age 18+ Years) PRESERV FREE03/25/2019Influenza, High-dose Tookyhlshsw08/14/2024, 02/17/2016Influenza, High-dose Quadrivalent Otlxfgvrkgg88/22/2023Influenza, IIV3 (Age >=3 years)02/26/2014,03/03/2012,04/22/2011,02/24/2010,02/27/2009,03/19/2008 ,03/24/2007,04/03/2006Influenza, OTL961Influenza, Inactivated AIIV4 (Age 65+ Years) Preserv Free02/23/2022,02/05/2021,02/14/2020Influenza, Inactivated IIV3 (Age 65+ Years) Preserv Free01/29/2025,03/17/2017Pneumococcal Poly,23- Valent (Pneumovax)08/30/2007Pneumococcal conj 13-Valent (Prevnar 13)02/18/2015 RSV, Bivalent Vaccine Reconstituted (Abrysvo 120MCG/0.5mL)03/29/2024Td (Age >=7 Years)09/01/2019,05/24/2001Td, Preservative Free (age >= 7 Years)09/01/2019Tdap 10/02/2011Zoster (Shingrix-RZV, recombinant)11/28/2023,09/15/2023Zoster (Zostavax-ZVL, live)04/11/2007 Family History Medical HistoryRelationNameCommentsCancer-prostateFatherdied age 76Heart Disease Motherdied age 87, chf.StrokeMotherCancer-breastOthercousin on mother's side Blood DiseaseSister 1died age 7, leukemiaCancerSister 2ovarian, dx age 62 RelationNameStatusCommentsFatherMotherOtherSister 1Sister 2 Social History Tobacco UseTypesPacks/DayYears UsedDateSmoking Tobacco: NeverSmokeless Tobacco: Never Tobacco Cessation:Counseling Given: Yes Alcohol UseStandard Drinks/WeekCommentsNo0 (1 standard drink = 0.6 oz pure alcohol)PHQ-2AnswerDate RecordedPHQ-2 TOTAL LTAHJ263Social Connections AnswerDate RecordedDo you often feel lonely or isolated from those around you?0 09/25/2024Financial Resource StrainAnswerDate RecordedDifficulty of Paying Living Pmkpvjvf365/05/2025Difficulty of Paying Living ExpensesNot on file 09/25/2024Food InsecurityAnswerDate RecordedDo you worry your food will run out before you are able to buy more?Transportation NeedsAnswerDate RecordedDoes lack of transportation keep you from medical appointments?1 09/25/2024Does lack of transportation keep you from work, meetings or getting things that you need?Housing StabilityAnswerDate RecordedWhat is your housing situation today?UtilitiesAnswerDate RecordedDo you have trouble paying for utilities (for example, heat, electricity, water, phone)?1 09/25/2024CommentsNoSex and Gender InformationValueDate RecordedSex Assigned at BirthNot on fileLegal CpnQhbdvf09/14/2013 5:24 AM CSTGender Identity Not on fileSexual OrientationNot on fileOccupationIndustryJob Start DateJob End DateCLERKNot on fileNot on fileNot on file Obstetrics History GravidaParaTermPretermABIABSABEctopicMultipleLivingLive Cjuvhp07029KoysTqawcmmNW Total LaborLabor/2nd/5ixVdrsxaTcgMiqkWiwbAMSPqdE4D6PiqbJxsvFtvfWwakCxrsKBY Last Filed Vital Signs Vital SignReadingTime TakenCommentsBlood Tthyhzel867/8605/10/2025 11:01 AM INDUSTRIAL ENGINEERING DIRECTOR Lbcgg580005/10/2025 11:01 AM LOMEucitsrzsfh04.9 ??C (98.4 ??F)04/20/2025 12:09 PM CSTRespiratory Jsts4587 12:09 PM CSTOxygen Bodemlgnmc67%05/10/2025 11:01 AM CSTInhaled Oxygen Concentration--Vnxvwb80.2 kg (168 lb)05/10/2025 11:01 AM CEVGnpkky195 cm (5' 1.42)03/29/2024 11:17 AM CSTBody Mass Index31.31105/29/2023 11:17 AM INDUSTRIAL ENGINEERING DIRECTOR Plan of Treatment DateTypeDepartmentCare Team (Latest Contact Info)Rksemypetlp11/15/2026 1:00 PM CSTOrders Only [facility] [address] [facility] [place] [address] [place] 06/14/2025 1:00 PM CSTAppointment [facility] [address] [place] [address] 06/14/2025 1:45 PM CSTOffice Visit [facility] [address] [place] [phone] Jessica Gibson, BEE RANCHER [address] [place] [address] Health MaintenanceDue DateLast DoneCommentsBMI (ht and wt on same day) for age 18+, 08/23/2023, 05/13/2023, Additional history exists Medicare Wellness for age 65+, 03/17/2017, 02/17/2016, Additional history existsDepression screening for age 12+, 03/29/2024, 01/23/2022, Additional history existsCOVID-19 vaccine series (9 - Pfizer risk season)/, 02/09/2024, 03/02/2023, Additional history existsTetanus umwpuqe42, 09/01/2019, 10/02/2011, Additional history existsPneumococcal series for age 50+Completed 02/18/2015, 08/30/2007DEXA/DXA scan for age 65+Ecifgjiws12/16/2022, 02/17/2016, 11/11/2012, Additional history existsZoster (shingles) series for age 50+ Hvodrxjku34/07/2024, 09/15/2023, 04/11/2007RSV vaccine for adults or Wchkjggqe63/06/2024Influenza TilypabFjbglhckk27/08/2025, 03/06/2024, 02/23/2022, Additional history existsHepatitis B series for 19+Aged OutNo longer eligible based on patient's age to complete this topic Medical Devices ImplantedTypeAreaManufacturerDevice IdentifierShelf Expiration DateModel / Serial / LotStent Uret [id number] W/Tether - [id number] [facility]:Qty[facility] [employer] [id number]# / / [id number] Uret 4.6vko64zf Silhouette - [id number] Implanted:Qty: 1 on 12/28/2018 by [facility] MBBS [facility] UreterApplied Medical Resources [id number]# / / [id number] Pelvic 12j53eb Gynemesh - [id number] Implanted:Qty: 1 on 07/15/2021 by Jessica Campbell MD at [facility] / Uro04/22/2026GPSXL3 / / [id number] Uret [id number] Contour - [id number] Implanted:Qty: 1 on 08/04/2023 by [facility]: UreterBSC Kpemgbi82/22/[id number] / / [id number]tshjnNdivot IdentifierShelf Expiration DateModel / Serial / LotPower Port Isp Mri 6fr [id number] - [id number] Implanted:Qty: 1 on 12/14/2019 by Nida Bello DO at [facility] Explanted:Qty: 1 on 07/17/2020 by [facility]: Subcl[employer] [id number] / / [id number] Procedures Procedure NamePriorityDate/TimeAssociated DiagnosisCommentsSCAN- OPERATIVE/PROCEDURE KHSOET6704/12/2025 12:00 AM INDUSTRIAL ENGINEERING DIRECTOR SCAN-OPERATIVE/PROCEDURE MFWNNW4003/05/2025 12:00 AM CDT CBC WITH AUTO TDSMKHLIOGUWWsyrbak29/30/2025 12:51 PM CDT Polycythemia vera (HC) [D45] COMP METABOLIC CZPFJIadymcg03/30/2025 12:51 PM CDT Polycythemia vera (HC) [D45] CBC WITH AUTO EZJBNZGLGVNVIqikdrc99/30/2025 12:51 PM CDT Polycythemia vera (HC) [D45] XR DXA BONE DENSITY 2 SITES IWGGLQnzugfx01/16/2022 1:53 PM CDT Post-menopausal from Last 3 Months or Most Recently Relevant to Health Maintenance Results * SCAN-OPERATIVE/PROCEDURE REPORT (04/12/2025 12:00 AM INDUSTRIAL ENGINEERING DIRECTOR) Narrative Authorizing ProviderResult TypeResult StatusScannerOTHERFinal Result * SCAN-OPERATIVE/PROCEDURE REPORT (03/05/2025 12:00 AM CDT) Narrative Authorizing ProviderResult TypeResult StatusScannerOTHERFinal Result * (ABNORMAL) CBC WITH AUTO DIFFERENTIAL (02/20/2025 12:51 PM CDT)ComponentValue Ref RangeTest MethodAnalysis TimePerformed AtPathologist SignatureWHITE BLOOD CELL COUNT4.03.8 - 10.8 Thousand/uL02/21/2025 4:32 AM CDTQUEST DIAGNOSTICSRED BLOOD CELL COUNT3.06(L)3.80 - 5.10 Million/uL02/21/2025 4:32 AM CDTQUEST NWGOSEQBLCGVEEEXOYIWS60.211.7 - 15.5 g/dL02/21/2025 4:32 AM CDTQUEST HMVCIIPJCIHISOWRDVCYY04.935.0 - 45.0 %02/21/2025 4:32 AM CDT[facility] QZX744.6(H)80.0 - 100.0 fL02/21/2025 4:32 AM CDTQUEST UAVNFBXBIQSGBS67.9(H) 27.0 - 33.0 pg02/21/2025 4:32 AM CDTQUEST HCAITLUNIAXIICT08.132.0 - 36.0 g/dL 02/21/2025 4:32 AM CDTQUEST DIAGNOSTICSComment: For adults, a slight decrease in the calculated MCHC value (in the range of 30 to 32 g/dL) is most likely not clinically significant; however, it should be interpreted with caution in correlation with other red cell parameters and the patient's clinical condition. RDW14.311.0 - 15.0 %02/21/2025 4:32 AM CDTQUEST DIAGNOSTICSPLATELET BHNPH198435 - 400 Thousand/uL02/21/2025 4:32 AM CDTQUEST CXVNMLJRSSFUEZ76.27.5 - 12.5 fL 02/21/2025 4:32 AM CDTQUEST YKWSGQFZFJJMRGUXIKTIDS17.7%02/21/2025 4:32 AM CDT QUEST HQCDBYKKAFROUPSXFIEYCN86.0%02/21/2025 4:32 AM CDT[facility] ZVSTWQLEV26.5%02/21/2025 4:32 AM CDTQUEST DIAGNOSTICSEOSINOPHILS2.0%02/21/2025 4:32 AM CDTQUEST DIAGNOSTICSBASOPHILS0.8%02/21/2025 4:32 AM CDT[facility] ABSOLUTE YRBHDNUPGHO74832971 - 7800 cells/uL02/21/2025 4:32 AM CDTQUEST DIAGNOSTICSABSOLUTE FTUPVYJQZUJ0375610 - 3900 cells/uL02/21/2025 4:32 AM CDT QUEST DIAGNOSTICSABSOLUTE HQIPSOHSE723837 - 950 cells/uL02/21/2025 4:32 AM CDT [facility] DIAGNOSTICSABSOLUTE VQGJYWNLZDR8217 - 500 cells/uL02/21/2025 4:32 AM CDT [facility] DIAGNOSTICSABSOLUTE XSPVWGZHD871 - 200 cells/uL02/21/2025 4:32 AM CDTQUEST DIAGNOSTICSCBC (INCLUDES DIFF/PLT) COMMENTSSEE NOTE02/21/2025 4:32 AM CDTQUEST DIAGNOSTICSComment: Review of peripheral smear confirms automated results. Specimen (Source)Anatomical Location / LateralityCollection Method / Volume Collection TimeReceived TimeBloodBLOOD SPECIMEN / UnknownQuest Collect / Unknown 02/20/2025 12:51 PM CDT02/20/2025 12:52 PM CDT Narrative [facility] - 02/21/2025 4:32 AM CDT FASTING:UNKNOWN FASTING: UNKNOWN Authorizing ProviderResult TypeResult StatusAmy L Arthur NPHEMATOLOGYFinal Result Performing OrganizationAddressCity/State/ZIP CodePhone Number [email or web address] [place] [address] [place] [address], * (ABNORMAL) COMP METABOLIC PANEL (02/20/2025 12:51 PM CDT)ComponentValueRef RangeTest MethodAnalysis TimePerformed AtPathologist NwvbcxeceRFHMBZ026346 - 146 mmol/L1 4:00 AM Manads LLCTzEconomy DIAGNOSTICSPOTASSIUM4.43.5 - 5.3 mmol/L 02/21/2025 4:00 AM [employer]ads [employer] DKFPLJKOJBWSUJPUYUR94(L)98 - 110 mmol/L1 4:00 AM Manads LLCT[employer] DIAGNOSTICSCARBON RKZOBUH3554 - 32 mmol/L1 4:00 AM [employer]ads [employer] CMVYOUQDKRAUKJKMZG173(H)65 - 99 mg/dL02/21/2025 4:00 AM Manads LLCTQUEST DIAGNOSTICSComment: ? Fasting reference interval For someone without known diabetes, a glucose value between 100 and 125 mg/dL is consistent with prediabetes and should be confirmed with a follow-up test. CALCIUM9.98.6 - 10.4 mg/dL02/21/2025 4:00 AM CDTQUEST DIAGNOSTICSCREATININE0.99 (H)0.60 - 0.95 mg/dL02/21/2025 4:00 AM Manads LLCTzEconomy DIAGNOSTICSBUN/CREATININE RATIO 23(H)6 - 22 (calc)02/21/2025 4:00 AM [employer]ads [employer] JYELHYFQEBRHRSP62(L)> OR = 60 mL/min/1.11q08902/21/2025 4:00 AM CDTQUEST DIAGNOSTICSALBUMIN3.93.6 - 5.1 g/dL 02/21/2025 4:00 AM CDTQUEST DIAGNOSTICSPROTEIN, TOTAL7.36.1 - 8.1 g/dL02/21/2025 4:00 AM CDTQUEST DIAGNOSTICSBILIRUBIN, TOTAL0.60.2 - 1.2 mg/dL02/21/2025 4:00 AM CDTQUEST DIAGNOSTICSALKALINE FBTXFQMKQTN7676 - 153 U/L1 4:00 AM CDT QUEST ICXJAYYZMXYQOO628 - 29 U/L1 4:00 AM CDTQUEST PSBABZJYTAVNUE1007 - 35 U/L1 4:00 AM CDTQUEST DIAGNOSTICSUREA NITROGEN (BUN)237 - 25 mg/dL 02/21/2025 4:00 AM CDTQUEST DIAGNOSTICSGLOBULIN3.41.9 - 3.7 g/dL (calc) 02/21/2025 4:00 AM CDTQUEST DIAGNOSTICSALBUMIN/GLOBULIN RATIO1.11.0 - 2.5 (calc) 02/21/2025 4:00 AM CDTQUEST DIAGNOSTICSSpecimen (Source)Anatomical Location / LateralityCollection Method / VolumeCollection TimeReceived TimeBloodBLOOD SPECIMEN / UnknownQuest Collect / Lexeyce0102/20/2025 12:51 PM CDT02/20/2025 12:52 PM CDT Narrative [facility] - 02/21/2025 4:00 AM CDT FASTING:UNKNOWN FASTING: UNKNOWN Authorizing ProviderResult TypeResult StatusAmy Rod Gibson NPCHEMISTRYFinal Result Performing OrganizationAddressCity/State/ZIP CodePhone Number [facility] [address] [place] [address], * (ABNORMAL) XR DXA BONE DENSITY 2 SITES AXIAL (10/06/2021 1:53 PM CDT) Anatomical RegionLateralityModalitySpine, HIPS, HIPL, HIPROtherSpecimen (Source)Anatomical Location / LateralityCollection Method / VolumeCollection TimeReceived Time Impressions 10/08/2021 9:28 AM CDT Osteoporosis. RECOMMENDATIONS: [...] therapy initiated to assess therapeutic efficacy. Ameena Jeannajw TOWNSEND Narrative 10/08/2021 9:28 AM CDT For Patients: Results are automatically released to your [facility] ([facility]) account once available, in compliance with federal regulations. This means that you may see your results before your provider has had a chance to review them. Please allow 2-3 business days for your provider to comment on the results. XR DXA Bone Mineral Density (BMD) EXAM LOCATION: [address] [address] PATIENT NAME: Dolly Chau DATE OF : 1940 EXAM DATE: 10/06/2021 REQUESTING PROVIDER: Darleen Dacosta, GENDER AT : female HEIGHT: 5' 1 (07/15/2021) WEIGHT: ??156 lb 9.6 oz (10/03/2021) MENOPAUSAL STATUS: Postmenopausal [...] two scanners are made by the same javascript front end developer. PROCEDURE: Dual-energy x-ray absorptiometry performed with routine technique. Reporting is completed in the form of a T-score. The T-score represents the standard deviation from peak bone mass based on young healthy adult. A Z-score is used for diagnosis in premenopausal women, and for men under the age of 50. FINDINGS: RESULT LUMBAR SPINE L2 - L4 ??BMD: 0.8362 g/cm2 T-Score: - 3.0 Z-Score: - 1.4 Change from prior in 2016: ??Decrease 7.2%. RESULTS FEMUR Left femoral neck BMD: 0.706 g/cm2 T-Score: - 2.4 Z-Score: - 0.4 Change from prior in 2016: ??Decrease 4.6%. Right femoral neck BMD: 0.653 g/cm2 T-Score: - 2.8 Z-Score: - 0.7 Change from prior in 2016: ??Decrease 4.4%. Left hip BMD: 0.666 g/cm2 T-Score: - 2.7 Z-Score: - 0.8 Change from prior in 2016: ??Decrease 9.6%. Right hip BMD: 0.608 g/cm2 T-Score: - 3.2 Z-Score: - 1.3 Change from prior in 2016: ??Decrease 11.9%. WHO criteria: Normal: T-score at or above -1 SD Osteopenia: T-score between -1.1 and -2.4 SD Osteoporosis: T-score at or below -2.5 SD Authorizing ProviderResult TypeResult StatusTamara Beverley Detert DODEXAFinal Result from Last 3 Months or Most Recently Relevant [place] [address] Advance Directives TypeDate RecordedPatient RepresentativeExplanationHealthcare Directive10/09/2011 1:24 PMHEALTH CARE DIRECTIVE, [facility], 11/17/10Healthcare Directive 08/09/2007 * Full Code (Latest Code Status on File) Date ActivatedDate InactivatedComments09/01/2023 9:50 AM09/02/2023 2:34 AMQuestion AnswerCommentsCode Status Discussion:* Unable to Assess Preferences, Provider to review later * Full Code Date ActivatedDate InactivatedComments08/04/2023 9:18 AM08/04/2023 6:29 PMQuestion AnswerCommentsCode Status Discussion:* Not Discussed * Full Code Date ActivatedDate InactivatedComments07/15/2021 7:49 AM07/16/2021 5:05 PMQuestion AnswerCommentsCode Status Discussion:* Not Discussed * Full Code Date ActivatedDate InactivatedComments07/15/2021 5:59 AM07/15/2021 7:49 AMQuestion AnswerCommentsCode Status Discussion:* Reviewed Preferences * Full Code Date ActivatedDate XlsqpxixzitCdygvsqh69/8/2021 2:52 PM04/03/2021 7:26 PM QuestionAnswerCommentsCode Status Discussion:* Reviewed Preferences Care Teams Team MemberRelationshipSpecialtyStart DateEnd Darleen Dacosta DO [address] [place] [address] [facility]/23/15 Bk Sigala MD Surgery - Urology10/02/11 Yennifer Baird MD Ophthalmology Surgery11/22/12 Divya Dudley MD [address] [place] [address] OncologyHematology and Oncology12/06/19 Jessica Gibson, BRIANDA [address] [place] [address] OncologyNurse Practitioner - Family12/06/19
--- OUTSIDE RECORDS SUMMARY | 2025-05-12 08:04 | XMS_ITS | Clinical Summary ---
Author Organization [facility] [place] Address [address] [place] [address] Phone Care Team Providers Care Civil Drafter Name Role Phone Darleen Dacosta DO Primary Care Provider Allergies Active AllergyReactionsCriticalityNoted DateCommentsAlendronateOther (see comments)Rhnyzq4905/04/2008 Pelvic floor dysfunction PELVIC FLOOR PAIN Bee JttdvTejabixv62/02/2022 has done fine with bees in the past. Could have been a hornet. Medications MedicationSigDispense QuantityRefillsLast FilledStart DateEnd DateStatus acetaminophen (TYLENOL) 500 MG tablet Take 1,000 mg by mouth every 6 (six) hours if cjyiyl4104/29/2020Active Ascorbic Acid (Vitamin C) 500 MG capsule Take 500 mg by mouth in the morning.Active aspirin 81 MG chewable tablet Chew 81 mg in the morning.Active cholecalciferol (VITAMIN D-3 SUPER STRENGTH) 50 MCG (2000 UT) tablet Take 4,000 Units by mouth in the morning.01/22/2023ctive clopidogrel (PLAVIX) 75 MG tablet Take 1 tablet by mouth 1 (one) time each day12/17/2022ctive cyanocobalamin (VITAMIN B-12) 1000 MCG tablet Take 1,000 mcg by mouth in the morning.Active Docusate Sodium (DSS) 100 MG capsule Take 1 capsule by mouth 1 (one) time each day if neededActive EPINEPHrine (EPIPEN) 0.3 MG/0.3ML injection syringe Inject 1 Pen into the shoulder, thigh, or buttocks if kcocjq16/02/2022Active famotidine (PEPCID) 20 MG tablet Take 20 mg by mouth in the morning.05/13/2023ctive hydroCHLOROthiazide (MICROZIDE) 12.5 MG capsule Take 1 capsule by mouth 1 (one) time each dayActive ondansetron ODT (ZOFRAN-ODT) [address] 4 mg under the tongue if cfmxvo8705/21/2023ctive simvastatin (ZOCOR) 20 MG tablet Take 20 mg by mouth 1 (one) time each day in the ontqmdu3503/29/2023ctive vedolizumab (Entyvio) 300 MG injection Infuse 300 mg into a venous catheter every 2 akkhki9602/19/2023ctive hydroxyurea (HYDREA) 500 MG capsule Take by mouth 1 (one) time each day Take at the same time each day.Active Active Problems ProblemNoted DateDiagnosed DateCalculus of deaqxk12 Family History Medical HistoryRelationCommentsProstate cancerFatherStrokeMotherRelationStatus CommentsFatherDeceasedMotherDeceased Social History Tobacco UseTypesPacks/DayYears UsedDateSmoking Tobacco: NeverSmokeless Tobacco: Never Tobacco Cessation:Counseling Given: Not Answered Alcohol UseStandard Drinks/WeekCommentsNot Currently0 (1 standard drink = 0.6 oz pure alcohol)CommentsUnknownSex and Gender InformationValueDate Recorded Sex Assigned at BirthNot on fileLegal FjwBotheu78/21/2023 11:55 AM ESTGender IdentityNot on fileSexual OrientationNot on file Last Filed Vital Signs Vital SignReadingTime TakenCommentsBlood Uwskczbx368/8706/03/2023 12:48 PM [employer]IST [employer] Avyqm80913/11/2024 12:48 PM CSTTemperature--Respiratory Rate--Oxygen Saturation- -Inhaled Oxygen Concentration--Fpkeee16.8 kg (167 lb)06/03/2023 12:48 PM [employer] 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 [employer] Qriuri318.9 cm (5' 1)06/03/2023 12:48 PM CSTBody Mass Index31.55006/03/2023 12:48 PM [employer] Plan of Treatment Health MaintenanceDue DateLast DoneCommentsInfluenza Vaccine (#1)01/22/2025 02/23/2022, 02/05/2021, 02/14/2020, Additional history existsPneumococcal Vaccine: 50+ QjehnDllvelmzo02/28/2015, 08/30/2007Hepatitis B VaccineAged OutNo longer eligible based on patient's age to complete this topic Insurance * Guarantor: Vinicius Chau TypeRelation to PatientDate of BirthPhone Billing AddressPersonal/XnmyqnMzaw70/18/1941 [address] [place] [address] [place] [address] Care Teams Team MemberRelationshipSpecialtyStart DateEnd Date DeterDarleen mora DO [address] [place] [address] PCP - GeneralFamily Qyrtmmed89/21/23
[2025-05-12 08:08] VITALS: BP 135/82; PULSE 84; RESP 18; TEMP 36.3; O2SAT 98; BMI 30.7
--- NOTE | 2025-05-12 08:29 | CRLHL7_ITS ---
For Patients: As a result of the Cures Act, medical imaging exams and procedure reports are released immediately into your electronic medical record. You may view this report before your referring provider. If you have questions, please contact your health care provider. Indication: Lateral ulcer Technique: Left ankle 3 views. Comparison: None. Findings: Bones: No acute fracture or dislocation. Achilles insertional and plantar calcaneal enthesophyte. No evidence of erosions. Joint spaces: Joint spaces are well maintained. No degenerative changes. Soft tissues: Small ulceration along the lateral malleolus. Impression: Ulceration along the lateral malleolus without evidence of underlying erosion. Dictated by Alanna Cheney MD @ 05/12/2025 9:20:11 AM (Electronically Signed)
--- NOTE | 2025-05-12 08:30 | ED.GENADULT ---
HPI - General Adult General Chief complaint: Extremity Pain/Injury, Lower Stated complaint: sore on R ankle Time Seen by Provider: 05/12/25 08:22 History of Present Illness HPI narrative: Patient is a 4-year-old woman who inexplicably as developed a small ulceration on the lateral aspect of her left ankle. The ulceration is very superficial and is approximately 1 cm in diameter. She does have some surrounding erythema which is not improving although for the last several days she has been placing Bactroban on the wound. She has no history of fevers chills night sweats cough shortness of breath. She is able to bear weight without any difficulty the pain is minimal. Patient was told to come in and get an x-ray of things do not look right Related Data Home Medications ?Medication ?Instructions ?Recorded ?Confirmed ascorbic acid (vitamin C) 1,000 mg 1,000 mg PO DAILY 11/19/21 10/10/24 tablet aspirin 81 mg tablet,delayed 81 mg PO DAILY 11/19/21 10/10/24 release clopidogrel 75 mg tablet 75 mg PO DAILY 11/19/21 10/10/24 hydroxyurea 500 mg capsule 500 mg PO BID 11/19/21 10/10/24 simvastatin 20 mg tablet 20 mg PO HS 11/19/21 10/10/24 cholecalciferol (vitamin D3) 25 50 mcg PO DAILY 11/21/21 10/10/24 mcg (1,000 unit) capsule vitamin E (dl, acetate) 450 mg 450 mg PO DAILY 11/21/21 10/10/24 (1,000 unit) capsule hydrochlorothiazide 12.5 mg tablet 12.5 mg PO DAILY 06/08/22 10/10/24 acetaminophen 500 mg tablet 1,000 mg PO Q6H PRN 06/18/22 10/10/24 vitamin B complex (B 1 tab PO QDAY 07/02/22 10/10/24 Complex-Vitamin B12 tablet) omeprazole 20 mg capsule,delayed 20 mg PO DAILY 12/11/22 10/10/24 release Hemp seed oil - 4% lidocaine topical 09/25/24 10/10/24 ipratropium bromide 42 mcg (0.06 2 spray intranasal 3XD PRN 09/25/24 10/10/24 %) nasal spray ketoconazole 2 % shampoo topical 2XW 09/25/24 10/10/24 tamsulosin 0.4 mg capsule 0.4 mg PO QPM 09/25/24 10/10/24 infliximab IV 01/26/25 Previous Rx's ?Medication ?Instructions ?Recorded Walker- 2 Wheels #1 ea 12/25/21 amoxicillin 500 mg capsule 2,000 mg (4 x 500 mg) PO ONCE #4 12/11/24 caps Allergies Allergy/AdvReac Type Severity Reaction Status Date / Time alendronate sodium Allergy Severe severe Verified 10/10/24 10:47 aches bee venom protein (honey bee) Allergy Severe Swelling Verified 10/10/24 10:47 of Lip/Tongue/Throat Review of Systems Status of ROS: Reports: 10 or more systems reviewed and unremarkable except as noted in History and below [facility] Medical History History of urinary retention ?Z87.898 - Personal history of other specified conditions (ICD-10) Diarrhea ?R19.7 - Diarrhea, unspecified (ICD-10) Retention of urine ?R33.9 - Retention of urine, unspecified (ICD-10) Postoperative hemorrhage Nausea and vomiting ?R11.2 - Nausea with vomiting, unspecified (ICD-10) Left lower quadrant abdominal pain ?R10.32 - Left lower quadrant pain (ICD-10) Diverticulitis ?K57.92 - Diverticulitis of intestine, part unspecified, without perforation or abscess without bleeding (ICD-10) Dehydration ?E86.0 - Dehydration (ICD-10) Cerebrovascular disease ?I67.9 - Cerebrovascular disease, unspecified (ICD-10) Abdominal pain ?R10.9 - Unspecified abdominal pain (ICD-10) Osteoarthritis of hip ?M16.9 - Osteoarthritis of hip, unspecified (ICD-10) Pelvic floor dysfunction in female ?M62.89 - Other specified disorders of muscle (ICD-10) 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 - Genetic susceptibility to other disease (ICD-10) Macrocytosis without anemia ?D75.89 - Other specified diseases of blood and blood-forming organs (ICD-10) Colitis ?K52.9 - Noninfective gastroenteritis and colitis, unspecified (ICD-10) Osteoarthritis of right knee ?M17.11 - Unilateral primary osteoarthritis, right knee (ICD-10) Polycythemia vera ?D45 - Polycythemia vera (ICD-10) Osteoarthritis of right hip ?M16.11 - Unilateral primary osteoarthritis, right hip (ICD-10) Cancer ?C80.1 - Malignant (primary) neoplasm, unspecified (ICD-10) Arthritis ?M19.90 - Unspecified osteoarthritis, unspecified site (ICD-10) Neck problem ?R68.89 - Other general symptoms and signs (ICD-10) Back problem ?M53.9 - Dorsopathy, unspecified (ICD-10) Osteoporosis ?M81.0 - Age-related osteoporosis without current pathological fracture (ICD-10) Kidney problem ?N28.9 - Disorder of kidney and ureter, unspecified (ICD-10) IBS (irritable bowel syndrome) ?K58.9 - Irritable bowel syndrome without diarrhea (ICD-10) Elevated cholesterol ?E78.00 - Pure hypercholesterolemia, unspecified (ICD-10) High blood pressure ?I10 - Essential (primary) hypertension (ICD-10) Asthma ?J45.909 - Unspecified asthma, uncomplicated (ICD-10) History of cerebrovascular accident ?Z86.73 - Personal history of transient ischemic attack (TIA), and cerebral infarction without residual deficits (ICD-10) Acute left flank pain ?R10.9 - Unspecified abdominal pain (ICD-10) Surgical History 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) ?Z96.641 - Presence of right artificial hip joint (ICD-10) S/P arthroscopic partial lateral meniscectomy (11/12/21) ?Z98.890 - Other specified postprocedural states (ICD-10) Weakness of pelvic floor ?N81.89 - Other female genital prolapse (ICD-10) Bone spur ?M77.9 - Enthesopathy, unspecified (ICD-10) History of hysterectomy ?Z90.710 - Acquired absence of both cervix and uterus (ICD-10) Hx of breast biopsy ?Z98.890 - Other specified postprocedural states (ICD-10) Family History Family/Other Breast cancer Colorectal cancer Sister Ovarian cancer Father Prostate cancer Paternal Grandmother Diabetes Mother CHF (congestive heart failure) Stroke Family/Other Parkinson disease Alcohol dependence Social History Narrative: Marital Status: 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 EYES: No scleral icterus. LYMPH: No supraclavicular or cervical lymphadenopathy. SKIN: Visible skin seen during exam normal or with benign process only. EXT: Small superficial ulceration lateral left malleolus minimal surrounding erythema. HEART: Regular rate and rhythm with no murmurs, rubs, or gallops. LUNGS: Clear to auscultation bilaterally with no crackles or wheezes. ABD: Soft, non tender, non distended. PSYCH: Good eye contact, speech is not pressured. Const: Vital Signs, click to edit/add: Vital Signs - 24 hr 05/12/25 08:08 Temperature 97.3 F L Pulse Rate [Pulse Oximeter] 84 Respiratory Rate 18 Blood Pressure [Ri ght Upper Arm] 135/82 Pulse Oximetry 98 Oxygen Delivery Me thod Room Air Course Course ED Course: Patient seen and examined. X-ray pending. Vital Signs Vital signs: Initial Vital Signs Temperature 97.3 F L 05/12/25 08:08 Temperature Source Temporal Artery Scan 05/12/25 08:08 Pulse Rate 84 05/12/25 08:08 Respiratory Rate 18 05/12/25 08:08 Blood Pressure 135/82 05/12/25 08:08 Blood Pressure Mean 99 05/12/25 08:08 Blood Pressure Position Supine 05/12/25 08:08 Pulse Oximetry 98 05/12/25 08:08 Oxygen Delivery Method Room Air 05/12/25 08:08 Vital Signs Temperature 97.3 F L 05/12/25 08:08 Pulse Rate 84 05/12/25 08:08 Respiratory Rate 18 05/12/25 08:08 Blood Pressure 135/82 05/12/25 08:08 Pulse Oximetry 98 05/12/25 08:08 Oxygen Delivery Method Room Air 05/12/25 08:08 Temperature 97.3 F L 05/12/25 08:08 Pulse Rate 84 05/12/25 08:08 Respiratory Rate 18 05/12/25 08:08 Blood Pressure 135/82 05/12/25 08:08 Pulse Oximetry 98 05/12/25 08:08 Oxygen Delivery Method Room Air 05/12/25 08:08 Medical Decision Making MDM Narrative Medical decision making narrative: Patient is an 84-year-old woman who presents with a small ulceration lateral aspect of her left ankle. X-ray series shows no obvious bony involvement. She does have some surrounding erythema is treating the ulceration with Bactroban. I do think it is reasonable to treat her with a week of Keflex and I did make those arrangements. She will otherwise continue current care and follow-up with her primary physician as scheduled. Discharge Plan Discharge Clinical Impression: Leg ulcer Patient Disposition: Home, Self-Care Condition: Stable Additional Instructions: Leg elevation Continue topical Bactroban as previous Continue current medications. Keflex 500 mg 3 times a day for 7 days. Follow-up with your doctor in the next week to reassess. Activity Level: No Restrictions Discharge Diet: Regular Prescriptions: No Action omeprazole 20 mg capsule,delayed release(DR/EC) 20 mg PO DAILY simvastatin 20 mg tablet 20 mg PO HS aspirin 81 mg tablet,delayed release (DR/EC) 81 mg PO DAILY clopidogrel 75 mg tablet 75 mg PO DAILY hydroxyurea 500 mg capsule 500 mg PO BID ascorbic acid (vitamin C) 1,000 mg tablet 1,000 mg PO DAILY cholecalciferol (vitamin D3) 25 mcg (1,000 unit) capsule 50 mcg PO DAILY vitamin E (dl, acetate) 450 mg (1,000 unit) capsule 450 mg PO DAILY (DME) Walker- 2 Wheels Misc See Rx Instructions .Route Qty: 1 0RF Rx Instructions: As directed vitamin B complex [B Complex-Vitamin B12] Tablet 1 tab PO QDAY tamsulosin 0.4 mg capsule 0.4 mg PO QPM ipratropium bromide 42 mcg (0.06 %) spray,non-aerosol 2 spray intranasal 3XD PRN ketoconazole 2 % shampoo topical 2XW Hemp seed oil - 4% lidocaine topical hydrochlorothiazide 12.5 mg tablet 12.5 mg PO DAILY acetaminophen 500 mg tablet 1,000 mg PO Q6H PRN infliximab [Remicade] IV amoxicillin 500 mg capsule 2,000 mg PO ONCE Qty: 4 3RF Rx Instructions: Take 4 capsules orally 1 hour prior to dental appointment Follow Up/Referrals: Darleen Dacosta DO [Primary Care Provider, Family Practice] Stand Alone Forms: MyHealth Info Instructions
--- OUTSIDE RECORDS SUMMARY | 2025-05-12 09:07 | XMS_ITS | CCD ---
Author Name Interface, [id number] lity Address [address] [place] [address] [address] [address] 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 0123 POLYCYTHEMIA VERA - ALISE CORBYT, DO Medications Date Name Route Dose Frequency Instructions Start Date End Date Status Fill Status Indication 12/04/2019 Ascorbic Acid Oral PO 1.0 tablet daily dwkzvtor49/13/2020Docusate Sodium OralPO1.0 capsulePRNfor constipationactive 12/04/2019Ferrous Sulfate OralPO1.0 rdjymubampopvjucd68/13/2020Tamsulosin OralPO 1.0 mfmvcnrotcmbvapzwf25/13/2020Hydrochlorothiazide OralPO1.0 capsuledailyactive 12/04/2019Vitamin E Yxsvuqljch38/13/2020Clopidogrel OralPO1.0 tabletdailyactive 12/04/2019Hydroxyurea OralPO1.0 aakwbllFAOnrugwi20/13/2020Aspirin OralPO1.0 argswepvnirennwjx53/13/2020Cholecalciferol OralPO1.0 capsuledailyactive 12/04/2019Simvastatin OralPO1.0 tabletdailyactive Problems Diagnosis Status Date of Diagnosis Resolution Date Polycythemia vera Active Social History Date Name Value 12/04/2019 Sex Female
--- OUTSIDE RECORDS SUMMARY | 2025-05-12 09:07 | XMS_ITS | CCD ---
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 0123 POLYCYTHEMIA VERA - ALISE CORBYT, DO Medications Date Name Route Dose Frequency Instructions Start Date End Date Status Fill Status Indication 12/04/2019 Ascorbic Acid Oral PO 1.0 tablet daily gpyeoqwb39/13/2020Docusate Sodium OralPO1.0 capsulePRNfor constipationactive 12/04/2019Ferrous Sulfate OralPO1.0 qlygxxhopfazphqka35/13/2020Tamsulosin OralPO 1.0 rbypwzrhjcweapjhji73/13/2020Hydrochlorothiazide OralPO1.0 capsuledailyactive 12/04/2019Vitamin E Alzcudvcuu96/13/2020Clopidogrel OralPO1.0 tabletdailyactive 12/04/2019Hydroxyurea OralPO1.0 hvijpatDPXqastvw70/13/2020Aspirin OralPO1.0 omgfxmludansolcsb92/13/2020Cholecalciferol OralPO1.0 capsuledailyactive 12/04/2019Simvastatin OralPO1.0 tabletdailyactive Problems Diagnosis Status Date of Diagnosis Resolution Date Polycythemia vera Active Social History Date Name Value 12/04/2019 Sex Female
== END 2025-05-12 09:34 | disposition home or self-care (01) ==
PROVIDERS: Emergency Provider Internal Medicine; PCP Family Medicine
DX: L97.319 Non-pressure chronic ulcer of right ankle with unspecified severity (principal)
CPT/HCPCS: 73610; 99283; 99284

== ENCOUNTER 2025-05-16 23:46 | Emergency (ER) | payer OTHER, SELFPAY ==
--- OUTSIDE RECORDS SUMMARY | 2021-06-24 04:01 | XMS_ITS | Continuity of Care Document ---
Author Organization [facility] Address [address] [address] [place] [address] Care Team Providers Care Travel Counselor Name Role Phone [place], [place] Unavailable Unav ailable Procedures Procedure Date Sigmoi Advance Directives Directive Yes / No Effective Date File Name No Information Encounters Encounter Description Practice Location Reason(s) For Visit Diagnoses Date Provider Providers Copied on Encounter [facility], [address] [address], [place], [place], [id number], [place] [facility] No Information [facility]. [address] [address], [place], [place], [id number], . tel:[phone] Family History Family Member Type Diagnosis Age At Onset No Information Payers Payer name Insurance type Covered republican ID Authoriza tion(s) [employer] Medicare Advantage CI [id number] Social History Type Description Quantity Date Captured Comments Sex Female Smoking Status No Information Chief Complaint And Reason For Visit No Information Reason For Referral Reason For Referral No Information History Of Present Illness Encounter Date Complaint History Of Prese nt Illness No Information Functional Status Date Functional Assessmen t No Information Instructions Date Instruction Additional Infor mation No Information Assessments Type Assessment Date No Information Patient Care Teams Name Effective Dates (start - stop) Status Members No Information
--- OUTSIDE RECORDS SUMMARY | 2025-03-14 09:45 | XMS_ITS ---
Author Organization [facility] Address [address] [place] [address] Care Team Providers Care Overhead Line Worker Name Role Phone None, No PCP Primary Care Provider Unavailabl e Heber Ventura Unavailable [phone] Heber Ventura Unavailable Unavailable REASON FOR VISIT Bladder Consult Encounters Encounter Location Date Provider Diagnosis [facility] [address] [place] [address] 03/14/2025 Heber Ventura Plan Of Treatment Next Appt Details Provider Name:Arlene Melagr, 0 05/30/2025 11:00:00 AM, [address] [place], [address], Provider Name:Arlene Melgar, 0 05/30/2025 11:00:00 AM, [address] [place], [address], Provider Name:Arlene Melgar, 0 06/06/2025 10:45:00 AM, [address] [place], [address], Provider Name:Arlene Melgar, 0 06/06/2025 10:45:00 AM, [address] [place], [address], Provider Name:Arlene Melgar, 0 06/13/2025 10:30:00 AM, [address] [place], [address], Provider Name:Arlene Melgar, 0 06/13/2025 10:30:00 AM, [address] [place], [address], Provider Name:Arlenebob Melgar, 0 06/20/2025 01:00:00 PM, [address], [place], [address], Provider Name:Arlene Melgar, 0 06/20/2025 01:00:00 PM, [address], [place], [address], Provider Name:Palu Velez, 06/28/2025 11:15:00 AM, [address], [place], [address], Provider Name:Arlene Melgar, 0 06/28/2025 11:15:00 AM, [address], [place], [address], Provider Name:Paul Velez, 07/05/2025 10:30:00 AM, [address], [place], [address], Provider Name:Arlene Ramón, 0 07/05/2025 10:30:00 AM, [address], [place], [address], Provider Name:Arlene Melgar, 0 07/11/2025 11:00:00 AM, [address], [place], [address], Provider Name:Arlene Ramón, 0 07/11/2025 11:00:00 AM, [address], [place], [address], Provider Name:Arlene Ramón, 0 07/18/2025 10:30:00 AM, [address], [place], [address], Provider Name:Arlene Ramón, 0 07/18/2025 10:30:00 AM, [address], [place], [address], Provider Name:Paul Velez, 07/24/2025 11:00:00 AM, [address], [place], [address], Provider Name:Arlene Melgar, 0 07/24/2025 11:00:00 AM, [address], [place], [address], Provider Name:Arlene Melgar, 0 08/01/2025 10:30:00 AM, [address], [place], [address], Provider Name:Arlene Melgar, 0 08/01/2025 10:30:00 AM, [address], [place], [address], Progress Notes * FRANKI LorypricillaDOB:[birth year] (84 yo F)Acc No.[id number]:03/14/2025 Patient:?Lory CHAUricia :?MIGDALIA GARZAOB:1940???Age:84 Y ???Sex:FemaleDate:03/14/2025Phone:[phone]:[address] [place] [id number]:No PCP None Subjective: * Chief Complaints: * 1 . Bladder Consult. 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
--- OUTSIDE RECORDS SUMMARY | 2025-03-14 09:45 | XMS_ITS ---
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 Name Role Phone None, No PCP Primary Care Provider Unavailabl e Heber Ventura Unavailable [phone] Heber Ventura Unavailable Unavailable REASON FOR VISIT Bladder Consult Encounters Encounter Location Date Provider Diagnosis [facility] [address] [place] [address] 03/14/2025 Heber Ventura Plan Of Treatment Next Appt Details Provider Name:Arlene Melgar, 0 05/30/2025 11:00:00 AM, [address] [place], [address], Provider Name:Arlene Melgar, 0 05/30/2025 11:00:00 AM, [address] [place], [address], Provider Name:Arlene Melgar, 0 06/06/2025 10:45:00 AM, [address] [place], [address], Provider Name:Arlene Melgar, 0 06/06/2025 10:45:00 AM, [address] [place], [address], Provider Name:Arlene Melgar, 0 06/13/2025 10:30:00 AM, [address] [place], [address], Provider Name:Arlene Melgar, 0 06/13/2025 10:30:00 AM, [address] [place], [address], Provider Name:Arlenebob Melgar, 0 06/20/2025 01:00:00 PM, [address], [place], [address], Provider Name:Arlene Melgar, 0 06/20/2025 01:00:00 PM, [address], [place], [address], Provider Name:Paul Velez, 06/28/2025 11:15:00 AM, [address], [place], [address], Provider Name:Arlene Melgar, 0 06/28/2025 11:15:00 AM, [address], [place], [address], Provider Name:Paul Velez, 07/05/2025 10:30:00 AM, [address], [place], [address], Provider Name:Arlene Ramón, 0 07/05/2025 10:30:00 AM, [address], [place], [address], Provider Name:Arlene Melgar, 0 07/11/2025 11:00:00 AM, [address], [place], [address], Provider Name:Arlene Ramón, 0 07/11/2025 11:00:00 AM, [address], [place], [address], Provider Name:Arlene Ramón, 0 07/18/2025 10:30:00 AM, [address], [place], [address], Provider Name:Arlene Ramón, 0 07/18/2025 10:30:00 AM, [address], [place], [address], Provider Name:Paul Velez, 07/24/2025 11:00:00 AM, [address], [place], [address], Provider Name:Arlene Melgar, 0 07/24/2025 11:00:00 AM, [address], [place], [address], Provider Name:Arlene Melgar, 0 08/01/2025 10:30:00 AM, [address], [place], [address], Provider Name:Arlene Melgar, 0 08/01/2025 10:30:00 AM, [address], [place], [address], Progress Notes * FRANKIDollyDOB:[birth year] (84 yo F)Acc No.[id number]:03/14/2025 Patient:?Lory CHAUricia :?MIGDALIA GARZAOB:1940???Age:84 Y ???Sex:FemaleDate:03/14/2025Phone:[phone]:[address] [place] [address]Pcp:No PCP None Subjective: * Chief Complaints: * 1 . Bladder Consult. * Medical History: Objective: * Vitals: Assessment: Plan: * Treatment: * Images: Billing Information: * Visit Code: * Procedure Codes: * Electronic signature of Heber Ventura MD on 05/17/2025 at 01:03 AM CSTSign off status: Pending * Provider: Wayne VENTURA MD Date: 1 Generated for Printing/Faxing/eTransmitting on:?05/17/2025 01:03 AM HOT TOP LINER
--- OUTSIDE RECORDS SUMMARY | 2025-04-26 08:33 | XMS_ITS | Continuity of Care Document ---
Author Organization [facility] Address [address] [address] [place] [address] Phone Care Team Providers Care Commission Specialist Name Role Phone Link Connor JURADO Unavailable Unavailable Allergies, Adverse Reactions, Alerts Substance Reaction Status Criticality alendronate sodium Active No Inform ation WARNIN allergy(ies) could not be collected because the type is not supported. Please contact the source practice for further details. Medications Medication Instructions Dosage Effective Dates (start - stop) Status Comments AVSOLA Administer Avsola 5 mg/kg every 8 weeks infuse by IV route - Active Linzess 72 mcg capsule take 1 capsule by oral route every day on an empty stomach at least 30 minutes before 1st meal of the day 72 MCG - Active Herbal Medications/Supplements unknown Estradiol cream twice weekly long-term for vaginal atorphy - Active Herbal Medications/Supplements unknown - Active Plavix 75 mg tablet take 1 tablet by oral route every day 75 MG - Active Plavix 75 mg tablet take 1 tablet by oral route every day 75 MG - Active calcium 200 mg (as calcium citrate 950 mg) tablet take 3 tablet by oral route every day 600 MG - Active ketoconazole 2 % topical cream apply by topical route every day to the affected area(s) 0.00 - Active AVSOLA Administer Avsola 5 mg/kg every 8 weeks infuse by IV route - Active AVSOLA Administer Avsola 5 mg/kg every 0, 2, and 6 weeks infuse by IV route - Active Remicade Administer Remicade 5 mg/kg every 0, 2, and 6 weeks infuse by IV route - Active Gemtesa 75 mg tablet take 1 tablet by oral route every day 75 MG - Active tamsulosin 0.4 mg capsule take 1 capsule by ORAL route every day 0.4 MG - Active famotidine 20 mg tablet take 1 tablet by oral route every day 20 MG - Active Vitamin C 1,000 mg tablet take 1 tablet by oral route every day 1 tablet - Active B12 Active 1,000 mcg chewable tablet take 1 tablet by oral route every day 1 tablet - Active vitamin E 670 mg (1,000 unit) capsule take 1 tablet by oral route every day 1 tablet - Active hydroxyurea 500 mg capsule take (20MG/KG ) by oral route every day 20 MG/KG - Active hydrochlorothiazide 12.5 mg capsule take 1 capsule by oral route every day 12.5 MG - Active simvastatin 20 mg tablet take 1 tablet b y oral route every day in the evening 20 MG - Active aspirin 81 mg chewable tablet chew 1 tablet by oral route every day 81 MG - Active Procedures Procedure Date Offic/outpt E&m Estab Moderate 25 Complex e/m visit add on Colonoscopy Flex; W/remov Les- 25 Colonoscopy Flex; W/bx 1/mx Level Iv-surg Path Gross/micro 25 Offic/outpt E&m Estab Low-mod 5 Routine Serum Collection Offic/outpt E&m Estab Low-mod 5 Sigmoidoscopy Flex; W/bx 1/mx 4 Level Iv-surg Path Gross/micro 24 Immunocytochemistry, Each Antibody Routine Serum Collection Offic/outpt E&m Estab Mod-hi 2 24 Routine Serum Collection Offic/outpt E&m Estab Low-mod 4 Offic/outpt E&m Estab Mod-hi 2 23 Iv Infus Therap/dx-by Phys; To 23 Entyvio - vedolizumab Offic/outpt E&m Estab Mod-hi 4 23 Routine Serum Collection Offic/outpt E&m Estab Mod-hi 2 23 Colonoscopy Flex; W/bx 1/mx Moderate sedation, initial 15 minutes Ju Offic/outpt E&m Estab Mod-hi 2 23 Offic/outpt E&m Estab Mod-hi 2 23 Offic/outpt E&m Estab Low-mod 2 CRS Charges Subsqt Hosp-da E&m Minr Compl 1 Init Hosp-da E&m Mod Severity 1 Colonoscopy Flex; W/bx /mx Advance Directives Directive Yes / No Effective Date File Name No Information Encounters Encounter Description Practice Location Reason(s) For Visit Diagnoses Date Provider Providers Copied on Encounter [facility], [address] [address], [place], [place], [id number], [place] tel:[phone] [facility] No Information 5 Link MD Ryan. [address] [place] [address], [id number], [place]. tel:[phone] [facility], [address] [address], [place], [id number], [place] tel:[phone] [facility] No Information 5 Link MD Ryan. [address] [place] [address] [place], [place], [id number], [place]. tel:[phone] Offic/outpt E&m Estab Moderate [facility], [address] [address], [place], [id number], [place] tel:[phone] [facility] GI Symptoms or Concerns (chief complaint) Left sided colitis without complications Chronic constipation 0 5 Link MD Ryan. [address] [facility], [facility] [place], [place], [id number], [place]. tel:[phone] Referring Provider: Referral Self, USE FOR SELF REFERRALS. [facility] ELENA, [address] [address], [place], [address], [place] tel:[phone] [facility] No Information 5 Levon Sanders. [address] [facility], [facility] [address], [place], [id number], [place]. tel:[phone] [facility], [address] [address], [place], [id number], [place] tel:[phone] [facility] Left sided colitis without complications Colorectal polyp detected on colonoscopyDi verticulosis of colonInternal hemorrhoidsBe nign neoplasm of descending colon 5 Link MD Ryan. [address] [facility], [facility] [address], [address], [place]. tel:[phone] Referring Provider: Referral Self, USE FOR SELF REFERRALS. [facility], [address] [address], [place], [address], [place] tel:[phone] [facility] No Information 5 Link MD Ryan. [address] [facility], [facility] [address], [place], [id number], [place]. tel:[phone] Offic/outpt E&m Estab Low-mod [facility], [address] [address], [place], [address], [place] tel:[phone] [facility] GI Symptoms or Concerns (chief complaint) Left sided ulcerative colitis without complication 5 Link MD Ryan. [address] [facility], [facility] [address], [address], [place]. tel:[phone] Referring Provider: Referral Self, USE FOR SELF REFERRALS. Offic/outpt E&m Estab Low-mod [facility], [address] [address], [place], [address], [place] tel:[phone] [facility] GI Symptoms or Concerns (chief complaint) Left sided ulcerative colitis without complicationC onstipation, unspecified constipation type 5 Link MD Ryan. [address] [facility], [facility] [address], [place], [address], [place]. tel:[phone] Referring Provider: Referral Self, USE FOR SELF REFERRALS. [facility], [address] [address], [place], [address], [place] tel:[phone] [facility] No Information 5 Link MD Ryan. [address] [facility], [address], [id number], [place]. [phone] [facility], [address] [address], [place], [address], [place] tel:[phone] [place] [address] No Information 4 Link MD Ryan. [address] [facility], [facility] [address], [place], [address], [place]. tel:[phone] Referring Provider: Referral Self, USE FOR SELF REFERRALS. [facility], [address] [address], [place], [address], [place] tel:[phone] [facility] No Information 4 Link MD Ryan. [address] [facility], [facility] [address], [place], [address], [place]. tel:[phone] [facility], [address] [address], [place], [address], [place] tel:[phone] [facility] Left sided colitis without complications 4 Link MD Ryan. [address] [facility], [facility] [address], [place], [address], [place]. tel:[phone] [facility], [address] [address], [place], [address], [place] tel:[phone] [facility] Left sided colitis without complications Left sided colitis without complications 4 Link MD Ryan. [address] [place] [address], [address], [id number], [place]. tel:[phone] Referring Provider: Referral Self, USE FOR SELF REFERRALS. [facility], [address] [address], [place], [address], [place] tel:[phone] [place] [address] Left sided colitis without complications 4 Link MD Ryan. [address] [place] [address], [address], [id number], [place]. tel:[phone] Referring Provider: Referral Self, USE FOR SELF REFERRALS. [facility], [address] [address], [place], [address], [place] tel:[phone] [facility] Left sided colitis without complications 4 Link MD Ryan. [address] [place] [address], [id number], [place]. tel:[phone] Offic/outpt E&m Estab Mod-hi 2 [facility], [address] [address], [place], [address], [place] tel:[phone] [facility] GI Symptoms or Concerns (chief complaint) Left sided colitis without complications 4 Link MD Ryan. [address] [place] [address], [id number], [place]. tel:[phone] Referring Provider: Referral Self, USE FOR SELF REFERRALS. [facility], [address] [address], [place], [address], [place] tel:[phone] [facility] Left sided colitis without complications 4 Link MD Ryan. [address] [place] [address], [address], [id number], [place]. tel:[phone] [facility], [address] [address], [place], [address], [place] tel:[phone] [place] [address] Left sided colitis without complications 4 Link MD Ryan. [address] [place] [address], [address], [id number], [place]. tel:[phone] [facility], [address] [address], [place], [address], [place] tel:[phone] [facility] Diarrhea, unspecified type 4 Link MD Ryan. [address] [place] [address], [id number], [place]. tel:[phone] [facility], [address] [address], [place], [address], [place] tel:[phone] [facility] Left sided colitis without complications 4 Link MD Ryan. [address] [place] [address], [id number], [place]. tel:[phone] Offic/outpt E&m Estab Low-mod [facility], [address] [address], [place], [address], [place] tel:[phone] [facility] GI Symptoms or Concerns (chief complaint) Left sided colitis without complications 4 Link MD Ryan. [address] [place] [address], [id number], [place]. tel:[phone] Referring Provider: Referral Self, USE FOR SELF REFERRALS. Offic/outpt E&m Estab Mod-hi 2 [facility], [address] [address], [place], [address], [place] tel:[phone] [facility] GI Symptoms or Concerns (chief complaint) Left sided colitis without complications Heartburn 3 Link MD Ryan. [address] [place] [address], [id number], [place]. tel:[phone] Referring Provider: Referral Self, USE FOR SELF REFERRALS. [facility], [address] [address], [place], [address], [place] tel:[phone] [facility] No Information 3 Surya Ryan. [address], [id number], [place]. tel:[phone] [facility], [address] [address], [place], [address], [place] tel:[phone] [facility] Left sided colitis without complications 3 Supriya Jiménez. [address], [id number], [place]. tel:[phone] Referring Provider: Referral Self, USE FOR SELF REFERRALS. [facility], [address] [address], [place], [address], [place] tel:[phone] [facility] No Information 3 Levon Sanders. [address], [id number], [place]. tel:[phone] [facility], [address] [address], [place], [address], [place] tel:[phone] [facility] Left sided ulcerative (chronic) colitis 3 Surya Ryan. [address], [id number], [place]. tel:[phone] [facility], [address] [address], [place], [address], [place] tel:[phone] [facility] Left sided ulcerative (chronic) colitis 3 Surya Ryan. [address], [id number], [place]. tel:[phone] Offic/outpt E&m Estab Mod-hi 4 [facility], [address] [address], [place], [address], [place] tel:[phone] [facility] GI Symptoms or Concerns (chief complaint) Left sided ulcerative (chronic) colitis Sep-2 3 Surya Ryan. [address], [id number], [place]. tel:[phone] Referring Provider: Referral Self, USE FOR SELF REFERRALS. [facility], [address] [address], [place], [id number], [place] tel:[phone] [facility] No Information 3 Link MD Ryan. [address] [facility], [facility] [address], [place], [place], [address], [place]. tel:[phone] Offic/outpt E&m Estab Mod-hi 2 [facility], [address] [address], [place], [id number], [place] tel:[phone] [facility] GI Symptoms or Concerns (chief complaint) Left sided ulcerative (chronic) colitis 3 Link MD Ryan. [address] [facility], [facility] [address], [place], [place], [address], [place]. tel:[phone] Referring Provider: Referral Self, USE FOR SELF REFERRALS. [facility], [address] [address], [place], [id number], [place] tel:[phone] [facility] No Information 3 Link MD Ryan. [address] [facility], [facility] [address], [place], [place], [address], [place]. tel:[phone] Referring Provider: [place], [address] [place] [address], [place], [address] . tel:[phone] Offic/outpt E&m Estab Mod-hi 2 [facility], [address] [address], [place], [id number], [place] tel:[phone] [facility] Symptoms or Concerns (chief complaint) Diarrhea, unspecified typeAbnormal CT scan, colon 3 Link MD Ryan. [address] [facility], [facility] [address], [place], [place], [address], [place]. tel:[phone] Referring Provider: Referral Self, USE FOR SELF REFERRALS. [facility], [address] [address], [place], [id number], [place] tel:[phone] [facility] No Information 3 Link MD Ryan. [address] [place] [address], [id number], [place]. tel:[phone] [facility], [address] [address], [place], [address], [place] tel:[phone] [facility] Diarrhea, unspecified type 3 Link MD Ryan. [address] [place] [address], [id number], [place]. [phone] Offic/outpt E&m Estab Mod-hi 2 [facility], [address] [address], [place], [address], [place] tel:[phone] [facility] Comment (chief complaint) Diarrhea, unspecified typeLower abdominal pain Aug- 3 Link MD Ryan. [address] [place] [address], [id number], [place]. tel:[phone] Referring Provider: Referral Self, USE FOR SELF REFERRALS. Offic/outpt E&m Estab Low-mod [facility], [address] [address], [place], [address], [place] tel:[phone] [facility] GI Symptoms or Concerns (chief complaint) Ischemic colitis 2 Zach Massey. [address] [place] [address], [id number], [place]. tel:[phone] Referring Provider: Brittney Quiros DO, [address] [place] [address], [place], [address]. tel:[phone] [facility], [address] [address], [place], [address], [place] tel:[phone] [facility] No Information 2 Levon Sanders. [address] [place] [address], [address], [id number], [place]. tel:[phone] [facility], [address] [address], [place], [address], [place] tel:[phone] [facility] Diverticulosi sEncounter for other preprocedural examinationEn counter for other preprocedural examinationDv rtclos of intest, part unsp, w/o perf or abscess w/o bleed 2 No Information Referring Provider: Darleen Dacosta MD, [address] [place] [address], [address]. tel:[phone] [facility], [address] [address], [place], [place], [address], [place] tel:[phone] [facility] No Information 2 No Information Subsqt Hosp-da E&m Minr Compl [facility], [address] [address], [place], [place], [id number], [place] tel:[phone] [facility] No Information 1 No Information Referring Provider: Darleen Dacosta MD, [address] [facility], [place], [address]. tel:[phone] Init Hosp-da E&m Mod Severity [facility], [address] [address], [place], [place], [address], [place] tel:[phone] [facility] No Information Chad Perrin. [address] [place] [address], [place] [address], [place], [place], [id number], [place]. tel:[phone] Referring Provider: Aydin Pickard, [address] [place] [address], [place], [address] . tel:[phone] Family History Family Member Type Diagnosis Age At Onset Sister Problem Osteoporosis Father Problem Cancer, prostate Sister Problem Leukemia Mother Problem Stroke Immunizations Vaccine Date Status Comments SARS-COV-2 (COVID-19) vaccin e, mRNA, spike protein, LNP, preservative free, jasmyn-sucrose, 30 mcg/0.3 mL dose administered Note: [facility] bi-direct ional interface ; Source: Other Registry Influenza, adjuvanted, inactivated, trivalent, injectable, preservative free administered Note: [facility] bi-directional interface ; Source: Other Registry Respiratory syncytial virus (RSV), vaccine, bivalent, protein subunit RSV prefusion F, diluent reconstituted, 0.5 mL, preservative free administered Note: [facility] bi-direct ional interface ; Source: Other Registry Influenza, high-dose, split virus, trivalent, injectable, preservative free administered Note: [facility] bi-direct ional interface ; Source: Other Registry SARS-COV-2 (COVID-19) vaccin e, mRNA, spike protein, LNP, preservative free, 50 mcg/0.5 mL dose administered Note: [facility] bi-direct ional interface ; Source: Other Registry zoster vaccine recombinant administered N ote: [facility] bi-directional interface ; Source: Other Registry zoster vaccine recombinant administered N ote: [facility] bi-directional interface ; Source: Other Registry Influenza, high-dose, split virus, quadrivalent, injectable, preservative free administered Note: [facility] bi-direct ional interface ; Source: Other Registry influenza, high-dose seasona l, quadrivalent, 0.7mL dose, preservative free administered Note: [facility] bi-direct ional interface ; Source: Other Registry SARS-COV-2 (COVID-19) vaccin e, mRNA, spike protein, LNP, preservative free, 50 mcg/0.5 mL dose administered Note: [facility] bi-direct ional interface ; Source: Other Registry Influenza, adjuvanted, inactivated, quadrivalent, injectable, preservative free administered Note: [facility] bi-directional interface ; Source: Other Registry influenza, seasonal vaccine, quadrivalent, adjuvanted, 0.5mL dose, preservative free administered Note: [facility] bi-di rectional interface ; Source: Other Registry influenza, seasonal vaccine, quadrivalent, adjuvanted, .5mL dose, preservative free administered Note: [facility] bi-di rectional interface ; Source: Other Registry SARS-COV-2 (COVID-19) vaccin e, mRNA, spike protein, LNP, bivalent, preservative free, 50 mcg/0.5 mL or 25 mcg/0.25 mL dose administered Note: [facility] bi-direct ional interface ; Source: Other Registry SARS-COV-2 (COVID-19) vaccin e, mRNA, spike protein, LNP, bivalent booster, preservative free, 50 mcg/0.5 mL or 25 mcg/0.25 mL dose administered Note: [facility] bi-direct ional interface ; Source: Other Registry SARS-COV-2 (COVID-19) vaccin e, mRNA, spike protein, LNP, preservative free, 30 mcg/0.3mL dose, jasmyn-sucrose formulation administered Note: [facility] C bi- directional interface ; Source: Other Registry SARS-COV-2 (COVID-19) vaccin e, mRNA, spike protein, LNP, preservative free, 30 mcg/0.3mL dose administered Note: [facility] bi-direct ional interface ; Source: Other Registry Influenza, adjuvanted, inactivated, quadrivalent, injectable, preservative free administered Note: [facility] bi-directional interface ; Source: Other Registry influenza, seasonal vaccine, quadrivalent, adjuvanted, 0.5mL dose, preservative free administered Note: [facility] bi-di rectional interface ; Source: Other Registry influenza, seasonal vaccine, quadrivalent, adjuvanted, .5mL dose, preservative free administered Note: [facility] bi-di rectional interface ; Source: Other Registry SARS-COV-2 (COVID-19) vaccin e, mRNA, spike protein, LNP, preservative free, 30 mcg/0.3mL dose administered Note: [facility] bi-direct ional interface ; Source: Other Registry SARS-COV-2 (COVID-19) vaccin e, mRNA, spike protein, LNP, preservative free, 30 mcg/0.3mL dose administered Note: [facility] bi-direct ional interface ; Source: Other Registry Influenza, adjuvanted, inactivated, quadrivalent, injectable, preservative free administered Note: [facility] bi-directional interface ; Source: Other Registry influenza, seasonal vaccine, quadrivalent, adjuvanted, 0.5mL dose, preservative free administered Note: [facility] bi-di rectional interface ; Source: Other Registry influenza, seasonal vaccine, quadrivalent, adjuvanted, .5mL dose, preservative free administered Note: [facility] bi-di rectional interface ; Source: Other Registry tetanus and diphtheria toxoi ds, adsorbed, preservative free, for adult use (5 Lf of tetanus toxoid and 2 Lf of diphtheria toxoid) administered Note: [facility] bi-direct ional interface ; Source: Other Registry Influenza, adjuvanted, inactivated, trivalent, injectable, preservative free administered Note: [facility] bi-directional interface ; Source: Other Registry Seasonal trivalent influenza vaccine, adjuvanted, preservative free administered Note: [facility] bi-direct ional interface ; Source: Other Registry Influenza, adjuvanted, inactivated, trivalent, injectable, preservative free administered Note: [facility] bi-directional interface ; Source: Other Registry Seasonal trivalent influenza vaccine, adjuvanted, preservative free administered Note: [facility] bi-direct ional interface ; Source: Other Registry Influenza, high-dose, split virus, trivalent, injectable, preservative free administered Note: [facility] bi-direct ional interface ; Source: Other Registry influenza, high dose seasona l, preservative-free administered Note: [facility] bi-direct ional interface ; Source: Other Registry Afluria Qd [id number] administered Note: M [facility] bi-directional interface ; Source: Other Registry Prevnar 13 administered Note: [facility] bi-d irectional interface ; Source: Other Registry tetanus toxoid, reduced diphtheria toxoid, and acellular pertussis vaccine, adsorbed administered Note: [facility] b i-directional interface ; Source: Other Registry Influenza, split virus, trivalent, injectable, preservative free administered Note: [facility] bi-direct ional interface ; Source: Other Registry Influenza, seasonal, injecta ble, preservative free administered Note: [facility] bi-direct ional interface ; Source: Other Registry Influenza, split virus, trivalent, injectable, contains preservative administered Note: [facility] bi-direct ional interface ; Source: Other Registry Influenza, seasonal, injectable administe red Note: [facility] bi- directional interface ; Source: Other Registry Afluria Qd administered Note: M [facility] bi-directional interface ; Source: Other Registry Novel [id number], all formulations administered Note: [facility] bi-direct ional interface ; Source: Other Registry Influenza, split virus, trivalent, injectable, contains preservative administered Note: [facility] bi-direct ional interface ; Source: Other Registry Influenza, seasonal, injectable administe red Note: [facility] bi- directional interface ; Source: Other Registry Influenza, split virus, trivalent, injectable, contains preservative administered Note: [facility] bi-direct ional interface ; Source: Other Registry Influenza, seasonal, injectable administe red Note: [facility] bi- directional interface ; Source: Other Registry Pneumovax 23 administered Note: [facility] bi-d irectional interface ; Source: Other Registry zoster vaccine, live administered Note: [facility] bi-directional interface ; Source: Other Registry Influenza, split virus, trivalent, injectable, contains preservative administered Note: [facility] bi-direct ional interface ; Source: Other Registry Influenza, seasonal, injectable administe red Note: [facility] bi- directional interface ; Source: Other Registry Payers Payer name Insurance type Covered constitution party ID Authoriza tion(s) [facility] Advantage CI [id number] Social History Type Description Quantity Date Captured Comments Alcohol Use Details Unknown Caffeine Use Details Unknown Tobacco Use Status No Information Smoking Status No Information Sex Female Chief Complaint And Reason For Visit No Information Reason For Referral Reason For Referral No Information Plan Of Treatment Date Type Action Status Goal Dermatology - Skin Screening . Due on due Goal Herpes Zoster - Shingrix (2n d) due Goal Colonoscopy. Due on due Goal Influenza. Due on due Goal Tdap. Due on due Goal Vitamin D, 25-Hydroxy. Due o n due Goal Herpes Zoster - Shingrix (1s t) due Goal Prevnar 20. Due on due Goal Smoking status. Due on due Goal DEXA Bone Density Study. Due on due Goal Cervical PAP smear. Due on D due Goal Herpes Zoster - Shingrix (2n d) due Goal Prevnar 20. Due on due Goal Herpes Zoster - Shingrix (1s t) due Goal Dermatology - Skin Screening . Due on due Goal Influenza. Due on due Goal DEXA Bone Density Study. Due on due Goal Smoking status. Due on due Goal Colonoscopy. Due on due Goal Tdap. Due on due Goal Vitamin D, 25-Hydroxy. Due o n due Goal Cervical PAP smear. Due on N due Goal Herpes Zoster - Shingrix (1s t) due Goal Influenza. Due on due Goal Dermatology - Skin Screening . Due on due Goal Vitamin D, 25-Hydroxy. Due o n due Goal Herpes Zoster - Shingrix (2n d) due Goal Cervical PAP smear. Due on O due Goal Smoking status. Due on due Goal Tdap. Due on due Goal Colonoscopy. Due on due Goal DEXA Bone Density Study. Due on due Goal Prevnar 20. Due on due Goal Cervical PAP smear. Due on A due Goal Tdap. Due on due Goal Colonoscopy. Due on due Goal Smoking status. Due on due Goal Herpes Zoster - Shingrix (2n d) due Goal Vitamin D, 25-Hydroxy. Due o n due Goal DEXA Bone Density Study. Due on due Goal Influenza. Due on due Goal Prevnar 20. Due on due Goal Herpes Zoster - Shingrix (1s t) due Goal Dermatology - Skin Screening . Due on due Goal Tdap. Due on due Goal Herpes Zoster - Shingrix (1s t) due Goal Dermatology - Skin Screening . Due on due Goal Herpes Zoster - Shingrix (2n d) due Goal Cervical PAP smear. Due on A due Goal DEXA Bone Density Study. Due on due Goal Vitamin D, 25-Hydroxy. Due o n due Goal Colonoscopy. Due on due Goal Prevnar 20. Due on due Goal Smoking status. Due on due Goal Influenza. Due on due Goal Prevnar 20. Due on due Goal Cervical PAP smear. Due on due Goal Dermatology - Skin Screening . Due on due Goal Herpes Zoster - Shingrix (1s t) due Goal Herpes Zoster - Shingrix (2n d) due Goal Influenza. Due on due Goal Smoking status. Due on due Goal Tdap. Due on due Goal Vitamin D, 25-Hydroxy. Due o n due Goal DEXA Bone Density Study. Due on due Goal Vitamin D, 25-Hydroxy. Due o n due Goal Dermatology - Skin Screening . Due on due Goal Colonoscopy. Due on due Goal Smoking status. Due on due Goal Cervical PAP smear. Due on due Goal Prevnar 20. Due on due Goal Tdap. Due on due Goal DEXA Bone Density Study. Due on due Goal Herpes Zoster - Shingrix (1s t) due Goal Influenza. Due on due Goal Herpes Zoster - Shingrix (2n d) due Goal Tdap. Due on due Goal Colonoscopy. Due on due Goal Smoking status. Due on due Goal Cervical PAP smear. Due on due Goal Vitamin D, 25-Hydroxy. Due o n due Goal Prevnar 20. Due on due Goal Herpes Zoster - Shingrix (2n d) due Goal Herpes Zoster - Shingrix (1s t) due Goal Dermatology - Skin Screening . Due on due Goal Influenza. Due on due Goal DEXA Bone Density Study. Due on due Goal Vitamin D, 25-Hydroxy. Due o n due Goal Smoking status. Due on due Goal Herpes Zoster - Shingrix (2n d) due Goal Dermatology - Skin Screening . Due on due Goal Tdap. Due on due Goal Influenza. Due on due Goal Cervical PAP smear. Due on N due Goal Herpes Zoster - Shingrix (1s t) due Goal Colonoscopy. Due on due Goal Prevnar 20. Due on due Goal DEXA Bone Density Study. Due on due Goal DEXA Bone Density Study. Due on due Goal Influenza. Due on due Goal Vitamin D, 25-Hydroxy. Due o n due Goal Prevnar 20. Due on due Goal Smoking status. Due on due Goal Cervical PAP smear. Due on A due Goal Herpes Zoster - Shingrix (2n d) due Goal Colonoscopy. Due on due Goal Herpes Zoster - Shingrix (1s t) due Goal Tdap. Due on due Goal Dermatology - Skin Screening . Due on due Goal Cervical PAP smear. Due on A due Goal Dermatology - Skin Screening . Due on due Goal Herpes Zoster - Shingrix (1s t) due Goal Influenza. Due on due Goal Herpes Zoster - Shingrix (2n d) due Goal DEXA Bone Density Study. Due on due Goal Colonoscopy. Due on due Goal Vitamin D, 25-Hydroxy. Due o n due Goal Smoking status. Due on due Goal Prevnar 20. Due on due Goal Tdap. Due on due Goal Smoking status. Due on due Goal Colonoscopy. Due on due Goal Herpes Zoster - Shingrix (1s t) due Goal Dermatology - Skin Screening . Due on due Goal Vitamin D, 25-Hydroxy. Due o n due Goal Tdap. Due on due Goal Prevnar 20. Due on due Goal Herpes Zoster - Shingrix (2n d) due Goal DEXA Bone Density Study. Due on due Goal Cervical PAP smear. Due on A due Goal Influenza. Due on due Goal Cervical PAP smear. Due on A due Goal Influenza. Due on due Goal Smoking status. Due on due Goal Tdap. Due on due Goal DEXA Bone Density Study. Due on due Goal Prevnar 20. Due on due Goal Herpes Zoster - Shingrix (2n d) due Goal Herpes Zoster - Shingrix (1s t) due Goal Colonoscopy. Due on due Goal Dermatology - Skin Screening . Due on due Goal Vitamin D, 25-Hydroxy. Due o n due Goal Vitamin D, 25-Hydroxy. Due o n due Goal Colonoscopy. Due on due Goal Dermatology - Skin Screening . Due on due Goal DEXA Bone Density Study. Due on due Goal Smoking status. Due on due Goal Cervical PAP smear. Due on due Goal Herpes Zoster - Shingrix (1s t) due Goal Tdap. Due on due Goal Prevnar 20. Due on due Goal Influenza. Due on due Goal Herpes Zoster - Shingrix (2n d) due Goal DEXA Bone Density Study. Due on due Goal Smoking status. Due on due Goal Vitamin D, 25-Hydroxy. Due o n due Goal Influenza. Due on due Goal Colonoscopy. Due on due Goal Dermatology - Skin Screening . Due on due Goal Prevnar 20. Due on due Goal Tdap. Due on due Goal Cervical PAP smear. Due on due Goal Prevnar 20. Due on due Goal Smoking status. Due on due Goal Cervical PAP smear. Due on due Goal Influenza. Due on due Goal Colonoscopy. Due on due Goal DEXA Bone Density Study. Due on due Goal Tdap. Due on due Goal Dermatology - Skin Screening . Due on due Goal Vitamin D, 25-Hydroxy. Due o n due Referral Ordered: follow-up visit with Connor London MD 6 Months Appointment date/timeframe: 03/22/2025 [id number] Ordered: Flexible Sigmoidoscopy Appointment date/timeframe: 01/10/2024 [id number] Ordered: Vedolizumab and Anti-Vedolizumab Antibody Appointment date/timeframe: 01/04/2024 [id number] Ordered: Colonoscopy Appointment date/timeframe: 10/26/2022 [id number] Ordered: CT Abdomen And Pelvis WITH Contrast Appointment date/timeframe: 09/11/2022 ordered History Of Present Illness Encounter Date Complaint History Of Prese nt Illness GI Symptoms or Concerns Lory pres ents today for scheduled follow-up. She has a history of left-sided ulcerative colitis diagnosed in 2022. She was started on infliximab in the fall of 2023. She underwent a follow-up colonoscopy in August of this year which showed only inactive disease, and 1 small tubular adenoma. She has actually struggled with constipation since that time. She has tried taking MiraLAX on a daily basis. Unfortunately sometimes this makes her stool too loose or mushy. She did try using one half capful each day, however she continued to struggle. She reports that she generally has a small formed bowel movement in the morning. Later in the day she will often have an urge to have another bowel movement, but be unable to pass any stool. She generally does not feel that she is emptying out well.She does take fiber gummies on a regular basis, but notes that they cause increased gas and bloating.Last month she had a severe left lower quadrant pain. She went to the [facility], and was diagnosed with constipation. She did take a large amount of MiraLAX and cleanout, which helped her to feel better. GI Symptoms or Concerns I had a scheduled follow-up with Lory today. She was diagnosed with left-sided ulcerative colitis in 2022. She failed mesalamine, and was started on infliximab in January. At her last visit in May she was actually struggling with constipation, and we added MiraLAX.She continues to do well. She states that she has regular formed bowel movements with some constipation. She notes that she has not been taking the MiraLAX regularly, but rather using it as needed.About 6 days ago she had an episode of abdominal pain and diarrhea, which she treated with Pepto-Bismol. Her bowels then returned to normal. Outside of this she has not had abdominal pain or diarrhea, and she denies any blood in her stools. She denies any nausea, vomiting, decreased appetite, or weight loss. Overall she is very pleased with her symptom control. GI Symptoms or Concerns Ms. Natasha SofiaLoryJustice Chau is a 83 year old female who presents today for follow-up on chronic left-sided ulcerative colitis. Her past medical history is significant for osteoporosis, history of TIAs, and polycythemia vera. Ms. Chau notes that she is unsure if the Avsola is better than the Entyvio. She stopped Entyvio around December of 2023 due to increased antibody levels. She states she has been having around 3-10 bowel movements per day since that time. They range anywhere from hard stool to loose. She states she has been on the harder side more recently. She feels she has to strain and has had to express some of her stool. This week she took MiraLAX 2 days in a row. This caused her to have a day of flushing out her stool but she described that she felt better afterward with only two bowel movements the following day. She also notes that she has had increased hair loss. Her Medicare nurse thought it may be due to a combination of the Avsola and hydroxyurea she is taking for polycythemia vera. She denies any nausea, vomiting, weight loss, fever, chills, or bloody bowel movements. Surgical history:Her past surgical history is significant for a pelvic floor lift 10 to 15 years ago.Diagnostics:Flex Sig 01/10/2024: active colitis GI Symptoms or Concerns I had a follow up visit with Lory today. She was diagnosed with left-sided ulcerative colitis in 2022. She failed mesalamine and was started on Entyvio. She did very well for a while, however started experiencing symptoms in early October. Of note she was on multiple antibiotics for urinary tract infections, however has not been on any for about a month. Currently she describes frequent bowel movements, 4-10 per day. Her stools are soft and formed. She denies hard stools, loose or liquid stools. She does note significant urgency. She denies any blood in her stools. Occasionally she has a mild left-sided abdominal pain. She denies any nausea, vomiting, fevers, decreased appetite, or weight loss. She takes Metamucil gummies 3 per day. GI Symptoms or Concerns I had a follow up visit with Lory today. She was diagnosed with left-sided ulcerative colitis in the summer of 2022. She failed mesalamine and was started on Entyvio. Our last visit was in March, and at that time she was doing well, although she was still on the prednisone. Today Pat states she is doing extremely well from the standpoint of her colitis. She tapered off of the prednisone without difficulty. Currently she denies any loose or liquid stool. Her bigger issue at this point is some constipation. She states that she has 3-4 firm or hard bowel movements per day. Sometimes she will only pass a small amount. Sometimes she can have a normal regular bowel movement. She also notes increased gas. She denies any abdominal pain or blood in her stools. Her appetite is good and her weight is stable. GI Symptoms or Concerns Pat pres ents today for a scheduled follow-up of her colitis. She was last seen by myself at the end of January. At that time she continued to struggle with urgent diarrhea, up to 10 bowel movements per day. We therefore started her on Entyvio, and she has had 2 infusions. She has had significant improvement. She is having 1-3 formed bowel movements per day without urgency or abdominal pain. She denies any blood in her stools. She denies any nausea, vomiting, decreased appetite, or weight loss. She has had a new symptom of heartburn. She denies any dysphagia. She has been taking Pepcid complete, which does contain magnesium. GI Symptoms or Concerns Pat ents today for scheduled follow-up. She was diagnosed with ulcerative colitis in October. When she saw me at follow-up in November, she was doing well on prednisone. At that time we started mesalamine and weaned her off of the prednisone. Unfortunately, as she came down on the prednisone, her symptoms returned. I tried slowing the taper and adding Rowasa enemas. Initially she thought this helped, but speaking to her today she continues to have 6-10 bowel movements per day. She states that her stools are formed and not loose or liquid, but she does have significant urgency. She denies fevers, abdominal pain, nausea, vomiting, decreased appetite, or weight loss. GI Symptoms or Concerns Pat ents today for a scheduled follow- up. She was last seen by myself in the clinic in September. At that time she was having diarrhea with significant urgency, and some incontinence. She had colitis noted on CT scan, and therefore in October she underwent a colonoscopy. This showed inflammation from the rectum to the descending colon, consistent with left-sided ulcerative colitis. She was started on prednisone at that time. Since then she states she has been doing extremely well. She notes that she has formed bowel movements. In the morning she can have multiple bowel movements, as she states that she only passes a small amount of stool at a time. She does not have urgency or incontinence. She states that once her bowels are emptied, she can leave the house and do normal activities. She may or may not have an additional bowel movement in the afternoon. She denies any blood in her stool. Occasionally she has some left lower quadrant abdominal pain, but this occurs less than once a week. She denies any nausea, vomiting, decreased appetite, or weight loss. Overall she is very pleased with her result. Currently she is taking prednisone 20 milligrams per day. -2022 GI Symptoms or Concerns I had a scheduled follow-up with Lory today. She was last seen by myself in early August. At that time she was having trouble with abdominal pain, as well as urgent diarrhea and stool leakage. Because she has a history of difficulty with constipation, I was concerned about overflow diarrhea. She had previously been on Metamucil, and I did recommend that she resume this. She also has a history of ischemic colitis as well as diverticulitis. She had a colonoscopy in 2020 which was consistent with ischemic colitis. She had a subsequent sigmoidoscopy in 2021 which showed diverticulosis but normal mucosa. Because of her history of diverticulitis, I did recommend a repeat CT scan of the abdomen and pelvis. This was done in August without contrast, but it showed increased wall thickening of the distal colon from the anus to the mid left colon. She notes that she has had significant symptomatic improvement on the Metamucil. She is having 5-6 soft formed bowel movements per day. She notes that she generally has about 3 episodes in the morning, which are commonly associated with some urgency. She can have another 2-3 episodes the rest of the day, usually without urgency. She can have some incontinence with the urgent bowel movements. She is no longer having stool leakage in between bowel movements. She denies abdominal pain, blood in her stools, nausea, vomiting, or decreased appetite. She notes that she did have surgery on her pelvic floor previously, followed by physical therapy. She does not believe that she has had recent pelvic floor testing. Comment Lory presents to[facility] for evaluation of new onset abdominal pain and diarrhea.Previously, she has been seen in our clinic for constipation. She states that about 4 weeks ago, she was significantly constipated, and took 3-4 days of MiraLAX. She states that with this, she had 2 weeks of soft formed stools. However, about 2 weeks ago she began to have urgent liquid stools, with only small amounts of formed stool. She notes that she could go up to 15 times per day. She denies any blood in her stool.About 4 days ago, she began to experience significant lower abdominal pain. She states that initially this was quite severe, 10/10 in severity, and prevented her from doing normal activities. It has slowly improved, and today she rates it as 6 to 7/10.She denies any fevers. She has had some intermittent nausea, and states that she had 3 episodes of nonbloody vomiting yesterday. She has not had any vomiting today.Previously, she had been on regular Metamucil, although she s GI Symptoms or Concerns 81-year- old woman with history of chronic constipation and left-sided ischemic colitis, presents for consultation at the request of her primary care provider, Dr. Darleen Dacosta. She has been seen previously by my colleagues for hematochezia determined to be due to ischemic colitis. She had a colonoscopy on 04/02/2021 for these symptoms, and was found to have superficial ulceration involving the entire rectum and most of the sigmoid colon extending to 40 cm. The pathology results were consistent with ischemic colitis. More [facility]. She reports that she had a pelvic for lift a few months ago. She has had more regular bowel control since then, but still struggles with constipation on average. Flexible sigmoidoscopy and with Dr. Campbell on 06/24/2021 for hematochezia showed diverticulosis in the sigmoid colon, but was otherwise unremarkable. About 1 week ago she presented to [facility] Functional Status Date Functional Assessmen t No Information Instructions Date Instruction Additional Infor tyler Diverticulosis/Diverticulitis Re lated to Diverticulosis of colon Colon Polyps Related to Diver ticulosis of colon Colon Cancer Prevention Related to Diverticulosis of colon Hemorrhoids (Internal) Related t o Diverticulosis of colon High Fiber Diet Related to Diver ticulosis of colon It was great seeing you today!We discussed the following:-try taking Miralax daily and call me for an update in around 2 weeks.- if you are having significant diarrhea call me sooner. - we will plan to follow-up in 2 months.- continue with your Avsola infusions. Related to Left sided ulcerative colitis without complication Ischemic Colitis Related to Isch emic colitis Diverticulosis/Diverticulitis Re lated to Diverticulosis High Fiber Diet Related to Diver ticulosis Assessments Type Assessment Date No Information Patient Care Teams Name Effective Dates (start - stop) Status Members No Information
--- OUTSIDE RECORDS SUMMARY | 2025-05-08 07:45 | XMS_ITS ---
Author Organization [facility] Address [address] [place] [address] Care Team Providers Care Crane Mechanic Name Role Phone None, No PCP Primary Care Provider Unavailnoah e Heber Estevez Unavailable [phone] Heber Estevez Unavailable Unavailable Paul Velez Unavailable [phone] Encounters Encounter Location Date Provider Diagnosis [facility] [address] [place] [address] 05/08/2025 Paul Velez Plan Of Treatment Next Appt Details Provider Name:Arlene Melgar, 0 05/30/2025 11:00:00 AM, [address] [place], [address], Provider Name:Arlene Melgar, 0 05/30/2025 11:00:00 AM, [address] [place], [address], Provider Name:Arlene Melgar, 0 06/06/2025 10:45:00 AM, [address] [place], [address], Provider Name:Arlene Melgar, 0 06/06/2025 10:45:00 AM, [address] [place], [address], Provider Name:Arlene Melgar, 0 06/13/2025 10:30:00 AM, [address] [place], [address], Provider Name:Arlene Melgar, 0 06/13/2025 10:30:00 AM, [address], [place], [address], Provider Name:Arlene Ramón, 0 06/20/2025 01:00:00 PM, [address], [place], [address], Provider Name:Arlene Melgar, 0 06/20/2025 01:00:00 PM, [address], [place], [address], Provider Name:Paul Velez, 06/28/2025 11:15:00 AM, [address], [place], [address], Provider Name:Arlene Melgar, 0 06/28/2025 11:15:00 AM, [address], [place], [address], Provider Name:Paul Velez, 07/05/2025 10:30:00 AM, [address], [place], [address], Provider Name:Arlene Melgar, 0 07/05/2025 10:30:00 AM, [address], [place], [address], Provider Name:Arlene Melgar, 0 07/11/2025 11:00:00 AM, [address], [place], [address], Provider Name:Arlene Melgar, 0 07/11/2025 11:00:00 AM, [address], [place], [address], Provider Name:Arlene Melgar, 0 07/18/2025 10:30:00 AM, [address], [place], [address], Provider Name:Arlene Melgar, 0 07/18/2025 10:30:00 AM, [address], [place], [address], Provider Name:Paul Velez, 07/24/2025 11:00:00 AM, [address], [place], [address], Provider Name:Arlene Melgar, 0 07/24/2025 11:00:00 AM, [address], [place], [address], Provider Name:Arlene Melgar, 0 08/01/2025 10:30:00 AM, [address], [place], [address], Provider Name:Arlene Melgar, 0 08/01/2025 10:30:00 AM, [address], [place], [address], Progress Notes * Dolly CHAUDOB:[birth year] (84 yo F)Acc No.[id number]:05/08/2025 Patient:?Dolly CHAU :?Paul Velez SLADEDOB:1940???Age:84 Y ???Sex:FemaleDate:05/08/2025Phone:[phone]:[address] [place] [address]Pcp:No PCP None Subjective: * Chief Complaints: * * Medical History: Objective: * Vitals: Therapeutic Interventions: Assessment: Plan: * Treatment: * Images: Billing Information: * Visit Code: * Procedure Codes: * Electronic signature of Paul Velez on 05/17/2025 at 01:03 AM CSTSign off status: Pending * Provider: SLADE Huston Date: 07/09/2024 Generated for Printing/Faxing/eTransmitting on:?05/17/2025 01:03 AM 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
--- OUTSIDE RECORDS SUMMARY | 2025-05-08 07:45 | XMS_ITS ---
Author Organization [facility] Address [address] [place] [address] Care Team Providers Care Watch Dial Stoner Name Role Phone None, No PCP Primary Care Provider Unavailnoah e Heber Estevez Unavailable [phone] Heber Estevez Unavailable Unavailable Paul Velez Unavailable [phone] Encounters Encounter Location Date Provider Diagnosis [facility] [address] [place] [address] 05/08/2025 Paul Velez Plan Of Treatment Next Appt Details Provider Name:Arlene Melgar, 0 05/30/2025 11:00:00 AM, [address] [place], [address], Provider Name:Arlene Melgar, 0 05/30/2025 11:00:00 AM, [address] [place], [address], Provider Name:Arlene Melgar, 0 06/06/2025 10:45:00 AM, [address] [place], [address], Provider Name:Arlene Melgar, 0 06/06/2025 10:45:00 AM, [address] [place], [address], Provider Name:Arlene Melgar, 0 06/13/2025 10:30:00 AM, [address] [place], [address], Provider Name:Arlene Melgar, 0 06/13/2025 10:30:00 AM, [address], [place], [address], Provider Name:Arlene Ramón, 0 06/20/2025 01:00:00 PM, [address], [place], [address], Provider Name:Arlene Melgar, 0 06/20/2025 01:00:00 PM, [address], [place], [address], Provider Name:Paul Velez, 06/28/2025 11:15:00 AM, [address], [place], [address], Provider Name:Arlene Melgar, 0 06/28/2025 11:15:00 AM, [address], [place], [address], Provider Name:Paul Velez, 07/05/2025 10:30:00 AM, [address], [place], [address], Provider Name:Arlene Melgar, 0 07/05/2025 10:30:00 AM, [address], [place], [address], Provider Name:Arlene Melgar, 0 07/11/2025 11:00:00 AM, [address], [place], [address], Provider Name:Arlene Melgar, 0 07/11/2025 11:00:00 AM, [address], [place], [address], Provider Name:Arlene Melgar, 0 07/18/2025 10:30:00 AM, [address], [place], [address], Provider Name:Arlene Melgar, 0 07/18/2025 10:30:00 AM, [address], [place], [address], Provider Name:Paul Velez, 07/24/2025 11:00:00 AM, [address], [place], [address], Provider Name:Arlene Melgar, 0 07/24/2025 11:00:00 AM, [address], [place], [address], Provider Name:Arlene Melgar, 0 08/01/2025 10:30:00 AM, [address], [place], [address], Provider Name:Arlene Melgar, 0 08/01/2025 10:30:00 AM, [address], [place], [address], Progress Notes * Dolly CHAUDOB:[birth year] (84 yo F)Acc No.[id number]:05/08/2025 Patient:?Dolly CHAU :?Paul Velez SLADEDOB:1940???Age:84 Y ???Sex:FemaleDate:05/08/2025Phone:[phone]:[address] [place] [address]Pcp:No PCP None Subjective: * Chief Complaints: * * Medical History: Objective: * Vitals: Therapeutic Interventions: Assessment: Plan: * Treatment: * Images: Billing Information: * Visit Code: * Procedure Codes: * Electronic signature of Paul Velez on 05/16/2025 at 11:48 PM CSTSign off status: Pending * Provider: SLADE Huston Date: 07/09/2024 Generated for Printing/Faxing/eTransmitting on:?05/16/2025 11:48 PM EDITOR CONTINUITY AND SCRIPT
--- OUTSIDE RECORDS SUMMARY | 2025-05-08 07:45 | XMS_ITS ---
Author Organization [facility] Address [address] [place] [address] Care Team Providers Care Appeals Referee Name Role Phone None, No PCP Primary Care Provider Unavailnoah e Heber Estevez Unavailable [phone] Heber Estevez Unavailable Unavailable Paul Velez Unavailable [phone] Encounters Encounter Location Date Provider Diagnosis [facility] [address] [place] [address] 05/08/2025 Paul Velez Plan Of Treatment Next Appt Details Provider Name:Arlene Melgar, 0 05/30/2025 11:00:00 AM, [address] [place], [address], Provider Name:Arlene Melgar, 0 05/30/2025 11:00:00 AM, [address] [place], [address], Provider Name:Arlene Melgar, 0 06/06/2025 10:45:00 AM, [address] [place], [address], Provider Name:Arlene Melgar, 0 06/06/2025 10:45:00 AM, [address] [place], [address], Provider Name:Arlene Melgar, 0 06/13/2025 10:30:00 AM, [address] [place], [address], Provider Name:Arlene Melgar, 0 06/13/2025 10:30:00 AM, [address], [place], [address], Provider Name:Arlene Ramón, 0 06/20/2025 01:00:00 PM, [address], [place], [address], Provider Name:Arlene Melgar, 0 06/20/2025 01:00:00 PM, [address], [place], [address], Provider Name:Paul Velez, 06/28/2025 11:15:00 AM, [address], [place], [address], Provider Name:Arlene Melgar, 0 06/28/2025 11:15:00 AM, [address], [place], [address], Provider Name:Paul Velez, 07/05/2025 10:30:00 AM, [address], [place], [address], Provider Name:Arlene Melgar, 0 07/05/2025 10:30:00 AM, [address], [place], [address], Provider Name:Arlene Melgar, 0 07/11/2025 11:00:00 AM, [address], [place], [address], Provider Name:Arlene Melgar, 0 07/11/2025 11:00:00 AM, [address], [place], [address], Provider Name:Arlene Melgar, 0 07/18/2025 10:30:00 AM, [address], [place], [address], Provider Name:Arlene Melgar, 0 07/18/2025 10:30:00 AM, [address], [place], [address], Provider Name:Paul Velez, 07/24/2025 11:00:00 AM, [address], [place], [address], Provider Name:Arlene Melgar, 0 07/24/2025 11:00:00 AM, [address], [place], [address], Provider Name:Arlene Melgar, 0 08/01/2025 10:30:00 AM, [address], [place], [address], Provider Name:Arlene Melgar, 0 08/01/2025 10:30:00 AM, [address], [place], [address], Progress Notes * Dolly CHAUDOB:[birth year] (84 yo F)Acc No.[id number]:05/08/2025 Patient:?Dolly CHAU :?Paul Velez SLADEDOB:1940???Age:84 Y ???Sex:FemaleDate:05/08/2025Phone:[phone]:[address] [place] [address]Pcp:No PCP None Subjective: * Chief Complaints: * * Medical History: Objective: * Vitals: Therapeutic Interventions: Assessment: Plan: * Treatment: * Images: Billing Information: * Visit Code: * Procedure Codes: * Electronic signature of Paul Velez on 05/17/2025 at 01:04 AM CSTSign off status: Pending * Provider: SLADE Huston Date: 07/09/2024 Generated for Printing/Faxing/eTransmitting on:?05/17/2025 01:04 AM MANAGER WOMEN
--- OUTSIDE RECORDS SUMMARY | 2025-05-08 07:45 | XMS_ITS ---
Author Organization [facility] Address [address] [place] [address] Care Team Providers Care Clerical Proofreader Name Role Phone None, No PCP Primary Care Provider Unavailnoah e Heber Estevez Unavailable [phone] Heber Estevez Unavailable Unavailable Paul Velez Unavailable [phone] Encounters Encounter Location Date Provider Diagnosis [facility] [address] [place] [address] 05/08/2025 Paul Velez Plan Of Treatment Next Appt Details Provider Name:Arlene Melgar, 0 05/30/2025 11:00:00 AM, [address] [place], [address], Provider Name:Arlene Melgar, 0 05/30/2025 11:00:00 AM, [address] [place], [address], Provider Name:Arlene Melgar, 0 06/06/2025 10:45:00 AM, [address] [place], [address], Provider Name:Arlene Melgar, 0 06/06/2025 10:45:00 AM, [address] [place], [address], Provider Name:Arlene Melgar, 0 06/13/2025 10:30:00 AM, [address] [place], [address], Provider Name:Arlene Melgar, 0 06/13/2025 10:30:00 AM, [address], [place], [address], Provider Name:Arlene Ramón, 0 06/20/2025 01:00:00 PM, [address], [place], [address], Provider Name:Arlene Melgar, 0 06/20/2025 01:00:00 PM, [address], [place], [address], Provider Name:Paul Velez, 06/28/2025 11:15:00 AM, [address], [place], [address], Provider Name:Arlene Melgar, 0 06/28/2025 11:15:00 AM, [address], [place], [address], Provider Name:Paul Velez, 07/05/2025 10:30:00 AM, [address], [place], [address], Provider Name:Arlene Melgar, 0 07/05/2025 10:30:00 AM, [address], [place], [address], Provider Name:Arlene Melgar, 0 07/11/2025 11:00:00 AM, [address], [place], [address], Provider Name:Arlene Melgar, 0 07/11/2025 11:00:00 AM, [address], [place], [address], Provider Name:Arlene Melgar, 0 07/18/2025 10:30:00 AM, [address], [place], [address], Provider Name:Arlene Melgar, 0 07/18/2025 10:30:00 AM, [address], [place], [address], Provider Name:Paul Velez, 07/24/2025 11:00:00 AM, [address], [place], [address], Provider Name:Arlene Melgar, 0 07/24/2025 11:00:00 AM, [address], [place], [address], Provider Name:Arlene Melgar, 0 08/01/2025 10:30:00 AM, [address], [place], [address], Provider Name:Arlene Melgar, 0 08/01/2025 10:30:00 AM, [address], [place], [address], Progress Notes * Dolly CHAUDOB:[birth year] (84 yo F)Acc No.[id number]:05/08/2025 Patient:?Dolly HCAU :?Paul Velez SLADEDOB:1940???Age:84 Y ???Sex:FemaleDate:05/08/2025Phone:[phone]:[address] [place] [address]Pcp:No PCP None Subjective: * Chief Complaints: * * Medical History: Objective: * Vitals: Therapeutic Interventions: Assessment: Plan: * Treatment: * Images: Billing Information: * Visit Code: * Procedure Codes: * Electronic signature of Paul Velez on 05/16/2025 at 11:48 PM CSTSign off status: Pending * Provider: SLADE Huston Date: 07/09/2024 Generated for Printing/Faxing/eTransmitting on:?05/16/2025 11:48 PM 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
--- OUTSIDE RECORDS SUMMARY | 2025-05-09 10:30 | XMS_ITS ---
Author Organization [facility] Address [address] [place] [address] Care Team Providers Care Filler Mixer Name Role Phone None, No PCP Primary Care Provider Unavailabl e Bernabe Ventura Unavailable [phone] Bernabe Ventura Unavailable Unavailable Encounters Encounter Location Date Provider Diagnosis [facility] [address] [place] [address] 05/09/2025 Bernabe Ventura Plan Of Treatment Next Appt Details Provider Name:Arlene Melgar, 0 05/30/2025 11:00:00 AM, [address] [place], [address], Provider Name:Arlene Melgar, 0 05/30/2025 11:00:00 AM, [address] [place], [address], Provider Name:Arlene Melgar, 0 06/06/2025 10:45:00 AM, [address] [place], [address], Provider Name:Arlene Melgar, 0 06/06/2025 10:45:00 AM, [address] [place], [address], Provider Name:Arlene Melgar, 0 06/13/2025 10:30:00 AM, [address] [place], [address], Provider Name:Arlene Mlegar, 0 06/13/2025 10:30:00 AM, [address] [place], [address], Provider Name:Arlene Melgar, 0 06/20/2025 01:00:00 PM, [address], [place], [address], Provider Name:Arlene Melgar, 0 06/20/2025 01:00:00 PM, [address], [place], [address], Provider Name:Pual Velez, 06/28/2025 11:15:00 AM, [address], [place], [address], Provider Name:Arlene Melgar, 0 06/28/2025 11:15:00 AM, [address], [place], [address], Provider Name:Paul Velez, 07/05/2025 10:30:00 AM, [address], [place], [address], Provider Name:Arlene Melgar, 0 07/05/2025 10:30:00 AM, [address], [place], [address], Provider Name:Arlene Melgar, 0 07/11/2025 11:00:00 AM, [address], [place], [address], Provider Name:Arlene Melgar, 0 07/11/2025 11:00:00 AM, [address], [place], [address], Provider Name:Arlene Melgar, 0 07/18/2025 10:30:00 AM, [address], [place], [address], Provider Name:Arlene Melgar, 0 07/18/2025 10:30:00 AM, [address], [place], [address], Provider Name:Paul Velez, 07/24/2025 11:00:00 AM, [address], [place], [address], Provider Name:Arlene Melgar, 0 07/24/2025 11:00:00 AM, [address], [place], [address], Provider Name:Arlene Melgar, 0 08/01/2025 10:30:00 AM, [address], [place], [address], Provider Name:Arlene Melgar, 0 08/01/2025 10:30:00 AM, [address], [place], [address], Progress Notes * Dolly CHAUDOB:[birth year] (84 yo F)Acc No.[id number]:05/09/2025 Patient:?Dolly CHAU :?BERNABE VENTURA MDDOB:1940???Age:84 Y ???Sex:FemaleDate:05/09/2025Phone:[phone]:[address] [place], [place] [address]Pcp:No PCP None Subjective: * Chief Complaints: * * Medical History: Objective: * Vitals: Assessment: Plan: * Treatment: * Images: Billing Information: * Visit Code: * Procedure Codes: * Electronic signature of Bernabe Ventura MD on 05/17/2025 at 01:02 AM CSTSign off status: Pending * Provider: Wayne VENTURA MD Date: 07/10/2024 Generated for Printing/Faxing/eTransmitting on:?05/17/2025 01:02 AM 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
--- OUTSIDE RECORDS SUMMARY | 2025-05-09 10:30 | XMS_ITS ---
Author Organization [facility] Address [address] [place] [address] Care Team Providers Care Principal Strategist Name Role Phone None, No PCP Primary Care Provider Unavailabl e Bernabe Ventura Unavailable [phone] Bernabe Ventura Unavailable Unavailable Encounters Encounter Location Date Provider Diagnosis [facility] [address] [place] [address] 05/09/2025 Bernabe Ventura Plan Of Treatment Next Appt Details Provider Name:Arlene Melgar, 0 05/30/2025 11:00:00 AM, [address] [place], [address], Provider Name:Arlene Melgar, 0 05/30/2025 11:00:00 AM, [address] [place], [address], Provider Name:Arlene Melgar, 0 06/06/2025 10:45:00 AM, [address] [place], [address], Provider Name:Arlene Melgar, 0 06/06/2025 10:45:00 AM, [address] [place], [address], Provider Name:Arlene Melgar, 0 06/13/2025 10:30:00 AM, [address] [place], [address], Provider Name:Arlene Melgar, 0 06/13/2025 10:30:00 AM, [address] [place], [address], Provider Name:Arlene Melgar, 0 06/20/2025 01:00:00 PM, [address], [place], [address], Provider Name:Arlene Melgar, 0 06/20/2025 01:00:00 PM, [address], [place], [address], Provider Name:Paul Velez, 06/28/2025 11:15:00 AM, [address], [place], [address], Provider Name:Arlene Melgar, 0 06/28/2025 11:15:00 AM, [address], [place], [address], Provider Name:Paul Velez, 07/05/2025 10:30:00 AM, [address], [place], [address], Provider Name:Arlene Melgar, 0 07/05/2025 10:30:00 AM, [address], [place], [address], Provider Name:Arlene Melgar, 0 07/11/2025 11:00:00 AM, [address], [place], [address], Provider Name:Arlene Melgar, 0 07/11/2025 11:00:00 AM, [address], [place], [address], Provider Name:Arlene Melgar, 0 07/18/2025 10:30:00 AM, [address], [place], [address], Provider Name:Arlene Melgar, 0 07/18/2025 10:30:00 AM, [address], [place], [address], Provider Name:Paul Velez, 07/24/2025 11:00:00 AM, [address], [place], [address], Provider Name:Arlene Melgar, 0 07/24/2025 11:00:00 AM, [address], [place], [address], Provider Name:Arlene Melgar, 0 08/01/2025 10:30:00 AM, [address], [place], [address], Provider Name:Arlene Melgar, 0 08/01/2025 10:30:00 AM, [address], [place], [address], Progress Notes * Dolly CHAUDOB:[birth year] (84 yo F)Acc No.[id number]:05/09/2025 Patient:?Dolly CHAU :?BERNABE VENTURA MDDOB:1940???Age:84 Y ???Sex:FemaleDate:05/09/2025Phone:[phone]:[address] [place], [place] [id number]:No PCP None Subjective: * Chief Complaints: * * Medical History: Objective: * Vitals: Assessment: Plan: * Treatment: * Images: Billing Information: * Visit Code: * Procedure Codes: * Electronic signature of Bernabe Ventura MD on 05/16/2025 at 11:47 PM CSTSign off status: Pending * Provider: Wayne VENTURA MD Date: 07/10/2024 Generated for Printing/Faxing/eTransmitting on:?05/16/2025 11:47 PM [employer]
--- OUTSIDE RECORDS SUMMARY | 2025-05-16 23:47 | XMS_ITS | CCD ---
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 0123 POLYCYTHEMIA VERA - ALISE CORBYT, DO Medications Date Name Route Dose Frequency Instructions Start Date End Date Status Fill Status Indication 12/04/2019 Ascorbic Acid Oral PO 1.0 tablet daily /13/2020Docusate Sodium OralPO1.0 capsulePRNfor constipationactive 12/04/2019Ferrous Sulfate OralPO1.0 fyeldbzfezqtmdwgy50/13/2020Tamsulosin OralPO 1.0 qfemyytejebmqxoydl57/13/2020Hydrochlorothiazide OralPO1.0 capsuledailyactive 12/04/2019Vitamin E Zdsywhpsrs93/13/2020Clopidogrel OralPO1.0 tabletdailyactive 12/04/2019Hydroxyurea OralPO1.0 bzlgzifKMYfwejyi90/13/2020Aspirin OralPO1.0 ixsmwtjxnvslzkgiw44/13/2020Cholecalciferol OralPO1.0 capsuledailyactive 12/04/2019Simvastatin OralPO1.0 tabletdailyactive Problems Diagnosis Status Date of Diagnosis Resolution Date Polycythemia vera Active Social History Date Name Value 12/04/2019 Sex Female
--- OUTSIDE RECORDS SUMMARY | 2025-05-16 23:48 | XMS_ITS | Patient Health Record ---
Author Organization [facility] Address [address] [place] [address] Care Team Providers Care Bridge Toll Collector Name Role Phone None, No PCP Primary Care Provider UnavailHeber Mustafa Unavailable [phone] Heber Estevez Unavailable Unavailable Paul Velez Unavailable [phone] Allergies Allergen (clinical drug ingredient) Drug/Non Drug [...] DetectedNot DetectedKlebsiella aerogenesNot DetectedNot DetectedKlebsiella pneumoniaeNot DetectedNot Uenqrcfpshavebb-ppoo-uurjyiemd (blaNDM) ResistanceNot DetectedNot DetectedMethicillin/Oxacillin (mecA) ResistanceNot DetectedNot [...] a day; Duration: 90 days5ActiveTamsulosin HCl ActiveGemtesaActiveVitamin F79JjfbgtwtkbmULZGSXaiyiafosSprxxqZobgxwx 81Active FiberActiveCalcium CitrateActiveSimvastatinActiveHydroxyureaActive Social History Tobacco Use: Social History Observation Description Date Details (start date - stop date) Never Smoker NA - NA Tobacco Control (Standard) Question Answer Notes Tobacco use: Nonsmoker Problems Problem Type SNOMED Code ICD Code Onset Dates Problem Status W/U Status Risk Notes Problem Atrophy of vagina (795489047) Vaginal atr ophy (N95.2) Activeconfirmed Vital Signs Blood pressure diastolic 86 mm Hg 03/14/2025 marimar ght declined. Lmq, ccma Height 62 in 03/14/2025 weight declined . Lmq, ccma Blood pressure systolic 118 mm Hg 03/14/2025 weig ht declined. Lmq, ccma Encounters Encounter Location Date Provider Diagnosis [facility] [address] [id number] 03/15/2025 Heber Covina Dysuria R30.0 [facility] [address] [place] [address] 03/14/2025 Heber Covina Vaginal atrophy N95.2 ; PFD (pelvic floor dysfunction) M62.89 and Yeast infection B37.[address] [facility] [address] [place] [address] [facility] [place] [address] [place] [address]/ [facility] [id number]/[facility] [address] [place] [address]/[facility] [place] [address]/23/2025 Heber CovinaVaginal atrophy N95.2 and Yeast infection B37.9[facility] [place] [address]/[facility] Ass[facility] Encounter Date Diagnosis (ICD Code) Assessment Notes Treatment Notes Treatment Clinical Notes Section Notes 03/14/2025 Vaginal atrophy (ICD-10 - N95.2) 84 yo F [...] the care of the patient. We discussed [facility] diagnosis, treatment plans and care options/. 03/14/2025PFD (pelvic floor dysfunction) (ICD-10 - M62.89)03/15/2025Dysuria (ICD-10 - R30.0)03/15/2025Vaginal atrophy (ICD-10 - N95.2)03/14/2025east infection (ICD-10 - B37.9)03/15/2025east infection (ICD-10 - B37.9)03/14/2025 Other Plan Of Treatment Next Appt Details Provider Name:Arlene Melgar, 0 05/30/2025 11:00:00 AM, [address] [place], [address], Provider Name:Arlene Melgar, 0 05/30/2025 11:00:00 AM, [address], [place], [address], Provider Name:Arlene Melgar, 0 06/06/2025 10:45:00 AM, [address], [place], [address], Provider Name:Arlene Melgar, 0 06/06/2025 10:45:00 AM, [address], [place], [address], Provider Name:Arlenebob Melgar, 0 06/13/2025 10:30:00 AM, [address], [place], [address], Provider Name:Arlene Melgar, 0 06/13/2025 10:30:00 AM, [address], [place], [address], Provider Name:Arlene Ramón, 0 06/20/2025 01:00:00 PM, [address], [place], [address], Provider Name:Arlenebob Melgar, 0 06/20/2025 01:00:00 PM, [address], [place], [address], Provider Name:Paul Velez, 06/28/2025 11:15:00 AM, [address], [place], [address], Provider Name:Arlene Melgar, 0 06/28/2025 11:15:00 AM, [address], [place], [address], Provider Name:Paul Velez, 07/05/2025 10:30:00 AM, [address], [place], [address], Provider Name:Arlenebob Melgar, 0 07/05/2025 10:30:00 AM, [address], [place], [address], Provider Name:Arlene Melgar, 0 07/11/2025 11:00:00 AM, [address] [place], [address], Provider Name:Arlene Ramón, 0 07/11/2025 11:00:00 AM, [address] [place], [address], Provider Name:Arlene Melgar, 0 07/18/2025 10:30:00 AM, [address], [place], [address], Provider Name:Arlene Melgar, 0 07/18/2025 10:30:00 AM, [address] [place], [address], Provider Name:Paul Agustin, 07/24/2025 11:00:00 AM, [facility], [address], Provider Name:Arlene Melgar, 0 07/24/2025 11:00:00 AM, [address] [place], [address], Provider Name:Arlene Ramón, 0 08/01/2025 10:30:00 AM, [address] [place], [address], Provider Name:Arlene Melgar, 0 08/01/2025 10:30:00 AM, [address] [place], [address], Insurance Providers Payer Name Payer Address Payer Phone Subscriber Number Group Number Insured Name Patient Relationship to Insured Coverage Start Date Coverage End Date [employer] [address] (Ins. Bill) [address] [address] [place] [address] [id number], PatriciaSelf - patient is the insured Medical (General) History Medical History History ICD Code Polycythemia vera OsteoporosisBleeding problemsStrokeHigh CholesterolHeart Disease/AttackHigh Blood PressureChicken poxAsthma (as a child)ColitisSurgical History Surgery Date(Month/Year) Heel Spur Removal Total vaginal hysterectomy and BSOR Hip zgrinljwrce9938mtkbaq stones removed by cycpvocjlhg0885Lfjapgtbhxdbewh History Reason Date(Month/Year) childbirth
--- OUTSIDE RECORDS SUMMARY | 2025-05-16 23:48 | XMS_ITS | Clinical Summary ---
Author Organization [facility] Address [address] [place] [address] Phone Care Team Providers Care Squeezer Operator Name Role Phone Darleen Dacosta DO Primary Care Provider Allergies Active AllergyReactionsCriticalityNoted DateCommentsAlendronateOther (see comments)Kmtlow7405/04/2008 Pelvic floor dysfunction PELVIC FLOOR PAIN Bee KlkdnSsjfdsfk94/02/2022 has done fine with bees in the past. Could have been a hornet. Medications MedicationSigDispense QuantityRefillsLast FilledStart DateEnd DateStatus acetaminophen (TYLENOL) 500 MG tablet Take 1,000 mg by mouth every 6 (six) hours if yymakk9204/29/2020Active Ascorbic Acid (Vitamin C) 500 MG capsule [...] into the shoulder, thigh, or buttocks if /02/2022Active famotidine (PEPCID) 20 MG tablet Take 20 mg by mouth in the morning.05/13/2023ctive hydroCHLOROthiazide (MICROZIDE) 12.5 MG capsule Take 1 capsule by mouth 1 (one) time each dayActive ondansetron ODT (ZOFRAN-ODT) [address] 4 mg under the tongue if axnmhw3305/21/2023ctive simvastatin (ZOCOR) 20 MG tablet Take 20 mg by mouth 1 (one) time each day in the tpcygbs3203/29/2023ctive vedolizumab (Entyvio) 300 MG injection Infuse 300 mg into a venous catheter every 2 pcwads0202/19/2023ctive hydroxyurea (HYDREA) 500 MG capsule Take by mouth 1 (one) time each day Take at the same time each day.Active Active Problems ProblemNoted DateDiagnosed DateCalculus of nkqrmu05 Family History Medical HistoryRelationCommentsProstate cancerFatherStrokeMotherRelationStatus CommentsFatherDeceasedMotherDeceased Social History Tobacco UseTypesPacks/DayYears UsedDateSmoking Tobacco: NeverSmokeless Tobacco: Never Tobacco Cessation:Counseling Given: Not Answered Alcohol UseStandard Drinks/WeekCommentsNot Currently0 (1 standard drink = 0.6 oz pure alcohol)CommentsUnknownSex and Gender InformationValueDate Recorded Sex Assigned at BirthNot on fileLegal JhlKnuchh17/21/2023 11:55 AM ESTGender IdentityNot on fileSexual OrientationNot on file Last Filed Vital Signs Vital SignReadingTime TakenCommentsBlood Rcyrmdum328/8706/03/2023 12:48 PM CUSTOMS AND IMMIGRATION OFFICER Pybmy24738/11/2024 12:48 PM CSTTemperature--Respiratory Rate--Oxygen Saturation- -Inhaled Oxygen Concentration--Ocdzqp74.8 kg (167 lb)06/03/2023 12:48 PM C[employer] AND IMM[employer]RATION OFFICER Vkrbrw460.9 cm (5' 1)06/03/2023 12:48 PM CSTBody Mass Index31.55006/03/2023 12:48 PM C[employer]S AND IMM[employer]RATION OFFICER Plan of Treatment Health MaintenanceDue DateLast DoneCommentsInfluenza Vaccine (#1)01/22/2025 02/23/2022, 02/05/2021, 02/14/2020, Additional history existsPneumococcal Vaccine: 50+ CfryhNaggwqjwl10/28/2015, 08/30/2007Hepatitis B VaccineAged OutNo longer eligible based on patient's age to complete this topic Insurance * Guarantor: Vinicius Chau TypeRelation to PatientDate of BirthPhone Billing AddressPersonal/WunfssXpzq20/18/1941 [address] [place] [address] [place] [address] Care Teams Team MemberRelationshipSpecialtyStart DateEnd Date DeterDarleen mora DO [address] [place] [address] PCP - GeneralFamily Rehuzdgv40/21/23
--- OUTSIDE RECORDS SUMMARY | 2025-05-16 23:48 | XMS_ITS | Clinical Summary ---
Author Organization [facility] Address [facility] [place] [address] Care Team Providers Care Director Of Convention Services Name Role Phone Bk Sigala MD Unavailable [phone] Yennifer Baird MD Unavailable Darleen Dacosta DO Primary Care Provider [phone] Divya Dudley MD Unavailable Jessica Gibson NP Unavailable Allergies Active AllergyReactionsCriticalityNoted DateCommentsAlendronate SodiumOther - Describe In Comment PvkskLflash20/12/2008 PELVIC FLOOR PAIN Venom-Honey BeeAngioedema,Throat Swelling/OqigtsiVoif35/02/2022 has done fine with bees in the past. Could have been a hornet. Medications MedicationSigDispense QuantityRefillsLast FilledStart DateEnd DateStatus acetaminophen (TYLENOL EXTRA STRGTH) 500 mg tablet Take 1,000 mg by mouth every 6 hours if needed for Pain. Max acetaminophen dose: 4000mg in 24 hrs. Takes WNV76806/30/2019Active ascorbic acid, vitamin C, (VITAMIN C) 1,000 [...] area(s) three times daily. 22 g 5Active cephalexin 500 mg capsule Take 500 mg by mouth.5Active estradioL (ESTRACE) 0.01% (0.1 mg/g) vaginal cream USE DIRECTED VAGINALLY TWICE WEEKLYActive desonide 0.05 % ointment 5Active Active Problems ProblemNoted DateDiagnosed DateLeft sided colitis without complications 04/13/2024Sensorineural hearing loss, /09/2024Myelophthisic anemia 08/23/2023Osteoarthritis of left sacroiliac joint08/23/2023Ischemic colitis 08/23/2023Left sided ulcerative (chronic) ccinrwo7303/05/2023Left sided ulcerative tefhvcj1112/22/2022llergic reaction to insect bite03/24/2022nemia, macrocytic 03/24/2022alculus of left enzeml2403/24/2022Leukopenia due to antineoplastic sgbhzrujwokj68/01/2022 Assessment & Plan (09/28/2022 12:44 PM CDT): hydroxyurea for PCV. Darleen Dacosta D.O. 09/28/2022 12:44 PM Non-ST elevation (NSTEMI) myocardial abtbvwzmdf27/01/2022Osteoarthritis of right hip2S/P arthroscopic partial lateral jtadlqohyrwp79/01/2022Vision loss of left eye03/24/2022erebrovascular accident (CVA)03/24/2022MDS (myelodysplastic syndrome)12/15/2021History of osbpepcyyicxxjh11/25/2022 Overview (12/15/2021): Grade 3 rectal intussusception 2017 ?? Normocalcemic primary tbtpkpuasrzbhbqutuf83/16/2022Diverticular disease 3802Dnvufxfk43/08/1847Wsfbre79/08/2021bdominal pain03/31/2021 Pgwzvlvkxqsoxcx78/11/2020 Overview (02/02/2020): Component Latest Ref Rng & Units 10/20/2019 11/06/2019 11/15/2019 PLATELET COUNT 140 - 440 thou/cu mm 558 (H) 753 (H) 585 (H) Acute gastric ulcer without hemorrhage or qzygvmoifop25/01/2020 Overview (01/23/2020): EGD 12/2019 5 mm gastric ulcer secondary to aspirin, will use Pepcid since patient is on Plavix no follow-up upper endoscopy is needed Polycythemia vera12/07/2019History of nvpeab4212/27/2018Adrenal mass, right 01/06/2018 Overview (03/14/2018): suspected from adrenal hemorrhage while on plavix. follow up will be in March 2018 with endo andimaging. Okkdssnazezm17/12/2018Elevated /12/2018Diverticulosis of large intestine without vqesjvymsa36/12/2018 Overview (01/23/2020): Severe diverticular stricture, biopsies from the colon showed no microscopic colitis. No follow-up colonoscopy is needed given the severe diverticular stricture and no polyps found today Dpxjxtmuathx35/29/2017ACP (advance care planning)01/16/2014 Overview (01/16/2014): Has done living will. 10/09/2011 Bowel habit trfbnmk4401/16/2014Personal history of colonic cifnup8809/09/2011 Overview (01/23/2020): Colonoscopy 08/2011 diverticulosis repeat in 5 years Colonoscopy 10/2017 severe diverticular disease, 2 mm polyp, no follow up colonoscopy needed Severe diverticular stricture, biopsies from the colon showed no microscopic colitis. No follow-up colonoscopy is needed given the severe diverticular stricture and no polyps found today HTN (hypertension)04/01/2009Leukocytosis, qsiwgsovmtv05/16/2008 Overview (03/24/2022): In setting of ARF and renal stenting egcsvifref81/15/2008 Overview (02/13/2015): Previous use of actonel 3 years. Off a couple years and then decline. Resumed 2012 and will consider taking for 5 years. Roxanna Brambila M.D. 10/02/2011 11:00 AM History of kidney pyiodi5504/11/2007Irritable bowel yuucizqg52/19/2007 Overview (04/11/2007): collagenus colitis on colonoscopy in 1990, normal exams since then. Cystocele, midlineVaginal vault prolapse Resolved Problems ProblemNoted DateDiagnosed DateResolved DateLeft sided colitis, unspecified ledgrxdphwbx71/03/202203/cute ischemic yvprfbe59/05/2022Right hand pxknkyse35Acute UTIRight lateral abdominal pain/09/2023 Overview (01/06/2018): 2/2 adrenal hematoma vs hemorrhagic mass while on plavix Acute kidney failure, hkylammbtfy03 Overview (08/07/2007): Creatinine elevation to 2.9 after complicated right renal lithotripsy and stent placement. Nonspecific (abnormal) findings on radiological and other examination of genitourinary qesffy49 Overview (08/07/2007): Abnormal CT scan: right kidney enlargement, free air external to right ureter, stent in ureter. Nausea with glczsmlr04Other alteration of consciousness Encounters DateTypeDepartmentCare ZktuDwmzvlpdrco80/22/2025 10:40 AM CSTOffice Visit [facility] [address] [place] [address] Darleen Dacosta, ER Follow up (ulceration left ankle- has gotten swollen since yesterday/) 05/14/20251636Oyawlg10/20/2025Orders Only [facility] Scanner 1 scan: (1-Ord) [facility], XR ANKLE LT MIN 3V, 11:30 AM CSTOffice Visit [facility] [address] [place] [address] Anne Mccracken PA Derm Problem (sore on left ankle x 1 week, red and tender)05/10/2025Travel 04/20/2025 11:55 AM SKILLS INSTRUCTOR - 04/20/2025 11:59 PM CSTHospital Encounter [facility] [address] [place] [address] Connor London MD Left sided colitis without complications (HC) (Primary Dx)04/20/2025Travel 04/17/2025Orders Only [facility] [address] [place] [address] Connor London MD 1 scan: IV MEDICATION VYAAZU8104/12/2025Orders Only [facility] Scanner 1 scan: (1-Ord) [facility], F/U: NEOPLASM OF UNCERTAIN BEHAVIOR, Telephone [facility] [address] [place] [address] Zulay Ortiz RN Updated orders for hyiegehi51/09/2025Refill [facility] [address] [place] [address] KeenatDarleen, DO Refill Request (Hydrochlorothiazide, Hydroxyurea)03/28/2025Refill [facility] [address] [facility] [place] [address] DetertDarleen, DO Refill Request (Clopidogrel)03/18/2025Refill [facility] [address] [place] [address] DetertDarleen, DO Refill Request (Simvastatin)03/05/2025Orders Only [facility] Scanner 1 scan: (1-Ord) [facility], SHAVE BIOPSY LT SUPERIOR LATERAL MALAR CHEEK, Telephone [facility] [address] [place] [address] Oncology, [facility] Lihhyreakbp41/02/2025 1:00 PM CDTOffice Visit [facility] [address] [place] [address] Divya Dudley MD Follow Up (Polycythemia vera)02/22/2025 12:41 PM CDT - 02/22/2025 11:59 PM CDT Hospital Encounter [address] [address] Connor London MD Left sided colitis without complications (HC) (Primary Dx)02/22/2025Travel 02/21/2025 11:18 AM CDT - 02/21/2025 11:59 PM CDTHospital Encounter [facility] [place] [address] [place], [place] [id number] Gallo Potts MD Guist, Angela M, PT Pelvic pain (Primary Dx)02/20/2025 1:00 PM CDTOrders Only [facility] [address] [facility] [place] [address] Lab, [place] Lab02/20/20252612Nqhltx60/25/2025Telephone [facility] [address] [place] [address] KeenatDarleen DO Appointment (UROGYNECOLOGY )from Last 3 Months Immunizations ImmunizationAdministration DatesNext DueAMB INFLUENZA IIV3 (AGE 65+ YRS) PF (Flu Clinic Only)02/22/2018COVID-19 vaccine (Moderna 50mcg/0.5mL) 12YO+ BIVALENT PF, MDV2COVID-19 vaccine (Pfizer-BioNTech 30mcg/0.3mL) 12YO+ PATRICK-SUCROSE PF, MDV2COVID-19 vaccine (Pfizer-BioNTech 30mcg/0.3mL) PF, MDV 02/12/2021,07/27/2020,07/06/2020INFLUENZA, IIV3 PF (AGE >= 6 MO)04/22/2011 Influenza A (H1N1), Inactivated (Age >=3 Years)05/10/2009Influenza RIV4 (Age 18+ Years) PRESERV FREE03/25/2019Influenza, High-dose Uprekvsftwh42/14/2024, 02/17/2016Influenza, High-dose Quadrivalent Lruqcswxzaj46/22/2023Influenza, IIV3 (Age >=3 years)02/26/2014,03/03/2012,04/22/2011,02/24/2010,02/27/2009,03/19/2008 ,03/24/2007,04/03/2006Influenza, YBH461Influenza, Inactivated AIIV4 (Age 65+ Years) Preserv Free02/23/2022,02/05/2021,02/14/2020Influenza, Inactivated IIV3 (Age 65+ Years) Preserv Free01/29/2025,03/17/2017Pneumococcal Poly,23- Valent (Pneumovax)08/30/2007Pneumococcal conj 13-Valent (Prevnar 13)02/18/2015 RSV, Bivalent Vaccine Reconstituted (Abrysvo 120MCG/0.5mL)11/06/2024Td (Age >=7 Years)09/01/2019,05/24/2001Td, Preservative Free (age >= [...] = 0.6 oz pure alcohol)PHQ-2AnswerDate RecordedPHQ-2 TOTAL IYYZJ469Social Connections AnswerDate RecordedDo you often feel lonely or isolated from those around you?0 09/25/2024Financial Resource StrainAnswerDate RecordedDifficulty of Paying Living Cjhbdpzo192/05/2025Difficulty of Paying Living ExpensesNot on file 09/25/2024Food [...] InformationValueDate RecordedSex Assigned at BirthNot on fileLegal RaaDrmcyu79/14/2013 5:24 AM CSTGender Identity Not on fileSexual OrientationNot on fileOccupationIndustryJob Start DateJob End DateCLERKNot on fileNot on fileNot on file Obstetrics History GravidaParaTermPretermABIABSABEctopicMultipleLivingLive Srbeza50607BdtfGunxuxbLP Total LaborLabor/2nd/8tkRgsruuCdkOjjmBzfaCYAJskE0E4HlkzKgqpWjixAiytKmelXBM Last Filed Vital Signs Vital SignReadingTime TakenCommentsBlood Wzguhlpm148/7905/14/2025 10:45 AM SKILLS INSTRUCTOR Unbvi449205/14/2025 10:45 AM BINDatnbtpohjq52.9 ??C (98.4 ??F)04/20/2025 12:09 PM CSTRespiratory Zjio9821 12:09 PM CSTOxygen Lvohwoacky54%05/14/2025 10:45 AM CSTInhaled Oxygen Concentration--Wkusxb49.7 kg (169 lb)05/14/2025 10:45 AM KMIGyzxkg660 cm (5' 1.42)03/29/2024 11:17 AM CSTBody Mass Index31. 11:17 AM SKILLS INSTRUCTOR Plan of Treatment DateTypeDepartmentCare Team (Latest Contact Info)Dslbbgkcxnn49/26/2025 2:40 PM CSTOffice Visit [facility] [address] [place] [address] Darleen Dacosta DO [address] [facility] [place] [address] 06/07/2025 1:00 PM CSTOrders Only [facility] [address] [place] [address] [place] 06/14/2025 1:00 PM CSTAppointment [facility] [address] [place] [address] 06/14/2025 1:45 PM CSTOffice Visit [facility] [address] [place] [phone] Jessica Gibson, PCB DESIGN ENGINEER [address] [place] [address] Health MaintenanceDue DateLast DoneCommentsBMI (ht and wt on same day) for age 18+, 08/23/2023, 05/13/2023, Additional history exists Medicare Wellness for age 65+, 03/17/2017, 02/17/2016, Additional history existsDepression screening for age 12+/12/2023, 03/29/2024, 01/23/2022, Additional history existsCOVID-19 vaccine series (9 - Pfizer risk 2024- season)/, 02/09/2024, 03/02/2023, Additional history existsTetanus kzeozip91/02/2020, 09/01/2019, 10/02/2011, Additional history existsPneumococcal series for age 50+Completed 02/18/2015, 08/30/2007DEXA/DXA scan for age 65+Zfbmqsmns67/16/2022, 02/17/2016, 11/11/2012, Additional history existsZoster (shingles) series for age 50+ Kvsvegtsx15/07/2024, 09/15/2023, 04/11/2007RSV vaccine for adults or Ftykqeyvc68/06/2024Influenza NfkcsgaJkkqnaqpx45/08/2025, 03/06/2024, 02/23/2022, Additional history existsHepatitis B series for 19+Aged OutNo longer eligible based on patient's age to complete this topic Medical Devices ImplantedTypeAreaManufacturerDevice IdentifierShelf Expiration DateModel / Serial / LotStent Uret 4.1sqo73iw W/Tether - [id number] Implanted:Qty: 1 on 05/04/2008 at [facility]: [facility] [employer] Resources [id number]# / / [id number] Uret 4.6qof39wb Silhouette - [id number] Implanted:Qty: 1 on 12/28/2018 by [facility]BS [facility] UreterApplied Medical Resources [id number]# / / [id number] Pelvic 34x95fp Gynemesh - [id number] Implanted:Qty: 1 on 07/15/2021 [facility] Ethicon Womens H / Uro04/22/2026GPSXL3 / / RPBOQSStent Uret 4ddo86su Contour - [id number] Implanted:Qty: 1 on 08/04/2023 [facility] Fel[facility]: UreterBSC Aqemeqy29/22/[id number] / / [id number]oecobQbvxtw IdentifierShelf Expiration DateModel / Serial / LotPower Port Isp Mri 6fr [id number] - [id number] Implanted:Qty: 1 on 12/14/2019 by Nida Bello DO at [facility] Explanted:Qty: 1 on 07/17/2020 by [facility]: Subclavian VeinB[employer] [id number] / / [id number] Procedures Procedure NamePriorityDate/TimeAssociated DiagnosisCommentsSCAN-RADIOLOGY REPORT 05/12/2025 12:00 AM SKILLS INSTRUCTOR SCAN-OPERATIVE/PROCEDURE YCMAQB9704/12/2025 12:00 AM SKILLS INSTRUCTOR SCAN-OPERATIVE/PROCEDURE STHZFJ1103/05/2025 12:00 AM CDT CBC WITH AUTO VCCPUJUIJFNYEanoxee32/30/2025 12:51 PM CDT Polycythemia vera (HC) [D45] COMP METABOLIC WOJQQWwowpqk68/30/2025 12:51 PM CDT Polycythemia vera (HC) [D45] CBC WITH AUTO ORFRKZJCQPEERoyumpz27/30/2025 12:51 PM CDT Polycythemia vera (HC) [D45] XR DXA BONE DENSITY 2 SITES YKCNJBjyqujl52/16/2022 1:53 PM CDT Post-menopausal from Last 3 Months or Most Recently Relevant to Health Maintenance Results * SCAN-RADIOLOGY REPORT (05/12/2025 12:00 AM SKILLS INSTRUCTOR)Anatomical RegionLaterality ModalityOther Narrative Authorizing ProviderResult TypeResult StatusScannerOTHERFinal Result * SCAN-OPERATIVE/PROCEDURE REPORT (04/12/2025 12:00 AM SKILLS INSTRUCTOR) Narrative Authorizing ProviderResult TypeResult StatusScannerOTHERFinal Result * SCAN-OPERATIVE/PROCEDURE REPORT (03/05/2025 12:00 AM CDT) Narrative Authorizing ProviderResult TypeResult StatusScannerOTHERFinal Result * (ABNORMAL) CBC WITH AUTO DIFFERENTIAL (02/20/2025 12:51 PM CDT)ComponentValue Ref RangeTest MethodAnalysis TimePerformed AtPathologist SignatureWHITE BLOOD CELL COUNT4.03.8 - 10.8 Thousand/uL02/21/2025 4:32 AM CDTQUEST DIAGNOSTICSRED BLOOD CELL COUNT3.06(L)3.80 - 5.10 Million/uL02/21/2025 4:32 AM CDTQUEST MVIVYQCNHIDCQGXYEHUSU55.211.7 - 15.5 g/dL02/21/2025 4:32 AM CDTQUEST HVGXQBWYWGLPQOLXVRCUX38.935.0 - 45.0 %02/21/2025 4:32 AM CDT[facility] QOO890.6(H)80.0 - 100.0 fL02/21/2025 4:32 AM CDTQUEST ZNLKYTPNOIZUWU80.9(H) 27.0 - 33.0 pg02/21/2025 4:32 AM CDTQUEST IJZRVXHDJBSWQSS30.132.0 - 36.0 g/dL 02/21/2025 4:32 AM CDTQUEST DIAGNOSTICSComment: For adults, a slight decrease in the calculated MCHC value (in the range of 30 to 32 g/dL) is most likely not clinically significant; however, it should be interpreted with caution in correlation with other red cell parameters and the patient's clinical condition. RDW14.311.0 - 15.0 %02/21/2025 4:32 AM CDTQUEST DIAGNOSTICSPLATELET YTELQ563684 - 400 Thousand/uL02/21/2025 4:32 AM CDTQUEST HJFOSPSCGMMXHE78.27.5 - 12.5 fL 02/21/2025 4:32 AM CDTQUEST NSVIUYFXUHKJININDVUNFU16.7%02/21/2025 4:32 AM CDT [facility]ST FAXHULQUDBRKKMXOKZIFND64.0%02/21/2025 4:32 AM CDT[facility] JCOMUFXHO12.5%02/21/2025 4:32 AM CDTQUEST DIAGNOSTICSEOSINOPHILS2.0%02/21/2025 4:32 AM CDTQUEST DIAGNOSTICSBASOPHILS0.8%02/21/2025 4:32 AM CDT[facility] ABSOLUTE PMKJSDNXNZV41172873 - 7800 cells/uL02/21/2025 4:32 AM CDTQUEST DIAGNOSTICSABSOLUTE QAMKKDOAVXJ6179223 - 3900 cells/uL02/21/2025 4:32 AM CDT [facility] DIAGNOSTICSABSOLUTE EKAMKCXLP008661 - 950 cells/uL02/21/2025 4:32 AM CDT [facility] DIAGNOSTICSABSOLUTE CVXONMFNTAD1443 - 500 cells/uL02/21/2025 4:32 AM CDT [facility] DIAGNOSTICSABSOLUTE IRHTCPDTA112 - 200 cells/uL02/21/2025 4:32 AM CDTQUEST DIAGNOSTICSCBC (INCLUDES DIFF/PLT) COMMENTSSEE NOTE02/21/2025 4:32 AM CDTQUEST DIAGNOSTICSComment: Review of peripheral smear confirms automated results. Specimen (Source)Anatomical Location / LateralityCollection Method / Volume Collection TimeReceived TimeBloodBLOOD SPECIMEN / UnknownQuest Collect / Unknown 02/20/2025 12:51 PM CDT02/20/2025 12:52 PM CDT Narrative [facility] - 02/21/2025 4:32 AM CDT FASTING:UNKNOWN FASTING: UNKNOWN Authorizing ProviderResult TypeResult StatusAmy Rod Gibson NPHEMATOLOGYFinal Result Performing OrganizationAddressCity/State/ZIP CodePhone Number [facility] [place] [address], * (ABNORMAL) COMP METABOLIC PANEL (02/20/2025 12:51 PM CDT)ComponentValueRef RangeTest MethodAnalysis TimePerformed AtPathologist PyqzjqjncPUMNVC004334 - 146 mmol/L1 4:00 AM CDTQUEST DIAGNOSTICSPOTASSIUM4.43.5 - 5.3 mmol/L 02/21/2025 4:00 AM CDTQUEST LVVMVSHCACHVEIQEMZZ33(L)98 - 110 mmol/L1 4:00 AM CDTQUEST DIAGNOSTICSCARBON OXCVWQS7672 - 32 mmol/L1 4:00 AM CDTQUEST KPGUXYYHLBRDKFTWUU766(H)65 - 99 mg/dL02/21/2025 4:00 AM CDTQUEST DIAGNOSTICSComment: ? Fasting reference interval For someone without known diabetes, a glucose value between 100 and 125 mg/dL is consistent with prediabetes and should be confirmed with a follow-up test. CALCIUM9.98.6 - 10.4 mg/dL02/21/2025 4:00 AM CDTQUEST DIAGNOSTICSCREATININE0.99 (H)0.60 - 0.95 mg/dL02/21/2025 4:00 AM CDTQUEST DIAGNOSTICSBUN/CREATININE RATIO 23(H)6 - 22 (calc)02/21/2025 4:00 AM CDTQUEST SXUQCCBIEUROFOG38(L)> OR = 60 mL/min/1.44v48702/21/2025 4:00 AM CDTQUEST DIAGNOSTICSALBUMIN3.93.6 - 5.1 g/dL 02/21/2025 4:00 AM CDTQUEST DIAGNOSTICSPROTEIN, TOTAL7.36.1 - 8.1 g/dL02/21/2025 4:00 AM CDTQUEST DIAGNOSTICSBILIRUBIN, TOTAL0.60.2 - 1.2 mg/dL02/21/2025 4:00 AM CDTQUEST DIAGNOSTICSALKALINE MQJHOXBXZHQ7278 - 153 U/L1 4:00 AM CDT [facility] PRHJYDNTQISRUP024 - 29 U/L1 4:00 AM CDTQUEST PDKPFCZCIZOJIM4238 - 35 U/L1 4:00 AM CDTQUEST DIAGNOSTICSUREA NITROGEN (BUN)237 - 25 mg/dL 02/21/2025 4:00 AM CDTQUEST DIAGNOSTICSGLOBULIN3.41.9 - 3.7 g/dL (calc) 02/21/2025 4:00 AM CDTQUEST DIAGNOSTICSALBUMIN/GLOBULIN RATIO1.11.0 - 2.5 (calc) 02/21/2025 4:00 AM CDTQUEST DIAGNOSTICSSpecimen (Source)Anatomical Location / LateralityCollection Method / VolumeCollection TimeReceived TimeBloodBLOOD SPECIMEN / UnknownQuest Collect / Mnuvlsh9602/20/2025 12:51 PM CDT02/20/2025 12:52 PM CDT Narrative [facility] - 02/21/2025 4:00 AM CDT FASTING:UNKNOWN FASTING: UNKNOWN Authorizing ProviderResult TypeResult StatusJessica Gibson NPCHEMISTRYFinal Result Performing OrganizationAddressCity/State/ZIP CodePhone Number [facility] [address] [address], * (ABNORMAL) XR DXA BONE DENSITY 2 [...] Patients: Results are automatically released to your [employer]) account once available, in compliance with federal regulations. This means that you may see your results before your provider has had a chance to review them. Please allow 2-3 business days for your provider to comment on the results. XR DXA Bone Mineral Density (BMD) EXAM LOCATION: [facility] [address] [facility] [address] PATIENT NAME: Dolly Chau DATE OF : [...] two scanners are made by the same director of sports medicine. PROCEDURE: Dual-energy x-ray absorptiometry performed with routine [...] Most Recently Relevant to Health Maintenance Insurance [place] [id number] Advance Directives TypeDate RecordedPatient RepresentativeExplanationHealthcare Directive10/09/2011 1:24 PMHEALTH CARE DIRECTIVE, [facility], 11/17/10Healthcare Directive 08/09/2007 * Full Code [...] Reviewed Preferences * Full Code Date ActivatedDate ZksqcuhzsunWcgcsjup81/8/2021 2:52 PM04/03/2021 7:26 PM QuestionAnswerCommentsCode Status Discussion:* Reviewed Preferences Care Teams Team MemberRelationshipSpecialtyStart DateEnd Date Darleen Dacosta DO [address] [place] [address] PCP - [facility]12/23/15 Bk Sigala MD Surgery - Urology10/02/11 Yennifer Baird MD Ophthalmology Surgery11/22/12 Divya Dudley MD [address] [place] [address] OncologyHematology and Oncology12/06/19 Jessica Gibson NP [address] [place] [address] OncologyNurse Practitioner - Family12/06/19
[2025-05-16 23:50] VITALS: BP 177/86; PULSE 93; RESP 18; TEMP 36.2; O2SAT 94; BMI 32.1
--- NOTE | 2025-05-17 00:38 | ED.GENADULT ---
HPI - General Adult General Time Seen by Provider: 00:48 Date Seen: 05/17/25 Chief complaint: Skin/Abscess/Foreign Body Stated complaint: L ankle infection, swelling Time Seen by Provider: 05/17/25 00:31 Source: patient and RN notes reviewed Mode of arrival: ambulatory Limitations: no limitations History of Present Illness HPI narrative: This 84yo female is coming in with concern of swelling in her left leg where there is an ulcer. She was in the ER here on May 12, noted to have a left leg ulcer developing. Patient states she does not have any diabetes. She had a follow-up with her primary provider on Wednesday and was told if there is any swelling to let her know. She feels leg is swollen. There is generalize soreness around the wound on the lateral ankle but overall she feels like it is improved. She is wondering if she is getting infection in her blood stream. She notes no fevers or chills, is not ill. She has not had any blood work done and does bring this up. The leg just looks a little bit more swollen verses the other leg, she is not having significant pain in the leg. If the ulcers pressed, there is pain. She has been using bacitracin and bandages. Unclear what precipitated the development of this, whether she bumped it or not. She did have x-ray imaging on 05/12 showing ulceration along the lateral malleolus without evidence of underlying erosion. Patient is baseline on Plavix with a history of a CVA. Related Data Home Medications ?Medication ?Instructions ?Recorded ?Confirmed ascorbic acid (vitamin C) 1,000 mg 1,000 mg PO DAILY 11/19/21 10/10/24 tablet aspirin 81 mg tablet,delayed 81 mg PO DAILY 11/19/21 10/10/24 release clopidogrel 75 mg tablet 75 mg PO DAILY 11/19/21 10/10/24 hydroxyurea 500 mg capsule 500 mg PO BID 11/19/21 10/10/24 simvastatin 20 mg tablet 20 mg PO HS 11/19/21 10/10/24 cholecalciferol (vitamin D3) 25 50 mcg PO DAILY 11/21/21 10/10/24 mcg (1,000 unit) capsule vitamin E (dl, acetate) 450 mg 450 mg PO DAILY 11/21/21 10/10/24 (1,000 unit) capsule hydrochlorothiazide 12.5 mg tablet 12.5 mg PO DAILY 06/08/22 10/10/24 acetaminophen 500 mg tablet 1,000 mg PO Q6H PRN 06/18/22 10/10/24 vitamin B complex (B 1 tab PO QDAY 07/02/22 10/10/24 Complex-Vitamin B12 tablet) omeprazole 20 mg capsule,delayed 20 mg PO DAILY 12/11/22 10/10/24 release Hemp seed oil - 4% lidocaine topical 09/25/24 10/10/24 ipratropium bromide 42 mcg (0.06 2 spray intranasal 3XD PRN 09/25/24 10/10/24 %) nasal spray ketoconazole 2 % shampoo topical 2XW 09/25/24 10/10/24 tamsulosin 0.4 mg capsule 0.4 mg PO QPM 09/25/24 10/10/24 infliximab IV 01/26/25 Previous Rx's ?Medication ?Instructions ?Recorded Walker- 2 Wheels #1 ea 12/25/21 amoxicillin 500 mg capsule 2,000 mg (4 x 500 mg) PO ONCE #4 12/11/24 caps cephalexin 500 mg capsule 500 mg PO TID 7 days #21 caps 05/12/25 Allergies Allergy/AdvReac Type Severity Reaction Status Date / Time alendronate sodium Allergy Severe severe Verified 10/10/24 10:47 aches bee venom protein (honey bee) Allergy Severe Swelling Verified 10/10/24 10:47 of Lip/Tongue/Throat Review of Systems Status of ROS: Reports: 6 or more systems reviewed and unremarkable except as noted in History and below [facility] Medical History History of urinary retention ?Z87.898 - Personal history of other specified conditions (ICD-10) Diarrhea ?R19.7 - Diarrhea, unspecified (ICD-10) Retention of urine ?R33.9 - Retention of urine, unspecified (ICD-10) Postoperative hemorrhage Nausea and vomiting ?R11.2 - Nausea with vomiting, unspecified (ICD-10) Left lower quadrant abdominal pain ?R10.32 - Left lower quadrant pain (ICD-10) Diverticulitis ?K57.92 - Diverticulitis of intestine, part unspecified, without perforation or abscess without bleeding (ICD-10) Dehydration ?E86.0 - Dehydration (ICD-10) Cerebrovascular disease ?I67.9 - Cerebrovascular disease, unspecified (ICD-10) Abdominal pain ?R10.9 - Unspecified abdominal pain (ICD-10) Osteoarthritis of hip ?M16.9 - Osteoarthritis of hip, unspecified (ICD-10) Pelvic floor dysfunction in female ?M62.89 - Other specified disorders of muscle (ICD-10) 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 - Genetic susceptibility to other disease (ICD-10) Macrocytosis without anemia ?D75.89 - Other specified diseases of blood and blood-forming organs (ICD-10) Colitis ?K52.9 - Noninfective gastroenteritis and colitis, unspecified (ICD-10) Osteoarthritis of right knee ?M17.11 - Unilateral primary osteoarthritis, right knee (ICD-10) Polycythemia vera ?D45 - Polycythemia vera (ICD-10) Osteoarthritis of right hip ?M16.11 - Unilateral primary osteoarthritis, right hip (ICD-10) Cancer ?C80.1 - Malignant (primary) neoplasm, unspecified (ICD-10) Arthritis ?M19.90 - Unspecified osteoarthritis, unspecified site (ICD-10) Neck problem ?R68.89 - Other general symptoms and signs (ICD-10) Back problem ?M53.9 - Dorsopathy, unspecified (ICD-10) Osteoporosis ?M81.0 - Age-related osteoporosis without current pathological fracture (ICD-10) Kidney problem ?N28.9 - Disorder of kidney and ureter, unspecified (ICD-10) IBS (irritable bowel syndrome) ?K58.9 - Irritable bowel syndrome without diarrhea (ICD-10) Elevated cholesterol ?E78.00 - Pure hypercholesterolemia, unspecified (ICD-10) High blood pressure ?I10 - Essential (primary) hypertension (ICD-10) Asthma ?J45.909 - Unspecified asthma, uncomplicated (ICD-10) History of cerebrovascular accident ?Z86.73 - Personal history of transient ischemic attack (TIA), and cerebral infarction without residual deficits (ICD-10) Acute left flank pain ?R10.9 - Unspecified abdominal pain (ICD-10) Surgical History 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) ?Z96.641 - Presence of right artificial hip joint (ICD-10) S/P arthroscopic partial lateral meniscectomy (11/12/21) ?Z98.890 - Other specified postprocedural states (ICD-10) Weakness of pelvic floor ?N81.89 - Other female genital prolapse (ICD-10) Bone spur ?M77.9 - Enthesopathy, unspecified (ICD-10) History of hysterectomy ?Z90.710 - Acquired absence of both cervix and uterus (ICD-10) Hx of breast biopsy ?Z98.890 - Other specified postprocedural states (ICD-10) Family History Family/Other Breast cancer Colorectal cancer Sister Ovarian cancer Father Prostate cancer Paternal Grandmother Diabetes Mother CHF (congestive heart failure) Stroke Family/Other Parkinson disease Alcohol dependence Social History Narrative: Marital Status: Occupation: [employer] Alcohol Use: No Recreational Drug Use: No Smoking Status: Never smoker Do you use any of these nicotine containing products: None Second hand tobacco smoke exposure: No How often do you have a drink containing alcohol: never How often do you have six or more drinks on one occasion: Never AUDIT-C Alcohol total score: 0 Non-prescribed substance use: denies use Caffeine: No Are you using contraception or practicing any form of control: No service: No Exam Const: Vital Signs, click to edit/add: Vital Signs - 24 hr 05/16/25 23:50 Temperature 97.2 F L Pulse Rate [Right Pulse Oximeter] 93 Respiratory Rate 18 Blood Pressure [Ri ght Upper Arm] 177/86 H Pulse Oximetry 94 Oxygen Delivery Me thod Room Air This 84-year-old female is alert, interactive, no apparent distress. Ambulatory in with cane. Sclera clear, face atraumatic, breathing easy on room air. Lungs are clear, good air entry, no wheezing or crackles, no tachypnea, no accessory muscle use. CV regular rate and rhythm, no murmur, normal S1-S2. Her left lower extremity indeed looks a little larger in comparison to her right. Nonspecific generalized edema, maybe some medial calf tenderness on palpation. She has dark purplish ulcerated area overlying the left lateral malleolus. There is no drainage. Below this there is some erythema and swelling but without warmth. Documenting provider has reviewed patient's vital signs: yes Course Course ED Course: Have reviewed with patient that I do think from initial viewing of this wound that she should be seen in wound clinic, she has a follow up with her doctor on Wednesday; did ask her to discuss this further. She does not have concerning signs of sepsis or significant wound infection at this time. Foot is warm with good coloration but she does have some generalized soft tissue swelling. Reviewed DVT with her but she really doesn't think that she could have one. Did discuss doing US but she is actually more concerned of blood infection, did try to review with her that she really is clinically stable and that I am not concerned for sepsis for her at all. We will obtain baseline labs including doing a d dimer. We discussed that if this is elevated, she really should have an US done. Reevaluation(s) Time of Reevaluation #1: 02:12 Reevaluation #1: Have reviewed with patient her labs, these are stable, no evidence of elevated white count, inflammatory marker with C reactive protein is normal. Her D-dimer is normal. Thus, we of decided on no further workup with ultrasound as DVT is unlikely, do agree with her. I do not think she requires an antibiotic change. We will re-dress this with bacitracin and a bandage like she had on it. I have discussed with her that a highly encourage her to consider wound clinic consultation, did offer referral but she is going to talk to her primary on Wednesday. Looking at her wound, do think it may need debridement and think she would benefit from the expertise of wound clinic. I have discussed this with her. Vital Signs Vital signs: Initial Vital Signs Temperature 97.2 F L 05/16/25 23:50 Temperature Source Temporal Artery Scan 05/16/25 23:50 Pulse Rate 93 05/16/25 23:50 Respiratory Rate 18 05/16/25 23:50 Blood Pressure 177/86 H 05/16/25 23:50 Blood Pressure Mean 116 H 05/16/25 23:50 Blood Pressure Position Sitting 05/16/25 23:50 Pulse Oximetry 94 05/16/25 23:50 Oxygen Delivery Method Room Air 05/16/25 23:50 Vital Signs Temperature 97.2 F L 05/16/25 23:50 Pulse Rate 93 05/16/25 23:50 Respiratory Rate 18 05/16/25 23:50 Blood Pressure 177/86 H 05/16/25 23:50 Pulse Oximetry 94 05/16/25 23:50 Oxygen Delivery Method Room Air 05/16/25 23:50 Temperature 97.2 F L 05/16/25 23:50 Pulse Rate 93 05/16/25 23:50 Respiratory Rate 18 05/16/25 23:50 Blood Pressure 177/86 H 05/16/25 23:50 Pulse Oximetry 94 05/16/25 23:50 Oxygen Delivery Method Room Air 05/16/25 23:50 Medical Decision Making Lab Data Lab results reviewed: Yes I reviewed the patient's lab results Labs: Lab Results 05/17/25 Range/Units 01:15 WBC 3.90 L (4.50-11.00) K/uL RBC 2.85 L (4.00-5.20) m/uL Hgb 11.5 L (12.0-16.0) gm/dL Hct 36.0 (33.0-51.0) % MCV 126 H (80-100) fL MCH 40 H (26-34) pg MCHC 32 (32-36) gm/dL RDW Coeff of Boy 14.6 (11.5-15.5) % Plt Count 243 (140-440) K/uL Neut % (Auto) 51.8 (42.0-72.0) % Lymph % (Auto) 35.4 (20-44) % Tate % (Auto) 10.8 (0.0-11.0) % Eos % (Auto) 1.0 (0.0-7.0) % Baso % (Auto) 0.5 (0.0-3.0) % Neut # (Auto) 2.00 (1.7-7.0) K/uL Lymph # (Auto) 1.40 (0.90-2.90) K/uL Tate # (Auto) 0.40 (0.00-0.90) K/UL Eos # (Auto) 0.00 (0.00-0.50) K/uL Baso # (Auto) 0.00 (0.00-0.30) K/uL Abs Immat Gran (auto) 0.00 (0.00-0.30) K/uL Imm/Tot Granulo (auto) 0.5 % D-Dimer Quant (PE/DVT) 0.50 (0.00-0.50) ug/ml Sodium 137 (135-149) mmol/L Potassium 4.4 (3.6-5.1) mmol/L Chloride 101 (96-114) mmol/L Carbon Dioxide 30 (20-32) mmol/L Anion Gap 6 L (7-15) mEq/L BUN 21 (7-30) mg/dL Creatinine 0.8 (0.5-1.5) mg/dL Estimated Creat Clear 32.17 Estimated GFR 73 ml/min Glucose 109 (60-115) mg/dL Calcium 9.6 (8.4-10.6) mg/dL C-Reactive Protein < 0.5 L (0.5-1.0) mg/dL Discharge Plan Discharge Clinical Impression: Left leg swelling Ulcer of left ankle Qualifiers: Non-pressure ulcer stage: unspecified non-pressure ulcer stage Qualified Code(s): 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 Continue to watch this wound closely. Complete the Keflex as it was prescribed. Keep your follow-up clinic appointment on Wednesday. Please discuss with your primary care provider about referral to Wound Clinic, I do think that this wound would benefit from wound clinic. Try to elevate this leg ache heart level or above as much as possible. The elevation of the leg ache will hopefully help decrease some of the generalized swelling. Prescriptions: No Action omeprazole 20 mg capsule,delayed release(DR/EC) 20 mg PO DAILY simvastatin 20 mg tablet 20 mg PO HS aspirin 81 mg tablet,delayed release (DR/EC) 81 mg PO DAILY clopidogrel 75 mg tablet 75 mg PO DAILY hydroxyurea 500 mg capsule 500 mg PO BID ascorbic acid (vitamin C) 1,000 mg tablet 1,000 mg PO DAILY cholecalciferol (vitamin D3) 25 mcg (1,000 unit) capsule 50 mcg PO DAILY vitamin E (dl, acetate) 450 mg (1,000 unit) capsule 450 mg PO DAILY (DME) Walker- 2 Wheels Misc See Rx Instructions .Route Qty: 1 0RF Rx Instructions: As directed vitamin B complex [B Complex-Vitamin B12] Tablet 1 tab PO QDAY tamsulosin 0.4 mg capsule 0.4 mg PO QPM ipratropium bromide 42 mcg (0.06 %) spray,non-aerosol 2 spray intranasal 3XD PRN ketoconazole 2 % shampoo topical 2XW Hemp seed oil - 4% lidocaine topical hydrochlorothiazide 12.5 mg tablet 12.5 mg PO DAILY acetaminophen 500 mg tablet 1,000 mg PO Q6H PRN infliximab [Remicade] IV cephalexin 500 mg capsule 500 mg PO TID 7 Days Qty: 21 0RF amoxicillin 500 mg capsule 2,000 mg PO ONCE Qty: 4 3RF Rx Instructions: Take 4 capsules orally 1 hour prior to dental appointment Follow Up/Referrals: Draleen Dacosta DO [Primary Care Provider, Family Practice] Stand Alone Forms: MyHealth Info Instructions
--- OUTSIDE RECORDS SUMMARY | 2025-05-17 01:02 | XMS_ITS | Continuity of Care Document ---
Author Organization [facility], [facility] Address [address] [place] [address] Care Team Providers Care Perinatal Coordinator Name Role Phone [facility] Primary Care Provider Assessment No assessment recorded. Plan of Treatment Reminders Order DateSubmit DateProviderLast Modified ByOrganization DetailsLast Modified TimeDetailsAppointmentsNone recorded.Laburinalysis, cbnarkkb59 merced[facility], [address], [place], [address], 72/02/2025 14:22:45ReferralNone recorded.ProceduresNone recorded. SurgeriesNone recorded.ImagingNone recorded.Medication OrdersNone recorded. Patient TargetsNo targets recorded. Patient Instructions Encounter Date Encounter Id Patient Instructions Last Modified By Organization Details Last Modified Time 04/02/2025 [id number] doing better after treatment for vaginitis. will have her follow up with Dr Sharif in the spring with NEY blackwood Not available 04/02/2025 14:29:40 Reason for Referral None Reported. Results Created Date Observation Date Name Description Value Unit Range Abnormal Flag Note LastModifiedBy Organization Detail LastModifiedTime 04/02/2025 04/02/2025 urinalysis, dipstick BLOOD Trace ( 5 RBC/uL) Not Available[facility] [address], [place], [address], 51/ 16:50:5811/urinalysis, dipstickBILIRUBINNegativeNot Available [facility] [address], [place], [address], Ph [phone] 16:50:5811/urinalysis, dipstickUROBILINOGEN0.2 mg/dL (Norm)Not AvailableU[facility] [address], [place], [address], Ph [phone] 16:50:5811//urinalysis, dipstickKETONESNegativeNot Available [facility] [address], [place], [address], Ph [phone] 16:50:5811//urinalysis, dipstickPROTEINNegativeNot Available [facility] [address], [place], [address], Ph [phone] 16:50:5811urinalysis, dipstickNITRITESNegativeNot Available [facility] [address], [place], [address], Ph [phone] 16:50:5811urinalysis, dipstickGLUCOSENegativeNot Available [facility] [address], [place], [address], Ph [phone] 16:50:5811urinalysis, dipstickp.H.5.5Not AvailableU[facility] [address], [place], [address], Ph [phone] 16:50:5811/urinalysis, dipstickS.G. (Specific [place])1.025Not AvailableUa_[facility] [address], [place], [address], 47/ 16:50:5811/urinalysis, dipstickLEUKOCYTESNegativeNot Available [facility] [address], [place], [address], 16/ 16:50:58 Result Notes None recorded. Problems Name Problem SNOMED Code Status Onset Date Resolution Date Notes Provider Name and Address Organization Details Recorded Time Kidney stone 80089136 Active 04/11/2007 Yarelis Prim krys, [facility] Fsymhbu9212/03/2023 15:17:51Irritable bowel nhnhwhes96365166Fovwyj 04/11/2007Yarelis Prim krys, [facility] Bhkbegb8012/03/2023 15:17:51Disorder of skeletal qxiryd28394555 Temsfr1108/06/2007[facility] Lfkmdxt3312/03/2023 15:17:51Hypertensive pcvcthqi06429817Pydlww 04/01/2009Yarelis Merino [facility] Jrzzzxe0912/03/2023 15:17:51History of polyp of wgmyf270271899 Onehzy3909/09/2011Yarelis Prim [facility] Gmchotx9312/03/2023 15:17: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 309555482Cxdhwl02/26/2014Yarelis marcano [facility] Ajusjij8612/03/2023 15:17:51Patient encounter ckqjcm313317424Xbwkso 01/16/2014[facility] Ukezlnw9812/03/2023 15:17:69Mubaagmdqqpj02712801Iezyuf61/29/2017 Yarelis Prim krys, [facility] Jcausgb4812/03/2023 15:17:51Right sided abdominal ntde610958462 Oaqeqs5701/02/2018[facility] Yppotfm3212/03/2023 15:17:51Protein level - bzlfmbp549049412Njxpxy 01/02/2018Yarelis Prim null, [facility] Gcmqpmy1312/03/2023 15:17:49Svpnsfejbncu683622298Gkinmj99/12/2018 Yarelis Prim null [facility] Kifsqnn6412/03/2023 15:17:51Diverticulum of large intestine without srgvzorjih471226064Ohpnjj78/12/2018[facility], [facility]12/03/2023 15:17:51Mass of right adrenal gland 39800463568924733Hljtrq25/16/2018[facility] 15:17:51History of cerebrovascular accident 509065081Cwcusz22/06/2019[facility]12/03/2023 15:17:51Ureteric fjyby15811422Hyvlgm10/15/2019 N20.1 : Calculus of ureterNot QbvtbwfeiZxjhawWlpmgw32/18/2020 02:06:08 Polycythemia vera (clinical)645432193Hetseq61/16/2020[facility], [facility]12/03/2023 15:17:51Acute gastric ulcer without hemorrhage AND without srvnyxfbcop86316812Docnbo41/01/2020[facility], [facility]12/03/2023 15:17:14Ogjlxgxtjwjljj4103229Rrsqfz43/11/2020 [facility]12/03/2023 15:17:51Recurrent urinary tract infection 827347488Ujfbwc78/09/2024Tomaribell Maddox MD [address] [place] [address], [address], [facility]07/02/2023 15:33:10Frank wucrbxinb829152174Emthqr 07/02/2023Tomaribell Maddox MD [address] [place] [address], [address], [facility]07/02/2023 15:34:74Cxkqvzw58845266Ciyagc73/31/2024Tomaribell Maddox MD [address] [place] [address], [address], [facility]10/22/2023 12:34:25Increased frequency of urination 930153000Eherwl67/31/2024Tomaribell Maddox MD [address] [place] [address],[address] [address], [facility]10/22/2023 12:34:26 Problem Notes None recorded. Procedures Surgical History Date Name Laterality Status Provider Name and Address Organization Details Recorded Time 01/08/2025 Bladder Scan Adan Maddox MD [address] [place] [address],[address], [address] [place] [address], [facility]01/08/2025 14:48:46045Bladder ScancompletedDezera [facility]08/28/2024 14:31:04104Bladder Scancompleted Feliz Maddox MD [address] [place] [address],[place] [address], [place] [address] 15:44:07084ColonoscopycompletedDezAshley [place]ille 3846306/02/2024 14:21:ladder Scancompleted Yarelis PrimMN [facility]12/03/2023 15:23:1704Bladder Scan Adan Maddox MD [address] [place] [address],[place] [address], [facility]10/22/2023 12:26:3401total replacement of hip Adan Maddox MD [address] [place] [address], [address] [place] [address], [facility]10/22/2023 12:17:10005/24/2019colonoscopycompletedFeliz Maddox MD [address] [place] [address], [facility]06/05/2024 11:45:34reconstruction of pelvic floorcompleted Feliz Maddox MD [address] [place] [address],[place] [address], [facility]09/15/2021 15:47:54 Imaging Results None recorded. Procedure Notes None recorded. Medical Equipment None Reported. Allergies Allergen ID Allergen Name Allergen Category Reaction Reaction Severity Criticality Documentation Date Start Date Code Code System Note Provider Name and Address Organization Details Recorded Time 539052 Fosamax medication abdominal pain Not available Not [id number] Fleming, MD [address] [facility],[address], [place], [address], [facility] Brmqgyu33/01/2021 15:05:60258534evfzrrbhysv sodiummedicationother Not available high03/03/20230525/04/20088187300562YcPybtCIGQXP FLOOR PAINDezera Riddhi marcanoUnited Hospital Byotaco0208/28/2024 14:29:96281584bgyksxsspo acidNot availableother Not available high7154694813OcLtpgGauanr floor dysfunction PELVIC FLOOR PAIN Dezerwagner [facility]canoUnited [facility] Rzpfxgg2708/28/2024 14:29:86003732xgnhn bee venomenvironment angioedema Not available [facility]/7065679660NhDbqzfcp done fine with bees in the past. Could have been a hornet. unrecognized reaction (text: Throat Swelling/Closing, code: [id number]) (from external source)Feliz Maddox MD [address] [facility],[address] [place] [address], [address], [facility] Gjicqnd1801/08/2025 14:42:17 Medications Name Sig Start Date Stop [...] AvailableNot AvailableNot Available cefuroxime axetil 250 mg uzvtcg614completedNot AvailableNot AvailableNot Availableketoconazole 2 % shampooWASH SCALP 1-2X WEEKLY. LATHER AND LET SIT FOR 3-5 MINUTES BEFORE RINSING.activeNot AvailableNot AvailableNot Available cefpodoxime 200 mg oozfnw164completedNot AvailableNot AvailableNot Availableoxybutynin chloride ER 10 mg [...] EVERY DAY4completedNot AvailableNot AvailableNot Availableprednisone 5 mg itbwjh3007/02/2023ompletedNot AvailableNot AvailableNot Availablelidocaine-prilocaine 2.5 %-2.5 % topical kit12/14/2019 4completedNot AvailableNot AvailableNot AvailableRemicade 100 mg intravenous solutionInject by intravenous route.activeNot AvailableNot Available Not Availablemeclizine 12.5 mg tabletTAKE 1 TABLET BY MOUTH 3-4 TIMES PER DAY NEEDED. MAY USE 1-2 TABLETS NEEDED EVERY 6-8 HOURS FOR TVMDEEBBQ57/09/2024 completedNot AvailableNot AvailableNot Availablemetronidazole 500 mg tabletTAKE [...] days.4completedNot AvailableNot AvailableNot Availableaspirin 81 mg tablet,delayed zasafea85 mg by oral route.03/21/2020activeNot AvailableNot AvailableNot Availableacetaminophen 500 mg tabletTake 1000 mg by oral route. 4completedNot AvailableNot AvailableNot Available triamcinolone acetonide 0.1 % topical creamAPPLY TWICE DAILY TO ECZEMA UP TO 2 WEEKS THEN TAKE A 2 WEEK BREAK. REPEAT NEEDED.activeNot AvailableNot AvailableNot Availableoxycodone-acetaminophen 5 mg-325 mg lkpkje1210/22/2023 completedNot AvailableNot AvailableNot Availablehydrocortisone 2.5 % topical cream with perineal applicatorAPPLY TOPICALLY TO HEMORRHOIDS TWICE DAILY NEEDED FOR DRGYZPYPKV88/09/2024ompletedNot AvailableNot AvailableNot Available prednisolone acetate 1 % [...] CAPSULE BY MOUTH TWICE DAILY NEEDED FOR KYJQNEMUXCIX14/31/2024completedNot AvailableNot AvailableNot Availableomeprazole 20 mg capsule,delayed releaseTAKE 1 CAPSULE BY MOUTH EVERY DAY BEFORE A MEALactiveNot AvailableNot AvailableNot Availablecephalexin 500 mg tabletTAKE 1 TABLET BY MOUTH EVERY 6 HOURS FOR 7 DAYS4completedNot AvailableNot AvailableNot Availablemupirocin 2 % topical ointmentAPPLY TOPICALLY TO VULVA TWICE DAILYactiveNot AvailableNot AvailableNot Availableibuprofen 600 mg cbucft2407/02/2023ompletedNot AvailableNot AvailableNot Availableestradiol 0.01% (0.1 mg/gram) vaginal creamUSE DIRECTED VAGINALLY TWICE WEEKLYactiveNot AvailableNot AvailableNot Availablemethylprednisolone 4 mg tablets in a dose packFOLLOW PACKAGE GKQLGHLGPV62/09/2024ompletedNot AvailableNot AvailableNot Availableipratropium bromide 42 mcg (0.06 [...] TO 6 HOURS NEEDED FOR NAUSEA OR YCNWRWGR105completedNot AvailableNot AvailableNot Available amoxicillin 875 mg-potassium clavulanate 125 mg vsxeeg2007/02/2023ompletedNot AvailableNot AvailableNot Availableoxycodone 5 mg tabletTAKE ONE-HALF TO 1 TABLET BY MOUTH EVERY 4-8 HOURS NEEDED FOR PAIN4completedNot AvailableNot AvailableNot Availableneomycin 3.5 mg/g-polymyxin B 10,000 unit/g- dexameth 0.1 % eye oint07/02/2023ompletedNot AvailableNot AvailableNot Availablecholecalciferol (vitamin D3) 25 mcg (1,000 unit) tvajoxr9287 units by oral route.10/20/2019activeNot AvailableNot AvailableNot AvailablePremarin 0.625 mg/gram vaginal creamAPPLY A SMALL AMOUNT OF CREAM 1/2 INCH RIBBON OVER THE URETHRA AND OUTER VAGINAL AREA AT BEDTIMEactiveNot AvailableNot AvailableNot Availablenitrofurantoin monohydrate/macrocrystals 100 mg ahlayqf6807/02/2023 completedNot AvailableNot AvailableNot Availablesolifenacin 5 mg tabletTAKE 1 TABLET BY MOUTH EVERY DAY4completedNot AvailableNot AvailableNot Availablemesalamine 1,000 mg rectal suppositoryUNWRAP AND INSERT 1 SUPPOSITORY RECTALLY EVERY DAY AT RLQWPFE44/11/2024completedNot AvailableNot AvailableNot Availablemesalamine 1.2 gram tablet,delayed releaseTAKE 4 TABLETS BY MOUTH EVERY DAY WITH A MEAL4completedNot AvailableNot AvailableNot Available hydrochlorothiazide 12.5 mg tabletactiveNot AvailableNot AvailableNot Available mesalamine rectal susp enema with cleansing wipes 4 gram/60 mL kitINSERT 60ML RECTALLY EVERY DAY AT OMWFIXD7707/02/2023ompletedNot AvailableNot AvailableNot AvailableLinzess 72 mcg capsuleTAKE 1 [...] Updated DateTime 04/02/2025 154.94 cm 32.1 kg/m2 45013.7 g Seawagner Riddhi [facility] 04/02/2025 14:15:05 Social History Question Answer Notes LastModified by Organization D etails LastModified Time Tobacco Smoking Status Never Smoker Feliz Maddox MD [address] [place] [address],[address], [place], [address], [facility] Dyolsht32/01/2021 15:09:21What Is Your Level Of Caffeine Consumption?Kcdnxgfqcdxn52Trmxcvcnwdw not xdoasbevk60/01/2021What Was The Date Of Your Most Recent Tobacco Screening?04/02/2025doreilleyInformation not dnxubvbnx36/10/2025What Is Your Relationship Status?Rrczxlwvqgjonds99Orzsbexwrit not lsjdrpgdu74/01/2021Has Tobacco Cessation Counseling Been Provided?No kdssqkpz23Ragdqtazmdt not jladthinl17/18/2025 Sex: Unknown Functional Status Question Answer Note LastModified by Organization D etails LastModified Time Do you use any illicit or recreational drugs? No alitrlkl70Urtxpnodlzb not dvlyywdjr61/01/2021o you or have you ever used any other forms of tobacco or nicotine?Ixmydrievt90Olzekbulexr not available 02/21/2021What is your level of alcohol consumption?Yokytprqcles01Ccnswvruzsi not sjeuxwrvw63/01/2021re you currently employed?Lghhxuzdkw12Hrjeoujlniv not wwzzhoadj33/01/2021 Mental Status None recorded. Family History Relationship Description Onset Age of this Age Resolved Age Notes LastModified by Organization Details LastModified Time Father Family history of malignant neop lasm of prostate fqsidxvw39Mhn ommyorimg88/01/2021 15:07:44 Notes:Mother had a stroke Medical History Condition Response Sexually Transmitted Infection N Diabetes N Other N Bleeding Disorder N High Blood Pressure Y Kidney Stones Y High Cholesterol Y GERD/Acid Reflux N Heart Disease Y Cancer Y Depression N Lung Disease N Gynecological History Statement/Question Response Sexually Active? N Obstetrics History GPAL:G 3 P 0 0 0 0 Immunizations Vaccine Type Date Status Note Provider Nam e and Address Organization Details Recorded Time Influenza, adjuvanted, trivalent, PF 02/22/2018 comp leted Malia Mccollumf null, [facility]07/15/2023 11:50:52Influenza, adjuvanted, trivalent, PF 03/17/2017completedDebra Brien null, [facility] Nsigpwr8807/15/2023 11:50:52Influenza, recombinant, quadrivalent, PF03/25/2019completedDebra Bryceland null, [facility] Hzmanmu6007/15/2023 11:50:52Influenza, adjuvanted, quadrivalent, PF 02/14/2020completedDebra [facility]rien null, [facility]/15/[facility] 11:50:52COVID-19, mRNA, LNP-S, PF, 30 mcg/0.3 mL dose07/06/2020ompletedDebra Bryceland null, [facility] Nbepmtt6907/15/2023 11:50:52COVID-19, mRNA, LNP-S, PF, 30 mcg/0.3 mL dose07/27/2020ompletedDebra Bryceland null, [facility]01/05/2025 10:22:46pneumococcal polysaccharide PPV23 08/30/2007completDebbielucius Gilberty null, [facility]08/28/2024 14:28:28Dsje8710/02/2011completedDebra Brien null, [facility]01/05/2025 10:22:46Pneumococcal conjugate PCV 13002/18/2015 completedDebra Brien null, [facility]01/05/2025 10:22:46zoster live04/11/2007completDebbielucius Gilberty null, [facility]08/28/2024 14:28:53Influenza, high-dose, trivalent, PF 02/17/2016completedDebra Bryceland null, [facility]07/15/2023 11:50:52Influenza, split virus, trivalent, muhslfyxcxuv57/04/2010completedDebra Bryceland null, [facility]01/05/2025 10:22:46Influenza, split virus, trivalent, nyeunbhwslvg19/06/2014completedDebra Bryceland null, [facility]01/05/2025 10:22:46Influenza, split virus, trivalent, buehduxejjhr54/07/2009coms[facility] treatment centerJacindawil Gilberty null, [facility]08/28/2024 14:28:53Influenza, split virus, trivalent, klpvhbqvmivm88/11/2012completedDebra Bryceland null, [facility]01/05/2025 10:22:46Influenza, split virus, trivalent, aeajfqftvwrg81/27/2008completDebbielucius Gilberty null, [facility] Lkolido5108/28/2024 14:28:53Influenza, split virus, trivalent, bkwccczaddwg59/01/2007completedDebra Brien null, [facility]07/15/2023 11:50:53Influenza, split virus, trivalent, fkmipichgori05/11/2006completedDebra Brien null, [facility]07/15/2023 11:50:53Influenza, split virus, trivalent, mfotoyvurbmb36/30/2011completedDebra Bryceland null, [facility]01/05/2025 10:22:46Novel mhsnjqegv-E0T9-9729/18/2009 completedDebra Brien null, [facility]01/05/2025 10:22:46Td (adult), 5 Lf tetanus toxoid, preservative free, mlpvkatr27/10/2020completedDebra Bryceland null, [facility]01/05/2025 10:22:46Td (adult), 2 Lf tetanus toxoid, preservative free, nqtrqgqa25/01/2002completedDebra Brien null, [facility]07/15/2023 11:50:53Influenza, split virus, quadrivalent, PF02/18/2015completedDebra Brien null, [facility]01/05/2025 10:22:46Influenza, adjuvanted, quadrivalent, PF 1completedNot DcyobuqnjWktphzLwqwhh46/10/2025 14:01:20COVID-19, mRNA, LNP-S, PF, 30 mcg/0.3 mL dose1completedNot AvailableAthBon Sec[facility] 04/02/2025 14:01:20Influenza, split virus, quadrivalent, PF05/10/2009completed Not AzagmvwiuGnzumgKcdkur99/10/2025 14:01:20COVID-19, mRNA, LNP-S, PF, 30 mcg/0.3 mL dose, jasmyn-efyjpdf60/18/2022completedNot AvailableAthBon Secours [facility] 04/02/2025 14:01:20COVID-19, mRNA, LNP-S, bivalent, PF, 50 mcg/0.5 mL or 25mcg/0.25 mL dose2completedNot QvwhxkbuqPqfixlUtgwmh64/10/2025 14:01:20Influenza, adjuvanted, quadrivalent, PF2completedNot Available CduylcBavmwb28/10/2025 14:01:20COVID-19, mRNA, LNP-S, PF, 50 mcg/0.5 mL 03/02/2023ompletedNot MiipvltxgAdpaoqIaihol60/10/2025 14:01:20Influenza, high- dose, quadrivalent, PF03/14/2023ompletedNot IiggygvbfPkuijnJcmqaw09/10/2025 14:01:20zoster /24/2024ompletedNot AulkzyaqxZwpxgoOfwhqr49/10/2025 14:01:20zoster memebjvwfun74/07/2024completedNot SwejqjeuzSpcyesKlkiol02/10/2025 14:01:20COVID-19, mRNA, LNP-S, PF, 50 mcg/0.5 mL02/09/2024ompletedNot Available VwksknEhusvc56/10/2025 14:01:20Influenza, high-dose, trivalent, PF03/06/2024 completedNot HalqljygfMuuvktLjmpkt74/10/2025 14:01:20RSV, bivalent, protein subunit RSVpreF, diluent reconstituted, 0.5 mL, PF03/29/2024ompletedNot RcepkvcwxXhfehkJcecqw84/10/2025 14:01:20Novel Cquematyn-G6V7-64, all birnicgodkfh24/18/2009completedDebra Bryceland null, [facility] Fcpdtlc9701/05/2025 10:22:46Influenza, split virus, trivalent, PF 04/22/2011completedDebra Bryceland null, [facility] Vtsssth9701/05/2025 10:22:46Influenza, adjuvanted, trivalent, PF 01/29/2025ompletedNot LqazoeizkTjylmmHhpkva64/10/2025 14:01:20COVID-19, mRNA, LNP-S, PF, jasmyn-sucrose, 30 mcg/0.3 mL02/17/2025ompletedNot Available XxldnxZosjrl58/10/2025 14:01:20 Past Encounters Encounter ID Performer Location Encounter Start Date Encounter Closed Date Diagnosis/Indication Diagnosis SNOMED-CT Code Diagnosis ICD10 Code Diagnosis IMO Codes Diagnosis Note [id number] Feliz Maddox MD [facility] [address] [place] [address] 04/02/2025 13:56:38 04/03/2025 11:48:09 Dysuria 01319283 R30.0 Health Concerns Section Related Observation LastModified [...] REPLACEMENT/ ADVANTAGE - PPO) [id number] Dolly Chau [id number] Dolly Chau Notes Date Note Type Note Provider Name and Address Orga nization Details Recorded Time 04/02/2025 text/html been treated for vaginitis with bactroban and lotrisone, and estrogen cream and doing well, seeing pelvic floor therapy soon. TARAS Alanis - [place] Iqlhvxs45/10/2025 14:30:33 OBGyn Episode No OBEpisode recorded.
--- OUTSIDE RECORDS SUMMARY | 2025-05-17 01:02 | XMS_ITS | Clinical Summary ---
Author Organization [employer] [facility] Address [facility] [place] [address] Care Team Providers Care International Marketing Specialist Name Role Phone Bk Sigala MD Unavailable [phone] Yennifer Baird MD Unavailable Darleen Dacosta DO Primary Care Provider Divya Dudley MD Unavailable [phone] Jessica Gibson NP Unavailable Allergies Active AllergyReactionsCriticalityNoted DateCommentsAlendronate SodiumOther - Describe In Comment NjyzdFmmhut37/12/2008 PELVIC FLOOR PAIN Venom-Honey BeeAngioedema,Throat Swelling/CzndlamOahc89/02/2022 has done fine with bees in the past. Could have been a hornet. Medications MedicationSigDispense QuantityRefillsLast FilledStart DateEnd DateStatus acetaminophen (TYLENOL EXTRA STRGTH) 500 mg tablet Take 1,000 mg by mouth every 6 hours if needed for Pain. Max acetaminophen dose: 4000mg in 24 hrs. Takes YCB34806/30/2019Active ascorbic acid, vitamin C, (VITAMIN C) 1,000 [...] sided colitis without complications 04/13/2024Sensorineural hearing loss, lrdvqnova08/09/2024Myelophthisic anemia 08/23/2023Osteoarthritis of left sacroiliac joint08/23/2023Ischemic colitis 08/23/2023Left sided ulcerative (chronic) ygrwopp5803/05/2023Left sided ulcerative ygrbtjm7912/22/2022llergic reaction to insect bite03/24/2022nemia, macrocytic 03/24/2022alculus of left umsili3103/24/2022Leukopenia due to antineoplastic iqvpskehuxxt34/01/2022 Assessment & Plan (09/28/2022 12:44 PM CDT): hydroxyurea for PCV. Darleen Dacosta D.O. 09/28/2022 12:44 PM Non-ST elevation (NSTEMI) myocardial kdaymyqjpf75/01/2022Osteoarthritis of right hip2S/P arthroscopic partial lateral smbogahwlgyp72/01/2022Vision loss of left eye03/24/2022erebrovascular accident (CVA)03/24/2022MDS (myelodysplastic syndrome)12/15/2021History of xacqjvvykrzswna30/25/2022 Overview (12/15/2021): Grade 3 rectal intussusception 2017 ?? Normocalcemic primary ebkbbkqpzoxychdcram22/16/2022Diverticular disease 6465Fzksbnoc67/08/8857Awxhnj19/08/2021bdominal pain03/31/2021 Rpnsyymmiudjeia53/11/2020 Overview (02/02/2020): Component Latest Ref Rng & Units 10/20/2019 11/06/2019 11/15/2019 PLATELET COUNT 140 - 440 thou/cu mm 558 (H) 753 (H) 585 (H) Acute gastric ulcer without hemorrhage or advatqwoecv91/01/2020 Overview (01/23/2020): EGD 12/2019 5 mm gastric ulcer secondary to aspirin, will use Pepcid since patient is on Plavix no follow-up upper endoscopy is needed Polycythemia vera12/07/2019History of enrtgq5812/27/2018Adrenal mass, right 01/06/2018 Overview (03/14/2018): suspected from adrenal hemorrhage while on plavix. follow up will be in March 2018 with endo andimaging. Tpburxkiofyd99/12/2018Elevated efonvxue04/12/2018Diverticulosis of large intestine without tpjwtntrew28/12/2018 Overview (01/23/2020): Severe diverticular stricture, biopsies from the colon showed no microscopic colitis. No follow-up colonoscopy is needed given the severe diverticular stricture and no polyps found today Uidwcpqnudtf81/29/2017ACP (advance care planning)01/16/2014 Overview (01/16/2014): Has done living will. 10/09/2011 Bowel habit xkakzfm4301/16/2014Personal history of colonic fugcqg1509/09/2011 Overview (01/23/2020): Colonoscopy 08/2011 diverticulosis repeat in 5 years Colonoscopy 10/2017 severe diverticular disease, 2 mm polyp, no follow up colonoscopy needed Severe diverticular stricture, biopsies from the colon showed no microscopic colitis. No follow-up colonoscopy is needed given the severe diverticular stricture and no polyps found today HTN (hypertension)04/01/2009Leukocytosis, bwcrqxmywkm10/16/2008 Overview (03/24/2022): In setting of ARF and renal stenting uequekvjbz55/15/2008 Overview (02/13/2015): Previous use of actonel 3 years. Off a couple years and then decline. Resumed 2012 and will consider taking for 5 years. Roxanna Brambila M.D. 10/02/2011 11:00 AM History of kidney vjajcz3804/11/2007Irritable bowel cptsxfei27/19/2007 Overview (04/11/2007): collagenus colitis on colonoscopy in 1990, normal exams since then. Cystocele, midlineVaginal vault prolapse Resolved Problems ProblemNoted DateDiagnosed DateResolved DateLeft sided colitis, unspecified zstblqsrcror96/03/202203/cute ischemic zcounxy91/05/2022Right hand fhnpouvp10Acute UTIRight lateral abdominal pain/09/2023 Overview (01/06/2018): 2/2 adrenal hematoma vs hemorrhagic mass while on plavix Acute kidney failure, Overview (08/07/2007): Creatinine elevation to 2.9 after complicated right renal lithotripsy and stent placement. Nonspecific (abnormal) findings on radiological and other examination of genitourinary jbttji45 Overview (08/07/2007): Abnormal CT scan: right kidney enlargement, free air external to right ureter, stent in ureter. Nausea with axzjkiwi49Other alteration of consciousness Encounters DateTypeDepartmentCare SvkpHjlzqhsbfrg66/22/2025 10:40 AM CSTOffice Visit [facility] [address] [place] [address] Darleen Dacosta, ER Follow up (ulceration left ankle- has gotten swollen since yesterday/) 05/14/20257240Hdkdyx72/20/2025Orders Only [facility] Scanner 1 scan: (1-Ord) [facility], XR ANKLE LT MIN 3V, 11:30 AM CSTOffice Visit [facility] [address] [place] [address] Anne Mccracken PA Derm Problem (sore on left ankle x 1 week, red and tender)05/10/2025Travel 04/20/2025 11:55 AM SOFTWARE QUALITY TEST ENGINEER - 04/20/2025 11:59 PM CSTHospital Encounter [facility] [address] [place] [address] Connor London MD Left sided colitis without complications (HC) (Primary Dx)04/20/2025Travel 04/17/2025Orders Only [facility] [address] [place] [address] Connor Lodnon MD 1 scan: IV MEDICATION LRSKXQ7704/12/2025Orders Only [facility] Scanner 1 scan: (1-Ord) [facility], F/U: NEOPLASM OF UNCERTAIN BEHAVIOR, Telephone [facility] [address] [place] [address] Zulay Ortiz RN Updated orders for swottvpt78/09/2025Refill [facility] [address] [place] [address] KeenatDarleen, DO Refill Request (Hydrochlorothiazide, Hydroxyurea)03/28/2025Refill [facility] [address] [place] [address] DetertDarleen, DO Refill Request (Clopidogrel)03/18/2025Refill [facility] [address] [place] [address] DetertDarleen, DO Refill Request (Simvastatin)03/05/2025Orders Only [facility] Scanner 1 scan: (1-Ord) [facility], SHAVE BIOPSY LT SUPERIOR LATERAL MALAR CHEEK, Telephone [facility] [address] [place] [address] Oncology, [facility] Gecrtzcnism87/02/2025 1:00 PM CDTOffice Visit [facility] [address] [place] [address] Divya Dudley MD Follow Up (Polycythemia vera)02/22/2025 12:41 PM CDT - 02/22/2025 11:59 PM CDT Hospital Encounter [address] [address] Connor London MD Left sided colitis without complications (HC) (Primary Dx)02/22/2025Travel 02/21/2025 11:18 AM CDT - 02/21/2025 11:59 PM CDTHospital Encounter [facility] [place] [address] [place], [place] [id number] Gallo Potts MD Guist, Angela M, PT Pelvic pain (Primary Dx)02/20/2025 1:00 PM CDTOrders Only [facility] [address] [facility] [place] [address] Lab, [place] Lab02/20/20250133Nmaaow61/25/2025Telephone [facility] [address] [place] [address] KeenatDarleen DO Appointment (UROGYNECOLOGY )from Last 3 Months Immunizations ImmunizationAdministration DatesNext DueAMB INFLUENZA IIV3 (AGE 65+ YRS) PF (Flu Clinic Only)02/22/2018COVID-19 vaccine (Moderna 50mcg/0.5mL) 12YO+ BIVALENT PF, MDV2COVID-19 vaccine (Pfizer-BioNTech 30mcg/0.3mL) 12YO+ PATRICK-SUCROSE PF, MDV2COVID-19 vaccine (Pfizer-BioNTech 30mcg/0.3mL) PF, MDV 02/12/2021,07/27/2020,07/06/2020INFLUENZA, IIV3 PF (AGE >= 6 MO)04/22/2011 Influenza A (H1N1), Inactivated (Age >=3 Years)05/10/2009Influenza RIV4 (Age 18+ Years) PRESERV FREE03/25/2019Influenza, High-dose Smzpmkpbmyc79/14/2024, 02/17/2016Influenza, High-dose Quadrivalent Weekgiuwgfw02/22/2023Influenza, IIV3 (Age >=3 years)02/26/2014,03/03/2012,04/22/2011,02/24/2010,02/27/2009,03/19/2008 ,03/24/2007,04/03/2006Influenza, EOW025Influenza, Inactivated AIIV4 (Age 65+ Years) Preserv Free02/23/2022,02/05/2021,02/14/2020Influenza, [...] = 0.6 oz pure alcohol)PHQ-2AnswerDate RecordedPHQ-2 TOTAL VIZDJ156Social Connections AnswerDate RecordedDo you often feel lonely or isolated from those around you?0 09/25/2024Financial Resource StrainAnswerDate RecordedDifficulty of Paying Living Szamypvj628/05/2025Difficulty of Paying Living ExpensesNot on file 09/25/2024Food [...] InformationValueDate RecordedSex Assigned at BirthNot on fileLegal CxcLhmszd63/14/2013 5:24 AM CSTGender Identity Not on fileSexual OrientationNot on fileOccupationIndustryJob Start DateJob End DateCLERKNot on fileNot on fileNot on file Obstetrics History GravidaParaTermPretermABIABSABEctopicMultipleLivingLive Fjsywm96416YukvHeozgioGN Total LaborLabor/2nd/2egLutqckFctTfhtVyewQCRXyvA1W4ImbdSyaxCridNmktRzbjVOF Last Filed Vital Signs Vital SignReadingTime TakenCommentsBlood Lvqdrcth124/7905/14/2025 10:45 AM SOFTWARE QUALITY TEST ENGINEER Fvyrb404805/14/2025 10:45 AM TMCOmrljzhiqjo06.9 ??C (98.4 ??F)04/20/2025 12:09 PM CSTRespiratory Eens2320 12:09 PM CSTOxygen Dplpqvokbg94%05/14/2025 10:45 AM CSTInhaled Oxygen Concentration--Qrhhai71.7 kg (169 lb)05/14/2025 10:45 AM YRRQlifpg927 cm (5' 1.42)03/29/2024 11:17 AM CSTBody Mass Index31. 11:17 AM SOFTWARE QUALITY TEST ENGINEER Plan of Treatment DateTypeDepartmentCare Team (Latest Contact Info)Pdpbbbzrnse53/26/2025 2:40 PM CSTOffice Visit [facility] [address] [place] [address] Darleen Dacosta DO [address] [place] [address] 06/07/2025 1:00 PM CSTOrders Only [facility] [address] [place] [address] [place], [place] 06/14/2025 1:00 PM CSTAppointment [facility] [address] [place] [address] 06/14/2025 1:45 PM CSTOffice Visit [facility] [address] [place] [phone] Jessica Gibson, RETAIL DEPARTMENT MANAGER [address] [place] [address] Health MaintenanceDue DateLast DoneCommentsBMI (ht and wt on same day) for age 18+, 08/23/2023, 05/13/2023, Additional history exists Medicare Wellness for age 65+, 03/17/2017, 02/17/2016, Additional history existsDepression screening for age 12+/12/2023, 03/29/2024, 01/23/2022, Additional history existsCOVID-19 vaccine series (9 - Pfizer risk 2024- season)/, 02/09/2024, 03/02/2023, Additional history existsTetanus cpedkqe58/02/2020, 09/01/2019, 10/02/2011, Additional history existsPneumococcal series for age 50+Completed 02/18/2015, 08/30/2007DEXA/DXA scan for age 65+Sgffmpoms26/16/2022, 02/17/2016, 11/11/2012, Additional history existsZoster (shingles) series for age 50+ Xjyeieomo00/07/2024, 09/15/2023, 04/11/2007RSV vaccine for adults or Kihiuufzg04/06/2024Influenza YkzhvgsYvdnripuq54/08/2025, 03/06/2024, 02/23/2022, Additional history existsHepatitis B series for 19+Aged OutNo longer eligible based on patient's age to complete this topic Medical Devices ImplantedTypeAreaManufacturerDevice IdentifierShelf Expiration DateModel / Serial / LotStent Uret 4.7xvq02ce W/Tether - [id number] Implanted:Qty: 1 on 05/04/2008 at [facility]: [facility] Medical Resources [id number]# / / [id number] Uret 4.5vgb47pm Silhouette - [id number] Implanted:Qty: 1 on 12/28/2018 by [facility] UreterApplied Medical Resources [id number]# / / [id number] Pelvic 88n66zc Gynemesh - [id number] Implanted:Qty: 1 on 07/15/2021 [facility] Ethicon Womens H / Uro04/22/2026GPSXL3 / / [id number] Uret 4ccd88sj Contour - [id number] Implanted:Qty: 1 on 08/04/2023 by [facility]: UreterBSC Uppbnqa62/22/[id number] / / [id number]wktqAlouic IdentifierShelf Expiration DateModel / Serial / LotPower Port Isp Mri 6fr [id number] - [id number] Implanted:Qty: 1 on 12/14/2019 by Nida Bello DO at [facility] Explanted:Qty: 1 on 07/17/2020 by [facility]: Subclavian VeinBard Access [employer] Inc [id number] / / [id number] Procedures Procedure NamePriorityDate/TimeAssociated DiagnosisCommentsSCAN-RADIOLOGY REPORT 05/12/2025 12:00 AM SOFTWARE QUALITY TEST ENGINEER SCAN-OPERATIVE/PROCEDURE FFHVLF0304/12/2025 12:00 AM SOFTWARE QUALITY TEST ENGINEER SCAN-OPERATIVE/PROCEDURE YIODUP4303/05/2025 12:00 AM CDT CBC WITH AUTO LZLNFCWMCINHRhjpvaa50/30/2025 12:51 PM CDT Polycythemia vera (HC) [D45] COMP METABOLIC SBPELRfwvcku68/30/2025 12:51 PM CDT Polycythemia vera (HC) [D45] CBC WITH AUTO NSLAYGZXSKCKAhifhda32/30/2025 12:51 PM CDT Polycythemia vera (HC) [D45] XR DXA BONE DENSITY 2 SITES ZOMWWYosjjsw69/16/2022 1:53 PM CDT Post-menopausal from Last 3 Months or Most Recently Relevant to Health Maintenance Results * SCAN-RADIOLOGY REPORT (05/12/2025 12:00 AM SOFTWARE QUALITY TEST ENGINEER)Anatomical RegionLaterality ModalityOther Narrative Authorizing ProviderResult TypeResult StatusScannerOTHERFinal Result * SCAN-OPERATIVE/PROCEDURE REPORT (04/12/2025 12:00 AM SOFTWARE QUALITY TEST ENGINEER) Narrative Authorizing ProviderResult TypeResult StatusScannerOTHERFinal Result * SCAN-OPERATIVE/PROCEDURE REPORT (03/05/2025 12:00 AM CDT) Narrative Authorizing ProviderResult TypeResult StatusScannerOTHERFinal Result * (ABNORMAL) CBC WITH AUTO DIFFERENTIAL (02/20/2025 12:51 PM CDT)ComponentValue Ref RangeTest MethodAnalysis TimePerformed AtPathologist SignatureWHITE BLOOD CELL COUNT4.03.8 - 10.8 Thousand/uL02/21/2025 4:32 AM CDTQUEST DIAGNOSTICSRED BLOOD CELL COUNT3.06(L)3.80 - 5.10 Million/uL02/21/2025 4:32 AM CDTQUEST PVOQGFYFRWMQSGEYXKKLU76.211.7 - 15.5 g/dL02/21/2025 4:32 AM CDTQUEST WDAWEDVNSJITQFCXCLSAZ52.935.0 - 45.0 %02/21/2025 4:32 AM CDT[facility] OKK310.6(H)80.0 - 100.0 fL02/21/2025 4:32 AM CDTQUEST OOVRBIIWJPTZDY09.9(H) 27.0 - 33.0 pg02/21/2025 4:32 AM CDTQUEST IMGXGQEUASBWECG16.132.0 - 36.0 g/dL 02/21/2025 4:32 AM CDTQUEST DIAGNOSTICSComment: For adults, a slight decrease in the calculated MCHC value (in the range of 30 to 32 g/dL) is most likely not clinically significant; however, it should be interpreted with caution in correlation with other red cell parameters and the patient's clinical condition. RDW14.311.0 - 15.0 %02/21/2025 4:32 AM CDTQUEST DIAGNOSTICSPLATELET DYMXM078625 - 400 Thousand/uL02/21/2025 4:32 AM CDTQUEST AULNZXVMESQXCR74.27.5 - 12.5 fL 02/21/2025 4:32 AM CDTQUEST SYBKBCGHTFWIJZKOSIEKFU10.7%02/21/2025 4:32 AM CDT QUEST ZOMCRENCAQYLRDDZPVKQAW74.0%02/21/2025 4:32 AM CDT[facility] JCGMFGBUB89.5%02/21/2025 4:32 AM CDTQUEST DIAGNOSTICSEOSINOPHILS2.0%02/21/2025 4:32 AM CDTQUEST DIAGNOSTICSBASOPHILS0.8%02/21/2025 4:32 AM CDT[facility] ABSOLUTE KOMFDXXOQIT74324495 - 7800 cells/uL02/21/2025 4:32 AM CDTQUEST DIAGNOSTICSABSOLUTE RZYYKZGXZAH9291937 - 3900 cells/uL02/21/2025 4:32 AM CDT [facility] DIAGNOSTICSABSOLUTE ESFEQKZAH923091 - 950 cells/uL02/21/2025 4:32 AM CDT [facility] DIAGNOSTICSABSOLUTE WLZWYLFYDIQ1542 - 500 cells/uL02/21/2025 4:32 AM CDT [facility] DIAGNOSTICSABSOLUTE GVTGKWNJS889 - 200 cells/uL02/21/2025 4:32 AM CDTQUEST DIAGNOSTICSCBC [...] Result Performing OrganizationAddressCity/State/ZIP CodePhone Number [facility] [address] [address], * (ABNORMAL) COMP METABOLIC PANEL (02/20/2025 12:51 PM CDT)ComponentValueRef RangeTest MethodAnalysis TimePerformed AtPathologist CqfmtcwooNMLGUK297454 - 146 mmol/L1 4:00 AM CDTQUEST DIAGNOSTICSPOTASSIUM4.43.5 - 5.3 mmol/L 02/21/2025 4:00 AM CDTQUEST MSJUBMHAURYHTOMIRRW27(L)98 - 110 mmol/L1 4:00 AM CDTQUEST DIAGNOSTICSCARBON MPXWQLF3585 - 32 mmol/L1 4:00 AM CDTQUEST OIORDXHNALTJEKFRLE380(H)65 - 99 mg/dL02/21/2025 4:00 AM CDTQUEST DIAGNOSTICSComment: ? Fasting reference interval For someone without known diabetes, a glucose value between 100 and 125 mg/dL is consistent with prediabetes and should be confirmed with a follow-up test. CALCIUM9.98.6 - 10.4 mg/dL02/21/2025 4:00 AM CDTQUEST DIAGNOSTICSCREATININE0.99 (H)0.60 - 0.95 mg/dL02/21/2025 4:00 AM CDTQUEST DIAGNOSTICSBUN/CREATININE RATIO 23(H)6 - 22 (calc)02/21/2025 4:00 AM CDTQUEST KNWMJYQYKXLLWZP11(L)> OR = 60 mL/min/1.46t39402/21/2025 4:00 AM CDTQUEST DIAGNOSTICSALBUMIN3.93.6 - 5.1 g/dL 02/21/2025 4:00 AM CDTQUEST DIAGNOSTICSPROTEIN, TOTAL7.36.1 - 8.1 g/dL02/21/2025 4:00 AM CDTQUEST DIAGNOSTICSBILIRUBIN, TOTAL0.60.2 - 1.2 mg/dL02/21/2025 4:00 AM CDTQUEST DIAGNOSTICSALKALINE EKBOMOUKQWT0851 - 153 U/L1 4:00 AM CDT [facility] DLXWPNONVAKYOK725 - 29 U/L1 4:00 AM CDTQUEST LYBFNMCVGKBUUQ8470 - 35 U/L1 4:00 AM CDTQUEST DIAGNOSTICSUREA NITROGEN (BUN)237 - 25 mg/dL 02/21/2025 4:00 AM CDTQUEST DIAGNOSTICSGLOBULIN3.41.9 - 3.7 g/dL (calc) 02/21/2025 4:00 AM CDTQUEST DIAGNOSTICSALBUMIN/GLOBULIN RATIO1.11.0 - 2.5 (calc) 02/21/2025 4:00 AM CDTQUEST DIAGNOSTICSSpecimen (Source)Anatomical Location / LateralityCollection Method / VolumeCollection TimeReceived TimeBloodBLOOD SPECIMEN / UnknownQuest Collect / Rrhdhkh8702/20/2025 12:51 PM CDT02/20/2025 12:52 PM CDT Narrative [facility] - 02/21/2025 4:00 AM CDT FASTING:UNKNOWN FASTING: UNKNOWN Authorizing ProviderResult TypeResult StatusJessica Gibson NPCHEMISTRYFinal Result Performing OrganizationAddressCity/State/ZIP CodePhone Number [facility] [address] [address], * (ABNORMAL) XR DXA BONE DENSITY 2 [...] Patients: Results are automatically released to your [email or web address]) account once available, in compliance with federal regulations. This means that you may see your results before your provider has had a chance to review them. Please allow 2-3 business days for your provider to comment on the results. XR DXA Bone Mineral Density (BMD) EXAM LOCATION: [facility] [address] [facility] [address] PATIENT NAME: oDlly Chau DATE OF : 1940 EXAM DATE: [...] two scanners are made by the same kindergarten assistant. PROCEDURE: Dual-energy x-ray absorptiometry performed with routine [...] Most Recently Relevant to Health Maintenance [place] [id number] Advance Directives TypeDate RecordedPatient RepresentativeExplanationHealthcare Directive10/09/2011 1:24 PMHEALTH CARE DIRECTIVE, [facility], 11/17/10Healthcare Directive 08/09/2007 * Full Code (Latest [...] Reviewed Preferences * Full Code Date ActivatedDate RrlktabeekgLhzbfrgg86/8/2021 2:52 PM04/03/2021 7:26 PM QuestionAnswerCommentsCode Status Discussion:* Reviewed Preferences Care Teams Team MemberRelationshipSpecialtyStart DateEnd Date Darleen Dacosta DO [address] [place] [address] PCP - [facility]12/23/15 Bk Sigala MD Surgery - Urology10/02/11 Yennifer Baird MD Ophthalmology Surgery11/22/12 Divya Dudley MD [address] [place] [address] OncologyHematology and Oncology12/06/19 Jessica Gibson NP [address] [place] [address] OncologyNurse Practitioner - Family12/06/19
--- OUTSIDE RECORDS SUMMARY | 2025-05-17 01:02 | XMS_ITS | Clinical Summary ---
Author Organization [facility] Address [address] [place] [address] Phone Care Team Providers Care Music Researcher Name Role Phone Darleen Dacosta DO Primary Care Provider Allergies Active AllergyReactionsCriticalityNoted DateCommentsAlendronateOther (see comments)Zhtrxa7105/04/2008 Pelvic floor dysfunction PELVIC FLOOR PAIN Bee IdfafExzfwiwz29/02/2022 has done fine with bees in the past. Could have been a hornet. Medications MedicationSigDispense QuantityRefillsLast FilledStart DateEnd DateStatus acetaminophen (TYLENOL) 500 MG tablet Take 1,000 mg by mouth every 6 (six) hours if nkimsc9604/29/2020Active Ascorbic Acid (Vitamin C) 500 MG capsule [...] Place 4 mg under the tongue if zdcuxw8205/21/2023ctive simvastatin (ZOCOR) 20 MG tablet Take 20 mg by mouth 1 (one) time each day in the bjbewdc7703/29/2023ctive vedolizumab (Entyvio) 300 MG injection Infuse 300 mg into a venous catheter every 2 yskdtc4502/19/2023ctive hydroxyurea (HYDREA) 500 MG capsule Take by mouth 1 (one) time each day Take at the same time each day.Active Active Problems ProblemNoted DateDiagnosed DateCalculus of bvtego67 Family History Medical HistoryRelationCommentsProstate cancerFatherStrokeMotherRelationStatus CommentsFatherDeceasedMotherDeceased Social History Tobacco UseTypesPacks/DayYears UsedDateSmoking Tobacco: NeverSmokeless Tobacco: Never Tobacco Cessation:Counseling Given: Not Answered Alcohol UseStandard Drinks/WeekCommentsNot Currently0 (1 standard drink = 0.6 oz pure alcohol)CommentsUnknownSex and Gender InformationValueDate Recorded Sex Assigned at BirthNot on fileLegal KqhQvmyvh49/21/2023 11:55 AM ESTGender IdentityNot on fileSexual OrientationNot on file Last Filed Vital Signs Vital SignReadingTime TakenCommentsBlood Gwswatsx274/8706/03/2023 12:48 PM CERTIFIED ATHLETIC TRAINER Rzmql12906/11/2024 12:48 PM CSTTemperature--Respiratory Rate--Oxygen Saturation- -Inhaled Oxygen Concentration--Kwimbo83.8 kg (167 lb)06/03/2023 12:48 PM CERTIFIED ATHLETIC TRAINER Zchlth183.9 cm (5' 1)06/03/2023 12:48 PM CSTBody Mass Index31.55006/03/2023 12:48 PM CERTIFIED ATHLETIC TRAINER Plan of Treatment Health MaintenanceDue DateLast DoneCommentsInfluenza Vaccine (#1)01/22/2025 02/23/2022, 02/05/2021, 02/14/2020, Additional history existsPneumococcal Vaccine: 50+ MmquiUtiyzunqi16/28/2015, 08/30/2007Hepatitis B VaccineAged OutNo longer eligible based on patient's age to complete this topic Insurance * Guarantor: Vinicius Chau TypeRelation to PatientDate of BirthPhone Billing AddressPersonal/KoxzlkTeyb29/18/1941 [address] [place] [address] [place] [address] Care Teams Team MemberRelationshipSpecialtyStart DateEnd Date DeterDarleen mora DO [address] [place] [address] PCP - GeneralFamily Ohpbopec57/21/23
--- OUTSIDE RECORDS SUMMARY | 2025-05-17 01:03 | XMS_ITS | CCD ---
Author Name Interface, [id number] lity Address [address] [place] [address] [address] [address] 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 0123 POLYCYTHEMIA VERA - ALISE CORBYT, DO Medications Date Name Route Dose Frequency Instructions Start Date End Date Status Fill Status Indication 12/04/2019 Ascorbic Acid Oral PO 1.0 tablet daily yveipsca19/13/2020Docusate Sodium OralPO1.0 capsulePRNfor constipationactive 12/04/2019Ferrous Sulfate OralPO1.0 ckrdaatvwpqcimuwk37/13/2020Tamsulosin OralPO 1.0 gfunqqtxyiwchqhqsi27/13/2020Hydrochlorothiazide OralPO1.0 capsuledailyactive 12/04/2019Vitamin E Gfhdmkzykj97/13/2020Clopidogrel OralPO1.0 tabletdailyactive 12/04/2019Hydroxyurea OralPO1.0 qzjlxwgYGWzbemzo82/13/2020Aspirin OralPO1.0 wlncdsbpdugjyfqlp55/13/2020Cholecalciferol OralPO1.0 capsuledailyactive 12/04/2019Simvastatin OralPO1.0 tabletdailyactive Problems Diagnosis Status Date of Diagnosis Resolution Date Polycythemia vera Active Social History Date Name Value 12/04/2019 Sex Female
--- OUTSIDE RECORDS SUMMARY | 2025-05-17 01:03 | XMS_ITS | Patient Health Record ---
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 Name Role Phone None, No PCP Primary Care Provider UnavailHeber Mustafa Unavailable [phone] Heber Estevez Unavailable Unavailable Paul Velez Unavailable [phone] Allergies Allergen (clinical drug ingredient) Drug/Non Drug [...] DetectedNot DetectedKlebsiella aerogenesNot DetectedNot DetectedKlebsiella pneumoniaeNot DetectedNot Pybmscsdkvxobgs-quzw-nsogijkya (blaNDM) ResistanceNot DetectedNot DetectedMethicillin/Oxacillin (mecA) ResistanceNot DetectedNot [...] a day; Duration: 90 days5ActiveTamsulosin HCl ActiveGemtesaActiveVitamin J80PrzykxxjvxdKURCFYndwwnprfBfrlhdQssfvhe 81Active FiberActiveCalcium CitrateActiveSimvastatinActiveHydroxyureaActive Social History Tobacco Use: Social History Observation Description Date Details (start date - stop date) Never Smoker NA - NA Tobacco Control (Standard) Question Answer Notes Tobacco use: Nonsmoker Problems Problem Type SNOMED Code ICD Code Onset Dates Problem Status W/U Status Risk Notes Problem Atrophy of vagina (074840458) Vaginal atr ophy (N95.2) Activeconfirmed Vital Signs Blood pressure diastolic 86 mm Hg 03/14/2025 marimar ght declined. Lmq, ccma Height 62 in 03/14/2025 weight declined . Lmq, ccma Blood pressure systolic 118 mm Hg 03/14/2025 weig ht declined. Lmq, ccma Encounters Encounter Location Date Provider Diagnosis [facility] [address] [id number] 03/15/2025 Heber Georgetown Dysuria R30.0 [facility] [address] [place] [address] 03/14/2025 Heber Georgetown Vaginal atrophy N95.2 ; PFD (pelvic floor dysfunction) M62.89 and Yeast infection B37.[address] [facility] [address] [place] [address] 03/15/2025 [facility] [place] [address] [place] [address]/ [facility] [id number]/[facility] [address] [place] [address]/[facility] [place] [address]/23/2025 Heber GeorgetownVaginal atrophy N95.2 and Yeast infection B37.9[facility] [place] [address]/[facility] Assessments Encounter Date Diagnosis (ICD Code) Assessment [...] the care of the patient. We discussed [facility] diagnosis, treatment plans and care options/. 03/14/2025PFD (pelvic floor dysfunction) (ICD-10 - M62.89)03/15/2025Dysuria (ICD-10 - R30.0)03/15/2025Vaginal atrophy (ICD-10 - N95.2)03/14/2025east infection (ICD-10 - B37.9)03/15/2025east infection (ICD-10 - B37.9)03/14/2025 Other Plan Of Treatment Next Appt Details Provider Name:Arlene Melgar, 0 05/30/2025 11:00:00 AM, [address] [place], [address], Provider Name:Arlene Melgar, 0 05/30/2025 11:00:00 AM, [address], [place], [address], Provider Name:Arlene Melgar, 0 06/06/2025 10:45:00 AM, [address], [place], [address], Provider Name:Arlene Melgar, 0 06/06/2025 10:45:00 AM, [address], [place], [address], Provider Name:Arlenebob Melgar, 0 06/13/2025 10:30:00 AM, [address], [place], [address], Provider Name:Arlene Melgar, 0 06/13/2025 10:30:00 AM, [address], [place], [address], Provider Name:Arlene Ramón, 0 06/20/2025 01:00:00 PM, [address], [place], [address], Provider Name:Arlenebob Melgar, 0 06/20/2025 01:00:00 PM, [address], [place], [address], Provider Name:Paul Velez, 06/28/2025 11:15:00 AM, [address], [place], [address], Provider Name:Arlene Melgar, 0 06/28/2025 11:15:00 AM, [address], [place], [address], Provider Name:Paul Velez, 07/05/2025 10:30:00 AM, [address], [place], [address], Provider Name:Arlenebob Melgar, 0 07/05/2025 10:30:00 AM, [address], [place], [address], Provider Name:Arlene Melgar, 0 07/11/2025 11:00:00 AM, [address] [place], [address], Provider Name:Arlene Ramón, 0 07/11/2025 11:00:00 AM, [address] [place], [address], Provider Name:Arlene Melgar, 0 07/18/2025 10:30:00 AM, [address], [place], [address], Provider Name:Arlene Melgar, 0 07/18/2025 10:30:00 AM, [address] [place], [address], Provider Name:Paul Agustin, 07/24/2025 11:00:00 AM, [facility] [place], [address], Provider Name:Arlene Melgar, 0 07/24/2025 11:00:00 AM, [address] [place], [address], Provider Name:Arlene Ramón, 0 08/01/2025 10:30:00 AM, [address] [place], [address], Provider Name:Arlene Melgar, 0 08/01/2025 10:30:00 AM, [address] [place], [address], Insurance Providers Payer Name Payer Address Payer Phone Subscriber Number Group Number Insured Name Patient Relationship to Insured Coverage Start Date Coverage End Date [employer] [address] (Ins. Bill) [address] [address] [address] [phone] [id number], PatriciaSelf - patient is the insured Medical (General) History Medical History History ICD Code Polycythemia vera OsteoporosisBleeding problemsStrokeHigh CholesterolHeart Disease/AttackHigh Blood PressureChicken poxAsthma (as a child)ColitisSurgical History Surgery Date(Month/Year) Heel Spur Removal Total vaginal hysterectomy and BSOR Hip dnseypslzwm2820qikmzm stones removed by lsjopjdtmgm1485Vnqthbfsiryakru History Reason Date(Month/Year) childbirth
--- OUTSIDE RECORDS SUMMARY | 2025-05-17 01:03 | XMS_ITS | Data Portability ---
Author Organization [facility], [facility] Address [address] [place] [address] Care Team Providers Care Copy Director Name Role Phone ARVIN AVELAR Primary Care Provider [phone] Assessment No assessment recorded. Plan of Treatment Reminders Order DateSubmit DateProviderLast Modified ByOrganization DetailsLast Modified TimeDetailsAppointmentsNone recorded.Laburinalysis, unifpinp03 [facility], [address], [place], [address], Ph [phone]/02/2025 14:22:45urinalysis, zjnprpco28tfleming29 [facility], [address], [place], [address], 01/08/2025 14:48:45urinalysis, rjhcnmtc39tfleming29[facility], [address], [place], [address], Ph [phone] 15:44:24ReferralNone recorded.Proceduresbladder scan (PROC)/ rzwqhygv80[facility], [address], [place], [address], [address]/ 14:48:51bladder scan (PROC)doreilley [facility], [address], [place], [address], 08/28/2024 14:31:22bladder scan (PROC)tfleming29[facility], [address], [place], [address], 10 15:44:24SurgeriesNone recorded.ImagingNone recorded.Medication Orderstamsulosin 0.4 mg xkmrmis64[id number], [address] [place], [place], [id number], 03/03/2024 15:53:07 Patient TargetsNo targets recorded. Patient Instructions Encounter Date Encounter Id Patient Instructions Last Modified By Organization Details Last Modified Time 03/03/2024 [id number] will continue on tamsulosin and gemtesa, rtc 12 weeks. [email or web address] Not available 03/03/2024 15:54:15 06/05/2024 [id number] will continue on both meds and rtc 12 weeks. Not available 06/05/2024 12:06:16 08/28/2024 [id number] will continue same meds and rtc in 12 weeks. Not available 08/28/2024 14:37:28 01/08/2025 [id number] continue tamsulosin and gemtesa, rtc 12 weeks for UA and med refill. [email or web address] Not available 01/08/2025 14:55:54 04/02/2025 [id number] doing better after treatment for vaginitis. will have her follow up with Dr Sharif in the spring with NEY blackwood Not available 04/02/2025 14:29:40 Reason for Referral None Reported. Results Created Date Observation Date Name Description Value Unit Range Abnormal Flag Note LastModifiedBy Organization Detail LastModifiedTime 03/03/2024 03/03/2024 bladder scan (PROC) Volume (in mL) 11m l Not Available[facility] [address], [place], [address], 22/ 17:00:021/urinalysis, dipstickBLOODNegativeNot Available [facility] [address], [place], [address], 20 17:00:011/urinalysis, dipstickBILIRUBINNegativeNot Available [facility] [address], [place], [address], 98 17:00:011/urinalysis, dipstickUROBILINOGEN0.2 mg/dL (Norm)Not AvailableU[facility] [address], [place], [address], 06 17:00:011/urinalysis, dipstickKETONESNegativeNot Available [facility] [address], [place], [address], 86 17:00:011urinalysis, dipstickPROTEINNegativeNot Available [facility] [address], [place], [address], 58 17:00:011urinalysis, dipstickNITRITESNegativeNot Available [facility] [address], [place], [address], 55 17:00:011/urinalysis, dipstickGLUCOSENegativeNot Available [facility] [address], [place], [address], 79 17:00:0110//567854/03/2024urinalysis, dipstickp.H.5.5Not AvailableU[facility] [address], [place], [address], 86 17:00:0110/408037/03/2024urinalysis, dipstickS.G. (Specific [place])1.025Not AvailableU[facility] [address], [place], [address], 80 17:00:0110//03/2024urinalysis, dipstickLEUKOCYTESNegativeNot Available [facility] [address], [place], [address], 83 17:00:0104/613975/ladder scan (PROC)Volume (in mL)0Not Available [facility] [address], [place], [address], 39 16:43:0008//ladder scan (PROC)Volume (in mL)4Not Available [facility] [address], [place], [address], 88 16:46:5508//urinalysis, dipstickBLOODTrace (5 RBC/uL)Not Available[facility] [address], [place], [address], 34 16:46:5308//urinalysis, dipstickBILIRUBINNegativeNot Available [facility] [address], [place], [address], 98 16:46:5308//urinalysis, dipstickUROBILINOGEN0.2 mg/dL (Norm)Not AvailableU[facility] [address], [place], [address], 90/ 16:46://urinalysis, dipstickKETONESNegativeNot Available [facility] [address], [place], [address], 87 16:46://urinalysis, dipstickPROTEINNegativeNot Available [facility] [address], [place], [address], 19 16:46:/urinalysis, dipstickNITRITESNegativeNot Available [facility] [address], [place], [address], 55 16:46:/urinalysis, dipstickGLUCOSENegativeNot Available [facility] [address], [place], [address], 53/ 16:46://urinalysis, dipstickp.H.6.5Not Available[facility] [address], [place], [address], 14/ 16:46:/urinalysis, dipstickS.G. (Specific [place])1.020Not AvailableU[facility] [address], [place], [address], 29/ 16:46:/urinalysis, dipstickLEUKOCYTESNegativeNot Available [facility] [address], [place], [address], Ph [phone]/ 16:46:5311//urinalysis, dipstickBLOODTrace (5 RBC/uL)Not Available[facility] [address], [place], [address], 20 16:50:5811//urinalysis, dipstickBILIRUBINNegativeNot Available [facility] [address], [place], [address], Ph [phone] 16:50:5811/urinalysis, dipstickUROBILINOGEN0.2 mg/dL (Norm)Not Available[facility] [address], [place], [address], 80 16:50:5811//urinalysis, dipstickKETONESNegativeNot Available [facility] [address], [place], [address], 04 16:50:5811/urinalysis, dipstickPROTEINNegativeNot Available [facility] [address], [place], [address], 44 16:50:5811/urinalysis, dipstickNITRITESNegativeNot Available [facility] [address], [place], [address], 08 16:50:5811//urinalysis, dipstickGLUCOSENegativeNot Available [facility] [address], [place], [address], 85/ 16:50:5811/urinalysis, dipstickp.H.5.5Not Available[facility] [address], [place], [address], 19/ 16:50:5811/urinalysis, dipstickS.G. (Specific [place])1.025Not AvailableU[facility] [address], [place], [address], 38/ 16:50:5811/urinalysis, dipstickLEUKOCYTESNegativeNot Available [facility] [address], [place], [address], 80/ 16:50:58 Result Notes None recorded. Problems Name Problem SNOMED Code Status Onset Date Resolution Date Notes Provider Name and Address Organization Details Recorded Time Kidney stone 53848297 [facility] Amwejmb0612/03/2023 15:17:51Irritable bowel rdswrjoo96925444Cvzcpt 04[facility]11/2007[facility] Hhpdqpp9912/03/2023 15:17:51Disorder of skeletal tkvyfe44496973 Xsxmnm5008/06/2007[facility] Ckejwmy5612/03/2023 15:17:51Hypertensive hjdnleia30768194Skarbi 04/01/2009[facility] Swjqzxi7512/03/2023 15:17:51History of polyp of lfgqf053332459 Nkupir0309/09/2011[facility] Hxxplxq9512/03/2023 15:17: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 239887857Xsgdku19/26/2014[facility] Txmwofd3812/03/2023 15:17:51Patient encounter qygseb609378160Vdyobu 01/16/2014[facility] Zstvuuu9412/03/2023 15:17:35Zksssmncwyqq46787821Ufiirl01/29/2017 Yarelis Prim [facility], [facility] Runsmdg4312/03/2023 15:17:51Right sided abdominal qozq483639794 Kusijf1501/02/2018Haley Prim [facility], [facility] Rtnlygg7312/03/2023 15:17:51Protein level - isjzrjj725131296Coxjpv 01/02/2018Haley Prim [facility], [facility] Zzvunet0912/03/2023 15:17:82Abggowjdinlw264520668Vajphw23/12/2018 Yarelis Prim null, [facility] Vgmpptf2912/03/2023 15:17:51Diverticulum of large intestine without vdzsayknna034335783Ibpkxx44/12/2018[facility] Lkruhyq2212/03/2023 15:17:51Mass of right adrenal gland 75860067686537554Fxoztg42/16/2018Haley Prim [facility] Cmqexag5612/03/2023 15:17:51History of cerebrovascular accident 386671706Dfljsd99/06/2019[facility] Xkwvvqv3112/03/2023 15:17:51Ureteric cmvzc52338095Wbkgiz54/15/2019 N20.1 : Calculus of ureterNot YusnubobxFlstkaItcrqx10/18/2020 02:06:08 Polycythemia vera (clinical)845800706Hjtide09/16/2020Haley Prim [facility], [facility]12/03/2023 15:17:51Acute gastric ulcer without hemorrhage AND without qklwyxiowop89732804Zqznxt03/01/2020Haley Prim [facility] Nqbhvxu1312/03/2023 15:17:61Bzdzzmwdtvqxlt9144822Fzgpus11/11/2020 Yarelis Prim [facility], [facility] Wybrhqu9312/03/2023 15:17:51Recurrent urinary tract infection 361246063Qokefc89/09/2024Tomaribell Maddox MD [address] [place] [address],[address], [address], [facility]/02/2023 15:33:10Frank hbmwbwjay081818172Oespjn 07/02/2023Tomaribell Maddox MD [address] [place] [address],[address] [address], [facility] Pemiord4207/02/2023 15:34:68Xxfxbxn91339720Ubruzf63/31/2024Feliz Maddox MD [address] [place] [address],[place] [address], [place], [address], [facility]10/22/2023 12:34:25Increased frequency of urination 968531923Ckdrxr36/31/2024Feliz Maddox MD [address] [place] [address],[place] [address], [place], [address], [facility]10/22/2023 12:34:26 Problem Notes None recorded. Procedures Surgical History Date Name Laterality Status Provider Name and Address Organization Details Recorded Time 01/08/2025 Bladder Scan Adan Maddox MD [address] [place] [address],[place] [address], [place], [address], [facility] Nglavxz9401/08/2025 14:48:46045Bladder ScancompletedDezSt. [facility] Prmriho7808/28/2024 14:31:0414Bladder Scancompleted Feliz Maddox MD [address] [place] [address],[place] [address], [place], [address], [facility] Mctfdwm54/11/2024 15:44:074ColonoscopycompletedDG[facility] Yvwckrl31/10/2025 14:21:1704Bladder Scancompleted Yarelis [facility] Hhiiqtp9112/03/2023 15:23:4Bladder Scan Adan Maddox MD [address] [place] [address],[place] [address], [place], [address], [facility] Jdbqfvq5210/22/2023 12:26:34005/24/2022total replacement of hip Adan Maddox MD [address] [place] [address],[place] [address], [place], [address], [facility] Zkamcvy3710/22/2023 12:17:10005/24/2019colonoscopycompletErin Maddox MD [address] [place] [address],[address] Aacgbcr4806/05/2024 11:45:34reconstruction of pelvic floorcompleted Feliz Maddox MD [address] [place] [address],[address] Cktzcus5609/15/2021 15:47:54 Imaging Results None recorded. Procedure Notes None recorded. Medical Equipment None Reported. Allergies Allergen ID Allergen Name Allergen Category Reaction Reaction Severity Criticality Documentation Date Start Date Code Code System Note Provider Name and Address Organization Details Recorded Time 129040 Fosamax medication abdominal pain Not available Not [id number] MD Varsha [address] [place] [address] Lvvxqbx06/01/2021 15:05:25656875ixmdzzkslsk sodiummedicationother Not available high/04/20082380219911LaPnrhWUXLSN FLOOR PAINDezera Riddhi [facility]08/28/2024 14:29:06042860emivefxtwo acidNot availableother Not available [facility]/04/20081925632994BhInwkVklbet floor dysfunction PELVIC FLOOR PAIN Dezerwagner Hannon [facility]08/28/2024 14:29:60077266tvrai bee venomenvironment angioedema Not available high/8018747252FpYpycfzb done fine with bees in the past. Could have been a hornet. unrecognized reaction (text: Throat Swelling/Closing, code: [id number]) (from external source)Feliz Maddox MD [address] [place] [address],[address] Ayuzitj7301/08/2025 14:42:17 Medications Name Sig Start Date Stop [...] AvailableNot AvailableNot Available cefuroxime axetil 250 mg efgtag854completedNot AvailableNot AvailableNot Availableketoconazole 2 % shampooWASH SCALP 1-2X WEEKLY. LATHER AND LET SIT FOR 3-5 MINUTES BEFORE RINSING.activeNot AvailableNot AvailableNot Available cefpodoxime 200 mg lmyvut624completedNot AvailableNot AvailableNot Availableoxybutynin chloride ER 10 mg [...] EVERY DAY4completedNot AvailableNot AvailableNot Availableprednisone 5 mg dcxpeg244completedNot AvailableNot AvailableNot Availablelidocaine-prilocaine 2.5 %-2.5 % topical kit12/14/2019 4completedNot AvailableNot AvailableNot AvailableRemicade 100 mg intravenous solutionInject by intravenous route.activeNot AvailableNot Available Not Availablemeclizine 12.5 mg tabletTAKE 1 TABLET BY MOUTH 3-4 TIMES PER DAY NEEDED. MAY USE 1-2 TABLETS NEEDED EVERY 6-8 HOURS FOR UAMVKZILK70/09/2024 completedNot AvailableNot AvailableNot Availablemetronidazole 500 mg tabletTAKE [...] days.4completedNot AvailableNot AvailableNot Availableaspirin 81 mg tablet,delayed gmusblw94 mg by oral route.03/21/2020activeNot AvailableNot AvailableNot Availableacetaminophen 500 mg tabletTake 1000 mg by oral route. 4completedNot AvailableNot AvailableNot Available triamcinolone acetonide 0.1 % topical creamAPPLY TWICE DAILY TO ECZEMA UP TO 2 WEEKS THEN TAKE A 2 WEEK BREAK. REPEAT NEEDED.activeNot AvailableNot AvailableNot Availableoxycodone-acetaminophen 5 mg-325 mg iatnjf7910/22/2023 completedNot AvailableNot AvailableNot Availablehydrocortisone 2.5 % topical cream with perineal applicatorAPPLY TOPICALLY TO HEMORRHOIDS TWICE DAILY NEEDED FOR TKDLVZZBVI17/09/2024ompletedNot AvailableNot AvailableNot Available prednisolone acetate 1 % [...] CAPSULE BY MOUTH TWICE DAILY NEEDED FOR CONDEKIEZBBL78/31/2024ompletedNot AvailableNot AvailableNot Availableomeprazole 20 mg capsule,delayed releaseTAKE 1 CAPSULE BY MOUTH EVERY DAY BEFORE A MEALactiveNot AvailableNot AvailableNot Availablecephalexin 500 mg tabletTAKE 1 TABLET BY MOUTH EVERY 6 HOURS FOR 7 DAYS4completedNot AvailableNot AvailableNot Availablemupirocin 2 % topical ointmentAPPLY TOPICALLY TO VULVA TWICE DAILYactiveNot AvailableNot AvailableNot Availableibuprofen 600 mg gemgbm5807/02/2023ompletedNot AvailableNot AvailableNot Availableestradiol 0.01% (0.1 mg/gram) vaginal creamUSE DIRECTED VAGINALLY TWICE WEEKLYactiveNot AvailableNot AvailableNot Availablemethylprednisolone 4 mg tablets in a dose packFOLLOW PACKAGE GTUNUSWIXT99/09/2024ompletedNot AvailableNot AvailableNot Availableipratropium bromide 42 mcg (0.06 [...] TO 6 HOURS NEEDED FOR NAUSEA OR TFWZMRYT16ompletedNot AvailableNot AvailableNot Available amoxicillin 875 mg-potassium clavulanate 125 mg kjkpic1907/02/2023ompletedNot AvailableNot AvailableNot Availableoxycodone 5 mg tabletTAKE ONE-HALF TO 1 TABLET BY MOUTH EVERY 4-8 HOURS NEEDED FOR PAIN4completedNot AvailableNot AvailableNot Availableneomycin 3.5 mg/g-polymyxin B 10,000 unit/g- dexameth 0.1 % eye oint07/02/2023ompletedNot AvailableNot AvailableNot Availablecholecalciferol (vitamin D3) 25 mcg (1,000 unit) xcrgowi2544 units by oral route.10/20/2019activeNot AvailableNot AvailableNot AvailablePremarin 0.625 mg/gram vaginal creamAPPLY A SMALL AMOUNT OF CREAM 1/2 INCH RIBBON OVER THE URETHRA AND OUTER VAGINAL AREA AT BEDTIMEactiveNot AvailableNot AvailableNot Availablenitrofurantoin monohydrate/macrocrystals 100 mg gnqclwy1207/02/2023 completedNot AvailableNot AvailableNot Availablesolifenacin 5 mg tabletTAKE 1 TABLET BY MOUTH EVERY DAY4completedNot AvailableNot AvailableNot Availablemesalamine 1,000 mg rectal suppositoryUNWRAP AND INSERT 1 SUPPOSITORY RECTALLY EVERY DAY AT KDFYSRD59/11/2024completedNot AvailableNot AvailableNot Availablemesalamine 1.2 gram tablet,delayed releaseTAKE 4 TABLETS BY MOUTH EVERY DAY WITH A MEAL07/02/2023ompletedNot AvailableNot AvailableNot Available hydrochlorothiazide 12.5 mg tabletactiveNot AvailableNot AvailableNot Available mesalamine rectal susp enema with cleansing wipes 4 gram/60 mL kitINSERT 60ML RECTALLY EVERY DAY AT KGNOBBC67/09/2024completedNot AvailableNot AvailableNot AvailableLinzess 72 mcg capsuleTAKE 1 [...] Updated DateTime 06/05/2024 154.94 cm 31.2 kg/m2 17490.74 g Feliz Maddox MD [address] [facility],[address], [address], [place] - [facility] 06/05/2024 11:43:34 Date Recorded Body height Body mass index (BMI) Body weight Provider Name and Address Organization Details Last Updated DateTime 08/28/2024 154.94 cm 32.1 kg/m2 75958.7 g [facility] 08/28/2024 14:27:59 Date Recorded Body height Body mass index (BMI) Body weight Provider Name and Address Organization Details Last Updated DateTime 01/08/2025 154.94 cm 32.1 kg/m2 27708.7 g Feliz Maddox MD [address] [place] [address], [address] [place] [address] 01/08/2025 14:41:55 Date Recorded Body height Body mass index (BMI) Body weight Provider Name and Address Organization Details Last Updated DateTime 03/03/2024 154.94 cm 31.2 kg/m2 08239.74 g Feliz Maddox MD [address] [place] [address] 03/03/2024 15:35:26 Date Recorded Body height Body mass index (BMI) Body weight Provider Name and Address Organization Details Last Updated DateTime 04/02/2025 154.94 cm 32.1 kg/m2 29496.7 g [facility] 04/02/2025 14:15:05 Social History Question Answer Notes LastModified by Organization D etails LastModified Time Tobacco Smoking Status Never Smoker Feliz Maddox MD [address] [place] [address], [address] [place] [address], [facility] Orudjni48/01/2021 15:09:21What Is Your Level Of Caffeine Consumption?Kppywvooynmc89Ajevmdnbcuk not asngnubup96/01/2021What Was The Date Of Your Most Recent Tobacco Screening?04/02/2025doreilleyInformation not qpoowdzgg92/10/2025What Is Your Relationship Status?Ndmvqvzzozbiaul79Llslorievoz not yyxjrchjh75/01/2021Has Tobacco Cessation Counseling Been Provided?No ssntedrs56Ynylhrmwlat not /18/2025 Sex: Unknown Functional Status Question Answer Note LastModified by Organization D etails LastModified Time Do you use any illicit or recreational drugs? No ralyxobo12Ayizwnhtjnx not ujizgcdov65/01/2021o you or have you ever used any other forms of tobacco or nicotine?Korsdeymhv91Blgxobyrgsj not available 02/21/2021What is your level of alcohol consumption?Jhyjobkngjkq42Zkvhuovpvjg not oqudtykcc20/01/2021re you currently employed?Rxulohdinf72Oveoyaevziw not dgkhjcopm91/01/2021 Mental Status None recorded. Family History Relationship Description Onset Age of this Age Resolved Age Notes LastModified by Organization Details LastModified Time Father Family history of malignant neop lasm of prostate xuelfyio25Fzj /01/2021 15:07:44 Notes:Mother had a stroke Medical History Condition Response Sexually Transmitted Infection N Diabetes N Other N Bleeding Disorder N High Blood Pressure Y Kidney Stones Y Cancer Y Depression N Lung Disease N High Cholesterol Y GERD/Acid Reflux N Heart Disease Y Gynecological History Statement/Question Response Sexually Active? N Obstetrics History GPAL:G 3 P 0 0 0 0 Immunizations Vaccine Type Date Status Note Provider Nam e and Address Organization Details Recorded Time Influenza, adjuvanted, trivalent, PF 02/22/2018 comp leted Malia Tesfaye null, [facility] Vitsvsj7507/15/2023 11:50:52Influenza, adjuvanted, trivalent, PF 03/17/2017completedDebra [place] [facility] Tkpubli5907/15/2023 11:50:52Influenza, recombinant, quadrivalent, PF03/25/2019completedDebra Brien null, [facility] Aesvqdy4307/15/2023 11:50:52Influenza, adjuvanted, quadrivalent, PF 02/14/2020completedDebra Brien null, [facility]07/15/2023 11:50:52COVID-19, mRNA, LNP-S, PF, 30 mcg/0.3 mL dose07/06/2020ompletedDebra [place] null, [facility] Vhfjdtm1607/15/2023 11:50:52COVID-19, mRNA, LNP-S, PF, 30 mcg/0.3 mL dose1completedDebra [place] null, [facility] Axyzcsu0601/05/2025 10:22:46pneumococcal polysaccharide PPV23 08/30/2007completedDwil Hannon null, [facility]08/28/2024 14:28:68Wecs6710/02/2011completedDebra [place] null, [facility]01/05/2025 10:22:46Pneumococcal conjugate PCV 1309/ completedDebra [place] null, [facility]01/05/2025 10:22:46zoster live04/11/2007completedDezera OReilley null, [facility]08/28/2024 14:28:53Influenza, high-dose, trivalent, PF 02/17/2016completedDebra Brien null, [facility]07/15/2023 11:50:52Influenza, split virus, trivalent, hczlozxoqbsv28/04/2010completedD [place] null, [facility]01/05/2025 10:22:46Influenza, split virus, trivalent, gvqoocsdlbkc34/06/2014completedDebra Brien null, [facility]01/05/2025 10:22:46Influenza, split virus, trivalent, prosbwojwsse55/07/2009completJacindawil Lanzailley null, [facility]08/28/2024 14:28:53Influenza, split virus, trivalent, nmlhqteakyfn21/11/2012completedDebra Brien null, [facility]01/05/2025 10:22:46Influenza, split virus, trivalent, fzcupwfecyly54/27/2008completedDezlucius OReilley null, [facility]08/28/2024 14:28:53Influenza, split virus, trivalent, pisnvyqgqssd78/01/2007completedDebra [place] null, [facility]07/15/2023 11:50:53Influenza, split virus, trivalent, wonmgoaqvbee71/11/2006completedDebra Brien null, [facility]07/15/2023 11:50:53Influenza, split virus, trivalent, mhyjzawjimyf89/30/2011completedDebra Brien null, [facility]01/05/2025 10:22:46Novel becuzzqho-B9U6-0522/18/2009 completedDebra Brien null, [facility]01/05/2025 10:22:46Td (adult), 5 Lf tetanus toxoid, preservative free, wyejfjjp51/10/2020completedDebra [place] null, [facility]01/05/2025 10:22:46Td (adult), 2 Lf tetanus toxoid, preservative free, qhzkjium55/01/2002completedDebra Brien null, [facility]07/15/2023 11:50:53Influenza, split virus, quadrivalent, PF02/18/2015completedDebra Brien null, [facility]01/05/2025 10:22:46Influenza, adjuvanted, quadrivalent, PF 1completedNot YedypwovtXkxsgdYybzfl05/10/2025 14:01:20COVID-19, mRNA, LNP-S, PF, 30 mcg/0.3 mL dose1completedNot Available[facility] 04/02/2025 14:01:20Influenza, split virus, quadrivalent, PF05/10/2009completed Not BqbstdgrkNzqmidPtzggi16/10/2025 14:01:20COVID-19, mRNA, LNP-S, PF, 30 mcg/0.3 mL dose, jasmyn-rxzuzpd48/18/2022completedNot AvailableAthSent[facility] 04/02/2025 14:01:20COVID-19, mRNA, LNP-S, bivalent, PF, 50 mcg/0.5 mL or 25mcg/0.25 mL dose2completedNot BlpssllojYvyipnWetbkc10/10/2025 14:01:20Influenza, adjuvanted, quadrivalent, PF2completedNot Available OxjirpJbzbxj51/10/2025 14:01:20COVID-19, mRNA, LNP-S, PF, 50 mcg/0.5 mL 03/02/2023ompletedNot TcpridkbhBqufavTscrnj27/10/2025 14:01:20Influenza, high- dose, quadrivalent, PF03/14/2023ompletedNot VnqoipinbWjzcuaCitulr28/10/2025 14:01:20zoster prqgbutnqvh85/24/2024ompletedNot GijuxcrykIthfsoSnuqxu98/10/2025 14:01:20zoster aabaisyzrbs16/07/2024ompletedNot VctgcbizlKdmunsXdbwdl42/10/2025 14:01:20COVID-19, mRNA, LNP-S, PF, 50 mcg/0.5 mL02/09/2024ompletedNot Available XoygzrEgsdvm20/10/2025 14:01:20Influenza, high-dose, trivalent, PF03/06/2024 completedNot LfrfwjcckKixbkvJijbab54/10/2025 14:01:20RSV, bivalent, protein subunit RSVpreF, diluent reconstituted, 0.5 mL, PF03/29/2024ompletedNot RusvuftkiOvjmikAgwskv72/10/2025 14:01:20Novel Frirmkouh-B5W4-52, all hkbwgeqivefp22/18/2009completedDebra Brien null, [facility] Pblwfkp6201/05/2025 10:22:46Influenza, split virus, trivalent, PF 04/22/2011completedDebra [place] null, [facility] Mwtgxhk2701/05/2025 10:22:46Influenza, adjuvanted, trivalent, PF 01/29/2025ompletedNot CemfpcvttIgsjjjVfqagk24/10/2025 14:01:20COVID-19, mRNA, LNP-S, PF, jasmyn-sucrose, 30 mcg/0.3 mL02/17/2025ompletedNot Available QrzodxDrzvvo22/10/2025 14:01:20 Past Encounters Encounter ID Performer Location Encounter Start Date Encounter Closed Date Diagnosis/Indication Diagnosis SNOMED-CT Code Diagnosis ICD10 Code Diagnosis IMO Codes Diagnosis Note [id number] Feliz Maddox MD [facility] [address] [place] [address] 02/21/2021 14:40:44 02/26/2021 09:17:07 Kidney stone 60852518 N20.0 Jerome ygmrgcmzs887977033A70.0 [id number] Strange [address] [place] [address] 09/15/2021 15:21:48009/22/2021 12:57:47Ureteric pxntm03013490W83.1 Kidney etoyy28737750D61.0 multiple bilateral stones.[id number] Strange [address] [place] [address] 07/02/2023 14:38:0707/08/2023 16:06:51Recurrent urinary tract pfubgfcbe600751477 N39.0 Kidney lfbps84487197H41.0 multiple bilateral stones.Jerome iyscynlgs816881645T09.0 [id number] Strange [address] [place] [address] 10/22/2023 11:38:24010/25/2023 12:23:19Recurrent urinary tract uripndhsx839644144 N39.0 Increased frequency of gkhmaguup772534462B16.0 Edvkzpb09246579K18.0 [id number] Strange [address] [place] [address] 12/03/2023 14:58:00012/18/2023 17:01:46Increased frequency of gfppscvcl103405617 R35.0 Recurrent urinary tract xheshhoah786487635L10.0 Gcwfiwz68326473N54.0 [id number] Strange [address] [place] [address] 03/03/2024 15:25:191 09:58:00Increased frequency of zhanezkiv031375586 R35.0 [id number] Strange [address] [place] [address] 06/05/2024 11:22:55006/08/2024 16:00:35Increased frequency of kuqjpawvj635788535 R35.0 [id number] Strange [address] [place] [address] 08/28/2024 13:16:11008/29/2024 10:53:25Increased frequency of tvpjkqttc190603468 R35.0 [id number] Strange_Fransisc[facility]agner [address] [place] [address] 01/08/2025 14:30:00001/09/2025 09:58:30Increased frequency of xbcppydns220541347 R35.0 [id number] Smith_Fransiscoa [address] [place] [address] 04/02/2025 13:56:38106/03/2024 11:48:92Zgvrnvu11640010Y46.0 Health Concerns Section Related Observation LastModified by Organization Detai ls LastModified Time None Recorded Concern Status LastModified by Organization Details LastModified Time None Recorded Advance Directives Directive None Recorded Payers Insurance Date Sequence Insurance Name Policy Number Policy Philip Covered Member ID Philip Member ID Guarantor Name 04/02/2025 1 [employer] [id number] Dolly A Chau [id number] Dolly ChauMEDICA - DOS ON OR AFTER 2020 - MEDICA GOVERNMENT PROGRAMS - ADVANTAGE SOLUTION (MEDICARE REPLACEMENT/ADVANTAGE - PPO) [id number] [id number] A Hanson Notes Date Note Type Note Provider Name and Address Orga nization Details Recorded Time 03/03/2024 text/html follow up O[facility] and MARIBEL taking gemtesa and tamsulosin, got UTI end of Jan. treated with cefpodoxime,UA clear today and PVR 11ml. needs refill on tamsulosin.Feliz Maddox MD [address] [facility],[address], [place], [address], [facility] Pscpicp27/11/2024 15:54:34006/05/2024text/html taking tamsulosin and gemtesa. voiding well, minimal dysuria.Mariela marcano [facility] Ncaiejh6306/05/2024 12:32:1204text/html follow up frequency, taking tamsulosin and gemtesa. doing well and PVR 0ml today. has occasional daytime dysuria.Feliz Maddox MD [address] [facility],[address], [place], [address], [facility] Dgvwwkx8908/28/2024 14:37:49001/08/2025text/html follow up OAB.taking tamsulosin and gemtesa. started estrogen cream for vagiinitis a week ago. not much change yet. needs refill on tamsulosin rx with next visit [facility]A clear and ME 4ml today.Feliz Maddox MD [address] [facility],[address], [place], [address], [facility] Pwohocu2001/08/2025 14:56:14106/02/2024text/html been treated for vaginitis with bactroban and lotrisone, and estrogen cream and doing well, seeing pelvic floor therapy soon. UA bland todayDezera Riddhi marcano [facility] Pdzmjhb50/10/2025 14:30:33 OBGyn Episode No OBEpisode recorded.
--- OUTSIDE RECORDS SUMMARY | 2025-05-17 01:03 | XMS_ITS | CCD ---
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 0123 POLYCYTHEMIA VERA - ALISE CORBYT, DO Medications Date Name Route Dose Frequency Instructions Start Date End Date Status Fill Status Indication 12/04/2019 Ascorbic Acid Oral PO 1.0 tablet daily mlczeawz73/13/2020Docusate Sodium OralPO1.0 capsulePRNfor constipationactive 12/04/2019Ferrous Sulfate OralPO1.0 styuhoxdwnnxkordj65/13/2020Tamsulosin OralPO 1.0 euwmiypywilisbnkos09/13/2020Hydrochlorothiazide OralPO1.0 capsuledailyactive 12/04/2019Vitamin E Vrsxavnfot34/13/2020Clopidogrel OralPO1.0 tabletdailyactive 12/04/2019Hydroxyurea OralPO1.0 ifjoewrKWIipojtm60/13/2020Aspirin OralPO1.0 tqqquhuqhkfzpppqn71/13/2020Cholecalciferol OralPO1.0 capsuledailyactive 12/04/2019Simvastatin OralPO1.0 tabletdailyactive Problems Diagnosis Status Date of Diagnosis Resolution Date Polycythemia vera Active Social History Date Name Value 12/04/2019 Sex Female
[2025-05-17 01:26] LABS: Hematocrit* 36.0 % (33.0-51.0); Hemoglobin* 11.5 gm/dL (12.0-16.0); Immature Granulocytes Pct Auto 0.5 %; Mean Corpuscular HGB Conc 32 gm/dL (32-36); Mean Corpuscular Hemoglobin 40 pg (26-34); Mean Corpuscular Volume 126 fL (80-100); RDW Coefficient of Variation % 14.6 % (11.5-15.5); Red Blood Count* 2.85 m/uL (4.00-5.20); White Blood Count* 3.90 K/uL (4.50-11.00)
[2025-05-17 01:29] LABS: Immature Granulocytes Abs Auto 0.00 K/uL (0.00-0.30); Lymphocytes Absolute Auto 1.40 K/uL (0.90-2.90)
[2025-05-17 01:30] LABS: Slide Review Reflex No
[2025-05-17 01:55] LABS: Chloride* 101 mmol/L (96-114); Potassium* 4.4 mmol/L (3.6-5.1); Sodium* 137 mmol/L (135-149)
[2025-05-17 01:58] LABS: Blood Urea Nitrogen* 21 mg/dL (7-30); Creatinine* 0.8 mg/dL (0.5-1.5); Est. Creatinine Clearance* 32.17; Estimated Glomerular Filt Rate 73 ml/min
[2025-05-17 01:59] LABS: Anion Gap 6 mEq/L (7-15); Calcium* 9.6 mg/dL (8.4-10.6); Carbon Dioxide* 30 mmol/L (20-32); Glucose* 109 mg/dL (60-115)
[2025-05-17] MEDS: BACITRACIN 0.9 GM PACKET 1 EACH TOPICAL (02:43)
[2025-05-17 02:59] LABS: D Dimer Quantitative* 0.50 ug/ml (0.00-0.50)
== END 2025-05-17 02:35 | disposition home or self-care (01) ==
PROVIDERS: Emergency Provider Family Medicine; PCP Family Medicine
DX: R22.42 Localized swelling, mass and lump, left lower limb (principal); L97.329 Non-pressure chronic ulcer of left ankle with unspecified severity
CPT/HCPCS: 36415; 80048; 85025; 85379; 86140; 99283; 99284; A9270